=== PATIENT | male | born 1960 | race Caucasian/White ===

== ENCOUNTER 2018-05-31 11:46 | Inpatient (IN) | payer OTHER ==
[~2018-05-31] VITALS: Ht 185.4 cm; Wt 85.3 kg
[~2018-05-31 11:46] MED LIST: ASPI-983 PO; BIOT10005 PO; LORA-404 PO; MULT-517 PO
--- NOTE | 2018-05-31 12:28 | ED Neurological Problem ---
General Stated Complaint: DISORIENTED,AMS Source: patient Exam Limitations: no limitations History of Present Illness Date Seen by Provider: May 31, 2018 Time Seen by Provider: 12:02 Initial Comments Patient comes to the hospital with a chief complaint that he doesn't know what' s wrong. He says he was just in the hospital after a particularly bad alcoholic odom. He says he does not drink every day but he does drink on a binge basis. Wine beer. Says he got out he was feeling much better until yesterday about noon he started having tremors all over. He couldn't stop them. At 3:30 this morning he said he got up to go the bathroom and when he came back he rolled out of his bed. Says his last alcoholic drink was last night about 1900 he had one half glass of wine. He denies use of any recreational drugs although 2 days ago he does admit to having a single puff of marijuana. He says he landed on the floor all the way on his left side and he may have struck his head but he did not lose consciousness. He's having some soreness for the past day or so in his neck and he has a history of breaking his neck when he was younger. He is not having any weakness numbness or loss of control of bowel or bladder inability to walk. No fevers chills cough chest pain shortness of breath nausea vomiting diarrhea constipation or rash. Patient got up this morning to work out but just didn't feel up to it. He does take multivitamins and some testosterone supplements every day. He does not follow with a primary care provider. Allergies and Home Medications Allergies Coded Allergies: No Allergy Information Available (Unverified , 05/24/18) Home Medications Aspirin 81 Mg Tablet.dr, 81 MG PO DAILY, (Reported) Biotin 10,000 Mcg Capsule, 10,000 MCG PO DAILY, (Reported) Lorazepam 0.5 Mg Tablet, 0.5 MG PO TID PRN for ANXIETY Prescribed by: ESTIVEN AQUINO on 05/25/18 1034 Multivitamin 1 Each Tablet, 1 TAB PO DAILY, (Reported) Patient Home Medication List Home Medication List Reviewed: Yes Review of Systems Review of Systems Constitutional: No chills, No diaphoresis, No fever, No malaise Eyes: Denies Blindness, Denies Blurred Vision Ears, Nose, Mouth, Throat: denies ear pain, denies ear discharge Respiratory: No cough, No hemoptysis Cardiovascular: No chest pain, No Hx of Intervention, No palpitations, No syncope, No vascular heart diseas Gastrointestinal: No abdominal pain, No constipation, No diarrhea, No nausea, No vomiting Genitourinary: No discharge, No dysuria Musculoskeletal: No back pain, No joint pain; neck pain Skin: No pruritus, No rash Past Gapfnuc-Nmbnkt-Duagiz Hx Patient Social History Alcohol Use: Regular Use Alcohol Beverage of Choice: Wine Recreational Drug Use: Yes Drug of Choice: marijuana Smoking Status: Never a Smoker Type Used: Cigarettes Former Smoker, Quit: May 04, 2018 2nd Hand Smoke Exposure: No Recent Foreign Travel: No Contact w/Someone Who Travel: No Recent Hopitalizations: No Immunizations Up To Date Tetanus Booster (TDap): Unknown Seasonal Allergies Seasonal Allergies: No Past Medical History Surgeries: Yes Abdominal, Orthopedic Respiratory: No Cardiac: No Neurological: No Genitourinary: No Gastrointestinal: No Musculoskeletal: Yes (C-SPINE FRACTURE WHEN YOUNG. ) Endocrine: No HEENT: No Cancer: No Psychosocial: Yes (SUICIDAL IDEATION, ALCOHOLISM) Depression Integumentary: No Blood Disorders: No Adverse Reaction/Blood Tranf: No Family Medical History Patient reports no known family medical history. Hypertension Physical Exam Vital Signs Vital Signs - First Documented 05/31/18 05/31/18 11:53 14:36 Temp 98.8 Pulse 89 Resp 16 B/P (MAP) 114/76 (89) Pulse Ox 98 O2 Delivery Room Air Capillary Refill : Height, Weight, BMI Height: 6'0.00" Weight: 181lbs. 1.0oz. 82.656638jw; 24.6 BMI Method:Stated General Appearance: WD/WN, no apparent distress HEENT: PERRL/EOMI, normal ENT inspection, TMs normal, pharynx normal Neck: full range of motion, supple, normal inspection, tender midline ( posterior C6-C7) Respiratory: chest non-tender, lungs clear, normal breath sounds, no respiratory distress, no accessory muscle use Cardiovascular: normal peripheral pulses, regular rate, rhythm, no edema Peripheral Pulses: 2+ Radial Pulses (R), 2+ Radial Pulses (L) Gastrointestinal: normal bowel sounds, non tender, soft Back: normal inspection, no vertebral tenderness Extremities: normal range of motion, normal inspection, no pedal edema, normal capillary refill Neurologic/Psychiatric: no motor/sensory deficits, alert, normal mood/affect, oriented x 3 Crainal Nerves: normal hearing, normal speech, PERRL Coordination/Gait: normal finger to nose, normal gait Motor/Sensory: no motor deficit, no sensory deficit, no pronator drift Skin: normal color, warm/dry Progress/Results/Core Measures Results/Orders Lab Results Laboratory Tests Test 05/31/18 12:19 05/31/18 14:18 05/31/18 14:35 Range/Units White Blood Count 6.3 4.3-11.0 10^3/uL Red Blood Count 3.96 L 4.35-5.85 10^6/uL Hemoglobin 12.5 L 13.3-17.7 G/DL Hematocrit 36 L 40-54 % Mean Corpuscular Volume 92 80-99 FL Mean Corpuscular Hemoglobin 32 25-34 PG Mean Corpuscular Hemoglobin Concent 34 32-36 G/DL Red Cell Distribution Width 15.1 H 10.0-14.5 % Platelet Count 207 130-400 10^3/uL Mean Platelet Volume 8.6 7.4-10.4 FL Neutrophils (%) (Auto) 62 42-75 % Lymphocytes (%) (Auto) 20 12-44 % Monocytes (%) (Auto) 16 H 0-12 % Eosinophils (%) (Auto) 1 0-10 % Basophils (%) (Auto) 1 0-10 % Neutrophils # (Auto) 3.9 1.8-7.8 X 10^3 Lymphocytes # (Auto) 1.3 1.0-4.0 X 10^3 Monocytes # (Auto) 1.0 0.0-1.0 X 10^3 Eosinophils # (Auto) 0.1 0.0-0.3 10^3/uL Basophils # (Auto) 0.1 0.0-0.1 10^3/uL Sodium Level 139 135-145 MMOL/L Potassium Level 3.5 L 3.6-5.0 MMOL/L Chloride Level 103 98-107 MMOL/L Carbon Dioxide Level 26 21-32 MMOL/L Anion Gap 10 5-14 MMOL/L Blood Urea Nitrogen 14 7-18 MG/DL Creatinine 0.84 0.60-1.30 MG/DL Estimat Glomerular Filtration Rate > 60 BUN/Creatinine Ratio 17 Glucose Level 154 H 70-105 MG/DL Calcium Level 9.3 8.5-10.1 MG/DL Corrected Calcium 9.5 8.5-10.1 MG/DL Magnesium Level 2.3 1.8-2.4 MG/DL Total Bilirubin 0.6 0.1-1.0 MG/DL Aspartate Amino Transf (AST/SGOT) 53 H 5-34 U/L Alanine Aminotransferase (ALT/SGPT) 89 H 0-55 U/L Alkaline Phosphatase 104 40-136 U/L Total Protein 6.3 L 6.4-8.2 GM/DL Albumin 3.8 3.2-4.5 GM/DL Thyroid Stimulating Hormone (TSH) 0.91 0.35-4.94 UIU/ML Serum Alcohol < 10 <10 MG/DL Ammonia 45 H 11-32 UMOL/L My Orders Orders - MARIAJOSE PLASCENCIA Ct Head/Cervical Spine Wo (05/31/18 12:16) Saline Lock/Iv-Start (05/31/18 12:16) Alcohol (05/31/18 12:16) Cbc With Automated Diff (05/31/18 12:16) Comprehensive Metabolic Panel (05/31/18 12:16) Magnesium (05/31/18 12:16) Thyroid Stimulating Hormone (05/31/18 12:16) Ketorolac Injection (Toradol Injection) (05/31/18 12:30) Ammonia (05/31/18 13:29) Ua Culture If Indicated (05/31/18 14:09) Drug Screen Stat (Urine) (05/31/18 14:09) Acetaminophen (05/31/18 14:09) Salicylate (05/31/18 14:09) Ekg Tracing (05/31/18 14:09) Bh Status Checks/Observation Q15M (05/31/18 14:09) Thiamine Injection (Vitamin B-1 Injectio (05/31/18 14:45) Ns Iv 500 Ml (Sodium Chloride 0.9%) (05/31/18 14:56) Medications Given in ED Current Medications Medications Dose Ordered Sig/Ernie Route Start Time Stop Time Status Last Admin Dose Admin Ketorolac Tromethamine 30 mg ONCE ONCE IM 05/31/18 12:30 05/31/18 12:31 DC 05/31/18 12:54 30 MG Vital Signs/I&O 05/31/18 05/31/18 11:53 14:36 Temp 98.8 Pulse 89 84 Resp 16 16 B/P (MAP) 114/76 (89) 136/89 (105) Pulse Ox 98 O2 Delivery Room Air Room Air Progress Progress Note #1: Time: 12:29 Progress Note Patient has tremors and this seems to be the thing that some vexing him. He is neurologically intact. He did have a fall and is having some tenderness in his neck. We have discussed doing a CT to rule out occult intracranial hemorrhage and look at his cervical spine since she's having some tenderness midline. He is not having any radiculopathy symptoms. We'll check some basic labs look for electrolyte disorders. Not having any other focal symptoms. If he had a have a glass of wine over 12 hours ago I would expect him to have a negative alcohol level. I reviewed his admission and discharge note from May 24, last week. He indicates that he is having a lifetime history of drinking alcohol until suicide attempts and suicidal ideation in the past as well as he had grabbed a shot gun and threatened to shoot himself while having an apartment with his daughter and was brought in by PD. Does not seem that he was extremely cooperative or forthcoming with providers and he was given a small supply of Ativan and sent home to follow up outpatient. When asked the patient if he wanted something for his neck pain offered him a shot or tablets and he asked me how many tablets I was going to give him to go home with. He is also adamant that he does not want to a urine drug screen done today. Think we can rule out any medical concerns his tremulousness is probably consistent with ceasing use of alcohol and DVTs and we will point him in the direction of outpatient drug and alcohol treatment. Progress Note #2: Time: 14:42 Progress Note Nursing staff witnessed the patient yelling at the neighboring patient saying that he was talking about his private information and he was going to myah the hospital and doctors as well as beat up that other patient. There was no one in the room with the patient at the time. The daughter also showed up and gave some more history that the patient's been acting bizarrely and had a much stronger history of drinking than what he is letting on. If he is a full-blown alcoholic and that she found 48 double bottles of wine in his house 5 days after he moved in that were not there 5 days prior when they helped him move then. She says that he also tells his friends here and [place] that he's out spinning time with his daughters with the daughter say that he is telling the daughters he is spinning all his time with friends. She suspects he just sits at home and drinks alcohol all day. He's had a couple trips to rehabilitation over the years and always leaves prematurely. She says he's had hallucinations before since getting to [place] but no history of psychiatric diagnoses. At this time his ammonia levels elevated which could be causing a hepatic encephalopathy but I'm also suspicious for work encephalopathy since this is been going on for several weeks. I ordered 500 mg of thiamine to be given over 30 minutes in addition to lactulose. Spoke to internal medicine about admitting the patient. At this time the patient is also telling me that he has completely quit drinking and does not intend to restart. Lab advises me that the alcohol level is actually 0 and that the original lab value was incorrect. Apparently this is a calibration issue. Diagnostic Imaging Diagonstic Imaging: CT (c/o) Plain Films/CT/US/NM/MRI: c-spine, head Comments VIA [facility]. [place], [place] NAME: JULITO FLOREZ [facility] REC#: [id number] PT STATUS: REG ER : 1960 PHYSICIAN: MARIAJOSE PLASCENCIA MD ADMIT DATE: 05/31/18/ER Draft Date of Exam:05/31/18 CT HEAD/CERVICAL SPINE WO INDICATION: Tremors and fall with head and neck pain. CT BRAIN FINDINGS: Noncontrast brain CT is performed. There are no extra-axial fluid collections. No intracranial hemorrhage. No intracranial mass or mass effect. No midline shift. The ventricles are normal in size and position. There are no focal parenchymal abnormalities in the brain. Calvarial windows are unremarkable. CT CERVICAL SPINE FINDINGS: Axial slices are obtained with sagittal and coronal reconstructions without contrast. There are degenerative changes at C1-2 junction. There are diffuse degenerative changes throughout the cervical spine, most prominent at C4-5 and C5-6 with osteophyte formation anteriorly. There is diffuse mild facet degenerative change. IMPRESSION: CT brain was unremarkable. CT cervical spine demonstrates multilevel degenerative changes with no acute fracture or subluxation. Dictated on workstation # [id number] Dict: 05/31/18 1252 Trans: 05/31/18 1258 [id number] Interpreted by: JAZMINE COTA MD Electronically signed by: Reviewed: Reviewed by Me Departure Communication (Admissions) Time/Spoke to Admitting Phy: 14:[address] Potts and she agrees to take the patient. Impression Primary Impression: Hepatic encephalopathy Additional Impression: Wernicke encephalopathy syndrome Disposition: ADMITTED INPATIENT Condition: Stable Admissions Decision to Admit Reason: Admit from ER (General) Decision to Admit/Date: May 31, 2018 Time/Decision to Admit Time: 15:07 Departure-Patient Inst. Referrals: NO,LOCAL PHYSICIAN (PCP/Family) Primary Care Physician MARIAJOSE PLASCENCIA May 31, 2018 12:28
[2018-05-31 12:29] LABS: BASOPHILS # (AUTO) 0.1 10^3/uL (0.0-0.1); BASOPHILS % (AUTO) 1 % (0-10); EOSINOPHILS # (AUTO) 0.1 10^3/uL (0.0-0.3); EOSINOPHILS % (AUTO) 1 % (0-10); HEMATOCRIT 36 % (40-54); HEMOGLOBIN 12.5 G/DL (13.3-17.7); LYMPHOCYTES # (AUTO) 1.3 X 10^3 (1.0-4.0); LYMPHOCYTES % (AUTO) 20 % (12-44); MEAN CORPUSCULAR HEMOGLOBIN 32 PG (25-34); MEAN CORPUSCULAR HGB CONC 34 G/DL (32-36); MEAN CORPUSCULAR VOLUME 92 FL (80-99); MEAN PLATELET VOLUME 8.6 FL (7.4-10.4); MONOCYTES % (AUTO) 16 % (0-12); NEUTROPHILS # (AUTO) 3.9 X 10^3 (1.8-7.8); NEUTROPHILS % (AUTO) 62 % (42-75); PLATELET COUNT 207 10^3/uL (130-400); RED BLOOD COUNT 3.96 10^6/uL (4.35-5.85); RED CELL DISTRIBUTION WIDTH 15.1 % (10.0-14.5); WHITE BLOOD COUNT 6.3 10^3/uL (4.3-11.0)
[2018-05-31] MEDS ORDERED: KETOROLAC 30 MG/ML VIAL IM ONE (12:30)
[2018-05-31 12:52] LABS: ALANINE AMINOTRANSFERASE 89 U/L (0-55); ALBUMIN 3.8 GM/DL (3.2-4.5); ALKALINE PHOSPHATASE 104 U/L (40-136); BILIRUBIN,TOTAL 0.6 MG/DL (0.1-1.0); BUN/CREATININE RATIO 17; CALCIUM 9.3 MG/DL (8.5-10.1); CARBON DIOXIDE 26 MMOL/L (21-32); CHLORIDE 103 MMOL/L (98-107); CREATININE SERUM 0.84 MG/DL (0.60-1.30); GFR ESTIMATED > 60; GLUCOSE 154 MG/DL (70-105); MAGNESIUM 2.3 MG/DL (1.8-2.4); POTASSIUM 3.5 MMOL/L (3.6-5.0); SODIUM 139 MMOL/L (135-145); TOTAL PROTEIN 6.3 GM/DL (6.4-8.2)
--- NOTE | 2018-05-31 12:58 | Diagnostic Imaging Report ---
INDICATION: Tremors and fall with head and neck pain. CT BRAIN FINDINGS: Noncontrast brain CT is performed. There are no extra-axial fluid collections. No intracranial hemorrhage. No intracranial mass or mass effect. No midline shift. The ventricles are normal in size and position. There are no focal parenchymal abnormalities in the brain. Calvarial windows are unremarkable. CT CERVICAL SPINE FINDINGS: Axial slices are obtained with sagittal and coronal reconstructions without contrast. There are degenerative changes at C1-2 junction. There are diffuse degenerative changes throughout the cervical spine, most prominent at C4-5 and C5-6 with osteophyte formation anteriorly. There is diffuse mild facet degenerative change. IMPRESSION: CT brain was unremarkable. CT cervical spine demonstrates multilevel degenerative changes with no acute fracture or subluxation. Dictated by: Dictated on workstation # [id number]
[2018-05-31 14:36] VITALS: BP 136/89
[2018-05-31] MEDS ORDERED: THIAMINE 100 MG/ML 2 ML (VITAMIN B-1) VIAL IV ONE (14:45)
[2018-05-31 14:54] LABS: BILIRUBIN,URINE NEGATIVE (NEGATIVE); CLARITY,URINE CLEAR; COLOR,URINE YELLOW; GLUCOSE, URINE (UA) NEGATIVE (NEGATIVE); KETONES,URINE 2+ (NEGATIVE); LEUKOCYTE ESTERASE ,URINE 1+ (NEGATIVE); NITRITE,URINE NEGATIVE (NEGATIVE); PH,URINE 5 (5-9); PROTEIN,URINE 2+ (NEGATIVE); UROBILINOGEN,URINE NORMAL (NORMAL)
[2018-05-31] MEDS ORDERED: NS IV 500 ML 500 ML ONE (14:56)
[2018-05-31 15:06] LABS: BACTERIA,URINE TRACE /HPF; RBC,URINE RARE /HPF; SQUAMOUS EPITHELIAL CELL,UR RARE /HPF
[2018-05-31 15:08] LABS: AMPHETAMINE SCREEN, URINE NEGATIVE (NEGATIVE); BARBITURATE SCREEN URINE NEGATIVE (NEGATIVE); BENZODIAZEPINES SCREEN URINE NEGATIVE (NEGATIVE); CANNABINOID SCREEN, URINE POSITIVE (NEGATIVE); COCAINE SCREEN URINE NEGATIVE (NEGATIVE); METHADONE STAT NEGATIVE (NEGATIVE); METHAMPHETAMINE SCREEN URINE S NEGATIVE (NEGATIVE); OPIATE SCREEN URINE NEGATIVE (NEGATIVE); OXYCODONE STAT NEGATIVE (NEGATIVE); PROPOXYPHENE STAT NEGATIVE (NEGATIVE); TRICYCLIC ANTIDEPRESSANTS SCRE NEGATIVE (NEGATIVE)
[2018-05-31] MEDS ORDERED: LACTULOSE SYRUP 10GM/15ML (ENULOSE) 30ML UDC PO ONE (15:45)
[2018-05-31 16:02] LABS: SALICYLATE < 5.0 MG/DL (5.0-20.0)
[2018-05-31 16:05] LABS: ACETAMINOPHEN < 10 UG/ML (10-30)
[2018-05-31 17:20] VITALS: BP 138/75
[2018-05-31] MEDS ORDERED: 1/2 NS IV SOLUTION 1,000 ML IV PRN (17:37)
[2018-05-31] MEDS ORDERED: CATHETER FLUSH 10 ML SYR IV PRN (17:45)
[2018-05-31] MEDS ORDERED: ANTACID SUSP 30 ML UDC (MYLANTA) PO PRN (17:45)
[2018-05-31] MEDS ORDERED: ONDANSETRON 4 MG/2 ML (SDV) Z0FRAN IV PRN ×2 (17:45)
[2018-05-31] MEDS ORDERED: LORazepam INJ 2 MG/ML (ATIVAN) VIAL IV PRN (17:45)
[2018-05-31] MEDS ORDERED: D5 1/2 NS 1000 ML IV SOLUTION 1,000 ML IV PRN (17:45)
[2018-05-31] MEDS ORDERED: SENNA W/DOCUSATE (SENOKOT S) TABLET PO PRN (17:45)
[2018-05-31] MEDS ORDERED: ONDANSETRON 4 MG (ZOFRAN) ORAL DISSOLVE TAB SL PRN (17:45)
[2018-05-31] MEDS ORDERED: LORazepam INJ 2 MG/ML (ATIVAN) VIAL IM/IV PRN (17:45)
[2018-05-31] MEDS: KETOROLAC 15 MG/ML VIAL IV PRN (18:06)
[2018-05-31] MEDS: LORazepam 1 MG (ATIVAN) TAB PO PRN ×5 (18:06→23:52)
[2018-05-31 20:17] VITALS: BP 115/69
[2018-05-31] MEDS: LACTULOSE SYRUP 10GM/15ML (ENULOSE) 30ML UDC PO SCH (20:48)
[2018-05-31] MEDS ORDERED: THIAMINE INJECTION 500 MG in NS (IVPB) 50 ML IV SCH (21:00)
[2018-05-31] MEDS: CATHETER FLUSH 10 ML SYR IV SCH (22:13)
[2018-05-31] MEDS: THIAMINE IV SCH (22:13)
[2018-05-31] MEDS: NS IV SCH (22:13)
[2018-06-01] VITALS: BP 107/62
[2018-06-01 04:00] VITALS: BP 121/70
[2018-06-01] MEDS: LORazepam 1 MG (ATIVAN) TAB PO PRN ×2 (04:07→21:38)
[2018-06-01 05:24] LABS: BASOPHILS % (AUTO) 1 % (0-10); EOSINOPHILS # (AUTO) 0.2 10^3/uL (0.0-0.3); EOSINOPHILS % (AUTO) 3 % (0-10); HEMATOCRIT 34 % (40-54); HEMOGLOBIN 11.5 G/DL (13.3-17.7); LYMPHOCYTES # (AUTO) 1.6 X 10^3 (1.0-4.0); LYMPHOCYTES % (AUTO) 31 % (12-44); MEAN CORPUSCULAR HEMOGLOBIN 32 PG (25-34); MEAN CORPUSCULAR HGB CONC 34 G/DL (32-36); MEAN CORPUSCULAR VOLUME 92 FL (80-99); MEAN PLATELET VOLUME 8.5 FL (7.4-10.4); MONOCYTES # (AUTO) 0.8 X 10^3 (0.0-1.0); MONOCYTES % (AUTO) 16 % (0-12); NEUTROPHILS # (AUTO) 2.7 X 10^3 (1.8-7.8); NEUTROPHILS % (AUTO) 50 % (42-75); PLATELET COUNT 195 10^3/uL (130-400); RED BLOOD COUNT 3.63 10^6/uL (4.35-5.85); RED CELL DISTRIBUTION WIDTH 15.1 % (10.0-14.5); WHITE BLOOD COUNT 5.4 10^3/uL (4.3-11.0)
[2018-06-01 05:45] LABS: ALANINE AMINOTRANSFERASE 68 U/L (0-55); ALBUMIN 3.2 GM/DL (3.2-4.5); ALKALINE PHOSPHATASE 85 U/L (40-136); AMMONIA 19 UMOL/L (11-32); BILIRUBIN,TOTAL 0.5 MG/DL (0.1-1.0); BUN/CREATININE RATIO 16; CALCIUM 8.5 MG/DL (8.5-10.1); CARBON DIOXIDE 25 MMOL/L (21-32); CHLORIDE 104 MMOL/L (98-107); CREATININE SERUM 0.75 MG/DL (0.60-1.30); GFR ESTIMATED > 60; GLUCOSE 100 MG/DL (70-105); POTASSIUM 3.3 MMOL/L (3.6-5.0); SODIUM 138 MMOL/L (135-145); TOTAL PROTEIN 5.2 GM/DL (6.4-8.2)
[2018-06-01] MEDS: MULTIVIT W/MINERALS TAB (THERAGRAN M) PO SCH (07:09)
[2018-06-01] MEDS: KETOROLAC 15 MG/ML VIAL IV PRN (07:09)
[2018-06-01] MEDS: CATHETER FLUSH 10 ML SYR IV SCH ×3 (07:10→21:14)
[2018-06-01] MEDS ORDERED: POTASSIUM CL 10MEQ/50ML IVPB 50 ML IV SCH (07:15)
[2018-06-01] MEDS ORDERED: KCL 20 MEQ POWDER FOR ORAL SOLUTION PO NR (07:15)
[2018-06-01 08:00] VITALS: BP 106/55
[2018-06-01] MEDS: FOLIC ACID 1 MG TAB PO SCH (08:27)
[2018-06-01] MEDS: ASPIRIN 81 MG CHEW (CHILDREN'S ASA) PO SCH (08:27)
[2018-06-01] MEDS: LACTULOSE SYRUP 10GM/15ML (ENULOSE) 30ML UDC PO SCH ×3 (08:27→21:14)
[2018-06-01] MEDS: THIAMINE IV SCH ×3 (08:27→21:14)
[2018-06-01] MEDS: NS IV SCH ×3 (08:27→21:14)
--- NOTE | 2018-06-01 08:27 | History & Physical-Hospitalist ---
History of Present Illness HPI/Chief Complaint Pt is a 58yoCM with a PMH of alcohol abuse who presented to the ER yesterday for evaluation of tremors after a fall. He does not recall how he feel but he hit his back and neck and was worried he injured it since he has a previous neck injury from 40 years ago. During his stay in the hospital he was found to have auditory hallucinations in his room. He was yelling at a "person" in the room next door that he had heard talking about him. Nursing staff confirmed there was no person in the room or near the patient. Today he states he's been having auditory hallucination for the past week since he quit drinking. He has a long history of very heavy drinking since he was 20yo until the age of 42. Then he "cut back" to 4-5 beers and 2-3 glasses of wine per night. He states he was sober for 3 years ago (though admits to drinking occasionally during that time but "only a few beers here and there"). Roughly 3 weeks ago he resumed binge drinking and was drinking 2 bottles of wine per day. He was hospitalized 1 week ago for depression with suicidal ideation and withdraw. He was screened by mental health and recommended to follow up with AA which he states he's done. He also told me that he has been completely sober in the past week and has not had any alcohol. He told the ER physician he had a half glass of wine the night before admission (05/30) though. When confronted with this he states he did have a half glass of wine but that it was on Wednesday. He is requesting benzos as he believes them to be "non addictive" and will replace his alcohol use that he uses to treat his anxiety. He reports a history of withdrawal form benzos a few year ago where he had a withdrawal seizure. Source: patient Exam Limitations: other (poor historian with varying history) Date Seen 06/01/18 Time Seen by Provider: 08:11 Attending Physician Marco Antonio Potts MD PCP No,Local Physician Referring Physician Date of Admission May 31, 2018 at 3:19 pm Home Medications & Allergies Home Medications Reviewed patient Home Medication Reconciliation performed by pharmacy medication reconciliations pipe organ technician and/or nursing. Patients Allergies have been reviewed. Allergies Allergies Coded Allergies No Allergy Information Available (Unverified05/24/18) Past Slpfwen-Qnrfyl-Byizix Hx Past Med/Social Hx: Reviewed Nursing Past Med/Soc Hx Patient Social History Marrital Status: Alcohol Use: Regular Use Alcohol Beverage of Choice: Beer, Wine Recreational Drug Use: Yes Drug of Choice: marijuana Smoking Status: Former Smoker Former Smoker, Quit: May 04, 2018 Type Used: Cigarettes 2nd Hand Smoke Exposure: No Physical Abuse Screen: No Sexual Abuse: No Recent Foreign Travel: No Contact w/other who traveled: No Recent Hopitalizations: Yes Recent Infectious Disease Expo: No Immunizations Up To Date Tetanus Booster (TDap): Unknown Seasonal Allergies Seasonal Allergies: No Past Medical History Surgeries: Abdominal, Orthopedic Psychosocial: Anxiety, Depression History of Blood Disorders: No Adverse Reaction to Blood [place]: No Family History Reviewed Nursing Family Hx Patient reports no known family medical history. Hypertension Review of Systems Constitutional: No chills, No fever EENTM: No blurred vision, No double vision, No nose congestion, No throat pain Respiratory: No cough, No dyspnea on exertion, No short of breath Cardiovascular: No chest pain, No edema, No palpitations Gastrointestinal: No abdominal pain, No constipation, No diarrhea, No nausea, No vomiting Genitourinary: No dysuria, No frequency Musculoskeletal: No joint pain, No muscle pain Skin: No lesions, No rash Psychiatric/Neurological: Anxiety, Depressed, Tremors Physical Exam Physical Exam Vital Signs Vital Signs - First Documented 05/31/18 05/31/18 11:53 14:36 Temp 98.8 Pulse 89 Resp 16 B/P (MAP) 114/76 (89) Pulse Ox 98 O2 Delivery Room Air Capillary Refill : Less Than 3 Seconds Height, Weight, BMI Height: 6'1.00" Weight: 188lbs. 0.0oz. 85.115886am; 24.8 BMI Method:Stated General Appearance: No Apparent Distress, WD/WN, Anxious HEENT: PERRL/EOMI, Moist Mucous Membranes; No Scleral Icterus (L), No Scleral Icterus (R) Respiratory: Lungs Clear, No Respiratory Distress Cardiovascular: Regular Rate, Rhythm, No Murmur Gastrointestinal: Normal Bowel Sounds, Non Tender, Soft Extremity: No Pedal Edema Neurologic/Psychiatric: Alert, Oriented x3 Results Results/Procedures Labs Laboratory Tests 05/31/18 12:19 06/01/18 05:20 Patient resulted labs reviewed. Imaging: Reviewed Imaging Report Assessment/Plan Admission Diagnosis Encephalopathy Admission Status: Inpatient Order (span 2 midnights) Reason for Inpatient Admission: Will likely take more than two midnights to treat and stabilize in order for discharge Diagnosis/Problems Diagnosis/Problems (1) Wernicke encephalopathy syndrome Status: Acute Assessment & Plan: Unsure if Wernicke's or withdrawal symptoms but will treat preemptively Received 500mg of Thiamine in ER yesterday Continue 300mg daily (2) Alcohol abuse Assessment & Plan: Collision Repair Technician consulted patient reports desire to quit drinking but declined referrals to treatment center to both me and the social research assistant Continue MTV and Thiamine CIWA protocol (3) Hepatic encephalopathy Status: Acute Assessment & Plan: Ammonia level normal today Continue Lactulose Clinical Quality Measures DVT/VTE Risk/Contraindication: Risk Factor Score Per Nursin RFS Level Per Nursing on Admit: 1=Low/No VTE PPX MARCO ANTONIO POTTS MD Jun 01, 2018 8:27 am
--- NOTE | 2018-06-01 10:56 | Physical Therapy Evaluation ---
PT Evaluation-General Medical Diagnosis Admission Date May 31, 2018 at 15:19 Medical Diagnosis: encephalopathy Onset Date: May 31, 2018 Therapy Diagnosis Therapy Diagnosis: impaired mobility, balance Height/Weight Height (Feet): 6 Height (Inches): 1.00 Weight (Pounds): 188 Weight (Ounces): 0.0 Precautions Precautions/Isolations: Seizure, Fall Prevention, Standard Precautions Weight Bear Status Right Lower Extremity: Right Weight Bearing/Tolerated Left Lower Extremity: Left Weight Bearing/Tolerated Referral Physician: Janice Potts MD Reason for Referral: Evaluation/Treatment Medical History Additional Medical History anxiety, depression, surg (orthopedic, abdominal) Current History Patient came to ER with tremors and fall Social History Home: Single Level Current Living Status: Alone Entry Into Home: Stairs With Railing PT Steps Into Home: 2 Prior/Core FIM Prior Level of Function Functional [place] Measure 0=Not Assessed/NA 4=Minimal Assistance 1=Total Assistance 5=Supervision or Setup 2=Maximal Assistance 6=Modified [place] 3=Moderate Assistance 7=Complete [place] Bed Mobility: 7 Transfers (B,C,W/C) (FIM): 7 Gait: 7 PT Evaluation-Current Subjective Patient in bed pre tx, agrees to PT, patient has no complaints of pain. He is impulsive and has shaking/tremors. Pt/Family Goals to be independent at home Objective Patient Orientation: Person, Place, Situation ROM/Strength ROM Lower Extremities WNL Strength Lower Extremities 5/5 gross bilateral lower extremities Neuromuscular (Tone, Coordination, Reflexes) Fortune slide test for coordination fair both sides, patient has no facial asymmetry, he does say that he has had some visual blurriness but it has resolved a lot. Sensory Vision: Functional Hearing: Functional Sensation Right Lower Extremit: Intact Sensation Left Lower Extremity: Intact Transfers Functional [place] Measure 0=Not Assessed/NA 4=Minimal Assistance 1=Total Assistance 5=Supervision or Setup 2=Maximal Assistance 6=Modified [place] 3=Moderate Assistance 7=Complete [place] Transfers (B, C, W/C) (FIM): 5 Scootin Rollin Supine to/from Sit: 6 Sit to/from Stand: 5 bed t/f WC(FIM only if WC use): 5 Impulsive, patient moves quickly, needs cues for safety. Gait Mode of Locomotion: Walk Anticipated Mode of Locomotion: Walk Gait (FIM): 5 Distance: 250' Gait Level of Assist: 5 Gait Persons Needed: 1 Gait Assistive Device: None Comments/Gait Description Patient ambulates briskly and with slightly uncoordinated steps, has a slightly deviating path. Balance Sitting Static: Normal Sitting Dynamic: Normal Standing Static: Fair Standing Dynamic: Fair Treatment Patient was toileted twice for a BM and performed sitting exercises x20 (LAQ, hip flexion, standing calf raises), sit to stand x10 Assessment/Needs Patient has impaired coordination, balance, is impulsive and displays decreased safety awareness. Patient is at risk for a fall. Patient in bed post tx with nurse call, phone, tray, bed alarm on. Rehab Potential: Fair PT Short Term Goals Short Term Goals Time Frame: Jun 08, 2018 Transfers (B,C,W/C) (FIM): 7 Gait (FIM): 7 Gait Distance Comment: 500' Gait Assistive Device: None PT Plan Problem List Problem List: Activity Tolerance, Functional Strength, Safety, Balance, Gait, Transfer Treatment/Plan Treatment Plan: Continue Plan of Care Treatment Plan: Education, Functional Activity Danna, Functional Strength, Gait , Safety, Therapeutic Exercise, Transfers Treatment Duration: Jun 08, 2018 Frequency: 6 times per week Estimated Hrs Per Day: .25 hour per day (15-30') Patient and/or Family Agrees t: Yes Safety Risks/Education Patient Education: Gait Training, Transfer Techniques, Correct Positioning, Safety Issues Teaching Recipient: Patient Teaching Methods: Demonstration, Discussion Response to Teaching: Reinforcement Needed Discharge Recommendations Plan Patient will perform bed mobility and transfer training, balance and endurance training, stair training, gait training, and education to improve functional mobility and independence at home. Therapy D/C Recommendations: Home w/ Family Support Time/GCodes Time In: 1025 Time Out: 1045 Total Billed Treatment Time: 20 Total Billed Treatment 1 visit DAVID 20' CHRISTOPHER WILLOUGHBY PT Jun 01, 2018 10:56
[2018-06-01 12:00] VITALS: BP 111/54
[2018-06-01] MEDS: IBUPROFEN 600 MG (MOTRIN) TAB PO SCH ×3 (13:57→23:29)
[2018-06-01 16:00] VITALS: BP 109/75
[2018-06-01] MEDS ORDERED: IBUPROFEN 600 MG (MOTRIN) TAB PO SCH (18:00)
[2018-06-01 19:51] VITALS: BP 116/73
[2018-06-02 00:07] VITALS: BP 110/63
[2018-06-02 04:44] VITALS: BP 120/77
[2018-06-02 05:39] LABS: BASOPHILS # (AUTO) 0.1 10^3/uL (0.0-0.1); BASOPHILS % (AUTO) 1 % (0-10); EOSINOPHILS # (AUTO) 0.2 10^3/uL (0.0-0.3); EOSINOPHILS % (AUTO) 3 % (0-10); HEMATOCRIT 36 % (40-54); HEMOGLOBIN 12.3 G/DL (13.3-17.7); LYMPHOCYTES # (AUTO) 1.9 X 10^3 (1.0-4.0); LYMPHOCYTES % (AUTO) 32 % (12-44); MEAN CORPUSCULAR HEMOGLOBIN 32 PG (25-34); MEAN CORPUSCULAR HGB CONC 34 G/DL (32-36); MEAN CORPUSCULAR VOLUME 93 FL (80-99); MEAN PLATELET VOLUME 8.9 FL (7.4-10.4); MONOCYTES # (AUTO) 0.9 X 10^3 (0.0-1.0); MONOCYTES % (AUTO) 15 % (0-12); NEUTROPHILS # (AUTO) 2.8 X 10^3 (1.8-7.8); NEUTROPHILS % (AUTO) 48 % (42-75); PLATELET COUNT 250 10^3/uL (130-400); RED BLOOD COUNT 3.89 10^6/uL (4.35-5.85); RED CELL DISTRIBUTION WIDTH 15.4 % (10.0-14.5); WHITE BLOOD COUNT 5.8 10^3/uL (4.3-11.0)
[2018-06-02 05:58] LABS: BUN/CREATININE RATIO 11; CALCIUM 8.4 MG/DL (8.5-10.1); CARBON DIOXIDE 25 MMOL/L (21-32); CHLORIDE 106 MMOL/L (98-107); CREATININE SERUM 0.75 MG/DL (0.60-1.30); GFR ESTIMATED > 60; GLUCOSE 103 MG/DL (70-105); POTASSIUM 3.4 MMOL/L (3.6-5.0); SODIUM 137 MMOL/L (135-145)
[2018-06-02] MEDS: CATHETER FLUSH 10 ML SYR IV SCH (06:02)
[2018-06-02] MEDS: IBUPROFEN 600 MG (MOTRIN) TAB PO SCH (06:02)
[2018-06-02] MEDS: MULTIVIT W/MINERALS TAB (THERAGRAN M) PO SCH (06:02)
[2018-06-02 07:31] VITALS: BP 116/73
--- NOTE | 2018-06-02 08:27 | Discharge Summary-Hospitalist ---
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 reports desire to quit drinking but declined referrals to treatment center to both me and the child welfare social worker Continue MTV and Thiamine CIWA protocol Today would like information on AA and Restore (3) Hepatic encephalopathy Status: Acute Assessment & Plan: Ammonia level normal today Continue Lactulose Discharge Summary Discharge Physical Exam Allergies: Coded Allergies: No Allergy Information Available (Unverified , 05/24/18) Vitals & I&Os General Appearance: No Apparent Distress, WD/WN Respiratory: Lungs Clear Cardiovascular: Regular Rate, Rhythm Neurologic/Psychiatric: Alert Hospital Course Pt was admitted with concerns for Wernicke's Encephalopathy. He was treated with high dose thiamine and monitoring for alcohol withdrawal. He completed his TID dosing while inpatient and was arranged to have daily outpatient thiamine injections. He was offered resources for alcohol abuse treatment but declined. He was discharged home in improved and stable condition. Labs (last 24 hrs) Patient resulted labs reviewed. Pending Labs Imaging: Reviewed Imaging Report Discussion & Recommendations Discharge Planning: >30 minutes discharge planning Discharge Home Medications: Active Scripts Active Ativan (Lorazepam) 0.5 Mg Tablet 0.5 Mg PO TID PRN Reported Biotin 10,000 Mcg Capsule 10,000 Mcg PO DAILY Men's Multi-Vitamin (Multivitamin) 1 Each Tablet 1 Tab PO DAILY Aspirin EC (Aspirin) 81 Mg Tablet. 81 Mg PO DAILY Instructions to patient/family Please see electronic discharge instructions given to patient. Clinical Quality Measures DVT/VTE Risk/Contraindication: Risk Factor Score Per Nursin RFS Level Per Nursing on Admit: 1=Low/No VTE PPX MARCO ANTONIO STEELE MD Jun 02, 2018 08:27
[2018-06-02] MEDS: FOLIC ACID 1 MG TAB PO SCH (08:35)
[2018-06-02] MEDS: THIAMINE IV SCH (08:35)
[2018-06-02] MEDS: NS IV SCH (08:35)
[2018-06-02] MEDS: ASPIRIN 81 MG CHEW (CHILDREN'S ASA) PO SCH (08:35)
[2018-06-02] MEDS: LACTULOSE SYRUP 10GM/15ML (ENULOSE) 30ML UDC PO SCH (08:35)
--- NOTE | 2018-06-02 09:23 | Discharge Inst-Simple/Standard ---
Discharge Inst-Standard Patient Instructions/Follow Up Plan of Care/Instructions/FU: Please follow up with day surgery (register at the surgery center) daily for the next 5 days to complete your Thiamine treatment. Please follow up with [facility] to establish care. Please quit drinking alcohol and continue to follow up with AA. Please follow up with MACARENA Dominguez at [facility] on 05/28 at 1:20pm. If you cannot make that appointment please call [phone] Activity as Tolerated: Yes Discharge Diet: No Restrictions Return to The Hospital For: Confusion, tremors, seizures, if you feel you are getting worse. MARCO ANTONIO STEELE MD Jun 02, 2018 9:21 am
== END 2018-06-02 11:41 | disposition home or self-care (01) | DRG 897 ==
LOC: EDUNIT# 11:46 → ER 11:49 → 4TH 15:19
PROVIDERS: ADMIT Family Medicine; ATTEND Family Medicine
DX: F10.231 Alcohol dependence with withdrawal delirium (principal); E51.2 Wernicke's encephalopathy; K72.90 Hepatic failure, unspecified without coma; R44.0 Auditory hallucinations; F12.90 Cannabis use, unspecified, uncomplicated; F41.9 Anxiety disorder, unspecified; F32.9 Major depressive disorder, single episode, unspecified; Z87.891 Personal history of nicotine dependence; Z91.5 Personal history of self-harm; S19.9XXA Unspecified injury of neck, initial encounter; W06.XXXA Fall from bed, initial encounter; Y92.003 Bedroom of unspecified non-institutional (private) residence as the place of occurrence of the external cause
CPT/HCPCS: 36415; 70450; 72125; 80048; 80053; 80306; 80320; 80329; 81000; 82140; 83735; 84443; 85025; 93005; 96372; 96374

== ENCOUNTER 2018-06-07 08:35 | Outpatient (RCR) | payer OTHER ==
[2018-06-03 11:07] VITALS: BP 128/83
[2018-06-03] MEDS: THIAMINE 100 MG/ML 2 ML (VITAMIN B-1) VIAL IM SCH (11:07)
[2018-06-04 09:00] VITALS: BP 129/95
[2018-06-04] MEDS: THIAMINE 100 MG/ML 2 ML (VITAMIN B-1) VIAL IM SCH (09:14)
[2018-06-05] MEDS: THIAMINE 100 MG/ML 2 ML (VITAMIN B-1) VIAL IM SCH (07:58)
[2018-06-05 08:00] VITALS: BP 128/105
[2018-06-06 08:15] VITALS: BP 120/77
[2018-06-06] MEDS: THIAMINE 100 MG/ML 2 ML (VITAMIN B-1) VIAL IM SCH (08:15)
[~2018-06-07] VITALS: Ht 185.4 cm; Wt 85.3 kg
[2018-06-07 08:50] VITALS: BP 114/75
[2018-06-07] MEDS: THIAMINE 100 MG/ML 2 ML (VITAMIN B-1) VIAL IM SCH (08:50)
== END 2018-06-26 | disposition home or self-care (01) ==
LOC: SDC 08:35
PROVIDERS: ATTEND Family Medicine
DX: E51.2 Wernicke's encephalopathy (principal)
CPT/HCPCS: 96372

== ENCOUNTER 2019-08-29 12:53 | Emergency (ER) | payer SELFPAY ==
[~2019-08-29] VITALS: Ht 185 cm; Wt 95.0 kg
[2019-08-29] MEDS ORDERED: CEPH500T PO (13:54)
[2019-08-29] MEDS ORDERED: HYDR-34 PO (13:54)
--- NOTE | 2019-08-29 13:55 | ED Upper Extremity ---
General Chief Complaint: Laceration Stated Complaint: R THUMB LAC Source: patient Exam Limitations: no limitations History of Present Illness Date Seen by Provider: Aug 29, 2019 Time Seen by Provider: 13:49 Initial Comments To ER with laceration to the tip of the right thumb through the nail plate into the nailbed after shutting his accidentally in a storm door just prior to arrival.. Tetanus is up-to-date within the past 3 years. Onset: just prior to arrival Severity: moderate Pain/Injury Location: right thumb Method of Injury: unknown Modifying Factors: Worse With Movement Allergies and Home Medications Allergies Coded Allergies: No Allergy Information Available (Unverified , 05/24/18) Home Medications Aspirin 81 Mg Tablet.dr, 81 MG PO DAILY, (Reported) Biotin 10,000 Mcg Capsule, 10,000 MCG PO DAILY, (Reported) Cephalexin 500 Mg Tablet, 500 MG PO TID Prescribed by: INNA ANNE on 08/29/19 1354 Hydrocodone Bit/Acetaminophen 1 Ea Tablet, 1 EACH PO Q6H PRN for PAIN-MODERATE (5-7) Prescribed by: INNA ANNE on 08/29/19 1354 Lorazepam 0.5 Mg Tablet, 0.5 MG PO TID PRN for ANXIETY Prescribed by: ESTIVEN AQUINO on 05/25/18 1034 Multivitamin 1 Each Tablet, 1 TAB PO DAILY, (Reported) Patient Home Medication List Home Medication List Reviewed: Yes Review of Systems Constitutional: see HPI EENTM: see HPI Respiratory: no symptoms reported Cardiovascular: no symptoms reported Genitourinary: no symptoms reported Musculoskeletal: no symptoms reported Skin: see HPI Psychiatric/Neurological: No Symptoms Reported Past Uihizor-Pqbbfj-Avssxw Hx Patient Social History Alcohol Beverage of Choice: Beer, Wine Drug of Choice: marijuana Type Used: Cigarettes Former Smoker, Quit: May 04, 2018 2nd Hand Smoke Exposure: No Recent Foreign Travel: No Contact w/Someone Who Travel: No Recent Hopitalizations: Yes Immunizations Up To Date Tetanus Booster (TDap): Unknown Seasonal Allergies Seasonal Allergies: No Past Medical History Surgeries: Yes Abdominal, Orthopedic Respiratory: No Cardiac: No Neurological: No Genitourinary: No Gastrointestinal: No Musculoskeletal: Yes (C-SPINE FRACTURE WHEN YOUNG. ) Endocrine: No HEENT: No Cancer: No Psychosocial: Yes (SUICIDAL IDEATION, ALCOHOLISM) Anxiety, Depression Integumentary: No Blood Disorders: No Adverse Reaction/Blood Tranf: No Family Medical History Patient reports no known family medical history. Hypertension Physical Exam Vital Signs Capillary Refill : Height, Weight, BMI Height: 6'1.00" Weight: 188lbs. 0.0oz. 85.858589hw; 24.8 BMI Method:Stated General Appearance: WD/WN, no apparent distress HEENT: PERRL/EOMI, normal ENT inspection Respiratory: no respiratory distress, no accessory muscle use Shoulder: normal inspection, non-tender Elbow/Forearm: normal inspection, non-tender Wrist: Yes normal inspection, Yes non-tender Hand: Right, laceration (there is a laceration through the mid aspect all the way across the nail plate on the right thumb, this is down into the nail bed. I recommended an x-ray, he doesn't want this because he doesn't think it's broken. He also states that he just retired and doesn't have insurance. He has brisk capillary refill of the tip of the finger, throbbing sensation in regards to pain. I did recommend that we numb the finger up, remove the entire nail plate, suture the nailbed laceration. He is concerned about finances given the lack of insurance, he is aware of the financial assistance available here, prefer not to do that. Alternatively he asked what we can do. Advised him we could just splint this as is, antibiotics, pain medication and allow this to heal via secondary intention over the course of the next few weeks. He would prefer that treatment plan. As such this was wrapped with Xeroform, tube gauze. We will then provide him with a splint to go home hydrocodone for pain and antibiotics being Keflex.) Neurologic/Tendon: normal tendon functions (he can flex the thumb at the IP joint), responds to pain Neurologic/Psychiatric: alert, normal mood/affect, oriented x 3 Skin: normal color, warm/dry Departure Impression Primary Impression: Finger laceration Qualified Codes: S61.111A - Laceration without foreign body of right thumb with damage to nail, initial encounter Disposition: HOME, SELF-CARE Condition: Stable Departure-Patient Inst. Decision time for Depature: 13:52 Referrals: DELFINO SALTER,LOCAL PHYSICIAN (PCP) Primary Care Physician Patient Instructions: Wound Care Add. Discharge Instructions: 1. Keep a dressing over this for the next 10 days. Wear the splint for the next 10 days to 2 weeks. Follow-up with primary care within the next week for recheck of this. Return to ER for any fevers increased swelling or other concerns. All discharge instructions reviewed with patient and/or family. Voiced understanding. Scripts Hydrocodone Bit/Acetaminophen (LORTAB 7.5 MG TABLET) 1 Ea Tablet 1 EACH PO Q6H PRN for PAIN-MODERATE (5-7), #14 TAB 0 Refills Prov: INNA ANNE APRN 08/29/19 Cephalexin (Cephalexin) 500 Mg Tablet 500 MG PO TID, #20 TAB 0 Refills Prov: INNA ANNE APRN 08/29/19 Images Extremities-Upper 1 - Laceration INNA ANNE APRN Aug 29, 2019 13:54 POS
[2019-08-29] MEDS ORDERED: HYDROcodone/APAP 5 MG/325 MG (LORTAB) TAB PO ONE (14:00)
[2019-08-29 14:06] VITALS: BP 142/68
--- OUTSIDE RECORDS SUMMARY | 2019-09-23 19:39 | XMS REPORT ---
Author Author Ruiz STEWARD Organization [facility] Address [address] [place] [address] Care Team Providers Care Environmental Permitting Specialist Name Role Phone SAM STEWARD Unavailable PROBLEMS Type Condition ICD9-CM Code UGS63-[id number] Code Onset Dates Condition S tatus SNOMED Code Problem Erectile dysfunction, unspecified erectile dysfunction typ e N52.9 Active 224473452 Problem Grieving F43.21 Active 895493255 Problem RYAN (generalized anxiety disorder) F41.1 Active 45773165 ALLERGIES No Information ENCOUNTERS Encounter Location Date Diagnosis [place] [address] [address] [facility] [id number] [address] [place] [phone] Aug, RYAN (generalized anxiety dis order) F41.1 [place] [address] [address] [facility] [id number] [address] [place] [phone] Jun, RYAN (generalized anxiety dis order) F41.1 [place] [address] [address] [facility] [id number] [address] [place] [phone] Jun, Grieving F43.21 and Erectile dysfunction, unspecified erectile dysfunction type N52.9 [place] [address] [address] [facility] [id number] [address] [place] [phone] May, RYAN (generalized anxiety dis order) F41.1 [place] [address] [address] [facility] [id number] [address] [place] [phone] May, [place] [address] [address] [facility] [id number] [address] [place] [phone] May, RYAN (generalized anxiety dis order) F41.1 and Hospital discharge follow-up Z09 IMMUNIZATIONS No Known Immunizations SOCIAL HISTORY Never Assessed REASON FOR VISIT controlled med refill PLAN OF CARE VITAL SIGNS MEDICATIONS Medication Instructions Dosage Frequency Start Date End Date Duration S tatus Klonopin 2 MG Orally twice a day 1 tablet 12h 11 May, 2018 2 8 days Active RESULTS No Results PROCEDURES No Known procedures INSTRUCTIONS MEDICATIONS ADMINISTERED No Known Medications MEDICAL (GENERAL) HISTORY Type Description Date Medical History broken neck Medical History broken both collar bone Medical History hernia surgery Surgical History hernia surgery 01/11/2018 Hospitalization History depression 06/01/2018
--- OUTSIDE RECORDS SUMMARY | 2019-09-23 19:39 | XMS REPORT ---
Author Author Ruiz ZULUAGA Organization [facility] Address [address] [place] [address] Care Team Providers Care Medical Assistant Prn Name Role Phone DONALD ZULUAGA Unavailable PROBLEMS Type Condition ICD9-CM Code [id number] Code Onset Dates Condition S tatus SNOMED Code Problem RYAN (generalized anxiety disorder) F41.1 Active [id number] ALLERGIES No Information ENCOUNTERS Encounter Location Date Diagnosis [facility] [address] [place] [id number] [place] [phone] May, [facility] [address] [place] [id number] [place] [phone] May, [facility] [address] [place] [id number] [place] [phone] May, RYAN (generalized anxiety dis order) F41.1 and Hospital discharge follow-up Z09 IMMUNIZATIONS No Known Immunizations SOCIAL HISTORY Never Assessed REASON FOR VISIT medication refill PLAN OF CARE VITAL SIGNS MEDICATIONS Medication Instructions Dosage Frequency Start Date End Date Duration S tatus Meloxicam 7.5 mg Orally Once a day 1 tablet 24h 12 May, 2018 Jul, 30 day(s) Active RESULTS No Results PROCEDURES No Known procedures INSTRUCTIONS MEDICATIONS ADMINISTERED No Known Medications MEDICAL (GENERAL) HISTORY Type Description Date Medical History broken neck Medical History broken both collar bone Medical History hernia surgery Surgical History hernia surgery 01/11/2018 Hospitalization History depression 06/01/2018
--- OUTSIDE RECORDS SUMMARY | 2019-09-23 19:39 | XMS REPORT | Continuity of Care Document ---
Author Organization Unknown Address Unknown Phone Unavailable Allergies Active Description Code Type Severity Reaction Onset Reported/Identified Relationship to Patient Clinical Status Yes No Allergy Information Available [id number] Drug Allergy Unknown N/A 018 Medications There is no data. Problems Date Dx Coded Attending Type Code Diagnosis Diagnosed By 05/25/2018 CAIO GONZALEZ MD Ot E87 .6 HYPOKALEMIA 05/25/2018 CAIO GONZALEZ MD Ot F10.220 ALCOHOL DEPENDENCE WITH INTOXICATION, UN 05/25/2018 CAIO GONZALEZ MD Ot F10.239 ALCOHOL DEPENDENCE WITH WITHDRAWAL, UNSP 05/25/2018 CAIO GONZALEZ MD Ot F32 .9 MAJOR DEPRESSIVE DISORDER, SINGLE EPISOD 05/25/2018 CAIO GONZALEZ MD Ot R45.851 SUICIDAL IDEATIONS 05/25/2018 CAIO GONZALEZ MD Ot Z87.891 PERSONAL HISTORY OF NICOTINE DEPENDENCE 05/25/2018 CAIO GONZALEZ MD Ot E87 .6 HYPOKALEMIA 05/25/2018 CAIO GONZALEZ MD Ot F10.220 ALCOHOL DEPENDENCE WITH INTOXICATION, UN 05/25/2018 CAIO GONZALEZ MD Ot F10.239 ALCOHOL DEPENDENCE WITH WITHDRAWAL, UNSP 05/25/2018 CAIO GONZALEZ MD Ot F32 .9 MAJOR DEPRESSIVE DISORDER, SINGLE EPISOD 05/25/2018 CAIO GONZALEZ MD Ot R45.851 SUICIDAL IDEATIONS 05/25/2018 CAIO GONZALEZ MD Ot Z87.891 PERSONAL HISTORY OF NICOTINE DEPENDENCE 06/02/2018 MARCO ANTONIO STEELE MD Ot E51. 2 WERNICKE'S ENCEPHALOPATHY 06/02/2018 MARCO ANTONIO STEELE MD Ot F10.231 ALCOHOL DEPENDENCE WITH WITHDRAWAL DELIR 06/02/2018 MARCO ANTONIO STEELE MD Ot F12. 90 CANNABIS USE, UNSPECIFIED, UNCOMPLICATED 06/02/2018 MARCO ANTONIO STEELE MD Ot F32. 9 MAJOR DEPRESSIVE DISORDER, SINGLE EPISOD 06/02/2018 MARCO ANTONIO STEELE MD Ot F41. 9 ANXIETY DISORDER, UNSPECIFIED 06/02/2018 MARCO ANTONIO STEELE MD Ot K72. 90 HEPATIC FAILURE, UNSPECIFIED WITHOUT COM 06/02/2018 MARCO ANTONIO STEELE MD Ot R44. 0 AUDITORY HALLUCINATIONS 06/02/2018 MARCO ANTONIO STEELE MD Ot S19.9XXA UNSPECIFIED INJURY OF NECK, INITIAL ENCO 06/02/2018 MARCO ANTONIO STEELE MD Ot W06.XXXA FALL FROM BED, INITIAL ENCOUNTER 06/02/2018 MARCO ANTONIO STELEE MD Ot Y92.003 [facility]OM OF [facility] NON-INSTITUT (PRIVATE) R 06/02/2018 MARCO ANTONIO STEELE MD, Ot Z87.891 PERSONAL HISTORY OF NICOTINE DEPENDENCE 06/02/2018 MARCO ANTONIO STEELE MD Ot Z91. 5 PERSONAL HISTORY OF SELF-HARM 06/14/2018 MARCO ANTONIO STEELE MD Ot E51. 2 WERNICKE'S ENCEPHALOPATHY 06/26/2018 MARCO ANTONIO STEELE MD Ot E51. 2 WERNICKE'S ENCEPHALOPATHY 09/16/2018 MARCO ANTONIO STEELE MD Ot E51. 2 WERNICKE'S ENCEPHALOPATHY 08/29/2019 MARCO ANTONIO STEELE MD, Ot E51. 2 WERNICKE'S ENCEPHALOPATHY 09/04/2019 INNA ANNE APRN Ot F32 .9 MAJOR DEPRESSIVE DISORDER, SINGLE EPISOD 09/04/2019 INNA ANNE APRN Ot F41 .9 ANXIETY DISORDER, UNSPECIFIED 09/04/2019 INNA ANNE APRN Ot M79.644 PAIN IN RIGHT FINGER(S) 09/04/2019 INNA ANNE APRN Ot S61.111A LACERATION W/O FB OF RIGHT THUMB W DAMAG 09/04/2019 INNA ANNE APRN Ot W23.1XXA CAUGHT, CRUSH, JAMMED, OR PINCHED BETW S 09/04/2019 INNA ANNE APRN Ot Z79.82 [facility] (CURRENT) USE OF ASPIRIN 09/04/2019 INNA ANNE APRN Ot Z82.49 FAMILY HX OF ISCHEM HEART DIS AND OTH DI 09/04/2019 INNA ANNE APRN Ot Z87.891 PERSONAL HISTORY OF NICOTINE DEPENDENCE Procedures There is no data. Results Test Result Range Complete urinalysis with reflex to cultu re - 05/24/18 20:30 Urine color determination YELLOW NRG Urine clarity determination CLEAR NR G Urine pH measurement by test strip 6 5-9 Specific gravity of urine by test strip 1.015 1.016-1.022 Urine protein assay by test strip, semi-quantitative 2+ NEGATIVE Urine glucose detection by automated test strip NE GATIVE NEGATIVE Erythrocytes detection in urine sediment by light micr oscopy 3+ NEGATIVE Urine ketones detection by automated test strip 1+ NEGATIVE Urine nitrite detection by test strip NEGATIVE NEGATIVE Urine total bilirubin detection by test strip NEGA TIVE NEGATIVE Urine urobilinogen measurement by automated test strip (mass/volume) NORMAL NORMAL Urine leukocyte esterase detection by dipstick NEG ATIVE NEGATIVE Automated urine sediment erythrocyte cou nt by microscopy (number/high power field) [HPF] NRG Automated urine sediment leukocyte count by microscopy (number/high power field) [HPF] NRG Bacteria detection in urine sediment by light microsco py NEGATIVE NRG Crystals detection in urine sediment by light microsco py NONE NRG Casts detection in urine sediment by light microscopy NONE NRG Mucus detection in urine sediment by light microscopy NEGATIVE NRG Complete urinalysis with reflex to culture NO NRG Urine drug screening test - 05/24/18 20: 30 Urine phencyclidine detection by screening method NEGATIVE NEGATIVE Urine benzodiazepines detection by screening method NEGATIVE NEGATIVE Urine cocaine detection NEGATIVE NEGATI VE Urine amphetamines detection by screening method N EGATIVE NEGATIVE Urine methamphetamine detection by screening method NEGATIVE NEGATIVE Urine cannabinoids detection by screening method N EGATIVE NEGATIVE Urine opiates detection by screening method NEGATI VE NEGATIVE Urine barbiturates detection NEGATIVE N EGATIVE Screening urine tricyclic antidepressants detection NEGATIVE NEGATIVE Urine methadone detection by screening method NEGA TIVE NEGATIVE Urine oxycodone detection NEGATIVE NEGA TIVE Urine propoxyphene detection NEGATIVE N EGATIVE Complete blood count (CBC) with automate d white blood cell (WBC) differential - 05/24/18 20:50 Blood leukocytes automated count (number/volume) 12.8 10*3/uL 4.3-11.0 Blood erythrocytes automated count (number/volume) 5.33 10*6/uL 4.35-5.85 Venous blood hemoglobin measurement (mass/volume) 16.7 g/dL 13.3-17.7 Blood hematocrit (volume fraction) 46 % 40-54 Automated erythrocyte mean corpuscular volume 86 [ foz_us] 80-99 Automated erythrocyte mean corpuscular h emoglobin (mass per erythrocyte) 31 pg 25-34 Automated erythrocyte mean corpuscular h emoglobin concentration measurement (mass/volume) 36 g/dL 32-36 Automated erythrocyte distribution width ratio 14. 3 % 10.0- 14.5 Automated blood platelet count (count/volume) 180 10*3/uL 130-400 Automated blood platelet mean volume measurement 9.6 [foz_us] 7.4-10.4 Automated blood neutrophils/100 leukocytes 66 % 42-75 Automated blood lymphocytes/100 leukocytes 28 % 12-44 Blood monocytes/100 leukocytes 6 % 0-12 Automated blood eosinophils/100 leukocytes 0 % 0-10 Automated blood basophils/100 leukocytes 0 % 0-10 Blood neutrophils automated count (number/volume) 8.4 10*3 1.8-7.8 Blood lymphocytes automated count (number/volume) 3.5 10*3 1.0-4.0 Blood monocytes automated count (number/volume) 0. 8 10*3 0.0-1.0 Automated eosinophil count 0.0 10*3/uL 0 .0-0.3 Automated blood basophil count (count/volume) 0.0 10*3/uL 0.0-0.1 Comprehensive metabolic panel - 05/24/18 20:50 Serum or plasma sodium measurement (moles/volume) 141 mmol/L 135-145 Serum or plasma potassium measurement (moles/volume) 3.8 mmol/L 3.6-5.0 Serum or plasma chloride measurement (moles/volume) 97 mmol/L 98-107 Carbon dioxide 24 mmol/L 21-32 Serum or plasma anion gap determination (moles/volume) 20 mmol/L 5-14 Serum or plasma urea nitrogen measurement (mass/volume ) 14 mg/dL 7-18 Serum or plasma creatinine measurement (mass/volume) 0.83 mg/dL 0.60-1.30 Serum or plasma urea nitrogen/creatinine mass ratio 17 NRG Serum or plasma creatinine measurement w ith calculation of estimated glomerular filtration rate > NRG Serum or plasma glucose measurement (mass/volume) 139 mg/dL 70-105 Serum or plasma calcium measurement (mass/volume) 9.0 mg/dL 8.5-10.1 Serum or plasma total bilirubin measurement (mass/volu me) 0.5 mg/dL 0.1-1.0 Serum or plasma alkaline phosphatase toyin surement (enzymatic activity/volume) 103 U/L 40-136 Serum or plasma aspartate aminotransfera se measurement (enzymatic activity/volume) 105 U/L 5-34 Serum or plasma alanine aminotransferase measurement (enzymatic activity/volume) 115 U/L 0-55 Serum or plasma protein measurement (mass/volume) 7.4 g/dL 6.4-8.2 Serum or plasma albumin measurement (mass/volume) 4.4 g/dL 3.2-4.5 CALCIUM CORRECTED 8.7 mg/dL 8.5-10.1 Serum or plasma thyrotropin measurement by detection limit <=0.05 miu/l (units/volume) - 05/24/18 20:50 Serum or plasma thyrotropin measurement by detection limit <=0.05 miu/l (units/volume) 0.64 u[iU]/mL 0.35-4.94 Serum or plasma salicylates measurement (mass/volume) - 05/24/18 20:50 Serum or plasma salicylates measurement (mass/volume) < mg/dL 5.0-20.0 Serum or plasma acetaminophen measuremen t (mass/volume) - 05/24/18 20:50 Serum or plasma acetaminophen measurement (mass/volume ) < ug/mL 10-30 Serum or plasma ethanol measurement (mas s/volume) - 05/24/18 20:50 Serum or plasma ethanol measurement (mass/volume) 374 mg/dL <10 Methicillin resistant Staphylococcus aur eus (MRSA) screening culture - 05/25/18 05:49 Methicillin resistant Staphylococcus aureus (MRSA) scr eening culture NEG NRG Complete blood count (CBC) with automate d white blood cell (WBC) differential - 05/31/18 12:19 Blood leukocytes automated count (number/volume) 6.3 10*3/uL 4.3-11.0 Blood erythrocytes automated count (number/volume) 3.96 10*6/uL 4.35-5.85 Venous blood hemoglobin measurement (mass/volume) 12.5 g/dL 13.3-17.7 Blood hematocrit (volume fraction) 36 % 40-54 Automated erythrocyte mean corpuscular volume 92 [ foz_us] 80-99 Automated erythrocyte mean corpuscular h emoglobin (mass per erythrocyte) 32 pg 25-34 Automated erythrocyte mean corpuscular h emoglobin concentration measurement (mass/volume) 34 g/dL 32-36 Automated erythrocyte distribution width ratio 15. 1 % 10.0- 14.5 Automated blood platelet count (count/volume) 207 10*3/uL 130-400 Automated blood platelet mean volume measurement 8.6 [foz_us] 7.4-10.4 Automated blood neutrophils/100 leukocytes 62 % 42-75 Automated blood lymphocytes/100 leukocytes 20 % 12-44 Blood monocytes/100 leukocytes 16 % 0-12 Automated blood eosinophils/100 leukocytes 1 % 0-10 Automated blood basophils/100 leukocytes 1 % 0-10 Blood neutrophils automated count (number/volume) 3.9 10*3 1.8-7.8 Blood lymphocytes automated count (number/volume) 1.3 10*3 1.0-4.0 Blood monocytes automated count (number/volume) 1. 0 10*3 0.0-1.0 Automated eosinophil count 0.1 10*3/uL 0 .0-0.3 Automated blood basophil count (count/volume) 0.1 10*3/uL 0.0-0.1 Comprehensive metabolic panel - 05/31/18 12:19 Serum or plasma sodium measurement (moles/volume) 139 mmol/L 135-145 Serum or plasma potassium measurement (moles/volume) 3.5 mmol/L 3.6-5.0 Serum or plasma chloride measurement (moles/volume) 103 mmol/L 98-107 Carbon dioxide 26 mmol/L 21-32 Serum or plasma anion gap determination (moles/volume) 10 mmol/L 5-14 Serum or plasma urea nitrogen measurement (mass/volume ) 14 mg/dL 7-18 Serum or plasma creatinine measurement (mass/volume) 0.84 mg/dL 0.60-1.30 Serum or plasma urea nitrogen/creatinine mass ratio 17 NRG Serum or plasma creatinine measurement w ith calculation of estimated glomerular filtration rate > NRG Serum or plasma glucose measurement (mass/volume) 154 mg/dL 70-105 Serum or plasma calcium measurement (mass/volume) 9.3 mg/dL 8.5-10.1 Serum or plasma total bilirubin measurement (mass/volu me) 0.6 mg/dL 0.1-1.0 Serum or plasma alkaline phosphatase toyin surement (enzymatic activity/volume) 104 U/L 40-136 Serum or plasma aspartate aminotransfera se measurement (enzymatic activity/volume) 53 U/L 5-34 Serum or plasma alanine aminotransferase measurement (enzymatic activity/volume) 89 U/L 0-55 Serum or plasma protein measurement (mass/volume) 6.3 g/dL 6.4-8.2 Serum or plasma albumin measurement (mass/volume) 3.8 g/dL 3.2-4.5 CALCIUM CORRECTED 9.5 mg/dL 8.5-10.1 Magnesium - 05/31/18 12:19 Magnesium 2.3 mg/dL 1.8-2.4 THYROID STIMULATING HORMONE - 05/31/18 1 2:19 THYROID STIMULATING HORMONE 0.91 u[iU]/mL 0.35-4.94 Serum or plasma ethanol measurement (mas s/volume) - 05/31/18 12:19 Serum or plasma ethanol measurement (mass/volume) < mg/dL <10 Serum or plasma salicylates measurement (mass/volume) - 05/31/18 12:19 Serum or plasma salicylates measurement (mass/volume) < mg/dL 5.0-20.0 Serum or plasma acetaminophen measuremen t (mass/volume) - 05/31/18 12:19 Serum or plasma acetaminophen measurement (mass/volume ) < ug/mL 10-30 Ammonia - 05/31/18 14:18 Ammonia 45 umol/L 11-32 Complete urinalysis with reflex to cultu re - 05/31/18 14:35 Urine color determination YELLOW NRG Urine clarity determination CLEAR NR G Urine pH measurement by test strip 5 5-9 Specific gravity of urine by test strip 1.025 1.016-1.022 Urine protein assay by test strip, semi-quantitative 2+ NEGATIVE Urine glucose detection by automated test strip NE GATIVE NEGATIVE Erythrocytes detection in urine sediment by light micr oscopy NEGATIVE NEGATIVE Urine ketones detection by automated test strip 2+ NEGATIVE Urine nitrite detection by test strip NEGATIVE NEGATIVE Urine total bilirubin detection by test strip NEGA TIVE NEGATIVE Urine urobilinogen measurement by automated test strip (mass/volume) NORMAL NORMAL Urine leukocyte esterase detection by dipstick 1+ NEGATIVE Automated urine sediment erythrocyte cou nt by microscopy (number/high power field) RARE NRG Automated urine sediment leukocyte count by microscopy (number/high power field) [HPF] NRG Bacteria detection in urine sediment by light microsco py TRACE NRG Squamous epithelial cells detection in u rine sediment by light microscopy RARE NRG Crystals detection in urine sediment by light microsco py NONE NRG Casts detection in urine sediment by light microscopy NONE NRG Mucus detection in urine sediment by light microscopy MODERATE NRG Complete urinalysis with reflex to culture NO NRG Urine drug screening test - 05/31/18 14: 35 Urine phencyclidine detection by screening method NEGATIVE NEGATIVE Urine benzodiazepines detection by screening method NEGATIVE NEGATIVE Urine cocaine detection NEGATIVE NEGATI VE Urine amphetamines detection by screening method N EGATIVE NEGATIVE Urine methamphetamine detection by screening method NEGATIVE NEGATIVE Urine cannabinoids detection by screening method P OSITIVE NEGATIVE Urine opiates detection by screening method NEGATI VE NEGATIVE Urine barbiturates detection NEGATIVE N EGATIVE Screening urine tricyclic antidepressants detection NEGATIVE NEGATIVE Urine methadone detection by screening method NEGA TIVE NEGATIVE Urine oxycodone detection NEGATIVE NEGA TIVE Urine propoxyphene detection NEGATIVE N EGATIVE Complete blood count (CBC) with automate d white blood cell (WBC) differential - 06/01/18 05:20 Blood leukocytes automated count (number/volume) 5.4 10*3/uL 4.3-11.0 Blood erythrocytes automated count (number/volume) 3.63 10*6/uL 4.35-5.85 Venous blood hemoglobin measurement (mass/volume) 11.5 g/dL 13.3-17.7 Blood hematocrit (volume fraction) 34 % 40-54 Automated erythrocyte mean corpuscular volume 92 [ foz_us] 80-99 Automated erythrocyte mean corpuscular h emoglobin (mass per erythrocyte) 32 pg 25-34 Automated erythrocyte mean corpuscular h emoglobin concentration measurement (mass/volume) 34 g/dL 32-36 Automated erythrocyte distribution width ratio 15. 1 % 10.0- 14.5 Automated blood platelet count (count/volume) 195 10*3/uL 130-400 Automated blood platelet mean volume measurement 8.5 [foz_us] 7.4-10.4 Automated blood neutrophils/100 leukocytes 50 % 42-75 Automated blood lymphocytes/100 leukocytes 31 % 12-44 Blood monocytes/100 leukocytes 16 % 0-12 Automated blood eosinophils/100 leukocytes 3 % 0-10 Automated blood basophils/100 leukocytes 1 % 0-10 Blood neutrophils automated count (number/volume) 2.7 10*3 1.8-7.8 Blood lymphocytes automated count (number/volume) 1.6 10*3 1.0-4.0 Blood monocytes automated count (number/volume) 0. 8 10*3 0.0-1.0 Automated eosinophil count 0.2 10*3/uL 0 .0-0.3 Automated blood basophil count (count/volume) 0.0 10*3/uL 0.0-0.1 Comprehensive metabolic panel - 06/01/18 05:20 Serum or plasma sodium measurement (moles/volume) 138 mmol/L 135-145 Serum or plasma potassium measurement (moles/volume) 3.3 mmol/L 3.6-5.0 Serum or plasma chloride measurement (moles/volume) 104 mmol/L 98-107 Carbon dioxide 25 mmol/L 21-32 Serum or plasma anion gap determination (moles/volume) 9 mmol/L 5-14 Serum or plasma urea nitrogen measurement (mass/volume ) 12 mg/dL 7-18 Serum or plasma creatinine measurement (mass/volume) 0.75 mg/dL 0.60-1.30 Serum or plasma urea nitrogen/creatinine mass ratio 16 NRG Serum or plasma creatinine measurement w ith calculation of estimated glomerular filtration rate > NRG Serum or plasma glucose measurement (mass/volume) 100 mg/dL 70-105 Serum or plasma calcium measurement (mass/volume) 8.5 mg/dL 8.5-10.1 Serum or plasma total bilirubin measurement (mass/volu me) 0.5 mg/dL 0.1-1.0 Serum or plasma alkaline phosphatase toyin surement (enzymatic activity/volume) 85 U/L 40-136 Serum or plasma aspartate aminotransfera se measurement (enzymatic activity/volume) 34 U/L 5-34 Serum or plasma alanine aminotransferase measurement (enzymatic activity/volume) 68 U/L 0-55 Serum or plasma protein measurement (mass/volume) 5.2 g/dL 6.4-8.2 Serum or plasma albumin measurement (mass/volume) 3.2 g/dL 3.2-4.5 CALCIUM CORRECTED 9.1 mg/dL 8.5-10.1 Ammonia - 06/01/18 05:20 Ammonia 19 umol/L 11-32 Complete blood count (CBC) with automate d white blood cell (WBC) differential - 06/02/18 05:15 Blood leukocytes automated count (number/volume) 5.8 10*3/uL 4.3-11.0 Blood erythrocytes automated count (number/volume) 3.89 10*6/uL 4.35-5.85 Venous blood hemoglobin measurement (mass/volume) 12.3 g/dL 13.3-17.7 Blood hematocrit (volume fraction) 36 % 40-54 Automated erythrocyte mean corpuscular volume 93 [ foz_us] 80-99 Automated erythrocyte mean corpuscular h emoglobin (mass per erythrocyte) 32 pg 25-34 Automated erythrocyte mean corpuscular h emoglobin concentration measurement (mass/volume) 34 g/dL 32-36 Automated erythrocyte distribution width ratio 15. 4 % 10.0- 14.5 Automated blood platelet count (count/volume) 250 10*3/uL 130-400 Automated blood platelet mean volume measurement 8.9 [foz_us] 7.4-10.4 Automated blood neutrophils/100 leukocytes 48 % 42-75 Automated blood lymphocytes/100 leukocytes 32 % 12-44 Blood monocytes/100 leukocytes 15 % 0-12 Automated blood eosinophils/100 leukocytes 3 % 0-10 Automated blood basophils/100 leukocytes 1 % 0-10 Blood neutrophils automated count (number/volume) 2.8 10*3 1.8-7.8 Blood lymphocytes automated count (number/volume) 1.9 10*3 1.0-4.0 Blood monocytes automated count (number/volume) 0. 9 10*3 0.0-1.0 Automated eosinophil count 0.2 10*3/uL 0 .0-0.3 Automated blood basophil count (count/volume) 0.1 10*3/uL 0.0-0.1 Whole blood basic metabolic panel - 03/14 05:15 Serum or plasma sodium measurement (moles/volume) 137 mmol/L 135-145 Serum or plasma potassium measurement (moles/volume) 3.4 mmol/L 3.6-5.0 Serum or plasma chloride measurement (moles/volume) 106 mmol/L 98-107 Carbon dioxide 25 mmol/L 21-32 Serum or plasma anion gap determination (moles/volume) 6 mmol/L 5-14 Serum or plasma urea nitrogen measurement (mass/volume ) 8 mg/dL 7-18 Serum or plasma creatinine measurement (mass/volume) 0.75 mg/dL 0.60-1.30 Serum or plasma urea nitrogen/creatinine mass ratio 11 NRG Serum or plasma creatinine measurement w ith calculation of estimated glomerular filtration rate > NRG Serum or plasma glucose measurement (mass/volume) 103 mg/dL 70-105 Serum or plasma calcium measurement (mass/volume) 8.4 mg/dL 8.5-10.1 Encounters ACCT No. Visit Date/Time Discharge Status Pt. Type Provider Facility Loc./Unit Complaint [id number] 08/29/2019 12:55:00 019 14:10:00 DIS Outpatient INNA ANNE APRN [facility] ER R THUMB LAC [id number] 06/27/2018 01:10:00 018 23:59:59 CLS Preadmit MARCO ANTONIO STEELE MD [facility] [id number] 06/07/2018 08:35:00 018 00:01:00 DIS Outpatient MARCO ANTONIO STEELE MD [facility] [id number] 05/31/2018 15:19:00 018 11:41:00 DIS Inpatient MARCO ANTONIO STEELE MD [facility] 4TH WENICKE'S ENCEPHALOPATH Y;HEPATIC ENCEPHALOPATHY;- [id number] 05/24/2018 23:55:00 018 10:34:00 DIS Inpatient CAIO GONZALEZ MD [facility] ICU SUICIDAL IDEATION;ALCOH OL INTOXICATION
--- OUTSIDE RECORDS SUMMARY | 2019-09-23 19:39 | XMS REPORT ---
Author Author Ruiz ZULUAGA Organization [facility] Address [address] [place] [address] Care Team Providers Care Gate Agent Name Role Phone DONALD ZULUAGA Unavailable PROBLEMS Type Condition ICD9-CM Code [id number] Code Onset Dates Condition S tatus SNOMED Code Problem Erectile dysfunction, unspecified erectile dysfunction typ e N52.9 Active 687579697 Problem Grieving F43.21 Active [id number] Problem RYAN (generalized anxiety disorder) F41.1 Active [id number] ALLERGIES No Information ENCOUNTERS Encounter Location Date Diagnosis [place] [id number] [id number] Jun, RYAN (generalized anxiety dis order) F41.1 [facility] [address] [address] 03 Jun, 2018 Grieving F43.21 and Erectile dysfunction, unspecified erectile dysfunction type N52.9 [facility] [address] [place] [id number] [place] [id number] May, RYAN (generalized anxiety dis order) F41.1 [place] [id number] [place] [id number] [place] [phone] May, [facility] [address] [address] May, RYAN (generalized anxiety dis order) F41.1 and Hospital discharge follow-up Z09 IMMUNIZATIONS No Known Immunizations SOCIAL HISTORY Never Assessed REASON FOR VISIT Medication Refill Request PLAN OF CARE VITAL SIGNS MEDICATIONS Medication [...]
--- OUTSIDE RECORDS SUMMARY | 2019-09-23 19:39 | XMS REPORT ---
Author Author Ruiz ZULUAGA Organization [facility] Address [address] [place] [address] Care Team Providers Care Label Sewer Name Role Phone DONALD ZULUAGA Unavailable PROBLEMS Type Condition ICD9-CM Code ESS09-ZT Code Onset Dates Condition S tatus SNOMED Code Problem RYAN (generalized anxiety disorder) F41.1 Active [id number] ALLERGIES No Known Allergies ENCOUNTERS Encounter Location Date Diagnosis [facility] [address] [phone] May, [facility] [address] [place] [id number] [place] [phone] May, [facility] [address] [place] [id number] [place] [phone] May, RYAN (generalized anxiety dis order) F41.1 and Hospital discharge follow-up Z09 IMMUNIZATIONS No Known Immunizations SOCIAL HISTORY Never Assessed REASON FOR VISIT [facility] follow up-OSWALDO watts PLAN OF CARE Activity Details Follow Up 6 Months Reason: Pending Test - PANEL (PROFILE 1) VITAL SIGNS Weight 186.0 lbs 2018-06-07 Temperature 97.9 degrees Fahrenheit 2018-06-07 Heart Rate 76 bpm 2018-06-07 Respiratory Rate 18 2018-06-07 Oximetry on room air:95 % 2018-06-07 Blood pressure systolic 110 mmHg 2018-06-07 Blood pressure diastolic 74 mmHg 2018-06-07 MEDICATIONS Medication Instructions Dosage Frequency Start Date End Date Duration S tatus Klonopin 2 MG Orally twice a day 1 tablet 12h 11 May, 2018 1 4 days Active RESULTS No Results PROCEDURES Procedure Date Ordered Result Body Site 09 PANEL (PROFILE 1) Jun 07, 2018 INSTRUCTIONS MEDICATIONS ADMINISTERED No Known Medications MEDICAL (GENERAL) HISTORY Type Description Date Medical History broken neck Medical History broken both collar bone Medical History hernia surgery Surgical History hernia surgery 01/11/2018 Hospitalization History depression 06/01/2018
--- OUTSIDE RECORDS SUMMARY | 2019-09-23 19:39 | XMS REPORT ---
Author Author Ruiz ZULUAGA Organization [facility] Address [address] [place] [address] Care Team Providers Care Equipment Coordinator Name Role Phone DONALD ZULUAGA Unavailable PROBLEMS Type Condition ICD9-CM Code [id number] Code Onset Dates Condition S tatus SNOMED Code Problem Erectile dysfunction, unspecified erectile dysfunction typ e N52.9 Active 252576355 Problem Grieving F43.21 Active 455641476 Problem RYAN (generalized anxiety disorder) F41.1 Active 57619005 ALLERGIES No Information ENCOUNTERS Encounter Location Date Diagnosis [facility] [address] [address] 03 Jun, 2018 Grieving F43.21 and Erectile dysfunction, unspecified erectile dysfunction type N52.9 [facility] [address] [place] [id number] [address] [place] [id number] 28 May, 2018 RYAN (generalized anxiety dis order) F41.1 [facility] [address] [id number] [address] [place] [id number] 12 May, 2018 [facility] [address] [id number] [address] [place] [phone] May, RYAN (generalized anxiety dis order) F41.1 and Hospital discharge follow-up Z09 IMMUNIZATIONS No Known Immunizations SOCIAL HISTORY Never Assessed REASON FOR VISIT Medication refill request PLAN OF CARE VITAL SIGNS MEDICATIONS Medication Instructions Dosage Frequency Start Date End Date Duration S tatus Klonopin 2 MG Orally twice a day 1 tablet 12h May, 1 4 days Active RESULTS No Results PROCEDURES No Known procedures INSTRUCTIONS MEDICATIONS ADMINISTERED No Known Medications MEDICAL (GENERAL) HISTORY Type Description Date Medical History broken neck Medical History broken both collar bone Medical History hernia surgery Surgical History hernia surgery 01/11/2018 Hospitalization History depression 06/01/2018
--- OUTSIDE RECORDS SUMMARY | 2019-09-23 19:39 | XMS REPORT ---
Author Author Ruiz ZULUAGA Organization [facility] [place] Address [address] [place] [address] Care Team Providers Care Organ Installer Name Role Phone DONALD ZULUAGA Unavailable PROBLEMS Type Condition ICD9-CM Code [id number] Code Onset Dates Condition S tatus SNOMED Code Problem Erectile dysfunction, unspecified erectile dysfunction typ e N52.9 Active 471004773 Problem Grieving F43.21 Active 329739188 Problem RYAN (generalized anxiety disorder) F41.1 Active [id number] ALLERGIES No Known Allergies ENCOUNTERS Encounter Location Date Diagnosis [facility] [place] [address] [phone] Jun, Grieving F43.21 and Erectile dysfunction, unspecified erectile dysfunction type N52.9 [facility] [place] [address] [phone] 28 May, 2018 RYAN (generalized anxiety dis order) F41.1 [facility] [place] [id number] [place] [phone] May, [facility] [place] [address] [phone] May, RYAN (generalized anxiety dis order) F41.1 and Hospital discharge follow-up Z09 IMMUNIZATIONS No Known Immunizations SOCIAL HISTORY Never Assessed REASON FOR VISIT personal-would not disclose-OSWALDO watts, mother , patient states that he is having a hard time focusing and concentration want to know if he can get on adde rall. and want to discuss about getting on viagra PLAN OF CARE Activity Details Follow Up prn Reason: VITAL SIGNS Height 72 in 2018-06-29 Weight 185.2 lbs 2018-06-29 Temperature 97.5 degrees Fahrenheit 2018-06-29 Heart Rate 88 bpm 2018-06-29 Respiratory Rate 18 2018-06-29 Oximetry on room air:97 % 2018-06-29 BMI 25.11 kg/m2 2018-06-29 Blood pressure systolic 110 mmHg 2018-06-29 Blood pressure diastolic 80 mmHg 2018-06-29 MEDICATIONS Medication Instructions Dosage Frequency Start Date End Date Duration S tat Klonopin 2 MG Orally twice a day 1 tablet 12h May, 1 4 days Active Sildenafil Citrate 100 mg Orally as directed /2-1 tab 0.5- 1hr before sexual activity Jun, Dec, 30 days Active RESULTS No Results PROCEDURES No Known procedures INSTRUCTIONS MEDICATIONS ADMINISTERED No Known Medications MEDICAL (GENERAL) HISTORY Type Description Date Medical History broken neck Medical History broken both collar bone Medical History hernia surgery Surgical History hernia surgery 01/11/2018 Hospitalization History depression 06/01/2018
== END 2019-08-29 14:10 | disposition home or self-care (01) ==
LOC: EDUNIT# 12:53 → ER 12:55
DX: S61.111A Laceration without foreign body of right thumb with damage to nail, initial encounter (principal); F41.9 Anxiety disorder, unspecified; F32.9 Major depressive disorder, single episode, unspecified; Z79.82 Long term (current) use of aspirin; Z87.891 Personal history of nicotine dependence; Z82.49 Family history of ischemic heart disease and other diseases of the circulatory system; W23.1XXA Caught, crushed, jammed, or pinched between stationary objects, initial encounter
CPT/HCPCS: 99283

== ENCOUNTER 2020-06-13 07:36 | Observation (INO) | payer SELFPAY ==
[~2020-06-13] VITALS: Ht 182.9 cm; Wt 82.3 kg
[~2020-06-13 07:36] MED LIST changes: +ASPI-1238 PO; -ASPI-983 PO; +CEPH500T PO; +HYDR-34 PO
[2020-06-13] MEDS ORDERED: LACTATED RINGERS 1,000 ML IV ONE (08:47)
[2020-06-13] MEDS ORDERED: ONDANSETRON 4 MG/2 ML (SDV) Z0FRAN IVP ONE (09:00)
[2020-06-13 09:08] LABS: BASOPHILS % (AUTO) 0 % (0-10); EOSINOPHILS % (AUTO) 0 % (0-10); HEMATOCRIT 48 % (40-54); HEMOGLOBIN 17.4 G/DL (13.3-17.7); LYMPHOCYTES # (AUTO) 2.7 X 10^3 (1.0-4.0); LYMPHOCYTES % (AUTO) 11 % (12-44); MEAN CORPUSCULAR HEMOGLOBIN 29 PG (25-34); MEAN CORPUSCULAR HGB CONC 36 G/DL (32-36); MEAN CORPUSCULAR VOLUME 82 FL (80-99); MEAN PLATELET VOLUME 9.6 FL (7.4-10.4); MONOCYTES # (AUTO) 1.4 X 10^3 (0.0-1.0); MONOCYTES % (AUTO) 6 % (0-12); NEUTROPHILS # (AUTO) 19.9 X 10^3 (1.8-7.8); NEUTROPHILS % (AUTO) 83 % (42-75); PLATELET COUNT 259 10^3/uL (130-400)
[2020-06-13 09:12] LABS: BILIRUBIN,URINE NEGATIVE (NEGATIVE); CLARITY,URINE CLEAR; COLOR,URINE YELLOW; GLUCOSE, URINE (UA) 1+ (NEGATIVE); KETONES,URINE NEGATIVE (NEGATIVE); LEUKOCYTE ESTERASE ,URINE NEGATIVE (NEGATIVE); NITRITE,URINE NEGATIVE (NEGATIVE); PROTEIN,URINE 2+ (NEGATIVE)
[2020-06-13 09:25] LABS: BACTERIA,URINE NEGATIVE /HPF; HYALINE CASTS, URINE 0-2 /LPF; SQUAMOUS EPITHELIAL CELL,UR 0-2 /HPF; WBC,URINE 0-2 /HPF
[2020-06-13 09:29] LABS: ALANINE AMINOTRANSFERASE 127 U/L (0-55); ALBUMIN 3.7 GM/DL (3.2-4.5); ALKALINE PHOSPHATASE 84 U/L (40-136); AMMONIA 41 UMOL/L (11-32); AMYLASE 72 U/L (25-125); BUN/CREATININE RATIO 45; CALCIUM 7.8 MG/DL (8.5-10.1); CARBON DIOXIDE 19 MMOL/L (21-32); CHLORIDE 91 MMOL/L (98-107); CREATININE SERUM 0.84 MG/DL (0.60-1.30); GFR ESTIMATED > 60; GLUCOSE 189 MG/DL (70-105); LIPASE 23 U/L (8-78); MAGNESIUM 2.3 MG/DL (1.6-2.4); POTASSIUM 3.1 MMOL/L (3.6-5.0); SALICYLATE < 5.0 MG/DL (5.0-20.0); SODIUM 134 MMOL/L (135-145); TOTAL PROTEIN 6.4 GM/DL (6.4-8.2)
[2020-06-13] MEDS ORDERED: LORazepam INJ 2 MG/ML (ATIVAN) VIAL IVP ONE (09:30)
[2020-06-13 09:34] LABS: INR 1.1 (0.8-1.4); PROTHROMBIN TIME PATIENT 14.7 SEC (12.2-14.7)
[2020-06-13 09:35] LABS: ACETAMINOPHEN < 10 UG/ML (10-30); BAND NEUTROPHILS 2 %; HYPERSEGMENTED NEUT SLIGHT; LYMPHOCYTES % (MANUAL) 12 %; MONOCYTES % (MANUAL) 5 %; NEUTROPHILS % (MANUAL) 81 %; RBC MORPH NORMAL
[2020-06-13 09:44] LABS: AMPHETAMINE SCREEN, URINE NEGATIVE (NEGATIVE); BARBITURATE SCREEN URINE NEGATIVE (NEGATIVE); BENZODIAZEPINES SCREEN URINE NEGATIVE (NEGATIVE); CANNABINOID SCREEN, URINE NEGATIVE (NEGATIVE); COCAINE SCREEN URINE NEGATIVE (NEGATIVE); METHADONE STAT NEGATIVE (NEGATIVE); METHAMPHETAMINE SCREEN URINE S NEGATIVE (NEGATIVE); OPIATE SCREEN URINE NEGATIVE (NEGATIVE); OXYCODONE STAT NEGATIVE (NEGATIVE); PROPOXYPHENE STAT NEGATIVE (NEGATIVE); TRICYCLIC ANTIDEPRESSANTS SCRE NEGATIVE (NEGATIVE)
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
--- NOTE | 2020-06-13 10:09 | NUR ---
CALLED FOR ROOM DR DRAKE HERE TO SEE PATIENT.
[2020-06-13] MEDS ORDERED: 1/2 NS IV SOLUTION 1,000 ML IV PRN (10:14)
[2020-06-13] MEDS ORDERED: THIAMINE INJECTION 100 MG, FOLIC ACID INJECTION 1 MG, MAGNESIUM SULFATE 2 GM, VITAMIN M... IV SCH ×5 (10:14)
[2020-06-13] MEDS ORDERED: D5 1/2 NS 1000 ML IV SOLUTION 1,000 ML IV PRN (10:15)
[2020-06-13] MEDS ORDERED: LORazepam INJ 2 MG/ML (ATIVAN) VIAL IM/IV PRN (10:15)
[2020-06-13] MEDS ORDERED: ANTACID SUSP 30 ML UDC (MYLANTA) PO PRN (10:15)
[2020-06-13] MEDS ORDERED: SENNA W/DOCUSATE (SENOKOT S) TABLET PO PRN (10:15)
[2020-06-13] MEDS ORDERED: ONDANSETRON 4 MG (ZOFRAN) ORAL DISSOLVE TAB SL PRN (10:15)
--- NOTE | 2020-06-13 10:36 | NUR ---
NURSE TO CALL FOR REPORT
--- NOTE | 2020-06-13 10:36 | NUR ---
Nicole serna in [facility] - 06/13/20 at 1036 by PMCCLURE NURSE TO CALL REPORT
[2020-06-13] MEDS: THIAMINE INJECTION 100 MG, FOLIC ACID INJECTION 1 MG, VITAMIN MULTI INJECTION 10 ML, MA... IV SCH ×10 (10:46→10:57)
[2020-06-13] MEDS ORDERED: ENOXAPARIN 40 MG/0.4 ML (LOVENOX) SYR SC SCH (11:00)
[2020-06-13] MEDS: LORazepam 1 MG (ATIVAN) TAB PO PRN ×6 (11:21→23:37)
[2020-06-13 12:00] VITALS: BP 133/83
--- NOTE | 2020-06-13 12:38 | History & Physical ---
HPI History of Present Illness: 60 yo male came to ER due to symptoms of alcohol withdrawal. He was recently at inpatient rehab near [place] and had a relapse, states he has been drinking a pint per day for about 7 days, last drink yesterday at 9 am. He is currently very shaky and anxious and has hiccups, nausea and vomiting. He has never had seizures or delirium tremens with withdrawal. He does not want to go back to inpatient, states he just needs to get off alcohol and will stay off. Source: patient Date seen by provider: Jun 13, 2020 Time Seen by Provider: 10:00 Attending Physician Shy Haro MD [place] [place] Consult Date of Admission Jun 13, 2020 at 09:57 Home Medications Home Medications Reviewed patient Home Medication Reconciliation performed by pharmacy medication reconciliations collection technician and/or nursing. Patients Allergies have been reviewed. Allergies Coded Allergies: No Allergy Information Available (Unverified , 05/24/18) NGP-[id number]-Jpvkbk Hx Patient Social History Alcohol Use: Regular Use (HEAVY, DAILY USE) Recreational Drug Use: Yes (THC) Drug of Choice: marijuana Smoking Status: Former Smoker Type Used: Cigarettes 2nd Hand Smoke Exposure: No Recent Foreign Travel: No Contact w/other who traveled: No Recent Hopitalizations: Yes Recent Infectious Disease Expo: No Immunizations Up To Date Tetanus Booster (TDap): Less than 5yrs Past Medical History PMHx: Alcoholism SurgHx: Neck/back fracture surgery Family Medical History Significant Family History: Hypertension Review of Systems ([facility]) Constitutional: No fever EENTM: No nose congestion, No throat pain Respiratory: No cough; short of breath (reports wearing a mask is making him feel short of breath) Cardiovascular: No chest pain Gastrointestinal: No abdominal pain, No constipation, No diarrhea Genitourinary: No dysuria Musculoskeletal: No joint pain Psychiatric/Neurological: Anxiety Reviewed Test Results Reviewed Test Results Lab Laboratory Tests Test 06/13/20 08:47 06/13/20 08:53 Range/Units Urine Color YELLOW Urine Clarity CLEAR Urine pH 6.0 5-9 Urine Specific [place] 1.025 H 1.016-1.022 Urine Protein 2+ H NEGATIVE Urine Glucose (UA) 1+ H NEGATIVE Urine Ketones NEGATIVE NEGATIVE Urine Nitrite NEGATIVE NEGATIVE Urine Bilirubin NEGATIVE NEGATIVE Urine Urobilinogen 0.2 < = 1.0 MG/DL Urine Leukocyte Esterase NEGATIVE NEGATIVE Urine RBC (Auto) 3+ H NEGATIVE Urine RBC 2-5 H /HPF Urine WBC 0-2 /HPF Urine Squamous Epithelial Cells 0-2 /HPF Urine Crystals NONE /LPF Urine Bacteria NEGATIVE /HPF Urine Casts PRESENT /LPF Urine Hyaline Casts 0-2 H /LPF Urine Mucus SMALL H /LPF Urine Culture Indicated NO Urine Opiates Screen NEGATIVE NEGATIVE Urine Oxycodone Screen NEGATIVE NEGATIVE Urine Methadone Screen NEGATIVE NEGATIVE Urine Propoxyphene Screen NEGATIVE NEGATIVE Urine Barbiturates Screen NEGATIVE NEGATIVE Ur Tricyclic Antidepressants Screen NEGATIVE NEGATIVE Urine Phencyclidine Screen NEGATIVE NEGATIVE Urine Amphetamines Screen NEGATIVE NEGATIVE Urine Methamphetamines Screen NEGATIVE NEGATIVE Urine Benzodiazepines Screen NEGATIVE NEGATIVE Urine Cocaine Screen NEGATIVE NEGATIVE Urine Cannabinoids Screen NEGATIVE NEGATIVE White Blood Count 24.0 H 4.3-11.0 10^3/uL Red Blood Count 5.93 H 4.35-5.85 10^6/uL Hemoglobin 17.4 13.3-17.7 G/DL Hematocrit 48 40-54 % Mean Corpuscular Volume 82 80-99 FL Mean Corpuscular Hemoglobin 29 25-34 PG Mean Corpuscular Hemoglobin Concent 36 32-36 G/DL Red Cell Distribution Width 14.5 10.0-14.5 % Platelet Count 259 130-400 10^3/uL Mean Platelet Volume 9.6 7.4-10.4 FL Neutrophils (%) (Auto) 83 H 42-75 % Lymphocytes (%) (Auto) 11 L 12-44 % Monocytes (%) (Auto) 6 0-12 % Eosinophils (%) (Auto) 0 0-10 % Basophils (%) (Auto) 0 0-10 % Neutrophils # (Auto) 19.9 H 1.8-7.8 X 10^3 Lymphocytes # (Auto) 2.7 1.0-4.0 X 10^3 Monocytes # (Auto) 1.4 H 0.0-1.0 X 10^3 Eosinophils # (Auto) 0.0 0.0-0.3 10^3/uL Basophils # (Auto) 0.0 0.0-0.1 10^3/uL Neutrophils % (Manual) 81 % Lymphocytes % (Manual) 12 % Monocytes % (Manual) 5 % Band Neutrophils 2 % Hypersegmented Neutrophils SLIGHT Blood Morphology Comment NORMAL Prothrombin Time 14.7 12.2-14.7 SEC INR Comment 1.1 0.8-1.4 Activated Partial Thromboplast Time 26 24-35 SEC Sodium Level 134 L 135-145 MMOL/L Potassium Level 3.1 L 3.6-5.0 MMOL/L Chloride Level 91 L 98-107 MMOL/L Carbon Dioxide Level 19 L 21-32 MMOL/L Anion Gap 24 H 5-14 MMOL/L Blood Urea Nitrogen 38 H 7-18 MG/DL Creatinine 0.84 0.60-1.30 MG/DL Estimat Glomerular Filtration Rate > 60 BUN/Creatinine Ratio 45 Glucose Level 189 H 70-105 MG/DL Calcium Level 7.8 L 8.5-10.1 MG/DL Corrected Calcium 8.0 L 8.5-10.1 MG/DL Magnesium Level 2.3 1.6-2.4 MG/DL Total Bilirubin 1.0 0.1-1.0 MG/DL Aspartate Amino Transf (AST/SGOT) 111 H 5-34 U/L Alanine Aminotransferase (ALT/SGPT) 127 H 0-55 U/L Alkaline Phosphatase 84 40-136 U/L Ammonia 41 H 11-32 UMOL/L Total Protein 6.4 6.4-8.2 GM/DL Albumin 3.7 3.2-4.5 GM/DL Amylase Level 72 25-125 U/L Lipase 23 8-78 U/L Salicylates Level < 5.0 L 5.0-20.0 MG/DL Acetaminophen Level < 10 L 10-30 UG/ML Serum Alcohol 123 H <10 MG/DL Physical Exam-([facility]) Physical Exam Vital Signs VS - Last 72 Hours, by Label 06/13/20 06/13/20 08:18 11:00 Temp 36.7 Pulse 80 82 Resp 18 18 B/P (MAP) 123/89 (100) 128/90 Pulse Ox 98 98 O2 Delivery Room Air Capillary Refill : Less Than 3 Seconds General Appearance: mild distress Respiratory: lungs clear, normal breath sounds Cardiovascular: regular rate, rhythm, no murmur Gastrointestinal: normal bowel sounds, non tender, soft Extremities: no pedal edema Neurologic/Psychiatric: alert, other (oriented to self and location) Skin: warm/dry Assessment/Plan Assessment/Plan Admission Status: Observation (1) Alcohol withdrawal Status: Acute Assessment & Plan: Lorazepam per [facility] protocol. Qualifiers: Qualified Codes: F10.230 - Alcohol dependence with withdrawal, uncomplicated (2) Hyperammonemia Status: Acute Assessment & Plan: No clear indication of encephalopathy, monitor. (3) Leukocytosis Status: Acute Assessment & Plan: Unclear etiology, no sign of infection, monitor. (4) High anion gap metabolic acidosis Status: Acute Assessment & Plan: Likely secondary to alcoholic ketoacidosis. Monitor, IVF. (5) Hypokalemia Status: Acute Assessment & Plan: Replace and follow. (6) Hyponatremia Status: Acute Assessment & Plan: Secondary to combination of volume depletion and alcoholism, IVF and follow. (7) Elevated liver enzymes Status: Acute Assessment & Plan: Check hepatitis panel. (8) Hematuria Status: Acute Assessment & Plan: Unknown etiology, check CT abdomen/pelvis. Qualifiers: Qualified Codes: R31.29 - Other microscopic hematuria (9) Hypocalcemia Status: Acute (10) DVT prophylaxis Status: Acute Assessment & Plan: Enoxaparin Clinical Quality Measures DVT/VTE Risk/Contraindication: Risk Factor Score Per Nursin RFS Level Per Nursing on Admit: 4+=Very High SHY HARO MD Jun 13, 2020 12:38
[2020-06-13] MEDS ORDERED: FLU QUADRIvalent (3YOA+) 60 mcg/0.5 ml 2020-21 (AFLURIA) IM ONE (13:00)
[2020-06-13 13:25] VITALS: BP 133/83
[2020-06-13] MEDS ORDERED: MULT-1136 PO (14:46)
--- NOTE | 2020-06-13 14:47 | NUR ---
SPOKE WITH THE PT TO COMPLETE THE MED REC PT DENIES TAKING ANY PRESCRIPTION MEDS OTC MEDS: [employer] ASPIRIN 81 BIOTIN
[2020-06-13 15:34] VITALS: BP 138/84
--- NOTE | 2020-06-13 15:53 | Diagnostic Imaging Report ---
PROCEDURE: CT abdomen and pelvis without contrast. TECHNIQUE: Multiple contiguous axial images were obtained through the abdomen and pelvis without the use of intravenous contrast. Auto Exposure Controls were utilized during the CT exam to meet ALARA standards for radiation dose reduction. INDICATION: Hematuria. COMPARISON: No prior studies are available for comparison. FINDINGS: The lung bases are clear. Distal esophagus does show some circumferential wall thickening near the GE junction, indeterminate. Liver and gallbladder are unremarkable. No biliary ductal dilatation is seen. Pancreas and spleen are unremarkable. No adrenal mass is detected. No renal calculi are detected. There is no hydronephrosis. No ureteral or bladder calculi are seen. Aorta is calcified but nonaneurysmal. Small and large bowel loops are normal in caliber. Appendix is unremarkable. There is no free fluid or fluid collection identified. Prostate is unremarkable. There are fat-containing inguinal hernias bilaterally. IMPRESSION: 1. No evidence of urinary tract calculi or obstruction. 2. Small fat-containing inguinal hernias bilaterally. 3. Apparent circumferential wall thickening of the distal esophagus near the GE junction. Endoscopy would be useful for further evaluation, if clinically indicated. Dictated by: Dictated on workstation # [id number]
[2020-06-13] MEDS: NS IV 1000 ML 1,000 ML IV SCH (16:33)
[2020-06-13] MEDS: ONDANSETRON 4 MG/2 ML (SDV) Z0FRAN IV PRN ×2 (17:57→21:53)
[2020-06-13 19:51] VITALS: BP 114/71
[2020-06-13] MEDS: LORazepam INJ 2 MG/ML (ATIVAN) VIAL IV PRN (20:39)
[2020-06-13 21:21] VITALS: BP 107/71
[2020-06-13 22:20] LABS: HEPATITIS C ANTIBODY C Non-Reactive (Non-Reactive)
[2020-06-13 23:51] VITALS: BP 115/68
[2020-06-14] MEDS: LORazepam INJ 2 MG/ML (ATIVAN) VIAL IV PRN ×6 (02:27→12:46)
[2020-06-14] MEDS: ONDANSETRON 4 MG/2 ML (SDV) Z0FRAN IV PRN ×2 (02:27→07:38)
[2020-06-14] MEDS: NS IV 1000 ML 1,000 ML IV SCH ×2 (02:27→06:09)
[2020-06-14 04:19] VITALS: BP 125/62
[2020-06-14] MEDS: LORazepam 1 MG (ATIVAN) TAB PO PRN (06:16)
[2020-06-14] MEDS ORDERED: MULTIVIT W/MINERALS TAB (THERAGRAN M) PO SCH (07:00)
[2020-06-14 08:00] VITALS: BP 97/56
--- NOTE | 2020-06-14 08:43 | Progress Note ---
ALON CHAMBERS,MED STUDENT 06/14/20 0843: Subjective Subjective/Events-last exam Patient seen and examined this morning. He is feeling better than yesterday. He states that he is still having nausea and vomiting and has not been able to hold much food down. Review of Systems General: No Chills, No Fatigue HEENT: No Head Aches Pulmonary: No Dyspnea; Cough Cardiovascular: No: Chest Pain Gastrointestinal: Nausea, Vomiting, Diarrhea; No: Abdominal Pain Genitourinary: No Dysuria, No Hematuria Neurological: Other (tremor); No: Weakness Objective Exam Last Set of Vital Signs Vital Signs Date Time Temp Pulse Resp B/P (MAP) Pulse Ox O2 Delivery O2 Flow Rate FiO2 06/14/20 07:00 91 06/14/20 04:19 36.2 19 125/62 (83) 98 Room Air Capillary Refill : Less Than 3 SecondsLess Than 3 Seconds I&O Intake and Output 06/14/20 00:00 Intake Total 2220 ml Balance 2220 ml Intake Oral 1220 ml IV Total 1000 ml # Voids 4 # Bowel Movements 6 Daily Weight Change No No General: Alert, No Acute Distress HEENT: EOMI Lungs: Clear to Auscultation, Normal Air Movement Heart: Regular Rate, No Murmurs Abdomen: Normal Bowel Sounds, No Tenderness Extremities: No Edema Psych/Mental Status: Mental Status NL, Mood NL Results/Procedures Lab Laboratory Tests 06/13/20 08:47: Urine Color YELLOW, Urine Clarity CLEAR, Urine pH 6.0, Urine Specific [place] 1.025H, Urine Protein 2+H, Urine Glucose (UA) 1+H, Urine Ketones NEGATIVE, Urine Nitrite NEGATIVE, Urine Bilirubin NEGATIVE, Urine Urobilinogen 0.2, Urine Leukocyte Esterase NEGATIVE, Urine RBC (Auto) 3+H, Urine RBC 2-5H, Urine WBC 0- 2, Urine Squamous Epithelial Cells 0-2, Urine Crystals NONE, Urine Bacteria NEGATIVE, Urine Casts PRESENT, Urine Hyaline Casts 0-2H, Urine Mucus SMALLH, Urine Culture Indicated NO, Urine Opiates Screen NEGATIVE, Urine Oxycodone Screen NEGATIVE, Urine Methadone Screen NEGATIVE, Urine Propoxyphene Screen NEGATIVE, Urine Barbiturates Screen NEGATIVE, Ur Tricyclic Antidepressants Screen NEGATIVE, Urine Phencyclidine Screen NEGATIVE, Urine Amphetamines Screen NEGATIVE, Urine Methamphetamines Screen NEGATIVE, Urine Benzodiazepines Screen NEGATIVE, Urine Cocaine Screen NEGATIVE, Urine Cannabinoids Screen NEGATIVE 06/13/20 08:53: White Blood Count 24.0H, Red Blood Count 5.93H, Hemoglobin 17.4, Hematocrit 48, Mean Corpuscular Volume 82, Mean Corpuscular Hemoglobin 29, Mean Corpuscular Hemoglobin Concent 36, Red Cell Distribution Width 14.5, Platelet Count 259, Mean Platelet Volume 9.6, Neutrophils (%) (Auto) 83H, Lymphocytes (%) (Auto) 11L , Monocytes (%) (Auto) 6, Eosinophils (%) (Auto) 0, Basophils (%) (Auto) 0, Neutrophils # (Auto) 19.9H, Lymphocytes # (Auto) 2.7, Monocytes # (Auto) 1.4H, Eosinophils # (Auto) 0.0, Basophils # (Auto) 0.0, Neutrophils % (Manual) 81, Lymphocytes % (Manual) 12, Monocytes % (Manual) 5, Band Neutrophils 2, Hypersegmented Neutrophils SLIGHT, Blood Morphology Comment NORMAL, Prothrombin Time 14.7, INR Comment 1.1, Activated Partial Thromboplast Time 26, Sodium Level 134L, Potassium Level 3.1L, Chloride Level 91L, Carbon Dioxide Level 19L, Anion Gap 24H, Blood Urea Nitrogen 38H, Creatinine 0.84, Estimat Glomerular Filtration Rate > 60, BUN/Creatinine Ratio 45, Glucose Level 189H, Calcium Level 7.8L, Corrected Calcium 8.0L, Magnesium Level 2.3, Total Bilirubin 1.0, Aspartate Amino Transf (AST/SGOT) 111H, Alanine Aminotransferase (ALT/SGPT) 127H, Alkaline Phosphatase 84, Ammonia 41H, Total Protein 6.4, Albumin 3.7, Amylase Level 72, Lipase 23, Salicylates Level < 5.0L, Acetaminophen Level < 10L, Serum Alcohol 123H 06/13/20 13:07: Hepatitis A IgM Antibody Non-Reactive, Hepatitis B Surface Antigen Non-Reactive, Hepatitis B Core IgM Antibody Non-Reactive, Hepatitis C Antibody Non-Reactive 06/13/20 13:43: Glucometer 164H 06/13/20 15:45: Glucometer 151H 06/13/20 23:33: Glucometer 102 06/14/20 00:01: Glucometer 107 06/14/20 06:10: Glucometer 101 Assessment/Plan Assessment/Plan Assessment & Plan Alcohol withdrawal- Ativan per CIWA protocol Hematuria- CT showed no obstruction or calculus, will likely need a cystoscopy to evaluate in future Esophageal circumferential wall thickening- seen on CT, will likely need endoscopic evaluation in future Hypokalemia- improved from yesterday but still low, replace Elevated liver enzymes- improved from yesterday but still elevated, likely secondary to chronic alcohol use DVT prophylaxis- enoxaparin Clinical Quality Measures DVT/VTE Risk/Contraindication: Risk Factor Score Per Nursin RFS Level Per Nursing on Admit: 4+=Very High SHY DRAKE MD 06/14/20 1534: Supervisory-Addendum Brief Verification & Attestation Participated in pt care: history, MDM, physical Personally performed: exam, history, MDM, supervision of care Care discussed with: Medical Student Procedures: n/a I personally saw and examined patient today. ALON CHAMBERS,MED STUDENT Jun 14, 2020 08:43 SHY DRAKE MD Jun 14, 2020 15:34
[2020-06-14] MEDS ORDERED: THIAMINE INJECTION 100 MG, FOLIC ACID INJECTION 1 MG, MAGNESIUM SULFATE 2 GM, VITAMIN M... IV SCH ×5 (09:00)
[2020-06-14] MEDS ORDERED: FOLIC ACID 1 MG TAB PO SCH (09:00)
[2020-06-14 09:02] LABS: HEMOGLOBIN 13.7 G/DL (13.3-17.7); MEAN PLATELET VOLUME 9.6 FL (7.4-10.4); WHITE BLOOD COUNT 10.9 10^3/uL (4.3-11.0)
[2020-06-14 09:13] LABS: ALBUMIN 3.1 GM/DL (3.2-4.5)
[2020-06-14 09:14] LABS: CHLORIDE 96 MMOL/L (98-107); POTASSIUM 3.5 MMOL/L (3.6-5.0); SODIUM 133 MMOL/L (135-145)
[2020-06-14 09:15] LABS: CALCIUM 7.6 MG/DL (8.5-10.1)
[2020-06-14 09:16] LABS: GLUCOSE 100 MG/DL (70-105); TOTAL PROTEIN 5.4 GM/DL (6.4-8.2)
[2020-06-14 09:17] LABS: CARBON DIOXIDE 28 MMOL/L (21-32)
[2020-06-14 09:18] LABS: BILIRUBIN,TOTAL 1.4 MG/DL (0.1-1.0)
[2020-06-14 09:20] LABS: ALKALINE PHOSPHATASE 83 U/L (40-136); CREATININE SERUM 0.81 MG/DL (0.60-1.30); GFR ESTIMATED > 60
[2020-06-14 09:21] LABS: BUN/CREATININE RATIO 27
[2020-06-14 09:23] LABS: ALANINE AMINOTRANSFERASE 78 U/L (0-55)
--- NOTE | 2020-06-14 11:04 | NUR ---
PT CONTINUING TO BE RESTLESS AND FIDGETY, HE REPORTS HE WANTS TO GO SMOKE CIGARETTES. THIS RN ASKED HOW MUCH HE SMOKED DAILY, HE SAID A PPD. RN ORDERED NICOTINE PATCH PER NURSING PROTOCOL.
[2020-06-14] MEDS ORDERED: NICOTINE 21 MG (NICODERM) PATCH TD SCH (11:07)
--- NOTE | 2020-06-14 12:30 | NUR ---
this nurse to pt's room to help calm pt down. he is insisting that he needs to go and do some work. pt is very confused and thinks he is at [facility]. he is somewhat combative and belligerent insisting that he is going to go and does not need help. Dr Yates was contacted as this nurse and a sitter where walking with the pt. he was taken to the icu area for safer environment while waiting for doctors orders. Dr Yates instructed this nurse to contact the pt's S/O and see if she would be willing to have him leave in her custody. Pt may be more aggressive and belligerent due to us trying to keep him here. S/O was contacted and she agreed to take pt home with her. discharge instructions where given verbally as the pt was unwilling to wait for the paper work this nurse took the pt to the exit via wheel chair and helped S/O put pt safely in the truck and buckled him in.
[2020-06-14] MEDS ORDERED: HALOPERIDOL 5 MG/ML (HALDOL) VIAL ONE (12:38)
[2020-06-14] MEDS ORDERED: HALOPERIDOL 5 MG/ML (HALDOL) VIAL IM ONE (12:45)
--- NOTE | 2020-06-14 12:55 | NUR ---
"RD ASSESSMENT PMHx: alcoholism PT INTERACTION: Pt was awake and pleasant during nutrition assessment. Note pt was confused at times during assessment, and needed redirection. Pt states current appetite is good. Note avg PO intake <25% x2meal, per chart review. Pt states following a regular diet at home, and has no issues with chewing/swallowing food. Pt states some recent issues with nausea, but not vomiting, constipation, or diarrhea. Note last BM was 06/13, and pt currently on bowel regimen of senna PRN, per chart review. Pt states no recent wt changes. Note recent 28# wt loss x10mon, per chart review. ABNORMAL NUTRITION-RELATED LAB VALUES LOW: Na 134; K 3.1; Cl 91; Ca 7.8 HIGH: BUN 84; glu 189; AST 111; ALT 127 Est. kcal needs: 2050 kcal | 25 kcal/kg Est. Pro needs: 66 g Pro | 0.8 g Pro/kg PES STATEMENT: Inadequate oral intake (NI-2.1) related to loss of appetite | nausea as evidenced by pt interview | avg PO intake <25% x2meal INTERVENTION: Continue with current diet order of Regular diet. Add Ensure Enlive (vary) to meals TID, for increased kcal intake. Provides 350 kcal and 13 g Pro per serving. Will continue to follow and reassess as pt needs, intake, and status change. MONITOR/EVALUATE: PO Intake; Plan of Care; Hydration Status; Weight Status; Lab Values Sarah Carrillo, MS, RD, LD"
--- NOTE | 2020-06-14 13:30 | NUR ---
TODAY THIS RN DID TAKE CARE OF PT THAT IS GOING THRU ALCOHOL DETOX. FIRST CIWA SCALE DONE AT APPROX 0750 AND PT DID QUALIFY FOR 2 MG OF ATIVAN. HE ALSO WAS NAUSEATED PRIOR TO THIS AND ZOFRAN WAS ADMIN. PT ASKED SAME QUESTIONS OVER AND OVER. HE WAS VERY POLITE AT THIS POINT AND TRIED TO CONVINCE US HE WAS NOT CONFUSED AND HAD BEEN THRU 'DETOX' BEFORE. PT ASKED FOR ATIVAN AFTER IT WAS ADMIN IV (D/T NAUSEA), HE SAID WOULD SAY HE FORGOT AND RN REMINDED HIM THAT IN AN HOUR I WOULD ASK HIM THE CWIA SCALE QUESTIONS AGAIN. BY MID MORNING PT REQUIRED A ONE ON ONE SITTER DUE TO GETTING OUT OF BED OR CHAIR AND TELLING NURSES HE HAD THINGS TO DO. HE HAD BEEN RECEIVING HIS DOSES OF ATIVAN WHICH WAS MAKING HIM UNSTEADY ON HIS FEET. BED ALARM WAS ALSO ON WHILE SITTER IN ROOM. 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 SITTER AND RN ATTEMPTED TO KEEP HIM OCCUPIED AND DIVERT ATTENTION WITH CONVERSATION AND TV. PT GREW MORE RESTLESS MORNING WORE ON. HE WOULD CONTINUALLY PICK AT HIS IV SITE THAT THIS RN COVERED WITH STEPHANIE BANDAGE, HE WOULD TELL US HE UNDERSTOOD THEN WENT RIGHT BACK TO PICKING AT IT. DR WELLS DID ROUNDS THEN ALERTED THAT PT WAS GETTING MORE CONFUSED AND THAT THIS RN WAS CONCERNED ABOUT THE AMOUNT OF ATIVAN HE WAS REQUIRING. DR WELLS REPORTED TO KEEP CIWA SCALE GOING AND TO USE ATIVAN 'LIGHTLY' SO HE WOULD NOT HAVE TOO MUCH IN SYSTEM. ABOUT 1233 DR DEVINE, CANS [employer] TESTER THIS WEEKEND AT [facility] FOR DR WELLS, SHE WAS ALERTED THAT PT WAS CONTINUED TO GET MORE AGITATED AND THAT ROUTE DELIVERY SUPERVISOR, NANCY DICK WAS NOW IN PTS ROOM ASSISTING WITH CARE AND WANTED HIM TRANSFERRED OFF UNIT B/C MED SURG WAS NOT ABLE TO HANDLE HIM AT THIS TIME D/T LEVEL OF CARE HE WAS REQUIRING. PT AT THIS TIME WAS INSISTING TO STAND AND GIVING VARIOUS STORIES ON WHERE AND WHAT HE NEEDED TO DO. WE HAD HIM TALK TO HIS GIRLFRIEND, AUREA, TO SEE IF THIS WOULD CALM HIM. DR DEVINE SAID TO GIVE HIM 3 MG OF HALDOL IM TO SEE IF THIS WOULD HELP. NANCY DICK, ROUTE DELIVERY SUPERVISOR, ASKED THIS RN TO DO ANOTHER CIWA SCALE AT THIS TIME TO SEE HOW MUCH ATIVAN HE COULD HAVE. THIS RN CALLED GIRLFRIEND EARLIER IN SHIFT AND SHE REPORTED TO THIS RN THAT PT HAD A 9 DAY DRINKING MARTINES OF FIREBALL [employer]ISKEY. SHE ALSO TOLD THIS RN THAT PT CAN BE MANIPULATIVE AND THAT HE WOULD TAKE ASK US FOR ANYTHING TO GET HIM 'HIGH'. SHE ALSO SAID THAT HIS TOLERANCE WAS EXTREMELY HIGH. AUREA REPORTED THAT HE HAD HAD 90'S CLEAN THEN RECENTLY RELAPSED ON HIS BIRTHDAY. PT REPORTED TO THIS RN EARLIER IN SHIFT HE ONLY WANTED CONTACT WITH AUREA, NO ONE ELSE. RN TOOK OFF CONTACT ON LIST THAT WAS LISTED HIS DAUGHTER. BY 1240 PT WAS WALKING HALLS WITH NANCY DICK AND TITI HIGUERA. DR DEVINE AGAIN WAS CONTACTED BY THIS RN BC ROUTE DELIVERY SUPERVISOR WANTED TO MOVE HIM TO ICU D/T HIGHER LEVEL OF CARE NEEDED. NANCY CALLED DR DEVINE AFTER RN DID. PT WAS DISCHARGED BY NANCY IN CARE OF GIRLFRIEND, AUREA AT APPROX 1315.
--- NOTE | 2020-06-14 14:41 | NUR ---
CM/SS: Visited with pt as to drug and alcohol needs as per consult Plan: Undetermined at this time Summary: Pt is in bed and having issues with remaining there as well as continues to pull on his IV and continues to attempt to get out of bed. Pt has a one on one and he is unable to follow directions. Pt is able to give this worker some information reporting that he has been in treatment previously and it helped. Pt has family, but does not want them to be contacted and only wants his friend Ines to be contacted. This worker is given her phone number from the nurse and will follow up.
--- NOTE | 2020-06-14 15:00 | Discharge Summary ---
Discharge Summary Hospital Course Problems/Diagnosis: (1) Alcohol withdrawal Status: Acute Assessment & Plan: Lorazepam per [facility] protocol. On 06/14 patient was more a gitated and walking halls, mildly confused, requesting discharge, girlfriend wanted to take him home and planned to watch him closely. Qualifiers: Qualified Codes: F10.230 - Alcohol dependence with withdrawal, uncomplicated (2) Hyperammonemia Status: Acute Assessment & Plan: No clear indication of encephalopathy. (3) Leukocytosis Status: Resolved Resolution Date/Time: 06/14/20 @ 15:36 Assessment & Plan: Unclear etiology, no sign of infection, monitor. (4) High anion gap metabolic acidosis Status: Resolved Resolution Date/Time: 06/14/20 @ 15:36 Assessment & Plan: Likely secondary to alcoholic ketoacidosis. Monitor, IVF. (5) Hypokalemia Status: Acute Assessment & Plan: Replaced (6) Hyponatremia Status: Acute Assessment & Plan: Secondary to combination of volume depletion and alcoholism, IVF and follow. (7) Elevated liver enzymes Status: Acute Assessment & Plan: Hepatitis panel negative. (8) Hematuria Status: Acute Assessment & Plan: Unknown etiology, CT abdomen/pelvis without renal pathology, may need cystoscopy outpatient. Qualifiers: Qualified Codes: R31.29 - Other microscopic hematuria (9) Hypocalcemia Status: Acute (10) Esophageal thickening Status: Acute Assessment & Plan: Noted incidentally on CT, will likely need EGD outpatient. Hospital Course Date of Admission: Jun 13, 2020 at 09:57 Admission Diagnosis : See problem list Family Physician/Provider: [place]/[facility] Date of Discharge: 06/14/20 Discharge Diagnosis: See problem list Hospital Course: See problem list Labs and Pending Lab Test: Laboratory Tests 06/13/20 15:45: Glucometer 151H 06/13/20 23:33: Glucometer 102 06/14/20 00:01: Glucometer 107 06/14/20 06:10: Glucometer 101 06/14/20 08:57: White Blood Count 10.9, Red Blood Count 4.68, Hemoglobin 13.7#, Hematocrit 39L, Mean Corpuscular Volume 84, Mean Corpuscular Hemoglobin 29, Mean Corpuscular Hemoglobin Concent 35, Red Cell Distribution Width 14.1, Platelet Count 152, Mean Platelet Volume 9.6, Sodium Level 133L, Potassium Level 3.5L, Chloride Level 96L, Carbon Dioxide Level 28, Anion Gap 9, Blood Urea Nitrogen 22H, Creatinine 0.81, Estimat Glomerular Filtration Rate > 60, BUN/Creatinine Ratio 27, Glucose Level 100, Calcium Level 7.6L, Corrected Calcium 8.3L, Total Bilirubin 1.4H, Aspartate Amino Transf (AST/SGOT) 81H, Alanine Aminotransferase (ALT/SGPT) 78H, Alkaline Phosphatase 83, Total Protein 5.4L, Albumin 3.1L Home Meds Active Reported Multivitamin 1 Each Tablet 1 Each PO DAILY Biotin 10,000 Mcg Capsule 10,000 Mcg PO DAILY Aspirin EC (Aspirin) 81 Mg Tablet. 81 Mg PO DAILY Assessment/Pt DC Instructions Someone will call you with a follow up appointment at [facility]. Discharge Diet: No Restrictions Orders-Post D/C & Referrals Pneu Vac Indicated: Yes Discharge Physical Examination Allergies: Coded Allergies: No Allergy Information Available (Unverified , 05/24/18) General Appearance: No Apparent Distress Respiratory: Lungs Clear, Normal Breath Sounds Cardiovascular: Regular Rate, Rhythm, No Murmur Gastrointestinal: Normal Bowel Sounds, Non Tender, Soft Neurologic/Psychiatric: Alert, Other (oriented to self only) Clinical Quality Measures DVT/VTE Risk/Contraindication: Risk Factor Score Per Nursin RFS Level Per Nursing on Admit: 4+=Very High SHY DRAKE MD Jun 14, 2020 14:59
[2020-06-15] MEDS ORDERED: NICOTINE PATCH REMOVAL TP SCH (08:59)
== END 2020-06-14 13:15 | disposition designated cancer center or children's hospital (05) ==
LOC: EDUNIT# 07:36 → ER 07:37 → INTOOBSV 09:57 → 4TH 09:57
PROVIDERS: ADMIT Family Medicine; ATTEND Internal Medicine
DX: F10.230 Alcohol dependence with withdrawal, uncomplicated (principal); E72.20 Disorder of urea cycle metabolism, unspecified; D72.829 Elevated white blood cell count, unspecified; E87.6 Hypokalemia; E87.1 Hypo-osmolality and hyponatremia; R74.8 Abnormal levels of other serum enzymes; R31.29 Other microscopic hematuria; E83.51 Hypocalcemia; K22.8 Other specified diseases of esophagus; F41.9 Anxiety disorder, unspecified; F32.9 Major depressive disorder, single episode, unspecified; Z79.82 Long term (current) use of aspirin; Z79.899 Other long term (current) drug therapy; Z87.891 Personal history of nicotine dependence
CPT/HCPCS: 74176; 80053 ×2; 80074; 80306; 81000; 82140; 82150; 82962 ×2; 83690; 83735; 85007; 85027 ×2; 85610; 85730; 93005; 99284; G0378; G0480 ×3; 36415; 80320; 80329; 96361; 96374; 96375

== ENCOUNTER 2020-06-15 04:39 | Emergency (ER) | payer SELFPAY ==
[~2020-06-15] VITALS: Ht 183 cm; Wt 82.3 kg
[~2020-06-15 04:39] MED LIST changes: +MULT-1136 PO
[2020-06-15] MEDS ORDERED: LACTATED RINGERS 1,000 ML IV ONE (04:53)
[2020-06-15 04:59] LABS: BASOPHILS % (AUTO) 0 % (0-10); EOSINOPHILS # (AUTO) 0.1 10^3/uL (0.0-0.3); EOSINOPHILS % (AUTO) 1 % (0-10); HEMATOCRIT 38 % (40-54); HEMOGLOBIN 13.1 G/DL (13.3-17.7); LYMPHOCYTES # (AUTO) 2.7 X 10^3 (1.0-4.0); LYMPHOCYTES % (AUTO) 31 % (12-44); MEAN CORPUSCULAR HEMOGLOBIN 29 PG (25-34); MEAN CORPUSCULAR HGB CONC 35 G/DL (32-36); MEAN CORPUSCULAR VOLUME 84 FL (80-99); MEAN PLATELET VOLUME 9.9 FL (7.4-10.4); MONOCYTES # (AUTO) 0.8 X 10^3 (0.0-1.0); MONOCYTES % (AUTO) 9 % (0-12); NEUTROPHILS % (AUTO) 58 % (42-75); PLATELET COUNT 144 10^3/uL (130-400); WHITE BLOOD COUNT 8.5 10^3/uL (4.3-11.0)
--- NOTE | 2020-06-15 05:04 | ED Trauma-Multisystem ---
General Chief Complaint: Trauma-Non Activation Stated Complaint: FALL Nursing Triage Note: brought in by [facility] s/p fall down approx. 10steps. pt with etoh (2 beers) tonight. right scalp laceration. Source of Information: Patient Exam Limitations: No Limitations History of Present Illness Date Seen by Provider: Jun 15, 2020 Time Seen by Provider: 04:43 Initial Comments Here by EMS reports patient had fall at home. Apparently fell down several steps to the basement. EMS reports that the steps went down on a few and then turned and went down. He was up afterwards. Onset within the last hour. Apparently patient is alcoholic and was actually seen here a few days ago for detox but patient became quite agitated and left. He has remained agitated or somewhat confused since per report. Patient states he only drank 2 beers but he also reports that he fell at 9 PM. Fall occurred around 4 AM. Patient does seem to be confabulating some and appears confused. Follows commands appropriately. Denies fever, chills, nausea, vomiting or diarrhea. Denies pain anywhere other than the area of injury to the right side of the head. Does have 3-4 cm laceration to the right scalp above mormon area. Several small scattered wounds to the hands consistent with the fall. These are all superficial. Location Injury Occurred: home Occurred: This Morning (approximately one hour ago) Severity: Moderate Pain/Injury Location: Head, Upper Extremity Method of Injury: Fall Modifying Factors: Rest Loss of Consciousness: No Loss of Consciousness Associated Symptoms (Fall): No Abdominal Pain, No Chest Pain; Confusion, Headache; No Muscle Spasms, No Nausea/Vomiting, No Neck Pain, No Shortness of Air Allergies and Home Medications Allergies Coded Allergies: No Allergy Information Available (Unverified , 05/24/18) Home Medications Aspirin 81 Mg Tablet.dr, 81 MG PO DAILY, (Reported) Biotin 10,000 Mcg Capsule, 10,000 MCG PO DAILY, (Reported) Multivitamin 1 Each Tablet, 1 EACH PO DAILY, (Reported) Patient Home Medication List Home Medication List Reviewed: Yes Review of Systems Review of Systems Constitutional: see HPI; No chills, No fever Eyes: No Symptoms Reported Ears: No Symptoms Reported Nose: No Symptoms Reported Mouth: No Symptoms Reported Throat: No Symptoms to Report Respiratory: No cough, No phlegm Gastrointestinal: No abdominal pain, No nausea, No vomiting Genitourinary: no symptoms reported Musculoskeletal: No back pain, No neck pain Skin: change in color All Other Systems Reviewed Negative Unless Noted: Yes Past Vejuhtq-Kmthsh-Vokqtg Hx Past Med/Social Hx: Reviewed Nursing Past Med/Soc Hx Patient Social History Alcohol Use: Regular Use Number of Drinks Today: II Alcohol Beverage of Choice: Beer, Wine, Other Recreational Drug Use: Yes Drug of Choice: marijuana Smoking Status: Former Smoker Type Used: Cigarettes Former Smoker, Quit: May 04, 2018 2nd Hand Smoke Exposure: No Recent Foreign Travel: No Contact w/Someone Who Travel: No Recent Infectious Disease Expo: No Recent Hopitalizations: Yes Physical Abuse: No Sexual Abuse: No Mistreated: No Fear: No Immunizations Up To Date Tetanus Booster (TDap): Less than 5yrs Seasonal Allergies Seasonal Allergies: No Past Medical History Surgeries: Yes (INGUINAL HERNIA REPAIR;BILAT CLAVICLE FX/ORIF;C-SPINE FX/FUSION AGE 17) Abdominal, Orthopedic Respiratory: No Cardiac: No Neurological: Yes (HEPATIC ENCEPHALOPATHY) Genitourinary: No Gastrointestinal: Yes (S/P INGUINAL HERNIA REPAIR;HEPATIC ENCEPHALOPATHY) Abdominal Hernia, Liver Disease/Jaundice Musculoskeletal: Yes (C-SPINE FRACTURE /ORIF AGE 17; BILAT CLAVICLE FX/ORIF) Fractures Endocrine: No HEENT: No Cancer: No Psychosocial: Yes (SUICIDAL IDEATION, ALCOHOLISM) Anxiety, Depression Integumentary: No Blood Disorders: No Adverse Reaction/Blood Tranf: No Family Medical History Reviewed Nursing Family Hx Patient reports no known family medical history. Hypertension Physical Exam Vital Signs Vital Signs - First Documented 06/15/20 04:41 Temp 36.7 Pulse 98 Resp 18 B/P (MAP) 135/93 (107) Pulse Ox 96 O2 Delivery Room Air Height, Weight, BMI Height: 6'1.00" Weight: 188lbs. 0.0oz. 85.286013eo; 24.00 BMI Method:Stated General Appearance: WD/WN, Other Head: Other Ears, Nose, Throat: Hearing Grossly Normal, No Evidence of ENT Injury, No Dental Injury Neck: Non Tender, Supple Cardiovascular: No Murmur, Tachycardia Respiratory: Lungs Clear, Normal Breath Sounds Back: Normal Inspection, No CVA Tenderness, No Vertebral Tenderness Extremity: Normal Range of Motion, Non Tender Neurologic/Psychiatric: Alert, Oriented x3 Skin: Warm/Dry, Other (scattered abrasions to the hands. Laceration as above) Lucas Coma Score Best Eye Response (Lucas): (4) Open Spontaneously Best Verbal Response (Lucas): (4) Confused Conversation Best Motor Response (Lucas): (6) Obeys Commands Procedures/Interventions Wound Location: Scalp Other Wound Location Right for head lateral aspect Wound Length (cm): 4 Wound's Depth, Shape: stellate Wound Explored: contaminated Irrigated w/ Saline (ccs): 50 Betadine Prep?: Yes Anesthesia: Lidocaine w/ Epi Volume Anesthetic (ccs): 10 Wound Debrided: minimal Staple Repair: Stapler 35W Number of Sutures: 11 Layer Closure?: 1 Number Deep Layer Sutures: 0 Sterile Dressing Applied?: Yes Progress Closed with sarai after thorough cleaning and anesthesia. Covered with ointment and dressing. Tolerated procedure well with no complications. Progress/Results/Core Measures Results/Orders Lab Results Laboratory Tests Test 06/15/20 04:45 06/15/20 05:50 Range/Units White Blood Count 8.5 4.3-11.0 10^3/uL Red Blood Count 4.51 4.35-5.85 10^6/uL Hemoglobin 13.1 L 13.3-17.7 G/DL Hematocrit 38 L 40-54 % Mean Corpuscular Volume 84 80-99 FL Mean Corpuscular Hemoglobin 29 25-34 PG Mean Corpuscular Hemoglobin Concent 35 32-36 G/DL Red Cell Distribution Width 14.2 10.0-14.5 % Platelet Count 144 130-400 10^3/uL Mean Platelet Volume 9.9 7.4-10.4 FL Neutrophils (%) (Auto) 58 42-75 % Lymphocytes (%) (Auto) 31 12-44 % Monocytes (%) (Auto) 9 0-12 % Eosinophils (%) (Auto) 1 0-10 % Basophils (%) (Auto) 0 0-10 % Neutrophils # (Auto) 5.0 1.8-7.8 X 10^3 Lymphocytes # (Auto) 2.7 1.0-4.0 X 10^3 Monocytes # (Auto) 0.8 0.0-1.0 X 10^3 Eosinophils # (Auto) 0.1 0.0-0.3 10^3/uL Basophils # (Auto) 0.0 0.0-0.1 10^3/uL Sodium Level 133 L 135-145 MMOL/L Potassium Level 3.0 L 3.6-5.0 MMOL/L Chloride Level 95 L 98-107 MMOL/L Carbon Dioxide Level 26 21-32 MMOL/L Anion Gap 12 5-14 MMOL/L Blood Urea Nitrogen 31 H 7-18 MG/DL Creatinine 0.77 0.60-1.30 MG/DL Estimat Glomerular Filtration Rate > 60 BUN/Creatinine Ratio 40 Glucose Level 102 70-105 MG/DL Calcium Level 8.2 L 8.5-10.1 MG/DL Corrected Calcium 8.8 8.5-10.1 MG/DL Magnesium Level 2.2 1.6-2.4 MG/DL Total Bilirubin 0.8 0.1-1.0 MG/DL Aspartate Amino Transf (AST/SGOT) 91 H 5-34 U/L Alanine Aminotransferase (ALT/SGPT) 79 H 0-55 U/L Alkaline Phosphatase 93 40-136 U/L Ammonia 34 H 11-32 UMOL/L Total Protein 5.5 L 6.4-8.2 GM/DL Albumin 3.2 3.2-4.5 GM/DL TSH Strawberry Testing 1.23 0.35-4.94 UIU/ML Salicylates Level < 5.0 L 5.0-20.0 MG/DL Acetaminophen Level < 10 L 10-30 UG/ML Serum Alcohol < 10 <10 MG/DL Urine Color YELLOW Urine Clarity CLEAR Urine pH 6.0 5-9 Urine Specific [place] <=1.005 1.016-1.022 Urine Protein NEGATIVE NEGATIVE Urine Glucose (UA) NEGATIVE NEGATIVE Urine Ketones TRACE H NEGATIVE Urine Nitrite NEGATIVE NEGATIVE Urine Bilirubin NEGATIVE NEGATIVE Urine Urobilinogen 0.2 < = 1.0 MG/DL Urine Leukocyte Esterase NEGATIVE NEGATIVE Urine RBC (Auto) 1+ H NEGATIVE Urine RBC 0-2 /HPF Urine WBC NONE /HPF Urine Squamous Epithelial Cells RARE /HPF Urine Crystals NONE /LPF Urine Bacteria NEGATIVE /HPF Urine Casts NONE /LPF Urine Mucus SMALL H /LPF Urine Culture Indicated NO Urine Opiates Screen NEGATIVE NEGATIVE Urine Oxycodone Screen NEGATIVE NEGATIVE Urine Methadone Screen NEGATIVE NEGATIVE Urine Propoxyphene Screen NEGATIVE NEGATIVE Urine Barbiturates Screen NEGATIVE NEGATIVE Ur Tricyclic Antidepressants Screen NEGATIVE NEGATIVE Urine Phencyclidine Screen NEGATIVE NEGATIVE Urine Amphetamines Screen NEGATIVE NEGATIVE Urine Methamphetamines Screen NEGATIVE NEGATIVE Urine Benzodiazepines Screen POSITIVE H NEGATIVE Urine Cocaine Screen NEGATIVE NEGATIVE Urine Cannabinoids Screen NEGATIVE NEGATIVE My Orders Orders - MICHAEL ARCOS MD Acetaminophen (06/15/20 04:53) Alcohol (06/15/20 04:53) Ammonia (06/15/20 04:53) Cbc With Automated Diff (06/15/20 04:53) Comprehensive Metabolic Panel (06/15/20 04:53) Drug Screen Stat (Urine) (06/15/20 04:53) Magnesium (06/15/20 04:53) Salicylate (06/15/20 04:53) Thyroid Analyzer (06/15/20 04:53) Ua Culture If Indicated (06/15/20 04:53) Ed Iv/Invasive Line Start (06/15/20 04:53) Lactated Ringers (Lr 1000 Ml Iv Solution (06/15/20 04:53) Ct Head/Cervical Spine Wo (06/15/20 04:53) Ekg Tracing (06/15/20 04:53) Lidocaine/Epi 1% 1:100,000 (Xylocaine /E (06/15/20 06:00) Lidocaine/Epi 2% 1:100,000 (Xylocaine/Ep (06/15/20 06:00) Ketorolac Injection (Toradol Injection) (06/15/20 06:40) Olanzapine Orally Dissolve Tab (Zyprexa (06/15/20 06:45) Medications Given in ED Current Medications Medications Dose Ordered Sig/Ernie Route Start Time Stop Time Status Last Admin Dose Admin Lactated Ringer's 1,000 ml @ 0 mls/hr Q0M ONCE IV 06/15/20 04:53 06/15/20 04:55 DC 06/15/20 04:57 0 MLS/HR Lidocaine/ Epinephrine 20 ml ONCE ONCE INJ 06/15/20 06:00 06/15/20 06:01 DC 06/15/20 06:08 20 ML Olanzapine 5 mg ONCE ONCE PO 06/15/20 06:45 06/15/20 06:46 DC 06/15/20 06:47 5 MG Vital Signs/I&O 06/15/20 04:41 Temp 36.7 Pulse 98 Resp 18 B/P (MAP) 135/93 (107) Pulse Ox 96 O2 Delivery Room Air Blood Pressure Mean: 107 Progress Progress Note : Progress Note Seen and evaluated. IV, labs, CT head and neck ordered. LR 1 L bolus. Monitor patient. 0705: Wound was repaired with sarai. CT is negative. I had several long conversations with the patient and his fiance regarding my belief that he should stay in the hospital given the head injury and alcohol withdrawal with confusion. Patient is alert to self and place and situation and is adamant that he is not going to stay. He has spoken with his fiance as well. Despite both of our attempts, patient does not want to be admitted. He was given Toradol 30 mg IV as well as Zyprexa 5 mg by mouth for pain and mild psychosis. He has not slept for a few days so this may help. Patient did ask for narcotics which was denied. He states that he is not in a drink anymore and will restart AA. Discharged home with return precautions. Patient and fiance (via phone) verbalize understanding instructions and agreement with plan. Initial ECG Impression Date: Jun 15, 2020 Initial ECG Impression Time: 04:48 Initial ECG Rate: 94 Initial ECG Rhythm: Normal Sinus Initial ECG Comparisson: Unchanged (plan/01/12.) Comment Sinus rhythm with incomplete left bundle branch block. No evidence of this eleva tion MO. Interpreted by me. Diagnostic Imaging Diagonstic Imaging: CT Plain Films/CT/US/NM/MRI: c-spine, head Comments No acute hemorrhage, hydrocephalus or mass effect. No acute fracture or subluxation of the C-spine. Reviewed: Reviewed by Me Departure Impression Primary Impression: Head injury, acute, without loss of consciousness Qualified Codes: S09.90XA - Unspecified injury of head, initial encounter Additional Impressions: Laceration of scalp Qualified Codes: S01.01XA - Laceration without foreign body of scalp, initial encounter Alcohol abuse Disposition: HOME, SELF-CARE Condition: Stable Departure-Patient Inst. Decision time for Depature: 07:02 Referrals: [facility] (PCP/Family) Primary Care Physician Patient Instructions: Laceration Repair With [place] (DC), Concussion, Adult (DC) Add. Discharge Instructions: All discharge instructions reviewed with patient and/or family. Voiced understanding. Do not drink alcohol. You need to rest today. [place] out in 7 days. You may return to the emergency department to have sarai removed. You may shower but do not scrub vigorously. You may put antibiotic ointments and dressing over the wound as needed for the next several days and then cover with dry dressing. You may take Tylenol 1000 mg every 8 hours as needed for pain. He may take ibuprofen 600 mg every 8 hours as needed for pain. Drink plenty of fluids. Eat a normal diet. Follow-up with your Dr. in 2-3 days for recheck. Return for worse pain, weakness, vision or balance problems, difficulty with walking or other concerns as needed. MICHAEL ARCOS MD Jun 15, 2020 05:04
[2020-06-15 05:10] LABS: ALBUMIN 3.2 GM/DL (3.2-4.5); CHLORIDE 95 MMOL/L (98-107); SODIUM 133 MMOL/L (135-145)
[2020-06-15 05:11] LABS: CALCIUM 8.2 MG/DL (8.5-10.1)
[2020-06-15 05:12] LABS: AMMONIA 34 UMOL/L (11-32); GLUCOSE 102 MG/DL (70-105)
[2020-06-15 05:13] LABS: CARBON DIOXIDE 26 MMOL/L (21-32); TOTAL PROTEIN 5.5 GM/DL (6.4-8.2)
[2020-06-15 05:14] LABS: BILIRUBIN,TOTAL 0.8 MG/DL (0.1-1.0)
[2020-06-15 05:16] LABS: ALKALINE PHOSPHATASE 93 U/L (40-136); CREATININE SERUM 0.77 MG/DL (0.60-1.30); GFR ESTIMATED > 60
[2020-06-15 05:18] LABS: BUN/CREATININE RATIO 40
[2020-06-15 05:19] LABS: ALANINE AMINOTRANSFERASE 79 U/L (0-55); SALICYLATE < 5.0 MG/DL (5.0-20.0)
[2020-06-15 05:20] LABS: MAGNESIUM 2.2 MG/DL (1.6-2.4)
[2020-06-15 05:23] LABS: ACETAMINOPHEN < 10 UG/ML (10-30)
[2020-06-15 05:40] LABS: TSH (THYROID ANALYZER) 1.23 UIU/ML (0.35-4.94)
[2020-06-15 05:58] LABS: BILIRUBIN,URINE NEGATIVE (NEGATIVE); CLARITY,URINE CLEAR; COLOR,URINE YELLOW; GLUCOSE, URINE (UA) NEGATIVE (NEGATIVE); KETONES,URINE TRACE (NEGATIVE); LEUKOCYTE ESTERASE ,URINE NEGATIVE (NEGATIVE); NITRITE,URINE NEGATIVE (NEGATIVE); PROTEIN,URINE NEGATIVE (NEGATIVE)
[2020-06-15] MEDS ORDERED: LIDOCAINE/EPI 2% 1:100,00 (XYLOCAINE) 20 ML VIAL INJ ONE (06:00)
[2020-06-15] MEDS ORDERED: LIDOCAINE/EPI 1%-1:100,000 (XYLOCAINE) 20ML INJ ONE (06:00)
[2020-06-15 06:10] LABS: AMPHETAMINE SCREEN, URINE NEGATIVE (NEGATIVE); BARBITURATE SCREEN URINE NEGATIVE (NEGATIVE); BENZODIAZEPINES SCREEN URINE POSITIVE (NEGATIVE); CANNABINOID SCREEN, URINE NEGATIVE (NEGATIVE); COCAINE SCREEN URINE NEGATIVE (NEGATIVE); METHADONE STAT NEGATIVE (NEGATIVE); METHAMPHETAMINE SCREEN URINE S NEGATIVE (NEGATIVE); OPIATE SCREEN URINE NEGATIVE (NEGATIVE); OXYCODONE STAT NEGATIVE (NEGATIVE); PROPOXYPHENE STAT NEGATIVE (NEGATIVE); RBC,URINE 0-2 /HPF; TRICYCLIC ANTIDEPRESSANTS SCRE NEGATIVE (NEGATIVE)
[2020-06-15 06:11] LABS: BACTERIA,URINE NEGATIVE /HPF; SQUAMOUS EPITHELIAL CELL,UR RARE /HPF
[2020-06-15] MEDS ORDERED: KETOROLAC 30 MG/ML VIAL IVP STA (06:40)
[2020-06-15] MEDS ORDERED: OLANZapine 5 MG ODT (ZyPREXA ZYDIS) PO ONE (06:45)
--- NOTE | 2020-06-15 06:58 | Diagnostic Imaging Report ---
PROCEDURE: CT head and CT cervical spine without contrast. TECHNIQUE: Multiple contiguous axial images were obtained through the brain and cervical spine without the use of intravenous contrast. Sagittal and coronal reformations through the cervical spine were then performed. Auto Exposure Controls were utilized during the CT exam to meet ALARA standards for radiation dose reduction. INDICATION: Head and neck injury with pain. COMPARISON: 05/31/2018. DISCUSSION: Head: No adverse interval change. No acute intracranial hemorrhage, mass, midline shift, or hydrocephalus. The ventricles and sulci are normal in size and configuration for age. The orbits, sinuses, mastoid air cells, and calvarium are unremarkable. Right-sided scalp laceration noted. Punctate foreign body noted within the laceration bed measuring 2 mm. Cervical spine: Degenerative disease within the cervical spine is stable. There is no acute fracture or subluxation identified. Alignment is anatomic. Paraspinal soft tissues are unremarkable. IMPRESSION: 1. Right-sided scalp laceration with punctate foreign body. 2. No acute intracranial abnormality. 3. Stable degenerative disease within the cervical spine. No acute fracture identified. 4. Agree with preliminary report. Dictated by: Dictated on workstation # [id number]
[2020-06-15 07:10] VITALS: BP 159/75
== END 2020-06-15 07:10 | disposition home or self-care (01) ==
LOC: EDUNIT# 04:39 → ER 04:41
DX: S01.01XA Laceration without foreign body of scalp, initial encounter (principal); S60.512A Abrasion of left hand, initial encounter; S60.511A Abrasion of right hand, initial encounter; S09.90XA Unspecified injury of head, initial encounter; F10.10 Alcohol abuse, uncomplicated; Z82.49 Family history of ischemic heart disease and other diseases of the circulatory system; Z87.891 Personal history of nicotine dependence; Z79.82 Long term (current) use of aspirin; W10.9XXA Fall (on) (from) unspecified stairs and steps, initial encounter
CPT/HCPCS: 12002; 70450; 72125; 80053; 80306; 81000; 82140; 83735; 84443; 85025; 99284; G0480 ×3; 36415; 80320; 80329

== ENCOUNTER 2020-06-28 22:18 | Emergency (ER) | payer SELFPAY ==
[~2020-06-28] VITALS: Ht 182.9 cm; Wt 81.8 kg
--- NOTE | 2020-06-28 22:42 | ED General ---
General Stated Complaint: SUBSTANCE ISSUES Source of Information: Patient Exam Limitations: No Limitations History of Present Illness Date Seen by Provider: Jun 28, 2020 Time Seen by Provider: 22:30 Initial Comments The patient is a 60-year-old male who presents for help with his alcoholism. He states that he drank an entire bottle of Fireball today. He is here with family members who encouraged him to be evaluated and essentially want the emergency department to help make him feel better so that they can take him to a rehabilitation center in the morning. The patient agrees that this is the plan. He reports feeling anxious and a little nauseous. He is never had DTs or seizures from alcohol withdrawal. He is alert and oriented 4, calm, and appears to be in no distress at this time. He denies any other complaints. Timing/Duration: 1 Day Associated Systoms: Nausea/Vomiting (nausea, anxiety) Allergies and Home Medications Allergies Coded Allergies: No Allergy Information Available (Unverified , 05/24/18) Home Medications Aspirin 81 Mg Tablet.dr, 81 MG PO DAILY, (Reported) Biotin 10,000 Mcg Capsule, 10,000 MCG PO DAILY, (Reported) Multivitamin 1 Each Tablet, 1 EACH PO DAILY, (Reported) Patient Home Medication List Home Medication List Reviewed: Yes Review of Systems Review of Systems Constitutional: no symptoms reported EENTM: no symptoms reported Respiratory: no symptoms reported Cardiovascular: no symptoms reported Gastrointestinal: nausea Genitourinary: no symptoms reported Musculoskeletal: no symptoms reported Skin: no symptoms reported Psychiatric/Neurological: No Symptoms Reported Hematologic/Lymphatic: No Symptoms Reported Immunological/Allergic: no symptoms reported All Other Systems Reviewed Negative Unless Noted: Yes Past Tzaxdit-Edkfko-Faysux Hx Past Med/Social Hx: Reviewed Nursing Past Med/Soc Hx Patient Social History Alcohol Beverage of Choice: Beer, Wine, Other Drug of Choice: marijuana Type Used: Cigarettes Former Smoker, Quit: May 04, 2018 2nd Hand Smoke Exposure: No Recent Foreign Travel: No Contact w/Someone Who Travel: No Recent Hopitalizations: Yes Immunizations Up To Date Tetanus Booster (TDap): Less than 5yrs Seasonal Allergies Seasonal Allergies: No Past Medical History Surgeries: Yes (INGUINAL HERNIA REPAIR;BILAT CLAVICLE FX/ORIF;C-SPINE FX/FUSION AGE 17) Abdominal, Orthopedic Respiratory: No Cardiac: No Neurological: Yes (HEPATIC ENCEPHALOPATHY) Genitourinary: No Gastrointestinal: Yes (S/P INGUINAL HERNIA REPAIR;HEPATIC ENCEPHALOPATHY) Abdominal Hernia, Liver Disease/Jaundice Musculoskeletal: Yes (C-SPINE FRACTURE /ORIF AGE 17; BILAT CLAVICLE FX/ORIF) Fractures Endocrine: No HEENT: No Cancer: No Psychosocial: Yes (SUICIDAL IDEATION, ALCOHOLISM) Anxiety, Depression Integumentary: No Blood Disorders: No Adverse Reaction/Blood Tranf: No Family Medical History Patient reports no known family medical history. Hypertension Physical Exam Vital Signs Vital Signs - First Documented 06/28/20 22:30 Temp 36.7 Pulse 106 Resp 12 B/P (MAP) 139/88 (105) Pulse Ox 97 O2 Delivery Room Air Capillary Refill : Height, Weight, BMI Height: 6'1.00" Weight: 188lbs. 0.0oz. 85.336727fh; 24.00 BMI Method:Stated General Appearance: No Apparent Distress, WD/WN, Anxious Eyes: Bilateral Eye Normal Inspection, Bilateral Eye PERRL, Bilateral Eye EOMI HEENT: PERRL/EOMI, Pharynx Normal Neck: Full Range of Motion, Supple Respiratory: Lungs Clear, No Accessory Muscle Use, No Respiratory Distress Cardiovascular: Regular Rate, Rhythm, No Edema, Normal Peripheral Pulses Gastrointestinal: Normal Bowel Sounds, No Pulsatile Mass, Non Tender, Soft Extremity: Normal Capillary Refill, Normal Inspection, Non Tender Neurologic/Psychiatric: Alert, Oriented x3, No Motor/Sensory Deficits, Normal Mood/Affect, Other (smells of ETOH, appears slightly intoxicated) Skin: Normal Color, Warm/Dry Progress/Results/Core Measures Suspected Sepsis SIRS Temperature: Pulse: Respiratory Rate: Laboratory Tests 06/28/20 21:50: White Blood Count 17.3H Blood Pressure / Mean: Laboratory Tests 06/28/20 21:50: Creatinine 0.72, Platelet Count 843H, Total Bilirubin 0.3 Results/Orders Lab Results Laboratory Tests Test 06/28/20 21:50 Range/Units White Blood Count 17.3 H 4.3-11.0 10^3/uL Red Blood Count 5.39 4.35-5.85 10^6/uL Hemoglobin 16.0 13.3-17.7 G/DL Hematocrit 45 40-54 % Mean Corpuscular Volume 84 80-99 FL Mean Corpuscular Hemoglobin 30 25-34 PG Mean Corpuscular Hemoglobin Concent 35 32-36 G/DL Red Cell Distribution Width 15.2 H 10.0-14.5 % Platelet Count 843 H 130-400 10^3/uL Mean Platelet Volume 8.2 7.4-10.4 FL Immature Granulocyte % (Auto) 0 % Neutrophils (%) (Auto) 69 42-75 % Lymphocytes (%) (Auto) 25 12-44 % Monocytes (%) (Auto) 6 0-12 % Eosinophils (%) (Auto) 0 0-10 % Basophils (%) (Auto) 1 0-10 % Neutrophils # (Auto) 11.9 H 1.8-7.8 X 10^3 Lymphocytes # (Auto) 4.3 H 1.0-4.0 X 10^3 Monocytes # (Auto) 1.0 0.0-1.0 X 10^3 Eosinophils # (Auto) 0.0 0.0-0.3 10^3/uL Basophils # (Auto) 0.1 0.0-0.1 10^3/uL Immature Granulocyte # (Auto) 0.1 0.0-0.1 10^3/uL Neutrophils % (Manual) 71 % Lymphocytes % (Manual) 25 % Monocytes % (Manual) 4 % Toxic Granulation 4+ Sodium Level 139 135-145 MMOL/L Potassium Level 3.4 L 3.6-5.0 MMOL/L Chloride Level 95 L 98-107 MMOL/L Carbon Dioxide Level 29 21-32 MMOL/L Anion Gap 15 H 5-14 MMOL/L Blood Urea Nitrogen 21 H 7-18 MG/DL Creatinine 0.72 0.60-1.30 MG/DL Estimat Glomerular Filtration Rate > 60 BUN/Creatinine Ratio 29 Glucose Level 171 H 70-105 MG/DL Calcium Level 8.3 L 8.5-10.1 MG/DL Corrected Calcium 8.5 8.5-10.1 MG/DL Magnesium Level 2.0 1.6-2.4 MG/DL Total Bilirubin 0.3 0.1-1.0 MG/DL Aspartate Amino Transf (AST/SGOT) 21 5-34 U/L Alanine Aminotransferase (ALT/SGPT) 35 0-55 U/L Alkaline Phosphatase 99 40-136 U/L Total Protein 6.5 6.4-8.2 GM/DL Albumin 3.7 3.2-4.5 GM/DL Serum Alcohol 307 *H <10 MG/DL My Orders Orders - NE,STACEY B DO Ed Iv/Invasive Line Start (06/28/20 22:36) Cbc With Automated Diff (06/28/20 22:36) Comprehensive Metabolic Panel (06/28/20 22:36) Alcohol (06/28/20 22:36) Ondansetron Injection (Zofran Injectio (06/28/20 22:45) Lorazepam Injection (Ativan Injection) (06/28/20 22:45) Magnesium (06/28/20 22:37) Manual Differential (06/28/20 21:50) Haloperidol Injection (Haldol Injectio (06/28/20 23:30) Medications Given in ED Current Medications Medications Dose Ordered Sig/Ernie Route Start Time Stop Time Status Last Admin Dose Admin Haloperidol Lactate 5 mg ONCE ONCE IM 06/28/20 23:30 06/28/20 23:31 DC 06/28/20 23:26 5 MG Lorazepam 2 mg ONCE ONCE IVP 06/28/20 22:45 06/28/20 22:46 DC 06/28/20 22:48 2 MG Ondansetron HCl 4 mg ONCE ONCE IVP 06/28/20 22:45 06/28/20 22:46 DC 06/28/20 22:48 4 MG Vital Signs/I&O 06/28/20 22:30 Temp 36.7 Pulse 106 Resp 12 B/P (MAP) 139/88 (105) Pulse Ox 97 O2 Delivery Room Air Capillary Refill : Progress Note : Progress Note @2340 - the patient is clinically intoxicated however family is willing to come pick him up and take him home and they will take him to a rehabilitation facility in the morning. The patient has no new complaints other than repeatedly demanding medications to help him sleep. There is no concern for acute withdrawal at this time. Advised the patient to stop abusing alcohol and to actually go to the treatment facility tomorrow. Departure Impression Primary Impression: Alcohol intoxication Disposition: 01 HOME, SELF-CARE Condition: Stable Departure-Patient Inst. Decision time for Depature: 23:42 Referrals: COUNTS INCLUDE 234 BEDS AT THE [facility] (PCP/Family) Primary Care Physician Patient Instructions: Alcohol Abuse and Alcoholism (DC) Add. Discharge Instructions: Go to the alcohol treatment facility tomorrow as previously arranged. Return to the emergency department for new or worsening symptoms. STACEY OLIVIA DO Jun 28, 2020 22:42
[2020-06-28] MEDS ORDERED: LORazepam INJ 2 MG/ML (ATIVAN) VIAL IVP ONE (22:45)
[2020-06-28] MEDS ORDERED: ONDANSETRON 4 MG/2 ML (SDV) Z0FRAN IVP ONE (22:45)
[2020-06-28 22:53] LABS: HEMATOCRIT 45 % (40-54); MEAN CORPUSCULAR HEMOGLOBIN 30 PG (25-34); MEAN CORPUSCULAR HGB CONC 35 G/DL (32-36); MEAN CORPUSCULAR VOLUME 84 FL (80-99); MEAN PLATELET VOLUME 8.2 FL (7.4-10.4); PLATELET COUNT 843 10^3/uL (130-400); WHITE BLOOD COUNT 17.3 10^3/uL (4.3-11.0)
[2020-06-28 22:54] LABS: BASOPHILS # (AUTO) 0.1 10^3/uL (0.0-0.1); BASOPHILS % (AUTO) 1 % (0-10); EOSINOPHILS % (AUTO) 0 % (0-10); LYMPHOCYTES # (AUTO) 4.3 X 10^3 (1.0-4.0); LYMPHOCYTES % (AUTO) 25 % (12-44); MONOCYTES % (AUTO) 6 % (0-12); NEUTROPHILS # (AUTO) 11.9 X 10^3 (1.8-7.8); NEUTROPHILS % (AUTO) 69 % (42-75)
[2020-06-28 23:11] LABS: ALKALINE PHOSPHATASE 99 U/L (40-136); BILIRUBIN,TOTAL 0.3 MG/DL (0.1-1.0); BUN/CREATININE RATIO 29; CALCIUM 8.3 MG/DL (8.5-10.1); CARBON DIOXIDE 29 MMOL/L (21-32); CHLORIDE 95 MMOL/L (98-107); CREATININE SERUM 0.72 MG/DL (0.60-1.30); GFR ESTIMATED > 60; GLUCOSE 171 MG/DL (70-105); POTASSIUM 3.4 MMOL/L (3.6-5.0); SODIUM 139 MMOL/L (135-145)
[2020-06-28 23:12] LABS: ALANINE AMINOTRANSFERASE 35 U/L (0-55); ALBUMIN 3.7 GM/DL (3.2-4.5); TOTAL PROTEIN 6.5 GM/DL (6.4-8.2)
[2020-06-28 23:13] LABS: LYMPHOCYTES % (MANUAL) 25 %; MONOCYTES % (MANUAL) 4 %; NEUTROPHILS % (MANUAL) 71 %; TOXIC GRANULATION/VACUOLAZATIO 4+
[2020-06-28] MEDS ORDERED: HALOPERIDOL 5 MG/ML (HALDOL) VIAL IM ONE (23:30)
--- NOTE | 2020-06-28 23:42 | NUR ---
Pt's daughter is going to pick him up around 0530 to take him to a rehab facility in [place]. She asked if we can keep him here until then. We told her yes.
[2020-06-28] MEDS: NS IV 1000 ML 1,000 ML IV SCH (23:59)
[2020-06-29] MEDS: NS IV 1000 ML 1,000 ML IV SCH (01:06)
[2020-06-29] MEDS ORDERED: FAMOTIDINE 20 MG (PEPCID) TABLET ONE (05:03)
[2020-06-29] MEDS ORDERED: ANTACID SUSP 30 ML UDC (MYLANTA) PO ONE (05:15)
[2020-06-29] MEDS ORDERED: LIDOCAINE 2% VISCOUS 15 ML UDC PO ONE (05:15)
[2020-06-29] MEDS ORDERED: FAMOTIDINE 20 MG (PEPCID) TABLET PO ONE (05:15)
[2020-06-29] MEDS ORDERED: LORazepam INJ 2 MG/ML (ATIVAN) VIAL IVP ONE (05:45)
--- NOTE | 2020-06-29 05:52 | NUR ---
116/79 95% on room air 92 pulse 20 resp 36.4 5 pain
[2020-06-29 06:04] VITALS: BP 116/79
== END 2020-06-29 06:04 | disposition home or self-care (01) ==
LOC: EDUNIT# 22:18 → ER FS 22:21
DX: F10.129 Alcohol abuse with intoxication, unspecified (principal); F41.9 Anxiety disorder, unspecified; Z82.49 Family history of ischemic heart disease and other diseases of the circulatory system; Z87.891 Personal history of nicotine dependence; Z79.82 Long term (current) use of aspirin
CPT/HCPCS: 36415; 80053; 83735; 85007; 85027; 99284; G0480; 80320

== ENCOUNTER 2020-10-15 12:16 | Inpatient (IN) | payer OTHER ==
[~2020-10-15] VITALS: Ht 182 cm; Wt 91.5 kg
--- NOTE | 2020-10-15 12:29 | ED General ---
General Chief Complaint: Altered Mental Status Stated Complaint: FALL; INTOXICATED History of Present Illness Date Seen by Provider: Oct 15, 2020 Time Seen by Provider: 12:26 Initial Comments 60-year-old male with past medical history significant for alcoholism and multiple relapses after detox presents via EMS when his daughters called this morning as he was not making any sense, confused and laying on the front porch as well as threatening to kill his daughters. Patient had been sober 45 days ago, but family states he's been drinking heavily for the past 2 weeks and not acting himself. On arrival, patient awake, alert and somewhat coherent. Answers questions, but confused. Allergies and Home Medications Allergies Coded Allergies: No Allergy Information Available (Unverified , 05/24/18) Home Medications Aspirin 81 Mg Tablet.dr, 81 MG PO DAILY, (Reported) Biotin 10,000 Mcg Capsule, 10,000 MCG PO DAILY, (Reported) Multivitamin 1 Each Tablet, 1 EACH PO DAILY, (Reported) Patient Home Medication List Home Medication List Reviewed: Yes Review of Systems Review of Systems Constitutional: see HPI, malaise Respiratory: No cough, No short of breath Cardiovascular: No chest pain, No edema Gastrointestinal: No abdominal pain, No nausea, No vomiting Psychiatric/Neurological: Emotional Problems; Denies Seizure; Tremors, Weakness Past Pfcclwp-Azygkv-Gcwdwm Hx Past Med/Social Hx: Reviewed Nursing Past Med/Soc Hx Patient Social History Alcohol Beverage of Choice: Beer, Wine, Other Drug of Choice: marijuana Type Used: Cigarettes Former Smoker, Quit: May 04, 2018 2nd Hand Smoke Exposure: No Recent Hopitalizations: Yes Immunizations Up To Date Tetanus Booster (TDap): Less than 5yrs Seasonal Allergies Seasonal Allergies: No Past Medical History Surgeries: Yes (INGUINAL HERNIA REPAIR;BILAT CLAVICLE FX/ORIF;C-SPINE FX/FUSION AGE 17) Abdominal, Orthopedic Respiratory: No Cardiac: No Neurological: Yes (HEPATIC ENCEPHALOPATHY) Genitourinary: No Gastrointestinal: Yes (S/P INGUINAL HERNIA REPAIR;HEPATIC ENCEPHALOPATHY) Abdominal Hernia, Liver Disease/Jaundice Musculoskeletal: Yes (C-SPINE FRACTURE /ORIF AGE 17; BILAT CLAVICLE FX/ORIF) Fractures Endocrine: No HEENT: No Cancer: No Psychosocial: Yes (SUICIDAL IDEATION, ALCOHOLISM) Anxiety, Depression Integumentary: No Blood Disorders: No Adverse Reaction/Blood Tranf: No Family Medical History Patient reports no known family medical history. Hypertension Physical Exam Vital Signs Vital Signs - First Documented 10/15/20 12:52 Temp 35.4 Pulse 92 Resp 30 B/P (MAP) 93/48 (63) Pulse Ox 94 Capillary Refill : Height, Weight, BMI Height: 6'1.00" Weight: 188lbs. 0.0oz. 85.341423da; 24.00 BMI Method:Stated General Appearance: No Apparent Distress, Chronically ill Eyes: Bilateral Eye Normal Inspection, Bilateral Eye PERRL, Bilateral Eye EOMI HEENT: PERRL/EOMI, Normal ENT Inspection Neck: Non Tender, Supple Respiratory: Chest Non Tender, Lungs Clear Cardiovascular: Regular Rate, Rhythm, No Edema, Normal Peripheral Pulses Gastrointestinal: Non Tender, Soft Extremity: Normal Capillary Refill, Non Tender Neurologic/Psychiatric: Alert, No Motor/Sensory Deficits Skin: Normal Color, Warm/Dry Focused Exam Lactate Level 10/15/20 12:37: Lactic Acid Level 7.69*H 10/15/20 14:45: Lactic Acid Level 1.52 Lactic Acid Level Progress/Results/Core Measures Suspected Sepsis SIRS Temperature: Pulse: Respiratory Rate: Laboratory Tests 10/15/20 12:37: White Blood Count 6.7 Blood Pressure / Mean: 10/15/20 12:37: Lactic Acid Level 7.69*H 10/15/20 14:45: Lactic Acid Level 1.52 Laboratory Tests 10/15/20 12:37: Creatinine 1.85H, Platelet Count 408H, Total Bilirubin 1.7H 10/15/20 17:14: Creatinine 1.51H 10/15/20 19:56: Results/Orders Lab Results Laboratory Tests Test 10/15/20 12:37 10/15/20 13:30 10/15/20 14:45 10/15/20 17:14 Range/Units White Blood Count 6.7 4.3-11.0 10^3/uL Red Blood Count 4.06 L 4.35-5.85 10^6/uL Hemoglobin 11.5 L 13.3-17.7 G/DL Hematocrit 34 L 40-54 % Mean Corpuscular Volume 83 80-99 FL Mean Corpuscular Hemoglobin 28 25-34 PG Mean Corpuscular Hemoglobin Concent 34 32-36 G/DL Red Cell Distribution Width 16.1 H 10.0-14.5 % Platelet Count 408 H 130-400 10^3/uL Mean Platelet Volume 9.7 7.4-10.4 FL Immature Granulocyte % (Auto) 1 % Neutrophils (%) (Auto) 72 42-75 % Lymphocytes (%) (Auto) 18 12-44 % Monocytes (%) (Auto) 9 0-12 % Eosinophils (%) (Auto) 0 0-10 % Basophils (%) (Auto) 0 0-10 % Neutrophils # (Auto) 4.8 1.8-7.8 X 10^3 Lymphocytes # (Auto) 1.2 1.0-4.0 X 10^3 Monocytes # (Auto) 0.6 0.0-1.0 X 10^3 Eosinophils # (Auto) 0.0 0.0-0.3 10^3/uL Basophils # (Auto) 0.0 0.0-0.1 10^3/uL Immature Granulocyte # (Auto) 0.0 0.0-0.1 10^3/uL Neutrophils % (Manual) 54 % Lymphocytes % (Manual) 18 % Monocytes % (Manual) 10 % Eosinophils % (Manual) 0 % Basophils % (Manual) 0 % Band Neutrophils 18 % Sodium Level 130 L 131 L 135-145 MMOL/L Potassium Level 3.0 L 2.5 *L 3.6-5.0 MMOL/L Chloride Level 74 L 83 L 98-107 MMOL/L Carbon Dioxide Level 15 L 18 L 21-32 MMOL/L Anion Gap 41 H 30 H 5-14 MMOL/L Blood Urea Nitrogen 60 H 56 H 7-18 MG/DL Creatinine 1.85 H 1.51 H 0.60-1.30 MG/DL Estimat Glomerular Filtration Rate 38 48 BUN/Creatinine Ratio 32 37 Glucose Level 91 92 70-105 MG/DL Lactic Acid Level 7.69 *H 1.52 0.50-2.00 MMOL/L Calcium Level 7.8 L 6.7 L 8.5-10.1 MG/DL Corrected Calcium 8.5 8.5-10.1 MG/DL Magnesium Level 2.7 H 1.6-2.4 MG/DL Total Bilirubin 1.7 H 0.1-1.0 MG/DL Aspartate Amino Transf (AST/SGOT) 599 H 5-34 U/L Alanine Aminotransferase (ALT/SGPT) 323 H 0-55 U/L Alkaline Phosphatase 260 H 40-136 U/L Ammonia 82 H 11-32 UMOL/L Troponin I < 0.30 <0.30 NG/ML Total Protein 6.4 6.4-8.2 GM/DL Albumin 3.1 L 3.2-4.5 GM/DL Lipase 27 8-78 U/L Serum Alcohol < 10 <10 MG/DL Urine Color YELLOW Urine Clarity SLT CLOUDY Urine pH 5.5 5-9 Urine Specific [place] 1.025 H 1.016-1.022 Urine Protein 1+ H NEGATIVE Urine Glucose (UA) NEGATIVE NEGATIVE Urine Ketones 2+ H NEGATIVE Urine Nitrite NEGATIVE NEGATIVE Urine Bilirubin 2+ H NEGATIVE Urine Urobilinogen 0.2 < = 1.0 MG/DL Urine Leukocyte Esterase NEGATIVE NEGATIVE Urine RBC (Auto) 3+ H NEGATIVE Urine RBC 0-2 /HPF Urine WBC 5-10 H /HPF Urine Squamous Epithelial Cells NONE /HPF Urine Crystals PRESENT H /LPF Urine Amorphous Sediment FEW MARZENA URATES H /LPF Urine Bacteria MODERATE H /HPF Urine Casts PRESENT /LPF Urine Hyaline Casts 2-5 H /LPF Urine Mucus SMALL H /LPF Urine Culture Indicated YES Urine Opiates Screen NEGATIVE NEGATIVE Urine Oxycodone Screen NEGATIVE NEGATIVE Urine Methadone Screen NEGATIVE NEGATIVE Urine Propoxyphene Screen NEGATIVE NEGATIVE Urine Barbiturates Screen NEGATIVE NEGATIVE Ur Tricyclic Antidepressants Screen NEGATIVE NEGATIVE Urine Phencyclidine Screen NEGATIVE NEGATIVE Urine Amphetamines Screen NEGATIVE NEGATIVE Urine Methamphetamines Screen NEGATIVE NEGATIVE Urine Benzodiazepines Screen NEGATIVE NEGATIVE Urine Cocaine Screen NEGATIVE NEGATIVE Urine Cannabinoids Screen NEGATIVE NEGATIVE Test 10/15/20 19:56 Range/Units My Orders Orders - ENRICO LOUIS DO Ed Iv/Invasive Line Start (10/15/20 12:29) Cbc With Automated Diff (10/15/20 12:29) Ammonia (10/15/20 12:29) Alcohol (10/15/20 12:29) Comprehensive Metabolic Panel (10/15/20 12:29) Lactic Acid Analyzer (10/15/20 12:29) Lipase (10/15/20 12:29) Magnesium (10/15/20 12:29) Troponin I Fs (10/15/20 12:29) Urinalysis (10/15/20 12:29) Drug Screen Stat (Urine) (10/15/20 12:29) Lorazepam Injection (Ativan Injection) (10/15/20 12:30) Chest 1 View Ap/Pa Only (10/15/20 12:34) Ns Iv 1000 Ml (Sodium Chloride 0.9%) (10/15/20 12:45) Manual Differential (10/15/20 12:37) Urine Culture (10/15/20 13:30) Potassium Cl 10meq/50ml Ivpb (Kcl 10 Meq (10/15/20 14:00) Ct Head Wo (10/15/20 14:04) Lorazepam Injection (Ativan Injection) (10/15/20 15:45) Ns Iv 1000 Ml (Sodium Chloride 0.9%) (10/15/20 15:45) Lorazepam Injection (Ativan Injection) (10/15/20 16:15) Potassium Cl 10meq/50ml Ivpb (Kcl 10 Meq (10/15/20 16:30) Ns Iv 1000 Ml (Sodium Chloride 0.9%) (10/15/20 16:45) Basic Metabolic Panel (10/15/20 17:08) Potassium Cl 10meq/50ml Ivpb (Kcl 10 Meq (10/15/20 18:00) Norepinephrine 4 Mg/250 Ml (Norepinephri (10/15/20 18:30) Potassium Cl 10meq/50ml Ivpb (Kcl 10 Meq (10/15/20 18:45) Potassium Cl 10meq/50ml Ivpb (Kcl 10 Meq (10/15/20 19:45) Basic Metabolic Panel (10/15/20 19:41) Medications Given in ED Current Medications Medications Dose Ordered Sig/Ernie Route Start Time Stop Time Status Last Admin Dose Admin Lorazepam 0.5 mg ONCE ONCE IVP 10/15/20 15:45 10/15/20 15:46 DC 10/15/20 15:48 0.5 MG Lorazepam 1 mg ONCE ONCE IVP 10/15/20 12:30 10/15/20 12:31 DC 10/15/20 13:09 1 MG Lorazepam 1 mg ONCE ONCE IVP 10/15/20 16:15 10/15/20 16:16 DC 10/15/20 16:24 1 MG Potassium Chloride 50 ml @ 50 mls/hr ONCE ONCE IV 10/15/20 14:00 10/15/20 14:59 DC 10/15/20 14:11 50 MLS/HR Potassium Chloride 50 ml @ 50 mls/hr ONCE ONCE IV 10/15/20 16:30 10/15/20 17:29 DC 10/15/20 16:35 50 MLS/HR Potassium Chloride 50 ml @ 50 mls/hr ONCE ONCE IV 10/15/20 18:00 10/15/20 18:59 DC 10/15/20 18:15 50 MLS/HR Potassium Chloride 50 ml @ 50 mls/hr ONCE ONCE IV 10/15/20 18:45 10/15/20 19:44 DC 10/15/20 18:55 50 MLS/HR Potassium Chloride 50 ml @ 50 mls/hr ONCE ONCE IV 10/15/20 19:45 10/15/20 20:44 10/15/20 19:48 50 MLS/HR Vital Signs/I&O 10/15/20 12:52 Temp 35.4 Pulse 92 Resp 30 B/P (MAP) 93/48 (63) Pulse Ox 94 Capillary Refill : Progress Note : Time: 18:25 Progress Note Patient 6 hours in this ER as we wait for a bed to open up in [place]. Meanwhile, he has been stable, resting comfortably. Blood pressure has been low, but stable and responding to fluids w improvement in repeat labs w exception of further drop in K. Continuing to give IV K , 10meq / hour. Patient resting, easily aroused and without complaint. Oxygen sats @ 99-100% and without any respiratory distress. Still anticipating bed assignment to transfer to [facility]. Diagnostic Imaging Diagonstic Imaging: Xray Plain Films/CT/US/NM/MRI: chest Comments FINDINGS: Heart size and pulmonary vascularity are within normal limits. There is mild air trapping, bilaterally. There is focal increased density in left lung base with mild air bronchograms indicating focal infiltrate. No definite pleural fluid is seen. IMPRESSION: Left basilar infiltrate which may represent pneumonitis or pneumonia. PA and lateral views of chest would be useful for follow-up. Dictated on workstation # [id number] Dict: 10/15/20 1254 Trans: 10/15/20 1311 [facility] [id number] Interpreted by: GENE VICENTE MD Electronically signed by: Departure Communication (Admissions) Time/Spoke to Admitting Phy: 15:[address] RODRIGUEZ who accepts for admission to a "step down bed" Impression Primary Impression: Altered mental status Qualified Codes: R41.82 - Altered mental status, unspecified Additional Impressions: Dehydration Alcohol withdrawal delirium Hyponatremia Hypokalemia Disposition: 30 STILL A PATIENT Condition: Improved Admissions Decision to Admit Reason: Admit from ER (General) Decision to Admit/Date: Oct 15, 2020 Time/Decision to Admit Time: 15:30 Departure-Patient Inst. Referrals: [facility]/K (PCP/Family) Primary Care Physician ENRICO LOUIS DO Oct 15, 2020 12:29
[2020-10-15] MEDS ORDERED: LORazepam INJ 2 MG/ML (ATIVAN) VIAL IVP ONE ×3 (12:30→16:15)
[2020-10-15] MEDS ORDERED: NS IV 1000 ML 1,000 ML IV SCH (12:45)
[2020-10-15 12:53] LABS: HEMATOCRIT 34 % (40-54); HEMOGLOBIN 11.5 G/DL (13.3-17.7); MEAN CORPUSCULAR HEMOGLOBIN 28 PG (25-34); MEAN CORPUSCULAR HGB CONC 34 G/DL (32-36); MEAN CORPUSCULAR VOLUME 83 FL (80-99); PLATELET COUNT 408 10^3/uL (130-400); WHITE BLOOD COUNT 6.7 10^3/uL (4.3-11.0)
[2020-10-15 12:54] LABS: BASOPHILS % (AUTO) 0 % (0-10); EOSINOPHILS % (AUTO) 0 % (0-10); LYMPHOCYTES # (AUTO) 1.2 X 10^3 (1.0-4.0); LYMPHOCYTES % (AUTO) 18 % (12-44); MEAN PLATELET VOLUME 9.7 FL (7.4-10.4); MONOCYTES # (AUTO) 0.6 X 10^3 (0.0-1.0); MONOCYTES % (AUTO) 9 % (0-12); NEUTROPHILS # (AUTO) 4.8 X 10^3 (1.8-7.8); NEUTROPHILS % (AUTO) 72 % (42-75)
--- NOTE | 2020-10-15 13:12 | Diagnostic Imaging Report ---
INDICATION: Mental status change. EXAMINATION: Portable AP view of the chest is obtained. COMPARISON: No previous studies available at this time for comparison. FINDINGS: Heart size and pulmonary vascularity are within normal limits. There is mild air trapping, bilaterally. There is focal increased density in left lung base with mild air bronchograms indicating focal infiltrate. No definite pleural fluid is seen. IMPRESSION: Left basilar infiltrate which may represent pneumonitis or pneumonia. PA and lateral views of chest would be useful for follow-up. Dictated by: Dictated on workstation # [id number]
[2020-10-15 13:17] LABS: BAND NEUTROPHILS 18 %; BASOPHILS % (MANUAL) 0 %; EOSINOPHILS % (MANUAL) 0 %; LYMPHOCYTES % (MANUAL) 18 %; MONOCYTES % (MANUAL) 10 %; NEUTROPHILS % (MANUAL) 54 %
[2020-10-15 13:19] LABS: CARBON DIOXIDE 15 MMOL/L (21-32); CHLORIDE 74 MMOL/L (98-107); SODIUM 130 MMOL/L (135-145)
[2020-10-15 13:20] LABS: ALANINE AMINOTRANSFERASE 323 U/L (0-55); ALKALINE PHOSPHATASE 260 U/L (40-136); BILIRUBIN,TOTAL 1.7 MG/DL (0.1-1.0); BUN/CREATININE RATIO 32; CALCIUM 7.8 MG/DL (8.5-10.1); CREATININE SERUM 1.85 MG/DL (0.60-1.30); GFR ESTIMATED 38; GLUCOSE 91 MG/DL (70-105); MAGNESIUM 2.7 MG/DL (1.6-2.4); TOTAL PROTEIN 6.4 GM/DL (6.4-8.2)
[2020-10-15 13:21] LABS: ALBUMIN 3.1 GM/DL (3.2-4.5); LIPASE 27 U/L (8-78)
[2020-10-15 13:48] LABS: AMPHETAMINE SCREEN, URINE NEGATIVE (NEGATIVE); BARBITURATE SCREEN URINE NEGATIVE (NEGATIVE); BENZODIAZEPINES SCREEN URINE NEGATIVE (NEGATIVE); CANNABINOID SCREEN, URINE NEGATIVE (NEGATIVE); COCAINE SCREEN URINE NEGATIVE (NEGATIVE); METHADONE STAT NEGATIVE (NEGATIVE); METHAMPHETAMINE SCREEN URINE S NEGATIVE (NEGATIVE); OPIATE SCREEN URINE NEGATIVE (NEGATIVE); OXYCODONE STAT NEGATIVE (NEGATIVE); PROPOXYPHENE STAT NEGATIVE (NEGATIVE); TRICYCLIC ANTIDEPRESSANTS SCRE NEGATIVE (NEGATIVE)
[2020-10-15 13:53] LABS: BILIRUBIN,URINE 2+ (NEGATIVE); CLARITY,URINE SLT CLOUDY; COLOR,URINE YELLOW; GLUCOSE, URINE (UA) NEGATIVE (NEGATIVE); KETONES,URINE 2+ (NEGATIVE); LEUKOCYTE ESTERASE ,URINE NEGATIVE (NEGATIVE); NITRITE,URINE NEGATIVE (NEGATIVE); PH,URINE 5.5 (5-9); PROTEIN,URINE 1+ (NEGATIVE)
[2020-10-15 13:54] LABS: AMORPHOUS SEDIMENT,UR FEW AMOR URATES /LPF; BACTERIA,URINE MODERATE /HPF; RBC,URINE 0-2 /HPF
[2020-10-15] MEDS ORDERED: POTASSIUM CL 10MEQ/50ML IVPB 50 ML IV ONE ×5 (14:00→19:45)
--- NOTE | 2020-10-15 14:36 | Diagnostic Imaging Report ---
INDICATION: Mental status change TECHNIQUE: Routine non contrast-enhanced axial images were obtained from the skull base to the vertex. Auto Exposure Controls were utilized during the CT exam to meet ALARA standards for radiation dose reduction COMPARISON: 06/15/2020 FINDINGS: The ventricles and cortical sulci are diffusely prominent, compatible with age-related volume loss. There are confluent areas of abnormal, low attenuation in the periventricular white matter. This is consistent with small chronic small vessel ischemic changes. There is no midline shift or mass-effect. No acute intra-axial hemorrhage is seen. There are no abnormal areas of increased or decreased density to suggest acute hemorrhage or edema. No extra-axial masses or collections are present. The bony calvarium is intact. The visualized paranasal sinuses show mild scattered mucosal thickening and air-fluid level within the left maxillary sinus. The mastoid air cells are clear. IMPRESSION: 1. No acute intracranial abnormality. No CT evidence of mass, acute infarct or intracranial hemorrhage. 2. Paranasal sinus disease as described above. Please correlate for underlying acute sinusitis. Dictated by: Dictated on workstation # [id number]
[2020-10-15] MEDS: NS IV 1000 ML 1,000 ML IV SCH ×6 (15:48→22:48)
[2020-10-15 16:00] LABS: AMMONIA 82 UMOL/L (11-32)
--- NOTE | 2020-10-15 16:29 | NUR ---
PER FAMILY REQUEST THEY WANT HIS CHART KEPT CONFIDENTIAL. THE ONLY ONES THAT CAN HAVE ACCESS ARE BELLE MILLER, AND YVONNE (ALL DAUGHTERS). PASSCODE TO GET PATIENT INFORMATION IS "REFRESHED." DO NOT GIVE INFORMATION TO EX-GIRLFRIEND AUREA XIE. BELLE PINEDA [phone] PAUL FREED [phone] YVONNE [facility] [phone]
[2020-10-15 17:45] LABS: CALCIUM 6.7 MG/DL (8.5-10.1); CREATININE SERUM 1.51 MG/DL (0.60-1.30)
[2020-10-15 17:47] LABS: POTASSIUM 2.5 MMOL/L (3.6-5.0)
[2020-10-15 20:22] LABS: POTASSIUM 2.6 MMOL/L (3.6-5.0)
[2020-10-15 20:23] LABS: CALCIUM 6.6 MG/DL (8.5-10.1); CREATININE SERUM 1.39 MG/DL (0.60-1.30)
[2020-10-15 21:12] VITALS: BP 98/55
[2020-10-15] MEDS ORDERED: NS W/KCL 20 MEQ/L 1,000 ML IV ONE (21:15)
[2020-10-15] MEDS ORDERED: LORazepam INJ 2 MG/ML (ATIVAN) VIAL ONE (21:18)
[2020-10-15] MEDS: LORazepam INJ 2 MG/ML (ATIVAN) VIAL IVP PRN (21:24)
--- NOTE | 2020-10-15 22:05 | NUR ---
UPDATED DAUGHTER BELLE ON PT CONDITION.
[2020-10-15] MEDS: NOREPINEPHRINE 4 MG/250 ML 250 ML IV SCH (22:06)
[2020-10-15] MEDS: NS W/KCL 20 MEQ/L 1,000 ML IV SCH (22:06)
--- NOTE | 2020-10-15 22:29 | NUR ---
UPDATED PT DAUGHTER PAUL.
[2020-10-15 23:19] VITALS: BP 89/59
[2020-10-16] VITALS (8 sets, daily range): BP systolic 87–104; BP diastolic 50–66
--- NOTE | 2020-10-16 01:39 | NUR ---
NOTIFIED DR RODRIGUEZ OF CHANGE IN PT CONDITION. PT INCREASED RR WITH PRODUCTIVE COUGH, O2 SATS DECREASING INTO LOW 80'S, BP 96/59 P 87, AFEBRILE-ATTEMPTED OXYMASK AT 15L-WENT TO VAPOTHERM 28L 75%. PT CONTINUES TO BE CONFUSED AND HALLUCINATING. ORDERS FOR ABG AND START ZOSYN.
[2020-10-16 01:58] LABS: ABG OXYGEN SATURATION 97 % (94-100); ABG PCO2 27 MMHG (35-45); ABG PH 7.48 (7.37-7.43); ABG PO2 94 MMHG (79-93); ABG TCO2 20.7 MMOL/L (21.0-31.0)
[2020-10-16 01:59] LABS: ALLENS TEST POSITIVE; INSPIRED O2 RA; PATIENT TEMP 37.6; VENTILATOR NO
[2020-10-16] MEDS ORDERED: NS (IVPB) 100 ML ONE (01:59)
[2020-10-16] MEDS ORDERED: PIPERACILLIN/TAZO 4.5 GM VIAL (ZOSYN) IV ONE (01:59)
[2020-10-16] MEDS: LORazepam INJ 2 MG/ML (ATIVAN) VIAL IVP PRN (02:09)
[2020-10-16] MEDS ORDERED: PIPERACILLIN/TAZOBACTAM (BULK) 4.5 GM in NS (IVPB) 100 ML IV ONE (02:30)
[2020-10-16] MEDS ORDERED: ANTACID SUSP 30 ML UDC (MYLANTA) PO PRN (03:15)
[2020-10-16] MEDS ORDERED: SENNA W/DOCUSATE (SENOKOT S) TABLET PO PRN (03:15)
[2020-10-16] MEDS ORDERED: 1/2 NS IV SOLUTION 1,000 ML IV PRN (03:15)
[2020-10-16] MEDS ORDERED: LORazepam 1 MG (ATIVAN) TAB PO PRN (03:15)
[2020-10-16] MEDS ORDERED: ONDANSETRON 4 MG/2 ML (SDV) Z0FRAN IV PRN (03:15)
[2020-10-16] MEDS ORDERED: ONDANSETRON 4 MG (ZOFRAN) ORAL DISSOLVE TAB SL PRN (03:15)
[2020-10-16] MEDS ORDERED: D5 1/2 NS 1000 ML IV SOLUTION 1,000 ML IV PRN (03:15)
[2020-10-16] MEDS ORDERED: LORazepam INJ 2 MG/ML (ATIVAN) VIAL IM/IV PRN (03:15)
[2020-10-16] MEDS: NOREPINEPHRINE 4 MG/250 ML 250 ML IV SCH ×3 (03:17→20:44)
[2020-10-16] MEDS: LORazepam INJ 2 MG/ML (ATIVAN) VIAL IV PRN ×6 (03:27→22:45)
[2020-10-16 03:52] LABS: BASOPHILS % (AUTO) 0 % (0-10); EOSINOPHILS % (AUTO) 0 % (0-10); HEMATOCRIT 27 % (40-54); HEMOGLOBIN 9.3 g/dL (13.3-17.7); LYMPHOCYTES % (AUTO) 19 % (12-44); MEAN CORPUSCULAR HEMOGLOBIN 29 pg (25-34); MEAN CORPUSCULAR HGB CONC 35 g/dL (32-36); MEAN CORPUSCULAR VOLUME 82 fL (80-99); MEAN PLATELET VOLUME 9.4 fL (9.0-12.2); MONOCYTES # (AUTO) 0.4 10^3/uL (0.0-1.0); MONOCYTES % (AUTO) 8 % (0-12); NEUTROPHILS # (AUTO) 3.6 10^3/uL (1.8-7.8); NEUTROPHILS % (AUTO) 71 % (42-75); PLATELET COUNT 329 10^3/uL (130-400); WHITE BLOOD COUNT 5.1 10^3/uL (4.3-11.0)
[2020-10-16 04:10] LABS: ALBUMIN 2.5 GM/DL (3.2-4.5)
[2020-10-16 04:11] LABS: CHLORIDE 96 MMOL/L (98-107); SODIUM 137 MMOL/L (135-145)
[2020-10-16 04:12] LABS: CALCIUM 7.1 MG/DL (8.5-10.1)
[2020-10-16 04:13] LABS: GLUCOSE 69 MG/DL (70-105); TOTAL PROTEIN 5.3 GM/DL (6.4-8.2)
[2020-10-16 04:14] LABS: CARBON DIOXIDE 19 MMOL/L (21-32)
[2020-10-16 04:15] LABS: BILIRUBIN,TOTAL 1.3 MG/DL (0.1-1.0)
[2020-10-16 04:16] LABS: ALKALINE PHOSPHATASE 174 U/L (40-136)
[2020-10-16 04:17] LABS: CREATININE SERUM 1.18 MG/DL (0.60-1.30); GFR ESTIMATED > 60
[2020-10-16 04:18] LABS: BUN/CREATININE RATIO 32
[2020-10-16 04:20] LABS: ALANINE AMINOTRANSFERASE 242 U/L (0-55)
[2020-10-16] MEDS: NS W/KCL 20 MEQ/L 1,000 ML IV SCH ×3 (04:20→17:00)
[2020-10-16 04:24] LABS: POTASSIUM 2.5 MMOL/L (3.6-5.0)
--- NOTE | 2020-10-16 04:57 | NUR ---
UPDATED PT DAUGHTER PAUL AT THIS TIME
[2020-10-16] MEDS ORDERED: NS IV 1000 ML 1,000 ML ONE (05:27)
[2020-10-16] MEDS ORDERED: POTASSIUM CL 10MEQ/50ML IVPB 200 ML IV ONE (05:27)
[2020-10-16] MEDS: POTASSIUM CL 10MEQ/50ML IVPB 50 ML IV SCH ×10 (05:30→22:00)
--- NOTE | 2020-10-16 08:38 | Diagnostic Imaging Report ---
INDICATION: Alcohol withdrawal, dehydration, and altered mental status. TECHNIQUE/COMPARISON: A frontal chest was obtained at 8:23 AM and compared to 10/15/2020. FINDINGS: The heart is borderline in size. There are worsening bibasilar infiltrates compared to the previous study. There is no pneumothorax or gross pleural fluid. IMPRESSION: Worsening bibasilar infiltrates compared to 10/15/2020. Dictated by: Dictated on workstation # [id number]
[2020-10-16] MEDS: PIPERACILLIN/TAZOBACTAM (BULK) 4.5 GM in NS (IVPB) 100 ML IV SCH ×2 (10:23→16:44)
--- NOTE | 2020-10-16 10:32 | NUR ---
CM/SS: Telephone call to Carolina, daughter of pt - [phone] - left message to call this worker back as her convenience.
--- NOTE | 2020-10-16 14:45 | NUR ---
DR RODRIGUEZ NOTIFIED THIS NURSE PT WILL NEED TO HAVE HIS POTASSIUM RECHECKED AND REPLACED. ORDER GIVEN TO REPEAT BMP AND REPLACE POTASSIUM PER PROTOCOL. SEE ORDER HX. Addendum: 10/16/20 at 1730 by ARTEM MCKEON RN DR RODRIGUEZ NOTIFIED THIS NURSE TO REPLACE PER PROTOCOL. NO NEED TO CALL DR RODRIGUEZ WITH POTASSIUM RESULTS.
--- NOTE | 2020-10-16 14:50 | History & Physical ---
HPI History of Present Illness: 60 yo M with extensive alcohol history that presented with altered mental status. Family states that he had been sober for about 60 days prior to 2 weeks ago and then went on binge and has been drinking heavily for the last 2 weeks. Patient is unable to give any history. Family is not sure if he has fell or hit his head but arms are covered in bruising Source: family Exam Limitations: clinical condition Date seen by provider: Oct 16, 2020 Time Seen by Provider: 08:45 Attending Physician Arsen Plascencia MD [facility], Later [facility] Consult Date of Admission Oct 15, 2020 at 20:50 Home Medications Home Medications Reviewed patient Home Medication Reconciliation performed by pharmacy medication reconciliations prepress technician and/or nursing. Patients Allergies have been reviewed. Allergies Coded Allergies: No Known Drug Allergies (Unverified , 10/16/20) [facility] Hx Patient Social History Drug of Choice: marijuana Smoking Status: Former Smoker 2nd Hand Smoke Exposure: No Recent Hopitalizations: Yes Alcohol Use?: Yes Have you traveled recently?: Unable to obtain Immunizations Up To Date Tetanus Booster (TDap): Less than 5yrs Past Medical History PMHx: Alcoholism SurgHx: Neck/back fracture surgery Family Medical History Significant Family History: Hypertension Family History: Patient reports no known family medical history. Review of Systems ([facility]) Constitutional: other Other Unable to obtained due to altered mental status Reviewed Test Results Reviewed Test Results Lab Laboratory Tests Test 10/15/20 17:14 10/15/20 19:56 10/16/20 01:52 10/16/20 03:10 Range/Units Sodium Level 131 L 133 L 137 135-145 MMOL/L Potassium Level 2.5 *L 2.6 L 2.5 *L 3.6-5.0 MMOL/L Chloride Level 83 L 87 L 96 L 98-107 MMOL/L Carbon Dioxide Level 18 L 19 L 19 L 21-32 MMOL/L Anion Gap 30 H 27 H 22 H 5-14 MMOL/L Blood Urea Nitrogen 56 H 50 H 38 H 7-18 MG/DL Creatinine 1.51 H 1.39 H 1.18 0.60-1.30 MG/DL Estimat Glomerular Filtration Rate 48 52 > 60 BUN/Creatinine Ratio 37 36 32 Glucose Level 92 91 69 L 70-105 MG/DL Calcium Level 6.7 L 6.6 L 7.1 L 8.5-10.1 MG/DL Blood Gas Puncture Site RIGHT RADIAL Blood Gas Patient Temperature 37.6 Arterial Blood pH 7.48 H 7.37-7.43 Arterial Blood Partial Pressure CO2 27 L 35-45 MMHG Arterial Blood Partial Pressure O2 94 H 79-93 MMHG Arterial Blood HCO3 20 L 23-27 MMOL/L Arterial Blood Total CO2 20.7 L 21.0-31.0 MMOL/L Arterial Blood Oxygen Saturation 97 94-100 % Arterial Blood Base Excess -3.0 L -2.5-2.5 MMOL/L Gautam Test POSITIVE Blood Gas Ventilator Setting NO Blood Gas Inspired Oxygen RA White Blood Count 5.1 4.3-11.0 10^3/uL Red Blood Count 3.24 L 4.30-5.52 10^6/uL Hemoglobin 9.3 L 13.3-17.7 g/dL Hematocrit 27 L 40-54 % Mean Corpuscular Volume 82 80-99 fL Mean Corpuscular Hemoglobin 29 25-34 pg Mean Corpuscular Hemoglobin Concent 35 32-36 g/dL Red Cell Distribution Width 16.1 H 10.0-14.5 % Platelet Count 329 130-400 10^3/uL Mean Platelet Volume 9.4 9.0-12.2 fL Immature Granulocyte % (Auto) 1 % Neutrophils (%) (Auto) 71 42-75 % Lymphocytes (%) (Auto) 19 12-44 % Monocytes (%) (Auto) 8 0-12 % Eosinophils (%) (Auto) 0 0-10 % Basophils (%) (Auto) 0 0-10 % Neutrophils # (Auto) 3.6 1.8-7.8 10^3/uL Lymphocytes # (Auto) 1.0 1.0-4.0 10^3/uL Monocytes # (Auto) 0.4 0.0-1.0 10^3/uL Eosinophils # (Auto) 0.0 0.0-0.3 10^3/uL Basophils # (Auto) 0.0 0.0-0.1 10^3/uL Immature Granulocyte # (Auto) 0.0 0.0-0.1 10^3/uL Corrected Calcium 8.3 L 8.5-10.1 MG/DL Total Bilirubin 1.3 H 0.1-1.0 MG/DL Aspartate Amino Transf (AST/SGOT) 311 H 5-34 U/L Alanine Aminotransferase (ALT/SGPT) 242 H 0-55 U/L Alkaline Phosphatase 174 H 40-136 U/L Total Protein 5.3 L 6.4-8.2 GM/DL Albumin 2.5 L 3.2-4.5 GM/DL Physical Exam-([facility]) Physical Exam Vital Signs VS - Last 72 Hours, by Label 10/15/20 10/15/20 10/15/20 10/15/20 12:52 20:06 21:00 21:08 Temp 35.4 Pulse 92 85 89 Resp 30 26 B/P (MAP) 93/48 (63) 85/48 Pulse Ox 94 100 O2 Delivery Room Air Nasal Cannula O2 Flow Rate 2.00 10/15/20 10/15/20 10/15/20 10/16/20 21:12 21:14 23:19 01:00 Temp 37.4 37.3 Pulse 80 88 91 Resp 20 24 B/P (MAP) 98/55 (69) 89/59 (69) Pulse Ox 92 96 O2 Delivery Nasal Cannula Nasal Cannula O2 Flow Rate 2.00 2.00 10/16/20 10/16/20 10/16/20 10/16/20 01:40 03:48 04:09 05:46 Temp 36.6 Pulse 90 Resp 20 B/P (MAP) 90/66 (74) Pulse Ox 92 97 O2 Delivery Vapotherm Vapotherm Vapotherm Vapotherm O2 Flow Rate 28.00 28.00 28.00 20.00 75.00 60.00 60.00 FiO2 75 10/16/20 10/16/20 10/16/20 10/16/20 06:29 06:50 07:45 08:00 Temp 36.5 Pulse 91 82 Resp 21 B/P (MAP) 96/60 (72) Pulse Ox 94 92 95 O2 Delivery Vapotherm Vapotherm Vapotherm O2 Flow Rate 20.00 28.00 75.00 FiO2 60 60 10/16/20 10/16/20 12:45 14:15 Pulse 80 B/P (MAP) 92/51 (65) Pulse Ox 94 O2 Delivery Vapotherm O2 Flow Rate 30.00 60.00 Capillary Refill : Less Than 3 Seconds General Appearance: moderate distress Respiratory: respiratory distress, crackles, wheezing Cardiovascular: normal peripheral pulses, no murmur, tachycardia Gastrointestinal: normal bowel sounds, non tender, soft; No guarding, No rebound Extremities: no pedal edema, no calf tenderness, normal capillary refill Neurologic/Psychiatric: disoriented x 3, other (moving all extremities) Skin: other (bruising present on bilateral UE) Lymphatic: no adenopathy Assessment/Plan Assessment/Plan Admission Status: Inpatient Order (span 2 midnights) Reason for Inpatient Admission: Requiring close monitoring and IV antibiotics (1) Altered mental status Status: Acute Assessment & Plan: - Sepsis vs EtOH withdraw vs Ammonia, continue to monitor Qualifiers: Qualified Codes: R41.82 - Altered mental status, unspecified (2) Acute and chronic respiratory failure with hypoxia Status: Acute Assessment & Plan: - Vapotherm, MAT protocol added, Consulted and spoke to Dr Figueroa to see patient (3) Acute renal failure Status: Acute Assessment & Plan: - Likely 2/2 to profound dehydration, continue to monitor (4) Alcohol withdrawal Status: Acute Assessment & Plan: - CIWS, Sz precautions, Start bananna bag, IV ativan PRN Qualifiers: Qualified Codes: F10.231 - Alcohol dependence with withdrawal delirium (5) Normocytic anemia Status: Acute Assessment & Plan: - No signs of acute bleeding, continue to monitor (6) Elevated liver enzymes Status: Chronic (7) Hypokalemia Status: Acute Assessment & Plan: - Replace and repeat BMP (8) Hyponatremia Status: Acute (9) DVT prophylaxis Status: Acute Assessment & Plan: - SCDs ARSEN PLASCENCIA MD Oct 16, 2020 14:50
[2020-10-16 15:23] LABS: BUN/CREATININE RATIO 24; CALCIUM 7.2 MG/DL (8.5-10.1); CARBON DIOXIDE 22 MMOL/L (21-32); CHLORIDE 103 MMOL/L (98-107); GFR ESTIMATED > 60; GLUCOSE 78 MG/DL (70-105); SODIUM 143 MMOL/L (135-145)
[2020-10-16 15:35] LABS: POTASSIUM 2.4 MMOL/L (3.6-5.0)
--- NOTE | 2020-10-16 16:06 | Pulmonary Consultation ---
History of Present Illness History of Present Illness Date Seen by Provider: Oct 16, 2020 Time Seen by Provider: 16:02 Date of Admission Allergies and Home Medications Allergies Coded Allergies: No Known Drug Allergies (Unverified , 10/16/20) Home Medications Aspirin 81 Mg Tablet.dr, 81 MG PO DAILY, (Reported) Biotin 10,000 Mcg Capsule, 10,000 MCG PO DAILY, (Reported) Multivitamin 1 Each Tablet, 1 EACH PO DAILY, (Reported) Past Ebxxdyi-Bxuknf-Jbvdcf Hx Past Med/Social Hx: Reviewed Nursing Past Med/Soc Hx Patient Social History Alcohol Use: Denies Use Number of Drinks Today: II Alcohol Beverage of Choice: Beer, Wine, Other Drug of Choice: marijuana Smoking Status: Former Smoker Type Used: Cigarettes Former Smoker, Quit: May 04, 2018 2nd Hand Smoke Exposure: No Recent Infectious Disease Expo: No Recent Hopitalizations: Yes Have you traveled recently?: Unable to obtain Alcohol Use?: Yes Immunizations Up To Date Tetanus Booster (TDap): Less than 5yrs Seasonal Allergies Seasonal Allergies: No Past Medical History Surgeries: Yes (INGUINAL HERNIA REPAIR;BILAT CLAVICLE FX/ORIF;C-SPINE FX/FUSION AGE 17) Abdominal, Orthopedic Respiratory: No Cardiac: No Neurological: Yes (HEPATIC ENCEPHALOPATHY) Genitourinary: No Gastrointestinal: Yes (S/P INGUINAL HERNIA REPAIR;HEPATIC ENCEPHALOPATHY) Abdominal Hernia, Liver Disease/Jaundice Musculoskeletal: Yes (C-SPINE FRACTURE /ORIF AGE 17; BILAT CLAVICLE FX/ORIF) Fractures Endocrine: No HEENT: No Cancer: No Psychosocial: Yes (SUICIDAL IDEATION, ALCOHOLISM) Anxiety, Depression Integumentary: No Blood Disorders: No Adverse Reaction/Blood Tranf: No Family Medical History Patient reports no known family medical history. Hypertension Review of Systems Time Seen by Provider: 16:06 Sepsis Event Evaluation Height, Weight, BMI Height: 6'1.00" Weight: 188lbs. 0.0oz. 85.069053nk; 25.96 BMI Method:Stated Exam Exam Vital Signs Date Time Temp Pulse Resp B/P (MAP) Pulse Ox O2 Delivery O2 Flow Rate FiO2 10/16/20 15:59 95 Vapotherm 30.00 50 10/16/20 15:34 36.8 89 19 96/63 (74) 93 Vapotherm 30.00 60.00 10/16/20 14:15 92/51 (65) 94 Vapotherm 30.00 60.00 10/16/20 12:45 80 10/16/20 12:00 37.3 80 16 87/50 (62) 98 Vapotherm 28.00 75.00 10/16/20 08:00 36.5 82 21 96/60 (72) 95 Vapotherm 28.00 75.00 10/16/20 07:45 92 Vapotherm 60 10/16/20 06:50 94 Vapotherm 20.00 60 10/16/20 06:29 91 10/16/20 05:46 Vapotherm 20.00 60.00 10/16/20 04:09 Vapotherm 28.00 60.00 10/16/20 03:48 36.6 90 20 90/66 (74) 97 Vapotherm 28.00 75.00 10/16/20 01:40 92 Vapotherm 28.00 75 10/16/20 01:00 91 10/15/20 23:19 37.3 88 24 89/59 (69) 96 Nasal Cannula 2.00 10/15/20 21:14 37.4 10/15/20 21:12 80 20 98/55 (69) 92 Nasal Cannula 2.00 10/15/20 21:08 89 10/15/20 21:00 Nasal Cannula 2.00 10/15/20 20:06 85 26 85/48 100 Room Air I & O 10/16/20 07:00 Intake Total 3325 ml Balance 3325 ml Height & Weight Height: 6'1.00" Weight: 188lbs. 0.0oz. 85.672948uk; 25.96 BMI Method:Stated General Appearance: No Apparent Distress, Chronically ill HEENT: PERRL/EOMI, Normal ENT Inspection Neck: Non Tender, Supple Respiratory: Chest Non Tender, Lungs Clear Cardiovascular: Regular Rate, Rhythm, No Edema, Normal Peripheral Pulses Capillary Refill: Less Than 3 Seconds Gastrointestinal: normal bowel sounds, non tender, soft; No guarding, No rebound Extremity: Normal Capillary Refill, Non Tender Neurologic/Psychiatric: Alert, No Motor/Sensory Deficits Skin: Normal Color, Warm/Dry Results Lab Laboratory Tests 10/15/20 12:37 10/15/20 17:14 10/15/20 19:56 10/16/20 03:10 10/16/20 15:00 Assessment/Plan Assessment/Plan Acute on chronic respiratory failure -Check ABG -Oxygen - currently on Vapotherm -Labs and radiology reviewed Metabolic encephalopathy -Monitor Hx of alcohol dependance -[facility]A protocol Acute renal failure Anemia -Monitor Hypokalemia -Dr. Plascencia managing FANTA MILLER DO Oct 16, 2020 16:06
[2020-10-16] MEDS: THIAMINE INJECTION 100 MG, FOLIC ACID INJECTION 1 MG, VITAMIN MULTI INJECTION 10 ML, MA... IV SCH ×5 (16:38)
--- NOTE | 2020-10-16 16:38 | NUR ---
CM/SS: Telephone Call - to [place] [phone] - daughter of pt. 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 Daughter is able to give some information to this worker as to some of pt's history related to alcohol use and him having been in alcohol treatment before. Daughter also expressed concern for pt related to his pt having hallucinations and paranoia. This may be related to alcohol use, however she does indicate that he had a psyc stay in the past. Pt currently lives at [address] [place] [address] in [place] - pt lives behind daughter. Daughter is encouraged to call with questions. She is also given an update on patients current status. This worker will follow up. TROY Lock is notified of the call to daughter.
[2020-10-16] MEDS: RT-ALBUTEROL/IPRATROPIUM 3 ML (DUONEB) VIAL INH SCH ×2 (19:14→21:39)
[2020-10-16] MEDS ORDERED: RT-ALBUTEROL/IPRATROPIUM 3 ML (DUONEB) VIAL INH PRN (20:00)
[2020-10-17] VITALS (21 sets, daily range): BP systolic 75–109; BP diastolic 44–72
[2020-10-17] MEDS: LORazepam INJ 2 MG/ML (ATIVAN) VIAL IV PRN ×5 (00:11→07:03)
[2020-10-17] MEDS: PIPERACILLIN/TAZOBACTAM (BULK) 4.5 GM in NS (IVPB) 100 ML IV SCH ×3 (00:30→15:31)
[2020-10-17] MEDS: NS W/KCL 20 MEQ/L 1,000 ML IV SCH ×4 (00:54→20:12)
[2020-10-17 01:12] LABS: BASOPHILS % (AUTO) 0 % (0-10); EOSINOPHILS % (AUTO) 0 % (0-10); HEMATOCRIT 26 % (40-54); HEMOGLOBIN 9.3 g/dL (13.3-17.7); LYMPHOCYTES # (AUTO) 1.1 10^3/uL (1.0-4.0); LYMPHOCYTES % (AUTO) 16 % (12-44); MEAN CORPUSCULAR HEMOGLOBIN 29 pg (25-34); MEAN CORPUSCULAR HGB CONC 35 g/dL (32-36); MEAN CORPUSCULAR VOLUME 84 fL (80-99); MEAN PLATELET VOLUME 8.9 fL (9.0-12.2); MONOCYTES # (AUTO) 0.4 10^3/uL (0.0-1.0); MONOCYTES % (AUTO) 6 % (0-12); NEUTROPHILS # (AUTO) 5.3 10^3/uL (1.8-7.8); NEUTROPHILS % (AUTO) 76 % (42-75); PLATELET COUNT 343 10^3/uL (130-400)
[2020-10-17 01:23] LABS: ALBUMIN 2.4 GM/DL (3.2-4.5); CHLORIDE 103 MMOL/L (98-107); SODIUM 142 MMOL/L (135-145)
[2020-10-17 01:24] LABS: CALCIUM 7.6 MG/DL (8.5-10.1)
[2020-10-17 01:25] LABS: GLUCOSE 164 MG/DL (70-105); TOTAL PROTEIN 5.2 GM/DL (6.4-8.2)
[2020-10-17 01:26] LABS: CARBON DIOXIDE 26 MMOL/L (21-32)
[2020-10-17 01:27] LABS: BILIRUBIN,TOTAL 0.7 MG/DL (0.1-1.0)
[2020-10-17 01:28] LABS: ALKALINE PHOSPHATASE 172 U/L (40-136)
[2020-10-17 01:29] LABS: CREATININE SERUM 0.93 MG/DL (0.60-1.30); GFR ESTIMATED > 60
[2020-10-17 01:30] LABS: BUN/CREATININE RATIO 16
[2020-10-17 01:32] LABS: ALANINE AMINOTRANSFERASE 194 U/L (0-55)
[2020-10-17] MEDS ORDERED: POTASSIUM CL 10MEQ/50ML IVPB 200 ML IV ONE (01:37)
[2020-10-17 01:38] LABS: POTASSIUM 2.4 MMOL/L (3.6-5.0)
[2020-10-17] MEDS: POTASSIUM CL 10MEQ/50ML IVPB 50 ML IV SCH ×14 (01:45→23:02)
[2020-10-17] MEDS: RT-ALBUTEROL/IPRATROPIUM 3 ML (DUONEB) VIAL INH SCH ×6 (02:10→22:09)
[2020-10-17] MEDS: KCL 20 MEQ TAB (K-DUR) PO SCH (04:49)
[2020-10-17] MEDS: MAGNESIUM 1 GM/100 ML IVPB 100 ML IV SCH (04:49)
[2020-10-17] MEDS: NOREPINEPHRINE 4 MG/250 ML 250 ML IV SCH ×3 (04:49→23:02)
--- NOTE | 2020-10-17 05:41 | Pulmonary Progress Note ---
Subjective Time Seen by a Provider: 05:40 Subjective/Events-last exam Pt is agitated Sepsis Event Evaluation Height, Weight, BMI Height: 6'1.00" Weight: 188lbs. 0.0oz. 85.229327xe; 25.96 BMI Method:Stated Focused Exam Lactate Level 10/15/20 12:37: Lactic Acid Level 7.69*H 10/15/20 14:45: Lactic Acid Level 1.52 Exam Exam Vital Signs Date Time Temp Pulse Resp B/P (MAP) Pulse Ox O2 Delivery O2 Flow Rate FiO2 10/17/20 04:30 37.0 99 20 100/57 (71) 91 Vapotherm 20.00 50.00 10/17/20 02:13 90 Vapotherm 20.00 45 10/17/20 01:00 90 10/16/20 23:37 37.2 87 22 104/65 (78) 96 Vapotherm 20.00 45.00 10/16/20 21:39 95 Vapotherm 30.00 50 10/16/20 20:00 Vapotherm 30.00 50 10/16/20 19:15 36.8 85 20 102/59 (73) 94 Vapotherm 30.00 50.00 10/16/20 19:12 95 Vapotherm 30.00 50 10/16/20 19:00 82 10/16/20 16:09 36.8 92 93 60 10/16/20 15:59 95 Vapotherm 30.00 50 10/16/20 15:34 36.8 89 19 96/63 (74) 93 Vapotherm 30.00 60.00 10/16/20 14:15 92/51 (65) 94 Vapotherm 30.00 60.00 10/16/20 12:45 80 10/16/20 12:00 37.3 80 16 87/50 (62) 98 Vapotherm 28.00 75.00 10/16/20 08:00 36.5 82 21 96/60 (72) 95 Vapotherm 28.00 75.00 10/16/20 07:45 92 Vapotherm 60 10/16/20 06:50 94 Vapotherm 20.00 60 10/16/20 06:29 91 10/16/20 05:46 Vapotherm 20.00 60.00 I & O 10/17/20 07:00 Intake Total 50 ml Output Total 2400 ml Balance -2350 ml Height & Weight Height: 6'1.00" Weight: 188lbs. 0.0oz. 85.205905vi; 25.96 BMI Method:Stated General Appearance: No Apparent Distress, Anxious, Chronically ill HEENT: PERRL/EOMI, Normal ENT Inspection Neck: Non Tender, Supple Respiratory: Chest Non Tender, Crackles, Decreased Breath Sounds Cardiovascular: Regular Rate, Rhythm, No Edema, Normal Peripheral Pulses Capillary Refill: Less Than 3 Seconds Gastrointestinal: normal bowel sounds, non tender, soft; No guarding, No rebound Extremity: Normal Capillary Refill, Non Tender Neurologic/Psychiatric: Alert, No Motor/Sensory Deficits Skin: Normal Color, Warm/Dry Results Lab Laboratory Tests 10/15/20 12:37 10/15/20 17:14 10/15/20 19:56 10/16/20 03:10 10/16/20 15:00 10/17/20 01:05 Assessment/Plan Assessment/Plan Acute on chronic respiratory failure -Oxygen - currently on Vapotherm -Repeat ABG -Labs and radiology reviewed Metabolic encephalopathy -Monitor -repeat ammonia level -Start lactulose and Rifaxamine Hx of alcohol dependance -CIWA protocol Acute renal failure Anemia -Monitor Hypokalemia -Replace and check mag and phos -Repeat Labs after replacement. Transfer to ICU and start Precedex gtt. FANTA MILLER DO Oct 17, 2020 05:41
[2020-10-17] MEDS ORDERED: POTASSIUM CL 10MEQ/50ML IVPB 50 ML IV SCH (05:45)
[2020-10-17 06:04] LABS: MAGNESIUM 2.4 MG/DL (1.6-2.4)
[2020-10-17] MEDS ORDERED: LACTULOSE 10 GM/15 ML 30 ML POUR BOTTLE FOR ENEMA PR SCH ×2 (06:15→09:00)
[2020-10-17] MEDS ORDERED: PANTOPRAZOLE 40 MG (PROTONIX) VIAL IV SCH (06:15)
[2020-10-17 06:20] LABS: PHOSPHORUS 0.8 MG/DL (2.3-4.7)
[2020-10-17 06:48] LABS: ALBUMIN 2.3 GM/DL (3.2-4.5); CHLORIDE 103 MMOL/L (98-107); SODIUM 142 MMOL/L (135-145)
[2020-10-17 06:49] LABS: AMMONIA 20 UMOL/L (11-32); CALCIUM 7.4 MG/DL (8.5-10.1)
[2020-10-17 06:50] LABS: GLUCOSE 134 MG/DL (70-105); TOTAL PROTEIN 5.1 GM/DL (6.4-8.2)
[2020-10-17 06:51] LABS: CARBON DIOXIDE 27 MMOL/L (21-32)
[2020-10-17 06:52] LABS: BILIRUBIN,TOTAL 0.7 MG/DL (0.1-1.0)
[2020-10-17] MEDS ORDERED: LACTATED RINGERS 1,000 ML IV ONE ×2 (06:53→12:45)
[2020-10-17 06:54] LABS: ALKALINE PHOSPHATASE 168 U/L (40-136); CREATININE SERUM 0.84 MG/DL (0.60-1.30); GFR ESTIMATED > 60
[2020-10-17 06:55] LABS: BUN/CREATININE RATIO 14
--- NOTE | 2020-10-17 06:55 | Diagnostic Imaging Report ---
INDICATION: Dyspnea Single AP view of the chest is obtained with comparison made to study of 10/16/2020. Heart size and pulmonary vascularity are within normal limits. Bilateral perihilar infiltrates have shown slight improvement. There is continued blunting of the costophrenic sulci. No new infiltrate is detected. IMPRESSION: Continued bilateral pulmonary infiltrates and possible mild pleural fluid with mild interval improvement. Dictated by: Dictated on workstation # [id number]
[2020-10-17 06:57] LABS: ALANINE AMINOTRANSFERASE 180 U/L (0-55)
[2020-10-17] MEDS: DexMEDEtomidine PRE MIX 100 ML IV SCH ×4 (06:59→21:20)
[2020-10-17] MEDS: LACTULOSE SYRUP 10GM/15ML (ENULOSE) 30ML UDC PO SCH ×3 (07:00→13:32)
[2020-10-17] MEDS: RIFAXIMIN 550 MG TABLET (XIFAXAN) PO SCH ×3 (07:00→21:27)
[2020-10-17] MEDS ORDERED: morphine INJ 4 MG/ML 1 ML (VIAL/SYRINGE) IVP PRN (07:00)
[2020-10-17 07:02] LABS: POTASSIUM 2.5 MMOL/L (3.6-5.0)
[2020-10-17] MEDS: LACTATED RINGERS 1,000 ML IV SCH ×3 (07:06→20:11)
[2020-10-17] MEDS: SPIRONOLACTONE 25 MG (ALDACTONE) TAB PO SCH ×2 (07:22→08:21)
[2020-10-17 07:37] LABS: ABG BASE EXCESS 4.3 MMOL/L (-2.5-2.5); ABG OXYGEN SATURATION 96 % (94-100); ABG PCO2 38 MMHG (35-45); ABG PH 7.47 (7.37-7.43); ABG PO2 78 MMHG (79-93); ABG TCO2 29.1 MMOL/L (21.0-31.0)
[2020-10-17 07:38] LABS: ALLENS TEST YES-POS
[2020-10-17 07:39] LABS: INSPIRED O2 20L 45%; PATIENT TEMP 36.9; VENTILATOR NO
--- NOTE | 2020-10-17 07:53 | NUR ---
labs results given to dr gallegos.
[2020-10-17] MEDS: PANTOPRAZOLE 40 MG (PROTONIX) VIAL IV SCH (08:14)
--- NOTE | 2020-10-17 09:24 | NUR ---
PT HAS DECREASED BP AND HAD TO INCREASE VAPOTHERM SETTINGS SINCE THIS RN ASSUMED CARE OF PT. DR MILLER NOTIFIED. NEW ORDERS RECEIVED.
[2020-10-17] MEDS ORDERED: LACTATED RINGERS 1,000 ML IV SCH (09:30)
--- NOTE | 2020-10-17 10:05 | NUR ---
TELE-ICU UPDATED ON PTS STATUS.
[2020-10-17] MEDS: THIAMINE INJECTION 100 MG, FOLIC ACID INJECTION 1 MG, VITAMIN MULTI INJECTION 10 ML, MA... IV SCH ×5 (10:07)
--- NOTE | 2020-10-17 10:26 | NUR ---
PTS O2 SATS UPPER 80S-LOW 90S ON VAPOTHERM 35L 75%, THIS RN SPOKE W/ DR MILLER. BIPAP ORDERS RECEIVED.
--- NOTE | 2020-10-17 10:42 | NUR ---
PT STARTED COUGHING WHILE ON BIPAP, WANTED MASK OFF. PT PLACED BACK ON VAPOTHERM 40L 100%
--- NOTE | 2020-10-17 11:00 | NUR ---
DR MILLER AT BEDSIDE. NEW ORDERS RECEIVED TO INTUBATE PT. THIS RN CALLED AND INFORMED PTS DAUGHTER PAUL WHO AGREES W/ TREATMENT PLAN. DEEP SIMMONS CONFIRMED W/ DAUGHTER.
--- NOTE | 2020-10-17 11:19 | NUR ---
TIMELINE NOTE: DR MILLER AT BEDSIDE ALONG W/ RT, NURSING STAFF-PREPARING TO INTUBATE PT 1119- 50MCG FENTANYL GIVEN IVP 1120-2MG VERSED IVP GIVEN 1124- 3MG VERSED GIVEN IVP 1128- 50 JAVAN GIVEN IVP 1126-PT INTUBATED BY DR MILLER, SIZE 8 ETT. 24 AT LIP. RT BAGGING, COLOR CHANGE NOTED. VENT SETTINGS:RR 24 TV 500 PEEP 5 FIO2 100% 1130- OG PLACED TO LIS BY NURSING STAFF. CHEST XRAY ORDERED 1130-PROPOFOL GTT STARTED-SEE IV SPREADSHEET
[2020-10-17 11:32] LABS: BUN/CREATININE RATIO 14; CALCIUM 7.2 MG/DL (8.5-10.1); CARBON DIOXIDE 27 MMOL/L (21-32); CHLORIDE 106 MMOL/L (98-107); CREATININE SERUM 0.73 MG/DL (0.60-1.30); GFR ESTIMATED > 60; GLUCOSE 156 MG/DL (70-105); SODIUM 143 MMOL/L (135-145)
[2020-10-17 11:35] LABS: POTASSIUM 2.5 MMOL/L (3.6-5.0)
--- NOTE | 2020-10-17 11:37 | Pulmonary Procedures ---
Pulmonary Procedures Date of Procedure Date of Service: Oct 17, 2020 Reason for Intubation: Respiratory failure Time of Intubation: 11:36 Intubation Method: orotracheal Tube Size: 8 Medications: Fentanyl, Propofol, Rocuronium, Versed Positive End Tide CO2: Yes Breath Sounds after Intubation: bilateral-equal Intubation Complications: no complications Post Intubation Xray: Yes FANTA MILLER DO Oct 17, 2020 11:36
[2020-10-17] MEDS: PROPOFOL DRIP (ICU) 100 ML IV SCH ×2 (11:44→17:42)
--- NOTE | 2020-10-17 11:45 | NUR ---
CHEST XRAY REVIEWED BY DR MILLER, RT ADVANCED ETT TO 27 AT [facility].
--- NOTE | 2020-10-17 11:52 | Diagnostic Imaging Report ---
INDICATION: Postintubation. Time of exam 11:42 a.m. Comparison is made with prior chest from 10/17/2020. ET tube has tip at level of the clavicular heads. OG tube passes below the diaphragm. There are infiltrates in both lung bases, most consolidated in the left base. Mid and upper lung feldman are clear. There is no pneumothorax. IMPRESSION: 1. ET tube placement, as described which appears to have the tip at the level of the clavicular heads. This could be advanced. 2. Bibasilar infiltrates. Dictated by: Dictated on workstation # [id number]
--- NOTE | 2020-10-17 12:28 | Diagnostic Imaging Report ---
INDICATION: ET tube position. COMPARISON with 11:42 a.m. FINDINGS: ET tube is present. Tip overlies the tracheal shadow at the level of the aortic arch. NG tube is present extending into the stomach. Bibasilar atelectasis and/or infiltrates with small pleural effusions remaining present. IMPRESSION: 1. Tubes and lines appear in good position. 2. Continued bibasilar atelectasis and/or infiltrates remain present. Dictated by: Dictated on workstation # [id number]
--- NOTE | 2020-10-17 12:37 | NUR ---
LOW BP 76/51, DR MILLER NOTIFIED. NEW ORDERS RECEIVED FOR LR BOLUS
[2020-10-17] MEDS: MIDAZOLAM DRIP PRE-MIX 100 ML IV SCH (12:44)
[2020-10-17 12:57] LABS: ABG BASE EXCESS 4.2 MMOL/L (-2.5-2.5); ABG OXYGEN SATURATION 100 % (94-100); ABG TCO2 29.1 MMOL/L (21.0-31.0)
[2020-10-17 13:02] LABS: ABG PCO2 40 MMHG (35-45); ABG PH 7.46 (7.37-7.43); ABG PO2 255 MMHG (79-93)
[2020-10-17 13:03] LABS: ALLENS TEST YES-POS; INSPIRED O2 100%; PATIENT TEMP 36.8; VENTILATOR YES
--- NOTE | 2020-10-17 13:29 | NUR ---
COVID AND FLU NEGATIVE, OK TO DC ISOLATION PER DR RODRIGUEZ
--- NOTE | 2020-10-17 13:52 | Occ Therapy Progress Note ---
Therapy Progress Note OT orders received and chart reviewed. Pt is currently intubated/sedated, OT will continue to monitor pt and initiate therapy when pt is more medically stable and able to actively participate in skilled therapy. REBECA YEAGER OT Oct 17, 2020 13:52
--- NOTE | 2020-10-17 14:37 | Physical Therapy Progress Note ---
Therapy Progress Note Patient currently sedated and intubated. PT will continue to monitor patient status. NANCY ALLEN PT Oct 17, 2020 14:37
[2020-10-17 15:03] LABS: ABG BASE EXCESS 4.5 MMOL/L (-2.5-2.5); ABG OXYGEN SATURATION 98 % (94-100); ABG PCO2 41 MMHG (35-45); ABG PH 7.45 (7.37-7.43); ABG PO2 103 MMHG (79-93); ABG TCO2 29.5 MMOL/L (21.0-31.0)
[2020-10-17 15:05] LABS: ALLENS TEST POS; INSPIRED O2 60%; PATIENT TEMP 37.1; VENTILATOR YES
[2020-10-17] MEDS ORDERED: ROCURONIUM 10 MG/ML 5 ML SYRINGE IV ONE (15:17)
[2020-10-17] MEDS ORDERED: fentaNYL INJECTION 100 MCG/2 ML AMP IV ONE (15:17)
[2020-10-17] MEDS ORDERED: MIDAZOLAM 5 MG/5 ML (VERSED) VIAL IJ ONE (15:17)
[2020-10-17] MEDS: inSUlin ASPART (NovoLOG) 1 UNIT/0.01 ML (CHARGE PER UNIT) SQ SCH ×2 (17:44→23:49)
--- NOTE | 2020-10-17 20:13 | Progress Note ---
Subjective Subjective/Events-last exam Patient agitated this AM, not answering questions appropriately. Review of Systems Unable to obtain due to clinical condition Focused Exam Lactate Level 10/15/20 12:37: Lactic Acid Level 7.69*H 10/15/20 14:45: Lactic Acid Level 1.52 10/17/20 11:07: Lactic Acid Level 0.98 Objective Exam Last Set of Vital Signs Vital Signs Date Time Temp Pulse Resp B/P (MAP) Pulse Ox O2 Delivery O2 Flow Rate FiO2 10/17/20 19:15 71 27 95 50 10/17/20 18:00 91/63 (72) Mechanical Ventilator 50.00 10/17/20 15:01 37.1 Capillary Refill : Less Than 3 Seconds I&O Intake and Output 10/17/20 00:00 Intake Total 150 ml Output Total 1750 ml Balance -1600 ml Intake Oral 0 ml IV Total 150 ml Output Urine Total 1750 ml # Voids 3 General: Moderate Distress Lungs: Other (diffuse crackles and increased work of breathing) Heart: Regular Rate, No Murmurs Abdomen: Soft, No Tenderness Extremities: Other (1+ pitting edema bilaterally) Results/Procedures Lab Laboratory Tests 10/17/20 01:05: White Blood Count 7.0, Red Blood Count 3.16L, Hemoglobin 9.3L, Hematocrit 26L, Mean Corpuscular Volume 84, Mean Corpuscular Hemoglobin 29, Mean Corpuscular Hemoglobin Concent 35, Red Cell Distribution Width 17.1H, Platelet Count 343, Mean Platelet Volume 8.9L, Immature Granulocyte % (Auto) 1, Neutrophils (%) (Auto) 76H, Lymphocytes (%) (Auto) 16, Monocytes (%) (Auto) 6, Eosinophils (%) (Auto) 0, Basophils (%) (Auto) 0, Neutrophils # (Auto) 5.3, Lymphocytes # (Auto) 1.1, Monocytes # (Auto) 0.4, Eosinophils # (Auto) 0.0, Basophils # (Auto) 0.0, Immature Granulocyte # (Auto) 0.1, Sodium Level 142, Potassium Level 2.4*L, Chloride Level 103, Carbon Dioxide Level 26, Anion Gap 13, Blood Urea Nitrogen 15, Creatinine 0.93, Estimat Glomerular Filtration Rate > 60, BUN/Creatinine Ratio 16, Glucose Level 164H, Calcium Level 7.6L, Corrected Calcium 8.9, Phosphorus Level 0.8*L, Magnesium Level 2.4, Total Bilirubin 0.7, Aspartate Ami no Transf (AST/SGOT) 179H, Alanine Aminotransferase (ALT/SGPT) 194H, Alkaline Phosphatase 172H, Total Protein 5.2L, Albumin 2.4L 10/17/20 06:30: Sodium Level 142, Potassium Level 2.5*L, Chloride Level 103, Carbon Dioxide Level 27, Anion Gap 12, Blood Urea Nitrogen 12, Creatinine 0.84, Estimat Glomerular Filtration Rate > 60, BUN/Creatinine Ratio 14, Glucose Level 134H, Calcium Level 7.4L, Corrected Calcium 8.8, Total Bilirubin 0.7, Aspartate Amino Transf (AST/SGOT) 157H, Alanine Aminotransferase (ALT/SGPT) 180H, Alkaline Phosphatase 168H, Total Protein 5.1L, Albumin 2.3L, Ammonia 20 10/17/20 07:28: Blood Gas Puncture Site L RAD, Blood Gas Patient Temperature 36.9, Arterial Blood pH 7.47H, Arterial Blood Partial Pressure CO2 38, Arterial Blood Partial Pressure O2 78L, Arterial Blood HCO3 28H, Arterial Blood Total CO2 29.1, Arterial Blood Oxygen Saturation 96, Arterial Blood Base Excess 4.3H, Gautam Test YES-POS, Blood Gas Ventilator Setting NO, Blood Gas Inspired Oxygen 20L 45% 10/17/20 11:07: Sodium Level 143, Potassium Level 2.5*L, Chloride Level 106, Carbon Dioxide Level 27, Anion Gap 10, Blood Urea Nitrogen 10, Creatinine 0.73, Estimat Glomerular Filtration Rate > 60, BUN/Creatinine Ratio 14, Glucose Level 156H, Calcium Level 7.2L, Lactic Acid Level 0.98, Triglycerides Level 57 10/17/20 11:17: Glucometer 154H 10/17/20 12:33: Coronavirus 2019 (GEOFFREY) Negative 10/17/20 12:50: Blood Gas Puncture Site LT RAD, Blood Gas Patient Temperature 36.8, Arterial Blood pH 7.46H, Arterial Blood Partial Pressure CO2 40, Arterial Blood Partial Pressure O2 255H, Arterial Blood HCO3 28H, Arterial Blood Total CO2 29.1, Arterial Blood Oxygen Saturation 100, Arterial Blood Base Excess 4.2H, Gautam Test YES-POS, Blood Gas Ventilator Setting YES, Blood Gas Inspired Oxygen 100% 10/17/20 14:50: Blood Gas Puncture Site LFT RAD, Blood Gas Patient Temperature 37.1, Arterial Blood pH 7.45H, Arterial Blood Partial Pressure CO2 41, Arterial Blood Partial Pressure O2 103H, Arterial Blood HCO3 28H, Arterial Blood Total CO2 29.5, Arterial Blood Oxygen Saturation 98, Arterial Blood Base Excess 4.5H, Gautam Test POS, Blood Gas Ventilator Setting YES, Blood Gas Inspired Oxygen 60% 10/17/20 17:24: Glucometer 166H Microbiology 10/17/20 Influenza Types A,B Antigen (ADRIANA) - Final, Complete 10/15/20 Urine Culture - Final, Complete NO GROWTH Assessment/Plan Assessment/Plan (1) Altered mental status Status: Acute Assessment & Plan: - Sepsis vs EtOH withdraw vs Ammonia, continue to monitor 10/17: Metabolic encephalopathy, Dr Figueroa consulted, appreciated recommendations, started on Lactulose and Xifaxan today Qualifiers: Qualified Codes: R41.82 - Altered mental status, unspecified (2) Acute and chronic respiratory failure with hypoxia Status: Acute Assessment & Plan: - Vapotherm, MAT protocol added, Consulted and spoke to Dr Figueroa to see patient 10/17: Dr Figueroa saw patient this AM and moved to ICU bed, later in the AM patien t became more agitated and patient was intubated and sedated (3) Acute renal failure Status: Acute Assessment & Plan: - Likely 2/2 to profound dehydration, continue to monitor (4) Alcohol withdrawal Status: Acute Assessment & Plan: - CIWS, Sz precautions, Start bananna bag, IV ativan PRN Qualifiers: Qualified Codes: F10.231 - Alcohol dependence with withdrawal delirium (5) Normocytic anemia Status: Acute Assessment & Plan: - No signs of acute bleeding, continue to monitor (6) Elevated liver enzymes Status: Chronic (7) Hypokalemia Status: Acute Assessment & Plan: - Replace and repeat BMP (8) Hyponatremia Status: Acute (9) DVT prophylaxis Status: Acute Assessment & Plan: - SCDs ARSEN RODRIGUEZ MD Oct 17, 2020 20:13
--- NOTE | 2020-10-17 21:04 | NUR ---
DAUGHTER BELLE GIVEN UPDATE ON PT
[2020-10-17 21:15] LABS: BUN/CREATININE RATIO 11; CALCIUM 7.4 MG/DL (8.5-10.1); CARBON DIOXIDE 27 MMOL/L (21-32); CHLORIDE 107 MMOL/L (98-107); CREATININE SERUM 0.73 MG/DL (0.60-1.30); GFR ESTIMATED > 60; GLUCOSE 125 MG/DL (70-105); POTASSIUM 3.1 MMOL/L (3.6-5.0); SODIUM 142 MMOL/L (135-145)
[2020-10-18] VITALS (30 sets, daily range): BP systolic 75–120; BP diastolic 56–88
[2020-10-18] MEDS: PIPERACILLIN/TAZOBACTAM (BULK) 4.5 GM in NS (IVPB) 100 ML IV SCH ×4 (00:06→23:47)
[2020-10-18] MEDS: DexMEDEtomidine PRE MIX 100 ML IV SCH ×7 (02:06→22:36)
[2020-10-18 02:29] LABS: ABG BASE EXCESS 4.3 MMOL/L (-2.5-2.5); ABG OXYGEN SATURATION 100 % (94-100); ABG PCO2 32 MMHG (35-45); ABG PH 7.53 (7.37-7.43); ABG PO2 99 MMHG (79-93); ABG TCO2 28.5 MMOL/L (21.0-31.0)
[2020-10-18 02:31] LABS: ALLENS TEST YES-POS; INSPIRED O2 45%; PATIENT TEMP 35.6; VENTILATOR YES
[2020-10-18] MEDS: RT-ALBUTEROL/IPRATROPIUM 3 ML (DUONEB) VIAL INH SCH ×6 (02:31→22:54)
[2020-10-18] MEDS: LACTATED RINGERS 1,000 ML IV SCH ×2 (02:37→22:36)
[2020-10-18] MEDS: MIDAZOLAM DRIP PRE-MIX 100 ML IV SCH ×2 (02:40→08:08)
[2020-10-18 03:23] LABS: BASOPHILS # (AUTO) 0.1 10^3/uL (0.0-0.1); BASOPHILS % (AUTO) 1 % (0-10); EOSINOPHILS # (AUTO) 0.1 10^3/uL (0.0-0.3); EOSINOPHILS % (AUTO) 1 % (0-10); HEMATOCRIT 28 % (40-54); HEMOGLOBIN 9.5 g/dL (13.3-17.7); LYMPHOCYTES # (AUTO) 1.9 10^3/uL (1.0-4.0); LYMPHOCYTES % (AUTO) 19 % (12-44); MEAN CORPUSCULAR HEMOGLOBIN 29 pg (25-34); MEAN CORPUSCULAR HGB CONC 34 g/dL (32-36); MEAN CORPUSCULAR VOLUME 86 fL (80-99); MEAN PLATELET VOLUME 8.9 fL (9.0-12.2); MONOCYTES % (AUTO) 9 % (0-12); NEUTROPHILS # (AUTO) 6.9 10^3/uL (1.8-7.8); NEUTROPHILS % (AUTO) 67 % (42-75); PLATELET COUNT 292 10^3/uL (130-400); WHITE BLOOD COUNT 10.3 10^3/uL (4.3-11.0)
[2020-10-18 03:42] LABS: ALBUMIN 2.1 GM/DL (3.2-4.5)
[2020-10-18 03:43] LABS: CHLORIDE 108 MMOL/L (98-107); POTASSIUM 3.3 MMOL/L (3.6-5.0); SODIUM 143 MMOL/L (135-145)
[2020-10-18 03:44] LABS: CALCIUM 7.5 MG/DL (8.5-10.1)
[2020-10-18] MEDS ORDERED: ENOXAPARIN 40 MG/0.4 ML (LOVENOX) SYR ONE (03:44)
--- NOTE | 2020-10-18 03:44 | Pulmonary Progress Note ---
Subjective Time Seen by a Provider: 03:37 Subjective/Events-last exam Sedated on vent. Sepsis Event Evaluation Height, Weight, BMI Height: 6'1.00" Weight: 188lbs. 0.0oz. 85.562945ie; 25.96 BMI Method:Stated Focused Exam Lactate Level 10/15/20 12:37: Lactic Acid Level 7.69*H 10/15/20 14:45: Lactic Acid Level 1.52 10/17/20 11:07: Lactic Acid Level 0.98 Exam Exam Vital Signs Date Time Temp Pulse Resp B/P (MAP) Pulse Ox O2 Delivery O2 Flow Rate FiO2 10/18/20 02:40 63 110/78 10/18/20 02:32 72 30 92 45 10/18/20 02:06 64 107/88 10/18/20 01:00 70 10/18/20 00:11 Mechanical Ventilator 45.00 10/17/20 23:40 36.9 10/17/20 23:00 74 26 107/71 (83) 91 Mechanical Ventilator 50.00 10/17/20 22:09 72 33 95 50 10/17/20 22:00 70 26 109/72 (84) 96 Mechanical Ventilator 50.00 10/17/20 21:20 71 99/64 10/17/20 21:00 72 104/67 (79) 95 Mechanical Ventilator 50.00 10/17/20 20:13 Mechanical Ventilator 50.00 10/17/20 20:00 73 19 103/68 (80) 95 Mechanical Ventilator 50.00 10/17/20 20:00 Mechanical Ventilator 50 10/17/20 19:15 71 27 95 50 10/17/20 19:00 76 37 99/68 (78) 94 Mechanical Ventilator 50.00 10/17/20 19:00 71 10/17/20 18:00 71 33 91/63 (72) 95 Mechanical Ventilator 50.00 10/17/20 17:44 Mechanical Ventilator 50.00 10/17/20 17:42 71 90/62 10/17/20 17:41 71 26 90/62 97 Mechanical Ventilator 50.00 10/17/20 17:00 71 21 98/66 (77) 97 Mechanical Ventilator 60.00 10/17/20 16:00 71 26 90/62 (71) 97 Mechanical Ventilator 60.00 10/17/20 15:01 37.1 10/17/20 15:00 73 18 87/63 (71) 96 Mechanical Ventilator 60.00 10/17/20 14:15 Mechanical Ventilator 60.00 10/17/20 14:13 77 24 86/52 94 Mechanical Ventilator 75.00 10/17/20 14:00 73 88/63 (71) 99 Mechanical Ventilator 75.00 10/17/20 13:47 98 24 100 75 10/17/20 13:45 Mechanical Ventilator 75.00 10/17/20 13:00 72 100/70 (80) 99 Vapotherm 40.00 100.00 10/17/20 12:44 77 24 86/52 10/17/20 12:33 76 10/17/20 12:00 36.8 77 24 86/52 (63) 94 Mechanical Ventilator 100.00 10/17/20 11:44 79 97/58 10/17/20 11:00 20 97/58 (71) 97 Vapotherm 40.00 100.00 10/17/20 10:42 Vapotherm 40.00 100.00 10/17/20 10:00 79 89/44 (59) 91 Vapotherm 20.00 75.00 10/17/20 09:25 Vapotherm 35.00 75.00 10/17/20 09:10 26 Vapotherm 30.00 60.00 10/17/20 09:00 78 75/50 (58) 89 Vapotherm 20.00 45.00 10/17/20 08:46 25.00 50.00 10/17/20 08:00 81 90/56 (67) 95 Vapotherm 20.00 45.00 10/17/20 08:00 Vapotherm 20.00 45 10/17/20 07:31 36.9 10/17/20 07:20 90 Vapotherm 20.00 45 10/17/20 07:20 Vapotherm 20.00 45.00 10/17/20 07:00 91 107/61 (76) 96 Vapotherm 20.00 45.00 10/17/20 06:59 37.0 99 20 100/57 91 20.00 10/17/20 06:55 93 10/17/20 04:30 37.0 99 20 100/57 (71) 91 Vapotherm 20.00 50.00 I & O 10/18/20 07:00 Intake Total 4955.2 ml Output Total 1300 ml Balance 3655.2 ml Height & Weight Height: 6'1.00" Weight: 188lbs. 0.0oz. 85.982333zp; 25.96 BMI Method:Stated General Appearance: Anxious, Chronically ill, Other (Sedated on vent ) HEENT: PERRL/EOMI, Normal ENT Inspection Neck: Non Tender, Supple Respiratory: Chest Non Tender, Crackles, Decreased Breath Sounds Cardiovascular: Regular Rate, Rhythm, No Edema, Normal Peripheral Pulses Capillary Refill: Less Than 3 Seconds Gastrointestinal: normal bowel sounds, non tender, soft; No guarding, No rebound Extremity: Normal Capillary Refill, Non Tender Neurologic/Psychiatric: No Motor/Sensory Deficits Skin: Normal Color, Warm/Dry Results Lab Laboratory Tests 10/16/20 15:00 10/17/20 01:05 10/17/20 06:30 10/17/20 11:07 10/17/20 20:35 10/18/20 03:02 Assessment/Plan Assessment/Plan Acute on chronic respiratory failure -Intubated 10/17 secondary to sedation from CIWA -Vent settings: 400/24/5 -Decrease VT to 350 and repeat ABG in 1hr. -Continue Versed, Precedex and Propofol -Labs and radiology reviewed Metabolic encephalopathy -Monitor - Continue Rifaxamine Hx of alcohol dependance -[facility] protocol UTI -Continue Zosyn Acute renal failure Anemia -Monitor Hypokalemia -Labs pending GI/DVT ppx -Lovenox and Protonix FANTA MILLER DO Oct 18, 2020 03:44
[2020-10-18 03:45] LABS: GLUCOSE 131 MG/DL (70-105); TOTAL PROTEIN 4.8 GM/DL (6.4-8.2)
[2020-10-18 03:46] LABS: CARBON DIOXIDE 27 MMOL/L (21-32)
[2020-10-18 03:47] LABS: BILIRUBIN,TOTAL 0.5 MG/DL (0.1-1.0)
[2020-10-18 03:48] LABS: ALKALINE PHOSPHATASE 152 U/L (40-136); PHOSPHORUS 1.7 MG/DL (2.3-4.7)
[2020-10-18 03:49] LABS: CREATININE SERUM 0.63 MG/DL (0.60-1.30); GFR ESTIMATED > 60
[2020-10-18 03:50] LABS: BUN/CREATININE RATIO 11
[2020-10-18 03:52] LABS: ALANINE AMINOTRANSFERASE 135 U/L (0-55); MAGNESIUM 1.9 MG/DL (1.6-2.4)
[2020-10-18] MEDS: ENOXAPARIN 40 MG/0.4 ML (LOVENOX) SYR SC SCH (03:53)
[2020-10-18] MEDS: NS W/KCL 20 MEQ/L 1,000 ML IV SCH ×4 (03:53→23:32)
[2020-10-18 03:57] LABS: INR 1.1 (0.8-1.4); PROTHROMBIN TIME PATIENT 14.5 SEC (12.2-14.7)
[2020-10-18 04:17] LABS: BILIRUBIN,URINE NEGATIVE (NEGATIVE); CLARITY,URINE SL CLOUDY; COLOR,URINE YELLOW; GLUCOSE, URINE (UA) NEGATIVE (NEGATIVE); KETONES,URINE NEGATIVE (NEGATIVE); LEUKOCYTE ESTERASE ,URINE NEGATIVE (NEGATIVE); NITRITE,URINE NEGATIVE (NEGATIVE); PH,URINE 5.5 (5-9); PROTEIN,URINE TRACE (NEGATIVE)
[2020-10-18] MEDS: POTASSIUM CL 10MEQ/50ML IVPB 50 ML IV SCH ×3 (04:29→06:20)
[2020-10-18] MEDS: KCL 20 MEQ TAB (K-DUR) PO SCH (04:37)
[2020-10-18] MEDS: inSUlin ASPART (NovoLOG) 1 UNIT/0.01 ML (CHARGE PER UNIT) SQ SCH ×4 (04:37→23:47)
[2020-10-18] MEDS: MAGNESIUM 1 GM/100 ML IVPB 100 ML IV SCH (04:37)
[2020-10-18 04:42] LABS: BACTERIA,URINE NEGATIVE /HPF; WBC,URINE RARE /HPF
[2020-10-18 04:43] LABS: URIC ACID CRYSTALS,URINE MODERATE /LPF
[2020-10-18 05:30] LABS: ABG BASE EXCESS 4.5 MMOL/L (-2.5-2.5); ABG OXYGEN SATURATION 98 % (94-100); ABG PCO2 42 MMHG (35-45); ABG PH 7.45 (7.37-7.43); ABG PO2 96 MMHG (79-93); ABG TCO2 29.9 MMOL/L (21.0-31.0); ALLENS TEST YES-POS; INSPIRED O2 45%; PATIENT TEMP 36.4; VENTILATOR YES
--- NOTE | 2020-10-18 06:12 | NUR ---
DAUGHTER GIVEN UPDATE
[2020-10-18] MEDS: PROPOFOL DRIP (ICU) 100 ML IV SCH ×3 (07:04→20:59)
--- NOTE | 2020-10-18 07:50 | Physical Therapy Progress Note ---
Therapy Progress Note Patient is sedated and intubated. PT will continue to monitor patient status. NANCY ALLEN PT Oct 18, 2020 07:50
--- NOTE | 2020-10-18 07:52 | Diagnostic Imaging Report ---
EXAMINATION: Chest radiograph, portable AP view. DATE: 10/18/2020 2:37 AM INDICATION: 60-year-old male, intubation. COMPARISON: October 17, 2020. FINDINGS: The endotracheal tube is approximately 6.7 cm above the melissa. The nasogastric tube is in the stomach. Stable overall appearance of the cardia mediastinal silhouette. There is no identified pneumothorax. There is mid and lower lung zone consolidation bilaterally which is essentially unchanged. IMPRESSION: 1. Grossly unchanged bilateral predominantly mid and lower lung zone opacification. 2. Support lines and tubes as above. Dictated by: Dictated on workstation # [id number]
[2020-10-18] MEDS: NOREPINEPHRINE 4 MG/250 ML 250 ML IV SCH ×3 (08:05→23:47)
[2020-10-18] MEDS: THIAMINE INJECTION 100 MG, FOLIC ACID INJECTION 1 MG, VITAMIN MULTI INJECTION 10 ML, MA... IV SCH ×5 (08:07)
[2020-10-18] MEDS: PANTOPRAZOLE 40 MG (PROTONIX) VIAL IV SCH (08:09)
[2020-10-18] MEDS: RIFAXIMIN 550 MG TABLET (XIFAXAN) PO SCH ×2 (08:10→20:59)
[2020-10-18] MEDS: SPIRONOLACTONE 25 MG (ALDACTONE) TAB PO SCH (08:10)
[2020-10-18] MEDS ORDERED: POTASSIUM PHOSPHATE INJ 30 MM in NS (IVPB) 250 ML IV ONE (09:00)
--- NOTE | 2020-10-18 12:57 | NUR ---
Daughter, Angela, updated at this time. Education provided on phone calls and pt's status at this time.
--- NOTE | 2020-10-18 13:57 | NUR ---
CM/SS: Telephone Call to daughter Carolina - [phone] - letting her know that this worker does not have any new information, and that over the weekend the nurses will continue to provide them with updates. Let her know that this worker will follow up with her on Wednesday. This worker also told her that they could facetime if they wanted to see pt. She thanked this worker for calling.
--- NOTE | 2020-10-18 15:41 | NUR ---
Received dietary consult for vent status. Note pt is currently intubated/sedated for detox. If pt is remain NPO for more than 3days, would recommend initiation of TF of [employer] via 60ml bolus feeds q4h with 30ml free water flushes before/after each bolus. Will continue to follow and reassess as pt needs, intake, and status change. Sarah Carrillo, MS RD LD [phone] cell
--- NOTE | 2020-10-18 16:07 | Progress Note ---
Subjective Subjective/Events-last exam Patient intubated and sedated Review of Systems Unable to obtain due to clinical condition Focused Exam Lactate Level 10/17/20 11:07: Lactic Acid Level 0.98 Objective Exam Last Set of Vital Signs Vital Signs Date Time Temp Pulse Resp B/P (MAP) Pulse Ox O2 Delivery O2 Flow Rate FiO2 10/18/20 15:57 64 10/18/20 15:45 36.3 10/18/20 15:00 25 81/56 (64) 93 Mechanical Ventilator 45.00 10/18/20 13:53 45 Capillary Refill : Less Than 3 Seconds I&O Intake and Output 10/18/20 00:00 Intake Total 5155.2 ml Output Total 1600 ml Balance 3555.2 ml Intake Oral 0 ml IV Total 5155.2 ml Output Urine Total 1600 ml # Bowel Movements 4 General: Other (Intubated and sedated, comfortable on vent this AM) Lungs: Other (decreased breath sounds) Heart: Regular Rate, No Murmurs Abdomen: Soft Extremities: No Edema, No Tenderness/Swelling, Other (brusing and scabs on LE and bruising present on UE bilaterally) Results/Procedures Lab Laboratory Tests 10/17/20 17:24: Glucometer 166H 10/17/20 20:35: Sodium Level 142, Potassium Level 3.1L, Chloride Level 107, Carbon Dioxide Level 27, Anion Gap 8, Blood Urea Nitrogen 8, Creatinine 0.73, Estimat Glomerular Filtration Rate > 60, BUN/Creatinine Ratio 11, Glucose Level 125H, Calcium Level 7.4L 10/17/20 23:05: Glucometer 129H 10/18/20 02:12: Blood Gas Puncture Site LEFT RADIAL, Blood Gas Patient Temperature 35.6, Arterial Blood pH 7.53H, Arterial Blood Partial Pressure CO2 32L, Arterial Blood Partial Pressure O2 99H, Arterial Blood HCO3 27, Arterial Blood Total CO2 28.5, Arterial Blood Oxygen Saturation 100, Arterial Blood Base Excess 4.3H, Gautam Test YES-POS, Blood Gas Ventilator Setting YES, Blood Gas Inspired Oxygen 45% 10/18/20 03:02: White Blood Count 10.3, Red Blood Count 3.28L, Hemoglobin 9.5L, Hematocrit 28L, Mean Corpuscular Volume 86, Mean Corpuscular Hemoglobin 29, Mean Corpuscular Hemoglobin Concent 34, Red Cell Distribution Width 17.9H, Platelet Count 292, Mean Platelet Volume 8.9L, Immature Granulocyte % (Auto) 4, Neutrophils (%) (Auto) 67, Lymphocytes (%) (Auto) 19, Monocytes (%) (Auto) 9, Eosinophils (%) (Auto) 1, Basophils (%) (Auto) 1, Neutrophils # (Auto) 6.9, Lymphocytes # (Auto) 1.9, Monocytes # (Auto) 1.0, Eosinophils # (Auto) 0.1, Basophils # (Auto) 0.1, Immature Granulocyte # (Auto) 0.4H, Prothrombin Time 14.5, INR Comment 1.1, Activated Partial Thromboplast Time 30, Sodium Level 143, Potassium Level 3.3L, Chloride Level 108H, Carbon Dioxide Level 27, Anion Gap 8, Blood Urea Nitrogen 7, Creatinine 0.63, Estimat Glomerular Filtration Rate > 60, BUN/Creatinine Ratio 11, Glucose Level 131H, Calcium Level 7.5L, Corrected Calcium 9.0, Phosphorus Level 1.7L, Magnesium Level 1.9, Total Bilirubin 0.5, Aspartate Amino Transf (AST/SGOT) 72H, Alanine Aminotransferase (ALT/SGPT) 135H, Alkaline Phosphatase 152H, Total Protein 4.8L, Albumin 2.1L 10/18/20 03:56: Urine Color YELLOW, Urine Clarity SL CLOUDY, Urine pH 5.5, Urine Specific [place] 1.025H, Urine Protein TRACEH, Urine Glucose (UA) NEGATIVE, Urine Ketones NEGATIVE, Urine Nitrite NEGATIVE, Urine Bilirubin NEGATIVE, Urine Urobilinogen 0.2, Urine Leukocyte Esterase NEGATIVE, Urine RBC (Auto) 1+H, Urine RBC 5-10H, Urine WBC RARE, Urine Squamous Epithelial Cells 2-5, Urine Crystals PRESENTH, Urine Uric Acid Crystals MODERATEH, Urine Bacteria NEGATIVE, Urine Casts PRESENT, Urine Granular Casts 5-10H, Urine Mucus SMALLH, Urine Culture Indicated NO 10/18/20 05:20: Blood Gas Puncture Site LEFT RADIAL, Blood Gas Patient Temperature 36.4, Kimberly rial Blood pH 7.45H, Arterial Blood Partial Pressure CO2 42, Arterial Blood Partial Pressure O2 96H, Arterial Blood HCO3 29H, Arterial Blood Total CO2 29.9, Arterial Blood Oxygen Saturation 98, Arterial Blood Base Excess 4.5H, Gautam Test YES-POS, Blood Gas Ventilator Setting YES, Blood Gas Inspired Oxygen 45% 10/18/20 11:42: Glucometer 131H Microbiology 10/17/20 MRSA Screen - Final, Complete MRSA not isolated 10/15/20 Urine Culture - Final, Complete NO GROWTH Assessment/Plan Assessment/Plan (1) Altered mental status Status: Acute Assessment & Plan: - Sepsis vs EtOH withdraw vs Ammonia, continue to monitor 10/17: Metabolic encephalopathy, Dr Figueroa consulted, appreciated recommendations, started on Lactulose and Xifaxan today 10/18: Intubated and sedated, labs improving Qualifiers: Qualified Codes: R41.82 - Altered mental status, unspecified (2) Acute and chronic respiratory failure with hypoxia Status: Acute Assessment & Plan: - Vapotherm, MAT protocol added, Consulted and spoke to Dr Figueroa to see patient 10/17: Dr Figueroa saw patient this AM and moved to ICU bed, later in the AM patient became more agitated and patient was intubated and sedated 10/18: Vented, Dr Figueroa managing (3) Alcohol withdrawal Status: Acute Assessment & Plan: - CIWS, Sz precautions, Start bananna bag, IV ativan PRN Qualifiers: Qualified Codes: F10.231 - Alcohol dependence with withdrawal delirium (4) Normocytic anemia Status: Acute Assessment & Plan: - No signs of acute bleeding, continue to monitor (5) Acute renal failure Status: Resolved Assessment & Plan: - Likely 2/2 to profound dehydration, continue to monitor (6) Elevated liver enzymes Status: Chronic Assessment & Plan: 10/18: Improving, Normal acute hepatitis panel in 05/2020 (7) Hypokalemia Status: Acute Assessment & Plan: - Replace and repeat BMP (8) Hyponatremia Status: Resolved (9) DVT prophylaxis Status: Acute Assessment & Plan: - ARSEN Li MD Oct 18, 2020 16:07
[2020-10-18] MEDS: LORazepam INJ 2 MG/ML (ATIVAN) VIAL IV PRN (16:11)
--- NOTE | 2020-10-18 19:30 | NUR ---
UPDATE GIVEN TO PT'S DAUGHTER AFTER PASSWORD VERIFIED
[2020-10-19] VITALS (30 sets, daily range): BP systolic 92–114; BP diastolic 63–76
[2020-10-19] MEDS: LORazepam INJ 2 MG/ML (ATIVAN) VIAL IV PRN (00:02)
[2020-10-19] MEDS: DexMEDEtomidine PRE MIX 100 ML IV SCH ×6 (01:37→20:06)
[2020-10-19 02:47] LABS: ABG BASE EXCESS 9.6 MMOL/L (-2.5-2.5); ABG PCO2 35 MMHG (35-45); ABG PH 7.58 (7.37-7.43); ABG PO2 129 MMHG (79-93); ABG TCO2 33.5 MMOL/L (21.0-31.0)
[2020-10-19 02:49] LABS: ABG OXYGEN SATURATION 99 % (94-100); ALLENS TEST YES-POS; INSPIRED O2 50%; PATIENT TEMP 37.6; VENTILATOR YES
[2020-10-19] MEDS: RT-ALBUTEROL/IPRATROPIUM 3 ML (DUONEB) VIAL INH SCH ×6 (02:51→22:24)
[2020-10-19 03:31] LABS: BASOPHILS # (AUTO) 0.1 10^3/uL (0.0-0.1); BASOPHILS % (AUTO) 1 % (0-10); EOSINOPHILS % (AUTO) 0 % (0-10); HEMATOCRIT 31 % (40-54); HEMOGLOBIN 10.1 g/dL (13.3-17.7); LYMPHOCYTES # (AUTO) 2.5 10^3/uL (1.0-4.0); LYMPHOCYTES % (AUTO) 22 % (12-44); MEAN CORPUSCULAR HEMOGLOBIN 28 pg (25-34); MEAN CORPUSCULAR HGB CONC 33 g/dL (32-36); MEAN CORPUSCULAR VOLUME 87 fL (80-99); MEAN PLATELET VOLUME 9.2 fL (9.0-12.2); MONOCYTES % (AUTO) 9 % (0-12); NEUTROPHILS # (AUTO) 6.7 10^3/uL (1.8-7.8); NEUTROPHILS % (AUTO) 60 % (42-75); PLATELET COUNT 324 10^3/uL (130-400); WHITE BLOOD COUNT 11.1 10^3/uL (4.3-11.0)
[2020-10-19 03:45] LABS: ALBUMIN 2.1 GM/DL (3.2-4.5); CHLORIDE 107 MMOL/L (98-107); POTASSIUM 4.1 MMOL/L (3.6-5.0); SODIUM 145 MMOL/L (135-145)
[2020-10-19 03:47] LABS: CALCIUM 7.7 MG/DL (8.5-10.1); TRIGLYCERIDES 77 MG/DL (<150)
[2020-10-19 03:48] LABS: GLUCOSE 111 MG/DL (70-105); TOTAL PROTEIN 5.1 GM/DL (6.4-8.2)
[2020-10-19 03:49] LABS: CARBON DIOXIDE 29 MMOL/L (21-32)
[2020-10-19 03:50] LABS: BILIRUBIN,TOTAL 0.5 MG/DL (0.1-1.0)
[2020-10-19 03:51] LABS: ALKALINE PHOSPHATASE 159 U/L (40-136); CREATININE SERUM 0.72 MG/DL (0.60-1.30); GFR ESTIMATED > 60; PHOSPHORUS 2.8 MG/DL (2.3-4.7)
[2020-10-19 03:53] LABS: BUN/CREATININE RATIO 7
[2020-10-19 03:54] LABS: ALANINE AMINOTRANSFERASE 104 U/L (0-55); MAGNESIUM 1.8 MG/DL (1.6-2.4)
[2020-10-19] MEDS: ENOXAPARIN 40 MG/0.4 ML (LOVENOX) SYR SC SCH (04:22)
[2020-10-19] MEDS: KCL 20 MEQ TAB (K-DUR) PO SCH (04:23)
[2020-10-19] MEDS: POTASSIUM CL 10MEQ/50ML IVPB 50 ML IV SCH (04:23)
[2020-10-19] MEDS: MAGNESIUM 1 GM/100 ML IVPB 100 ML IV SCH (04:23)
[2020-10-19] MEDS: inSUlin ASPART (NovoLOG) 1 UNIT/0.01 ML (CHARGE PER UNIT) SQ SCH ×3 (04:24→17:55)
--- NOTE | 2020-10-19 05:51 | Progress Note - Hospitalist ---
Subjective HPI/CC On Admission Date Seen by Provider: Oct 19, 2020 Time Seen by Provider: 11:00 Subjective/Events-last exam Patient remains intubated Monitoring UOP PEEP 5 RN has no concerns Reviewed meds and labs and eicu notes Focused Exam Lactate Level 10/17/20 11:07: Lactic Acid Level 0.98 Objective Exam Vital Signs Vital Signs Date Time Temp Pulse Resp B/P (MAP) Pulse Ox O2 Delivery O2 Flow Rate FiO2 10/20/20 06:00 65 20 103/69 (80) 95 Mechanical Ventilator 40.00 10/20/20 04:43 36.3 10/20/20 02:24 40 Capillary Refill : Less Than 3 Seconds General Appearance: No Apparent Distress, WD/WN, Chronically ill, Other (intubated) Respiratory: No Accessory Muscle Use, No Respiratory Distress, Decreased Breath Sounds Cardiovascular: Regular Rate, Rhythm Results/Procedures Lab Laboratory Tests 10/20/20 02:47 Patient resulted labs reviewed. Assessment/Plan Assessment and Plan Assess & Plan/Chief Complaint Assessment from Dr Figueroa with my modifications: Acute on chronic respiratory failure -Intubated 10/17 secondary to sedation from CIWA -Vent settings: 400/24/5 -Continue Versed, Precedex and Propofol -Labs and radiology reviewed Metabolic encephalopathy -Monitor - Continue Rifaxamine Hx of alcohol dependance -WA protocol UTI -Continue Zosyn Acute renal failure Anemia -Monitor Hypokalemia -Labs pending GI/DVT ppx -Lovenox and Protonix Plan: Maintain vent Monitor belleat ESTIVEN AQUINO DO Oct 19, 2020 05:51
--- NOTE | 2020-10-19 08:09 | Diagnostic Imaging Report ---
INDICATION: Pneumonia. Comparison is made with prior examination from 10/18/2020. FINDINGS: Heart size is normal. There is mild venous congestion. There are patchy bibasilar infiltrates although they appear improved. There is no pleural effusion or pneumothorax. Mediastinum is unremarkable. ET and NG tubes are in satisfactory position. IMPRESSION: Continued improvement in the patchy bibasilar pulmonary infiltrates with some mild central pulmonary venous congestion. Dictated by: Dictated on workstation # [id number]
[2020-10-19] MEDS: PROPOFOL DRIP (ICU) 100 ML IV SCH ×2 (08:13→15:54)
[2020-10-19] MEDS: SPIRONOLACTONE 25 MG (ALDACTONE) TAB PO SCH (08:19)
[2020-10-19] MEDS: PANTOPRAZOLE 40 MG (PROTONIX) VIAL IV SCH (08:19)
[2020-10-19] MEDS: PIPERACILLIN/TAZOBACTAM (BULK) 4.5 GM in NS (IVPB) 100 ML IV SCH ×2 (08:19→15:44)
[2020-10-19] MEDS: RIFAXIMIN 550 MG TABLET (XIFAXAN) PO SCH ×2 (08:19→20:06)
--- NOTE | 2020-10-19 11:08 | NUR ---
CALL PLACED TO PT DTR BELLE, UPDATE GIVEN, QUESTIONS ANSWERED. BELLE STATED SHE WOULD UPDATE SISTERS. REMINDED DTR OF CALL TIMES BETWEEN 11-2, DTR VOICED UNDERSTANDING.
--- NOTE | 2020-10-19 11:13 | Physical Therapy Progress Note ---
Therapy Progress Note Patient is sedated and intubated. PT will continue to monitor patient status. GEO KIRKLAND DPT Oct 19, 2020 11:13
[2020-10-19] MEDS: NOREPINEPHRINE 4 MG/250 ML 250 ML IV SCH ×2 (11:15→17:34)
[2020-10-19] MEDS: LACTATED RINGERS 1,000 ML IV SCH (13:55)
[2020-10-19] MEDS: MIDAZOLAM DRIP PRE-MIX 100 ML IV SCH (16:17)
--- NOTE | 2020-10-19 20:25 | NUR ---
UPDATE GIVEN TO PT'S DAUGHTER BELLE
[2020-10-20] VITALS (27 sets, daily range): BP systolic 91–149; BP diastolic 51–98
[2020-10-20] MEDS: PIPERACILLIN/TAZOBACTAM (BULK) 4.5 GM in NS (IVPB) 100 ML IV SCH ×3 (00:23→16:19)
[2020-10-20] MEDS: inSUlin ASPART (NovoLOG) 1 UNIT/0.01 ML (CHARGE PER UNIT) SQ SCH ×4 (00:23→18:07)
[2020-10-20] MEDS: DexMEDEtomidine PRE MIX 100 ML IV SCH ×6 (00:37→20:53)
[2020-10-20] MEDS: PROPOFOL DRIP (ICU) 100 ML IV SCH ×3 (00:39→20:54)
[2020-10-20] MEDS: RT-ALBUTEROL/IPRATROPIUM 3 ML (DUONEB) VIAL INH SCH ×6 (02:23→22:19)
[2020-10-20 03:01] LABS: BASOPHILS # (AUTO) 0.1 10^3/uL (0.0-0.1); BASOPHILS % (AUTO) 1 % (0-10); EOSINOPHILS # (AUTO) 0.1 10^3/uL (0.0-0.3); EOSINOPHILS % (AUTO) 0 % (0-10); HEMATOCRIT 29 % (40-54); HEMOGLOBIN 9.2 g/dL (13.3-17.7); LYMPHOCYTES # (AUTO) 2.5 10^3/uL (1.0-4.0); LYMPHOCYTES % (AUTO) 20 % (12-44); MEAN CORPUSCULAR HEMOGLOBIN 29 pg (25-34); MEAN CORPUSCULAR HGB CONC 32 g/dL (32-36); MEAN CORPUSCULAR VOLUME 89 fL (80-99); MEAN PLATELET VOLUME 9.3 fL (9.0-12.2); MONOCYTES # (AUTO) 0.9 10^3/uL (0.0-1.0); MONOCYTES % (AUTO) 7 % (0-12); NEUTROPHILS # (AUTO) 7.6 10^3/uL (1.8-7.8); NEUTROPHILS % (AUTO) 62 % (42-75); PLATELET COUNT 301 10^3/uL (130-400); WHITE BLOOD COUNT 12.4 10^3/uL (4.3-11.0)
[2020-10-20] MEDS: NOREPINEPHRINE 4 MG/250 ML 250 ML IV SCH ×3 (03:12→20:55)
[2020-10-20 03:21] LABS: ALBUMIN 1.9 GM/DL (3.2-4.5)
[2020-10-20 03:22] LABS: CHLORIDE 106 MMOL/L (98-107); POTASSIUM 3.9 MMOL/L (3.6-5.0); SODIUM 146 MMOL/L (135-145)
[2020-10-20 03:23] LABS: CALCIUM 7.4 MG/DL (8.5-10.1)
[2020-10-20 03:24] LABS: GLUCOSE 85 MG/DL (70-105)
[2020-10-20 03:25] LABS: CARBON DIOXIDE 29 MMOL/L (21-32)
[2020-10-20 03:26] LABS: BILIRUBIN,TOTAL 0.4 MG/DL (0.1-1.0)
[2020-10-20 03:27] LABS: ALKALINE PHOSPHATASE 136 U/L (40-136); PHOSPHORUS 3.1 MG/DL (2.3-4.7)
[2020-10-20 03:28] LABS: CREATININE SERUM 0.65 MG/DL (0.60-1.30); GFR ESTIMATED > 60
[2020-10-20 03:29] LABS: BUN/CREATININE RATIO 12
[2020-10-20 03:30] LABS: MAGNESIUM 1.6 MG/DL (1.6-2.4)
[2020-10-20 03:31] LABS: ALANINE AMINOTRANSFERASE 70 U/L (0-55)
[2020-10-20] MEDS: ENOXAPARIN 40 MG/0.4 ML (LOVENOX) SYR SC SCH (03:46)
[2020-10-20] MEDS: MAGNESIUM 1 GM/100 ML IVPB 100 ML IV SCH ×2 (03:47→06:39)
[2020-10-20] MEDS: POTASSIUM CL 10MEQ/50ML IVPB 50 ML IV SCH (06:39)
[2020-10-20] MEDS: KCL 20 MEQ TAB (K-DUR) PO SCH (06:40)
[2020-10-20] MEDS: PANTOPRAZOLE 40 MG (PROTONIX) VIAL IV SCH (08:04)
[2020-10-20] MEDS: SPIRONOLACTONE 25 MG (ALDACTONE) TAB PO SCH (08:05)
[2020-10-20] MEDS: RIFAXIMIN 550 MG TABLET (XIFAXAN) PO SCH ×2 (08:05→21:50)
--- NOTE | 2020-10-20 08:09 | Diagnostic Imaging Report ---
EXAMINATION: Chest radiograph, portable AP view. DATE: 10/20/2020 3:45 AM INDICATION: 60-year-old male, intubation. COMPARISON: October 19, 2020. FINDINGS: The endotracheal tube is approximately 7.5 cm above the melissa. The nasogastric tube is at the level of the stomach. Stable overall appearance of the cardiomediastinal silhouette. There is no identified pneumothorax. There is predominantly mid and lower lung zone consolidation bilaterally. The appearance is similar to the comparison study. IMPRESSION: 1. Grossly unchanged bilateral predominantly mid and lower lung zone consolidation. 2. Support lines and tubes as above. Dictated by: Dictated on workstation # [id number]
[2020-10-20] MEDS: LACTATED RINGERS 1,000 ML IV SCH ×2 (09:35→19:31)
--- NOTE | 2020-10-20 11:31 | NUR ---
CALL PLACED TO DTLucas ODONNELL AT THIS TIME, UPDATE GIVEN, QUESTIONS ANSWERED. DTR THANKED THIS NURSE FOR UPDATE.
--- NOTE | 2020-10-20 11:33 | Progress Note - Hospitalist ---
Subjective HPI/CC On Admission Date Seen by Provider: Oct 20, 2020 Time Seen by Provider: 11:30 Subjective/Events-last exam Remains intubated Hypotension noted May need pressors Monitoring closely Checked meds and labs Objective Exam Vital Signs Vital Signs Date Time Temp Pulse Resp B/P (MAP) Pulse Ox O2 Delivery O2 Flow Rate FiO2 10/20/20 19:50 65 33 95 30 10/20/20 18:00 139/85 (103) Mechanical Ventilator 50.00 10/20/20 11:42 36.9 Capillary Refill : Less Than 3 Seconds General Appearance: No Apparent Distress, WD/WN, Other (intubated) Respiratory: Lungs Clear Cardiovascular: Regular Rate, Rhythm Results/Procedures Lab Laboratory Tests 10/20/20 02:47 Patient resulted labs reviewed. Assessment/Plan Assessment and Plan Assess & Plan/Chief Complaint Assessment from Dr Figueroa with my modifications: Acute on chronic respiratory failure -Intubated 10/17 secondary to sedation from CIWA -Vent settings: 400/24/5 -Continue Versed, Precedex and Propofol -Labs and radiology reviewed Metabolic encephalopathy -Monitor - Continue Rifaxamine Hx of alcohol dependance -[facility] protocol UTI -Continue Zosyn Acute renal failure Anemia -Monitor Hypokalemia -Labs pending GI/DVT ppx -Lovenox and Protonix Plan: Maintain vent Monitor creat 10/20/20: Monitor BP Monitor O2 ESTIVEN Whatley DO Oct 20, 2020 11:33
[2020-10-20] MEDS: MIDAZOLAM DRIP PRE-MIX 100 ML IV SCH ×2 (14:21→21:52)
[2020-10-20] MEDS ORDERED: fentaNYL DRIP PRE-MIX 250 ML IV SCH (22:30)
[2020-10-21] VITALS (27 sets, daily range): BP systolic 81–159; BP diastolic 51–124
[2020-10-21] MEDS: DexMEDEtomidine PRE MIX 100 ML IV SCH ×2 (00:04→03:12)
[2020-10-21] MEDS: inSUlin ASPART (NovoLOG) 1 UNIT/0.01 ML (CHARGE PER UNIT) SQ SCH ×5 (00:38→23:09)
[2020-10-21] MEDS ORDERED: DEXTROSE 50% 50 ML (IMS) SYR IV ONE (00:45)
[2020-10-21] MEDS ORDERED: DEXTROSE 50% 50 ML (IMS) SYR ONE (00:55)
[2020-10-21] MEDS: PIPERACILLIN/TAZOBACTAM (BULK) 4.5 GM in NS (IVPB) 100 ML IV SCH ×3 (00:56→16:54)
[2020-10-21 03:26] LABS: ABG BASE EXCESS 7.2 MMOL/L (-2.5-2.5); ABG OXYGEN SATURATION 92 % (94-100); ABG PCO2 48 MMHG (35-45); ABG PH 7.43 (7.37-7.43); ABG PO2 66 MMHG (79-93); ABG TCO2 33.2 MMOL/L (21.0-31.0); ALLENS TEST YES-POS; INSPIRED O2 30%; VENTILATOR YES
[2020-10-21 03:27] LABS: PATIENT TEMP 36.4
[2020-10-21] MEDS: RT-ALBUTEROL/IPRATROPIUM 3 ML (DUONEB) VIAL INH SCH ×7 (03:37→22:03)
--- NOTE | 2020-10-21 03:51 | Pulmonary Progress Note ---
Subjective Time Seen by a Provider: 03:44 Sepsis Event Evaluation Height, Weight, BMI Height: 6'1.00" Weight: 188lbs. 0.0oz. 85.221063eq; 25.96 BMI Method:Stated Exam Exam Vital Signs Date Time Temp Pulse Resp B/P (MAP) Pulse Ox O2 Delivery O2 Flow Rate FiO2 10/21/20 03:37 76 31 92 30 10/21/20 03:12 36.4 78 22 101/60 Mechanical Ventilator 45.00 10/21/20 00:04 36.4 83 29 95/60 96 Mechanical Ventilator 55.00 10/20/20 23:22 81 98/51 (67) 93 Mechanical Ventilator 50.00 10/20/20 22:20 87 46 93 55 10/20/20 22:00 76 33 149/98 (115) 96 Mechanical Ventilator 50.00 10/20/20 21:52 70 24 153/80 10/20/20 21:00 71 129/89 (102) 93 Mechanical Ventilator 50.00 10/20/20 20:54 70 109/73 10/20/20 20:53 69 21 109/73 92 Mechanical Ventilator 30.00 10/20/20 20:00 36.4 10/20/20 20:00 70 36 145/88 (107) 95 Mechanical Ventilator 50.00 10/20/20 20:00 95 Mechanical Ventilator 30 10/20/20 19:50 65 33 95 30 10/20/20 19:00 60 18 131/87 (102) 95 Mechanical Ventilator 50.00 10/20/20 19:00 60 10/20/20 18:00 68 34 139/85 (103) 91 Mechanical Ventilator 50.00 10/20/20 17:32 62 138/89 10/20/20 17:00 64 17 138/90 (106) 91 Mechanical Ventilator 50.00 10/20/20 16:00 68 15 121/81 (94) 93 Mechanical Ventilator 50.00 10/20/20 15:00 72 34 116/71 (86) 91 Mechanical Ventilator 50.00 10/20/20 14:44 62 26 96 40 10/20/20 14:21 64 115/77 10/20/20 14:19 64 10/20/20 14:00 63 16 112/75 (87) 96 Mechanical Ventilator 50.00 10/20/20 13:00 65 32 123/80 (94) 95 Mechanical Ventilator 50.00 10/20/20 12:55 70 10/20/20 12:00 71 35 115/81 (92) 94 Mechanical Ventilator 50.00 10/20/20 11:42 36.9 10/20/20 11:00 71 16 103/68 (80) 93 Mechanical Ventilator 50.00 10/20/20 10:13 64 27 96 40 10/20/20 10:02 64 78/51 10/20/20 10:00 65 31 91/55 (67) 96 Mechanical Ventilator 50.00 10/20/20 09:58 50.00 10/20/20 09:28 66 96/66 10/20/20 09:00 66 21 91/63 (72) 93 Mechanical Ventilator 40.00 10/20/20 08:00 67 27 99/63 (75) 94 Mechanical Ventilator 40.00 10/20/20 08:00 95 Mechanical Ventilator 40 10/20/20 07:38 36.2 10/20/20 07:00 70 26 97/68 (78) 94 Mechanical Ventilator 40.00 10/20/20 07:00 70 10/20/20 06:49 64 29 93 40 10/20/20 06:00 65 20 103/69 (80) 95 Mechanical Ventilator 40.00 10/20/20 05:09 68 116/73 10/20/20 05:00 67 20 109/72 (84) 95 Mechanical Ventilator 40.00 10/20/20 04:43 36.3 10/20/20 04:00 65 20 118/79 (92) 93 Mechanical Ventilator 40.00 I & O 10/21/20 07:00 Intake Total 3135 ml Output Total 1400 ml Balance 1735 ml Height & Weight Height: 6'1.00" Weight: 188lbs. 0.0oz. 85.973727cm; 25.96 BMI Method:Stated General Appearance: No Apparent Distress, WD/WN, Other (intubated) HEENT: PERRL/EOMI, Normal ENT Inspection Neck: Non Tender, Supple Respiratory: Lungs Clear Cardiovascular: Regular Rate, Rhythm Capillary Refill: Less Than 3 Seconds Gastrointestinal: normal bowel sounds, non tender, soft; No guarding, No rebound Extremity: Normal Capillary Refill, Non Tender Neurologic/Psychiatric: No Motor/Sensory Deficits Skin: Normal Color, Warm/Dry Results Lab Laboratory Tests 10/20/20 02:47 Assessment/Plan Assessment/Plan Acute on chronic respiratory failure -Intubated 10/17 secondary to sedation from CIWA -Vent settings: -Will attempt to wean pt. -Continue Versed, Precedex and Propofol -- Hold sedation -Labs and radiology reviewed PNA with left infiltrate -Increasing leukocytosis -Repeat [place] cultures -Continue Zosyn Metabolic encephalopathy -Monitor - Continue Rifaxamine Hx of alcohol dependance -CIWA protocol UTI -Continue Zosyn Acute renal failure Anemia -Monitor GI/DVT ppx -Lovenox and Protonix FANTA MILLER DO Oct 21, 2020 03:51
[2020-10-21 03:53] LABS: BASOPHILS % (AUTO) 2 % (0-10); EOSINOPHILS % (AUTO) 2 % (0-10); HEMATOCRIT 27 % (40-54); HEMOGLOBIN 8.7 g/dL (13.3-17.7); LYMPHOCYTES # (AUTO) 0.6 10^3/uL (1.0-4.0); LYMPHOCYTES % (AUTO) 38 % (12-44); MEAN CORPUSCULAR HEMOGLOBIN 28 pg (25-34); MEAN CORPUSCULAR HGB CONC 32 g/dL (32-36); MEAN CORPUSCULAR VOLUME 88 fL (80-99); MEAN PLATELET VOLUME 9.6 fL (9.0-12.2); MONOCYTES # (AUTO) 0.2 10^3/uL (0.0-1.0); MONOCYTES % (AUTO) 9 % (0-12); NEUTROPHILS # (AUTO) 0.6 10^3/uL (1.8-7.8); NEUTROPHILS % (AUTO) 38 % (42-75); PLATELET COUNT 223 10^3/uL (130-400); WHITE BLOOD COUNT 1.7 10^3/uL (4.3-11.0)
[2020-10-21 04:04] LABS: ALBUMIN 1.9 GM/DL (3.2-4.5); CHLORIDE 103 MMOL/L (98-107); POTASSIUM 4.1 MMOL/L (3.6-5.0); SODIUM 141 MMOL/L (135-145)
[2020-10-21 04:05] LABS: CALCIUM 7.5 MG/DL (8.5-10.1)
[2020-10-21 04:06] LABS: GLUCOSE 140 MG/DL (70-105)
[2020-10-21 04:07] LABS: CARBON DIOXIDE 30 MMOL/L (21-32)
[2020-10-21 04:08] LABS: BILIRUBIN,TOTAL 0.3 MG/DL (0.1-1.0)
[2020-10-21 04:10] LABS: ALKALINE PHOSPHATASE 163 U/L (40-136); CREATININE SERUM 0.73 MG/DL (0.60-1.30); GFR ESTIMATED > 60; PHOSPHORUS 3.2 MG/DL (2.3-4.7)
[2020-10-21 04:11] LABS: BUN/CREATININE RATIO 18
[2020-10-21 04:13] LABS: ALANINE AMINOTRANSFERASE 56 U/L (0-55); MAGNESIUM 1.7 MG/DL (1.6-2.4)
[2020-10-21] MEDS: NOREPINEPHRINE 4 MG/250 ML 250 ML IV SCH ×3 (05:06→22:19)
[2020-10-21] MEDS: KCL 20 MEQ TAB (K-DUR) PO SCH (05:13)
[2020-10-21] MEDS: MAGNESIUM 1 GM/100 ML IVPB 100 ML IV SCH (05:13)
[2020-10-21] MEDS: POTASSIUM CL 10MEQ/50ML IVPB 50 ML IV SCH (05:13)
[2020-10-21] MEDS: ENOXAPARIN 40 MG/0.4 ML (LOVENOX) SYR SC SCH (05:27)
[2020-10-21 06:52] LABS: CLARITY,URINE CLEAR; COLOR,URINE YELLOW; GLUCOSE, URINE (UA) NEGATIVE (NEGATIVE); KETONES,URINE NEGATIVE (NEGATIVE); LEUKOCYTE ESTERASE ,URINE NEGATIVE (NEGATIVE); NITRITE,URINE NEGATIVE (NEGATIVE); PROTEIN,URINE 1+ (NEGATIVE)
[2020-10-21 06:58] LABS: BACTERIA,URINE NEGATIVE /HPF; BILIRUBIN,URINE 1+ (NEGATIVE); HYALINE CASTS, URINE 0-2 /LPF; RBC,URINE 0-2 /HPF; WBC,URINE RARE /HPF
--- NOTE | 2020-10-21 07:13 | Diagnostic Imaging Report ---
EXAMINATION: Chest 1 view HISTORY: Intubation COMPARISON: Chest radiograph 10/20/2020. FINDINGS: Heart size and pulmonary vasculature are stable. Endotracheal tube and enteric catheter are unchanged. Stable low lung volumes with bibasilar atelectasis or consolidation. The osseous structures are intact. No pneumothorax or pleural effusion. IMPRESSION: 1. Stable low lung volumes with bibasilar atelectasis or consolidation. No significant change from 10/20/2020. 2. Support lines and tubes are unchanged. Dictated by: Dictated on workstation # [id number]
[2020-10-21] MEDS: RIFAXIMIN 550 MG TABLET (XIFAXAN) PO SCH ×2 (07:53→21:46)
[2020-10-21] MEDS: PANTOPRAZOLE 40 MG (PROTONIX) VIAL IV SCH (07:53)
[2020-10-21] MEDS: SPIRONOLACTONE 25 MG (ALDACTONE) TAB PO SCH (07:53)
[2020-10-21 07:59] LABS: ABG BASE EXCESS 6.8 MMOL/L (-2.5-2.5); ABG OXYGEN SATURATION 99 % (94-100); ABG PCO2 44 MMHG (35-45); ABG PH 7.46 (7.37-7.43); ABG PO2 101 MMHG (79-93); ABG TCO2 32.1 MMOL/L (21.0-31.0)
[2020-10-21 08:01] LABS: ALLENS TEST YES-POS; INSPIRED O2 50%; VENTILATOR YES
--- NOTE | 2020-10-21 08:12 | Physical Therapy Progress Note ---
Therapy Progress Note Patient remains sedated and intubated. PT will continue to monitor patient status. NANCY ALLEN PT Oct 21, 2020 08:12
--- NOTE | 2020-10-21 08:26 | NUR ---
PATIENT EXTUBATED AT 0817, PLACED ON 10L HF NASAL CANNULA, RESTRAINTS REMOVED AT THAT TIME. PATIENT ABLE TO FOLLOW COMMANDS.
--- NOTE | 2020-10-21 10:20 | NUR ---
DTR BELLE UPDATED ON PATIENT STATUS AT THIS TIME. UPDATED PT WAS EXTUBATED THIS AM, BUT VERY CONFUSED, ANSWERED DTR QUESTIONS. DTR REQUESTED TO TALK WITH PATIENT. THIS RN ASSISTED PT WITH PHONE CONVERSATION. DTR VOICED APPRECIATION.
--- NOTE | 2020-10-21 10:57 | Progress Note - Hospitalist ---
MATT MARTÍNEZ MED STUDENT 10/21/20 1057: Subjective HPI/CC On Admission Date Seen by Provider: Oct 21, 2020 Time Seen by Provider: 08:45 Subjective/Events-last exam Pt recently extubated and alert w/ mild confusion. Is comfortable lying in bed, but is thirsty and asking for a red bull. No new complaints. Objective Exam Vital Signs Vital Signs Date Time Temp Pulse Resp B/P (MAP) Pulse Ox O2 Delivery O2 Flow Rate FiO2 10/21/20 08:30 Nasal Cannula 10.00 10/21/20 08:04 37.0 10/21/20 08:00 95 40 10/21/20 08:00 107 17 101/56 (71) Capillary Refill : Less Than 3 Seconds General Appearance: No Apparent Distress, WD/WN HEENT: PERRL/EOMI, Normal ENT Inspection Neck: Non Tender, Supple Respiratory: Decreased Breath Sounds, Wheezing Cardiovascular: Regular Rate, Rhythm, Normal Peripheral Pulses Gastrointestinal: Normal Bowel Sounds, Non Tender, Soft Back: Normal Inspection, No CVA Tenderness Extremity: Normal Capillary Refill, Normal Inspection Neurologic/Psychiatric: Alert, Other (confusion) Skin: Normal Color, Warm/Dry Results/Procedures Lab Laboratory Tests 10/21/20 03:05 Patient resulted labs reviewed. Assessment/Plan Assessment and Plan Assess & Plan/Chief Complaint Assessment from Dr Figueroa with my modifications: Acute on chronic respiratory failure -Extubated 10/21/20 -Continue Versed, Precedex and Propofol -Labs and radiology reviewed Metabolic encephalopathy -Monitor - Continue Rifaxamine Hx of alcohol dependance -[place] protocol UTI -Continue Zosyn Acute renal failure Anemia -Monitor Hypokalemia -Labs pending GI/DVT ppx -Lovenox and Protonix Plan: Maintain vent Monitor creat 10/20/20: Monitor BP Monitor O2 sats 10/21/20: Monitor respiratory status Culture/CXRs to monitor for pneumonia SHABANA SOTOMAYOR DO 10/22/20 0548: Subjective Subjective/Events-last exam Pt insisting on getting a Red Bull Just extubated today Difficult talking because of the endotracheal tube vocal cord dysfunction WC did decrease from 12.4 to 1.7 Pt is very disrespectful and angry Objective Exam General Appearance: No Apparent Distress, WD/WN, Anxious, Chronically ill Respiratory: Lungs Clear Cardiovascular: Regular Rate, Rhythm Neurologic/Psychiatric: Alert, Oriented x3 Assessment/Plan Assessment and Plan Assess & Plan/Chief Complaint Extubated Monitor anger Supervisory-Addendum Brief Verification & Attestation Participated in pt care: history, MDM, physical Personally performed: exam, history, MDM, supervision of care Care discussed with: Medical Student Procedures: n/a Results interpretation: Verified all documentation Verification and Attestation of Medical Student E/M Service A medical student performed and documented this service in my presence. I reviewed and verified all information documented by the medical student and made modifications to such information, when appropriate. I personally performed the physical exam and medical decision making. Shabana Sotomayor, Oct 22, 2020,05:47 MATT MARTÍNEZ MED STUDENT Oct 21, 2020 10:57 SHABANA SOTOMAYOR DO Oct 22, 2020 05:48
--- NOTE | 2020-10-21 11:55 | Physical Therapy Evaluation ---
PT Evaluation-General Medical Diagnosis Admission Date Oct 15, 2020 at 20:50 Medical Diagnosis: AMS/alcohol withdrawl, dehydration Onset Date: Oct 15, 2020 Therapy Diagnosis Therapy Diagnosis: generalized weakness/debility Height/Weight Height (Feet): 6 Height (Inches): 1.00 Weight (Pounds): 188 Weight (Ounces): 0.0 Precautions Precautions/Isolations: Aspiration, Fall Prevention, Standard Precautions, Pressure Ulcer Referral Physician: Temo Reason for Referral: Evaluation/Treatment Medical History Pertinent Medical History: Alcoholism Current History 60 yo M with extensive alcohol history that presented with altered mental status. Family states that he had been sober for about 60 days prior to 2 weeks ago and then went on binge and has been drinking heavily for the last 2 weeks. Patient is unable to give any history. Family is not sure if he has fell or hit his head but arms are covered in bruising Source: family Reviewed History: Yes Social History patient unable to give home environment history Prior Prior Level of Function SCALE: Activities may be completed with or without assistive devices. 4-Twalvilwdc-shcodsb completes the activity by him/herself with no assistance from a helper. 5-Set-up or Clean-up Assistance-helper sets up or cleans up; patient completes activity. [place] assists only prior to or following the activity. 4-Supervision or Touching Assistance-helper provides verbal cues and/or touching/steadying and/or contact guard assistance as patient completes activity. Assistance may be provided throughout the activity or intermittently. 3-Partial/Moderate Assistance-helper does LESS THAN HALF the effort. [place] lifts, holds or supports trunk or limbs, but provides less than half the effort. 2-Substantial/Maximal Assistance-helper does MORE THAN HALF the effort. [place] l ifts or holds trunk or limbs and provides more than half the effort. 4-Fxjpcyoks-yaqraq does ALL the effort. Patient does none of the effort to complete the activity. Or, the assistance of 2 or more helpers is required for the patient to complete the activity. If activity was not attempted, code reason: 7-Patient Refused. 9-Not Applicable-not attempted and the patient did not perform the activity before the current illness, exacerbation or injury. 10-Not Attempted due to Environmental Limitations-(lack of equipment, weather restraints, etc.). 88-Not Attempted due to Medical Conditions or Safety Concerns. Bed Mobility: 6 Transfers (B,C,W/C): 6 Gait: 6 Stairs: 6 Indoor Mobility (Ambulation): Independent Stairs: Independent Prior Devices Use: None PT Evaluation-Current Subjective Patient is very verbal and demanding water. PT attempted to redirect patient, however, patient became highly agitated. Objective Patient Orientation: Confused Attachments: Oxygen, [place] Catheter, IV rectal tube ROM/Strength ROM Lower Extremities bilateral LE WFL Strength Lower Extremities 3-/5 grossly bilateral LE Integumentary/Posture Integumentary refer to nursing notes Bladder Incontinence: Sibley Cath Neuromuscular (Tone, Coordination, Reflexes) diminished due to extubated this a.m. Sensory Vision: Functional Hearing: Functional Transfers Roll Left to Right (QC): 2 Gait Does the Patient Walk?: No and Walking Goal IS indicated Assessment/Needs 60 y.o. male, will benefit from skilled PT to address functional strength and mobility to improve current LOF. Patient extubated this morning. PT will continue assessment in a.m. Rehab Potential: Guarded Post Rehab Potential-Barriers: compliance PT [facility] Goals Medicare Specialist Goals PT Medicare Specialist Goals Time Frame: Nov 02, 2020 Roll Left & Right (QC): 6 Sit to Lying (QC): 6 Lying-Sitting on Side/Bed(QC): 6 Sit to Stand (QC): 6 Chair/Vil-re-Xjvck Xfer(QC): 6 Toilet Transfer (QC): 6 Car Transfer (QC): 6 Does the Patient Walk: Yes Walk 10 feet (QC): 6 Walk 50ft with 2 Turns (QC): 6 Walk 150 ft (QC): 6 PT Plan Problem List Problem List: Activity Tolerance, Functional Strength, Safety, Balance, Gait, Transfer, Bed Mobility Treatment/Plan Treatment Plan: Continue Plan of Care Treatment Plan: Bed Mobility, Education, Functional Activity Danna, Functional Strength, Gait, Safety, Therapeutic Exercise, Transfers Treatment Duration: Nov 02, 2020 Frequency: 6 times per week Estimated Hrs Per Day: .25 hour per day Time/GCodes Time In: 1122 Time Out: 1131 Total Billed Treatment Time: 9 Total Billed Treatment 1 visit EVModC 9 min NANCY ALLEN PT Oct 21, 2020 11:55
--- NOTE | 2020-10-21 14:59 | NUR ---
CM/SS: Daughter (Carolina) requested to talk with pt and this worker took the cell phone in room and called daughter Carolina. This worker messaged her prior and requested that she encourage pt to be cooperative, work with staff, and nice and not to cuss at staff as well. Daughter is able to talk to pt and does encouraged him to work with everyone so that he can get to feeling better. Pt does thank this worker for letting him talk with is daughter. This worker will follow up.
--- NOTE | 2020-10-21 15:21 | ST Dysphagia Evaluation ---
Speech Evaluation-General Medical Diagnosis AMS/alcohol withdrawl, dehydration Onset Date: Oct 15, 2020 Therapy Diagnosis Therapy Diagnosis: Oropharyngeal Dysphagia Precautions Precautions: Aspiration Precautions/Isolations: Aspiration Referral Referring Physician: Dr. Figueroa Medical History Pertinent Medical History: Alcoholism Reviewed History: Yes Speech PLF/Current-Dysphagia Prior Level of Function Patient's prior living conditions are unknown. Medical records indicate the patient was alcohol dependent. Subjective Patient was cooperative with the Bedside Dysphagia Evaluation. Oral Motor Skills Dentition: Natural, Tumbled, Stained Patient was NPO pending BDE. Oral Expression Ability: Moderate Impairment Patient was mumbling during the course of answering questions, speech was difficult to understand. Voice Voice Phonatory-Based Quality: Breathy, Hoarse, Weak Voice Pitch: Mildly Low Voice Loudness: Mildly Soft/Quiet Face Facial Symmetry: Symmetrical Oral-Facial Assessment Oral-Facial Dentition: Normal Labial Seal Description: Normal Smile: Normal Lingual Protrusion: Normal Lingual ROM: Normal Lingual Strength: Normal Pharynx Velopharyngeal Move.: Normal Volitional Dry Swallow: Yes Voluntary Cough: Yes Can Clear Throat Volitionally: Yes Dysphagia Evaluation Consistencies Presented: Regular, Thin Liquid, Mechanical Soft, Pureed Oral phase was within normal range of function for all consistencies presented. Pharyngeal phase was within normal range of function for all consistencies presented. Dietary Recommendations: Regular Liquid Recommendations: Thin Swallowing Precautions: Alternate Liquids/Solids, Double Swallow, Decreased Bolus 1/2 Tsp, Liquids from Straw, Small Bites and Sips, Sitting Upright 90 Degrees, Sitting 90 Degrees 30 Post Intake Dysphagia Evaluation Summary Patient was referred for a BDE by Dr. Figueroa who extubated the patient today. The patient was evaluated with the following presentations: thin liquids via 1/2 tsp x2 and via straw x3 without difficulty. Patient was also presented with 1/2 tsp bite size of puree, mechanical soft and regular without difficulty. The patient consumed the small cup of applesauce while I was present, stated "I haven't eaten in 5 days". Patient is recommended for regular consistency diet with thin liquids. This information was provided to his nurse as well as written on the white board in his room. Barriers to Learning Patient's cognition is noted to be decreased with some confusion noted. Speech-Plan Patient/Family Goals Patient/Family Goals: Patient's discharge plans are unknown at this time. Treatment Plan Speech Therapy Treatment Plan: Discontinue ST Treatment Duration: Oct 21, 2020 Frequency: 1 time per week Estimated Hrs Per Day: .25 hour per day Rehab Potential: Guarded Barriers to Learning: Patient's cognition is noted to be decreased with some confusion noted. Pt/Family Agrees to Plan: Yes Safety Risks/Education Teaching Recipient: Patient Teaching Methods: Discussion Response to Teaching: Verbalize Understanding, Reinforcement Needed Education Topics Provided: Safety strategies for oral intake, diet levels Time Speech Therapy Time In: 11:30 Speech Therapy Time Out: 11:50 Total Billed Time: 20 Billed Treatment Time 1, DRAGAN, DYST BREANN Alatorre Oct 21, 2020 15:21
--- NOTE | 2020-10-21 15:45 | NUR ---
SPOKE WITH THE PT (CALLED ROOM PHONE) TO COMPLETE THE MED REC PT WAS NOT ABLE TO GIVE ME ANY INFORMATION ABOUT RX OR OTC MEDS. I ASKED SEVERAL DIFFERENT WAYS AND HE KEPT STEERING THE CONVERSATION TOWARDS NEEDING SOMETHING TO DRINK, WANTING A SNICKERS BAR AND FEELING LIKE HE NEEDED A BREATHING TREATMENT. I WOULD ASK ABOUT MEDICATIONS RX OR OTC HE WOULD MUMBLE "NO NO NO" AND THEN WOULD KEEP ASKING FOR ONE OF THE REQUESTS I LISTED ABOVE. FOR THIS REASON I SET THE MED REC TO NO MEDICATIONS
[2020-10-21] MEDS: LORazepam INJ 2 MG/ML (ATIVAN) VIAL IVP PRN ×3 (16:48→21:46)
[2020-10-21] MEDS: LORazepam INJ 2 MG/ML (ATIVAN) VIAL IV PRN (23:10)
[2020-10-22] VITALS (23 sets, daily range): BP systolic 76–157; BP diastolic 42–89
[2020-10-22] MEDS: LORazepam INJ 2 MG/ML (ATIVAN) VIAL IV PRN ×7 (00:06→23:04)
[2020-10-22] MEDS: RT-ALBUTEROL/IPRATROPIUM 3 ML (DUONEB) VIAL INH SCH ×6 (02:14→21:19)
[2020-10-22] MEDS: PIPERACILLIN/TAZOBACTAM (BULK) 4.5 GM in NS (IVPB) 100 ML IV SCH ×4 (02:47→23:30)
[2020-10-22] MEDS ORDERED: IBUPROFEN TABLET 200 MG TAB PO ONE (03:15)
[2020-10-22 03:38] LABS: HEMOGLOBIN 8.8 g/dL (13.3-17.7); MEAN CORPUSCULAR VOLUME 84 fL (80-99)
[2020-10-22 03:40] LABS: BASOPHILS % (AUTO) 0 % (0-10); EOSINOPHILS # (AUTO) 0.1 10^3/uL (0.0-0.3); EOSINOPHILS % (AUTO) 1 % (0-10); HEMATOCRIT 26 % (40-54); LYMPHOCYTES # (AUTO) 1.7 10^3/uL (1.0-4.0); LYMPHOCYTES % (AUTO) 19 % (12-44); MEAN CORPUSCULAR HEMOGLOBIN 28 pg (25-34); MEAN CORPUSCULAR HGB CONC 34 g/dL (32-36); MEAN PLATELET VOLUME 9.6 fL (9.0-12.2); MONOCYTES # (AUTO) 0.5 10^3/uL (0.0-1.0); MONOCYTES % (AUTO) 6 % (0-12); NEUTROPHILS # (AUTO) 6.7 10^3/uL (1.8-7.8); NEUTROPHILS % (AUTO) 72 % (42-75); PLATELET COUNT 316 10^3/uL (130-400); WHITE BLOOD COUNT 9.3 10^3/uL (4.3-11.0)
[2020-10-22 03:48] LABS: ALBUMIN 2.1 GM/DL (3.2-4.5); CHLORIDE 100 MMOL/L (98-107); POTASSIUM 3.3 MMOL/L (3.6-5.0); SODIUM 132 MMOL/L (135-145)
[2020-10-22 03:49] LABS: CALCIUM 7.3 MG/DL (8.5-10.1)
[2020-10-22 03:50] LABS: GLUCOSE 112 MG/DL (70-105); TOTAL PROTEIN 5.4 GM/DL (6.4-8.2)
[2020-10-22 03:51] LABS: CARBON DIOXIDE 22 MMOL/L (21-32)
[2020-10-22 03:52] LABS: BILIRUBIN,TOTAL 0.5 MG/DL (0.1-1.0)
[2020-10-22 03:53] LABS: PHOSPHORUS 1.7 MG/DL (2.3-4.7)
[2020-10-22 03:54] LABS: ALKALINE PHOSPHATASE 211 U/L (40-136); CREATININE SERUM 0.58 MG/DL (0.60-1.30); GFR ESTIMATED > 60
[2020-10-22 03:55] LABS: BUN/CREATININE RATIO 12
[2020-10-22 03:57] LABS: ALANINE AMINOTRANSFERASE 75 U/L (0-55); MAGNESIUM 1.5 MG/DL (1.6-2.4)
--- NOTE | 2020-10-22 05:09 | Pulmonary Progress Note ---
Subjective Time Seen by a Provider: 05:04 Subjective/Events-last exam Pt is very confused Sepsis Event Evaluation Height, Weight, BMI Height: 6'1.00" Weight: 188lbs. 0.0oz. 85.921278ac; 25.96 BMI Method:Stated Exam Exam Vital Signs Date Time Temp Pulse Resp B/P (MAP) Pulse Ox O2 Delivery O2 Flow Rate FiO2 10/22/20 04:12 37.5 10/22/20 03:47 37.9 10/22/20 03:20 38.4 10/22/20 03:20 38.4 10/22/20 03:00 118 35 157/84 (108) 90 OxyMask 10.00 10/22/20 02:16 92 OxyMask 10.00 10/22/20 02:00 111 21 118/68 (85) 92 OxyMask 10.00 10/22/20 01:00 105 122/77 (92) 91 OxyMask 10.00 10/22/20 00:00 115 38 136/89 (105) 91 OxyMask 10.00 10/21/20 23:00 113 15 156/98 (117) 95 OxyMask 10.00 10/21/20 22:03 95 OxyMask 10.00 10/21/20 22:00 106 31 140/100 (113) 95 OxyMask 10.00 10/21/20 21:11 102 10/21/20 21:00 101 22 145/86 (105) 94 OxyMask 10.00 10/21/20 20:15 OxyMask 10.00 10/21/20 20:00 103 21 130/71 (90) 96 Nasal Cannula 5.00 10/21/20 20:00 95 OxyMask 10.00 10/21/20 19:39 36.8 10/21/20 19:30 90 High Flow N/C 7.00 10/21/20 19:00 102 159/84 (109) Nasal Cannula 5.00 10/21/20 18:00 31 149/81 (103) 95 Nasal Cannula 5.00 10/21/20 17:16 Nasal Cannula 5.00 10/21/20 17:05 98 High Flow N/C 10.00 10/21/20 17:00 26 104/86 (92) 95 Nasal Cannula 10.00 10/21/20 16:12 36.8 10/21/20 16:00 16 151/74 (99) 95 Nasal Cannula 10.00 10/21/20 15:00 98 20 93 Nasal Cannula 10.00 10/21/20 14:55 91 High Flow N/C 10.00 10/21/20 14:00 98 20 93 Nasal Cannula 10.00 10/21/20 13:00 102 42 142/124 (130) 94 Nasal Cannula 10.00 10/21/20 12:42 96 10/21/20 12:00 88 32 134/97 (109) 91 Nasal Cannula 10.00 10/21/20 11:33 92 High Flow N/C 10.00 10/21/20 11:00 99 19 117/71 (86) 83 Nasal Cannula 10.00 10/21/20 10:00 98 27 100/67 (78) 93 Nasal Cannula 10.00 10/21/20 09:00 101 25 108/60 (76) 93 Nasal Cannula 10.00 10/21/20 08:30 Nasal Cannula 10.00 10/21/20 08:04 37.0 10/21/20 08:00 95 Mechanical Ventilator 40 10/21/20 08:00 107 17 101/56 (71) 95 Mechanical Ventilator 40.00 10/21/20 07:00 108 35 113/65 (81) 96 Mechanical Ventilator 40.00 10/21/20 06:58 105 27 95 50 10/21/20 06:37 105 10/21/20 06:00 93 36 92/55 (67) 91 Mechanical Ventilator 40.00 10/21/20 05:15 100 33 94/56 (69) 93 Mechanical Ventilator 40.00 10/21/20 05:05 98 37 84/58 (67) 92 Mechanical Ventilator 40.00 I & O 10/22/20 07:00 Intake Total 1800 ml Output Total 3500 ml Balance -1700 ml Height & Weight Height: 6'1.00" Weight: 188lbs. 0.0oz. 85.068749ca; 25.96 BMI Method:Stated General Appearance: No Apparent Distress, WD/WN HEENT: PERRL/EOMI, Normal ENT Inspection Neck: Non Tender, Supple Respiratory: Decreased Breath Sounds, Wheezing Cardiovascular: Regular Rate, Rhythm, Normal Peripheral Pulses Capillary Refill: Less Than 3 Seconds Gastrointestinal: normal bowel sounds, non tender, soft; No guarding, No rebound Extremity: Normal Capillary Refill, Normal Inspection Neurologic/Psychiatric: Alert, Other (confusion) Skin: Normal Color, Warm/Dry Results Lab Laboratory Tests 10/21/20 03:05 10/22/20 03:25 Assessment/Plan Assessment/Plan Acute on chronic respiratory failure -Extubated yesterday -Labs and radiology reviewed PNA with left infiltrate -Repeat [place] cultures - pending -Continue Zosyn Metabolic encephalopathy -Monitor - Continue Rifaxamine Hx of alcohol dependance -[place] protocol -Add Precedex UTI -Continue Zosyn Acute renal failure Anemia -Monitor GI/DVT ppx -Lovenox and Protonix FANTA MILLER DO Oct 22, 2020 05:09
[2020-10-22] MEDS ORDERED: DexMEDEtomidine 250 ML DRIP 250 ML IV SCH (05:15)
[2020-10-22] MEDS ORDERED: POTASSIUM PHOSPHATE INJ 30 MM in NS (IVPB) 250 ML IV ONE ×2 (05:15→10:00)
[2020-10-22] MEDS: MAGNESIUM 1 GM/100 ML IVPB 100 ML IV SCH ×4 (05:45→07:59)
[2020-10-22] MEDS: LACTATED RINGERS 1,000 ML IV SCH (05:45)
[2020-10-22] MEDS: POTASSIUM CL 10MEQ/50ML IVPB 50 ML IV SCH ×3 (05:45→06:53)
[2020-10-22] MEDS: DexMEDEtomidine PRE MIX 100 ML IV SCH (05:47)
[2020-10-22] MEDS: KCL 20 MEQ TAB (K-DUR) PO SCH (05:52)
[2020-10-22] MEDS: ENOXAPARIN 40 MG/0.4 ML (LOVENOX) SYR SC SCH (05:52)
[2020-10-22] MEDS: inSUlin ASPART (NovoLOG) 1 UNIT/0.01 ML (CHARGE PER UNIT) SQ SCH ×4 (05:53→19:54)
[2020-10-22] MEDS: NOREPINEPHRINE 4 MG/250 ML 250 ML IV SCH ×3 (05:53→22:51)
--- NOTE | 2020-10-22 06:17 | Diagnostic Imaging Report ---
INDICATION: Fever. TECHNIQUE: Single view chest 3:58 AM. CORRELATION STUDY: 10/21/2020 FINDINGS: Interval extubation and removal of the gastric tube. Heart size remains enlarged. Mediastinum prominent. Opacities in the mid and lower lung feldman are again demonstrated. Overall appearing stable on the left and increased on the right. Somewhat irregular collection at the right lung base. Old healed left clavicle fracture. IMPRESSION: 1. Interval extubation. 2. Bilateral pulmonary opacities, favoring infiltrate versus potential atelectasis particularly at the mid and lower lung field. Overall likely relatively stable on the left and increased on the right. Dictated by: Dictated on workstation # [id number]
[2020-10-22] MEDS: PANTOPRAZOLE 40 MG (PROTONIX) VIAL IV SCH (08:00)
[2020-10-22] MEDS: SPIRONOLACTONE 25 MG (ALDACTONE) TAB PO SCH (08:00)
[2020-10-22] MEDS: RIFAXIMIN 550 MG TABLET (XIFAXAN) PO SCH ×2 (08:00→19:48)
--- NOTE | 2020-10-22 08:42 | Occupational Therapy Eval ---
OT Evaluation-General/PLF Medical Diagnosis Admission Date Oct 15, 2020 at 20:50 Medical Diagnosis: AMS/alcohol withdrawl, dehydration Onset Date: Oct 15, 2020 Therapy Diagnosis Therapy Diagnosis: Decreased ADL status Height/Weight Height (Feet): 6 Height (Inches): 1.00 Weight (Pounds): 188 Weight (Ounces): 0.0 Precautions Precautions/Isolations: Aspiration, Fall Prevention, Standard Precautions, Pressure Ulcer Weight Bear Status Weight Bearing Restriction: Weight Bearing/Tolerated Referral Physician: Temo Referral Reason: Activity Tolerance, Self Care, Evaluation/Treatment, Strengthening/ROM Medical History Pertinent Medical History: Alcoholism Current History H/o alcohol dependency. Sober 60 days, then, per family report, drank for 2 week s. Admits with AMS/ alcohol withdrawal, and dehydration. Bruises on arms/ legs, unsure of fall. Pt intubated 10/18-10/21. Extubated morning of 10/21. Reviewed History: Yes Social History Home: Single Level Current Living Status: Alone Entry Into Home: Stairs With Railing ADL-Prior Level of Function SCALE: Activities may be completed with or without assistive devices. 1-Tlswwrkzbk-xhxtckp completes the activity by him/herself with no assistance from a helper. 5-Set-up or Clean-up Assistance-helper sets up or cleans up; patient completes activity. [place] assists only prior to or following the activity. 4-Supervision or Touching Assistance-helper provides verbal cues and/or touching/steadying and/or contact guard assistance as patient completes activi ty. Assistance may be provided throughout the activity or intermittently. 3-Partial/Moderate Assistance-helper does LESS THAN HALF the effort. [place] lifts, holds or supports trunk or limbs, but provides less than half the effort. 2-Substantial/Maximal Assistance-helper does MORE THAN HALF the effort. [place] lifts or holds trunk or limbs and provides more than half the effort. 0-Qzjxotjte-pbgmwr does ALL the effort. Patient does none of the effort to complete the activity. Or, the assistance of 2 or more helpers is required for the patient to complete the activity. If activity was not attempted, code reason: 7-Patient Refused. 9-Not Applicable-not attempted and the patient did not perform the activity before the current illness, exacerbation or injury. 10-Not Attempted due to Environmental Limitations-(lack of equipment, weather restraints, etc.). 88-Not Attempted due to Medical Conditions or Safety Concerns. ADL PLOF Comments Pt states was IND with daily tasks, no use of AD. Pt unclear on whether pt drives. states daughter assists with grocery shopping/ cooking tasks. Self Care: Needed Some Help Functional Cognition: Independent Occupation: retired. OT Current Status Subjective Pt's nurse present in room upon entry. Pt is alert. Pt agrees to tx, stating desire/ eagerness to get out of bed. Pt denies pain. Mental Status/Objective Patient Orientation: Person Attachments: Sibley Catheter, IV, Oxygen (9L), Telemetry Current Glasses/Contacts: No Hearing Aids: No Dentures/Partials: No Hand Dominance: Right Upper Extremity ROM Decreased due to weakness, full PROM reached bilaterally. Upper Extremity Coordination Delayed, though functional Upper Extremity Sensation DNT Upper Extremity Strength Decreased bilaterally: shoulder flexion 2/5, elbow flexion 3/5, wrist/ hand 4/5. Edema: slight UE ADL-Treatment Eating (QC): 4 (requires encouragement and supervision during tasks. Encouragement for head elevation and safety during feeding. ) Upper Body Dressing (QC): 1 (per nursing unit clerk, pt did not assist in bathing on this date. Pt is given cloth and instructions to wash face, pt able to reach all areas of face, though, per clinical judgment, will require Ax2 for bottom care when in stance post BM/ for bathing.) Lower Body Dressing (QC): 1 (per clinical judgment, pt will need Ax2 at this time to safely sit to stand/ address pant hike. ) On/Off Footwear (QC): 2 (Pt able to slightly extend knees / able to flex hips to allow OT to place socks on. ) Other Treatments Pt agrees to get out of bed. Able to answer some hx questions/ home environment questions. Pt bed mob with max A. Sits EOB ~3 min, supervision throughout. Unable to maintain erect posture EOB. Pt is concerned of lines/ IVs throughout tx, stating he needs them/ ensure not to pull them out. Pt is ensured they will stay in tact. Pt SPT to recliner with PT assist (see PT notes). Sits in recliner with neck forward flexed, requires cues for elongation. Pt is instructed in UE AROM for active strengthening tasks. Pt return demonstrates, cues for completing only 2 reps at a time based on current abilities/ ( O2 maintains 90% during overhead tasks, though desire SUP during overhead abilities). Pt's 02 decreases to high 80's% during treatment as 02 is doffed/ donned to align pt/ cords. Pt sits in recliner with food in front of him, able to self feed 2x (shepherd, water cup). Pt left with nurse aide with all needs met, call light in reach. Education OT Patient Education: Correct positioning, Exercise program, Home exercise program, Purpose of tx/functional activities, Safety issues Teaching Recipient: Patient Teaching Methods: Demonstration, Discussion Response to Teaching: Verbalize Understanding, Return Demonstration, Reinforcement Needed OT Short Term Goals Short Term Goals Eatin Oral hygiene: 5 Toileting hygiene: 2 Shower/bathe self: 2 Upper body dressin Lower body dressin Putting on/taking off footwear: 3 OT Mcc Goals Ehs Manager Goals Time Frame: Oct 29, 2020 Eating (QC): 6 Oral Hygiene (QC): 6 Toileting Hygiene (QC): 4 Shower/Bathe Self (QC): 4 Upper Body Dressing (QC): 6 Lower Body Dressing (QC): 3 On/Off Footwear (QC): 4 Additional Goals: 1-Demonstrate ADL Tasks, 2-Verbalize Understanding, 3-ImproveStrength/Danna 1=Demonstrate adherence to instructed precautions during ADL tasks. 2=Patient will verbalize/demonstrate understanding of assistive devices/modifications for ADL. 3=Patient will improve strength/tolerance for activity to enable patient to perf orm ADL's. OT Education/Plan Problem List/Assessment Assessment: Decreased Activ Tolerance, Decreased UE Strength, Dependent Transfers, Edema, Impaired Bed Mobility, Impaired Cognition, Impaired Coordination, Impaired Funct Balance, Impaired I ADL's, Impaired Self-Care Skills, Restricted Funct UE ROM Discharge Recommendations Plan/Recommendations: Continue POC Therapy Discharge Recommendati: Scheduled Assistance, Post Acute OT Treatment Plan/Plan of Care Treatment,Training & Education: Yes Patient would benefit from OT for education, treatment and training to promote independence in ADL's, mobility, safety and/or upper extremity function for ADL's. Plan of Care: ADL Retraining, Caregiver Training, Functional Mobility, UE Funct Exercise/Act, UE Neuromus Re-Ed/Coord Treatment Duration: Oct 29, 2020 Frequency: 5 times per week Estimated Hrs Per Day: .25 hour per day Agreement: Yes Rehab Potential: Fair Time/GCodes Start Time: 08:07 Stop Time: 08:25 Total Time Billed (hr/min): 18 Billed Treatment Time 1, EVM (18) KARTHIK SANDOVAL OTR Oct 22, 2020 08:42
--- NOTE | 2020-10-22 09:28 | Physical Therapy Daily Note ---
PT Daily Note-Current Subjective Patient more alert and cooperative on this date. Mental Status Patient Orientation: Person, Situation Attachments: Oxygen, Sibley Catheter, IV Transfers SCALE: Activities may be completed with or without assistive devices. 0-Jpdzdlykpz-ruxmfmd completes the activity by him/herself with no assistance from a helper. 5-Set-up or Clean-up Assistance-helper sets up or cleans up; patient completes activity. [place] assists only prior to or following the activity. 4-Supervision or Touching Assistance-helper provides verbal cues and/or touching/steadying and/or contact guard assistance as patient completes ac tivity. Assistance may be provided throughout the activity or intermittently. 3-Partial/Moderate Assistance-helper does LESS THAN HALF the effort. [place] lifts, holds or supports trunk or limbs, but provides less than half the effort. 2-Substantial/Maximal Assistance-helper does MORE THAN HALF the effort. [place] lifts or holds trunk or limbs and provides more than half the effort. 1-Wysumixdt-xczryz does ALL the effort. Patient does none of the effort to complete the activity. Or, the assistance of 2 or more helpers is required for the patient to complete the activity. If activity was not attempted, code reason: 7-Patient Refused. 9-Not Applicable-not attempted and the patient did not perform the activity before the current illness, exacerbation or injury. 10-Not Attempted due to Environmental Limitations-(lack of equipment, weather restraints, etc.). 88-Not Attempted due to Medical Conditions or Safety Concerns. Lying to Sitting/Side of Bed(Q: 3 Sit to Stand (QC): 2 Chair/Ize-jf-Eymwc Xfer(QC): 2 PT assist with sit to stand and SPT bed to recliner (patient has difficulty with standing erect. Noted cervical flexion in stand and seated position.) Gait Training Does the Patient Walk?: No and Walking Goal IS indicated Exercises Seated Therapy Exercises: Ankle pumps, Long arc quads, Hip flexion Seated Reps: 12 (education with patient on performing PRN in recliner. ) Treatments live sitter present/[place] with OT due to complexity of patient status Assessment Patient tolerates minimal activity and requires redirection to remain on task. PT to increase activity as tolerated by patient. PT Longterm Goals Department [employer] Chair Goals PT Longterm Goals Time Frame: Nov 02, 2020 Roll Left & Right (QC): 6 Sit to Lying (QC): 6 Lying-Sitting on Side/Bed(QC): 6 Sit to Stand (QC): 6 Chair/Cvp-kj-Ebsmy Xfer(QC): 6 Toilet Transfer (QC): 6 Car Transfer (QC): 6 Does the Patient Walk: Yes Walk 10 feet (QC): 6 Walk 50ft with 2 Turns (QC): 6 Walk 150 ft (QC): 6 PT Plan Treatment/Plan Treatment Plan: Continue Plan of Care Treatment Plan: Bed Mobility, Education, Functional Activity Danna, Functional Strength, Gait, Safety, Therapeutic Exercise, Transfers Treatment Duration: Nov 02, 2020 Frequency: 6 times per week Estimated Hrs Per Day: .25 hour per day Patient and/or Family Agrees t: Yes Time/GCodes Time In: 802 Time Out: 815 Total Billed Treatment Time: 13 Total Billed Treatment 1 visit FA 13 min NANCY ALLEN PT Oct 22, 2020 09:28
--- NOTE | 2020-10-22 10:00 | Progress Note - Hospitalist ---
MATT MARTÍNEZ MED STUDENT 10/22/20 1000: Subjective HPI/CC On Admission Date Seen by Provider: Oct 22, 2020 Time Seen by Provider: 08:15 Subjective/Events-last exam Pt comfortable sitting up in chair More alert and less confused since yesterday SOB and cough has subsided Pt has began drinking and eating small amounts Objective Exam Vital Signs Vital Signs Date Time Temp Pulse Resp B/P (MAP) Pulse Ox O2 Delivery O2 Flow Rate FiO2 10/22/20 08:00 88 12 102/69 (80) 94 OxyMask 10.00 10/22/20 05:47 37.0 10/21/20 08:00 40 Capillary Refill : Less Than 3 Seconds General Appearance: No Apparent Distress, WD/WN HEENT: PERRL/EOMI, Normal ENT Inspection Neck: Non Tender, Supple Respiratory: Chest Non Tender, Lungs Clear Cardiovascular: Regular Rate, Rhythm, Normal Peripheral Pulses Gastrointestinal: Normal Bowel Sounds, Non Tender, Soft Back: Normal Inspection, No CVA Tenderness Extremity: Normal Capillary Refill, Normal Inspection Neurologic/Psychiatric: Alert, Oriented x3, No Motor/Sensory Deficits Skin: Normal Color, Warm/Dry Results/Procedures Lab Laboratory Tests 10/22/20 03:25 Patient resulted labs reviewed. Assessment/Plan Assessment and Plan Assess & Plan/Chief Complaint Assessment from Dr Figueroa with my modifications: Acute on chronic respiratory failure -Extubated 10/21/20 -Continue Versed, Precedex and Propofol -Labs and radiology reviewed Metabolic encephalopathy -Monitor - Continue Rifaxamine Hx of alcohol dependance -[facility] protocol UTI -Continue Zosyn Acute renal failure Anemia -Monitor Hypokalemia -Labs pending GI/DVT ppx -Lovenox and Protonix Plan: Maintain vent Monitor creat 10/20/20: Monitor BP Monitor O2 sats 10/21/20: Monitor respiratory status Culture/CXRs to monitor for pneumonia 10/22/20: PT/OT SHABANA AQUINO DO 10/23/20 0537: Subjective Subjective/Events-last exam Pt requires one on one Pt appears to be much improved Talking better Able to eat and drink a bit Sibley catheter in place Lethargy still currently present Assessment/Plan Assessment and Plan Assess & Plan/Chief Complaint 10/22/20: PT OT Monitor closely DC catheter soon Supervisory-Addendum Brief Verification & Attestation Participated in pt care: history, MDM, physical Personally performed: exam, history, MDM, supervision of care Care discussed with: Medical Student Procedures: n/a Results interpretation: Verified all documentation Verification and Attestation of Medical Student E/M Service A medical student performed and documented this service in my presence. I reviewed and verified all information documented by the medical student and made modifications to such information, when appropriate. I personally performed the physical exam and medical decision making. Shabana Aquino, Oct 23, 2020,05:37 MATT MARTÍNEZ MED STUDENT Oct 22, 2020 10:00 SHABANA AQUINO DO Oct 23, 2020 05:37
--- NOTE | 2020-10-22 20:35 | NUR ---
SPOKE W AND UPDATED PT DAUGHTER BELLE. QUESTIONS AND CONCERNS WERE ADDRESSED AT THIS TIME.
[2020-10-23] VITALS (25 sets, daily range): BP systolic 92–116; BP diastolic 51–88
[2020-10-23] MEDS: LACTATED RINGERS 1,000 ML IV SCH (02:10)
[2020-10-23] MEDS: RT-ALBUTEROL/IPRATROPIUM 3 ML (DUONEB) VIAL INH SCH ×4 (02:27→19:25)
[2020-10-23] MEDS: LORazepam INJ 2 MG/ML (ATIVAN) VIAL IV PRN ×5 (03:13→20:01)
[2020-10-23] MEDS: ENOXAPARIN 40 MG/0.4 ML (LOVENOX) SYR SC SCH (03:13)
[2020-10-23 03:49] LABS: BASOPHILS % (AUTO) 0 % (0-10); EOSINOPHILS # (AUTO) 0.1 10^3/uL (0.0-0.3); EOSINOPHILS % (AUTO) 2 % (0-10); HEMATOCRIT 25 % (40-54); HEMOGLOBIN 8.3 g/dL (13.3-17.7); LYMPHOCYTES # (AUTO) 1.6 10^3/uL (1.0-4.0); LYMPHOCYTES % (AUTO) 18 % (12-44); MEAN CORPUSCULAR HEMOGLOBIN 29 pg (25-34); MEAN CORPUSCULAR HGB CONC 33 g/dL (32-36); MEAN CORPUSCULAR VOLUME 86 fL (80-99); MEAN PLATELET VOLUME 9.4 fL (9.0-12.2); MONOCYTES # (AUTO) 0.6 10^3/uL (0.0-1.0); MONOCYTES % (AUTO) 6 % (0-12); NEUTROPHILS # (AUTO) 6.5 10^3/uL (1.8-7.8); NEUTROPHILS % (AUTO) 71 % (42-75); PLATELET COUNT 319 10^3/uL (130-400); WHITE BLOOD COUNT 9.1 10^3/uL (4.3-11.0)
[2020-10-23 04:15] LABS: ALBUMIN 2.1 GM/DL (3.2-4.5); CHLORIDE 105 MMOL/L (98-107); POTASSIUM 4.1 MMOL/L (3.6-5.0); SODIUM 134 MMOL/L (135-145)
[2020-10-23 04:16] LABS: CALCIUM 7.3 MG/DL (8.5-10.1)
[2020-10-23 04:17] LABS: GLUCOSE 85 MG/DL (70-105)
[2020-10-23 04:18] LABS: TOTAL PROTEIN 5.2 GM/DL (6.4-8.2)
[2020-10-23 04:19] LABS: BILIRUBIN,TOTAL 0.4 MG/DL (0.1-1.0); CARBON DIOXIDE 23 MMOL/L (21-32)
[2020-10-23 04:21] LABS: ALKALINE PHOSPHATASE 181 U/L (40-136); CREATININE SERUM 0.58 MG/DL (0.60-1.30); GFR ESTIMATED > 60; PHOSPHORUS 2.4 MG/DL (2.3-4.7)
[2020-10-23 04:22] LABS: BUN/CREATININE RATIO 10
[2020-10-23 04:24] LABS: ALANINE AMINOTRANSFERASE 60 U/L (0-55)
[2020-10-23] MEDS: KCL 20 MEQ TAB (K-DUR) PO SCH (04:26)
[2020-10-23] MEDS: MAGNESIUM 1 GM/100 ML IVPB 100 ML IV SCH (04:26)
[2020-10-23] MEDS: POTASSIUM CL 10MEQ/50ML IVPB 50 ML IV SCH (04:26)
--- NOTE | 2020-10-23 04:56 | Pulmonary Progress Note ---
Subjective Time Seen by a Provider: 04:53 Subjective/Events-last exam Pt is still on Precedex. He has been requesting Ativan and asking for specific dose of Ativan. Sepsis Event Evaluation Height, Weight, BMI Height: 6'1.00" Weight: 188lbs. 0.0oz. 85.206955af; 25.96 BMI Method:Stated Exam Exam Vital Signs Date Time Temp Pulse Resp B/P (MAP) Pulse Ox O2 Delivery O2 Flow Rate FiO2 10/23/20 04:00 81 34 93/54 (67) 95 High Flow N/C 6.00 10/23/20 03:00 80 16 92/55 (67) 92 High Flow N/C 6.00 10/23/20 02:27 93 Nasal Cannula 3.00 10/23/20 02:15 78 10 102/61 (75) 95 High Flow N/C 6.00 10/23/20 02:08 High Flow N/C 6.00 10/23/20 01:00 79 29 99/60 (73) 96 High Flow N/C 8.00 10/23/20 01:00 79 10/23/20 00:26 High Flow N/C 8.00 10/23/20 00:00 80 20 95/51 (66) 92 OxyMask 8.00 10/22/20 23:12 36.6 10/22/20 23:03 81 27 96/59 (71) 93 OxyMask 8.00 10/22/20 22:00 81 21 106/64 (78) 95 OxyMask 8.00 10/22/20 21:19 93 OxyMask 8.00 10/22/20 21:00 81 32 95/52 (66) 95 OxyMask 8.00 10/22/20 20:14 82 18 100/60 (73) 93 OxyMask 8.00 10/22/20 20:00 95 OxyMask 8.00 10/22/20 19:41 OxyMask 8.00 10/22/20 19:00 37.0 10/22/20 19:00 86 38 100/62 (75) 92 OxyMask 8.00 10/22/20 19:00 86 10/22/20 18:59 37.0 10/22/20 18:20 96 OxyMask 7.00 10/22/20 18:00 86 40 105/60 (75) OxyMask 8.00 10/22/20 17:00 85 26 86/54 (65) OxyMask 8.00 10/22/20 16:14 85 26 86/54 (65) OxyMask 8.00 10/22/20 15:18 37.0 10/22/20 15:00 82 15 105/62 (76) 96 OxyMask 8.00 10/22/20 14:30 96 OxyMask 8.00 10/22/20 14:00 102/58 (73) 94 OxyMask 8.00 10/22/20 13:00 78 18 98/61 (73) 95 OxyMask 8.00 10/22/20 12:00 77 30 76/42 (53) 96 OxyMask 8.00 10/22/20 11:05 OxyMask 8.00 10/22/20 11:00 78 25 89/59 (69) 95 OxyMask 10.00 10/22/20 10:57 96 OxyMask 9.00 10/22/20 10:00 65 15 97 OxyMask 10.00 10/22/20 09:00 84 33 98/66 (77) 96 OxyMask 10.00 10/22/20 08:00 88 12 102/69 (80) 94 OxyMask 10.00 10/22/20 08:00 95 OxyMask 6.00 10/22/20 07:40 95 OxyMask 10.00 10/22/20 07:00 98 22 106/69 (81) 97 OxyMask 10.00 10/22/20 06:26 95 10/22/20 06:00 101 26 121/78 (92) 98 OxyMask 10.00 10/22/20 05:47 37.0 98 18 117/78 94 OxyMask 10.00 10/22/20 05:00 104 19 113/75 (88) 99 OxyMask 10.00 I & O 10/23/20 07:00 Intake Total 1530 ml Output Total 2700 ml Balance -1170 ml Height & Weight Height: 6'1.00" Weight: 188lbs. 0.0oz. 85.779620kw; 25.96 BMI Method:Stated General Appearance: No Apparent Distress, WD/WN HEENT: PERRL/EOMI, Normal ENT Inspection Neck: Non Tender, Supple Respiratory: Chest Non Tender, Lungs Clear Cardiovascular: Regular Rate, Rhythm, Normal Peripheral Pulses Capillary Refill: Less Than 3 Seconds Gastrointestinal: normal bowel sounds, non tender, soft; No guarding, No rebound Extremity: Normal Capillary Refill, Normal Inspection Neurologic/Psychiatric: Alert, Oriented x3, No Motor/Sensory Deficits Skin: Normal Color, Warm/Dry Results Lab Laboratory Tests 10/22/20 03:25 10/23/20 03:04 Assessment/Plan Assessment/Plan Acute on chronic respiratory failure - resolved -S/p extubation -Labs and radiology reviewed PNA with left infiltrate -Repeat Downing cultures - pending Zosyn Metabolic encephalopathy -Start Risperdol and haldol -Monitor - Continue Rifaxamine Hx of alcohol dependance -CIWA protocol -Precedex - D/C -Pt has drug seeking behavior. He is requesting Ativan by specific dose. -D/C CIWA protocol and PRecedex -Will order PRN Ativan 1mg Q 4 PRN -D/C morphine -He was admitted on 10/15 -UDS and ETOH was negative UTI -Continue Zosyn Acute renal failure Anemia -Monitor GI/DVT ppx -Lovenox and Protonix FANTA MILLER DO Oct 23, 2020 04:56
[2020-10-23] MEDS ORDERED: risperiDONE 1 MG (RisperDAL) TAB ONE (05:55)
[2020-10-23] MEDS: inSUlin ASPART (NovoLOG) 1 UNIT/0.01 ML (CHARGE PER UNIT) SQ SCH ×4 (05:56→20:47)
[2020-10-23] MEDS: risperiDONE 1 MG (RisperDAL) TAB PO SCH ×2 (05:59→20:01)
--- NOTE | 2020-10-23 06:41 | NUR ---
PT DAUGHTER BELLE UPDATED ON PT AT THIS TIME. ALL QUESTIONS AND CONCERNS ADDRESSED.
--- NOTE | 2020-10-23 08:26 | Diagnostic Imaging Report ---
INDICATION: Intubation COMPARISON: 10/22/2020 TECHNIQUE: Single radiograph of the chest dated 10/23/2020. FINDINGS: The cardiac silhouette is stable. No endotracheal tube is identified despite indication being intubation. Bilateral pulmonary infiltrates are again identified, greatest within the mid to lower lungs. These appear minimally improved since the prior examination. Tiny bibasilar pleural effusions are suspected. No pneumothorax. No acute osseous abnormality. IMPRESSION: Slightly improved bilateral pulmonary infiltrates with associated trace pleural effusions. Otherwise, similar examination. Dictated by: Dictated on workstation # [id number]
--- NOTE | 2020-10-23 08:53 | Physical Therapy Daily Note ---
PT Daily Note-Current Subjective Patient in bed pre tx, agrees to PT, has no complaints of pain. Appearance Patient in recliner post tx with nurse call, to continue with OT Mental Status Patient Orientation: Person, Place, Situation Attachments: Oxygen, Sibley Catheter Transfers SCALE: Activities may be completed with or without assistive devices. 2-Wcueuloyqs-xijpech completes the activity by him/herself with no assistance from a helper. 5-Set-up or Clean-up Assistance-helper sets up or cleans up; patient completes activity. Nursery assists only prior to or following the activity. 4-Supervision or Touching Assistance-helper provides verbal cues and/or touching/steadying and/or contact guard assistance as patient completes activity. Assistance may be provided throughout the activity or intermittently. 3-Partial/Moderate Assistance-helper does LESS THAN HALF the effort. Nursery lifts, holds or supports trunk or limbs, but provides less than half the effort. 2-Substantial/Maximal Assistance-helper does MORE THAN HALF the effort. Nursery lifts or holds trunk or limbs and provides more than half the effort. 5-Tjtstqtjk-vycegq does ALL the effort. Patient does none of the effort to complete the activity. Or, the assistance of 2 or more helpers is required for the patient to complete the activity. If activity was not attempted, code reason: 7-Patient Refused. 9-Not Applicable-not attempted and the patient did not perform the activity before the current illness, exacerbation or injury. 10-Not Attempted due to Environmental Limitations-(lack of equipment, weather restraints, etc.). 88-Not Attempted due to Medical Conditions or Safety Concerns. Roll Left & Right (QC): 3 Lying to Sitting/Side of Bed(Q: 3 Sit to Stand (QC): 3 Chair/Wsj-le-Zwlby Xfer(QC): 3 Patient supine to sit with min assist, min assist to stand and perform transfer to recliner using a rolling walker. Patient is very shaky, has to sit at the edge of the bed for several minutes, very anxious, cues for purse lip breathing, O2 goes down to 87% but comes back up to 90% with purse lip breathing, once he gets to the recliner his O2 comes up to 92% but has very shallow quick breathing, he says he breathes like that when he is anxious, cued to slow breathing and take deeper breaths, he calms back down after a minute. Gait Training Distance: 3' Gait Assistive Device: FWW min A Treatments bed mobility and transfers, Assessment Current Status: Fair Progress improved supine to sit and transfer PT Instrument Maker Goals Instrument Maker Goals PT Prison Goals Time Frame: Nov 02, 2020 Roll Left & Right (QC): 6 Sit to Lying (QC): 6 Lying-Sitting on Side/Bed(QC): 6 Sit to Stand (QC): 6 Chair/Awo-of-Zgddv Xfer(QC): 6 Toilet Transfer (QC): 6 Car Transfer (QC): 6 Does the Patient Walk: Yes Walk 10 feet (QC): 6 Walk 50ft with 2 Turns (QC): 6 Walk 150 ft (QC): 6 PT Plan Problem List Problem List: Activity Tolerance, Functional Strength, Safety, Balance, Gait, Transfer, Bed Mobility, ROM Treatment/Plan Treatment Plan: Continue Plan of Care Treatment Plan: Bed Mobility, Education, Functional Activity Danna, Functional Strength, Gait, Safety, Therapeutic Exercise, Transfers Treatment Duration: Nov 02, 2020 Frequency: 6 times per week Estimated Hrs Per Day: .25 hour per day Patient and/or Family Agrees t: Yes Safety Risks/Education Patient Education: Gait Training, Transfer Techniques, Correct Positioning, Safety Issues Teaching Recipient: Patient Teaching Methods: Demonstration, Discussion Response to Teaching: Reinforcement Needed Time/GCodes Time In: 821 Time Out: 08 Total Billed Treatment Time: 13 Total Billed Treatment 1 visit FA 13' ALEKSEYBECKYCHRISTOPHER PT Oct 23, 2020 08:53
[2020-10-23] MEDS ORDERED: SODIUM PHOSPHATE INJ 30 MM in NS (IVPB) 250 ML INJ ONE (09:00)
[2020-10-23] MEDS: PIPERACILLIN/TAZOBACTAM (BULK) 4.5 GM in NS (IVPB) 100 ML IV SCH ×3 (09:17→23:32)
[2020-10-23] MEDS: SPIRONOLACTONE 25 MG (ALDACTONE) TAB PO SCH (09:18)
[2020-10-23] MEDS: PANTOPRAZOLE 40 MG (PROTONIX) VIAL IV SCH (09:18)
[2020-10-23] MEDS: RIFAXIMIN 550 MG TABLET (XIFAXAN) PO SCH ×2 (09:18→20:01)
--- NOTE | 2020-10-23 10:05 | Occupational Ther Daily Note ---
OT Current Status-Daily Note Subjective Pt alert, oriented to person/ place. Pt does not know situation, pt is educated on situation and questioned on support pt has for alcohol dependeency later in session. Pt states has meetings/ support via phone call and in person. Pt states, "I am never drinking again." Pt denies pain. Pt's 02 unable to maintain above 90%. Slowly increased from 3 L 9upon entry) to 9 L upon exit. Nursing is notified. Pt requires constant cues for breathing through nose/ deeper breaths. Mental Status/Objective Patient Orientation: Person, Place Attachments: Sibley Catheter, Oxygen, Telemetry ADL-Treatment Therapy Code Descriptions/Definitions Functional [place] Measure: 0=Not Assessed/NA 4=Minimal Assistance 1=Total Assistance 5=Supervision or Setup 2=Maximal Assistance 6=Modified [place] 3=Moderate Assistance 7=Complete IndependenceSCALE: Activities may be completed with or without assistive devices. 3-Lqtluhbgdj-ynwxybb completes the activity by him/herself with no assistance from a helper. 5-Set-up or Clean-up Assistance-helper sets up or cleans up; patient completes activity. Homer assists only prior to or following the activity. 4-Supervision or Touching Assistance-helper provides verbal cues and/or touching/steadying and/or contact guard assistance as patient completes ac tivity. Assistance may be provided throughout the activity or intermittently. 3-Partial/Moderate Assistance-helper does LESS THAN HALF the effort. Homer lifts, holds or supports trunk or limbs, but provides less than half the effort. 2-Substantial/Maximal Assistance-helper does MORE THAN HALF the effort. Homer lifts or holds trunk or limbs and provides more than half the effort. 1-Zbsclvnku-zbygzl does ALL the effort. Patient does none of the effort to complete the activity. Or, the assistance of 2 or more helpers is required for the patient to complete the activity. If activity was not attempted, code reason: 7-Patient Refused. 9-Not Applicable-not attempted and the patient did not perform the activity before the current illness, exacerbation or injury. 10-Not Attempted due to Environmental Limitations-(lack of equipment, weather restraints, etc.). 88-Not Attempted due to Medical Conditions or Safety Concerns. Eating (QC): 4 (SUP, cues for breathing in between swallows. Continues to be in low 80's during feeding, increased 02) Bathing Location: L Arm, R Arm, L Upper Leg, R Upper Leg, Chest, Abdomen, Perineal Area Shower/Bathe Self (QC): 3 (Pt requires s/u and max A for bottom care in sit. Pt completes UB/ chest/ face, denies completing LB at this time as he is fatigued. Denies OT completing of task as well. ) Upper Body Dressing (QC): 3 (min A gown donning/ doffing due to UE decreased strength and 02 levels. ) Toileting Hygiene (QC): 2 (max A bottom care, pt completes leni care in chair. ) Other Treatment Pt bed mob (supine to sit) with mod A. Sits EOB to regain breath, short/ shallow breaths. Pt states he is nervous/ excited. Encouraged to take breaths. At this point, 3L 02 donned, pt unable to recover while sitting EOB, continues in low 80's, is brought to 4L. Unable to recover with multiple minutes, is brought to 5L. Pt complets sit to stand from lowered EOB with assist, utilization of walker to chair with PT (see notes) as OT addresses bottom care (max A). Pt sits, requires cues for breaths. Pt unable to recover, brought up to 6L, continues in 80's. Pt states still "excited" and cannot calm down. Pt's HR WFL. Pt completes sponge bath with rest breaks while seated in recliner. During this time, 02 brought up once/ twice more as 02 not recovering during movement. Pt sits in recliner, pt's food placed in front of him. Pt is educated on use of pillow to prop RUE for increased success for feeding. Pt completes 3 bites (denies shepherd as too salty). Pt requires cues for breathing, brought to 9L, pts nurse notified as still not recovering with rest breaks in recliner, though, at 9L, now in high 80's rather than low 80's. Pt's nurse comes in, all needs met, call light in reach. Pt in recliner. Education OT Patient Education: Correct positioning, Exercise program, Home exercise program, Modified ADL techniques, Progress toward Goal/Update tx plan, Purpose of tx/functional activities, Safety issues, Transfer techniques Teaching Recipient: Patient Teaching Methods: Demonstration, Discussion Response to Teaching: Verbalize Understanding, Return Demonstration, Reinforcement Needed OT Short Term Goals Short Term Goals Eatin Oral hygiene: 5 Toileting hygiene: 2 Shower/bathe self: 2 Upper body dressin Lower body dressin Putting on/taking off footwear: 3 OT Boiler/Chiller Operator Goals Usp Goals Time Frame: Oct 29, 2020 Eating (QC): 6 Oral Hygiene (QC): 6 Toileting Hygiene (QC): 4 Shower/Bathe Self (QC): 4 Upper Body Dressing (QC): 6 Lower Body Dressing (QC): 3 On/Off Footwear (QC): 4 Additional Goals: 1-Demonstrate ADL Tasks, 2-Verbalize Understanding, 3- ImproveStrength/Danna 1=Demonstrate adherence to instructed precautions during ADL tasks. 2=Patient will verbalize/demonstrate understanding of assistive devices/modifications for ADL. 3=Patient will improve strength/tolerance for activity to enable patient to perform ADL's. OT Education/Plan Problem List/Assessment Assessment: Decreased Activ Tolerance, Decreased UE Strength, Dependent Transfers, Impaired Bed Mobility, Impaired Funct Balance, Impaired I ADL's, Impaired Self-Care Skills Discharge Recommendations Plan/Recommendations: Continue POC Therapy Discharge Recommendati: Scheduled Assistance, Post Acute OT Treatment Plan/Plan of Care Treatment,Training & Education: Yes Patient would benefit from OT for education, treatment and training to promote independence in ADL's, mobility, safety and/or upper extremity function for ADL's. Plan of Care: ADL Retraining, Caregiver Training, Functional Mobility, UE Funct Exercise/Act, UE Neuromus Re-Ed/Coord Treatment Duration: Oct 29, 2020 Frequency: 5 times per week Estimated Hrs Per Day: .25 hour per day Agreement: Yes Rehab Potential: Fair Time/GCodes Start Time: 08:22 Stop Time: 08:50 Total Time Billed (hr/min): 28 Billed Treatment Time 1, ADL 2 (28) KARTHIK SANDOVAL OTR Oct 23, 2020 10:05
--- NOTE | 2020-10-23 12:00 | Progress Note - Hospitalist ---
Subjective HPI/CC On Admission Date Seen by Provider: Oct 23, 2020 Time Seen by Provider: 10:00 Subjective/Events-last exam Pt doing pretty well More polite and respectful today Able to swallow a little bit Continues on one-on-one Review of Systems General: Fatigue, Malaise Objective Exam Vital Signs Vital Signs Date Time Temp Pulse Resp B/P (MAP) Pulse Ox O2 Delivery O2 Flow Rate FiO2 10/24/20 04:00 98 20 118/72 (87) 96 High Flow N/C 3.00 10/24/20 03:15 37.3 10/21/20 08:00 40 Capillary Refill : Less Than 3 Seconds General Appearance: No Apparent Distress, WD/WN, Chronically ill Respiratory: Lungs Clear Cardiovascular: Regular Rate, Rhythm Neurologic/Psychiatric: Alert, Oriented x3, No Motor/Sensory Deficits, Normal Mood/Affect Results/Procedures Lab Laboratory Tests 10/24/20 03:00 Patient resulted labs reviewed. Assessment/Plan Assessment and Plan Assess & Plan/Chief Complaint 10/22/20: PT OT Monitor closely DC catheter soon Monitor closely Supportive care ESTIVEN AQUINO DO Oct 23, 2020 12:00
--- NOTE | 2020-10-23 17:12 | NUR ---
CM/SS: Visited with pt as to paperwork his trust and estates attorney had drawn up related to [employer] for healthcare. Yarn Dyer had spoke with pt via phone earlier and this worker was sent the documents via email to be signed and notarized. Pt is alert and orientated today and verbalizes understanding what he is signing at this time. Documents are explained - he voices he knows as he was told by his trust and estates attorney earlier via phone and pt is able to sign the documents. Documents are notarized. Copy placed in pt's chart and copies given to ICU community service technician for medical records and for pt when he discharges. Copy also emailed to sakshi Edmonds. Talked with pt as to his discharge plan, related to drug and alcohol treatment or returning home. Pt wants to return home. Pt is open to talking with this worker more on tomorrow. Pt does indicate that he has insurance and he has card. This worker also reached out to sakshi Figueroa to see if she has a card as well. She will let this worker know. This worker will follow up.
--- NOTE | 2020-10-23 17:42 | NUR ---
CM/SS: Telephone Call from Daughter Carolina - she wants to ensure that pt will have some follow up related to his alcohol use and his mental health. Discussed process with having pt evaluated for services. This worker will follow up with pt as to his thoughts related to treatment and mental health follow up. All family would like pt to participate in in or outpatient services to address his alcohol use and mental health. This worker will follow up.
[2020-10-24] VITALS (13 sets, daily range): BP systolic 89–124; BP diastolic 52–88
[2020-10-24] MEDS: LORazepam INJ 2 MG/ML (ATIVAN) VIAL IV PRN (00:13)
[2020-10-24] MEDS: RT-ALBUTEROL/IPRATROPIUM 3 ML (DUONEB) VIAL INH SCH ×4 (02:56→19:08)
[2020-10-24] MEDS: ENOXAPARIN 40 MG/0.4 ML (LOVENOX) SYR SC SCH (03:16)
[2020-10-24 03:39] LABS: BASOPHILS # (AUTO) 0.1 10^3/uL (0.0-0.1); BASOPHILS % (AUTO) 1 % (0-10); EOSINOPHILS # (AUTO) 0.2 10^3/uL (0.0-0.3); EOSINOPHILS % (AUTO) 1 % (0-10); HEMATOCRIT 27 % (40-54); HEMOGLOBIN 8.8 g/dL (13.3-17.7); LYMPHOCYTES # (AUTO) 1.8 10^3/uL (1.0-4.0); LYMPHOCYTES % (AUTO) 15 % (12-44); MEAN CORPUSCULAR HEMOGLOBIN 28 pg (25-34); MEAN CORPUSCULAR HGB CONC 32 g/dL (32-36); MEAN CORPUSCULAR VOLUME 86 fL (80-99); MEAN PLATELET VOLUME 9.3 fL (9.0-12.2); MONOCYTES # (AUTO) 0.6 10^3/uL (0.0-1.0); MONOCYTES % (AUTO) 5 % (0-12); NEUTROPHILS # (AUTO) 8.8 10^3/uL (1.8-7.8); NEUTROPHILS % (AUTO) 74 % (42-75); PLATELET COUNT 423 10^3/uL (130-400); WHITE BLOOD COUNT 11.9 10^3/uL (4.3-11.0)
[2020-10-24 04:04] LABS: ALANINE AMINOTRANSFERASE 57 U/L (0-55); ALBUMIN 2.2 GM/DL (3.2-4.5); ALKALINE PHOSPHATASE 177 U/L (40-136); BILIRUBIN,TOTAL 0.5 MG/DL (0.1-1.0); BUN/CREATININE RATIO 11; CALCIUM 7.6 MG/DL (8.5-10.1); CARBON DIOXIDE 19 MMOL/L (21-32); CHLORIDE 105 MMOL/L (98-107); CREATININE SERUM 0.65 MG/DL (0.60-1.30); GFR ESTIMATED > 60; GLUCOSE 85 MG/DL (70-105); MAGNESIUM 1.9 MG/DL (1.6-2.4); PHOSPHORUS 2.9 MG/DL (2.3-4.7); POTASSIUM 3.8 MMOL/L (3.6-5.0); SODIUM 135 MMOL/L (135-145); TOTAL PROTEIN 5.6 GM/DL (6.4-8.2)
--- NOTE | 2020-10-24 04:08 | Pulmonary Progress Note ---
Subjective Time Seen by a Provider: 04:02 Subjective/Events-last exam No complications noted. Sepsis Event Evaluation Height, Weight, BMI Height: 6'1.00" Weight: 188lbs. 0.0oz. 85.832682fp; 25.96 BMI Method:Stated Exam Exam Vital Signs Date Time Temp Pulse Resp B/P (MAP) Pulse Ox O2 Delivery O2 Flow Rate FiO2 10/24/20 03:15 37.3 High Flow N/C 3.00 10/24/20 02:56 95 Nasal Cannula 3.00 10/24/20 01:00 102 10/23/20 23:30 37.6 90 High Flow N/C 3.00 10/23/20 23:00 94 26 116/64 (81) 93 High Flow N/C 2.00 10/23/20 22:00 96 24 111/59 (76) 93 High Flow N/C 2.00 10/23/20 21:00 94 21 116/60 (78) 99 High Flow N/C 2.00 10/23/20 20:00 97 High Flow N/C 2.00 10/23/20 20:00 98 22 113/62 (79) 97 High Flow N/C 2.00 10/23/20 19:25 97 Nasal Cannula 3.00 10/23/20 19:00 37.9 High Flow N/C 2.00 10/23/20 19:00 100 10/23/20 19:00 98 26 113/83 (93) 97 High Flow N/C 2.00 10/23/20 18:00 97 21 113/70 (84) 97 High Flow N/C 6.00 10/23/20 17:00 99 33 106/64 (78) 93 High Flow N/C 6.00 10/23/20 16:00 97 18 104/62 (76) 98 High Flow N/C 6.00 10/23/20 15:13 37.8 10/23/20 15:00 98 22 100/69 (79) 97 High Flow N/C 6.00 10/23/20 14:46 97 Nasal Cannula 3.00 10/23/20 14:00 104 29 100/56 (71) 95 High Flow N/C 6.00 10/23/20 13:00 105 24 95/53 (67) 96 High Flow N/C 6.00 10/23/20 12:29 103 10/23/20 12:00 101 17 113/69 (84) 94 High Flow N/C 6.00 10/23/20 11:01 37.2 10/23/20 11:00 102 105/88 (94) 94 High Flow N/C 6.00 10/23/20 10:15 High Flow N/C 6.00 10/23/20 10:00 98 31 111/71 (84) 100 High Flow N/C 10.00 10/23/20 09:25 High Flow N/C 10.00 10/23/20 09:00 16 105/70 (82) 87 High Flow N/C 15.00 10/23/20 08:00 110/68 (82) 92 High Flow N/C 6.00 10/23/20 08:00 95 High Flow N/C 6.00 10/23/20 07:27 92 Nasal Cannula 3.00 10/23/20 07:00 103/65 (78) 93 High Flow N/C 6.00 10/23/20 06:00 79 26 103/70 (81) 95 High Flow N/C 6.00 10/23/20 05:54 36.6 78 94 10/23/20 05:00 78 18 100/68 (79) 94 High Flow N/C 6.00 I & O 10/24/20 07:00 Intake Total 1240 ml Output Total 5075 ml Balance -3835 ml Height & Weight Height: 6'1.00" Weight: 188lbs. 0.0oz. 85.642191jc; 25.96 BMI Method:Stated General Appearance: No Apparent Distress, WD/WN HEENT: PERRL/EOMI, Normal ENT Inspection Neck: Non Tender, Supple Respiratory: Chest Non Tender, Lungs Clear Cardiovascular: Regular Rate, Rhythm, Normal Peripheral Pulses Capillary Refill: Less Than 3 Seconds Gastrointestinal: normal bowel sounds, non tender, soft; No guarding, No rebound Extremity: Normal Capillary Refill, Normal Inspection Neurologic/Psychiatric: Alert, Oriented x3, No Motor/Sensory Deficits Skin: Normal Color, Warm/Dry Results Lab Laboratory Tests 10/23/20 03:04 10/24/20 03:00 Assessment/Plan Assessment/Plan Acute on chronic respiratory failure - resolved -S/p extubation PNA with left infiltrate -Repeat Downing cultures - pending Zosyn Pulmonary edema probably secondary to IVF -Lasix Metabolic encephalopathy -Risperdol and haldol -Monitor - Continue Rifaxamine Hx of alcohol dependance -CIWA protocol -Precedex - D/C -Pt has drug seeking behavior. He is requesting Ativan by specific dose. -D/C CIWA protocol and PRecedex -Will order PRN Ativan 1mg Q 4 PRN -D/C morphine -He was admitted on 10/15 -UDS and ETOH was negative UTI -Continue Zosyn Acute renal failure Anemia -Monitor GI/DVT ppx -Lovenox and Protonix FANTA MILLER DO Oct 24, 2020 04:08
[2020-10-24] MEDS ORDERED: FUROSEMIDE 40 MG/4 ML INJ (LASIX) IVP ONE (04:15)
[2020-10-24] MEDS ORDERED: POTASSIUM CL 10MEQ/50ML IVPB 50 ML IV SCH (04:15)
[2020-10-24] MEDS: inSUlin ASPART (NovoLOG) 1 UNIT/0.01 ML (CHARGE PER UNIT) SQ SCH ×3 (04:22→15:16)
[2020-10-24] MEDS ORDERED: LORazepam 1 MG (ATIVAN) TAB ONE (04:24)
[2020-10-24] MEDS ORDERED: KCL 20 MEQ TAB (K-DUR) PO ONE ×2 (04:25→08:00)
[2020-10-24] MEDS: LORazepam 1 MG (ATIVAN) TAB PO PRN ×4 (04:34→19:36)
--- NOTE | 2020-10-24 07:01 | Diagnostic Imaging Report ---
INDICATION: Ventilator support. Time of exam 1:56 AM Correlation is made with prior chest 1 day earlier. Heart size is stable. There is central congestion. Bilateral perihilar and bibasilar infiltrates persist. No significant effusion is seen. There is no pneumothorax. IMPRESSION: No change in bilateral infiltrates since examination one day earlier. Dictated by: Dictated on workstation # [id number]
[2020-10-24] MEDS: PANTOPRAZOLE 40 MG (PROTONIX) VIAL IV SCH (09:04)
[2020-10-24] MEDS: PIPERACILLIN/TAZOBACTAM (BULK) 4.5 GM in NS (IVPB) 100 ML IV SCH ×2 (09:04→15:04)
[2020-10-24] MEDS: SPIRONOLACTONE 25 MG (ALDACTONE) TAB PO SCH (09:05)
[2020-10-24] MEDS: RIFAXIMIN 550 MG TABLET (XIFAXAN) PO SCH ×2 (09:05→19:36)
[2020-10-24] MEDS: risperiDONE 1 MG (RisperDAL) TAB PO SCH ×2 (09:05→19:36)
--- NOTE | 2020-10-24 12:00 | Physical Therapy Progress Note ---
Therapy Progress Note Patient on hold per RN due to increase O2 demand, agitation and anxiety. Will attempt in a.m. NANCY ALLEN PT Oct 24, 2020 12:00
--- NOTE | 2020-10-24 12:01 | Progress Note - Hospitalist ---
Subjective HPI/CC On Admission Date Seen by Provider: Oct 24, 2020 Time Seen by Provider: 11:30 Subjective/Events-last exam PT and OT will be started Anxiety is a major issue Overall severe alcoholism is noted Review of Systems General: Fatigue, Malaise Objective Exam Vital Signs Vital Signs Date Time Temp Pulse Resp B/P (MAP) Pulse Ox O2 Delivery O2 Flow Rate FiO2 10/25/20 04:00 94 20 101/64 (76) 94 High Flow N/C 4.00 10/24/20 23:59 37.3 10/21/20 08:00 40 Capillary Refill : Less Than 3 Seconds General Appearance: No Apparent Distress, WD/WN, Anxious, Chronically ill Respiratory: Lungs Clear Cardiovascular: Regular Rate, Rhythm Neurologic/Psychiatric: Alert Results/Procedures Lab Laboratory Tests 10/25/20 03:37 Patient resulted labs reviewed. Assessment/Plan Assessment and Plan Assess & Plan/Chief Complaint 10/22/20: PT OT Monitor closely DC catheter soon Monitor closely Supportive care 10/24/20: Monitor closely Severe alcoholism ESTIVEN AQUINO DO Oct 24, 2020 12:01
[2020-10-24] MEDS: HALOPERIDOL 5 MG/ML (HALDOL) VIAL IM PRN ×2 (12:07→19:37)
--- NOTE | 2020-10-24 14:41 | Occupational Ther Daily Note ---
OT Current Status-Daily Note Subjective Pt. does not report pain, but does report SOA. Please see note below. ADL-Treatment Therapy Code Descriptions/Definitions Functional [place] Measure: 0=Not Assessed/NA 4=Minimal Assistance 1=Total Assistance 5=Supervision or Setup 2=Maximal Assistance 6=Modified [place] 3=Moderate Assistance 7=Complete IndependenceSCALE: Activities may be completed with or without assistive devices. 0-Fbdnziqikj-tqhqdhm completes the activity by him/herself with no assistance from a helper. 5-Set-up or Clean-up Assistance-helper sets up or cleans up; patient completes activity. [place] assists only prior to or following the activity. 4-Supervision or Touching Assistance-helper provides verbal cues and/or touching/steadying and/or contact guard assistance as patient completes activity. Assistance may be provided throughout the activity or intermittently. 3-Partial/Moderate Assistance-helper does LESS THAN HALF the effort. [place] lifts, holds or supports trunk or limbs, but provides less than half the effort. 2-Substantial/Maximal Assistance-helper does MORE THAN HALF the effort. [place] lifts or holds trunk or limbs and provides more than half the effort. 7-Zifnoffox-jdiqsh does ALL the effort. Patient does none of the effort to complete the activity. Or, the assistance of 2 or more helpers is required for the patient to complete the activity. If activity was not attempted, code reason: 7-Patient Refused. 9-Not Applicable-not attempted and the patient did not perform the activity before the current illness, exacerbation or injury. 10-Not Attempted due to Environmental Limitations-(lack of equipment, weather restraints, etc.). 88-Not Attempted due to Medical Conditions or Safety Concerns. Oral Hygiene (QC): 3 (Min assist sitting on side of bed.) Other Treatment Nursing okay for OT to work with nursing. Pt. transferred supine-sit with min assist. He requests to brush teeth, and so OT has this set up for him. Pt. brushes teeth, but requires rest breaks, and cues, and then assist for balance sitting. OT monitors BP and oxygen. Pt. on 4L 02, but sats drop to 83%. BP at 105/62. Nursing is called to come in and assess, as pt. is coughing and sats are only rising to 86%. Pt. is encouraged to breathe deeply in through nose and out through mouth. Pt. transfers back to bed with mod assistance. Nursing comes in and pt. is transferred in bed for mobility with assist x 2. Nursing calls RT to assess pt. All needs are met before leaving room. Pt. reports he is comfortable in bed. 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 2=Patient will verbalize/demonstrate understanding of assistive walter maribell/modifications for ADL. 3=Patient will improve strength/tolerance for activity to enable patient to perform ADL's. OT Education/Plan Problem List/Assessment Assessment: Decreased Activ Tolerance, Dependent Transfers, Impaired I ADL's, Impaired Self-Care Skills Discharge Recommendations Plan/Recommendations: Continue POC Therapy Discharge Recommendati: 24 Hour Supervision Treatment Plan/Plan of Care Treatment,Training & Education: Yes Patient would benefit from OT for education, treatment and training to promote independence in ADL's, mobility, safety and/or upper extremity function for ADL's. Plan of Care: ADL Retraining, Caregiver Training, Functional Mobility, UE Funct Exercise/Act, UE Neuromus Re-Ed/Coord Treatment Duration: Oct 29, 2020 Frequency: 5 times per week Estimated Hrs Per Day: .25 hour per day Agreement: Yes Rehab Potential: Fair Time/GCodes Start Time: 10:05 Stop Time: 10:30 Total Time Billed (hr/min): 25 Billed Treatment Time 1, ADL x 10minutes, FA x 15minutes RAUDEL WAGNER OT Oct 24, 2020 14:41
--- NOTE | 2020-10-24 15:54 | NUR ---
"RD ASSESSMENT PMHx: hepatic encephalopathy; liver disease; ETOHism; PT INTERACTION: Note d/t to pt's recent issues with confusion, all diet information for nutrition assessment for LOS is per Lino RN or per chart review. Lino states current appetite appears good. Note avg PO intake 28% x3d, per chart review. Lino states some issues with diarrhea. Note last BM was 10/24, and pt currently on bowel regimen of senna PRN, per chart review. Note recent 21# wt gain x3mon, per chart review. Est. kcal needs: 0588-1089 kcal | 20-25 kcal/kg Est. Pro needs: 92-110 g Pro | 1.0-1.2 g Pro/kg PES STATEMENT: Inadequate oral intake (NI-2.1) related to loss of appetite, and diarrhea, as evidenced by chart review, and avg PO intake 28% x3d. INTERVENTION: Continue with current diet order of Regular diet. Add Ensure Enlive to meals TID, for increased kcal intake. Provides 350 kcal and 20 g Pro per serving. Will continue to follow and reassess as pt needs, intake, and status change. S ISABELA IBARRA, MS RD LD [phone] cell"
[2020-10-25] VITALS (8 sets, daily range): BP systolic 101–112; BP diastolic 56–78
[2020-10-25] MEDS: RT-ALBUTEROL/IPRATROPIUM 3 ML (DUONEB) VIAL INH SCH ×4 (02:09→18:36)
[2020-10-25 03:56] LABS: BASOPHILS # (AUTO) 0.1 10^3/uL (0.0-0.1); BASOPHILS % (AUTO) 1 % (0-10); EOSINOPHILS # (AUTO) 0.3 10^3/uL (0.0-0.3); EOSINOPHILS % (AUTO) 2 % (0-10); HEMATOCRIT 27 % (40-54); HEMOGLOBIN 8.8 g/dL (13.3-17.7); LYMPHOCYTES # (AUTO) 1.9 10^3/uL (1.0-4.0); LYMPHOCYTES % (AUTO) 15 % (12-44); MEAN CORPUSCULAR HEMOGLOBIN 28 pg (25-34); MEAN CORPUSCULAR HGB CONC 33 g/dL (32-36); MEAN CORPUSCULAR VOLUME 87 fL (80-99); MEAN PLATELET VOLUME 9.2 fL (9.0-12.2); MONOCYTES # (AUTO) 0.8 10^3/uL (0.0-1.0); MONOCYTES % (AUTO) 6 % (0-12); NEUTROPHILS # (AUTO) 10.1 10^3/uL (1.8-7.8); NEUTROPHILS % (AUTO) 75 % (42-75); PLATELET COUNT 485 10^3/uL (130-400); WHITE BLOOD COUNT 13.4 10^3/uL (4.3-11.0)
[2020-10-25] MEDS: ENOXAPARIN 40 MG/0.4 ML (LOVENOX) SYR SC SCH (04:17)
[2020-10-25] MEDS: LORazepam 1 MG (ATIVAN) TAB PO PRN ×3 (04:17→12:02)
[2020-10-25 04:36] LABS: ALBUMIN 2.4 GM/DL (3.2-4.5); CHLORIDE 101 MMOL/L (98-107); POTASSIUM 4.3 MMOL/L (3.6-5.0); SODIUM 131 MMOL/L (135-145)
[2020-10-25 04:39] LABS: GLUCOSE 94 MG/DL (70-105)
[2020-10-25 04:40] LABS: BILIRUBIN,TOTAL 0.5 MG/DL (0.1-1.0); CARBON DIOXIDE 20 MMOL/L (21-32)
[2020-10-25 04:42] LABS: ALKALINE PHOSPHATASE 171 U/L (40-136); CREATININE SERUM 0.68 MG/DL (0.60-1.30); GFR ESTIMATED > 60; PHOSPHORUS 2.9 MG/DL (2.3-4.7)
[2020-10-25 04:43] LABS: BUN/CREATININE RATIO 12
[2020-10-25 04:45] LABS: ALANINE AMINOTRANSFERASE 55 U/L (0-55); MAGNESIUM 1.9 MG/DL (1.6-2.4)
--- NOTE | 2020-10-25 04:49 | Pulmonary Progress Note ---
Subjective Time Seen by a Provider: 04:43 Subjective/Events-last exam Pt is doing better. He is asking for Ativan Q 4 Sepsis Event Evaluation Height, Weight, BMI Height: 6'1.00" Weight: 188lbs. 0.0oz. 85.212132qj; 25.96 BMI Method:Stated Exam Exam Vital Signs Date Time Temp Pulse Resp B/P (MAP) Pulse Ox O2 Delivery O2 Flow Rate FiO2 10/25/20 04:00 94 20 101/64 (76) 94 High Flow N/C 4.00 10/25/20 02:09 93 Nasal Cannula 3.00 10/25/20 01:00 100 10/25/20 00:00 106 29 111/75 (87) 93 High Flow N/C 4.00 10/24/20 23:59 37.3 High Flow N/C 4.00 10/24/20 20:00 97 High Flow N/C 3.00 10/24/20 20:00 92 19 105/55 (72) 93 High Flow N/C 3.00 10/24/20 19:35 36.8 10/24/20 19:08 94 Nasal Cannula 3.00 10/24/20 19:00 94 10/24/20 16:22 36.7 10/24/20 16:00 102 41 95/57 (70) 96 High Flow N/C 3.00 10/24/20 14:35 91 Nasal Cannula 3.00 10/24/20 12:37 101 10/24/20 12:00 105 36 114/78 (90) 100 High Flow N/C 3.00 10/24/20 12:00 36.4 10/24/20 09:24 92 Nasal Cannula 3.00 10/24/20 09:00 97 22 89/52 (64) 95 High Flow N/C 3.00 10/24/20 08:00 107 24 96/62 (73) 96 High Flow N/C 3.00 10/24/20 08:00 37.6 10/24/20 08:00 96 High Flow N/C 3.00 10/24/20 07:00 105 46 93/59 (70) 95 High Flow N/C 3.00 10/24/20 06:37 107 10/24/20 06:00 108 23 97/63 (74) 98 High Flow N/C 3.00 10/24/20 05:00 105 27 118/88 (65) 95 High Flow N/C 3.00 I & O 10/25/20 07:00 Intake Total 1875 ml Output Total 2700 ml Balance -825 ml Height & Weight Height: 6'1.00" Weight: 188lbs. 0.0oz. 85.474166og; 25.96 BMI Method:Stated General Appearance: No Apparent Distress, WD/WN, Chronically ill HEENT: PERRL/EOMI, Normal ENT Inspection Neck: Non Tender, Supple Respiratory: Lungs Clear Cardiovascular: Regular Rate, Rhythm Capillary Refill: Less Than 3 Seconds Gastrointestinal: normal bowel sounds, non tender, soft; No guarding, No errol ound Extremity: Normal Capillary Refill, Normal Inspection Neurologic/Psychiatric: Alert, Oriented x3, No Motor/Sensory Deficits, Normal Mood/Affect Skin: Normal Color, Warm/Dry Results Lab Laboratory Tests 10/24/20 03:00 10/25/20 03:37 Assessment/Plan Assessment/Plan Acute on chronic respiratory failure - resolved -S/p extubation -Pt will probably need oxygen upon discharge PNA with left infiltrate -Repeat Downing cultures - negative thus far Zosyn Pulmonary edema probably secondary to IVF -Repeat a BNP -IVF are SL Metabolic encephalopathy - much improved -Risperdol and haldol -Monitor - Continue Rifaxamine Hx of alcohol dependance -CIWA protocol -Precedex - D/C -Pt has drug seeking behavior. He is requesting Ativan by specific dose. -D/C CIWA protocol and PRecedex - PRN Ativan 1mg Q 4 PRN -Pt is asking for Ativan every 4hours. Will change to Q 6 -D/C morphine -He was admitted on 10/15 -UDS and ETOH was negative UTI -Continue Zosyn Acute renal failure Anemia -Monitor GI/DVT ppx -Lovenox and Protonix FANTA MILLER DO Oct 25, 2020 04:49
--- NOTE | 2020-10-25 08:41 | NUR ---
REC'D PER BED FROM ICU. SEE ASSESSMEMT.
--- NOTE | 2020-10-25 08:52 | NUR ---
0700-RECEIVED REPORT FROM TROY YEPEZ 0750-REPORT CALLED TO TROY WILLETT 0888-PT TRANSFERRED VIA BED BY THIS RN AND TROY DE LA GARZA TO 419 WITH PT BELONGINGS. PT TOLERATED WELL. 0840-PAUL CALLED AND GAVE PASSWORD. UPDATES GIVEN AND TRANSFERRED ROOM NUMBER PROVIDED. ALL QUESTIONS ANSWERED.
[2020-10-25] MEDS: PANTOPRAZOLE 40 MG (PROTONIX) VIAL IV SCH (08:59)
[2020-10-25] MEDS: PIPERACILLIN/TAZOBACTAM (BULK) 4.5 GM in NS (IVPB) 100 ML IV SCH ×4 (09:00→16:59)
[2020-10-25] MEDS: SPIRONOLACTONE 25 MG (ALDACTONE) TAB PO SCH (09:02)
[2020-10-25] MEDS: RIFAXIMIN 550 MG TABLET (XIFAXAN) PO SCH ×2 (09:02→20:31)
[2020-10-25] MEDS: risperiDONE 1 MG (RisperDAL) TAB PO SCH ×2 (09:04→20:31)
--- NOTE | 2020-10-25 11:30 | Physical Therapy Daily Note ---
PT Daily Note-Current Subjective Patient is in bed and agrees to PT. Currently on HF O2 NC 5-6L. Mental Status Patient Orientation: Normal For Age Attachments: Oxygen, Sibley Catheter, IV Transfers SCALE: Activities may be completed with or without assistive devices. 4-Cxpgckycut-navcokq completes the activity by him/herself with no assistance from a helper. 5-Set-up or Clean-up Assistance-helper sets up or cleans up; patient completes activity. [place] assists only prior to or following the activity. 4-Supervision or Touching Assistance-helper provides verbal cues and/or touching/steadying and/or contact guard assistance as patient completes activity. Assistance may be provided throughout the activity or intermittently. 3-Partial/Moderate Assistance-helper does LESS THAN HALF the effort. [place] lifts, holds or supports trunk or limbs, but provides less than half the effort. 2-Substantial/Maximal Assistance-helper does MORE THAN HALF the effort. [place] lifts or holds trunk or limbs and provides more than half the effort. 0-Hataujhzl-oghrmw does ALL the effort. Patient does none of the effort to complete the activity. Or, the assistance of 2 or more helpers is required for the patient to complete the activity. If activity was not attempted, code reason: 7-Patient Refused. 9-Not Applicable-not attempted and the patient did not perform the activity before the current illness, exacerbation or injury. 10-Not Attempted due to Environmental Limitations-(lack of equipment, weather restraints, etc.). 88-Not Attempted due to Medical Conditions or Safety Concerns. Lying to Sitting/Side of Bed(Q: 2 Sit to Stand (QC): 3 Chair/Yqr-ni-Qwuas Xfer(QC): 3 Gait Training Does the Patient Walk?: No and Walking Goal IS indicated Distance: 10' Walk 10 feet (QC): 3 Gait Assistive Device: FWW shuffle gait sequence Exercises Supine Ex: Ankle pumps, Quad Set, Heel Slides, Hip abd/add Supine Reps: 12 Seated Therapy Exercises: Ankle pumps, Long arc quads, Hip flexion Seated Reps: 15 Assessment Patient requires time to complete functional tasks. Patient also responds to calm approach to perform activity. Patient is able to self calm/deep breathe when SOA with VC's. PT to increase activity as tolerate by patient. 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 Goals PT Residential Goals Time Frame: Nov 02, 2020 Roll Left & Right (QC): 6 Sit to Lying (QC): 6 Lying-Sitting on Side/Bed(QC): 6 Sit to Stand (QC): 6 Chair/Dsc-jj-Gqfhe Xfer(QC): 6 Toilet Transfer (QC): 6 Car Transfer (QC): 6 Does the Patient Walk: Yes Walk 10 feet (QC): 6 Walk 50ft with 2 Turns (QC): 6 Walk 150 ft (QC): 6 PT Plan Treatment/Plan Treatment Plan: Continue Plan of Care Treatment Plan: Bed Mobility, Education, Functional Activity Danna, Functional Strength, Gait, Safety, Therapeutic Exercise, Transfers Treatment Duration: Nov 02, 2020 Frequency: 6 times per week Estimated Hrs Per Day: .25 hour per day Patient and/or Family Agrees t: Yes Time/GCodes Time In: 1057 Time Out: 1120 Total Billed Treatment Time: 23 Total Billed Treatment 1 visit EX 12 min FA 11min NANCY ALLEN PT Oct 25, 2020 11:29
--- NOTE | 2020-10-25 11:54 | Occupational Ther Daily Note ---
OT Current Status-Daily Note Subjective Pt transferred to 4th floor from 5th. Pt denies pain, states an increase in strength. However, pt denies OOB even with encouragement. Pt agrees to ther ex while in bed. 02 monitored throughout, pt on 4L and maintains >90% 02. Mental Status/Objective Patient Orientation: Person, Place, Situation Attachments: Sibley Catheter, Oxygen ADL-Treatment Therapy Code Descriptions/Definitions Functional [place] Measure: 0=Not Assessed/NA 4=Minimal Assistance 1=Total Assistance 5=Supervision or Setup 2=Maximal Assistance 6=Modified [place] 3=Moderate Assistance 7=Complete IndependenceSCALE: Activities may be completed with or without assistive devices. 7-Xrbjuamzfp-xzsohgw completes the activity by him/herself with no assistance from a helper. 5-Set-up or Clean-up Assistance-helper sets up or cleans up; patient completes activity. [place] assists only prior to or following the activity. 4-Supervision or Touching Assistance-helper provides verbal cues and/or touching/steadying and/or contact guard assistance as patient completes activity. Assistance may be provided throughout the activity or intermittently. 3-Partial/Moderate Assistance-helper does LESS THAN HALF the effort. [place] lifts, holds or supports trunk or limbs, but provides less than half the effort. 2-Substantial/Maximal Assistance-helper does MORE THAN HALF the effort. [place] lifts or holds trunk or limbs and provides more than half the effort. 9-Enwshzhsg-lwmezw does ALL the effort. Patient does none of the effort to complete the activity. Or, the assistance of 2 or more helpers is required for the patient to complete the activity. If activity was not attempted, code reason: 7-Patient Refused. 9-Not Applicable-not attempted and the patient did not perform the activity before the current illness, exacerbation or injury. 10-Not Attempted due to Environmental Limitations-(lack of equipment, weather restraints, etc.). 88-Not Attempted due to Medical Conditions or Safety Concerns. Eating (QC): 6 Shower/Bathe Self (QC): 7 Upper Body Dressing (QC): 7 Lower Body Dressing (QC): 7 Toileting Hygiene (QC): 7 Toilet Transfer (QC): 7 Other Treatment Denies ADLs/ OOB activities. UE HEP and theraband given to pt. Pt completes 5-7 reps bilaterally of 5/5 exercises with minimal cues for correct positioning. Pt completes with 02 monitored, >90% throughout. Pt coughs intermittently.. States fatigue. Pt is educated on rehab process, pt expresses interest. Pt is encouraged to rest when fatigued/ complete 5-7 reps then increase over weekend to 10 reps, completing 3x daily. Pt agrees. Pt left in bed with all needs met, call light in reach. Education OT Patient Education: Correct positioning, Exercise program, Home exercise program, Progress toward Goal/Update tx plan, Purpose of tx/functional activities, Rehab process, Safety issues Teaching Recipient: Patient Teaching Methods: Demonstration, Handout, Discussion Response to Teaching: Verbalize Understanding, Return Demonstration, Reinforcement Needed OT Short Term Goals Short Term Goals Eatin Oral hygiene: 5 Toileting hygiene: 2 Shower/bathe self: 2 Upper body dressin Lower body dressin Putting on/taking off footwear: 3 OT Bed Teacher Goals [facility] Goals Time Frame: Oct 29, 2020 Eating (QC): 6 Oral Hygiene (QC): 6 Toileting Hygiene (QC): 4 Shower/Bathe Self (QC): 4 Upper Body Dressing (QC): 6 Lower Body Dressing (QC): 3 On/Off Footwear (QC): 4 Additional Goals: 1-Demonstrate ADL Tasks, 2-Verbalize Understanding, 3- ImproveStrength/Danna 1=Demonstrate adherence to instructed precautions during ADL tasks. 2=Patient will verbalize/demonstrate understanding of assistive devices/modifications for ADL. 3=Patient will improve strength/tolerance for activity to enable patient to perform ADL's. OT Education/Plan Problem List/Assessment Assessment: Decreased Activ Tolerance, Decreased UE Strength, Dependent Transfers, Impaired Bed Mobility, Impaired Funct Balance, Impaired I ADL's, Impaired Self-Care Skills Discharge Recommendations Plan/Recommendations: Continue POC Therapy Discharge Recommendati: Post Acute OT Treatment Plan/Plan of Care Treatment,Training & Education: Yes Patient would benefit from OT for education, treatment and training to promote independence in ADL's, mobility, safety and/or upper extremity function for ADL's. Plan of Care: ADL Retraining, Caregiver Training, Functional Mobility, UE Funct Exercise/Act, UE Neuromus Re-Ed/Coord Treatment Duration: Oct 29, 2020 Frequency: 5 times per week Estimated Hrs Per Day: .25 hour per day Agreement: Yes Rehab Potential: Fair Time/GCodes Start Time: 10:00 Stop Time: 10:15 Total Time Billed (hr/min): 15 Billed Treatment Time 1, EX (15) KARTHIK SANDOVAL OTR Oct 25, 2020 11:54
--- NOTE | 2020-10-25 12:00 | NUR ---
CM/SS: Visited with pt as to his current status and plan for discharge Plan: Pt is from home and will likely return there with some outpatient drug and alcohol services. Summary: Pt is getting settled in the bed at the time of the visit. Pt has just moved to 4th floor. Pt reports that he is feeling better and that is hopes he can go home in a few days. Pt is open at this time to outpatient services related to alcohol treatment near [place]. He reports having insurance and the name is [facility]. Pt does not have a copy of his card with him at his time. He is ok for this worker to call his daughters and let them know he is ok at this time.
--- NOTE | 2020-10-25 12:06 | Progress Note - Hospitalist ---
Subjective HPI/CC On Admission Date Seen by Provider: Oct 25, 2020 Time Seen by Provider: 11:00 Subjective/Events-last exam Complaining of neck pain Trying to dictate how much Valium he will get and frequency Severe alcoholism States if he can "get the right amount of medicine for my anxiety I can stop drinking" Labs reviewed Review of Systems General: Fatigue, Malaise Pulmonary: Dyspnea Objective Exam Vital Signs Vital Signs Date Time Temp Pulse Resp B/P (MAP) Pulse Ox O2 Delivery O2 Flow Rate FiO2 10/26/20 03:27 36.5 101 21 99/60 (73) 94 High Flow N/C 7.00 10/21/20 08:00 40 Capillary Refill : Less Than 3 SecondsLess Than 3 Seconds General Appearance: No Apparent Distress, WD/WN, Anxious, Chronically ill Respiratory: No Accessory Muscle Use, No Respiratory Distress, Decreased Breath Sounds Cardiovascular: Regular Rate, Rhythm Results/Procedures Lab Laboratory Tests 10/26/20 05:53 Patient resulted labs reviewed. Assessment/Plan Assessment and Plan Assess & Plan/Chief Complaint 10/22/20: PT OT Monitor closely DC catheter soon Monitor closely Supportive care 10/24/20: Monitor closely Severe alcoholism 10/25/20: Valium for torticollis Severe ETOHism ESTIVEN AQUINO DO Oct 25, 2020 12:06
[2020-10-25] MEDS: DIAZEPAM 5 MG (VALIUM) TABLET PO PRN ×2 (12:49→18:59)
[2020-10-26] MEDS: PIPERACILLIN/TAZOBACTAM (BULK) 4.5 GM in NS (IVPB) 100 ML IV SCH ×3 (00:01→16:27)
[2020-10-26] MEDS: RT-ALBUTEROL/IPRATROPIUM 3 ML (DUONEB) VIAL INH SCH ×4 (01:38→19:25)
[2020-10-26] MEDS: ENOXAPARIN 40 MG/0.4 ML (LOVENOX) SYR SC SCH (03:07)
[2020-10-26 03:27] VITALS: BP 99/60
[2020-10-26] MEDS: LORazepam 1 MG (ATIVAN) TAB PO PRN ×3 (04:16→16:27)
[2020-10-26 06:00] LABS: BASOPHILS # (AUTO) 0.1 10^3/uL (0.0-0.1); BASOPHILS % (AUTO) 1 % (0-10); EOSINOPHILS # (AUTO) 0.3 10^3/uL (0.0-0.3); EOSINOPHILS % (AUTO) 2 % (0-10); HEMATOCRIT 26 % (40-54); HEMOGLOBIN 8.6 g/dL (13.3-17.7); LYMPHOCYTES # (AUTO) 2.4 10^3/uL (1.0-4.0); LYMPHOCYTES % (AUTO) 18 % (12-44); MEAN CORPUSCULAR HEMOGLOBIN 28 pg (25-34); MEAN CORPUSCULAR HGB CONC 33 g/dL (32-36); MEAN CORPUSCULAR VOLUME 86 fL (80-99); MONOCYTES # (AUTO) 0.8 10^3/uL (0.0-1.0); MONOCYTES % (AUTO) 6 % (0-12); NEUTROPHILS # (AUTO) 9.3 10^3/uL (1.8-7.8); NEUTROPHILS % (AUTO) 71 % (42-75); PLATELET COUNT 541 10^3/uL (130-400); WHITE BLOOD COUNT 13.1 10^3/uL (4.3-11.0)
[2020-10-26 06:21] LABS: ALBUMIN 2.5 GM/DL (3.2-4.5); CHLORIDE 99 MMOL/L (98-107); POTASSIUM 4.1 MMOL/L (3.6-5.0); SODIUM 131 MMOL/L (135-145)
[2020-10-26 06:22] LABS: CALCIUM 8.1 MG/DL (8.5-10.1)
[2020-10-26 06:23] LABS: GLUCOSE 92 MG/DL (70-105); TOTAL PROTEIN 6.3 GM/DL (6.4-8.2)
[2020-10-26 06:24] LABS: CARBON DIOXIDE 21 MMOL/L (21-32)
[2020-10-26 06:25] LABS: BILIRUBIN,TOTAL 0.6 MG/DL (0.1-1.0)
[2020-10-26 06:26] LABS: PHOSPHORUS 2.8 MG/DL (2.3-4.7)
[2020-10-26 06:27] LABS: ALKALINE PHOSPHATASE 149 U/L (40-136); CREATININE SERUM 0.68 MG/DL (0.60-1.30); GFR ESTIMATED > 60
[2020-10-26 06:28] LABS: BUN/CREATININE RATIO 12
[2020-10-26 06:30] LABS: ALANINE AMINOTRANSFERASE 47 U/L (0-55)
--- NOTE | 2020-10-26 07:29 | Pulmonary Progress Note ---
Subjective Time Seen by a Provider: 07:27 Sepsis Event Evaluation Height, Weight, BMI Height: 6'1.00" Weight: 188lbs. 0.0oz. 85.879821zm; 25.96 BMI Method:Stated Exam Exam Vital Signs Date Time Temp Pulse Resp B/P (MAP) Pulse Ox O2 Delivery O2 Flow Rate FiO2 10/26/20 03:27 36.5 101 21 99/60 (73) 94 High Flow N/C 7.00 10/26/20 01:38 92 Nasal Cannula 7.00 10/25/20 23:55 36.8 104 21 107/58 (74) 95 High Flow N/C 7.00 10/25/20 20:36 36.2 105 21 101/61 (74) 98 High Flow N/C 7.00 10/25/20 20:30 98 High Flow N/C 7.00 10/25/20 18:37 94 Nasal Cannula 7.00 10/25/20 16:00 36.6 110 24 112/56 (74) 95 High Flow N/C 4.00 10/25/20 15:47 95 Nasal Cannula 7.00 10/25/20 11:13 86 High Flow N/C 4.00 10/25/20 11:04 36.8 128 24 111/78 (89) 93 High Flow N/C 4.00 10/25/20 09:00 37.1 98 20 107/62 (77) 96 High Flow N/C 4.00 10/25/20 08:45 96 High Flow N/C 3.00 10/25/20 08:00 113 19 105/68 (80) High Flow N/C 4.00 I & O 10/26/20 07:00 Intake Total 1580 ml Output Total 2650 ml Balance -1070 ml Height & Weight Height: 6'1.00" Weight: 188lbs. 0.0oz. 85.878954rq; 25.96 BMI Method:Stated General Appearance: No Apparent Distress, WD/WN, Anxious, Chronically ill HEENT: PERRL/EOMI, Normal ENT Inspection Neck: Non Tender, Supple Respiratory: Lungs Clear Cardiovascular: Regular Rate, Rhythm Capillary Refill: Less Than 3 Seconds Gastrointestinal: normal bowel sounds, non tender, soft; No guarding, No rebo und Extremity: Normal Capillary Refill, Normal Inspection Neurologic/Psychiatric: Alert Skin: Normal Color, Warm/Dry Results Lab Laboratory Tests 10/25/20 03:37 10/26/20 05:53 Assessment/Plan Assessment/Plan Acute on chronic respiratory failure - resolved -S/p extubation -Pt will probably need oxygen upon discharge --Currently requiring NC at 7 l/min -Check CTA of chest PNA with left infiltrate and hypoxia -Repeat Downing cultures - negative thus far Zosyn Pulmonary edema probably secondary to IVF BNP - is normal -IVF are SL Metabolic encephalopathy - much improved -Risperdol and haldol -Monitor - Continue Rifaxamine Hx of alcohol dependance -CIWA protocol -Pt has drug seeking behavior. He is requesting Ativan by specific dose. -D/C CIWA protocol and PRecedex - PRN Ativan 1mg Q 4 PRN -D/C morphine -He was admitted on 10/15 -UDS and ETOH was negative UTI -Continue Zosyn Acute renal failure Anemia -Monitor GI/DVT ppx -Lovenox and Protonix FANTA MILLER DO Oct 26, 2020 07:29
[2020-10-26 08:00] VITALS: BP 103/58
--- NOTE | 2020-10-26 08:15 | Physical Therapy Daily Note ---
PT Daily Note-Current Subjective States that he is ready to get back to bed. States that he has already been up by himself walking and doing exercises by himself this morning. Transfers SCALE: Activities may be completed with or without assistive devices. 2-Odviwtqecu-bkvfzlh completes the activity by him/herself with no assistance from a helper. 5-Set-up or Clean-up Assistance-helper sets up or cleans up; patient completes activity. [place] assists only prior to or following the activity. 4-Supervision or Touching Assistance-helper provides verbal cues and/or t ouching/steadying and/or contact guard assistance as patient completes activity. Assistance may be provided throughout the activity or intermittently. 3-Partial/Moderate Assistance-helper does LESS THAN HALF the effort. [place] lifts, holds or supports trunk or limbs, but provides less than half the effort. 2-Substantial/Maximal Assistance-helper does MORE THAN HALF the effort. [place] lifts or holds trunk or limbs and provides more than half the effort. 2-Ttyqwlaox-lhdnfp does ALL the effort. Patient does none of the effort to complete the activity. Or, the assistance of 2 or more helpers is required for the patient to complete the activity. If activity was not attempted, code reason: 7-Patient Refused. 9-Not Applicable-not attempted and the patient did not perform the activity before the current illness, exacerbation or injury. 10-Not Attempted due to Environmental Limitations-(lack of equipment, weather restraints, etc.). 88-Not Attempted due to Medical Conditions or Safety Concerns. Roll Left & Right (QC): 5 Sit to Lying (QC): 5 Sit to Stand (QC): 5 Gait Training Does the Patient Walk?: Yes Distance: 5' Gait Persons Needed: 1 Gait Assistive Device: FWW Assessment Current Status: Good Progress The patient was very anxious today and only wanted to get back to bed. PT Nursing Home Goals Wharf Helper Goals PT Wharf Helper Goals Time Frame: Nov 02, 2020 Roll Left & Right (QC): 6 Sit to Lying (QC): 6 Lying-Sitting on Side/Bed(QC): 6 Sit to Stand (QC): 6 Chair/Snf-xu-Khwfd Xfer(QC): 6 Toilet Transfer (QC): 6 Car Transfer (QC): 6 Does the Patient Walk: Yes Walk 10 feet (QC): 6 Walk 50ft with 2 Turns (QC): 6 Walk 150 ft (QC): 6 PT Plan Treatment/Plan Treatment Plan: Continue Plan of Care Treatment Plan: Bed Mobility, Education, Functional Activity Danna, Functional Strength, Gait, Safety, Therapeutic Exercise, Transfers Treatment Duration: Nov 02, 2020 Frequency: 6 times per week Estimated Hrs Per Day: .25 hour per day Patient and/or Family Agrees t: Yes Time/GCodes Time In: 755 Time Out: 805 Total Billed Treatment Time: 10 Total Billed Treatment 1, FA x 10' TAYA YUSUF PT Oct 26, 2020 08:15
[2020-10-26] MEDS: DIAZEPAM 5 MG (VALIUM) TABLET PO PRN ×3 (08:23→22:56)
[2020-10-26] MEDS: risperiDONE 1 MG (RisperDAL) TAB PO SCH ×2 (08:23→19:42)
[2020-10-26] MEDS: RIFAXIMIN 550 MG TABLET (XIFAXAN) PO SCH ×2 (08:23→19:42)
[2020-10-26] MEDS: PANTOPRAZOLE 40 MG (PROTONIX) TAB PO SCH (08:23)
[2020-10-26] MEDS: SPIRONOLACTONE 25 MG (ALDACTONE) TAB PO SCH (08:23)
[2020-10-26] MEDS ORDERED: HOLD METFORMIN - RECEIVED CONTRAST 20 ML VIAL IV SCH (11:30)
[2020-10-26] MEDS ORDERED: CATHETER FLUSH 10 ML SYR IV PRN (11:30)
[2020-10-26] MEDS ORDERED: NS 100 ML (IVPB) BAG IV ONE (11:30)
[2020-10-26] MEDS ORDERED: IOHEXOL 350 MG/ML 100 ML (OMNIPAQUE 350) VIAL IV ONE (11:30)
--- NOTE | 2020-10-26 11:57 | Diagnostic Imaging Report ---
EXAMINATION: CT angiography of the chest. TECHNIQUE: Contrast enhanced thin section helical images were obtained through the chest with intravenous contrast timed for the optimal opacification of the arterial structures per CTA protocol. Post-processing, reconstructions and interpretation of angiographic images of the vessels was performed. 3D MIP reconstructions were performed and reviewed. All CT scans use one or more of the following dose optimizing techniques: automated exposure control, MA and/or KvP adjustment based on a patient size and exam type, or iterative reconstruction. HISTORY: Cough and chest pain COMPARISON: None available. FINDINGS: There is no pulmonary embolism. There is bibasilar consolidation, left greater than right with small left pleural effusion most consistent with pneumonia. Patchy areas of nodularity are present in the upper lobes, as well. No pneumothorax. No suspicious nodules. There is no axillary or supraclavicular lymphadenopathy. Mildly enlarged mediastinal lymph nodes are likely reactive. Heart size is normal. There are mild coronary artery calcifications. No pericardial effusion. Aorta is normal in caliber. Limited views of the upper abdomen show hepatic steatosis. There are no suspicious osseus lesions. There are right 8th through 12th rib fractures. IMPRESSION: 1. No pulmonary embolism. 2. Bibasilar consolidation with a small left pleural effusion consistent with pneumonia. 3. Right 8th through 12th rib fractures appear acute to subacute. Dictated by: Dictated on workstation # [id number]
[2020-10-26 12:00] VITALS: BP 107/60
--- NOTE | 2020-10-26 13:06 | Progress Note - Hospitalist ---
Subjective HPI/CC On Admission Date Seen by Provider: Oct 26, 2020 Time Seen by Provider: 11:30 Subjective/Events-last exam Tachypnea noted so Dr Figueroa ordered CT angiogram IV abx remain Very slow to recover Cath still in place Valium helpful for left torticollis 86% on room air Review of Systems Pulmonary: Dyspnea, Cough Objective Exam Vital Signs Vital Signs Date Time Temp Pulse Resp B/P (MAP) Pulse Ox O2 Delivery O2 Flow Rate FiO2 10/27/20 04:11 36.8 78 22 98/54 (69) 92 High Flow N/C 5.00 10/21/20 08:00 40 Capillary Refill : Less Than 3 SecondsLess Than 3 Seconds General Appearance: No Apparent Distress, WD/WN, Chronically ill Respiratory: No Accessory Muscle Use, No Respiratory Distress, Decreased Breath Sounds Cardiovascular: Regular Rate, Rhythm, No Edema, No Gallop, No JVD, No Murmur, Normal Peripheral Pulses Neurologic/Psychiatric: Alert, Oriented x3, No Motor/Sensory Deficits, Normal Mood/Affect Results/Procedures Lab Laboratory Tests 10/27/20 05:27 Patient resulted labs reviewed. Assessment/Plan Assessment and Plan Assess & Plan/Chief Complaint 10/22/20: PT OT Monitor closely DC catheter soon Monitor closely Supportive care 10/24/20: Monitor closely Severe alcoholism 10/25/20: Valium for torticollis Severe ETOHism 10/26/20: CTA Slow recovery ESTIVEN AQUINO DO Oct 26, 2020 13:06
[2020-10-26 15:34] VITALS: BP 107/71
[2020-10-26 19:31] VITALS: BP 104/67
--- NOTE | 2020-10-26 23:00 | NUR ---
WENT TO CHECKED ON PT AND FOUND GOWN AND SHEETS ON THE FLOOR COVER IN [facility]. PT WAS IN BED UPON ENTERING THE ROOM . PT REPORTED THAT WAS TRYING TO GET OUT OF BED TO GO TO THE BATHROOM. ACCORDING TO PT HE FELL AND LANDED HIS BOTTOM AND HIS LEFT SIDE. HE DENIED HITTING HIS HEAD AND PAIN. VS STABLE. DR AQUINO NOTIFIED ABOUT THE SITUATION. EDUCATED PT ABOUT USING CALL LIGHT FROM NOW ON, AND BED ALARM ON. WILL CONTINUO TO MONITOR
[2020-10-27] MEDS: PIPERACILLIN/TAZOBACTAM (BULK) 4.5 GM in NS (IVPB) 100 ML IV SCH (00:25)
[2020-10-27 00:27] VITALS: BP 109/65
[2020-10-27] MEDS: LORazepam 1 MG (ATIVAN) TAB PO PRN ×2 (02:43→16:59)
[2020-10-27] MEDS: RT-ALBUTEROL/IPRATROPIUM 3 ML (DUONEB) VIAL INH SCH ×4 (03:10→21:20)
[2020-10-27] MEDS: ENOXAPARIN 40 MG/0.4 ML (LOVENOX) SYR SC SCH (03:54)
[2020-10-27 04:11] VITALS: BP 98/54
[2020-10-27 05:41] LABS: BASOPHILS # (AUTO) 0.1 10^3/uL (0.0-0.1); BASOPHILS % (AUTO) 1 % (0-10); EOSINOPHILS # (AUTO) 0.3 10^3/uL (0.0-0.3); EOSINOPHILS % (AUTO) 3 % (0-10); HEMATOCRIT 26 % (40-54); HEMOGLOBIN 8.6 g/dL (13.3-17.7); LYMPHOCYTES # (AUTO) 1.6 10^3/uL (1.0-4.0); LYMPHOCYTES % (AUTO) 18 % (12-44); MEAN CORPUSCULAR HEMOGLOBIN 29 pg (25-34); MEAN CORPUSCULAR HGB CONC 34 g/dL (32-36); MEAN CORPUSCULAR VOLUME 86 fL (80-99); MEAN PLATELET VOLUME 9.2 fL (9.0-12.2); MONOCYTES # (AUTO) 0.6 10^3/uL (0.0-1.0); MONOCYTES % (AUTO) 7 % (0-12); NEUTROPHILS # (AUTO) 6.5 10^3/uL (1.8-7.8); NEUTROPHILS % (AUTO) 70 % (42-75); PLATELET COUNT 520 10^3/uL (130-400); WHITE BLOOD COUNT 9.2 10^3/uL (4.3-11.0)
[2020-10-27 06:12] LABS: ALBUMIN 2.5 GM/DL (3.2-4.5); CHLORIDE 99 MMOL/L (98-107); POTASSIUM 3.5 MMOL/L (3.6-5.0); SODIUM 133 MMOL/L (135-145)
[2020-10-27 06:13] LABS: CALCIUM 7.9 MG/DL (8.5-10.1)
[2020-10-27 06:15] LABS: GLUCOSE 152 MG/DL (70-105)
[2020-10-27 06:16] LABS: CARBON DIOXIDE 23 MMOL/L (21-32)
[2020-10-27 06:17] LABS: BILIRUBIN,TOTAL 0.3 MG/DL (0.1-1.0)
[2020-10-27 06:18] LABS: ALKALINE PHOSPHATASE 133 U/L (40-136); CREATININE SERUM 0.69 MG/DL (0.60-1.30); GFR ESTIMATED > 60; PHOSPHORUS 2.8 MG/DL (2.3-4.7)
[2020-10-27 06:20] LABS: BUN/CREATININE RATIO 10
[2020-10-27 06:21] LABS: ALANINE AMINOTRANSFERASE 43 U/L (0-55)
[2020-10-27 06:22] LABS: MAGNESIUM 1.9 MG/DL (1.6-2.4)
--- NOTE | 2020-10-27 07:08 | Pulmonary Progress Note ---
Subjective Time Seen by a Provider: 10:06 Sepsis Event Evaluation Height, Weight, BMI Height: 6'1.00" Weight: 188lbs. 0.0oz. 85.659898vk; 25.96 BMI Method:Stated Exam Exam Vital Signs Date Time Temp Pulse Resp B/P (MAP) Pulse Ox O2 Delivery O2 Flow Rate FiO2 10/27/20 04:11 36.8 78 22 98/54 (69) 92 High Flow N/C 5.00 10/27/20 03:10 90 Nasal Cannula 5.00 10/27/20 00:27 36.2 111 20 109/65 (80) 94 High Flow N/C 5.00 10/26/20 19:45 High Flow N/C 6.00 10/26/20 19:31 36.8 97 22 104/67 (79) 96 High Flow N/C 5.00 10/26/20 19:26 Nasal Cannula 5.00 10/26/20 15:34 37.0 95 20 107/71 (83) 92 High Flow N/C 5.00 10/26/20 15:32 88 Nasal Cannula 5.00 10/26/20 12:00 37.0 103 20 107/60 (76) 93 High Flow N/C 5.00 10/26/20 09:58 93 Nasal Cannula 5.00 10/26/20 08:00 95 High Flow N/C 5.00 10/26/20 08:00 36.7 106 16 103/58 (73) 95 High Flow N/C 5.00 I & O 10/27/20 06:59 Intake Total 1885 ml Output Total 3650 ml Balance -1765 ml Height & Weight Height: 6'1.00" Weight: 188lbs. 0.0oz. 85.913248dp; 25.96 BMI Method:Stated General Appearance: No Apparent Distress, WD/WN, Anxious, Chronically ill HEENT: PERRL/EOMI, Normal ENT Inspection Neck: Non Tender, Supple Respiratory: No Accessory Muscle Use, No Respiratory Distress, Decreased Breath Sounds Cardiovascular: Regular Rate, Rhythm Capillary Refill: Less Than 3 Seconds Gastrointestinal: normal bowel sounds, non tender, soft; No guarding, No rebou nd Extremity: Normal Capillary Refill, Normal Inspection Neurologic/Psychiatric: Alert Skin: Normal Color, Warm/Dry Results Lab Laboratory Tests 10/26/20 05:53 10/27/20 05:27 Assessment/Plan Assessment/Plan Acute on chronic respiratory failure - resolved -S/p extubation -Pt will probably need oxygen upon discharge --Currently requiring NC at 5 l/min - CTA of chest -shows bibasilar infiltrates with small effsuion -Continue Zosyn and monitor PNA with left infiltrate and hypoxia -Repeat Downing cultures - negative thus far Zosyn Rib fractures right 8-[address] scan Pulmonary edema probably secondary to IVF BNP - is normal -IVF are SL Metabolic encephalopathy - much improved -Risperdol and haldol -Monitor - Continue Rifaxamine Hx of alcohol dependance -CIWA protocol -Pt has drug seeking behavior. He is requesting Ativan by specific dose. -D/C CIWA protocol and PRecedex - PRN Ativan 1mg Q 4 PRN -D/C morphine -He was admitted on 10/15 -UDS and ETOH was negative UTI -Continue Zosyn Acute renal failure Anemia -Monitor GI/DVT ppx -Lovenox and Protonix FANTA MILLER DO Oct 27, 2020 07:08
[2020-10-27] MEDS ORDERED: KCL 20 MEQ TAB (K-DUR) PO ONE (07:15)
[2020-10-27 08:00] VITALS: BP 95/54
[2020-10-27] MEDS: SPIRONOLACTONE 25 MG (ALDACTONE) TAB PO SCH (09:15)
[2020-10-27] MEDS: risperiDONE 1 MG (RisperDAL) TAB PO SCH ×2 (09:15→20:41)
[2020-10-27] MEDS: RIFAXIMIN 550 MG TABLET (XIFAXAN) PO SCH ×2 (09:15→20:41)
[2020-10-27] MEDS: PANTOPRAZOLE 40 MG (PROTONIX) TAB PO SCH (09:15)
[2020-10-27 12:00] VITALS: BP 89/54
--- NOTE | 2020-10-27 12:31 | Progress Note - Hospitalist ---
Subjective HPI/CC On Admission Date Seen by Provider: Oct 27, 2020 Time Seen by Provider: 11:30 Subjective/Events-last exam Had a fall last night No injury Catheter will be removed today Overall feels good Review of Systems General: Fatigue, Malaise Objective Exam Vital Signs Vital Signs Date Time Temp Pulse Resp B/P (MAP) Pulse Ox O2 Delivery O2 Flow Rate FiO2 10/27/20 15:51 36.3 98 20 116/72 (87) 96 High Flow N/C 6.00 10/21/20 08:00 40 Capillary Refill : Less Than 3 SecondsLess Than 3 Seconds General Appearance: No Apparent Distress, WD/WN, Chronically ill Respiratory: Chest Non Tender, Lungs Clear, Normal Breath Sounds, No Accessory Muscle Use, No Respiratory Distress Cardiovascular: Regular Rate, Rhythm, No Edema, No Gallop, No JVD, No Murmur, Normal Peripheral Pulses Neurologic/Psychiatric: Alert, Oriented x3, No Motor/Sensory Deficits, Normal Mood/Affect Results/Procedures Lab Laboratory Tests 10/27/20 05:27 Patient resulted labs reviewed. Assessment/Plan Assessment and Plan Assess & Plan/Chief Complaint 10/22/20: PT OT Monitor closely DC catheter soon Monitor closely Supportive care 10/24/20: Monitor closely Severe alcoholism 10/25/20: Valium for torticollis Severe ETOHism 10/26/20: CTA Slow recovery 10/27/20: Monitor closely DC catheter PT OT GUILLERMO AQUINOESTIVEN LIMA Oct 27, 2020 12:31
[2020-10-27 15:51] VITALS: BP 116/72
[2020-10-27 20:28] VITALS: BP 120/60
[2020-10-28] VITALS (8 sets, daily range): BP systolic 101–133; BP diastolic 57–78
[2020-10-28] MEDS: DIAZEPAM 5 MG (VALIUM) TABLET PO PRN (02:29)
[2020-10-28] MEDS: RT-ALBUTEROL/IPRATROPIUM 3 ML (DUONEB) VIAL INH SCH ×4 (02:38→22:03)
[2020-10-28] MEDS: ENOXAPARIN 40 MG/0.4 ML (LOVENOX) SYR SC SCH (05:23)
[2020-10-28 05:54] LABS: BASOPHILS # (AUTO) 0.1 10^3/uL (0.0-0.1); BASOPHILS % (AUTO) 1 % (0-10); EOSINOPHILS # (AUTO) 0.3 10^3/uL (0.0-0.3); EOSINOPHILS % (AUTO) 4 % (0-10); HEMATOCRIT 27 % (40-54); HEMOGLOBIN 8.8 g/dL (13.3-17.7); LYMPHOCYTES % (AUTO) 26 % (12-44); MEAN CORPUSCULAR HEMOGLOBIN 28 pg (25-34); MEAN CORPUSCULAR HGB CONC 32 g/dL (32-36); MEAN CORPUSCULAR VOLUME 88 fL (80-99); MEAN PLATELET VOLUME 9.1 fL (9.0-12.2); MONOCYTES # (AUTO) 0.7 10^3/uL (0.0-1.0); MONOCYTES % (AUTO) 9 % (0-12); NEUTROPHILS # (AUTO) 4.5 10^3/uL (1.8-7.8); NEUTROPHILS % (AUTO) 58 % (42-75); PLATELET COUNT 623 10^3/uL (130-400); WHITE BLOOD COUNT 7.8 10^3/uL (4.3-11.0)
[2020-10-28 06:09] LABS: ALBUMIN 2.7 GM/DL (3.2-4.5); CHLORIDE 101 MMOL/L (98-107); POTASSIUM 3.9 MMOL/L (3.6-5.0); SODIUM 134 MMOL/L (135-145)
[2020-10-28 06:10] LABS: CALCIUM 8.3 MG/DL (8.5-10.1)
[2020-10-28 06:11] LABS: GLUCOSE 122 MG/DL (70-105)
[2020-10-28 06:12] LABS: TOTAL PROTEIN 6.5 GM/DL (6.4-8.2)
[2020-10-28 06:13] LABS: BILIRUBIN,TOTAL 0.3 MG/DL (0.1-1.0); CARBON DIOXIDE 25 MMOL/L (21-32)
[2020-10-28 06:15] LABS: ALKALINE PHOSPHATASE 124 U/L (40-136); CREATININE SERUM 0.67 MG/DL (0.60-1.30); GFR ESTIMATED > 60; PHOSPHORUS 3.1 MG/DL (2.3-4.7)
[2020-10-28 06:16] LABS: BUN/CREATININE RATIO 7
[2020-10-28 06:18] LABS: ALANINE AMINOTRANSFERASE 43 U/L (0-55)
[2020-10-28] MEDS: PANTOPRAZOLE 40 MG (PROTONIX) TAB PO SCH (07:56)
[2020-10-28] MEDS: LORazepam 1 MG (ATIVAN) TAB PO PRN ×3 (07:56→19:54)
[2020-10-28] MEDS: SPIRONOLACTONE 25 MG (ALDACTONE) TAB PO SCH (07:56)
[2020-10-28] MEDS: risperiDONE 1 MG (RisperDAL) TAB PO SCH ×2 (07:56→19:45)
[2020-10-28] MEDS: RIFAXIMIN 550 MG TABLET (XIFAXAN) PO SCH ×2 (07:56→19:45)
--- NOTE | 2020-10-28 09:17 | Pulmonary Progress Note ---
Subjective Time Seen by a Provider: 09:17 Sepsis Event Evaluation Height, Weight, BMI Height: 6'1.00" Weight: 188lbs. 0.0oz. 85.896390di; 25.96 BMI Method:Stated Exam Exam Vital Signs Date Time Temp Pulse Resp B/P (MAP) Pulse Ox O2 Delivery O2 Flow Rate FiO2 10/28/20 07:28 36.1 104 20 122/67 (85) 96 High Flow N/C 6.00 10/28/20 04:00 36.3 96 21 109/60 (76) 95 High Flow N/C 6.00 10/28/20 02:39 90 Nasal Cannula 7.00 10/28/20 00:32 36.3 95 22 107/65 (79) 94 High Flow N/C 6.00 10/27/20 21:20 94 Nasal Cannula 7.00 10/27/20 20:28 36.2 97 20 120/60 (80) 98 High Flow N/C 5.00 10/27/20 19:40 High Flow N/C 7.00 10/27/20 15:51 36.3 98 20 116/72 (87) 96 High Flow N/C 6.00 10/27/20 14:12 94 Nasal Cannula 7.00 10/27/20 12:00 36.3 58 20 89/54 (66) 92 High Flow N/C 6.00 10/27/20 09:20 92 Nasal Cannula 7.00 I & O 10/28/20 07:00 Intake Total 2540 ml Output Total 2500 ml Balance 40 ml Height & Weight Height: 6'1.00" Weight: 188lbs. 0.0oz. 85.995472ck; 25.96 BMI Method:Stated General Appearance: No Apparent Distress, WD/WN, Chronically ill HEENT: PERRL/EOMI, Normal ENT Inspection Neck: Non Tender, Supple Respiratory: Chest Non Tender, Lungs Clear, Normal Breath Sounds, No Accessory Muscle Use, No Respiratory Distress Cardiovascular: Regular Rate, Rhythm, No Edema, No Gallop, No JVD, No Murmur, Normal Peripheral Pulses Capillary Refill: Less Than 3 Seconds Gastrointestinal: normal bowel sounds, non tender, soft; No guarding, No rebound Extremity: Normal Capillary Refill, Normal Inspection Neurologic/Psychiatric: Alert, Oriented x3, No Motor/Sensory Deficits, Normal Mood/Affect Skin: Normal Color, Warm/Dry Results Lab Laboratory Tests 10/27/20 05:27 10/28/20 05:04 Assessment/Plan Assessment/Plan Acute on chronic respiratory failure - resolved -S/p extubation -Pt will probably need oxygen upon discharge --Currently requiring NC at 5 l/min - CTA of chest -shows bibasilar infiltrates with small effsuion -Continue Zosyn and monitor PNA with left infiltrate and hypoxia -Repeat [place] cultures - negative thus far Zosyn Rib fractures right 8-[address] scan Pulmonary edema probably secondary to IVF BNP - is normal -IVF are SL Metabolic encephalopathy - much improved -Risperdol and haldol -Monitor - Continue Rifaxamine Hx of alcohol dependance -CIWA protocol -Pt has drug seeking behavior. He is requesting Ativan by specific dose. -D/C CIWA protocol and PRecedex - PRN Ativan 1mg Q 4 PRN -D/C morphine -He was admitted on 10/15 -UDS and ETOH was negative UTI -Continue Zosyn Acute renal failure Anemia -Monitor GI/DVT ppx -Lovenox and Protonix FANTA MILLER DO Oct 28, 2020 09:17
--- NOTE | 2020-10-28 11:58 | Physical Therapy Daily Note ---
PT Daily Note-Current Subjective Patient agrees to PT. OT present. Mental Status Patient Orientation: Person, Time, Situation Attachments: Oxygen Transfers SCALE: Activities may be completed with or without assistive devices. 8-Syoomuylib-rkmnxbo completes the activity by him/herself with no assistance from a helper. 5-Set-up or Clean-up Assistance-helper sets up or cleans up; patient completes activity. [place] assists only prior to or following the activity. 4-Supervision or Touching Assistance-helper provides verbal cues and/or touching/steadying and/or contact guard assistance as patient completes activity. Assistance may be provided throughout the activity or intermittently. 3-Partial/Moderate Assistance-helper does LESS THAN HALF the effort. [place] lifts, holds or supports trunk or limbs, but provides less than half the effort. 2-Substantial/Maximal Assistance-helper does MORE THAN HALF the effort. [place] lifts or holds trunk or limbs and provides more than half the effort. 5-Kbtzjlwjk-dfpuzk does ALL the effort. Patient does none of the effort to complete the activity. Or, the assistance of 2 or more helpers is required for the patient to complete the activity. If activity was not attempted, code reason: 7-Patient Refused. 9-Not Applicable-not attempted and the patient did not perform the activity before the current illness, exacerbation or injury. 10-Not Attempted due to Environmental Limitations-(lack of equipment, weather restraints, etc.). 88-Not Attempted due to Medical Conditions or Safety Concerns. Sit to Lying (QC): 6 Lying to Sitting/Side of Bed(Q: 6 Sit to Stand (QC): 3 Chair/Ggd-ql-Kxavg Xfer(QC): 3 Patient is impulsive and unaware of safety concerns. Chair and bed alarms utilized for patient safety Gait Training Does the Patient Walk?: Yes Distance: 225' Walk 10 feet (QC): 3 Walk 50 ft with 2 Turns(QC): 3 Walk 150 ft (QC): 3 Gait Assistive Device: FWW NBOS/steady gait sequence Assessment Patient is up in recliner with chair alarm activated. PT to increase activity as tolerated by patient. PT Draw Machine Operator Goals Intermediate Goals PT Draw Machine Operator Goals Time Frame: Nov 02, 2020 Roll Left & Right (QC): 6 Sit to Lying (QC): 6 Lying-Sitting on Side/Bed(QC): 6 Sit to Stand (QC): 6 Chair/Mds-dt-Fjzam Xfer(QC): 6 Toilet Transfer (QC): 6 Car Transfer (QC): 6 Does the Patient Walk: Yes Walk 10 feet (QC): 6 Walk 50ft with 2 Turns (QC): 6 Walk 150 ft (QC): 6 PT Plan Treatment/Plan Treatment Plan: Continue Plan of Care Treatment Plan: Bed Mobility, Education, Functional Activity Danna, Functional Strength, Gait, Safety, Therapeutic Exercise, Transfers Treatment Duration: Nov 02, 2020 Frequency: 6 times per week Estimated Hrs Per Day: .25 hour per day Patient and/or Family Agrees t: Yes Time/GCodes Time In: 1038 Time Out: 1050 Total Billed Treatment Time: 12 Total Billed Treatment 1 visit GT 12min NANCY ALLEN PT Oct 28, 2020 11:58
--- NOTE | 2020-10-28 13:50 | Occupational Ther Daily Note ---
OT Current Status-Daily Note Subjective No pain reported. Appearance Pt. in bed. Alert. Agrees to work with therapy. Mental Status/Objective Patient Orientation: Person Attachments: Oxygen ADL-Treatment Therapy Code Descriptions/Definitions Functional [place] Measure: 0=Not Assessed/NA 4=Minimal Assistance 1=Total Assistance 5=Supervision or Setup 2=Maximal Assistance 6=Modified [place] 3=Moderate Assistance 7=Complete IndependenceSCALE: Activities may be completed with or without assistive devices. 1-Byfvvynxbk-ftnnkzd completes the activity by him/herself with no assistance from a helper. 5-Set-up or Clean-up Assistance-helper sets up or cleans up; patient completes activity. [place] assists only prior to or following the activity. 4-Supervision or Touching Assistance-helper provides verbal cues and/or touching/steadying and/or contact guard assistance as patient completes activity. Assistance may be provided throughout the activity or intermittently. 3-Partial/Moderate Assistance-helper does LESS THAN HALF the effort. [place] lifts, holds or supports trunk or limbs, but provides less than half the effort. 2-Substantial/Maximal Assistance-helper does MORE THAN HALF the effort. [place] lifts or holds trunk or limbs and provides more than half the effort. 9-Nrwukbhdy-uywlea does ALL the effort. Patient does none of the effort to complete the activity. Or, the assistance of 2 or more helpers is required for the patient to complete the activity. If activity was not attempted, code reason: 7-Patient Refused. 9-Not Applicable-not attempted and the patient did not perform the activity before the current illness, exacerbation or injury. 10-Not Attempted due to Environmental Limitations-(lack of equipment, weather restraints, etc.). 88-Not Attempted due to Medical Conditions or Safety Concerns. Oral Hygiene (QC): 7 (Pt. declines brushing teeth but states that he would like to brush them after lunch.) Other Treatment OT talks with pt while pt. at bed level. Pt. indicates that he remembers this therapist from last week, from last session together. Pt. states that he is feeling better, and agrees to get up. However, once OT begins to prompt him through the steps to sitting up, pt. has difficulty sequencing the task. Asks if OT will be here tomorrow, and he will just wait until then. OT gently explains that in order to regain his strength, he has to move and work with therapy. Pt. agrees. Transfers supine-sit with min assist. Pt. is able to sit on side of bed with no difficulty with balance. Pt. on 6L 02. PT comes into room and both therapists work with pt. due to need of skilled assistance x 2 for ambulation. Pt. stood at side of bed with CGA. Pt. used walker, but noted that he was "wobbly." Pt. ambulated down bond, (please see PT note for distance.) Required CGA and cues with walker, as well as oxygen follow. Sats taken during ambulation and were at 97%. Oxygen bumped to 4L. Pt. continued to walk, and sats taken again. They were at 95%. Nursing okay for therapy to move pt. to 4L. PT facilitated education for gait training and sequencing while OT facilitated education regarding safety. OT educates pt. to not get up on his own. Pt. shown again how to use call light and call nursing. Pt. verbalizes understanding. Pt. transferred to chair in room, with all needs met. Chair alarm set. Pt. with call light and water. Education OT Patient Education: Correct positioning, Modified ADL techniques, Progress toward Goal/Update tx plan, Purpose of tx/functional activities, Reviewed precautions, Rehab process, Transfer techniques Teaching Recipient: Patient Teaching Methods: Demonstration, Discussion Response to Teaching: Verbalize Understanding, Return Demonstration, Reinforcement Needed OT Short Term Goals Short Term Goals Eatin Oral hygiene: 5 Toileting hygiene: 2 Shower/bathe self: 2 Upper body dressin Lower body dressin Putting on/taking off footwear: 3 OT Sewage Reticulation Drafting Officer Goals Sewage Reticulation Drafting Officer Goals Time Frame: Oct 29, 2020 Eating (QC): 6 Oral Hygiene (QC): 6 Toileting Hygiene (QC): 4 Shower/Bathe Self (QC): 4 Upper Body Dressing (QC): 6 Lower Body Dressing (QC): 3 On/Off Footwear (QC): 4 Additional Goals: 1-Demonstrate ADL Tasks, 2-Verbalize Understanding, 3- ImproveStrength/[place] 1=Demonstrate adherence to instructed precautions during ADL tasks. 2=Patient will verbalize/demonstrate understanding of assistive devices/modifications for ADL. 3=Patient will improve strength/tolerance for activity to enable patient to perform ADL's. OT Education/Plan Problem List/Assessment Assessment: Decreased Activ Tolerance, Dependent Transfers, Impaired Cognition, Impaired Funct Balance, Impaired I ADL's, Impaired Self-Care Skills Discharge Recommendations Plan/Recommendations: Continue POC Therapy Discharge Recommendati: 24 Hour Supervision, Post Acute OT Treatment Plan/Plan of Care Treatment,Training & Education: Yes Patient would benefit from OT for education, treatment and training to promote independence in ADL's, mobility, safety and/or upper extremity function for ADL's. Plan of Care: ADL Retraining, Caregiver Training, Functional Mobility, UE Funct Exercise/Act, UE Neuromus Re-Ed/Coord Treatment Duration: Oct 29, 2020 Frequency: 5 times per week Estimated Hrs Per Day: .25 hour per day Agreement: Yes Rehab Potential: Fair Time/GCodes Start Time: 10:33 Stop Time: 10:50 Total Time Billed (hr/min): 17 Billed Treatment Time 1, FA x 17minutes Please see PT note for time in room. Please see note above for designated roles. RAUDEL WAGNER OT Oct 28, 2020 13:50
--- NOTE | 2020-10-28 15:16 | NUR ---
CM/SS: Visited with pt as to his current status, and his plan for discharge. Plan: Pt is from home and will likely return there - with outpatient alcohol service. Summary: Pt reports he is feeling pretty good today and reports he may be able to go home on Wednesday or . He is reminded that he can have visitors due to the change of policy. He reports he does not want to bother his girls and so he is fine here. He thanks this worker for following up with him again today. He is ok for this worker to reach out to one of his daughters. Telephone Call to [place] - [phone] - Message left as she did not answer.
--- NOTE | 2020-10-28 16:09 | NUR ---
IRF Evaluation Determination: Denied Chart review complete and findings discussed with Dr. Sotomayor. It was determined the patient is not expected to actively participate in, and benefit significantly from, the intensive rehabilitation therapy program. Thank you for this referral.
--- NOTE | 2020-10-28 19:00 | Progress Note ---
Subjective Subjective/Events-last exam Afebrile, reports feeling fairly well, did have to turn oxygen up some this morning with activity, but back down now. He is hopeful to get to go home soon. Objective Exam Last Set of Vital Signs Vital Signs Date Time Temp Pulse Resp B/P (MAP) Pulse Ox O2 Delivery O2 Flow Rate FiO2 10/28/20 16:18 35.9 104 20 133/67 (89) 94 Nasal Cannula 2.00 Capillary Refill : Less Than 3 SecondsLess Than 3 Seconds I&O Intake and Output 10/28/20 00:00 Intake Total 2345 ml Output Total 2350 ml Balance -5 ml Intake Oral 2345 ml Output Urine Total 2350 ml # Bowel Movements 2 General: Alert, No Acute Distress Lungs: Clear to Auscultation, Normal Air Movement Heart: Regular Rate, No Murmurs Abdomen: Normal Bowel Sounds, Soft Extremities: No Edema Neuro: Normal Speech Psych/Mental Status: Mental Status NL Results/Procedures Lab Laboratory Tests 10/28/20 05:04: White Blood Count 7.8, Red Blood Count 3.12L, Hemoglobin 8.8L, Hematocrit 27L, Mean Corpuscular Volume 88, Mean Corpuscular Hemoglobin 28, Mean Corpuscular Hemoglobin Concent 32, Red Cell Distribution Width 17.2H, Platelet Count 623H, Mean Platelet Volume 9.1, Immature Granulocyte % (Auto) 2, Neutrophils (%) (Auto) 58, Lymphocytes (%) (Auto) 26, Monocytes (%) (Auto) 9, Eosinophils (%) (Auto) 4, Basophils (%) (Auto) 1, Neutrophils # (Auto) 4.5, Lymphocytes # (Auto) 2.0, Monocytes # (Auto) 0.7, Eosinophils # (Auto) 0.3, Basophils # (Auto) 0.1, Immature Granulocyte # (Auto) 0.1, Sodium Level 134L, Potassium Level 3.9, Chloride Level 101, Carbon Dioxide Level 25, Anion Gap 8, Blood Urea Nitrogen 5L , Creatinine 0.67, Estimat Glomerular Filtration Rate > 60, BUN/Creatinine Ratio 7, Glucose Level 122H, Calcium Level 8.3L, Corrected Calcium 9.3, Phosphorus Level 3.1, Magnesium Level 2.0, Total Bilirubin 0.3, Aspartate Amino Transf (AST/SGOT) 39H, Alanine Aminotransferase (ALT/SGPT) 43, Alkaline Phosphatase 124, Total Protein 6.5, Albumin 2.7L Microbiology 10/21/20 Blood Culture - Final, Complete No growth 10/21/20 Gram Stain - Final, Complete 10/21/20 Sputum Culture - Final, Complete Usual upper respiratory oziel 10/15/20 Urine Culture - Final, Complete NO GROWTH Assessment/Plan Assessment/Plan (1) Altered mental status Status: Resolved Assessment & Plan: - Sepsis vs EtOH withdraw vs Ammonia, continue to monitor 10/17: Metabolic encephalopathy, Dr Figueroa consulted, appreciated recommendations, started on Lactulose and Xifaxan today 10/18: Intubated and sedated, labs improving 10/28 s/p mechanical ventilation and extubation, doing well and oriented appropriately today. CT head on admit without significant acute findings. Qualifiers: Qualified Codes: R41.82 - Altered mental status, unspecified (2) Alcohol withdrawal Status: Acute Assessment & Plan: -EtOH negative on admit 10/15, outside of window for dangerous withdrawal. Was on CIWA, banana bag previously. Still has ativan ordered prn anxiety, will not plan to continue on d/c. SW consulted for post- discharge rehab planning. Qualifiers: Qualified Codes: F10.231 - Alcohol dependence with withdrawal delirium (3) Normocytic anemia Status: Acute Assessment & Plan: Worsening, was normal a few months ago. Check iron studies and peripheral smear, stool occult blood. (4) Acute renal failure Status: Resolved Assessment & Plan: - Likely 2/2 to profound dehydration, resolved. (5) Elevated liver enzymes Status: Chronic Assessment & Plan: Improved since admit, suspect initially acute alcoholic hep atitis. Now stable at baseline with mild elevation. Hep panel negative 05/2020. (6) Hypokalemia Status: Resolved Assessment & Plan: - Replace and repeat BMP (7) Hyponatremia Status: Acute Assessment & Plan: Likely hypovolemic and alcohol related. Improved and then recurred, mild and improving. (8) Acute respiratory failure Status: Acute Assessment & Plan: s/p mechanical ventilation, currently on 6 lpm supplemental oxygen, wean as tolerated. Qualifiers: Qualified Codes: J96.01 - Acute respiratory failure with hypoxia (9) Esophageal thickening Status: Acute Assessment & Plan: Noted on CT done 05/2020 ER visit, needs to have endoscopy done outpatient for further work-up. (10) Left lower lobe pneumonia Status: Acute Assessment & Plan: Treated with zosyn 10/16-10/27 (11) Multiple rib fractures Status: Acute Assessment & Plan: Acute/subacute right 8-12, no significant issues currently (12) DVT prophylaxis Status: Acute Assessment & Plan: Enoxaparin SHY DRAKE MD Oct 28, 2020 19:00
[2020-10-29] MEDS: LORazepam 1 MG (ATIVAN) TAB PO PRN ×2 (01:32→13:59)
[2020-10-29] MEDS: RT-ALBUTEROL/IPRATROPIUM 3 ML (DUONEB) VIAL INH SCH ×3 (02:05→14:25)
[2020-10-29] MEDS: ENOXAPARIN 40 MG/0.4 ML (LOVENOX) SYR SC SCH (04:17)
[2020-10-29 04:19] VITALS: BP 101/59
[2020-10-29 05:18] LABS: BASOPHILS # (AUTO) 0.1 10^3/uL (0.0-0.1); LYMPHOCYTES # (AUTO) 2.3 10^3/uL (1.0-4.0); LYMPHOCYTES % (AUTO) 30 % (12-44); MEAN CORPUSCULAR HGB CONC 33 g/dL (32-36); MEAN CORPUSCULAR VOLUME 87 fL (80-99)
[2020-10-29 06:25] LABS: ANISOCYTOSIS SLIGHT; ATYPICAL LYMPHOCYTES 3 %; BAND NEUTROPHILS 1 %; BASOPHILS % (MANUAL) 2 %; EOSINOPHILS % (MANUAL) 3 %; LYMPHOCYTES % (MANUAL) 22 %; METAMYELOCYTES % 1 %; MICROCYTOSIS SLIGHT; MONOCYTES % (MANUAL) 6 %; NEUTROPHILS % (MANUAL) 62 %
[2020-10-29 07:04] LABS: ABSOLUTE RETIC # 92 10e9/uL (24-90); BASOPHILS % (AUTO) 1 % (0-10); EOSINOPHILS # (AUTO) 0.3 10^3/uL (0.0-0.3); EOSINOPHILS % (AUTO) 4 % (0-10); HEMATOCRIT 28 % (40-54); HEMOGLOBIN 9.1 g/dL (13.3-17.7); MEAN CORPUSCULAR HEMOGLOBIN 28 pg (25-34); MONOCYTES # (AUTO) 0.6 10^3/uL (0.0-1.0); MONOCYTES % (AUTO) 8 % (0-12); NEUTROPHILS # (AUTO) 4.3 10^3/uL (1.8-7.8); NEUTROPHILS % (AUTO) 56 % (42-75); PLATELET COUNT 665 10^3/uL (130-400); RETICULOCYTE % 2.86 % (0.50-2.40); WHITE BLOOD COUNT 7.8 10^3/uL (4.3-11.0)
[2020-10-29 08:00] VITALS: BP 125/65
--- NOTE | 2020-10-29 08:05 | Pulmonary Progress Note ---
Subjective Time Seen by a Provider: 08:03 Subjective/Events-last exam No complications noted. Sepsis Event Evaluation Height, Weight, BMI Height: 6'." Weight: 188lbs. 0.0oz. 85.455975mo; 25.96 BMI Method:Stated Exam Exam Vital Signs Date Time Temp Pulse Resp B/P (MAP) Pulse Ox O2 Delivery O2 Flow Rate FiO2 10/29/20 06:39 97 Nasal Cannula 3.00 10/29/20 04:19 37.2 94 20 101/59 (73) 94 Nasal Cannula 3.00 10/28/20 23:13 35.5 98 20 109/73 (85) 96 Nasal Cannula 3.00 10/28/20 22:55 93 Nasal Cannula 3.00 10/28/20 22:50 88 Nasal Cannula 2.00 10/28/20 22:03 92 Nasal Cannula 2.00 10/28/20 19:46 High Flow N/C 2.00 10/28/20 19:23 36.2 99 20 101/57 (72) 93 Nasal Cannula 2.00 10/28/20 16:18 35.9 104 20 133/67 (89) 94 Nasal Cannula 2.00 10/28/20 15:06 91 Nasal Cannula 2.00 10/28/20 14:45 35.8 102 93 10/28/20 14:45 93 High Flow N/C 3.00 10/28/20 12:00 35.8 102 18 112/78 (89) 97 High Flow N/C 6.00 10/28/20 11:16 94 High Flow N/C 4.00 I & O 10/29/20 07:00 Intake Total 960 ml Output Total 300 ml Balance 660 ml Height & Weight Height: 6'1.00" Weight: 188lbs. 0.0oz. 85.684668gd; 25.96 BMI Method:Stated General Appearance: No Apparent Distress, WD/WN, Chronically ill HEENT: PERRL/EOMI, Normal ENT Inspection Neck: Non Tender, Supple Respiratory: Chest Non Tender, Lungs Clear, Normal Breath Sounds, No Accessory Muscle Use, No Respiratory Distress Cardiovascular: Regular Rate, Rhythm, No Edema, No Gallop, No JVD, No Murmur, Normal Peripheral Pulses Capillary Refill: Less Than 3 Seconds Gastrointestinal: normal bowel sounds, non tender, soft; No guarding, No rebound Extremity: Normal Capillary Refill, Normal Inspection Neurologic/Psychiatric: Alert, Oriented x3, No Motor/Sensory Deficits, Normal Mood/Affect Skin: Normal Color, Warm/Dry Results Lab Laboratory Tests 10/28/20 05:04 10/29/20 05:06 Assessment/Plan Assessment/Plan Acute on chronic respiratory failure - resolved -S/p extubation -Pt will probably need oxygen upon discharge --Currently requiring NC at 3 l/min -- Continue to titrate down. PNA with left infiltrate and hypoxia -Repeat [place] cultures - negative thus far Zosyn Rib fractures right 8-[address] scan Pulmonary edema probably secondary to IVF BNP - is normal -IVF are SL Metabolic encephalopathy - much improved -Risperdol and haldol -Monitor - Continue Rifaxamine Hx of alcohol dependance -CIWA protocol -Pt has drug seeking behavior. He is requesting Ativan by specific dose. -D/C CIWA protocol and PRecedex - PRN Ativan 1mg Q 4 PRN -D/C morphine -He was admitted on 10/15 -UDS and ETOH was negative UTI Acute renal failure Anemia -Monitor GI/DVT ppx -Lovenox and Protonix FANTA MILLER DO Oct 29, 2020 08:05
[2020-10-29] MEDS: PANTOPRAZOLE 40 MG (PROTONIX) TAB PO SCH (08:28)
[2020-10-29] MEDS: RIFAXIMIN 550 MG TABLET (XIFAXAN) PO SCH (08:28)
[2020-10-29] MEDS: SPIRONOLACTONE 25 MG (ALDACTONE) TAB PO SCH (08:28)
[2020-10-29] MEDS: risperiDONE 1 MG (RisperDAL) TAB PO SCH (08:28)
--- NOTE | 2020-10-29 09:21 | Occupational Ther Daily Note ---
OT Current Status-Daily Note Subjective Pt sitting in bed with HOB slightly elevated. Pt agrees to OT tx session, though denies OOB as he just got back to bed. Pt agrees to sponge bath with warm wash cloths. Pt states slight pain in ribs, expresses fall and fractures. Pt states he would like medication first. Nursing notified. Mental Status/Objective Patient Orientation: Person, Place, Situation ADL-Treatment Therapy Code Descriptions/Definitions Functional [place] Measure: 0=Not Assessed/NA 4=Minimal Assistance 1=Total Assistance 5=Supervision or Setup 2=Maximal Assistance 6=Modified [place] 3=Moderate Assistance 7=Complete IndependenceSCALE: Activities may be completed with or without assistive devices. 5-Oakfanbpme-hmwuvtd completes the activity by him/herself with no assistance from a helper. 5-Set-up or Clean-up Assistance-helper sets up or cleans up; patient completes activity. [place] assists only prior to or following the activity. 4-Supervision or Touching Assistance-helper provides verbal cues and/or touching/steadying and/or contact guard assistance as patient completes activity. Assistance may be provided throughout the activity or intermittently. 3-Partial/Moderate Assistance-helper does LESS THAN HALF the effort. [place] lifts, holds or supports trunk or limbs, but provides less than half the effort. 2-Substantial/Maximal Assistance-helper does MORE THAN HALF the effort. [place] lifts or holds trunk or limbs and provides more than half the effort. 6-Ywmcmxics-gnebkb does ALL the effort. Patient does none of the effort to complete the activity. Or, the assistance of 2 or more helpers is required for the patient to complete the activity. If activity was not attempted, code reason: 7-Patient Refused. 9-Not Applicable-not attempted and the patient did not perform the activity before the current illness, exacerbation or injury. 10-Not Attempted due to Environmental Limitations-(lack of equipment, weather restraints, etc.). 88-Not Attempted due to Medical Conditions or Safety Concerns. Eating (QC): 6 Bathing Location: L Arm, R Arm, L Upper Leg, R Upper Leg, Chest, Abdomen, Perineal Area Shower/Bathe Self (QC): 3 (Pt does not wash feet nor bottom. But, per clinical judgment will require CGA for bottom care and max A feet) Upper Body Dressing (QC): 7 (denies, stating his gown is clean) On/Off Footwear: 2 (max A. Pt states unable to complete due to pain.) Toileting Hygiene (QC): 7 Other Treatment Pt agrees to tx, agrees to sponge bath. OT asks what he wants to use, options of cloths or bath wipes, pt states, "It doesn't matter." OT warms water up and brings all items in. Pt expresses, "Now what are we doing? I just took a sponge bath last night." Pt is educated on what he agreed to. Pt states, "I gave myself a sponge bath last night with the wipes, I'll just use the wipes." Pt then exp resses his gown is clean, denies new gown. Pt bed mob supine to EOB with increased time/ increased pain. Pt completes sponge bath EOB, denies standing or rolling for bottom care. Pt completes all reachable regions, requests OT assists with footwear. Pt sit to supine with increased time/ pain. Pt is educated on continuation of deep breathing to decrease PNA chances/ sitting upright. Pt's socks doffed/ donned max A. Pt reaches HOB with increased time, bed angled down and pt able to reach to bed rails, cues for use of LEs. Once reached HOB pt's HOB elevated to slight sitting position. Pt denies other needs. Call light in reach. Education OT Patient Education: Correct positioning, Exercise program, Home exercise program, Progress toward Goal/Update tx plan, Purpose of tx/functional activities, Rehab process Teaching Recipient: Patient Teaching Methods: Demonstration, Discussion Response to Teaching: Verbalize Understanding, Return Demonstration, Reinforcement Needed OT Short Term Goals Short Term Goals Eatin Oral hygiene: 5 Toileting hygiene: 2 Shower/bathe self: 2 Upper body dressin Lower body dressin Putting on/taking off footwear: 3 OT Golf Range Attendant Goals Golf Range Attendant Goals Time Frame: Oct 29, 2020 Eating (QC): 6 Oral Hygiene (QC): 6 Toileting Hygiene (QC): 4 Shower/Bathe Self (QC): 4 Upper Body Dressing (QC): 6 Lower Body Dressing (QC): 3 On/Off Footwear (QC): 4 Additional Goals: 1-Demonstrate ADL Tasks, 2-Verbalize Understanding, 3- ImproveStrength/Danna 1=Demonstrate adherence to instructed precautions during ADL tasks. 2=Patient will verbalize/demonstrate understanding of assistive devices/modifications for ADL. 3=Patient will improve strength/tolerance for activity to enable patient to perform ADL's. OT Education/Plan Problem List/Assessment Assessment: Decreased Activ Tolerance, Decreased UE Strength, Dependent Transfers, Impaired Bed Mobility, Impaired Funct Balance, Impaired I ADL's, Impaired Self-Care Skills Discharge Recommendations Plan/Recommendations: Continue POC Therapy Discharge Recommendati: Post Acute OT Treatment Plan/Plan of Care Treatment,Training & Education: Yes Patient would benefit from OT for education, treatment and training to promote independence in ADL's, mobility, safety and/or upper extremity function for ADL's. Plan of Care: ADL Retraining, Caregiver Training, Functional Mobility, UE Funct Exercise/Act, UE Neuromus Re-Ed/Coord Treatment Duration: Oct 29, 2020 Frequency: 5 times per week Estimated Hrs Per Day: .25 hour per day Agreement: Yes Rehab Potential: Fair Time/GCodes Start Time: 07:50 Stop Time: 08:04 Total Time Billed (hr/min): 14 Billed Treatment Time 1, ADL (14) KARTHIK SANDOVAL OTR Oct 29, 2020 09:21
[2020-10-29] MEDS ORDERED: KETOROLAC 30 MG/ML VIAL IVP PRN (09:45)
--- NOTE | 2020-10-29 09:48 | Physical Therapy Daily Note ---
PT Daily Note-Current Subjective Patient is alert and oriented on this date. Remembers this PT's name. Agrees to PT. Mental Status Patient Orientation: Normal For Age Attachments: Oxygen Transfers SCALE: Activities may be completed with or without assistive devices. 4-Hwjstncrvi-xawaacr completes the activity by him/herself with no assistance from a helper. 5-Set-up or Clean-up Assistance-helper sets up or cleans up; patient completes activity. [place] assists only prior to or following the activity. 4-Supervision or Touching Assistance-helper provides verbal cues and/or touching/steadying and/or contact guard assistance as patient completes activity. Assistance may be provided throughout the activity or intermittently. 3-Partial/Moderate Assistance-helper does LESS THAN HALF the effort. [place] lifts, holds or supports trunk or limbs, but provides less than half the effort. 2-Substantial/Maximal Assistance-helper does MORE THAN HALF the effort. [place] lifts or holds trunk or limbs and provides more than half the effort. 3-Keiisgufx-cspokz does ALL the effort. Patient does none of the effort to complete the activity. Or, the assistance of 2 or more helpers is required for the patient to complete the activity. If activity was not attempted, code reason: 7-Patient Refused. 9-Not Applicable-not attempted and the patient did not perform the activity before the current illness, exacerbation or injury. 10-Not Attempted due to Environmental Limitations-(lack of equipment, weather restraints, etc.). 88-Not Attempted due to Medical Conditions or Safety Concerns. Lying to Sitting/Side of Bed(Q: 6 Sit to Stand (QC): 5 Chair/Ogi-jt-Wvfnc Xfer(QC): 5 Gait Training Does the Patient Walk?: Yes Distance: 600' Walk 10 feet (QC): 5 Walk 50 ft with 2 Turns(QC): 5 Walk 150 ft (QC): 5 Gait Assistive Device: FWW safe and functional with no deviation/Good balance with FWW use Exercises Seated Therapy Exercises: Ankle pumps, Long arc quads, Chair press-ups, Hip flexion, Hip abd/add, Glut set Seated Reps: 15 Assessment SAO2 on 3L O2 NC 97% with activity. Patient much improved from yesterday. Continue to address functional mobility and strengthening to ensure safe return to home. PT Chcf Goals Chcf Goals PT Chcf Goals Time Frame: Nov 02, 2020 Roll Left & Right (QC): 6 Sit to Lying (QC): 6 Lying-Sitting on Side/Bed(QC): 6 Sit to Stand (QC): 6 Chair/Ame-bt-Vqvzh Xfer(QC): 6 Toilet Transfer (QC): 6 Car Transfer (QC): 6 Does the Patient Walk: Yes Walk 10 feet (QC): 6 Walk 50ft with 2 Turns (QC): 6 Walk 150 ft (QC): 6 PT Plan Treatment/Plan Treatment Plan: Continue Plan of Care Treatment Plan: Bed Mobility, Education, Functional Activity Danna, Functional Strength, Gait, Safety, Therapeutic Exercise, Transfers Treatment Duration: Nov 02, 2020 Frequency: 6 times per week Estimated Hrs Per Day: .25 hour per day Patient and/or Family Agrees t: Yes Time/GCodes Time In: 835 Time Out: 858 Total Billed Treatment Time: 23 Total Billed Treatment 1 visit FA 13 min EX 10 min NANCY ALLEN PT Oct 29, 2020 09:48
--- NOTE | 2020-10-29 10:33 | NUR ---
PT DID NOT REQUIRE O2 DURING THE WALK STUDY. PT SPO2 STAYED ABOVE 95% THE WHOLE TIME. Addendum: 10/29/20 at 1033 by CLAUDIA NEGRON RT Amended: Links added.
--- NOTE | 2020-10-29 11:44 | NUR ---
CM/SS: Telephone call from daughter Carolina - [phone] - she would like to see pt have counseling services at the time of discharge. She also report that pt has been going to but has not been as consistent with that. She would like the appointments in [place]. She just wants to also clarify if pt will be leaving today. This worker will follow up.
--- NOTE | 2020-10-29 11:48 | NUR ---
CM/SS: Visit with pt as per plan for discharge - pt is eager to go home. Pt is open to outpatient counseling appointment. Barrier to setting up appt is there is not insurance card on file. Both pt and family indicate he has insurance. This worker has requested the copy of the insurance card. Family is to be checking into this. [facility] is contacted about an appt. [phone]. They can schedule an intake once they have the insurance information. They can also do a sliding fee scale if needed. Pt is able to talk with them and he is open to going and talking with someone. Ragini will call and get the insurance info once discharged from the hospital. Pt seems pleased with the appointment information. Pt does indicates that he does have a ride home. This worker will follow up.
[2020-10-29] MEDS ORDERED: RT-ALBUINH IH (11:50)
[2020-10-29] MEDS ORDERED: PANT40TA52 PO (11:50)
[2020-10-29] MEDS ORDERED: SPIR25TA5 PO (11:50)
[2020-10-29] MEDS ORDERED: RIFA550T PO (11:50)
[2020-10-29 12:00] VITALS: BP 104/74
--- NOTE | 2020-10-29 14:49 | NUR ---
CM/SS: Copy of insurance card received - it is faxed to [facility] in [place] as well as [place] [facility].
--- NOTE | 2020-10-29 14:51 | NUR ---
CM/SS: Pt is reassured that daughters will be able to pick him up this evening. This worker calls daughter Angela and she and her sister can leaf size picker pt this evening. They will be here around 6pm. He will not need a voucher for a cab to take him to [place]. Pt expresses appreciation for this worker help in getting his service set up when he leaves the hospital.
[2020-10-29 16:00] VITALS: BP 108/78
--- NOTE | 2020-10-29 18:08 | Discharge Summary ---
Discharge Summary Hospital Course Problems/Diagnosis: (1) Altered mental status Status: Resolved Resolution Date/Time: 10/28/20 @ 18:56 Assessment & Plan: - Sepsis vs EtOH withdraw vs Ammonia, continue to monitor 10/17: Metabolic encephalopathy, Dr Figueroa consulted, appreciated recommendations, started on Lactulose and Xifaxan today 10/18: Intubated and sedated, labs improving 2/ s/p mechanical ventilation and extubation, doing well and oriented appropriately today. CT head on admit without significant acute findings. Qualifiers: Qualified Codes: R41.82 - Altered mental status, unspecified (2) Alcohol withdrawal Status: Acute Assessment & Plan: -EtOH negative on admit 10/15, outside of window for d angerous withdrawal. Was on CIWA, banana bag previously. Still has ativan ordered prn anxiety, will not plan to continue on d/c. SW consulted for post- discharge rehab planning. Qualifiers: Qualified Codes: F10.231 - Alcohol dependence with withdrawal delirium (3) Normocytic anemia Status: Acute Assessment & Plan: Worsening, was normal a few months ago. Check iron studies and peripheral smear, stool occult blood- pending at d/c (4) Acute renal failure Status: Resolved Resolution Date/Time: 10/18/20 @ 16:06 Assessment & Plan: - Likely 2/2 to profound dehydration, resolved. (5) Elevated liver enzymes Status: Chronic Assessment & Plan: Improved since admit, suspect initially acute alcoholic hepatitis. Now stable at baseline with mild elevation. Hep panel negative 05/2020. (6) Hypokalemia Status: Resolved Resolution Date/Time: 10/28/20 @ 19:02 Assessment & Plan: - Replace and repeat BMP (7) Hyponatremia Status: Acute Assessment & Plan: Likely hypovolemic and alcohol related. Improved and then recurred, mild and improving. (8) Acute respiratory failure Status: Resolved Resolution Date/Time: 10/29/20 @ 21:04 Assessment & Plan: s/p mechanical ventilation, currently on 6 lpm supplemental oxygen, wean as tolerated. Did not require oxygen even with exercise on day of d/c. Qualifiers: Qualified Codes: J96.01 - Acute respiratory failure with hypoxia (9) Esophageal thickening Status: Acute Assessment & Plan: Noted on CT done 05/2020 ER visit, needs to have endoscopy done outpatient for further work-up. (10) Left lower lobe pneumonia Status: Acute Assessment & Plan: Treated with zosyn 10/16-10/27 (11) Multiple rib fractures Status: Acute Assessment & Plan: Acute/subacute right 8-12, no significant issues currently Hospital Course Date of Admission: Oct 15, 2020 at 20:50 Admission Diagnosis : Family Physician/Provider: [place] Date of Discharge: 10/29/20 Discharge Diagnosis: See problem list Hospital Course: See problem list Labs and Pending Lab Test: Laboratory Tests 10/29/20 05:06: White Blood Count 7.8, Red Blood Count 3.20L, Hemoglobin 9.1L, Hematocrit 28L, Mean Corpuscular Volume 87, Mean Corpuscular Hemoglobin 28, Mean Corpuscular Hemoglobin Concent 33, Red Cell Distribution Width 17.2H, Platelet Count 665H, Mean Platelet Volume 9.0, Immature Granulocyte % (Auto) 1, Neutrophils (%) (Auto) 56, Lymphocytes (%) (Auto) 30, Monocytes (%) (Auto) 8, Eosinophils (%) (Auto) 4, Basophils (%) (Auto) 1, Neutrophils # (Auto) 4.3, Lymphocytes # (Auto) 2.3, Monocytes # (Auto) 0.6, Eosinophils # (Auto) 0.3, Basophils # (Auto) 0.1, Immature Granulocyte # (Auto) 0.1, Neutrophils % (Manual) 62, Lymphocytes % (Manual) 22, Monocytes % (Manual) 6, Eosinophils % (Manual) 3, Basophils % (Manual) 2, Metamyelocytes % 1, Band Neutrophils 1, Atypical Lymphocytes 3, Blast Cells , Percent Immature Platelet Fraction 1.2, Anisocytosis SLIGHT, Microcytosis SLIGHT, Macrocytosis SLIGHT, Absolute Reticulocyte Count 92H, Percent Reticulocyte Count 2.86H, Iron Level [Pending], Total Iron Binding Capacity [Pending], Unsaturated Iron Binding Capacity [Pending], Transferrin % Saturation [Pending], Ferritin [Pending] Microbiology 10/21/20 Blood Culture - Final, Complete No growth 10/21/20 Gram Stain - Final, Complete 10/21/20 Sputum Culture - Final, Complete Usual upper respiratory oziel 10/15/20 Urine Culture - Final, Complete NO GROWTH Home Meds Active Proair Hfa (Albuterol Sulfate) 1 Puff Puff 2 Puff IH Q4H PRN 1 PUFF = 90 MCG Pantoprazole Sodium 40 Mg Tablet.dr 40 Mg PO DAILY Spironolactone 25 Mg Tablet 25 Mg PO DAILY Xifaxan (Rifaximin) 550 Mg Tablet 550 Mg PO BID Assessment/Pt DC Instructions Follow up as noted in d/c info Discharge Diet: No Restrictions Activity as Tolerated: Yes Discharge Physical Examination Allergies: Coded Allergies: No Known Drug Allergies (Unverified , 10/16/20) General Appearance: No Apparent Distress, WD/WN Respiratory: Lungs Clear Cardiovascular: Regular Rate, Rhythm, No Murmur Extremity: No Pedal Edema Skin: Normal Color, Warm/Dry Neurologic/Psychiatric: Alert, Normal Mood/Affect SHY DRAKE MD Oct 29, 2020 18:08
--- NOTE | 2020-10-30 12:35 | Physician Query Clarification ---
PQ-Intro New Diagnosis Admission/Discharge Admission Date: Oct 15, 2020 at 20:50 Discharge Date: Oct 29, 2020 at 18:20 Dr. Haro, The medical record reflects the following clinical scenario: History/Risk Factors: alcoholism w/ withdrawal, metabolic encephalopathy, pneumonia, acute on chronic respiratory failure w/hypoxia, acute renal failure Clinical Findings: T 35,4, P 92, R 30, BP 93/48, WBC 6.7, lactic acid 7.69 Treatment: IV Piperacillin Question: What condition best reflects the above clinical scenario? Please document a response in the Progress Noter or Discharge Summary. 1. Sepsis 2. No sepsis 3. Other, with explanation of the clinical findings. 4. Clinically undetermined, no explanation for the clinical findings. PHYSICIAN RESPONSE What condition reflects above: Other, explanation/clinical finding (severe sepsis with acute renal insufficiency and markedly elevated lactic acid secondary to pneumonia) Please remember a lack of response to the above will prompt a phone page by [facility] /Coding staff. In responding to this query, please exercise your independent professional judgment. The purpose of this communication is to more accurately reflect the complexity of your patients condition. The fact that a question is asked does not imply that any particular answer is desired or expected. Thank you for your timely response to this clarification. Requestors name: [email or web address] THIS PHYSICIAN QUERY FORM IS A PERMANENT PART OF THE MEDICAL RECORD AL EDWARDS Oct 30, 2020 12:35 SHY HARO MD Oct 31, 2020 08:37
== END 2020-10-29 18:20 | disposition home or self-care (01) | DRG 871 ==
LOC: EDUNIT# 12:16 → ER FS 12:17 → EEVIPCON 12:17 → ER FS 20:06 → CSD 20:50 → EEVIPCON 20:50 → ICU 10-17 06:44 → 4TH 10-25 08:53
PROVIDERS: ADMIT Family Medicine; ATTEND Family Medicine
PROC: 5A1945Z Respiratory Ventilation, 24-96 Consecutive Hours (ICD-10-PCS; principal; 2020-10-17)
PROC: 0BH17EZ Insertion of Endotracheal Airway into Trachea, Via Natural or Artificial Opening (ICD-10-PCS; 2020-10-17)
DX: A41.9 Sepsis, unspecified organism (principal); J96.21 Acute and chronic respiratory failure with hypoxia; G93.41 Metabolic encephalopathy; J18.9 Pneumonia, unspecified organism; F10.231 Alcohol dependence with withdrawal delirium; S22.41XA Multiple fractures of ribs, right side, initial encounter for closed fracture; E87.1 Hypo-osmolality and hyponatremia; N17.9 Acute kidney failure, unspecified; N39.0 Urinary tract infection, site not specified; J81.1 Chronic pulmonary edema; R65.20 Severe sepsis without septic shock; Z20.822 Contact with and (suspected) exposure to COVID-19; E86.0 Dehydration; D64.9 Anemia, unspecified; E87.6 Hypokalemia; F41.9 Anxiety disorder, unspecified; F32.9 Major depressive disorder, single episode, unspecified; M43.6 Torticollis; Z87.891 Personal history of nicotine dependence; Z79.82 Long term (current) use of aspirin
CPT/HCPCS: 36415; 70450; 71045; 71275; 80048; 80053; 80306; 80320; 81000; 82140; 82274; 82728; 82805; 82962; 83540; 83605; 83690; 83735; 83880; 84100; 84145; 84478; 84484; 85007; 85025; 85027; 85045; 85055; 85610; 85730; 87040; 87070; 87081; 87088; 87205; 87635; 87804; 94002; 94003; 94640; 94664; 94760; 94761; 94799; 96361; 96374; 96376

== ENCOUNTER → 2020-12-19 | Outpatient (CLI) | payer OTHER ==
[~2020-12-19] MED LIST changes: +PANT40TA52 PO; +RIFA550T PO; +RT-ALBUINH IH; +SPIR25TA5 PO
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
== END ==
LOC: RAD FS 08:46
PROVIDERS: ATTEND Nurse Practitioner Family
DX: M89.8X1 Other specified disorders of bone, shoulder (principal)
CPT/HCPCS: 73000

== ENCOUNTER 2020-12-30 05:41 | Outpatient (RCR) | payer OTHER ==
[~2020-12-30] VITALS: Ht 182.9 cm; Wt 91.5 kg
== END 2020-12-31 09:52 | disposition home or self-care (01) ==
LOC: PREOP 05:41
PROVIDERS: ATTEND Surgery
DX: Z01.812 Encounter for preprocedural laboratory examination (principal); Z12.11 Encounter for screening for malignant neoplasm of colon; K22.8 Other specified diseases of esophagus

== ENCOUNTER → 2021-01-03 | Outpatient (CLI) | payer OTHER ==
[~2021-01-03] MED LIST changes: +ESCI20TA PO; +SUCR1TAB36 PO
== END ==
LOC: LAB FS 10:00
PROVIDERS: ATTEND Surgery
DX: Z01.812 Encounter for preprocedural laboratory examination (principal); K22.8 Other specified diseases of esophagus; Z20.822 Contact with and (suspected) exposure to COVID-19
CPT/HCPCS: 87635

== ENCOUNTER 2021-01-06 07:29 | Day surgery (SDC) | payer OTHER ==
[2021-01-06] VITALS (8 sets, daily range): BP systolic 100–123; BP diastolic 55–89
[~2021-01-06 07:29] MED LIST changes: -ESCI20TA PO; -SUCR1TAB36 PO
[2021-01-06] MEDS ORDERED: LACTATED RINGERS 1,000 ML IV ONE (07:36)
[2021-01-06] MEDS ORDERED: LACTATED RINGERS 1,000 ML IV STA (07:39)
[2021-01-06] MEDS ORDERED: MIDAZOLAM 2 MG/2 ML (VERSED) VIAL ONE (07:42)
[2021-01-06] MEDS ORDERED: PROPOFOL INJECTION 50 ML IV ONE (07:42)
[2021-01-06] MEDS ORDERED: HURRICAINE EXT TUBE (BENZOCAINE) XX PRN (07:45)
[2021-01-06] MEDS ORDERED: ESCI20TA PO (07:55)
--- NOTE | 2021-01-06 09:12 | Progress Note-Post Operative ---
Post-Operative Progess Note Surgeon (s)/Waste Disposal Plant Operator (s) Surgeon IBRAHIMA ISAAC DO Waste Disposal Plant Operator: none Pre-Operative Diagnosis Thickened Esophagus Post-Operative Diagnosis Duodenitis Gastritis Hiatal Hernia Esophageal ulcer Procedure & Operative Findings Date of Procedure 01/06/21 Procedure Performed/Findings EGD with bx Anesthesia Type IV sedation by EQUINE BREEDER Estimated Blood Loss Estimated blood loss (mL): scant Specimens/Packing Specimens Removed duodenal bx antral bx body of stomach bx GE jxn bx Esophageal bx IBRAHIMA ISAAC DO Jan 06, 2021 09:12
[2021-01-06] MEDS ORDERED: SUCR1TAB36 PO (09:13)
--- NOTE | 2021-01-06 09:13 | Endoscopy Discharge Instruct ---
Endo Procedure/Findings Findings 1.: Gastritis 2.: Velez's Esophagus, Other Findings (Esophageal ulcer) 3.: Hiatal Hernia 4.: Duodenal Ulcer Discharge Instructions - Activity: You might feel a little sleepy until tomorrow. This is due to the medicine you received to relax you. Until tomorrow, you should: NOT drive a car, operate machinery or power tools. NOT drink any alcoholic beverages. NOT make any important decisions or sign importortant papers. Do not return to work until tomorrow, unless otherwise instructed. Resume previous activities tomorrow. Diet: Start by taking liquids. If you tolerate liquids, advance to solid food. 1.: EGD in 6-8 weeks Notify Physician - If you experience excessive bleeding, unusual abdominal pain, fever, or chest pain, contact your doctor immediately. IBRAHIMA ISAAC DO Jan 06, 2021 09:13
--- NOTE | 2021-01-06 12:44 | Anesthesia-General Post-Op ---
MAC Patient Condition Mental Status/LOC: Same as Preop Cardiovascular: Satisfactory Nausea/Vomiting: Absent Respiratory: Satisfactory Pain: Controlled Complications: Absent Post Op Complications Complications None Follow Up Care/Instructions Patient Instructions None needed. Anesthesiology Discharge Order Discharge Order Patient is doing well, no complaints, stable vital signs, no apparent adverse anesthesia problems. No complications reported per nursing. VICKI MARTINEZ CRNA Jan 06, 2021 12:44
--- NOTE | 2021-01-07 05:07 | OPERATIVE REPORT ---
DATE OF SERVICE: PREOPERATIVE DIAGNOSIS: Thickening of esophagus on CT. POSTOPERATIVE DIAGNOSES: Duodenitis, gastritis, hiatal hernia and esophageal ulcer. PROCEDURE: EGD with biopsy. SURGEON: Artis Martinez DO PIG HANDLER: None. ANESTHESIA: IV sedation by the MACHINE FILLER SERVICER. SPECIMEN: Duodenal biopsy, antral biopsy, body of stomach biopsy, GE junction biopsy and esophageal biopsy x2. BLOOD LOSS: Scant. FLUIDS: Per anesthesia. POSTOPERATIVE CONDITION: Stable. INDICATION FOR PROCEDURE: The patient is a 60-year-old male who had a CT done that showed some thickening of the esophagus and needed an EGD. FINDINGS: The patient had duodenitis, gastritis, hiatal hernia and a large ulceration in his esophagus, the distal one third. PROCEDURE NOTE: After informed consent was obtained, the patient was brought to the endoscopy suite, placed in bed in left lateral decubitus position. He was administered IV sedation by the MACHINE FILLER SERVICER who then monitored his vitals the entire time, heart rate, blood pressure and pulse ox and scope was inserted down the mouth through the esophagus. On the way down, the esophagus noted some ulceration, looked like it was mostly healed, but still had scarring. Pushed through past this into the antrum, saw some gastritis, took a picture, pushed into the duodenum. Duodenum had some whitish stain of the villi and then in the second and third portion, but when I pulled back into the first portion, saw what looked like an ulcer or duodenitis, took a biopsy of this. Pulled back and did a biopsy of the antrum. Retroflexed the scope, saw hiatal hernia, took a picture and then did a biopsy of the body of stomach, pulled the scope into the GE junction, did a biopsy of the GE junction and then pulled the scope up to the esophageal ulcer and did two biopsies here as well took some pictures. Suctioned all the air out of stomach and then pulled the scope up the esophagus and out the mouth. The patient tolerated the procedure, recovered in endoscopy suite. Job ID: [id number] DocumentID: [id number] Dictated Date: 01/06/2021 21:44:01 Staff Anesthetist Date: 01/07/2021 05:06:42 Dictated By: ARTIS MARTINEZ DO
== END 2021-01-06 10:00 | disposition home or self-care (01) ==
LOC: ENDO 07:29
PROVIDERS: ATTEND Surgery
DX: K22.8 Other specified diseases of esophagus (principal); K22.10 Ulcer of esophagus without bleeding; K29.50 Unspecified chronic gastritis without bleeding; K44.9 Diaphragmatic hernia without obstruction or gangrene; K72.90 Hepatic failure, unspecified without coma; J30.9 Allergic rhinitis, unspecified; F32.9 Major depressive disorder, single episode, unspecified; F41.9 Anxiety disorder, unspecified; Z87.891 Personal history of nicotine dependence; Z20.822 Contact with and (suspected) exposure to COVID-19; Z79.899 Other long term (current) drug therapy

== ENCOUNTER 2021-03-09 08:52 | Inpatient (IN) | payer OTHER ==
[~2021-03-09] VITALS: Ht 185 cm; Wt 94.2 kg
[~2021-03-09 08:52] MED LIST changes: +ESCI20TA PO; +SUCR1TAB36 PO
--- NOTE | 2021-03-09 09:12 | ED Head Injury ---
General Chief Complaint: Trauma-Non Activation Stated Complaint: FALL - HEAD INJ BRUISED ALL OVER BODY History of Present Illness Date Seen by Provider: Mar 09, 2021 Time Seen by Provider: 09:00 Initial Comments 60-year-old male presents following a fall. Patient had a fall at some point over the last couple days. Unknown exactly when the fall happened or what he hit. Patient has an approximate 10 cm laceration on his posterior scalp with significant amount of blood. Patient's known alcoholic and has been actively drinking. Patient is unsure what his head on. Patient does not want any work- up or evaluation done. Patient was brought in by his family and is not happy that he is here. Patient reports his last drink was about an hour ago. Patient is on medication for alcohol induced liver medication but yet continues to drink. Patient has had 2 previous inpatient rehabilitation stays. Allergies and Home Medications Allergies Coded Allergies: No Known Drug Allergies (Unverified , 10/16/20) Home Medications Escitalopram Oxalate 20 Mg Tablet, 20 MG PO DAILY, (Reported) Pantoprazole Sodium 40 Mg Tablet.dr, 40 MG PO DAILY Prescribed by: SHY DRAKE on 10/29/20 1150 Rifaximin 550 Mg Tablet, 550 MG PO BID Prescribed by: SHY DRAKE on 10/29/20 1150 Spironolactone 25 Mg Tablet, 25 MG PO DAILY Prescribed by: SHY DRAKE on 10/29/20 1150 Sucralfate 1 Gm Tablet, 1 GM PO ACHS Prescribed by: IBRAHIMA ISAAC on 01/06/21 0913 Patient Home Medication List Home Medication List Reviewed: Yes Review of Systems Review of Systems Constitutional: see HPI; No chills, No fever Cardiovascular: no symptoms reported Gastrointestinal: no symptoms reported Genitourinary: no symptoms reported Musculoskeletal: no symptoms reported Skin: see HPI Past Pqxqtdr-Jbonpn-Epyrna Hx Patient Social History Alcohol Beverage of Choice: Beer, Wine, Other Drug of Choice: marijuana Type Used: Cigarettes Former Smoker, Quit: May 04, 2018 2nd Hand Smoke Exposure: No Recent Hopitalizations: Yes Immunizations Up To Date Tetanus Booster (TDap): Less than 5yrs Seasonal Allergies Seasonal Allergies: No Past Medical History Surgeries: Yes (INGUINAL HERNIA REPAIR;BILAT CLAVICLE FX/ORIF;C-SPINE FX/FUSION AGE 17) Abdominal, Orthopedic Respiratory: No Currently Using CPAP: No Currently Using BIPAP: No Cardiac: No Neurological: Yes (HEPATIC ENCEPHALOPATHY) Sexually Transmitted Disease: No HIV/AIDS: No Genitourinary: No Gastrointestinal: Yes (S/P INGUINAL HERNIA REPAIR;HEPATIC ENCEPHALOPATHY) Abdominal Hernia, Liver Disease/Jaundice Musculoskeletal: Yes (C-SPINE FRACTURE /ORIF AGE 17; BILAT CLAVICLE FX/ORIF) Fractures Endocrine: No HEENT: No Loss of Vision: Denies Hearing Impairment: Denies Cancer: No Psychosocial: Yes (SUICIDAL IDEATION, ALCOHOLISM) Anxiety, Depression Integumentary: No Blood Disorders: No Adverse Reaction/Blood Tranf: No Family Medical History Patient reports no known family medical history. Hypertension Physical Exam Vital Signs Vital Signs - First Documented 03/09/21 08:58 Temp 36.0 Pulse 91 Resp 26 B/P (MAP) 120/64 (82) Pulse Ox 95 O2 Delivery Room Air Capillary Refill : Height, Weight, BMI Height: 6'1.00" Weight: 188lbs. 0.0oz. 85.152628er; 27.35 BMI Method:Stated General Appearance: other (Mildly intoxicated) Cardiovascular: normal peripheral pulses, regular rate, rhythm Respiratory: lungs clear, normal breath sounds Gastrointestinal: non tender, soft Extremities: non-tender, normal inspection Psychiatric: other (Intoxicated but alert and orientated) Skin: jaundice, other (9 cm laceration on his posterior scalp with moderate amount of dried blood.) Procedures/Interventions Date of ETT Placement: Oct 17, 2020 Wound Location: Scalp Wound Length (cm): 9 Wound's Depth, Shape: stellate Betadine Prep?: Yes Staple Repair: Stapler 35W Number of Sutures: 5 Progress/Results/Core Measures Results/Orders Lab Results Laboratory Tests Test 03/09/21 09:20 03/09/21 10:35 03/09/21 11:10 Range/Units White Blood Count 13.2 H 4.3-11.0 10^3/uL Red Blood Count 4.36 4.35-5.85 10^6/uL Hemoglobin 12.8 L 13.3-17.7 G/DL Hematocrit 37 L 40-54 % Mean Corpuscular Volume 86 80-99 FL Mean Corpuscular Hemoglobin 29 25-34 PG Mean Corpuscular Hemoglobin Concent 34 32-36 G/DL Red Cell Distribution Width 15.9 H 10.0-14.5 % Platelet Count 221 130-400 10^3/uL Mean Platelet Volume 9.3 7.4-10.4 FL Immature Granulocyte % (Auto) 1 % Neutrophils (%) (Auto) 81 H 42-75 % Lymphocytes (%) (Auto) 13 12-44 % Monocytes (%) (Auto) 5 0-12 % Eosinophils (%) (Auto) 0 0-10 % Basophils (%) (Auto) 0 0-10 % Neutrophils # (Auto) 10.7 H 1.8-7.8 X 10^3 Lymphocytes # (Auto) 1.7 1.0-4.0 X 10^3 Monocytes # (Auto) 0.6 0.0-1.0 X 10^3 Eosinophils # (Auto) 0.0 0.0-0.3 10^3/uL Basophils # (Auto) 0.0 0.0-0.1 10^3/uL Immature Granulocyte # (Auto) 0.1 0.0-0.1 10^3/uL Sodium Level 137 135-145 MMOL/L Potassium Level 3.4 L 3.6-5.0 MMOL/L Chloride Level 88 L 98-107 MMOL/L Carbon Dioxide Level 15 L 21-32 MMOL/L Anion Gap 34 H 5-14 MMOL/L Blood Urea Nitrogen 21 H 7-18 MG/DL Creatinine 1.05 0.60-1.30 MG/DL Estimat Glomerular Filtration Rate > 60 BUN/Creatinine Ratio 20 Glucose Level 170 H 70-105 MG/DL Calcium Level 7.2 L 8.5-10.1 MG/DL Corrected Calcium 7.5 L 8.5-10.1 MG/DL Magnesium Level 2.3 1.6-2.4 MG/DL Total Bilirubin 0.8 0.1-1.0 MG/DL Aspartate Amino Transf (AST/SGOT) 76 H 5-34 U/L Alanine Aminotransferase (ALT/SGPT) 75 H 0-55 U/L Alkaline Phosphatase 144 H 40-136 U/L Total Protein 6.5 6.4-8.2 GM/DL Albumin 3.6 3.2-4.5 GM/DL Serum Alcohol 376 *H <10 MG/DL Blood Gas Puncture Site UNK Blood Gas Patient Temperature 36.9 Arterial Blood pH 7.35 L 7.37-7.43 Arterial Blood Partial Pressure CO2 28 L 35-45 MMHG Arterial Blood Partial Pressure O2 69 L 79-93 MMHG Arterial Blood HCO3 16 *L 23-27 MMOL/L Arterial Blood Total CO2 16.4 L 21.0-31.0 MMOL/L Arterial Blood Oxygen Saturation 93 L 94-100 % Arterial Blood Base Excess -8.7 L -2.5-2.5 MMOL/L Gautam Test NEG Blood Gas Ventilator Setting NO Blood Gas Inspired Oxygen ROOM AIR Lactic Acid Level 4.81 *H 0.50-2.00 MMOL/L My Orders Orders - RICARDO,SHANTELLE L DO Alcohol (03/09/21 09:14) Cbc With Automated Diff (03/09/21 09:14) Comprehensive Metabolic Panel (03/09/21 09:14) Magnesium (03/09/21 09:14) Ed Iv/Invasive Line Start (03/09/21 09:27) Lactated Ringers (Lr 1000 Ml Iv Solution (03/09/21 09:30) Ct Head Wo (03/09/21 10:07) Lactic Acid Analyzer (03/09/21 10:07) Creatine Kinase (03/09/21 10:07) Arterial Blood Gas (03/09/21 10:07) Lorazepam Injection (Ativan Injection) (03/09/21 10:15) Arterial Blood Gas (03/09/21 10:35) Lactated Ringers (Lr 1000 Ml Iv Solution (03/09/21 11:01) Ketorolac Injection (Toradol Injection) (03/09/21 11:15) Medications Given in ED Current Medications Medications Dose Ordered Sig/Ernie Route Start Time Stop Time Status Last Admin Dose Admin Ketorolac Tromethamine 15 mg ONCE ONCE IVP 03/09/21 11:15 03/09/21 11:16 DC 03/09/21 11:11 15 MG Lactated Ringer's 1,000 ml @ 0 mls/hr Q0M ONCE IV 03/09/21 09:30 03/09/21 09:31 DC 03/09/21 09:35 1,000 MLS/HR Lorazepam 0.5 mg ONCE ONCE IVP 03/09/21 10:15 03/09/21 10:16 DC 03/09/21 10:36 0.5 MG Ondansetron HCl 4 mg STK-MED ONCE .ROUTE 03/09/21 10:00 03/09/21 10:03 DC 03/09/21 10:06 4 MG Vital Signs/I&O 03/09/21 03/09/21 08:58 11:40 Temp 36.0 Pulse 91 88 Resp 26 20 B/P (MAP) 120/64 (82) 108/79 Pulse Ox 95 94 O2 Delivery Room Air Room Air Progress Progress Note : Progress Note Patient initially refused any treatment., Patient then initially agreed to labs and IV fluid. As patient stayed longer he felt that he would like to be admitted for withdrawal syndromes. Discussed with him that in order to do that we would need to do a CT of his head and had a few other labs to ensure that there is no other injuries or any else going on. Patient agreed to these. Patient did multiple times threatened just leave the ER. I had multiple discussions with patient that we are more than happy to admit him and help him with his condition. However patient will need to agree that he wants treatment and that he is willing to undergo the testing that we will need to treat him properly. Patient voiced understanding. Patient reports he is very anxious he was given some Ativan to help calm him down. Patient is very belligerent and angry throughout the stay. Diagnostic Imaging Diagonstic Imaging: CT Plain Films/CT/US/NM/MRI: head Comments CT HEAD WO EXAMINATION: CT head without contrast. TECHNIQUE: Multiple contiguous axial images were obtained through the brain without the use of intravenous contrast. All CT scans use one or more of the following dose optimizing techniques: automated exposure control, MA and/or KvP adjustment based on patient size and exam type or iterative reconstruction. HISTORY: Fall onto head with pain, intoxication COMPARISON: CT head 10/15/2020 FINDINGS: Mild diffuse cerebral volume loss with proportional enlargement of the ventricles and sulci. No abnormal attenuation of brain parenchyma is present. No acute intracranial hemorrhage or abnormal extra-axial fluid collections are present. No hyperdense vessel. There is a left posterior superior scalp hematoma and laceration. The calvarium is intact. The mastoid air cells are clear. The visualized paranasal sinuses are clear. The orbits are normal. IMPRESSION: 1. No acute intracranial abnormality. 2. Left superior posterior scalp laceration and hematoma without underlying calvarial fracture. 3. Mild volume loss. Reviewed: Reviewed by Me, Reviewed/Discussed Departure Communication (Admissions) Dr. Sotomayor will accept patient if he agrees to CT head, lactic acid, CPK and ABG. Patient did agree. CT head was obtained that showed no acute intracranial process per Impression Primary Impression: Alcohol dependence with intoxication, unspecified Qualified Codes: F10.220 - Alcohol dependence with intoxication, uncomplicated Additional Impressions: Scalp laceration Qualified Codes: S01.01XA - Laceration without foreign body of scalp, initial encounter Head injury due to trauma Qualified Codes: S09.90XA - Unspecified injury of head, initial encounter Disposition: 30 STILL A PATIENT Condition: Stable Admissions Decision to Admit Reason: Admit from ER (General) Decision to Admit/Date: Mar 09, 2021 Time/Decision to Admit Time: 10:00 Departure-Patient Inst. Referrals: [facility] (PCP) Primary Care Physician AARON REEVES APRN (Family) Primary Care Physician SHANTELLE RICARDO DO Mar 09, 2021 09:12
[2021-03-09 09:28] LABS: BASOPHILS % (AUTO) 0 % (0-10); EOSINOPHILS % (AUTO) 0 % (0-10); HEMATOCRIT 37 % (40-54); HEMOGLOBIN 12.8 G/DL (13.3-17.7); LYMPHOCYTES # (AUTO) 1.7 X 10^3 (1.0-4.0); LYMPHOCYTES % (AUTO) 13 % (12-44); MEAN CORPUSCULAR HEMOGLOBIN 29 PG (25-34); MEAN CORPUSCULAR HGB CONC 34 G/DL (32-36); MEAN CORPUSCULAR VOLUME 86 FL (80-99); MEAN PLATELET VOLUME 9.3 FL (7.4-10.4); MONOCYTES # (AUTO) 0.6 X 10^3 (0.0-1.0); MONOCYTES % (AUTO) 5 % (0-12); NEUTROPHILS # (AUTO) 10.7 X 10^3 (1.8-7.8); NEUTROPHILS % (AUTO) 81 % (42-75); PLATELET COUNT 221 10^3/uL (130-400); WHITE BLOOD COUNT 13.2 10^3/uL (4.3-11.0)
[2021-03-09] MEDS ORDERED: LACTATED RINGERS 1,000 ML IV ONE (09:30)
[2021-03-09 09:45] LABS: ALANINE AMINOTRANSFERASE 75 U/L (0-55); ALBUMIN 3.6 GM/DL (3.2-4.5); ALKALINE PHOSPHATASE 144 U/L (40-136); BILIRUBIN,TOTAL 0.8 MG/DL (0.1-1.0); BUN/CREATININE RATIO 20; CALCIUM 7.2 MG/DL (8.5-10.1); CARBON DIOXIDE 15 MMOL/L (21-32); CHLORIDE 88 MMOL/L (98-107); CREATININE SERUM 1.05 MG/DL (0.60-1.30); GFR ESTIMATED > 60; GLUCOSE 170 MG/DL (70-105); MAGNESIUM 2.3 MG/DL (1.6-2.4); POTASSIUM 3.4 MMOL/L (3.6-5.0); SODIUM 137 MMOL/L (135-145); TOTAL PROTEIN 6.5 GM/DL (6.4-8.2)
[2021-03-09] MEDS ORDERED: ONDANSETRON 4 MG/2 ML (SDV) Z0FRAN ONE (10:00)
[2021-03-09] MEDS ORDERED: LORazepam INJ 2 MG/ML (ATIVAN) VIAL IVP ONE (10:15)
[2021-03-09] MEDS ORDERED: LORazepam INJ 2 MG/ML (ATIVAN) VIAL ONE (10:20)
[2021-03-09 10:42] LABS: ABG BASE EXCESS -8.7 MMOL/L (-2.5-2.5); ABG PCO2 28 MMHG (35-45); ABG PH 7.35 (7.37-7.43); ABG PO2 69 MMHG (79-93); ABG TCO2 16.4 MMOL/L (21.0-31.0)
[2021-03-09 10:43] LABS: ABG OXYGEN SATURATION 93 % (94-100); ALLENS TEST NEG; INSPIRED O2 ROOM AIR; PATIENT TEMP 36.9; VENTILATOR NO
--- NOTE | 2021-03-09 10:58 | Diagnostic Imaging Report ---
EXAMINATION: CT head without contrast. TECHNIQUE: Multiple contiguous axial images were obtained through the brain without the use of intravenous contrast. All CT scans use one or more of the following dose optimizing techniques: automated exposure control, MA and/or KvP adjustment based on patient size and exam type or iterative reconstruction. HISTORY: Fall onto head with pain, intoxication COMPARISON: CT head 10/15/2020 FINDINGS: Mild diffuse cerebral volume loss with proportional enlargement of the ventricles and sulci. No abnormal attenuation of brain parenchyma is present. No acute intracranial hemorrhage or abnormal extra-axial fluid collections are present. No hyperdense vessel. There is a left posterior superior scalp hematoma and laceration. The calvarium is intact. The mastoid air cells are clear. The visualized paranasal sinuses are clear. The orbits are normal. IMPRESSION: 1. No acute intracranial abnormality. 2. Left superior posterior scalp laceration and hematoma without underlying calvarial fracture. 3. Mild volume loss. Dictated by: Dictated on workstation # [id number]
[2021-03-09] MEDS ORDERED: LACTATED RINGERS 1,000 ML IV STA (11:01)
[2021-03-09] MEDS ORDERED: KETOROLAC 30 MG/ML VIAL IVP ONE (11:15)
[2021-03-09] MEDS ORDERED: fentaNYL INJ 100 MCG/2 ML AMP ONE (12:23)
[2021-03-09] MEDS ORDERED: ONDANSETRON 4 MG/2 ML (SDV) Z0FRAN IV PRN (12:45)
[2021-03-09] MEDS: LACTATED RINGERS 1,000 ML IV SCH ×2 (12:54→22:12)
[2021-03-09] MEDS: fentaNYL INJ 100 MCG/2 ML AMP IVP PRN ×3 (12:54→23:19)
[2021-03-09] MEDS ORDERED: ANTACID SUSP 30 ML UDC (MYLANTA) PO PRN (13:30)
[2021-03-09] MEDS ORDERED: 1/2 NS IV SOLUTION 1,000 ML IV PRN (13:30)
[2021-03-09] MEDS ORDERED: ONDANSETRON 4 MG (ZOFRAN) ORAL DISSOLVE TAB SL PRN (13:30)
[2021-03-09] MEDS ORDERED: SENNA W/DOCUSATE (SENOKOT S) TABLET PO PRN (13:30)
[2021-03-09] MEDS ORDERED: D5 1/2 NS 1000 ML IV SOLUTION 1,000 ML IV PRN (13:30)
[2021-03-09] MEDS: LORazepam INJ 2 MG/ML (ATIVAN) VIAL IV PRN ×5 (13:44→23:26)
[2021-03-09 20:05] LABS: BASOPHILS % (AUTO) 0 % (0-10); EOSINOPHILS % (AUTO) 0 % (0-10); HEMATOCRIT 29 % (40-54); HEMOGLOBIN 10.1 g/dL (13.3-17.7); LYMPHOCYTES # (AUTO) 1.4 10^3/uL (1.0-4.0); LYMPHOCYTES % (AUTO) 15 % (12-44); MEAN CORPUSCULAR HEMOGLOBIN 30 pg (25-34); MEAN CORPUSCULAR HGB CONC 35 g/dL (32-36); MEAN CORPUSCULAR VOLUME 85 fL (80-99); MEAN PLATELET VOLUME 9.8 fL (9.0-12.2); MONOCYTES # (AUTO) 0.5 10^3/uL (0.0-1.0); MONOCYTES % (AUTO) 6 % (0-12); NEUTROPHILS # (AUTO) 7.3 10^3/uL (1.8-7.8); NEUTROPHILS % (AUTO) 79 % (42-75); PLATELET COUNT 142 10^3/uL (130-400); WHITE BLOOD COUNT 9.2 10^3/uL (4.3-11.0)
[2021-03-09 20:24] LABS: ALANINE AMINOTRANSFERASE 65 U/L (0-55); ALKALINE PHOSPHATASE 108 U/L (40-136); BUN/CREATININE RATIO 23; CALCIUM 7.4 MG/DL (8.5-10.1); CARBON DIOXIDE 20 MMOL/L (21-32); CHLORIDE 97 MMOL/L (98-107); CREATININE SERUM 0.88 MG/DL (0.60-1.30); GFR ESTIMATED > 60; GLUCOSE 194 MG/DL (70-105); POTASSIUM 3.2 MMOL/L (3.6-5.0); SODIUM 136 MMOL/L (135-145); TOTAL PROTEIN 5.6 GM/DL (6.4-8.2)
[2021-03-10] MEDS: LORazepam INJ 2 MG/ML (ATIVAN) VIAL IV PRN ×12 (02:51→22:58)
[2021-03-10 04:11] LABS: HEMOGLOBIN 9.1 g/dL (13.3-17.7)
[2021-03-10 04:13] LABS: BASOPHILS % (AUTO) 1 % (0-10); EOSINOPHILS % (AUTO) 0 % (0-10); HEMATOCRIT 26 % (40-54); LYMPHOCYTES # (AUTO) 0.8 10^3/uL (1.0-4.0); LYMPHOCYTES % (AUTO) 19 % (12-44); MEAN CORPUSCULAR HEMOGLOBIN 30 pg (25-34); MEAN CORPUSCULAR HGB CONC 35 g/dL (32-36); MEAN CORPUSCULAR VOLUME 85 fL (80-99); MEAN PLATELET VOLUME 9.6 fL (9.0-12.2); MONOCYTES # (AUTO) 0.3 10^3/uL (0.0-1.0); MONOCYTES % (AUTO) 7 % (0-12); NEUTROPHILS # (AUTO) 3.2 10^3/uL (1.8-7.8); NEUTROPHILS % (AUTO) 73 % (42-75); PLATELET COUNT 125 10^3/uL (130-400); WHITE BLOOD COUNT 4.4 10^3/uL (4.3-11.0)
[2021-03-10] MEDS: fentaNYL INJ 100 MCG/2 ML AMP IVP PRN ×3 (04:15→13:23)
[2021-03-10 04:24] LABS: CHLORIDE 96 MMOL/L (98-107); POTASSIUM 3.3 MMOL/L (3.6-5.0); SODIUM 136 MMOL/L (135-145)
[2021-03-10 04:25] LABS: CALCIUM 7.6 MG/DL (8.5-10.1)
[2021-03-10 04:26] LABS: GLUCOSE 175 MG/DL (70-105)
[2021-03-10 04:27] LABS: CARBON DIOXIDE 27 MMOL/L (21-32)
[2021-03-10 04:29] LABS: PHOSPHORUS 1.1 MG/DL (2.3-4.7)
[2021-03-10 04:30] LABS: CREATININE SERUM 0.75 MG/DL (0.60-1.30); GFR ESTIMATED > 60
[2021-03-10 04:31] LABS: BUN/CREATININE RATIO 23
--- NOTE | 2021-03-10 06:33 | History & Physical-Hospitalist ---
History of Present Illness HPI/Chief Complaint CC: Alcohol withdrawal HPI: This is a 60yoWM who presented to the [facility] in alcohol withdrawal with a blood alcohol level of 436, Pt now is in alcohol withdrawal, he was acidotic, ABG was obtained, that was reviewed, IV fluids initiated because he was found down at home for a couple of days, he did have slight rhabdo with CPK of 930 so his lactic acid now is back to normal and he has received Ativan several times. Source: patient Exam Limitations: clinical condition (Alcohol withdrawal) Date Seen 03/10/21 Time Seen by a Provider: 09:30 Attending Physician Shabana Sotomayor DO [facility] Referring Physician Date of Admission Mar 09, 2021 at 12:12 Home Medications & Allergies Home Medications Reviewed patient Home Medication Reconciliation performed by pharmacy medication reconciliations orthotic technician and/or nursing. Patients Allergies have been reviewed. Allergies Allergies Coded Allergies No Known Drug Allergies (Unverified10/16/20) Past Bpkzlzx-Bammkn-Hdgdqw Hx Patient Social History Marrital Status: single Employed/Student: unemployed Tobacco Use?: No Smoking Status: Former Smoker Substance use?: No Alcohol Use?: Yes Alcohol type: Hard Liquor Alcohol Frequency: Daily Additional Alcohol Comments: 2- 5THS OF VODKA DAILY Pt feels they are or have been: No Immunizations Up To Date Tetanus Booster (TDap): Unknown Seasonal Allergies Seasonal Allergies: No Current Status Advance Directives: No Communicates: Verbally Primary Language: [place] Preferred Spoken Language: [place] Is interpretation needed?: No Implanted or Applied Medical D: None Past Medical History Surgeries: Abdominal, Orthopedic Currently Using CPAP: No Currently Using BIPAP: No Sexually Transmitted Disease: No HIV/AIDS: No Abdominal Hernia, Liver Disease/Jaundice Fractures Loss of Vision: Denies Hearing Impairment: Denies Anxiety, Depression Blood Disorders: No Adverse Reaction/Blood Tranf: No PMHx: Alcoholism SurgHx: Neck/back fracture surgery Family Medical History Patient reports no known family medical history. Hypertension Review of Systems Constitutional: see HPI Physical Exam Physical Exam Vital Signs Vital Signs - First Documented 03/09/21 03/10/21 08:58 00:50 Temp 36.0 Pulse 91 Resp 26 B/P (MAP) 120/64 (82) Pulse Ox 95 O2 Delivery Room Air O2 Flow Rate 2.00 Capillary Refill : Less Than 3 Seconds Height, Weight, BMI Height: 6'1.00" Weight: 188lbs. 0.0oz. 85.810136yw; 26.50 BMI Method:Stated General Appearance: Anxious, Chronically ill, Mild Distress Eyes: Right Eye Normal Inspection, Right Eye PERRL HEENT: PERRL/EOMI, Normal ENT Inspection, Pharynx Normal, Moist Mucous Membranes Neck: Full Range of Motion, Normal Inspection, Non Tender Respiratory: Chest Non Tender, Lungs Clear, Normal Breath Sounds, No Accessory Muscle Use, No Respiratory Distress Cardiovascular: Regular Rate, Rhythm, No Edema, No Gallop, No JVD, No Murmur, Normal Peripheral Pulses Gastrointestinal: Normal Bowel Sounds, No Organomegaly, No Pulsatile Mass, Non Tender, Soft Back: Normal Inspection, No CVA Tenderness, No Vertebral Tenderness Extremity: Normal Capillary Refill, Normal Inspection, Normal Range of Motion, Non Tender, No Calf Tenderness, No Pedal Edema Neurologic/Psychiatric: Alert, Oriented x3, No Motor/Sensory Deficits, Normal Mood/Affect Skin: Normal Color, Warm/Dry Lymphatic: No Adenopathy Results Results/Procedures Labs Laboratory Tests 03/09/21 09:20 03/09/21 19:53 03/10/21 03:47 Patient resulted labs reviewed. Assessment/Plan Admission Diagnosis Assessment: Alcohol withdrawal Alcoholic hepatitis Cirrhosis Plan: ICU care Severe alcohol withdrawal Prognosis poor long-term Admission Status: Inpatient Order (span 2 midnights) Reason for Inpatient Admission: Alcohol withdrawal Diagnosis/Problems Diagnosis/Problems (1) Alcohol withdrawal delirium Status: Acute SHABANA SOTOMAYOR DO Mar 10, 2021 06:33
[2021-03-10] MEDS: MAGNESIUM 1 GM/100 ML IVPB 100 ML IV SCH (06:47)
[2021-03-10] MEDS: POTASSIUM CL 10MEQ/50ML IVPB 50 ML IV SCH ×5 (06:47→09:52)
[2021-03-10] MEDS: KCL 20 MEQ TAB (K-DUR) PO SCH (06:48)
[2021-03-10] MEDS: LACTATED RINGERS 1,000 ML IV SCH (07:38)
--- NOTE | 2021-03-10 09:54 | Pulmonary Consultation ---
History of Present Illness History of Present Illness Date Seen by Provider: Mar 10, 2021 Time Seen by Provider: 09:53 Date of Admission Allergies and Home Medications Allergies Coded Allergies: No Known Drug Allergies (Unverified , 10/16/20) Home Medications Escitalopram Oxalate 20 Mg Tablet, 20 MG PO DAILY, (Reported) Pantoprazole Sodium 40 Mg Tablet.dr, 40 MG PO DAILY Prescribed by: SHY DRAKE on 10/29/20 1150 Rifaximin 550 Mg Tablet, 550 MG PO BID Prescribed by: SHY DRAKE on 10/29/20 1150 Spironolactone 25 Mg Tablet, 25 MG PO DAILY Prescribed by: SHY DRAKE on 10/29/20 1150 Sucralfate 1 Gm Tablet, 1 GM PO ACHS Prescribed by: IBRAHIMA ISAAC on 01/06/21 0913 Past Medical/Social/Family Hx Patient Social History Tobacco Use?: No Smoking Status: Former Smoker Substance use?: No Alcohol Use?: Yes Alcohol type: Hard Liquor Alcohol Frequency: Daily 2- 5THS OF VODKA DAILY Pt stated abuse/neglect: No Immunizations Up To Date Influenza Vaccine Up-to-Date: Yes; Up-to-Date Tetanus Booster (TDap): Unknown Current Status Advance Directives: No Communicates: Verbally Primary Language: Burmese Preferred Spoken Language: Burmese Is interpretation needed?: No Implanted or Applied Medical D: None Past Medical History PMHx: Alcoholism SurgHx: Neck/back fracture surgery Review of Systems Constitutional: see HPI Sepsis Event Evaluation Height, Weight, BMI Height: 6'1.00" Weight: 188lbs. 0.0oz. 85.785781qf; 26.50 BMI Method:Stated Exam Exam Patient acknowledged, consented, and participated in this virtual visit which was conducted using real time audio/video Vital Signs Date Time Temp Pulse Resp B/P (MAP) Pulse Ox O2 Delivery O2 Flow Rate FiO2 03/10/21 09:00 86 25 115/71 (86) 94 Nasal Cannula 3.00 03/10/21 08:00 86 33 94/77 (83) 96 Nasal Cannula 3.00 03/10/21 07:42 37.1 03/10/21 07:30 95 Room Air 03/10/21 07:00 92 37 99/75 (83) Nasal Cannula 3.00 03/10/21 06:42 108 03/10/21 06:41 Nasal Cannula 4.00 03/10/21 06:00 88 22 124/67 (86) Nasal Cannula 3.00 03/10/21 05:00 92 26 146/86 (110) 91 Nasal Cannula 3.00 03/10/21 04:12 37.4 03/10/21 04:00 94 Room Air 03/10/21 04:00 94 130/72 (81) 98 Nasal Cannula 3.00 03/10/21 03:00 105 32 155/83 (105) 90 Nasal Cannula 3.00 03/10/21 02:51 Nasal Cannula 3.00 03/10/21 02:00 138 16 118/82 (94) 93 Nasal Cannula 2.00 03/10/21 01:00 100 03/10/21 01:00 100 22 139/92 (108) 94 Nasal Cannula 2.00 03/10/21 00:50 105 36 91 Nasal Cannula 2.00 03/10/21 00:00 99 138/105 (116) 92 Room Air 03/09/21 23:35 94 Room Air 03/09/21 23:20 36.9 03/09/21 23:00 108 35 131/83 (99) 94 Room Air 03/09/21 22:12 111 33 113/70 (84) 93 Room Air 03/09/21 21:15 110 21 110/71 (84) 93 Room Air 03/09/21 21:00 106 14 85/66 (72) 94 Room Air 03/09/21 20:02 106 25 91/63 (72) 92 Room Air 03/09/21 20:00 99 Room Air 03/09/21 19:45 114 23 95/73 (80) 91 Room Air 03/09/21 19:30 112 20 102/75 (84) 94 Room Air 03/09/21 19:21 37.8 03/09/21 19:15 109 25 90/75 (80) Room Air 03/09/21 19:00 111 31 84/69 (74) 94 Room Air 03/09/21 19:00 111 03/09/21 18:00 104 22 100/68 (79) 94 Room Air 03/09/21 17:03 Room Air 03/09/21 17:00 108 23 100/70 (80) 92 Room Air 03/09/21 16:00 104 22 104/76 (85) 94 Room Air 03/09/21 15:56 37.2 03/09/21 15:00 104 22 95/53 (67) 94 Room Air 03/09/21 14:00 106 82/69 (73) 97 Room Air 03/09/21 13:00 94 26 101/60 (74) 98 Room Air 03/09/21 12:32 Room Air 03/09/21 12:32 98 03/09/21 12:30 97 26 105/57 (73) 98 Room Air 03/09/21 11:40 88 20 108/79 94 Room Air I & O 03/10/21 07:00 Intake Total 2090 ml Output Total 100 ml Balance 1990 ml Height & Weight Height: 6'1.00" Weight: 188lbs. 0.0oz. 85.361740jq; 26.50 BMI Method:Stated General Appearance: Anxious Capillary Refill: Less Than 3 Seconds Gastrointestinal: non tender, soft Results Lab Laboratory Tests 03/09/21 09:20 03/09/21 19:53 03/10/21 03:47 Assessment/Plan Assessment/Plan Available chart/ vitals / labs / Images reviewed Patient's information available about PMH, Shx, Fhx allergy reviewed in EMR. ROS as per chart and RN Patient admitted 03/09/21 - Adm w head lac., intoxicated. to undergo withdrawal Now in ICU, hemodynamically stable Video assessment done using teleICU camera, rest of exam as per RN Discussed with RN. + hallucinations, no sz Consultants: A/P ETOH abuse / intoxication / pending withdrawal syndrome -+ hallucinations. No seizures - monitor -Continue supportive care on [facility] protocol --cont benzo --2 doses phenobarb --, prn precedex -follow lytes -Thiamine and folate Anemia - most likely delutional , no sign of bleedien - monitor Lines : periph Sibley: OG: Nutrition: Po when awake enought VTE Prophylaxis: scd Stress Ulcer Prophylaxis: pepsid Glycemic Control: + Plans in collaboration with bedside consultants and IM MDs. Discussed with RN to reach out if any questions or concerns A total of 30 minutes of critical care time was devoted to this patient today, required to treat and/or prevent further deterioration of critical care condition ( as above ) . MOI HULL MD Mar 10, 2021 09:54
[2021-03-10] MEDS ORDERED: ASPI-1238 PO (10:44)
[2021-03-10] MEDS ORDERED: FLUO40CA PO (10:44)
[2021-03-10] MEDS ORDERED: MULT-1104 PO (10:44)
[2021-03-10] MEDS ORDERED: CETI10TA49 PO (10:45)
[2021-03-10] MEDS: FAMOTIDINE 20MG/2ML IV (PEPCID) IVP SCH (11:07)
[2021-03-10] MEDS: THIAMINE INJECTION 100 MG, FOLIC ACID INJECTION 1 MG, VITAMIN MULTI INJECTION 10 ML, MA... IV SCH ×5 (15:36)
[2021-03-11] MEDS: LORazepam INJ 2 MG/ML (ATIVAN) VIAL IV PRN ×10 (00:37→18:05)
[2021-03-11] MEDS: fentaNYL INJ 100 MCG/2 ML AMP IVP PRN ×4 (02:19→19:49)
[2021-03-11] MEDS: LACTATED RINGERS 1,000 ML IV SCH ×3 (02:19→13:15)
[2021-03-11 06:06] LABS: BASOPHILS % (AUTO) 1 % (0-10); EOSINOPHILS # (AUTO) 0.1 10^3/uL (0.0-0.3); EOSINOPHILS % (AUTO) 2 % (0-10); HEMATOCRIT 28 % (40-54); HEMOGLOBIN 9.3 g/dL (13.3-17.7); LYMPHOCYTES # (AUTO) 1.1 10^3/uL (1.0-4.0); LYMPHOCYTES % (AUTO) 30 % (12-44); MEAN CORPUSCULAR HEMOGLOBIN 30 pg (25-34); MEAN CORPUSCULAR HGB CONC 34 g/dL (32-36); MEAN CORPUSCULAR VOLUME 88 fL (80-99); MEAN PLATELET VOLUME 10.3 fL (9.0-12.2); MONOCYTES # (AUTO) 0.2 10^3/uL (0.0-1.0); MONOCYTES % (AUTO) 5 % (0-12); NEUTROPHILS # (AUTO) 2.4 10^3/uL (1.8-7.8); NEUTROPHILS % (AUTO) 62 % (42-75); PLATELET COUNT 128 10^3/uL (130-400); WHITE BLOOD COUNT 3.8 10^3/uL (4.3-11.0)
[2021-03-11 06:25] LABS: CHLORIDE 95 MMOL/L (98-107); POTASSIUM 3.1 MMOL/L (3.6-5.0); SODIUM 136 MMOL/L (135-145)
[2021-03-11 06:27] LABS: GLUCOSE 118 MG/DL (70-105)
[2021-03-11 06:29] LABS: CARBON DIOXIDE 33 MMOL/L (21-32)
[2021-03-11 06:31] LABS: GFR ESTIMATED > 60; PHOSPHORUS 1.5 MG/DL (2.3-4.7)
[2021-03-11 06:32] LABS: BUN/CREATININE RATIO 15
[2021-03-11 06:33] LABS: MAGNESIUM 2.4 MG/DL (1.6-2.4)
--- NOTE | 2021-03-11 06:38 | Progress Note - Hospitalist ---
Subjective HPI/CC On Admission Date Seen by Provider: Mar 11, 2021 Time Seen by Provider: 10:00 CC: Alcohol withdrawal HPI: This is a 60yoWM who presented to the [place] ER in alcohol withdrawal with a blood alcohol level of 436, Pt now is in alcohol withdrawal, he was acidotic, ABG was obtained, that was reviewed, IV fluids initiated because he was found down at home for a couple of days, he did have slight rhabdo with CPK of 930 so his lactic acid now is back to normal and he has received Ativan several times. Subjective/Events-last exam Pt incontinent requiring a diaper [place] alcohol withdrawal Checked labs Checked meds Review of Systems Neurological: Confusion Focused Exam Lactate Level 03/09/21 18:00: Lactic Acid Level 2.44*H 03/09/21 19:53: Lactic Acid Level 2.38*H 03/09/21 22:05: Lactic Acid Level 2.00 Objective Exam Vital Signs Vital Signs Date Time Temp Pulse Resp B/P (MAP) Pulse Ox O2 Delivery O2 Flow Rate FiO2 03/12/21 05:00 76 21 99/69 (80) 94 Nasal Cannula 2.00 03/12/21 04:12 36.4 Capillary Refill : Less Than 3 Seconds General Appearance: No Apparent Distress, WD/WN, Anxious, Chronically ill Respiratory: Lungs Clear Cardiovascular: Regular Rate, Rhythm Neurologic/Psychiatric: Disoriented Results/Procedures Lab Laboratory Tests 03/12/21 03:34 Patient resulted labs reviewed. Assessment/Plan Assessment and Plan Assess & Plan/Chief Complaint Assessment: Alcohol withdrawal Alcoholic hepatitis Cirrhosis Plan: ICU care Severe alcohol withdrawal Prognosis poor long-term 03/11/2021: Patient with severe alcohol withdrawal Monitor closely Diagnosis/Problems Diagnosis/Problems (1) Alcohol withdrawal delirium Status: Acute ESTIVEN AQUINO DO Mar 11, 2021 06:38
[2021-03-11] MEDS: POTASSIUM CL 10MEQ/50ML IVPB 50 ML IV SCH (06:41)
[2021-03-11] MEDS: MAGNESIUM 1 GM/100 ML IVPB 100 ML IV SCH (06:41)
[2021-03-11] MEDS: KCL 20 MEQ TAB (K-DUR) PO SCH (06:42)
[2021-03-11] MEDS ORDERED: POTASSIUM PHOSPHATE INJ 30 MM in NS (IVPB) 250 ML IV NR (07:00)
[2021-03-11] MEDS: ONDANSETRON 4 MG/2 ML (SDV) Z0FRAN IV PRN ×2 (08:01→19:49)
[2021-03-11] MEDS: THIAMINE INJECTION 100 MG, FOLIC ACID INJECTION 1 MG, VITAMIN MULTI INJECTION 10 ML, MA... IV SCH ×5 (08:19)
[2021-03-11] MEDS: FAMOTIDINE 20MG/2ML IV (PEPCID) IVP SCH (08:19)
--- NOTE | 2021-03-11 10:23 | Pulmonary Progress Note ---
Subjective Date Seen by a Provider: Mar 11, 2021 Time Seen by a Provider: 10:22 Sepsis Event Evaluation Height, Weight, BMI Height: 6'1.00" Weight: 188lbs. 0.0oz. 85.220461vb; 26.50 BMI Method:Stated Focused Exam Lactate Level 03/09/21 18:00: Lactic Acid Level 2.44*H 03/09/21 19:53: Lactic Acid Level 2.38*H 03/09/21 22:05: Lactic Acid Level 2.00 Exam Exam Patient acknowledged, consented, and participated in this virtual visit which was conducted using real time audio/video Vital Signs Date Time Temp Pulse Resp B/P (MAP) Pulse Ox O2 Delivery O2 Flow Rate FiO2 03/11/21 10:00 75 22 113/69 (84) 100 Nasal Cannula 3.00 03/11/21 09:00 77 85/76 (79) 99 Nasal Cannula 3.00 03/11/21 08:00 75 22 95/59 (71) 99 Nasal Cannula 3.00 03/11/21 07:20 36.1 03/11/21 07:00 79 22 92/70 (77) 100 Nasal Cannula 3.00 03/11/21 06:33 79 03/11/21 06:00 74 16 90/65 (73) 98 Nasal Cannula 3.00 03/11/21 05:00 76 15 110/72 (85) 98 Nasal Cannula 3.00 03/11/21 04:00 36.7 03/11/21 04:00 78 22 113/75 (88) 100 Nasal Cannula 3.00 03/11/21 03:12 100 Nasal Cannula 2.00 03/11/21 03:00 73 22 110/79 (89) 100 Nasal Cannula 3.00 03/11/21 02:00 72 26 109/76 (87) 97 Nasal Cannula 3.00 03/11/21 01:00 75 23 98/68 (78) 98 Nasal Cannula 3.00 03/11/21 01:00 75 03/11/21 00:00 73 26 103/65 (78) 98 Nasal Cannula 3.00 03/10/21 23:43 100 Nasal Cannula 2.00 03/10/21 23:00 73 23 100/71 (81) 98 Nasal Cannula 3.00 03/10/21 22:00 75 23 114/85 (95) 97 Nasal Cannula 3.00 03/10/21 21:30 76 23 107/78 (88) 96 Nasal Cannula 3.00 03/10/21 20:00 87 11 93/73 (80) 96 Nasal Cannula 3.00 03/10/21 19:38 100 Nasal Cannula 2.00 03/10/21 19:00 76 12 99/79 (86) 99 Nasal Cannula 3.00 03/10/21 19:00 76 03/10/21 18:00 84 22 101/64 (76) 97 Nasal Cannula 3.00 03/10/21 17:00 96 60 113/83 (93) 100 Nasal Cannula 3.00 03/10/21 16:00 79 21 113/88 (96) 100 Nasal Cannula 3.00 03/10/21 16:00 95 Room Air 03/10/21 15:37 36.3 03/10/21 15:00 80 42 115/86 (96) 100 Nasal Cannula 3.00 03/10/21 14:00 87 29 133/96 (108) 98 Nasal Cannula 3.00 03/10/21 13:13 Nasal Cannula 1.00 03/10/21 13:01 79 03/10/21 13:00 81 15 109/77 (88) 97 Nasal Cannula 3.00 03/10/21 12:00 81 8 119/80 (93) 98 Nasal Cannula 3.00 03/10/21 12:00 95 Room Air 03/10/21 11:20 36.8 03/10/21 11:00 90 30 119/77 (91) 96 Nasal Cannula 3.00 I & O 03/11/21 07:00 Intake Total 1500 ml Balance 1500 ml Height & Weight Height: 6'1.00" Weight: 188lbs. 0.0oz. 85.794511xc; 26.50 BMI Method:Stated General Appearance: Anxious, Chronically ill, Mild Distress HEENT: PERRL/EOMI, Normal ENT Inspection, Pharynx Normal, Moist Mucous Memb ranes Neck: Full Range of Motion, Normal Inspection, Non Tender Respiratory: Chest Non Tender, Lungs Clear, Normal Breath Sounds, No Accessory Muscle Use, No Respiratory Distress Cardiovascular: Regular Rate, Rhythm, No Edema, No Gallop, No JVD, No Murmur, Normal Peripheral Pulses Capillary Refill: Less Than 3 Seconds Gastrointestinal: non tender, soft Extremity: Normal Capillary Refill, Normal Inspection, Normal Range of Motion, Non Tender, No Calf Tenderness, No Pedal Edema Neurologic/Psychiatric: Alert, Oriented x3, No Motor/Sensory Deficits, Normal Mood/Affect Skin: Normal Color, Warm/Dry Lymphatic: No Adenopathy Results Lab Laboratory Tests 03/09/21 19:53 03/10/21 03:47 03/11/21 05:26 Assessment/Plan Assessment/Plan (Tele-ICU Physician , Progress Note ) Available chart/ vitals / labs / Images reviewed Video assessment done using teleICU camera, rest of exam as per RN Discussed with RN , AAO to person , Events overnight : Afebrile hemodynamically stable, no pressors, I/O = positive 1600 Drips: [id number] Consultants: Hospital course: 03/09/21 - Adm w head lac., intoxicated. to undergo withdrawal 03/09 Consultants: A/P ETOH abuse / intoxication / pending withdrawal syndrome -+ hallucinations. 03/10 and 03/11 , No seizures - monitor -Continue supportive care on [facility] protocol --cont benzo --sterted phenobarb 03/10 --not precedex -follow lytes -Thiamine and folate Anemia - most likely delutional , no sign of bleeding - monitor Lines : periph Sibley: OG: Nutrition: Po when awake enought VTE Prophylaxis: scd Stress Ulcer Prophylaxis: pepsid Glycemic Control: + Plans in collaboration with bedside consultants and IM MDs. Discussed with RN to reach out if any questions or concerns A total of 27 minutes of critical care time was devoted to this patient today, required to treat and/or prevent further deterioration of critical care condition ( as above ) . [id number] MOI HULL MD Mar 11, 2021 10:23
[2021-03-11 11:15] LABS: ALBUMIN 2.9 GM/DL (3.2-4.5)
[2021-03-11 11:18] LABS: TOTAL PROTEIN 5.6 GM/DL (6.4-8.2)
[2021-03-11 11:20] LABS: BILIRUBIN,TOTAL 1.5 MG/DL (0.1-1.0)
[2021-03-11 11:24] LABS: BILIRUBIN,DIRECT 0.9 MG/DL (0.0-0.3); BILIRUBIN,INDIRECT 0.6 MG/DL
[2021-03-12] MEDS: fentaNYL INJ 100 MCG/2 ML AMP IVP PRN ×6 (00:08→22:44)
[2021-03-12] MEDS: LACTATED RINGERS 1,000 ML IV SCH ×3 (00:49→20:14)
[2021-03-12] MEDS: ONDANSETRON 4 MG/2 ML (SDV) Z0FRAN IV PRN (02:40)
[2021-03-12] MEDS: LORazepam 1 MG (ATIVAN) TAB PO PRN ×2 (02:41→17:17)
[2021-03-12 03:42] LABS: BASOPHILS % (AUTO) 1 % (0-10); EOSINOPHILS # (AUTO) 0.1 10^3/uL (0.0-0.3); EOSINOPHILS % (AUTO) 2 % (0-10); HEMATOCRIT 28 % (40-54); HEMOGLOBIN 9.3 g/dL (13.3-17.7); LYMPHOCYTES # (AUTO) 1.5 10^3/uL (1.0-4.0); LYMPHOCYTES % (AUTO) 35 % (12-44); MEAN CORPUSCULAR HEMOGLOBIN 30 pg (25-34); MEAN CORPUSCULAR HGB CONC 34 g/dL (32-36); MEAN CORPUSCULAR VOLUME 89 fL (80-99); MEAN PLATELET VOLUME 9.4 fL (9.0-12.2); MONOCYTES # (AUTO) 0.3 10^3/uL (0.0-1.0); MONOCYTES % (AUTO) 7 % (0-12); NEUTROPHILS # (AUTO) 2.3 10^3/uL (1.8-7.8); NEUTROPHILS % (AUTO) 54 % (42-75); PLATELET COUNT 138 10^3/uL (130-400); WHITE BLOOD COUNT 4.2 10^3/uL (4.3-11.0)
[2021-03-12 03:55] LABS: CHLORIDE 95 MMOL/L (98-107); POTASSIUM 3.3 MMOL/L (3.6-5.0); SODIUM 136 MMOL/L (135-145)
[2021-03-12 03:56] LABS: CALCIUM 8.1 MG/DL (8.5-10.1)
[2021-03-12 03:57] LABS: GLUCOSE 112 MG/DL (70-105)
[2021-03-12 03:58] LABS: CARBON DIOXIDE 32 MMOL/L (21-32)
[2021-03-12 04:00] LABS: PHOSPHORUS 2.8 MG/DL (2.3-4.7)
[2021-03-12 04:01] LABS: GFR ESTIMATED > 60
[2021-03-12 04:02] LABS: BUN/CREATININE RATIO 17
[2021-03-12 04:03] LABS: MAGNESIUM 2.2 MG/DL (1.6-2.4)
[2021-03-12] MEDS: LORazepam INJ 2 MG/ML (ATIVAN) VIAL IV PRN ×3 (05:18→22:44)
[2021-03-12] MEDS: POTASSIUM CL 10MEQ/50ML IVPB 50 ML IV SCH ×4 (05:18→12:06)
--- NOTE | 2021-03-12 06:19 | Progress Note - Hospitalist ---
Subjective HPI/CC On Admission Date Seen by Provider: Mar 12, 2021 Time Seen by Provider: 09:30 CC: Alcohol withdrawal HPI: This is a 60yoWM who presented to the [place] ER in alcohol withdrawal with a blood alcohol level of 436, Pt now is in alcohol withdrawal, he was acidotic, ABG was obtained, that was reviewed, IV fluids initiated because he was found down at home for a couple of days, he did have slight rhabdo with CPK of 930 so his lactic acid now is back to normal and he has received Ativan several times. Subjective/Events-last exam Pt pretty lethargic from Ativan from alcohol withdrawal protocol Transferring to fourth floor Vitals and labs remain stable No falls Review of Systems General: Fatigue Neurological: Confusion Focused Exam Lactate Level Objective Exam Vital Signs Vital Signs Date Time Temp Pulse Resp B/P (MAP) Pulse Ox O2 Delivery O2 Flow Rate FiO2 03/13/21 04:18 36.1 77 20 120/75 (90) 92 Nasal Cannula 1.00 Capillary Refill : Less Than 3 Seconds General Appearance: No Apparent Distress, WD/WN, Chronically ill, Thin Respiratory: Lungs Clear Cardiovascular: Regular Rate, Rhythm Neurologic/Psychiatric: Alert, Disoriented Results/Procedures Lab Patient resulted labs reviewed. Assessment/Plan Assessment and Plan Assess & Plan/Chief Complaint Assessment: Alcohol withdrawal Alcoholic hepatitis Cirrhosis Plan: ICU care Severe alcohol withdrawal Prognosis poor long-term 03/11/2021: Patient with severe alcohol withdrawal Monitor closely 03/12/21: Monitor closely Prognosis poor given severity of etohism Diagnosis/Problems Diagnosis/Problems (1) Alcohol withdrawal delirium Status: Acute ESTIVEN AQUINO DO Mar 12, 2021 06:19
[2021-03-12] MEDS: KCL 20 MEQ TAB (K-DUR) PO SCH (07:08)
[2021-03-12] MEDS: MAGNESIUM 1 GM/100 ML IVPB 100 ML IV SCH (07:08)
[2021-03-12] MEDS: FAMOTIDINE 20MG/2ML IV (PEPCID) IVP SCH (09:16)
[2021-03-12] MEDS: THIAMINE INJECTION 100 MG, FOLIC ACID INJECTION 1 MG, VITAMIN MULTI INJECTION 10 ML, MA... IV SCH ×5 (09:16)
--- NOTE | 2021-03-12 10:11 | Pulmonary Progress Note ---
Subjective Date Seen by a Provider: Mar 12, 2021 Time Seen by a Provider: 10:07 Subjective/Events-last exam 60 M who has gone thru EtOH withdrawal, minimal sedation needs, is going to [facility] Hb has been slowly dropping now, no obvious bleeding will monitor Hb Sepsis Event Evaluation Height, Weight, BMI Height: 6'1.00" Weight: 188lbs. 0.0oz. 85.025762us; 26.50 BMI Method:Stated Focused Exam Lactate Level 03/09/21 18:00: Lactic Acid Level 2.44*H 03/09/21 19:53: Lactic Acid Level 2.38*H 03/09/21 22:05: Lactic Acid Level 2.00 Exam Exam Patient acknowledged, consented, and participated in this virtual visit which was conducted using real time audio/video Vital Signs Date Time Temp Pulse Resp B/P (MAP) Pulse Ox O2 Delivery O2 Flow Rate FiO2 03/12/21 09:00 70 22 115/64 (81) 89 Nasal Cannula 2.00 03/12/21 08:00 72 34 104/67 (79) 97 Nasal Cannula 2.00 03/12/21 08:00 95 Nasal Cannula 2.00 03/12/21 07:56 92 Nasal Cannula 2.00 03/12/21 07:51 35.8 03/12/21 07:00 70 19 108/77 (87) 100 Nasal Cannula 2.00 03/12/21 06:48 69 03/12/21 06:00 70 29 95/77 (83) 91 Nasal Cannula 2.00 03/12/21 05:00 76 21 99/69 (80) 94 Nasal Cannula 2.00 03/12/21 04:13 96 Nasal Cannula 2.00 03/12/21 04:12 36.4 03/12/21 04:00 74 20 102/67 (80) 99 Nasal Cannula 2.00 03/12/21 03:00 71 28 108/87 (96) 90 Nasal Cannula 2.00 03/12/21 02:00 70 16 111/67 (82) Nasal Cannula 2.00 03/12/21 01:00 71 17 108/67 (80) 100 Nasal Cannula 2.00 03/12/21 01:00 71 03/12/21 00:12 36.2 Nasal Cannula 2.00 03/12/21 00:11 96 Nasal Cannula 2.00 03/12/21 00:00 74 12 109/70 (85) 99 Nasal Cannula 2.00 03/11/21 23:00 71 16 100/64 (80) 100 Nasal Cannula 2.00 03/11/21 22:00 70 20 111/73 (90) 94 Nasal Cannula 2.00 03/11/21 21:00 75 18 103/66 (83) 100 Nasal Cannula 2.00 03/11/21 20:12 36.4 03/11/21 20:00 96 Nasal Cannula 2.00 03/11/21 20:00 76 20 109/67 (84) 100 Nasal Cannula 2.00 03/11/21 19:39 74 17 105/57 (68) 97 Nasal Cannula 2.00 03/11/21 19:00 73 17 103/64 (81) 98 Nasal Cannula 2.00 03/11/21 19:00 73 03/11/21 19:00 Nasal Cannula 2.00 03/11/21 18:00 76 14 84/47 (59) 98 Nasal Cannula 3.00 03/11/21 17:00 71 20 112/70 (84) 99 Nasal Cannula 3.00 03/11/21 16:50 95 Nasal Cannula 3.00 03/11/21 16:00 74 21 116/73 (87) 95 Nasal Cannula 3.00 03/11/21 15:56 100 Nasal Cannula 2.00 03/11/21 15:00 75 21 96/71 (79) 98 Nasal Cannula 3.00 03/11/21 14:00 75 17 117/68 (84) 99 Nasal Cannula 3.00 03/11/21 13:00 69 20 95/67 (76) 99 Nasal Cannula 3.00 03/11/21 12:40 69 03/11/21 12:00 100 Nasal Cannula 2.00 03/11/21 12:00 70 24 101/67 (78) 98 Nasal Cannula 3.00 03/11/21 11:00 73 20 98/67 (77) 99 Nasal Cannula 3.00 I & O 03/12/21 07:00 Intake Total 3100 ml Balance 3100 ml Height & Weight Height: 6'1.00" Weight: 188lbs. 0.0oz. 85.783791ci; 26.50 BMI Method:Stated General Appearance: No Apparent Distress, WD/WN, Anxious, Chronically ill HEENT: PERRL/EOMI, Normal ENT Inspection, Pharynx Normal, Moist Mucous Membranes Neck: Full Range of Motion, Normal Inspection, Non Tender Respiratory: Lungs Clear Cardiovascular: Regular Rate, Rhythm Capillary Refill: Less Than 3 Seconds Gastrointestinal: non tender, soft Extremity: Normal Capillary Refill, Normal Inspection, Normal Range of Motion, Non Tender, No Calf Tenderness, No Pedal Edema Neurologic/Psychiatric: Disoriented Skin: Normal Color, Warm/Dry Lymphatic: No Adenopathy Results Lab Laboratory Tests 03/11/21 05:26 03/12/21 03:34 Assessment/Plan Assessment/Plan looks like worst is over, will monitor Hb, going to [facility] Critical Care: Critically Ill Patient Time spent with patient (mins): 10 PAT LOZANO MD Mar 12, 2021 10:11
[2021-03-13] MEDS: LORazepam INJ 2 MG/ML (ATIVAN) VIAL IV PRN ×2 (01:46→06:04)
[2021-03-13] MEDS: LACTATED RINGERS 1,000 ML IV SCH ×3 (01:52→20:46)
[2021-03-13] MEDS: fentaNYL INJ 100 MCG/2 ML AMP IVP PRN ×2 (03:06→06:37)
--- NOTE | 2021-03-13 05:49 | Progress Note - Hospitalist ---
Subjective HPI/CC On Admission Date Seen by Provider: Mar 13, 2021 Time Seen by Provider: 11:00 CC: Alcohol withdrawal HPI: This is a 60yoWM who presented to the [place] ER in alcohol withdrawal with a blood alcohol level of 436, Pt now is in alcohol withdrawal, he was acidotic, ABG was obtained, that was reviewed, IV fluids initiated because he was found down at home for a couple of days, he did have slight rhabdo with CPK of 930 so his lactic acid now is back to normal and he has received Ativan several times. Subjective/Events-last exam Patient more alert Lays in bed most of the time Eating a little bit more PT and OT will be started Poor prognosis long-term given the severity of his alcoholism Hemoglobin 8.9 DC fentanyl and start hydrocodone 10 every 4 as needed Review of Systems General: Fatigue, Malaise Objective Exam Vital Signs Vital Signs Date Time Temp Pulse Resp B/P (MAP) Pulse Ox O2 Delivery O2 Flow Rate FiO2 03/13/21 16:56 36.6 79 20 120/79 (93) 95 Room Air 03/13/21 04:18 1.00 Capillary Refill : Less Than 3 Seconds General Appearance: No Apparent Distress, WD/WN, Chronically ill Respiratory: Lungs Clear Cardiovascular: Regular Rate, Rhythm Neurologic/Psychiatric: Alert, Depressed Affect Results/Procedures Lab Laboratory Tests 03/13/21 05:45 Patient resulted labs reviewed. Assessment/Plan Assessment and Plan Assess & Plan/Chief Complaint Assessment: Alcohol withdrawal Alcoholic hepatitis Cirrhosis Plan: ICU care Severe alcohol withdrawal Prognosis poor long-term 03/11/2021: Patient with severe alcohol withdrawal Monitor closely 03/12/21: Monitor closely Prognosis poor given severity of etohism 03/13/2021: Alcohol withdrawal protocol PT and OT Poor prognosis given severity of alcoholism Critical Care Critically Ill Patient Diagnosis/Problems Diagnosis/Problems (1) Alcohol withdrawal delirium Status: Acute ESTIVEN AQUINO DO Mar 13, 2021 05:49
[2021-03-13] MEDS: MULTIVIT W/MINERALS TAB (THERAGRAN M) PO SCH (06:05)
[2021-03-13 06:16] LABS: BASOPHILS % (AUTO) 1 % (0-10); EOSINOPHILS # (AUTO) 0.1 10^3/uL (0.0-0.3); EOSINOPHILS % (AUTO) 2 % (0-10); HEMATOCRIT 27 % (40-54); HEMOGLOBIN 8.9 g/dL (13.3-17.7); LYMPHOCYTES # (AUTO) 1.6 10^3/uL (1.0-4.0); LYMPHOCYTES % (AUTO) 31 % (12-44); MEAN CORPUSCULAR HEMOGLOBIN 30 pg (25-34); MEAN CORPUSCULAR HGB CONC 34 g/dL (32-36); MEAN CORPUSCULAR VOLUME 88 fL (80-99); MEAN PLATELET VOLUME 9.3 fL (9.0-12.2); MONOCYTES # (AUTO) 0.6 10^3/uL (0.0-1.0); MONOCYTES % (AUTO) 11 % (0-12); NEUTROPHILS # (AUTO) 2.7 10^3/uL (1.8-7.8); NEUTROPHILS % (AUTO) 52 % (42-75); PLATELET COUNT 167 10^3/uL (130-400); WHITE BLOOD COUNT 5.1 10^3/uL (4.3-11.0)
[2021-03-13 06:36] LABS: ALBUMIN 2.6 GM/DL (3.2-4.5); CHLORIDE 96 MMOL/L (98-107); POTASSIUM 3.5 MMOL/L (3.6-5.0); SODIUM 134 MMOL/L (135-145)
[2021-03-13 06:37] LABS: CALCIUM 7.9 MG/DL (8.5-10.1)
[2021-03-13 06:38] LABS: GLUCOSE 94 MG/DL (70-105)
[2021-03-13 06:39] LABS: TOTAL PROTEIN 4.9 GM/DL (6.4-8.2)
[2021-03-13 06:40] LABS: BILIRUBIN,TOTAL 0.6 MG/DL (0.1-1.0); CARBON DIOXIDE 29 MMOL/L (21-32)
[2021-03-13 06:42] LABS: ALKALINE PHOSPHATASE 82 U/L (40-136); CREATININE SERUM 0.53 MG/DL (0.60-1.30); GFR ESTIMATED > 60
[2021-03-13 06:43] LABS: BUN/CREATININE RATIO 13
[2021-03-13 06:45] LABS: ALANINE AMINOTRANSFERASE 57 U/L (0-55)
[2021-03-13] MEDS: LORazepam INJ 2 MG/ML (ATIVAN) VIAL IM/IV PRN ×2 (08:33→10:00)
[2021-03-13] MEDS: FAMOTIDINE 20MG/2ML IV (PEPCID) IVP SCH (08:55)
[2021-03-13] MEDS: ASPIRIN E.C. 81 MG (ECOTRIN) TAB PO SCH (08:55)
[2021-03-13] MEDS: LORATADINE (CLARITIN) 10 MG TAB PO SCH (08:55)
[2021-03-13] MEDS: FLUoxetine HCL 20 MG (PROzac) CAP PO SCH (08:55)
[2021-03-13] MEDS: LORazepam 1 MG (ATIVAN) TAB PO PRN ×2 (15:06→20:46)
--- NOTE | 2021-03-13 15:07 | Physical Therapy Evaluation ---
PT Evaluation-General Medical Diagnosis Admission Date Mar 09, 2021 at 12:12 Medical Diagnosis: ETOH abuse/withdrawal/detox Onset Date: Mar 09, 2021 Therapy Diagnosis Therapy Diagnosis: debility/weakness Height/Weight Height (Feet): 6 Height (Inches): 1.00 Weight (Pounds): 188 Weight (Ounces): 0.0 Precautions Precautions/Isolations: Fall Prevention, Standard Precautions Referral Physician: Светлана Reason for Referral: Evaluation/Treatment Medical History Pertinent Medical History: Alcoholism Additional Medical History liver disease Current History ER secondary to fall with head laceration Reviewed History: Yes Social History Home: Single Level Current Living Status: Alone Entry Into Home: Stairs With Railing PT Steps Into Home: 3 Prior Prior Level of Function SCALE: Activities may be completed with or without assistive devices. 5-Lwpyjtzejw-gatjbpt completes the activity by him/herself with no assistance from a helper. 5-Set-up or Clean-up Assistance-helper sets up or cleans up; patient completes activity. [place] assists only prior to or following the activity. 4-Supervision or Touching Assistance-helper provides verbal cues and/or touching/steadying and/or contact guard assistance as patient completes activity. Assistance may be provided throughout the activity or intermittently. 3-Partial/Moderate Assistance-helper does LESS THAN HALF the effort. [place] lifts, holds or supports trunk or limbs, but provides less than half the effort. 2-Substantial/Maximal Assistance-helper does MORE THAN HALF the effort. [place] lifts or holds trunk or limbs and provides more than half the effort. 2-Pkgnfjppt-fbjbxl does ALL the effort. Patient does none of the effort to complete the activity. Or, the assistance of 2 or more helpers is required for the patient to complete the activity. If activity was not attempted, code reason: 7-Patient Refused. 9-Not Applicable-not attempted and the patient did not perform the activity before the current illness, exacerbation or injury. 10-Not Attempted due to Environmental Limitations-(lack of equipment, weather restraints, etc.). 88-Not Attempted due to Medical Conditions or Safety Concerns. Bed Mobility: 6 Transfers (B,C,W/C): 6 Gait: 6 Stairs: 6 Indoor Mobility (Ambulation): Independent Stairs: Independent Prior Devices Use: None PT Evaluation-Current Subjective Patient agrees to PT. In bed with 4 rails up and alarm activated prior to and after PT session. Pain Numeric Pain Scale: 10-Worst Possible Pain Location: Right, Left Location Body Site: Side Pain Description: Sharp Objective Patient Orientation: Person, Situation Attachments: IV ROM/Strength ROM Lower Extremities bilateral LE WFL Strength Lower Extremities 4-/5 grossly bilateral LE Integumentary/Posture Bowel Incontinence: No Bladder Incontinence: Yes Posture cervical flexion Neuromuscular (Tone, Coordination, Reflexes) grossly intact Sensory Vision: Functional Hearing: Functional Transfers Roll Left to Right (QC): 6 Sit to Lying (QC): 6 Lying to Sitting/Side of Bed(Q: 6 Sit to Stand (QC): 4 Chair/Ges-lv-Glnbc Xfer(QC): 7 Gait Does the Patient Walk?: Yes Mode of Locomotion: Walk Anticipated Mode of Locomotion: Walk Walk 10 feet (QC): 4 Walk 50 ft with 2 Turns(QC): 4 Walk 150 ft (QC): 4 Distance: 250' Gait Assistive Device: FWW Comments/Gait Description functional gait sequence with multiple standing recovery periods due to fatigue Balance Sitting Static: Normal Sitting Dynamic: Normal Standing Static: Fair Standing Dynamic: Fair Picking up an Object (QC): 6 (patient donned socks ) Assessment/Needs 60 y.o. male, will benefit from skilled PT to address functional strength and mobility to improve current LOF to safely return to home at maximum LOF. Rehab Potential: Fair Post Rehab Potential-Barriers: compliance PT Assisted Goals Assisted Goals PT Assisted Goals Time Frame: Mar 21, 2021 Roll Left & Right (QC): 6 Sit to Lying (QC): 6 Lying-Sitting on Side/Bed(QC): 6 Sit to Stand (QC): 6 Chair/Ilx-zo-Gjmyn Xfer(QC): 6 Toilet Transfer (QC): 6 Does the Patient Walk: Yes Walk 10 feet (QC): 6 Walk 50ft with 2 Turns (QC): 6 Walk 150 ft (QC): 6 PT Plan Problem List Problem List: Activity Tolerance, Functional Strength, Safety, Balance, Gait, Transfer Treatment/Plan Treatment Plan: Continue Plan of Care Treatment Plan: Education, Functional Activity Danna, Functional Strength, Gait, Safety, Therapeutic Exercise, Transfers Treatment Duration: Mar 21, 2021 Frequency: 6 times per week Estimated Hrs Per Day: .25 hour per day Time/GCodes Time In: 1425 Time Out: 1440 Total Billed Treatment Time: 15 Total Billed Treatment 1 visit EVModC 15 min NANCY ALLEN PT Mar 13, 2021 15:06
--- NOTE | 2021-03-13 15:07 | Occupational Therapy Eval ---
OT Evaluation-General/PLF Medical Diagnosis Admission Date Mar 09, 2021 at 12:12 Medical Diagnosis: ETOH abuse, withdrawl, detox Onset Date: Mar 09, 2021 Therapy Diagnosis Therapy Diagnosis: decreased ADL Status Height/Weight Height (Feet): 6 Height (Inches): 1.00 Weight (Pounds): 188 Weight (Ounces): 0.0 Precautions Precautions/Isolations: Fall Prevention, Standard Precautions Referral Physician: Светлана Referral Reason: Evaluation/Treatment Medical History Pertinent Medical History: Alcoholism Additional Medical History abdominal hernia, fractures, liver disease Current History Pt's daughter check on him after not hearing from him for several days. When pt opened door, noted large amount of blood on kitchen floor and in bed. Pt appears to have fallen in kitchen, hitting his head with a laceration on back of his head. Social History Home: Single Level Current Living Status: Alone Entry Into Home: Stairs With Railing ADL-Prior Level of Function SCALE: Activities may be completed with or without assistive devices. 7-Bqgaxgjdik-syxaiik completes the activity by him/herself with no assistance from a helper. 5-Set-up or Clean-up Assistance-helper sets up or cleans up; patient completes activity. [place] assists only prior to or following the activity. 4-Supervision or Touching Assistance-helper provides verbal cues and/or touching/steadying and/or contact guard assistance as patient completes acti vity. Assistance may be provided throughout the activity or intermittently. 3-Partial/Moderate Assistance-helper does LESS THAN HALF the effort. [place] lifts, holds or supports trunk or limbs, but provides less than half the effort. 2-Substantial/Maximal Assistance-helper does MORE THAN HALF the effort. [place] lifts or holds trunk or limbs and provides more than half the effort. 3-Weqivhhse-doukgh does ALL the effort. Patient does none of the effort to complete the activity. Or, the assistance of 2 or more helpers is required for the patient to complete the activity. If activity was not attempted, code reason: 7-Patient Refused. 9-Not Applicable-not attempted and the patient did not perform the activity before the current illness, exacerbation or injury. 10-Not Attempted due to Environmental Limitations-(lack of equipment, weather restraints, etc.). 88-Not Attempted due to Medical Conditions or Safety Concerns. ADL PLOF Comments Pt reports being IND with ADLs and functional mobility at OF, no AE/AD. He has a walk in shower with a small threshold, and a bench. He indicates he rents the house and is unable to make major modifications to the home. Self Care: Independent Functional Cognition: Independent DME/Equipment: Bath Bench, Shower OT Current Status Subjective Pt laying in bed, just finishing with PT tx. Pt agreeable to OT evaluation and tx. Mental Status/Objective Patient Orientation: Person, Place, Situation Attachments: IV Current Hand Dominance: Right Upper Extremity ROM WFL, BUE shoulder flexion to approx 140 degrees. Upper Extremity Coordination WFL Upper Extremity Sensation WFL, pt denies tingling/numbness Upper Extremity Strength grossly 3+/5 ADL-Treatment Eating (QC): 5 (Set up assist to take drink.) Oral Hygiene (QC): 7 Shower/Bathe Self (QC): 7 On/Off Footwear (QC): 6 (Per PT, pt able to don bilateral gripper socks prior to ambualtion) Toileting Hygiene (QC): 7 Other Treatments Pt laying in bed, just returned to room from ambulating with physical therapy. OT educated pt on purpose and benefit of OT, he verbalized understanding. Pt provided information about PLOF and home set up, and participated in UE screen. OT encouraged pt to participate in ADLs, but pt declined. Pt states need for a drink, OT encouraged pt to grab drink from tray table, he grabs a cup off of table and hands to OT to pour out. OT again encouraged pt to reach for his water cup and take a drink, he does not follow instruction. Once OT placed cup in hand, pt able to take a drink. Pt agreeable to UE exercise in order to increase BUE strength and activity tolerance to increase safety and independence with ADL function and functional tasks. Pt completed x10 reps BUE shoulder flexion, and x10 reps BUE horizontal abduction requiring skilled verbal cues. Pt has hiccups throughout exercises. He stops exercises, asks for a cup of ice. OT provides pt with ice and pours drink for him, handing pt cup. Pt able to take drink, then place on tray table. Pt declined further exercises. Post tx, pt laying in bed, call light in reach and all needs met, bed alarm activated. 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 2=Patient will verbalize/demonstrate understanding of assistive devices/modifications for ADL. 3=Patient will improve strength/tolerance for activity to enable patient to perf orm ADL's. OT Education/Plan Problem List/Assessment Assessment: Decreased Activ Tolerance, Decreased Safety Aware, Decreased UE Strength, Impaired I ADL's, Impaired Self-Care Skills Discharge Recommendations Plan/Recommendations: Continue POC Treatment Plan/Plan of Care Patient would benefit from OT for education, treatment and training to promote independence in ADL's, mobility, safety and/or upper extremity function for ADL's. Plan of Care: ADL Retraining, Functional Mobility, UE Funct Exercise/Act Treatment Duration: Mar 21, 2021 Frequency: 5 times per week Estimated Hrs Per Day: .25 hour per day Rehab Potential: Guarded Time/GCodes Start Time: 14:42 Stop Time: 14:57 Total Time Billed (hr/min): 15 Billed Treatment Time 1, REBECA CHOW OT Mar 13, 2021 15:07
[2021-03-14] MEDS: LORazepam 1 MG (ATIVAN) TAB PO PRN (01:43)
[2021-03-14] MEDS: MULTIVIT W/MINERALS TAB (THERAGRAN M) PO SCH (05:24)
[2021-03-14] MEDS: LACTATED RINGERS 1,000 ML IV SCH (05:33)
--- NOTE | 2021-03-14 05:56 | PM&R Progress Note ---
Subjective HPI/CC On Admission Date Seen by Provider: Mar 14, 2021 CC: Alcohol withdrawal HPI: This is a 60yoWM who presented to the [place] ER in alcohol withdrawal with a blood alcohol level of 436, Pt now is in alcohol withdrawal, he was acidotic, ABG was obtained, that was reviewed, IV fluids initiated because he was found down at home for a couple of days, he did have slight rhabdo with CPK of 930 so his lactic acid now is back to normal and he has received Ativan several times. Objective Exam Vital Signs Vital Signs Date Time Temp Pulse Resp B/P (MAP) Pulse Ox O2 Delivery O2 Flow Rate FiO2 03/14/21 04:16 36.2 75 18 119/78 (92) 92 Room Air 03/13/21 04:18 1.00 Capillary Refill : Less Than 3 Seconds General Appearance: No Apparent Distress, WD/WN, Chronically ill HEENT: PERRL/EOMI, Normal ENT Inspection, Pharynx Normal, Moist Mucous Membranes Neck: Full Range of Motion, Normal Inspection, Non Tender Respiratory: Lungs Clear Cardiovascular: Regular Rate, Rhythm Gastrointestinal: Normal Bowel Sounds, No Organomegaly, No Pulsatile Mass, Non Tender, Soft Back: Normal Inspection, No CVA Tenderness, No Vertebral Tenderness Extremity: Normal Capillary Refill, Normal Inspection, Normal Range of Motion, Non Tender, No Calf Tenderness, No Pedal Edema Neurologic/Psychiatric: Alert, Depressed Affect Skin: Normal Color, Warm/Dry Lymphatic: No Adenopathy Results/Procedures Lab Patient resulted labs reviewed. FIM Transfers Therapy Code Descriptions/Definitions Functional [place] Measure: 0=Not Assessed/NA 4=Minimal Assistance 1=Total Assistance 5=Supervision or Setup 2=Maximal Assistance 6=Modified [place] 3=Moderate Assistance 7=Complete IndependenceSCALE: Activities may be completed with or without assistive devices. 9-Aavleykccc-nwjyuie completes the activity by him/herself with no assistance from a helper. 5-Set-up or Clean-up Assistance-helper sets up or cleans up; patient completes activity. [place] assists only prior to or following the activity. 4-Supervision or Touching Assistance-helper provides verbal cues and/or touching/steadying and/or contact guard assistance as patient completes activity. Assistance may be provided throughout the activity or intermittently. 3-Partial/Moderate Assistance-helper does LESS THAN HALF the effort. [place] lifts, holds or supports trunk or limbs, but provides less than half the effort. 2-Substantial/Maximal Assistance-helper does MORE THAN HALF the effort. [place] lifts or holds trunk or limbs and provides more than half the effort. 4-Venpicihr-oevlaw does ALL the effort. Patient does none of the effort to complete the activity. Or, the assistance of 2 or more helpers is required for the patient to complete the activity. If activity was not attempted, code reason: 7-Patient Refused. 9-Not Applicable-not attempted and the patient did not perform the activity before the current illness, exacerbation or injury. 10-Not Attempted due to Environmental Limitations-(lack of equipment, weather restraints, etc.). 88-Not Attempted due to Medical Conditions or Safety Concerns. Roll Left to Right (QC): 6 Sit to Lying (QC): 6 Sit to Stand (QC): 4 Chair/Ugf-of-Tnbkb Xfer(QC): 7 Gait Training Does the Patient Walk?: Yes Walk 10 feet (QC): 4 Walk 50 ft with 2 Turns(QC): 4 Walk 150 ft (QC): 4 Gait Assistive Device: FWW Balance Picking up an Object (QC): 6 (patient donned socks ) ADL-Treatment Eating (QC): 5 (Set up assist to take drink.) Oral Hygiene (QC): 7 Shower/Bathe Self (QC): 7 On/Off Footwear (QC): 6 (Per PT, pt able to don bilateral gripper socks prior to ambualtion) Toileting Hygiene (QC): 7 Assessment/Plan Assessment and Plan Assess & Plan/Chief Complaint Assessment: Alcohol withdrawal Alcoholic hepatitis Cirrhosis Plan: ICU care Severe alcohol withdrawal Prognosis poor long-term 03/11/2021: Patient with severe alcohol withdrawal Monitor closely 03/12/21: Monitor closely Prognosis poor given severity of etohism 03/13/2021: Alcohol withdrawal protocol PT and OT Poor prognosis given severity of alcoholism (1) Alcohol withdrawal delirium Status: Acute Critical Care Critical Care: Critically Ill Patient ESTIVEN AQUINO DO Mar 14, 2021 05:56
--- NOTE | 2021-03-14 05:57 | Progress Note - Hospitalist ---
Subjective HPI/CC On Admission Date Seen by Provider: Mar 14, 2021 Time Seen by Provider: 11:00 CC: Alcohol withdrawal HPI: This is a 60yoWM who presented to the [place] ER in alcohol withdrawal with a blood alcohol level of 436, Pt now is in alcohol withdrawal, he was acidotic, ABG was obtained, that was reviewed, IV fluids initiated because he was found down at home for a couple of days, he did have slight rhabdo with CPK of 930 so his lactic acid now is back to normal and he has received Ativan several times. Subjective/Events-last exam Patient doing a little better Still very weak Working with therapy Bruising of right flank Wants to stay here several more days Review of Systems General: Fatigue, Malaise Objective Exam Vital Signs Vital Signs Date Time Temp Pulse Resp B/P (MAP) Pulse Ox O2 Delivery O2 Flow Rate FiO2 03/15/21 04:13 37.2 78 20 134/81 (98) 94 Room Air 03/14/21 20:40 1.00 Capillary Refill : Less Than 3 Seconds General Appearance: No Apparent Distress, WD/WN, Chronically ill Respiratory: Lungs Clear Cardiovascular: Regular Rate, Rhythm Neurologic/Psychiatric: Alert, Oriented x3 Results/Procedures Lab Laboratory Tests 03/14/21 06:38 Patient resulted labs reviewed. Assessment/Plan Assessment and Plan Assess & Plan/Chief Complaint Assessment: Alcohol withdrawal Alcoholic hepatitis Cirrhosis Plan: ICU care Severe alcohol withdrawal Prognosis poor long-term 03/11/2021: Patient with severe alcohol withdrawal Monitor closely 03/12/21: Monitor closely Prognosis poor given severity of etohism 03/13/2021: Alcohol withdrawal protocol PT and OT Poor prognosis given severity of alcoholism 03/13/2021: PT and OT Home soon Critical Care Critically Ill Patient Diagnosis/Problems Diagnosis/Problems (1) Alcohol withdrawal delirium Status: Acute ESTIVEN AQUINO DO Mar 14, 2021 05:57
[2021-03-14 06:47] LABS: BASOPHILS % (AUTO) 1 % (0-10); EOSINOPHILS # (AUTO) 0.1 10^3/uL (0.0-0.3); EOSINOPHILS % (AUTO) 2 % (0-10); HEMATOCRIT 26 % (40-54); HEMOGLOBIN 9.1 g/dL (13.3-17.7); LYMPHOCYTES # (AUTO) 1.6 10^3/uL (1.0-4.0); LYMPHOCYTES % (AUTO) 33 % (12-44); MEAN CORPUSCULAR HEMOGLOBIN 30 pg (25-34); MEAN CORPUSCULAR HGB CONC 35 g/dL (32-36); MEAN CORPUSCULAR VOLUME 88 fL (80-99); MEAN PLATELET VOLUME 8.8 fL (9.0-12.2); MONOCYTES # (AUTO) 0.8 10^3/uL (0.0-1.0); MONOCYTES % (AUTO) 16 % (0-12); NEUTROPHILS # (AUTO) 2.1 10^3/uL (1.8-7.8); NEUTROPHILS % (AUTO) 42 % (42-75); PLATELET COUNT 186 10^3/uL (130-400); WHITE BLOOD COUNT 4.9 10^3/uL (4.3-11.0)
[2021-03-14 07:15] LABS: ALBUMIN 2.6 GM/DL (3.2-4.5); CHLORIDE 97 MMOL/L (98-107); POTASSIUM 3.3 MMOL/L (3.6-5.0); SODIUM 132 MMOL/L (135-145)
[2021-03-14 07:17] LABS: CALCIUM 7.9 MG/DL (8.5-10.1)
[2021-03-14 07:18] LABS: GLUCOSE 97 MG/DL (70-105); TOTAL PROTEIN 4.9 GM/DL (6.4-8.2)
[2021-03-14 07:19] LABS: CARBON DIOXIDE 28 MMOL/L (21-32)
[2021-03-14 07:20] LABS: BILIRUBIN,TOTAL 0.6 MG/DL (0.1-1.0)
[2021-03-14 07:21] LABS: ALKALINE PHOSPHATASE 75 U/L (40-136); CREATININE SERUM 0.57 MG/DL (0.60-1.30); GFR ESTIMATED > 60
[2021-03-14 07:22] LABS: BUN/CREATININE RATIO 11
[2021-03-14 07:24] LABS: ALANINE AMINOTRANSFERASE 52 U/L (0-55)
[2021-03-14] MEDS: FLUoxetine HCL 20 MG (PROzac) CAP PO SCH (08:39)
[2021-03-14] MEDS: LORATADINE (CLARITIN) 10 MG TAB PO SCH (08:39)
[2021-03-14] MEDS: ASPIRIN E.C. 81 MG (ECOTRIN) TAB PO SCH (08:39)
[2021-03-14] MEDS: FAMOTIDINE 20MG/2ML IV (PEPCID) IVP SCH (08:40)
--- NOTE | 2021-03-14 09:33 | Physical Therapy Daily Note ---
PT Daily Note-Current Subjective Patient is more alert on this date. Mental Status Patient Orientation: Normal For Age Attachments: IV Transfers SCALE: Activities may be completed with or without assistive devices. 4-Nhlzbkmlsg-heyfvtj completes the activity by him/herself with no assistance from a helper. 5-Set-up or Clean-up Assistance-helper sets up or cleans up; patient completes activity. [place] assists only prior to or following the activity. 4-Supervision or Touching Assistance-helper provides verbal cues and/or touching/steadying and/or contact guard assistance as patient completes activity. Assistance may be provided throughout the activity or intermittently. 3-Partial/Moderate Assistance-helper does LESS THAN HALF the effort. [place] lifts, holds or supports trunk or limbs, but provides less than half the effort. 2-Substantial/Maximal Assistance-helper does MORE THAN HALF the effort. [place] lifts or holds trunk or limbs and provides more than half the effort. 5-Doargyrgw-petspl does ALL the effort. Patient does none of the effort to complete the activity. Or, the assistance of 2 or more helpers is required for the patient to complete the activity. If activity was not attempted, code reason: 7-Patient Refused. 9-Not Applicable-not attempted and the patient did not perform the activity before the current illness, exacerbation or injury. 10-Not Attempted due to Environmental Limitations-(lack of equipment, weather restraints, etc.). 88-Not Attempted due to Medical Conditions or Safety Concerns. Lying to Sitting/Side of Bed(Q: 4 Sit to Stand (QC): 4 Chair/Jqs-wb-Mdstl Xfer(QC): 4 Gait Training Does the Patient Walk?: Yes Distance: 250' Walk 10 feet (QC): 4 Walk 50 ft with 2 Turns(QC): 4 Walk 150 ft (QC): 4 Gait Assistive Device: FWW CGA for safety due to occasional unsteady gait Assessment Patient instructed to call for assistance to use restroom due to instability. Chair alarm activated. Patient improving, however, balance remains an issue. PT Respiratory Services Manager Goals [facility] Goals PT [facility] Goals Time Frame: Mar 21, 2021 Roll Left & Right (QC): 6 Sit to Lying (QC): 6 Lying-Sitting on Side/Bed(QC): 6 Sit to Stand (QC): 6 Chair/Wnb-ra-Ziqll Xfer(QC): 6 Toilet Transfer (QC): 6 Does the Patient Walk: Yes Walk 10 feet (QC): 6 Walk 50ft with 2 Turns (QC): 6 Walk 150 ft (QC): 6 PT Plan Treatment/Plan Treatment Plan: Continue Plan of Care Treatment Plan: Education, Functional Activity Danna, Functional Strength, Gait, Safety, Therapeutic Exercise, Transfers Treatment Duration: Mar 21, 2021 Frequency: 6 times per week Estimated Hrs Per Day: .25 hour per day Time/GCodes Time In: 902 Time Out: 917 Total Billed Treatment Time: 15 Total Billed Treatment 1 visit FA 15 min NANCY ALLEN PT Mar 14, 2021 09:33
--- NOTE | 2021-03-14 10:43 | Occupational Ther Daily Note ---
OT Current Status-Daily Note Subjective Pt laying in bed, agreeable to OT tx. Pt states he feels better today, but doesn't quite feel strong enough to return home alone. ADL-Treatment Therapy Code Descriptions/Definitions Functional [place] Measure: 0=Not Assessed/NA 4=Minimal Assistance 1=Total Assistance 5=Supervision or Setup 2=Maximal Assistance 6=Modified [place] 3=Moderate Assistance 7=Complete IndependenceSCALE: Activities may be completed with or without assistive devices. 6-Yvupnrwbhx-hqmzafg completes the activity by him/herself with no assistance from a helper. 5-Set-up or Clean-up Assistance-helper sets up or cleans up; patient completes activity. [place] assists only prior to or following the activity. 4-Supervision or Touching Assistance-helper provides verbal cues and/or touching/steadying and/or contact guard assistance as patient completes activity. Assistance may be provided throughout the activity or intermittently. 3-Partial/Moderate Assistance-helper does LESS THAN HALF the effort. [place] lifts, holds or supports trunk or limbs, but provides less than half the effort. 2-Substantial/Maximal Assistance-helper does MORE THAN HALF the effort. [place] lifts or holds trunk or limbs and provides more than half the effort. 5-Nfcdrsoqb-oypumq does ALL the effort. Patient does none of the effort to complete the activity. Or, the assistance of 2 or more helpers is required for the patient to complete the activity. If activity was not attempted, code reason: 7-Patient Refused. 9-Not Applicable-not attempted and the patient did not perform the activity before the current illness, exacerbation or injury. 10-Not Attempted due to Environmental Limitations-(lack of equipment, weather restraints, etc.). 88-Not Attempted due to Medical Conditions or Safety Concerns. Eating (QC): 6 (IND with pudding) Oral Hygiene (QC): 5 (set up at tray table.) Shower/Bathe Self (QC): 7 Toileting Hygiene (QC): 5 (clean up of urinal) Other Treatment Pt laying in bed, agreeable to OT tx. Pt declined completing shower at this time, but agreeable to brushing his teeth and washing his face. Pt completed both with set up assistance. OT emptied pt's urinal. Pt has pudding on table, states he is able to open independently. Post tx, pt laying in bed, call light i n reach and all needs met. 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 2=Patient will verbalize/demonstrate understanding of assistive devices/modifications for ADL. 3=Patient will improve strength/tolerance for activity to enable patient to perform ADL's. OT Education/Plan Problem List/Assessment Assessment: Decreased Activ Tolerance, Decreased Safety Aware, Decreased UE Strength, Impaired I ADL's, Impaired Self-Care Skills Discharge Recommendations Plan/Recommendations: Continue POC Treatment Plan/Plan of Care Patient would benefit from OT for education, treatment and training to promote independence in ADL's, mobility, safety and/or upper extremity function for ADL's. Plan of Care: ADL Retraining, Functional Mobility, UE Funct Exercise/Act Treatment Duration: Mar 21, 2021 Frequency: 5 times per week Estimated Hrs Per Day: .25 hour per day Rehab Potential: Guarded Time/GCodes Start Time: 10:23 Stop Time: 10:33 Total Time Billed (hr/min): 10 Billed Treatment Time 1, ADL REBECA YEAGER OT Mar 14, 2021 10:43
[2021-03-15] MEDS: ONDANSETRON 4 MG/2 ML (SDV) Z0FRAN IV PRN (05:38)
[2021-03-15] MEDS: MULTIVIT W/MINERALS TAB (THERAGRAN M) PO SCH (05:38)
[2021-03-15 06:27] LABS: BASOPHILS % (AUTO) 1 % (0-10); EOSINOPHILS # (AUTO) 0.1 10^3/uL (0.0-0.3); EOSINOPHILS % (AUTO) 2 % (0-10); HEMATOCRIT 30 % (40-54); LYMPHOCYTES # (AUTO) 1.5 10^3/uL (1.0-4.0); LYMPHOCYTES % (AUTO) 29 % (12-44); MEAN CORPUSCULAR HEMOGLOBIN 30 pg (25-34); MEAN CORPUSCULAR HGB CONC 34 g/dL (32-36); MEAN CORPUSCULAR VOLUME 91 fL (80-99); MONOCYTES % (AUTO) 20 % (0-12); NEUTROPHILS % (AUTO) 41 % (42-75); PLATELET COUNT 232 10^3/uL (130-400)
[2021-03-15 06:39] LABS: ALBUMIN 2.9 GM/DL (3.2-4.5); CHLORIDE 96 MMOL/L (98-107); SODIUM 132 MMOL/L (135-145)
[2021-03-15 06:40] LABS: CALCIUM 7.9 MG/DL (8.5-10.1)
[2021-03-15 06:41] LABS: GLUCOSE 107 MG/DL (70-105); TOTAL PROTEIN 5.4 GM/DL (6.4-8.2)
[2021-03-15 06:42] LABS: CARBON DIOXIDE 26 MMOL/L (21-32)
[2021-03-15 06:43] LABS: BILIRUBIN,TOTAL 0.6 MG/DL (0.1-1.0)
[2021-03-15 06:45] LABS: ALKALINE PHOSPHATASE 82 U/L (40-136); CREATININE SERUM 0.63 MG/DL (0.60-1.30); GFR ESTIMATED > 60
[2021-03-15 06:46] LABS: BUN/CREATININE RATIO 8
[2021-03-15 06:48] LABS: ALANINE AMINOTRANSFERASE 46 U/L (0-55)
[2021-03-15 07:11] LABS: ANISOCYTOSIS MODERATE; EOSINOPHILS % (MANUAL) 3 %; LYMPHOCYTES % (MANUAL) 27 %; METAMYELOCYTES % 1 %; MONOCYTES % (MANUAL) 18 %; MYELOCYTES % 2 %; NEUTROPHILS % (MANUAL) 49 %
[2021-03-15] MEDS: FAMOTIDINE 20MG/2ML IV (PEPCID) IVP SCH (08:18)
[2021-03-15] MEDS: ASPIRIN E.C. 81 MG (ECOTRIN) TAB PO SCH (08:19)
[2021-03-15] MEDS: LORATADINE (CLARITIN) 10 MG TAB PO SCH (08:19)
[2021-03-15] MEDS: FLUoxetine HCL 20 MG (PROzac) CAP PO SCH (08:19)
[2021-03-15] MEDS ORDERED: KCL 20 MEQ TAB (K-DUR) PO ONE (08:45)
[2021-03-15] MEDS ORDERED: POTA10TA6 PO (11:57)
[2021-03-15] MEDS ORDERED: OXC5T PO (11:57)
--- NOTE | 2021-03-15 11:58 | Discharge Summary ---
Discharge Summary Hospital Course Was the Problem List Reviewed?: Yes Problems/Dx: (1) Alcohol withdrawal delirium Status: Acute Hospital Course Date of Admission: Mar 09, 2021 at 12:12 Admission Diagnosis : Family Physician/Provider: Jayla Thompson Aprn Date of Discharge: 03/15/21 Discharge Diagnosis: Alcohol withdrawal, found down at home, multiple bruises with muscle pain Hospital Course: Patient had a lengthy hospital course most of it in the ICU due to the severity of his alcohol withdrawal. Patient ultimately stabilized and was able to be transferred down to fourth floor. Poor prognosis remains to the severity of his alcoholism. He was able to eat and drink bowels are moving ambulating in the halls 20 times daily and he was deemed ready for discharge which he wanted to stay here for a few more days but he did not require hospital stay he was discharged in improved condition. Labs and Pending Lab Test: Laboratory Tests 03/15/21 06:12: White Blood Count 5.0, Red Blood Count 3.29L, Hemoglobin 10.0L, Hematocrit 30L, Mean Corpuscular Volume 91, Mean Corpuscular Hemoglobin 30, Mean Corpuscular Hemoglobin Concent 34, Red Cell Distribution Width 17.4H, Platelet Count 232, Mean Platelet Volume 9.0, Immature Granulocyte % (Auto) 7, Neutrophils (%) (Auto) 41L, Lymphocytes (%) (Auto) 29, Monocytes (%) (Auto) 20H, Eosinophils (%) (Auto) 2, Basophils (%) (Auto) 1, Neutrophils # (Auto) 2.0, Lymphocytes # (Auto) 1.5, Monocytes # (Auto) 1.0, Eosinophils # (Auto) 0.1, Basophils # (Auto) 0.0, Immature Granulocyte # (Auto) 0.4H, Neutrophils % (Manual) 49, Lymphocytes % (Manual) 27, Monocytes % (Manual) 18, Eosinophils % (Manual) 3, Metamyelocytes % 1, Myelocytes % 2, Anisocytosis MODERATE, Sodium Level 132L, Potassium Level 3.0L, Chloride Level 96L, Carbon Dioxide Level 26, Anion Gap 10, Blood Urea Nitrogen 5L, Creatinine 0.63, Estimat Glomerular Filtration Rate > 60, BUN/Creatinine Ratio 8, Glucose Level 107H, Calcium Level 7.9L, Corrected Calcium 8.8, Total Bilirubin 0.6, Aspartate Amino Transf (AST/SGOT) 24, Alanine Aminotransferase (ALT/SGPT) 46, Alkaline Phosphatase 82, Total Protein 5.4L, Albumin 2.9L Microbiology 03/09/21 MRSA Screen - Final, Complete MRSA not isolated Home Meds Active Klor-Con 10 (Potassium Chloride) 10 Meq Tablet.er 10 Meq PO TID Oxyir Tablet (Oxycodone HCl) 5 Mg Tab 5 Mg PO Q4H PRN Reported Zyrtec (Cetirizine HCl) 10 Mg Tablet 10 Mg PO DAILY Men's 50 Plus Multivitamin Tab (Multivit-Min/Folic/Vit K/Lycop) 1 Each Tablet 1 Each PO DAILY Aspirin EC (Aspirin) 81 Mg Tablet.dr 81 Mg PO DAILY Fluoxetine HCl 40 Mg Capsule 40 Mg PO DAILY Assessment/Pt Instructions [facility] in 1 week Discharge Planning: <30 minutes discharge planning Discharge Instructions Discharge Diet: No Restrictions Discharge Physical Examination Vital Signs Vital Signs Date Time Temp Pulse Resp B/P (MAP) Pulse Ox O2 Delivery O2 Flow Rate FiO2 03/15/21 08:00 36.4 74 16 110/74 (86) 96 Room Air 03/14/21 20:40 1.00 General Appearance: No Apparent Distress, WD/WN Allergies: Coded Allergies: No Known Drug Allergies (Unverified , 10/16/20) Discharge Summary Date of Admission Mar 09, 2021 at 12:12 Date of Discharge Discharge Date: Mar 15, 2021 Admission Diagnosis Assessment: Alcohol withdrawal Alcoholic hepatitis Cirrhosis Plan: ICU care Severe alcohol withdrawal Prognosis poor long-term Discharge Diagnosis Assessment: Alcohol withdrawal Alcoholic hepatitis Cirrhosis Plan: ICU care Severe alcohol withdrawal Prognosis poor long-term 03/11/2021: Patient with severe alcohol withdrawal Monitor closely 03/12/21: Monitor closely Prognosis poor given severity of etohism 03/13/2021: Alcohol withdrawal protocol PT and OT Poor prognosis given severity of alcoholism 03/13/2021: PT and OT Home soon (1) Alcohol withdrawal delirium Status: Acute ESTIVEN AQUINO DO Mar 15, 2021 11:58
[2021-03-15] MEDS: KCL 10 MEQ TAB (MICRO K) PO SCH ×2 (13:21→13:23)
--- NOTE | 2021-03-15 13:28 | Physical Therapy Daily Note ---
PT Daily Note-Current Subjective Pt reports he has already been around and made 6 laps. Pt agrees to therapy. Pt denies pain. Mental Status Patient Orientation: Person, Place, Situation Transfers SCALE: Activities may be completed with or without assistive devices. 4-Tsuslbjkev-jihilfg completes the activity by him/herself with no assistance from a helper. 5-Set-up or Clean-up Assistance-helper sets up or cleans up; patient completes activity. [place] assists only prior to or following the activity. 4-Supervision or Touching Assistance-helper provides verbal cues and/or touching/steadying and/or contact guard assistance as patient completes activity. Assistance may be provided throughout the activity or intermittently. 3-Partial/Moderate Assistance-helper does LESS THAN HALF the effort. [place] lifts, holds or supports trunk or limbs, but provides less than half the effort. 2-Substantial/Maximal Assistance-helper does MORE THAN HALF the effort. [place] lifts or holds trunk or limbs and provides more than half the effort. 9-Swswrqspz-npubdn does ALL the effort. Patient does none of the effort to complete the activity. Or, the assistance of 2 or more helpers is required for the patient to complete the activity. If activity was not attempted, code reason: 7-Patient Refused. 9-Not Applicable-not attempted and the patient did not perform the activity before the current illness, exacerbation or injury. 10-Not Attempted due to Environmental Limitations-(lack of equipment, weather restraints, etc.). 88-Not Attempted due to Medical Conditions or Safety Concerns. Treatments Tranfers and gait (I). Pt amb in hallway x 250ft with SBA. Assessment Current Status: Excellent Progress Pt (I) with functional mobility. Pt back to bed with call light and all needs met. PT Vest Maker Goals Vest Maker Goals PT Mcc Goals Time Frame: Mar 21, 2021 Roll Left & Right (QC): 6 Sit to Lying (QC): 6 Lying-Sitting on Side/Bed(QC): 6 Sit to Stand (QC): 6 Chair/Iio-uz-Ygpec Xfer(QC): 6 Toilet Transfer (QC): 6 Does the Patient Walk: Yes Walk 10 feet (QC): 6 Walk 50ft with 2 Turns (QC): 6 Walk 150 ft (QC): 6 PT Plan Treatment/Plan Treatment Plan: Continue Plan of Care Treatment Plan: Education, Functional Activity Danna, Functional Strength, Gait, Safety, Therapeutic Exercise, Transfers Treatment Duration: Mar 21, 2021 Frequency: 6 times per week Estimated Hrs Per Day: .25 hour per day Time/GCodes Time In: 1215 Time Out: 1225 Total Billed Treatment Time: 10 Total Billed Treatment 1, gait 10' KIARA ASCENCIO CPTA Mar 15, 2021 13:28
[2021-03-15 13:30] VITALS: BP 126/84
== END 2021-03-15 13:45 | disposition home or self-care (01) | DRG 897 ==
LOC: EDUNIT# 08:52 → ER FS 08:56 → ICU 12:12 → 4TH 03-12 11:25
PROVIDERS: ADMIT Internal Medicine; ATTEND Internal Medicine
PROC: 0HQ0XZZ Repair Scalp Skin, External Approach (ICD-10-PCS; principal; 2021-03-09)
DX: F10.229 Alcohol dependence with intoxication, unspecified (principal); M62.82 Rhabdomyolysis; S01.01XA Laceration without foreign body of scalp, initial encounter; W19.XXXA Unspecified fall, initial encounter; K70.10 Alcoholic hepatitis without ascites; K70.30 Alcoholic cirrhosis of liver without ascites; F41.9 Anxiety disorder, unspecified; F32.9 Major depressive disorder, single episode, unspecified; D64.9 Anemia, unspecified; Z87.891 Personal history of nicotine dependence
CPT/HCPCS: 36410; 36415; 70450; 76937; 80048; 80053; 80076; 80320; 82150; 82550; 82805; 83605; 83735; 84100; 85007; 85025; 85027; 87081; 99291

== ENCOUNTER 2021-03-19 07:07 | Inpatient (IN) | payer OTHER ==
[~2021-03-19] VITALS: Ht 182 cm; Wt 96.1 kg
[~2021-03-19 07:07] MED LIST changes: +CETI10TA49 PO; +FLUO40CA PO; +MULT-1104 PO; +OXC5T PO; +POTA10TA6 PO
[2021-03-19] MEDS ORDERED: LACTATED RINGERS 1,000 ML IV ONE ×3 (07:15→12:07)
[2021-03-19] MEDS ORDERED: THIAMINE INJECTION 100 MG, FOLIC ACID INJECTION 1 MG, VITAMIN MULTI INJECTION 10 ML, MA... IV STA ×5 (07:15)
[2021-03-19] MEDS ORDERED: ONDANSETRON 4 MG/2 ML (SDV) Z0FRAN IVP ONE (07:30)
[2021-03-19] MEDS ORDERED: LORazepam INJ 2 MG/ML (ATIVAN) VIAL IVP ONE ×2 (07:30→09:30)
[2021-03-19 07:45] LABS: BASOPHILS # (AUTO) 0.2 10^3/uL (0.0-0.1); BASOPHILS % (AUTO) 1 % (0-10); EOSINOPHILS % (AUTO) 0 % (0-10); HEMATOCRIT 43 % (40-54); HEMOGLOBIN 14.1 g/dL (13.3-17.7); LYMPHOCYTES # (AUTO) 2.8 10^3/uL (1.0-4.0); LYMPHOCYTES % (AUTO) 9 % (12-44); MEAN CORPUSCULAR HEMOGLOBIN 30 pg (25-34); MEAN CORPUSCULAR HGB CONC 33 g/dL (32-36); MEAN CORPUSCULAR VOLUME 90 fL (80-99); MEAN PLATELET VOLUME 8.5 fL (9.0-12.2); MONOCYTES # (AUTO) 2.3 10^3/uL (0.0-1.0); MONOCYTES % (AUTO) 8 % (0-12); NEUTROPHILS # (AUTO) 25.5 10^3/uL (1.8-7.8); NEUTROPHILS % (AUTO) 82 % (42-75); PLATELET COUNT 642 10^3/uL (130-400)
[2021-03-19 07:49] LABS: WHITE BLOOD COUNT 31.1 10^3/uL (4.3-11.0)
[2021-03-19] MEDS ORDERED: CEFEPIME 1 GM/10 ML (MAXIPIME) VIAL ONE (07:54)
[2021-03-19 07:59] LABS: INR 1.1 (0.8-1.4); PROTHROMBIN TIME PATIENT 14.4 SEC (12.2-14.7)
[2021-03-19] MEDS ORDERED: CEFEPIME INJECTION 1,000 MG in WATER (STERILE) FOR INJECTION 10 ML IV ONE ×2 (08:00→09:00)
[2021-03-19] MEDS ORDERED: fentaNYL INJ 100 MCG/2 ML AMP ONE (08:09)
[2021-03-19 08:10] LABS: CHLORIDE 97 MMOL/L (98-107); POTASSIUM 3.3 MMOL/L (3.6-5.0); SODIUM 137 MMOL/L (135-145)
[2021-03-19 08:11] LABS: AMMONIA 46 UMOL/L (11-32)
[2021-03-19 08:12] LABS: CALCIUM 7.5 MG/DL (8.5-10.1)
[2021-03-19 08:13] LABS: GLUCOSE 193 MG/DL (70-105); TOTAL PROTEIN 6.2 GM/DL (6.4-8.2)
[2021-03-19 08:14] LABS: CARBON DIOXIDE 15 MMOL/L (21-32)
[2021-03-19 08:15] LABS: BILIRUBIN,TOTAL 0.5 MG/DL (0.1-1.0)
[2021-03-19 08:16] LABS: ALKALINE PHOSPHATASE 186 U/L (40-136)
[2021-03-19 08:17] LABS: CREATININE SERUM 0.75 MG/DL (0.60-1.30); GFR ESTIMATED > 60
[2021-03-19 08:18] LABS: BUN/CREATININE RATIO 5
[2021-03-19 08:20] LABS: ALANINE AMINOTRANSFERASE 42 U/L (0-55); CREATINE KINASE 1385 U/L (30-200)
--- NOTE | 2021-03-19 08:26 | ED General ---
General Chief Complaint: Substance Abuse Stated Complaint: WITHDRAWAL Source of Information: Patient Exam Limitations: No Limitations History of Present Illness Date Seen by Provider: Mar 19, 2021 Time Seen by Provider: 07:05 Initial Comments Patient ER by private conveyance with chief complaint he is withdrawing. Is been having chills sweating shaking increased work of breathing cough congestion. He has multiple right rib fractures related to recent falls. He was recently discharged in the past 4 days from alcohol withdrawal and started drinking again soon as he got home. His last drink was whiskey, sometime last night. He has allover body pain and would like some Ativan. He denies having any other significant medical history and says he had a work-up outpatient on his liver and was told that everything was okay. Allergies and Home Medications Allergies Coded Allergies: No Known Drug Allergies (Unverified , 10/16/20) Home Medications Aspirin 81 Mg Tablet.dr, 81 MG PO DAILY, (Reported) Last Action: Reviewed Cetirizine HCl 10 Mg Tablet, 10 MG PO DAILY, (Reported) Last Action: Reviewed Fluoxetine HCl 40 Mg Capsule, 40 MG PO DAILY, (Reported) Last Action: Reviewed Multivit-Min/Folic/Vit K/Lycop 1 Each Tablet, 1 EACH PO DAILY, (Reported) Last Action: Reviewed Patient Home Medication List Home Medication List Reviewed: Yes Review of Systems Review of Systems Constitutional: chills, diaphoresis, malaise, weakness EENTM: No ear discharge, No ear pain, No blurred vision Respiratory: cough, phlegm, short of breath Cardiovascular: see HPI; No chest pain, No palpitations Gastrointestinal: abdominal pain, nausea Genitourinary: No discharge, No dysuria Musculoskeletal: No back pain, No joint pain, No joint swelling Skin: No change in color, No pruritus, No rash Psychiatric/Neurological: Denies Anxiety, Denies Depressed All Other Systems Reviewed Negative Unless Noted: Yes Past Djczztt-Gftjtv-Nsoysv Hx Patient Social History Alcohol Use: Regular Use Alcohol Beverage of Choice: Beer, Whiskey, Wine, Other Drug of Choice: marijuana Smoking Status: Current Everyday Smoker Type Used: Cigarettes Former Smoker, Quit: May 04, 2018 2nd Hand Smoke Exposure: No Recent Hopitalizations: Yes Immunizations Up To Date Tetanus Booster (TDap): Less than 5yrs Seasonal Allergies Seasonal Allergies: No Past Medical History Surgeries: Yes (INGUINAL HERNIA REPAIR;BILAT CLAVICLE FX/ORIF;C-SPINE FX/FUSION AGE 17) Abdominal, Orthopedic Respiratory: No Currently Using CPAP: No Currently Using BIPAP: No Cardiac: No Neurological: Yes (HEPATIC ENCEPHALOPATHY) Sexually Transmitted Disease: No HIV/AIDS: No Genitourinary: No Gastrointestinal: Yes (S/P INGUINAL HERNIA REPAIR;HEPATIC ENCEPHALOPATHY) Abdominal Hernia, Liver Disease/Jaundice Musculoskeletal: Yes (C-SPINE FRACTURE /ORIF AGE 17; BILAT CLAVICLE FX/ORIF) Fractures Endocrine: No HEENT: No Loss of Vision: Denies Hearing Impairment: Denies Cancer: No Psychosocial: Yes (SUICIDAL IDEATION, ALCOHOLISM) Anxiety, Depression Integumentary: No Blood Disorders: No Adverse Reaction/Blood Tranf: No Family Medical History Patient reports no known family medical history. Hypertension Physical Exam-Suspected Sepsis Physical Exam Vital Signs Vital Signs - First Documented 03/19/21 03/19/21 03/19/21 07:10 07:25 15:32 Temp 36.4 Pulse 127 Resp 36 B/P (MAP) 145/104 (118) Pulse Ox 94 O2 Delivery Room Air O2 Flow Rate 2.00 FiO2 100 Capillary Refill : Height, Weight, BMI Height: 6'1.00" Weight: 188lbs. 0.0oz. 85.997665ip; 26.50 BMI Method:Stated General Appearance: Anxious, Chronically ill, Moderate Distress Eyes: Bilateral Eye Normal Inspection, Bilateral Eye PERRL, Bilateral Eye EOMI HEENT: PERRL/EOMI, TMs Normal; No Moist Mucous Membranes Neck: Full Range of Motion, Normal Inspection Respiratory: Accessory Muscle Use, Crackles (Bilateral bases), Respiratory Distress Cardiovascular: Regular Rate, Rhythm, Normal Peripheral Pulses, Tachycardia Gastrointestinal: Normal Bowel Sounds, Non Tender, Soft Extremity: Normal Inspection, No Pedal Edema, Slow Capillary Refill (3 seconds) Neurologic/Psychiatric: Alert, Oriented x3, Other (Anxious affect) Skin: normal color, diaphoresis, damp Focused Exam Sepsis Stage: Septic Shock Possible Source: Pulmonary Lactate Level 03/19/21 07:32: Lactic Acid Level 10.27*H 03/19/21 12:29: Lactic Acid Level 6.51*H 03/19/21 14:20: Lactic Acid Level 5.85*H Time of Focused Exam: 11:00 Respiratory: No Accessory Muscle Use, Rales, Respiratory Distress (Mild with oxygen at 8 L he is maintaining sats 94 to 96% and respiratory rate of 22) Cardiovascular: Normal Peripheral Pulses, Tachycardia (110) Capillary Refill: Less Than 3 Seconds Peripheral Pulses: 2+ Radial Pulses (R), 2+ Radial Pulses (L) Skin: normal color, warm/dry Lactic Acid Level Laboratory Tests Test 03/19/21 12:29 03/19/21 14:20 Lactic Acid Level 6.51 MMOL/L (0.50-2.00) *H 5.85 MMOL/L (0.50-2.00) *H Within 3hrs of presentation: Admin fluids, Admin ABX, Blood cultures prior to ABX's, Focus exam, Lactate level Procedures/Interventions Lumen: triple Central Line Procedure: betadine prep (Chlorhexidine), sterile drapes applied, sterile dressing applied Position: internal jugular (R) Anesthesia: Lidocaine Volume Anesthetic (ccs): 3 Complications: none Post Position: sutured, good blood return, position confirmed w/ CXR Risks, benefits and alternatives were discussed with the patient and the patient consented to the procedure. The patient was positioned in the usual format and using the usual sterile garments and drapes the patient was dressed out. The skin was thoroughly cleaned with the supplied chlorhexidine prep. After the prep had dried a sterile drape was placed. The 15 cm 7 [place] triple-lumen catheter was flushed with sterile saline. We used ultrasound guidance to pass the introducer needle into the right internal jugular without difficulty. A guidewire was placed easily without difficulty. No ectopy was seen on the monitor. The supplied 11 blade scalpel was used to make a 2 mm incision at the inferior portion of the introducer needle. The introducer needle was replaced with the dilator. The dilator was taken out and the patient had the central lumen of the triple lumen catheter threaded over the guidewire and placed at 13.5 cm. The guidewire was removed and the triple-lumen catheter was stitched in place using the supplied braided stitch at 2 different points. The catheter withdrew blood and flushed easily. A sterile dressing was placed over the catheter. The patient tolerated the procedure well. A chest x-ray was obtained that demonstrated no pneumothorax and a new interval central catheter over the shadow of the right internal jugular down the superior vena cava and terminating just proximal to the right atria. Date of ETT Placement: Oct 17, 2020 Progress/Results/Core Measures Suspected Sepsis SIRS Temperature: Pulse: Respiratory Rate: Laboratory Tests 03/19/21 07:32: White Blood Count 31.1*H Blood Pressure / Mean: 03/19/21 07:32: Lactic Acid Level 10.27*H 03/19/21 12:29: Lactic Acid Level 6.51*H 03/19/21 14:20: Lactic Acid Level 5.85*H Laboratory Tests 03/19/21 07:32: INR Comment 1.1, Platelet Count 642H 03/19/21 07:37: Creatinine 0.75, Total Bilirubin 0.5 Results/Orders Lab Results Laboratory Tests Test 03/19/21 07:32 03/19/21 07:37 03/19/21 09:36 03/19/21 12:29 Range/Units White Blood Count 31.1 *H 4.3-11.0 10^3/uL Red Blood Count 4.75 4.30-5.52 10^6/uL Hemoglobin 14.1 # 13.3-17.7 g/dL Hematocrit 43 40-54 % Mean Corpuscular Volume 90 80-99 fL Mean Corpuscular Hemoglobin 30 25-34 pg Mean Corpuscular Hemoglobin Concent 33 32-36 g/dL Red Cell Distribution Width 18.8 H 10.0-14.5 % Platelet Count 642 H 130-400 10^3/uL Mean Platelet Volume 8.5 L 9.0-12.2 fL Immature Granulocyte % (Auto) 1 % Neutrophils (%) (Auto) 82 H 42-75 % Lymphocytes (%) (Auto) 9 L 12-44 % Monocytes (%) (Auto) 8 0-12 % Eosinophils (%) (Auto) 0 0-10 % Basophils (%) (Auto) 1 0-10 % Neutrophils # (Auto) 25.5 H 1.8-7.8 10^3/uL Lymphocytes # (Auto) 2.8 1.0-4.0 10^3/uL Monocytes # (Auto) 2.3 H 0.0-1.0 10^3/uL Eosinophils # (Auto) 0.0 0.0-0.3 10^3/uL Basophils # (Auto) 0.2 H 0.0-0.1 10^3/uL Immature Granulocyte # (Auto) 0.3 H 0.0-0.1 10^3/uL Neutrophils % (Manual) 78 % Lymphocytes % (Manual) 8 % Monocytes % (Manual) 4 % Eosinophils % (Manual) 1 % Basophils % (Manual) 0 % Band Neutrophils 9 % Anisocytosis SLIGHT Prothrombin Time 14.4 12.2-14.7 SEC INR Comment 1.1 0.8-1.4 Activated Partial Thromboplast Time 22 L 24-35 SEC Lactic Acid Level 10.27 *H 6.51 *H 0.50-2.00 MMOL/L Sodium Level 137 135-145 MMOL/L Potassium Level 3.3 L 3.6-5.0 MMOL/L Chloride Level 97 L 98-107 MMOL/L Carbon Dioxide Level 15 L 21-32 MMOL/L Anion Gap 25 H 5-14 MMOL/L Blood Urea Nitrogen 4 L 7-18 MG/DL Creatinine 0.75 0.60-1.30 MG/DL Estimat Glomerular Filtration Rate > 60 BUN/Creatinine Ratio 5 Glucose Level 193 H 70-105 MG/DL Calcium Level 7.5 L 8.5-10.1 MG/DL Corrected Calcium 8.3 L 8.5-10.1 MG/DL Total Bilirubin 0.5 0.1-1.0 MG/DL Aspartate Amino Transf (AST/SGOT) 36 H 5-34 U/L Alanine Aminotransferase (ALT/SGPT) 42 0-55 U/L Alkaline Phosphatase 186 H 40-136 U/L Ammonia 46 H 11-32 UMOL/L Total Creatine Kinase 1385 H 30-200 U/L Total Protein 6.2 L 6.4-8.2 GM/DL Albumin 3.0 L 3.2-4.5 GM/DL Serum Alcohol 181 H <10 MG/DL Urine Color YELLOW Urine Clarity CLEAR Urine pH 6.0 5-9 Urine Specific [place] 1.025 H 1.016-1.022 Urine Protein TRACE H NEGATIVE Urine Glucose (UA) 2+ H NEGATIVE Urine Ketones NEGATIVE NEGATIVE Urine Nitrite NEGATIVE NEGATIVE Urine Bilirubin NEGATIVE NEGATIVE Urine Urobilinogen 0.2 < = 1.0 MG/DL Urine Leukocyte Esterase NEGATIVE NEGATIVE Urine RBC (Auto) TRACE-I NEGATIVE Urine RBC 0-2 /HPF Urine WBC RARE /HPF Urine Squamous Epithelial Cells RARE /HPF Urine Crystals NONE /LPF Urine Bacteria NEGATIVE /HPF Urine Casts PRESENT /LPF Urine Hyaline Casts 5-10 H /LPF Urine Mucus SMALL H /LPF Urine Culture Indicated NO Urine Opiates Screen NEGATIVE NEGATIVE Urine Oxycodone Screen NEGATIVE NEGATIVE Urine Methadone Screen NEGATIVE NEGATIVE Urine Propoxyphene Screen NEGATIVE NEGATIVE Urine Barbiturates Screen POSITIVE H NEGATIVE Ur Tricyclic Antidepressants Screen NEGATIVE NEGATIVE Urine Phencyclidine Screen NEGATIVE NEGATIVE Urine Amphetamines Screen NEGATIVE NEGATIVE Urine Methamphetamines Screen NEGATIVE NEGATIVE Urine Benzodiazepines Screen POSITIVE H NEGATIVE Urine Cocaine Screen NEGATIVE NEGATIVE Urine Cannabinoids Screen NEGATIVE NEGATIVE Test 03/19/21 13:58 03/19/21 14:20 Range/Units Blood Gas Puncture Site LT RAD Blood Gas Patient Temperature 36.6 Arterial Blood pH 7.50 H 7.37-7.43 Arterial Blood Partial Pressure CO2 28 L 35-45 MMHG Arterial Blood Partial Pressure O2 58 L 79-93 MMHG Arterial Blood HCO3 22 L 23-27 MMOL/L Arterial Blood Total CO2 22.5 21.0-31.0 MMOL/L Arterial Blood Oxygen Saturation 92 L 94-100 % Arterial Blood Base Excess -1.3 -2.5-2.5 MMOL/L Gautam Test YES-POS Blood Gas Ventilator Setting NO Blood Gas Inspired Oxygen 10 L Lactic Acid Level 5.85 *H 0.50-2.00 MMOL/L My Orders Orders - MARIAJOSE PLASCENCIA Thiamine Injection (Vitamin B-1 Injectio (03/19/21 07:15) Cbc With Automated Diff (03/19/21 07:15) Comprehensive Metabolic Panel (03/19/21 07:15) Ua Culture If Indicated (03/19/21 07:15) Drug Screen Stat (Urine) (03/19/21 07:15) Creatine Kinase (03/19/21 07:15) Alcohol (03/19/21 07:15) Ammonia (03/19/21 07:15) Protime With Inr (03/19/21 07:15) Partial Thromboplastin Time (03/19/21 07:15) Ed Iv/Invasive Line Start (03/19/21 07:15) Lactated Ringers (Lr 1000 Ml Iv Solution (03/19/21 07:15) Lorazepam Injection (Ativan Injection) (03/19/21 07:30) Ondansetron Injection (Zofran Injectio (03/19/21 07:30) Blood Culture (03/19/21 07:23) Chest 1 View, Ap/Pa Only (03/19/21 07:23) Ed Iv/Invasive Line Start (03/19/21 07:23) Ed Iv/Invasive Line Start (03/19/21 07:23) Vital Signs Adult Sepsis Patie Q15M (03/19/21 07:23) O2 (03/19/21 07:23) Remove Rings In Anticipation O (03/19/21 07:23) Lactic Acid Analyzer (03/19/21 07:23) Lactated Ringers (Lr 1000 Ml Iv Solution (03/19/21 07:30) Manual Differential (03/19/21 07:32) Cefepime Injection (Maxipime Injection) (03/19/21 07:54) Cefepime Injection (Maxipime Injection) (03/19/21 08:00) Fentanyl Inj (Sublimaze Injection) (03/19/21 08:09) Cefepime Injection (Maxipime Injection) (03/19/21 09:00) Vancomycin Injection (Vancomycin Injecti (03/19/21 09:00) Lorazepam Injection (Ativan Injection) (03/19/21 09:30) S[place]y Cath (03/19/21 09:23) Lorazepam Injection (Ativan Injection) (03/19/21 09:24) Medications Given in ED Current Medications Medications Dose Ordered Sig/Ernie Route Start Time Stop Time Status Last Admin Dose Admin Cefepime HCl 1000 mg/Sterile Water 10 ml @ 200 mls/hr ONCE ONCE IV 03/19/21 08:00 03/19/21 08:02 DC 03/19/21 08:02 200 MLS/HR Fentanyl Citrate 100 mcg STK-MED ONCE .ROUTE 03/19/21 08:09 03/19/21 08:12 DC 03/19/21 08:28 50 MCG Lactated Ringer's 1,000 ml @ 0 mls/hr Q0M ONCE IV 03/19/21 07:15 03/19/21 07:17 DC 03/19/21 07:54 1,000 MLS/HR Lactated Ringer's 1,000 ml @ 0 mls/hr Q0M ONCE IV 03/19/21 07:30 03/19/21 07:31 DC 03/19/21 07:55 1,000 MLS/HR Lorazepam 2 mg ONCE ONCE IVP 03/19/21 07:30 03/19/21 07:31 DC 03/19/21 07:53 2 MG Lorazepam 2 mg ONCE ONCE IVP 03/19/21 09:30 03/19/21 09:31 DC 03/19/21 09:32 2 MG Ondansetron HCl 8 mg ONCE ONCE IVP 03/19/21 07:30 03/19/21 07:31 DC 03/19/21 07:53 8 MG Vancomycin HCl 1500 mg/Sodium Chloride 500 ml @ 257 mls/hr ONCE ONCE IV 03/19/21 09:00 03/19/21 10:56 DC 03/19/21 09:12 257 MLS/HR Vital Signs/I&O 03/19/21 03/19/21 03/19/21 03/19/21 07:10 07:25 11:02 11:15 Temp 36.4 Pulse 127 116 Resp 36 36 B/P (MAP) 145/104 (118) 117/81 (118) Pulse Ox 94 91 93 O2 Delivery Room Air Nasal Cannula OxyMask OxyMask O2 Flow Rate 2.00 8.00 8.00 03/19/21 03/19/21 03/19/21 03/19/21 11:30 11:47 11:49 12:00 Pulse 114 116 Resp 33 36 B/P (MAP) 120/78 (92) 130/87 (101) Pulse Ox 94 94 O2 Delivery OxyMask OxyMask OxyMask OxyMask O2 Flow Rate 8.00 8.00 10.00 10.00 03/19/21 03/19/21 03/19/21 03/19/21 12:00 12:34 14:30 14:37 Temp 37.0 37.0 Pulse 116 Pulse Ox 94 94 O2 Delivery OxyMask Vapotherm O2 Flow Rate 10.00 15.00 100.00 03/19/21 03/19/21 03/19/21 03/19/21 15:32 15:41 15:51 15:53 Temp 35.6 Pulse Ox 92 93 O2 Delivery Vapotherm Vapotherm Vapotherm O2 Flow Rate 15.00 30.00 30.00 100.00 FiO2 100 100 Capillary Refill : Progress Note #1: Time: 08:24 Progress Note We elected to put a central line in and do a septic work-up as the patient had tachycardia, tachypnea and congestion auscultated in his lungs bilaterally. Concern for pneumonia with his history of recent rib fractures and alcoholism. Cefepime was called for as well as blood cultures. 3 L of fluid including a banana bag were ordered which is greater than 30 mL/kg. He has poor peripheral vascular access so a central line was used. We noted him to have exquisitely flaccid, collapsed internal jugular on ultrasound on inspiration. Progress Note #2: Time: 09:02 Progress Note Patient has significant rhabdomyolysis, but has a good blood pressure. Cefepime vancomycin and a banana bag initiated. Very poor prognosis we will seek ICU admission. Diagnostic Imaging Diagonstic Imaging: Xray Plain Films/CT/US/NM/MRI: chest Comments [facility] [place], [place] NAME: JULITO FLOREZ [facility] REC#: [id number] PT STATUS: REG ER : 1960 PHYSICIAN: MARIAJOSE PLASCENCIA MD ADMIT DATE: 03/19/21/ER Draft Date of Exam:03/19/21 CHEST 1 VIEW, AP/PA ONLY INDICATION: Central line placement. TIME OF EXAM: 8:19 AM. COMPARISON: 10/24/2020. FINDINGS: The right IJ line has its tip overlying the SVC. No pneumothorax is identified. Right-sided 5th and 6th posterior rib fractures are noted. There also appear to be left-sided approximately 3rd, 4th, and 5th posterolateral rib fractures. There is some infiltrate in the left base as well as a small left effusion. There may be trace pleural fluid on the right. IMPRESSION: 1. Right-sided line placement with the tip overlying the SVC. No pneumothorax is seen. 2. Bilateral rib fractures. There is some infiltrate in the left base as well as trace bilateral effusions. Dictated on workstation # [id number] Dict: 03/19/21829 Trans: 03/19/21 [id number] Interpreted by: FRANKIE FAROOQ MD Electronically signed by: Reviewed: Reviewed by Me Departure Communication (Admissions) Time/Spoke to Admitting Phy: 09:00 Discussed the case with Dr. Haro and she agrees to admit the patient to the ICU for septic shock with broad-spectrum antibiotic. Called to give report to clerical grader eICU however they were unavailable as they were rounding. Impression Primary Impression: Septic shock Additional Impressions: Pneumonia Qualified Codes: J18.9 - Pneumonia, unspecified organism Alcohol withdrawal Qualified Codes: F10.230 - Alcohol dependence with withdrawal, uncomplicated Rhabdomyolysis Qualified Codes: M62.82 - Rhabdomyolysis Disposition: ADMITTED INPATIENT Condition: Critical Admissions Decision to Admit Reason: Admit from ER (General) Decision to Admit/Date: Mar 19, 2021 Time/Decision to Admit Time: 09:00 Departure-Patient Inst. Referrals: [facility] (PCP) Primary Care Physician AARON REEVES APRN (Family) Primary Care Physician Patient Instructions: ALCOHOL AND SUBSTANCE ABUSE MARIAJOSE PLASCENCIA Mar 19, 2021 08:26
--- NOTE | 2021-03-19 08:35 | Diagnostic Imaging Report ---
INDICATION: Central line placement. TIME OF EXAM: 8:19 AM. COMPARISON: 10/24/2020. FINDINGS: The right IJ line has its tip overlying the SVC. No pneumothorax is identified. Right-sided 5th and 6th posterior rib fractures are noted. There also appear to be left-sided approximately 3rd, 4th, and 5th posterolateral rib fractures. There is some infiltrate in the left base as well as a small left effusion. There may be trace pleural fluid on the right. IMPRESSION: 1. Right-sided line placement with the tip overlying the SVC. No pneumothorax is seen. 2. Bilateral rib fractures. There is some infiltrate in the left base as well as trace bilateral effusions. Dictated by: Dictated on workstation # [id number]
[2021-03-19 08:38] LABS: ANISOCYTOSIS SLIGHT; BAND NEUTROPHILS 9 %; BASOPHILS % (MANUAL) 0 %; EOSINOPHILS % (MANUAL) 1 %; LYMPHOCYTES % (MANUAL) 8 %; MONOCYTES % (MANUAL) 4 %; NEUTROPHILS % (MANUAL) 78 %
[2021-03-19] MEDS ORDERED: VANCOMYCIN INJECTION 1,500 MG in NS IV 500 ML 500 ML IV ONE (09:00)
[2021-03-19] MEDS ORDERED: LORazepam INJ 2 MG/ML (ATIVAN) VIAL ONE ×2 (09:24→12:06)
[2021-03-19 09:52] LABS: BILIRUBIN,URINE NEGATIVE (NEGATIVE); CLARITY,URINE CLEAR; COLOR,URINE YELLOW; GLUCOSE, URINE (UA) 2+ (NEGATIVE); KETONES,URINE NEGATIVE (NEGATIVE); LEUKOCYTE ESTERASE ,URINE NEGATIVE (NEGATIVE); NITRITE,URINE NEGATIVE (NEGATIVE); PROTEIN,URINE TRACE (NEGATIVE)
[2021-03-19 09:55] LABS: AMPHETAMINE SCREEN, URINE NEGATIVE (NEGATIVE); BARBITURATE SCREEN URINE POSITIVE (NEGATIVE); BENZODIAZEPINES SCREEN URINE POSITIVE (NEGATIVE); CANNABINOID SCREEN, URINE NEGATIVE (NEGATIVE); COCAINE SCREEN URINE NEGATIVE (NEGATIVE); METHADONE STAT NEGATIVE (NEGATIVE); METHAMPHETAMINE SCREEN URINE S NEGATIVE (NEGATIVE); OPIATE SCREEN URINE NEGATIVE (NEGATIVE); OXYCODONE STAT NEGATIVE (NEGATIVE); PROPOXYPHENE STAT NEGATIVE (NEGATIVE); TRICYCLIC ANTIDEPRESSANTS SCRE NEGATIVE (NEGATIVE)
[2021-03-19] MEDS ORDERED: VANCOMYCIN 1250 MG/NS 250 ML IVPB IV SCH ×2 (10:00)
[2021-03-19 10:03] LABS: BACTERIA,URINE NEGATIVE /HPF; RBC,URINE 0-2 /HPF; SQUAMOUS EPITHELIAL CELL,UR RARE /HPF; WBC,URINE RARE /HPF
--- NOTE | 2021-03-19 11:53 | Tele-ICU Progress Note ---
Subjective Date Seen by a Provider: Mar 19, 2021 Time Seen by a Provider: 11:50 Sepsis Event Evaluation Height, Weight, BMI Height: 6'1.00" Weight: 188lbs. 0.0oz. 85.046083ej; 24.45 BMI Method:Stated Focused Exam Lactate Level 03/19/21 07:32: Lactic Acid Level 10.27*H Exam Exam Patient acknowledged, consented, and participated in this virtual visit which was conducted using real time audio/video Vital Signs Date Time Temp Pulse Resp B/P (MAP) Pulse Ox O2 Delivery O2 Flow Rate FiO2 03/19/21 07:25 91 Nasal Cannula 2.00 03/19/21 07:10 36.4 127 36 145/104 (118) 94 Room Air Height & Weight Height: 6'1.00" Weight: 188lbs. 0.0oz. 85.332489ri; 24.45 BMI Method:Stated General Appearance: Anxious, Mild Distress, Other Respiratory: Lungs Clear Cardiovascular: Tachycardia Capillary Refill: Less Than 3 Seconds Gastrointestinal: normal bowel sounds, non tender Results Lab Laboratory Tests 03/19/21 07:32 03/19/21 07:37 Assessment/Plan Assessment/Plan eICU admit note 60 yo M, just discharged for EtOH withdrawal, stared drinking again and comes back again in EtOH withdrawal. Hx of recent rib Fx, c/o diffse body pain, Has HR 127, BP 145/101 LA is 10, WBC 31, zhn 14-probably dehydrated, CK 1385, ammonia 46, ETOH level 181 Started on IV LR, IV Ativan, IV Vanco/Cefepime Had central line place due to poor venous access, CXR did not show PMNTX, infiltrate in LLL, has bilateral rib Fx Has received 3 l IVF, will need to follow closely, repeat CK, Lactate CBC IV Ativan, PRN Cristo Lozano MD Critical Care: Critically Ill Patient Time spent with patient (mins): 10 PAT LOZANO MD Mar 19, 2021 11:53
[2021-03-19] MEDS ORDERED: ONDANSETRON 4 MG/2 ML (SDV) Z0FRAN IV PRN ×2 (12:15→12:45)
[2021-03-19] MEDS ORDERED: CATHETER FLUSH 10 ML SYR IV PRN ×2 (12:30→14:00)
[2021-03-19] MEDS ORDERED: EPINEPHrine 1 MG INJECTION 4 MG in NS (IVPB) 248 ML IV SCH (12:30)
[2021-03-19] MEDS: LACTATED RINGERS 1,000 ML IV SCH ×2 (12:32→18:08)
[2021-03-19] MEDS: fentaNYL INJ 100 MCG/2 ML AMP IV PRN ×3 (12:37→20:01)
[2021-03-19] MEDS ORDERED: LORazepam INJ 2 MG/ML (ATIVAN) VIAL IM/IV PRN (12:45)
[2021-03-19] MEDS ORDERED: ANTACID SUSP 30 ML UDC (MYLANTA) PO PRN (12:45)
[2021-03-19] MEDS ORDERED: ONDANSETRON 4 MG (ZOFRAN) ORAL DISSOLVE TAB SL PRN (12:45)
[2021-03-19] MEDS ORDERED: SENNA W/DOCUSATE (SENOKOT S) TABLET PO PRN (12:45)
[2021-03-19] MEDS ORDERED: D5 1/2 NS 1000 ML IV SOLUTION 1,000 ML IV PRN (12:45)
[2021-03-19] MEDS ORDERED: 1/2 NS IV SOLUTION 1,000 ML IV PRN (12:45)
[2021-03-19] MEDS: NOREPINEPHRINE 8 MG/250 ML 250 ML IV SCH (12:46)
[2021-03-19] MEDS: VASOPRESSIN INJECTION 20 UNIT in NS (IVPB) 100 ML IV SCH ×2 (12:46→21:08)
--- NOTE | 2021-03-19 13:45 | History & Physical ---
HPI History of Present Illness: 60 yo male came to ER due to withdrawal symptoms that started last night. He was recently discharged from the hospital for the same. He states his last drink was yesterday 03/18 at about 3 pm. Last night he had chills, body aches, sweatiness, nausea and anxiety. He has had some recent falls and rib fractures as well. He has felt that his chest was congested since last night. No sore throat or nasal congestion. Has had diarrhea for about a week. Denies blood in stool, denies vomiting, but has had dry heaves. Source: patient, family Date seen by provider: Mar 19, 2021 Time Seen by Provider: 13:20 Attending Physician Shy Haro MD [facility] Consult Date of Admission Mar 19, 2021 at 10:30 Home Medications Home Medications Reviewed patient Home Medication Reconciliation performed by pharmacy medication reconciliations circuit board repair technician and/or nursing. Patients Allergies have been reviewed. Allergies Coded Allergies: No Known Drug Allergies (Unverified , 10/16/20) ANM-Wjrfow-Icvfno Hx Patient Social History Drug of Choice: marijuana Smoking Status: Former Smoker 2nd Hand Smoke Exposure: No Recent Hopitalizations: Yes Alcohol Use?: Yes Have you traveled recently?: No Immunizations Up To Date Tetanus Booster (TDap): Less than 5yrs Past Medical History PMHx: Alcoholism Cirrhosis SurgHx: Neck/back fracture surgery Family Medical History Significant Family History: Hypertension Review of Systems (CHC) Constitutional: chills, diaphoresis, malaise EENTM: No nose congestion Respiratory: No cough; phlegm, short of breath Cardiovascular: No chest pain Gastrointestinal: No abdominal pain; diarrhea, loss of appetite, nausea; No vomiting Genitourinary: No decreased output, No dysuria Musculoskeletal: No joint pain; muscle pain Skin: No rash Psychiatric/Neurological: Anxiety Reviewed Test Results Reviewed Test Results Lab Laboratory Tests Test 03/19/21 07:32 03/19/21 07:37 03/19/21 09:36 03/19/21 12:29 Range/Units White Blood Count 31.1 *H 4.3-11.0 10^3/uL Red Blood Count 4.75 4.30-5.52 10^6/uL Hemoglobin 14.1 # 13.3-17.7 g/dL Hematocrit 43 40-54 % Mean Corpuscular Volume 90 80-99 fL Mean Corpuscular Hemoglobin 30 25-34 pg Mean Corpuscular Hemoglobin Concent 33 32-36 g/dL Red Cell Distribution Width 18.8 H 10.0-14.5 % Platelet Count 642 H 130-400 10^3/uL Mean Platelet Volume 8.5 L 9.0-12.2 fL Immature Granulocyte % (Auto) 1 % Neutrophils (%) (Auto) 82 H 42-75 % Lymphocytes (%) (Auto) 9 L 12-44 % Monocytes (%) (Auto) 8 0-12 % Eosinophils (%) (Auto) 0 0-10 % Basophils (%) (Auto) 1 0-10 % Neutrophils # (Auto) 25.5 H 1.8-7.8 10^3/uL Lymphocytes # (Auto) 2.8 1.0-4.0 10^3/uL Monocytes # (Auto) 2.3 H 0.0-1.0 10^3/uL Eosinophils # (Auto) 0.0 0.0-0.3 10^3/uL Basophils # (Auto) 0.2 H 0.0-0.1 10^3/uL Immature Granulocyte # (Auto) 0.3 H 0.0-0.1 10^3/uL Neutrophils % (Manual) 78 % Lymphocytes % (Manual) 8 % Monocytes % (Manual) 4 % Eosinophils % (Manual) 1 % Basophils % (Manual) 0 % Band Neutrophils 9 % Anisocytosis SLIGHT Prothrombin Time 14.4 12.2-14.7 SEC INR Comment 1.1 0.8-1.4 Activated Partial Thromboplast Time 22 L 24-35 SEC Lactic Acid Level 10.27 *H 6.51 *H 0.50-2.00 MMOL/L Sodium Level 137 135-145 MMOL/L Potassium Level 3.3 L 3.6-5.0 MMOL/L Chloride Level 97 L 98-107 MMOL/L Carbon Dioxide Level 15 L 21-32 MMOL/L Anion Gap 25 H 5-14 MMOL/L Blood Urea Nitrogen 4 L 7-18 MG/DL Creatinine 0.75 0.60-1.30 MG/DL Estimat Glomerular Filtration Rate > 60 BUN/Creatinine Ratio 5 Glucose Level 193 H 70-105 MG/DL Calcium Level 7.5 L 8.5-10.1 MG/DL Corrected Calcium 8.3 L 8.5-10.1 MG/DL Total Bilirubin 0.5 0.1-1.0 MG/DL Aspartate Amino Transf (AST/SGOT) 36 H 5-34 U/L Alanine Aminotransferase (ALT/SGPT) 42 0-55 U/L Alkaline Phosphatase 186 H 40-136 U/L Ammonia 46 H 11-32 UMOL/L Total Creatine Kinase 1385 H 30-200 U/L Total Protein 6.2 L 6.4-8.2 GM/DL Albumin 3.0 L 3.2-4.5 GM/DL Serum Alcohol 181 H <10 MG/DL Urine Color YELLOW Urine Clarity CLEAR Urine pH 6.0 5-9 Urine Specific [place] 1.025 H 1.016-1.022 Urine Protein TRACE H NEGATIVE Urine Glucose (UA) 2+ H NEGATIVE Urine Ketones NEGATIVE NEGATIVE Urine Nitrite NEGATIVE NEGATIVE Urine Bilirubin NEGATIVE NEGATIVE Urine Urobilinogen 0.2 < = 1.0 MG/DL Urine Leukocyte Esterase NEGATIVE NEGATIVE Urine RBC (Auto) TRACE-I NEGATIVE Urine RBC 0-2 /HPF Urine WBC RARE /HPF Urine Squamous Epithelial Cells RARE /HPF Urine Crystals NONE /LPF Urine Bacteria NEGATIVE /HPF Urine Casts PRESENT /LPF Urine Hyaline Casts 5-10 H /LPF Urine Mucus SMALL H /LPF Urine Culture Indicated NO Urine Opiates Screen NEGATIVE NEGATIVE Urine Oxycodone Screen NEGATIVE NEGATIVE Urine Methadone Screen NEGATIVE NEGATIVE Urine Propoxyphene Screen NEGATIVE NEGATIVE Urine Barbiturates Screen POSITIVE H NEGATIVE Ur Tricyclic Antidepressants Screen NEGATIVE NEGATIVE Urine Phencyclidine Screen NEGATIVE NEGATIVE Urine Amphetamines Screen NEGATIVE NEGATIVE Urine Methamphetamines Screen NEGATIVE NEGATIVE Urine Benzodiazepines Screen POSITIVE H NEGATIVE Urine Cocaine Screen NEGATIVE NEGATIVE Urine Cannabinoids Screen NEGATIVE NEGATIVE Radiology CXR 03/19: IMPRESSION: 1. Right-sided line placement with the tip overlying the SVC. No pneumothorax is seen. 2. Bilateral rib fractures. There is some infiltrate in the left base as well as trace bilateral effusions. Physical Exam-(CHC) Physical Exam Vital Signs VS - Last 72 Hours, by Label 03/19/21 03/19/21 03/19/21 03/19/21 07:10 07:25 11:02 11:15 Temp 36.4 Pulse 127 116 Resp 36 36 B/P (MAP) 145/104 (118) 117/81 (118) Pulse Ox 94 91 93 O2 Delivery Room Air Nasal Cannula OxyMask OxyMask O2 Flow Rate 2.00 8.00 8.00 03/19/21 03/19/21 03/19/21 03/19/21 11:30 11:30 11:47 11:49 Pulse 114 114 Resp 33 33 B/P (MAP) 120/78 (92) 120/78 (92) Pulse Ox 94 94 O2 Delivery OxyMask OxyMask OxyMask OxyMask O2 Flow Rate 8.00 8.00 8.00 10.00 03/19/21 03/19/21 03/19/21 03/19/21 12:00 12:00 12:34 13:00 Temp 37.0 Pulse 116 114 Resp 36 28 B/P (MAP) 130/87 (101) 120/80 (93) Pulse Ox 94 94 92 O2 Delivery OxyMask OxyMask OxyMask O2 Flow Rate 10.00 10.00 8.00 03/19/21 03/19/21 03/19/21 03/19/21 14:00 14:30 14:37 15:00 Temp 37.0 Pulse 116 116 118 Resp 28 27 B/P (MAP) 129/95 (106) 134/82 (99) Pulse Ox 91 94 91 O2 Delivery OxyMask Vapotherm Vapotherm O2 Flow Rate 8.00 15.00 15.00 100.00 100.00 03/19/21 03/19/21 03/19/21 03/19/21 15:32 15:41 15:51 15:53 Temp 35.6 Pulse Ox 92 93 O2 Delivery Vapotherm Vapotherm Vapotherm O2 Flow Rate 15.00 30.00 30.00 100.00 FiO2 100 100 03/19/21 03/19/21 16:00 17:00 Pulse 112 110 Resp 22 24 B/P (MAP) 133/90 (104) 141/85 (103) Pulse Ox 92 96 O2 Delivery Vapotherm Vapotherm O2 Flow Rate 30.00 30.00 100.00 100.00 Capillary Refill : Less Than 3 Seconds General Appearance: mild distress HEENT: PERRL/EOMI Respiratory: rales; No wheezing; other (tachypnea) Cardiovascular: no murmur, tachycardia Gastrointestinal: normal bowel sounds, non tender, distended Extremities: no pedal edema Neurologic/Psychiatric: hand tile 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 Check abdominal CT with diarrhea and bloating and history of cirrhosis. (2) Left lower lobe pneumonia Status: Acute Assessment & Plan: Cefepime and vancomycin. (3) Acute respiratory failure Status: Acute Assessment & Plan: On oxymask, will try vapotherm. Has required intubation in past. Qualifiers: Qualified Codes: J96.01 - Acute respiratory failure with hypoxia (4) Multiple rib fractures Status: Chronic (5) Rhabdomyolysis Status: Acute Assessment & Plan: Elevated CK, but creatinine okay, IVF and monitor. Qualifiers: Qualified Codes: M62.82 - Rhabdomyolysis (6) Alcohol withdrawal Status: Acute Assessment & Plan: Ativan per CIWA protocol. Qualifiers: Qualified Codes: F10.230 - Alcohol dependence with withdrawal, uncomplicated (7) High anion gap metabolic acidosis Status: Acute Assessment & Plan: Suspect alcoholic ketoacidosis. Check ABG. Cr okay, continue IVF. (8) DVT prophylaxis Status: Acute Assessment & Plan: Enoxaparin SHY HARO MD Mar 19, 2021 13:45
[2021-03-19] MEDS ORDERED: HOLD METFORMIN - RECEIVED CONTRAST 20 ML VIAL IV SCH (14:00)
[2021-03-19] MEDS ORDERED: IOHEXOL 350 MG/ML 100 ML (OMNIPAQUE 350) VIAL IV ONE (14:00)
[2021-03-19] MEDS ORDERED: NS 100 ML (IVPB) BAG IV ONE (14:00)
[2021-03-19 14:08] LABS: ABG BASE EXCESS -1.3 MMOL/L (-2.5-2.5); ABG OXYGEN SATURATION 92 % (94-100); ABG PCO2 28 MMHG (35-45); ABG PO2 58 MMHG (79-93); ABG TCO2 22.5 MMOL/L (21.0-31.0)
[2021-03-19 14:10] LABS: ALLENS TEST YES-POS; INSPIRED O2 10 L; PATIENT TEMP 36.6; VENTILATOR NO
[2021-03-19] MEDS: CEFEPIME 1,000 MG/SWFI 10 ML IV PUSH IV SCH ×4 (14:19→19:36)
[2021-03-19] MEDS: LORazepam INJ 2 MG/ML (ATIVAN) VIAL IV PRN ×5 (14:28→21:08)
[2021-03-19 14:37] VITALS: BP 130/87
[2021-03-19] MEDS ORDERED: RT-ALBUTEROL/IPRATROPIUM 3 ML (DUONEB) VIAL INH PRN (15:00)
[2021-03-19] MEDS: RT-ALBUTEROL/IPRATROPIUM 3 ML (DUONEB) VIAL INH SCH ×2 (15:31→20:08)
--- NOTE | 2021-03-19 17:15 | Diagnostic Imaging Report ---
EXAMINATION: CT abdomen with intravenous contrast. TECHNIQUE: Multiple contiguous axial images were obtained through the abdomen after the administration of intravenous contrast. All CT scans use one or more of the following dose optimizing techniques: automated exposure control, MA and/or KvP adjustment based on patient size and exam type or iterative reconstruction. HISTORY: Abdominal pain and bloating, cirrhosis. COMPARISON: None available. FINDINGS: Evaluation is somewhat limited secondary to patient respiratory motion throughout the exam. Lung bases: There are moderate bilateral pleural effusions with adjacent atelectasis or consolidation in the lung bases. Solid organs: The liver is normal without focal lesion. The gallbladder is normal. There is no biliary ductal dilation. Pancreas is normal. Spleen is normal. Adrenal glands are normal. The kidneys are normal without hydronephrosis. Bowel: No bowel obstruction. Peritoneum: There is mild ascites. No suspicious lymphadenopathy. Vasculature: Calcification of the aorta without aneurysm. Musculoskeletal: Degenerative changes of the spine without suspicious osseous lesion or compression fracture. There are multiple bilateral rib fractures, many of which appear displaced and acute. A few of the fractures demonstrate some healing suggesting subacute fractures. IMPRESSION: 1. No acute abnormality in the abdomen. 2. Mild ascites. 3. Moderate bilateral pleural effusions with adjacent atelectasis or pneumonia. 4. Multiple bilateral rib fractures, many of which are displaced and appear acute. Recommend correlation with any recent history of trauma. Dictated by: Dictated on workstation # [id number]
[2021-03-19] MEDS: ENOXAPARIN 40 MG/0.4 ML (LOVENOX) SYR SQ SCH (18:07)
[2021-03-19] MEDS: POTASSIUM CL 10MEQ/50ML IVPB 50 ML IV SCH ×4 (18:36→20:39)
[2021-03-19] MEDS: MAGNESIUM OXIDE (MAG-OX)400 MG TAB PO SCH (21:08)
[2021-03-19] MEDS: VANCOMYCIN 1250 MG/NS 250 ML IVPB IV SCH ×2 (21:16)
[2021-03-20] MEDS: CEFEPIME 1,000 MG/SWFI 10 ML IV PUSH IV SCH ×8 (01:22→21:28)
[2021-03-20] MEDS: LACTATED RINGERS 1,000 ML IV SCH ×4 (01:23→19:18)
[2021-03-20] MEDS: RT-ALBUTEROL/IPRATROPIUM 3 ML (DUONEB) VIAL INH SCH ×4 (02:08→21:43)
[2021-03-20] MEDS: LORazepam INJ 2 MG/ML (ATIVAN) VIAL IV PRN ×9 (02:27→22:59)
[2021-03-20] MEDS: fentaNYL INJ 100 MCG/2 ML AMP IV PRN ×5 (04:19→22:59)
[2021-03-20 04:27] LABS: BASOPHILS # (AUTO) 0.1 10^3/uL (0.0-0.1); BASOPHILS % (AUTO) 1 % (0-10); EOSINOPHILS % (AUTO) 0 % (0-10); HEMATOCRIT 33 % (40-54); LYMPHOCYTES # (AUTO) 1.9 10^3/uL (1.0-4.0); LYMPHOCYTES % (AUTO) 11 % (12-44); MEAN CORPUSCULAR HEMOGLOBIN 31 pg (25-34); MEAN CORPUSCULAR HGB CONC 34 g/dL (32-36); MEAN CORPUSCULAR VOLUME 90 fL (80-99); MEAN PLATELET VOLUME 8.4 fL (9.0-12.2); MONOCYTES % (AUTO) 6 % (0-12); NEUTROPHILS # (AUTO) 14.3 10^3/uL (1.8-7.8); NEUTROPHILS % (AUTO) 82 % (42-75); PLATELET COUNT 322 10^3/uL (130-400); WHITE BLOOD COUNT 17.5 10^3/uL (4.3-11.0)
[2021-03-20 05:00] LABS: CHLORIDE 96 MMOL/L (98-107); POTASSIUM 4.1 MMOL/L (3.6-5.0); SODIUM 132 MMOL/L (135-145)
[2021-03-20 05:01] LABS: CALCIUM 7.5 MG/DL (8.5-10.1); GLUCOSE 124 MG/DL (70-105)
[2021-03-20 05:03] LABS: CARBON DIOXIDE 24 MMOL/L (21-32)
[2021-03-20 05:05] LABS: CREATININE SERUM 0.66 MG/DL (0.60-1.30); GFR ESTIMATED > 60; PHOSPHORUS 2.9 MG/DL (2.3-4.7)
[2021-03-20 05:06] LABS: BUN/CREATININE RATIO 11
[2021-03-20 05:07] LABS: MAGNESIUM 1.9 MG/DL (1.6-2.4)
[2021-03-20] MEDS: VASOPRESSIN INJECTION 20 UNIT in NS (IVPB) 100 ML IV SCH ×2 (05:13→13:30)
[2021-03-20] MEDS: NOREPINEPHRINE 8 MG/250 ML 250 ML IV SCH (05:13)
[2021-03-20] MEDS: MULTIVIT W/MINERALS TAB (THERAGRAN M) PO SCH (05:47)
[2021-03-20] MEDS: THIAMINE 100 MG (VITAMIN B-1) TAB PO SCH (05:47)
[2021-03-20] MEDS ORDERED: KCL 20 MEQ TAB (K-DUR) PO SCH (06:00)
[2021-03-20] MEDS ORDERED: MAGNESIUM 1 GM/100 ML IVPB 100 ML IV SCH (06:00)
[2021-03-20] MEDS ORDERED: POTASSIUM CL 10MEQ/50ML IVPB 50 ML IV SCH (06:00)
[2021-03-20] MEDS: FOLIC ACID 1 MG TAB PO SCH (07:55)
[2021-03-20] MEDS: MAGNESIUM OXIDE (MAG-OX)400 MG TAB PO SCH ×2 (07:55→21:28)
[2021-03-20] MEDS: FLUoxetine HCL 20 MG (PROzac) CAP PO SCH (07:55)
--- NOTE | 2021-03-20 08:41 | Diagnostic Imaging Report ---
INDICATION: Septic shock and pneumonia. Time of exam: 3:31 AM Correlation is made with prior chest from one day earlier. Bilateral perihilar and bibasilar infiltrates with moderate bilateral effusions are noted. These have increased since yesterday. There is no pneumothorax identified. IMPRESSION: Increasing bilateral infiltrates and pleural effusions when compared with examination one day earlier. Dictated by: Dictated on workstation # [id number]
[2021-03-20] MEDS ORDERED: NON-FORMULARY MEDICATION 1 EA EA (Fluoxetine HCl 40 MG) PO SCH (09:00)
[2021-03-20] MEDS: HYDROcodone/APAP 5 MG/325 MG (LORTAB) TAB PO PRN ×2 (10:00→23:42)
[2021-03-20] MEDS: VANCOMYCIN 1250 MG/NS 250 ML IVPB IV SCH ×2 (10:09)
--- NOTE | 2021-03-20 10:17 | Tele-ICU Progress Note ---
Subjective Date Seen by a Provider: Mar 20, 2021 Time Seen by a Provider: 10:16 Sepsis Event Evaluation Height, Weight, BMI Height: 6'1.00" Weight: 188lbs. 0.0oz. 85.179656qm; 24.45 BMI Method:Stated Focused Exam Lactate Level 03/20/21 00:03: Lactic Acid Level 2.51*H 03/20/21 04:17: Lactic Acid Level 3.33*H 03/20/21 08:10: Lactic Acid Level 2.63*H Time of Focused Exam: 11:00 Lactic Acid Level Laboratory Tests Test 03/20/21 08:10 Lactic Acid Level 2.63 MMOL/L (0.50-2.00) *H Exam Exam Patient acknowledged, consented, and participated in this virtual visit which was conducted using real time audio/video Vital Signs Date Time Temp Pulse Resp B/P (MAP) Pulse Ox O2 Delivery O2 Flow Rate FiO2 03/20/21 08:04 36.5 03/20/21 07:00 90 03/20/21 06:45 93 Vapotherm 30.00 50 03/20/21 06:00 87 17 125/89 (101) 95 Vapotherm 30.00 60.00 03/20/21 05:00 92 21 145/82 (103) 96 Vapotherm 30.00 60.00 03/20/21 04:00 37.0 03/20/21 04:00 94 26 149/83 (105) 93 Vapotherm 30.00 60.00 03/20/21 04:00 94 Vapotherm 30.00 60 03/20/21 03:00 93 23 124/82 (96) 94 Vapotherm 30.00 60.00 03/20/21 02:08 93 Vapotherm 30.00 60 03/20/21 02:00 95 20 139/84 (102) 92 Vapotherm 30.00 60.00 03/20/21 01:21 94 Vapotherm 30.00 60.00 03/20/21 01:00 93 03/20/21 01:00 91 20 125/77 (93) 94 Vapotherm 30.00 70.00 03/20/21 00:15 96 Vapotherm 30.00 70.00 03/20/21 00:00 92 21 120/85 (97) 97 Vapotherm 30.00 80.00 6/24/21 00:00 36.8 03/19/21 23:59 98 Vapotherm 30.00 80 03/19/21 23:00 93 25 138/88 (105) 97 Vapotherm 30.00 80.00 03/19/21 22:45 96 Vapotherm 30.00 80.00 03/19/21 22:00 98 25 138/88 (105) 98 Vapotherm 30.00 90.00 03/19/21 21:19 97 Vapotherm 30.00 90.00 03/19/21 21:00 100 25 135/80 (98) 97 Vapotherm 30.00 100.00 03/19/21 20:08 97 Vapotherm 30.00 100 03/19/21 20:00 98 Vapotherm 30.00 100 03/19/21 20:00 107 17 137/87 (104) 98 Vapotherm 30.00 100.00 03/19/21 19:53 36.4 03/19/21 19:00 109 36 135/91 (106) 98 Vapotherm 30.00 100.00 03/19/21 19:00 106 03/19/21 18:00 108 28 139/85 (103) 98 Vapotherm 30.00 100.00 03/19/21 17:00 110 24 141/85 (103) 96 Vapotherm 30.00 100.00 03/19/21 16:00 112 22 133/90 (104) 92 Vapotherm 30.00 100.00 03/19/21 15:53 93 Vapotherm 30.00 100 03/19/21 15:51 35.6 03/19/21 15:41 Vapotherm 30.00 100.00 03/19/21 15:32 92 Vapotherm 15.00 100 03/19/21 15:00 118 27 134/82 (99) 91 Vapotherm 15.00 100.00 03/19/21 14:37 37.0 116 94 03/19/21 14:30 Vapotherm 15.00 100.00 03/19/21 14:00 116 28 129/95 (106) 91 OxyMask 8.00 03/19/21 13:00 114 28 120/80 (93) 92 OxyMask 8.00 03/19/21 12:49 116 03/19/21 12:34 37.0 03/19/21 12:00 94 OxyMask 10.00 03/19/21 12:00 116 36 130/87 (101) 94 OxyMask 10.00 03/19/21 11:49 OxyMask 10.00 03/19/21 11:47 OxyMask 8.00 03/19/21 11:30 114 33 120/78 (92) 94 OxyMask 8.00 03/19/21 11:30 114 33 120/78 (92) 94 OxyMask 8.00 03/19/21 11:15 OxyMask 8.00 03/19/21 11:02 116 36 117/81 (118) 93 OxyMask 8.00 I & O 03/20/21 07:00 Intake Total 8247.7 ml Output Total 1175 ml Balance 7072.7 ml Height & Weight Height: 6'1.00" Weight: 188lbs. 0.0oz. 85.387327sw; 24.45 BMI Method:Stated General Appearance: Anxious, Chronically ill, Moderate Distress HEENT: PERRL/EOMI, TMs Normal; No Moist Mucous Membranes Neck: Full Range of Motion, Normal Inspection Respiratory: No Accessory Muscle Use, Rales, Respiratory Distress (Mild with oxygen at 8 L he is maintaining sats 94 to 96% and respiratory rate of 22) Cardiovascular: Normal Peripheral Pulses, Tachycardia (110) Capillary Refill: Less Than 3 Seconds Peripheral Pulses: 2+ Radial Pulses (R), 2+ Radial Pulses (L) Gastrointestinal: normal bowel sounds, non tender, distended Extremity: Normal Inspection, No Pedal Edema, Slow Capillary Refill (3 seconds) Neurologic/Psychiatric: Alert, Oriented x3, Other (Anxious affect) Results Lab Laboratory Tests 03/19/21 07:32 03/19/21 07:37 03/20/21 04:17 Assessment/Plan Assessment/Plan (Tele-ICU Physician , Progress Note ) Available chart/ vitals / labs / Images reviewed Video assessment done using teleICU camera, rest of exam as per RN Discussed with RN Events overnight : did well , no events Afebrile hemodynamically stable, no pressors, Drips: NS As per RN exam : clear lungs , no complaisn , no edema Consultants: Hospital course: 03/19 60 yo M, just discharged for EtOH withdrawal, stared drinking again and c omes back again in EtOH withdrawal. 03/20 - vapotherm 50 %30 L A/P Acute hypoxic resp failure - on Vapoterm 50% 30 l - cxr with bilat infiltrates / effusions - will try to wean off of , minitor volume status , cont ABX, repeat cxrr am LLL PNA , suspected - abx started 03/19 - cefepime and vanco Elevated lactate - -ct abd 03/19 - neg for ischemia - follow with hydration Anemia - suspect delutional Hx of recent rib Fx, miltiple , bilateral , with bilateral effusions on CT abd ETON abuse / withdrowal -no hallucinations No seizures - monitor -Continue supportive care on CIWA protocol --cont benzo --not on precedex Lines : 03/19 , (Central Line Necessity Reviewed)-central line place due to poor venous access [place]: + OG: Nutrition: po Analgesia: lortab Anxiety/ delirium as above VTE Prophylaxis: lovenox 40 Stress Ulcer Prophylaxis: food po Glycemic Control: + Plans in collaboration with bedside consultants and IM MDs. Discussed with RN to reach out if any questions or concerns A total of 27 minutes of critical care time was devoted to this patient today, required to treat and/or prevent further deterioration of critical care condition ( as above ) . MOI HULL MD Mar 20, 2021 10:17
--- NOTE | 2021-03-20 16:51 | Progress Note ---
Subjective Subjective/Events-last exam Afebrile, reports he is feeling much better. He is hopeful to go home soon. He states he is going to go to after discharge. He doesn't want to do inpatient treatment at this time. Focused Exam Lactate Level 03/20/21 04:17: Lactic Acid Level 3.33*H 03/20/21 08:10: Lactic Acid Level 2.63*H 03/20/21 16:10: Lactic Acid Level 1.40 Time of Focused Exam: 11:00 Lactic Acid Level Laboratory Tests Test 03/20/21 16:10 Lactic Acid Level 1.40 MMOL/L (0.50-2.00) Objective Exam Last Set of Vital Signs Vital Signs Date Time Temp Pulse Resp B/P (MAP) Pulse Ox O2 Delivery O2 Flow Rate FiO2 03/20/21 16:13 Vapotherm 30.00 40.00 03/20/21 16:00 94 40 03/20/21 16:00 96 41 136/90 (105) 03/20/21 12:40 37.1 Capillary Refill : Less Than 3 Seconds I&O Intake and Output 03/20/21 00:00 Intake Total 6607.7 ml Output Total 775 ml Balance 5832.7 ml Intake Oral 1700 ml IV Total 4907.7 ml Output Urine Total 775 ml Daily Weight Change No General: Alert, No Acute Distress Lungs: Clear to Auscultation, Normal Air Movement Heart: Regular Rate, No Murmurs Abdomen: Normal Bowel Sounds, Soft Neuro: Normal Speech Psych/Mental Status: Mental Status NL, Mood NL Results/Procedures Lab Laboratory Tests 03/19/21 16:57: Lactic Acid Level 4.04*H 03/19/21 17:03: Glucometer 128H 03/19/21 19:56: Lactic Acid Level 3.05*H 03/20/21 00:03: Lactic Acid Level 2.51*H 03/20/21 00:52: Glucometer 100 03/20/21 04:17: White Blood Count 17.5H, Red Blood Count 3.60L, Hemoglobin 11.0#L, Hematocrit 33L, Mean Corpuscular Volume 90, Mean Corpuscular Hemoglobin 31, Mean Corpuscular Hemoglobin Concent 34, Red Cell Distribution Width 18.3H, Platelet Count 322, Mean Platelet Volume 8.4L, Immature Granulocyte % (Auto) 0, Neutrophils (%) (Auto) 82H, Lymphocytes (%) (Auto) 11L, Monocytes (%) (Auto) 6, Eosinophils (%) (Auto) 0, Basophils (%) (Auto) 1, Neutrophils # (Auto) 14.3H, Lymphocytes # (Auto) 1.9, Monocytes # (Auto) 1.0, Eosinophils # (Auto) 0.0, Basophils # (Auto) 0.1, Immature Granulocyte # (Auto) 0.1, Sodium Level 132L, Potassium Level 4.1, Chloride Level 96L, Carbon Dioxide Level 24, Anion Gap 12, Blood Urea Nitrogen 7, Creatinine 0.66, Estimat Glomerular Filtration Rate > 60, BUN/Creatinine Ratio 11, Glucose Level 124H, Lactic Acid Level 3.33*H, Calcium Level 7.5L, Phosphorus Level 2.9, Magnesium Level 1.9 03/20/21 05:24: 03/20/21 08:10: Lactic Acid Level 2.63*H 03/20/21 16:10: Lactic Acid Level 1.40 Microbiology 03/19/21 MRSA Screen - Final, Complete MRSA not isolated 03/19/21 Blood Culture - Preliminary, Resulted Probable Coag Negative Staph Radiology CXR 03/19: IMPRESSION: 1. Right-sided line placement with the tip overlying the SVC. No pneumothorax is seen. 2. Bilateral rib fractures. There is some infiltrate in the left base as well as trace bilateral effusions. Assessment/Plan Assessment/Plan (1) Septic shock Status: Acute Assessment & Plan: Secondary to pneumonia possibly, started vanc and cefepime, received over 30 cc/kg bolus in ER, blood pressure okay, but lactate initially 10, trending down well with IVF. Check abdominal CT with diarrhea and bloating and history of cirrhosis. 12/18 CT abdomen with mild ascites, no acute findings. Lactic acid down to 2-3 this morning. (2) Left lower lobe pneumonia Status: Acute Assessment & Plan: Cefepime and vancomycin. (3) Acute respiratory failure Status: Acute Assessment & Plan: On oxymask, will try vapotherm. Has required intubation in past. 03/20- required up to 100% FiO2 yesterday, but is now stable on 40% FiO2. Qualifiers: Qualified Codes: J96.01 - Acute respiratory failure with hypoxia (4) Multiple rib fractures Status: Acute Assessment & Plan: Acute and chronic rib fractures, states his pain is improving. (5) Rhabdomyolysis Status: Acute Assessment & Plan: Elevated CK, but creatinine okay, IVF and monitor. Qualifiers: Qualified Codes: M62.82 - Rhabdomyolysis (6) Alcohol withdrawal Status: Acute Assessment & Plan: Ativan per [facility] protocol. Qualifiers: Qualified Codes: F10.230 - Alcohol dependence with withdrawal, uncomplicated (7) High anion gap metabolic acidosis Status: Resolved Assessment & Plan: Suspect alcoholic ketoacidosis. Check ABG. Cr okay, continue IVF. 03/20: resolved (8) DVT prophylaxis Status: Acute Assessment & Plan: Enoxaparin SHY DRAKE MD Mar 20, 2021 16:51
[2021-03-20] MEDS: ENOXAPARIN 40 MG/0.4 ML (LOVENOX) SYR SQ SCH (17:34)
[2021-03-21] MEDS: LORazepam INJ 2 MG/ML (ATIVAN) VIAL IV PRN ×12 (01:01→22:46)
[2021-03-21] MEDS: LACTATED RINGERS 1,000 ML IV SCH ×3 (01:52→16:28)
[2021-03-21] MEDS: fentaNYL INJ 100 MCG/2 ML AMP IV PRN ×2 (01:52→05:24)
[2021-03-21] MEDS: CEFEPIME 1,000 MG/SWFI 10 ML IV PUSH IV SCH ×8 (01:52→21:24)
[2021-03-21] MEDS: RT-ALBUTEROL/IPRATROPIUM 3 ML (DUONEB) VIAL INH SCH ×4 (02:25→21:06)
[2021-03-21 03:39] LABS: HEMATOCRIT 27 % (40-54); MEAN CORPUSCULAR HEMOGLOBIN 30 pg (25-34); MEAN CORPUSCULAR HGB CONC 33 g/dL (32-36); MEAN CORPUSCULAR VOLUME 91 fL (80-99); MEAN PLATELET VOLUME 9.1 fL (9.0-12.2); PLATELET COUNT 287 10^3/uL (130-400); WHITE BLOOD COUNT 11.4 10^3/uL (4.3-11.0)
[2021-03-21 04:08] LABS: ALBUMIN 2.2 GM/DL (3.2-4.5); CHLORIDE 94 MMOL/L (98-107); POTASSIUM 3.6 MMOL/L (3.6-5.0); SODIUM 131 MMOL/L (135-145)
[2021-03-21 04:09] LABS: CALCIUM 7.3 MG/DL (8.5-10.1)
[2021-03-21 04:11] LABS: GLUCOSE 87 MG/DL (70-105); TOTAL PROTEIN 4.5 GM/DL (6.4-8.2)
[2021-03-21 04:12] LABS: CARBON DIOXIDE 28 MMOL/L (21-32)
[2021-03-21 04:13] LABS: BILIRUBIN,TOTAL 0.7 MG/DL (0.1-1.0)
[2021-03-21 04:14] LABS: ALKALINE PHOSPHATASE 132 U/L (40-136); CREATININE SERUM 0.61 MG/DL (0.60-1.30); GFR ESTIMATED > 60
[2021-03-21 04:15] LABS: BUN/CREATININE RATIO 11
[2021-03-21 04:17] LABS: ALANINE AMINOTRANSFERASE 21 U/L (0-55); CREATINE KINASE 166 U/L (30-200)
--- NOTE | 2021-03-21 07:20 | Progress Note ---
Subjective Subjective/Events-last exam Becoming more agitated overnight, requiring increasing FiO2 overnight. Focused Exam Lactate Level 03/20/21 04:17: Lactic Acid Level 3.33*H 03/20/21 08:10: Lactic Acid Level 2.63*H 03/20/21 16:10: Lactic Acid Level 1.40 Time of Focused Exam: 11:00 Objective Exam Last Set of Vital Signs Vital Signs Date Time Temp Pulse Resp B/P (MAP) Pulse Ox O2 Delivery O2 Flow Rate FiO2 03/21/21 06:00 80 24 129/88 (102) 96 Vapotherm 30.00 60.00 03/21/21 04:05 36.4 03/21/21 04:00 60 Capillary Refill : Less Than 3 Seconds I&O Intake and Output 03/20/21 23:59 Intake Total 3940 ml Output Total 1150 ml Balance 2790 ml Intake Oral 2920 ml IV Total 1020 ml Output Urine Total 1150 ml # Bowel Movements 1 Results/Procedures Lab Laboratory Tests 03/20/21 08:10: Lactic Acid Level 2.63*H 03/20/21 16:10: Lactic Acid Level 1.40 03/21/21 03:10: White Blood Count 11.4H, Red Blood Count 2.99L, Hemoglobin 9.0L, Hematocrit 27L, Mean Corpuscular Volume 91, Mean Corpuscular Hemoglobin 30, Mean Corpuscular Hemoglobin Concent 33, Red Cell Distribution Width 17.3H, Platelet Count 287, Mean Platelet Volume 9.1, Sodium Level 131L, Potassium Level 3.6, Chloride Level 94L, Carbon Dioxide Level 28, Anion Gap 9, Blood Urea Nitrogen 7, Creatinine 0.61, Estimat Glomerular Filtration Rate > 60, BUN/Creatinine Ratio 11, Glucose Level 87, Calcium Level 7.3L, Corrected Calcium 8.7, Total Bilirubin 0.7, Aspartate Amino Transf (AST/SGOT) 23, Alanine Aminotransferase (ALT/SGPT) 21, Alkaline Phosphatase 132, Total Creatine Kinase 166, Total Protein 4.5L, Albumin 2.2L Microbiology 03/19/21 MRSA Screen - Final, Complete MRSA not isolated 03/19/21 Blood Culture - Preliminary, Resulted Probable Coag Negative Staph Radiology CXR 03/19: IMPRESSION: 1. Right-sided line placement with the tip overlying the SVC. No pneumothorax is seen. 2. Bilateral rib fractures. There is some infiltrate in the left base as well as trace bilateral effusions. Assessment/Plan Assessment/Plan (1) Septic shock Status: Resolved Assessment & Plan: Secondary to pneumonia possibly, started vanc and cefepime, received over 30 cc/kg bolus in ER, blood pressure okay, but lactate initially 10, trending down well with IVF. Check abdominal CT with diarrhea and bloating and history of cirrhosis. 12/18 CT abdomen with mild ascites, no acute findings. Lactic acid down to 2-3 this morning. (2) Left lower lobe pneumonia Status: Acute Assessment & Plan: Cefepime and vancomycin. (3) Acute respiratory failure Status: Acute Assessment & Plan: On oxymask, will try vapotherm. Has required intubation in past. 03/20- required up to 100% FiO2 yesterday, but is now stable on 40% FiO2. Qualifiers: Qualified Codes: J96.01 - Acute respiratory failure with hypoxia (4) Multiple rib fractures Status: Acute Assessment & Plan: Acute and chronic rib fractures, states his pain is improving. (5) Rhabdomyolysis Status: Resolved Assessment & Plan: Elevated CK, but creatinine okay, IVF and monitor. Qualifiers: Qualified Codes: M62.82 - Rhabdomyolysis (6) Alcohol withdrawal Status: Acute Assessment & Plan: Ativan per [facility] protocol. Qualifiers: Qualified Codes: F10.230 - Alcohol dependence with withdrawal, uncomplicated (7) High anion gap metabolic acidosis Status: Resolved Assessment & Plan: Suspect alcoholic ketoacidosis. Check ABG. Cr okay, continue IVF. 03/20: resolved (8) DVT prophylaxis Status: Acute Assessment & Plan: Enoxaparin SHY DRAKE MD Mar 21, 2021 07:20
[2021-03-21] MEDS: MULTIVIT W/MINERALS TAB (THERAGRAN M) PO SCH (08:11)
[2021-03-21] MEDS: FLUoxetine HCL 20 MG (PROzac) CAP PO SCH (08:11)
[2021-03-21] MEDS: MAGNESIUM OXIDE (MAG-OX)400 MG TAB PO SCH ×2 (08:11→21:37)
[2021-03-21] MEDS: THIAMINE 100 MG (VITAMIN B-1) TAB PO SCH (08:11)
[2021-03-21] MEDS: FOLIC ACID 1 MG TAB PO SCH (08:11)
[2021-03-21] MEDS ORDERED: DexMEDEtomidine 250 ML DRIP 250 ML IV SCH (11:30)
--- NOTE | 2021-03-21 11:33 | Progress Note ---
Subjective Subjective/Events-last exam Afebrile, but had worsening withdrawal symptoms requiring much more frequent ativan doses and increased oxygen requirement last night. Feeling a little better this morning. Focused Exam Lactate Level 03/20/21 04:17: Lactic Acid Level 3.33*H 03/20/21 08:10: Lactic Acid Level 2.63*H 03/20/21 16:10: Lactic Acid Level 1.40 Time of Focused Exam: 11:00 Objective Exam Last Set of Vital Signs Vital Signs Date Time Temp Pulse Resp B/P (MAP) Pulse Ox O2 Delivery O2 Flow Rate FiO2 03/21/21 11:00 84 17 121/83 (96) 94 Vapotherm 30.00 60.00 03/21/21 10:22 60 03/21/21 08:00 36.6 Capillary Refill : Less Than 3 Seconds I&O Intake and Output 03/21/21 00:00 Intake Total 3940 ml Output Total 1150 ml Balance 2790 ml Intake Oral 2920 ml IV Total 1020 ml Output Urine Total 1150 ml # Bowel Movements 1 General: Alert, Other (oriented to self and location and year, but not date) Lungs: Clear to Auscultation, Normal Air Movement Heart: Regular Rate, No Murmurs Abdomen: Normal Bowel Sounds, Soft Neuro: Normal Speech Psych/Mental Status: Mood NL Results/Procedures Lab Laboratory Tests 03/20/21 16:10: Lactic Acid Level 1.40 03/21/21 03:10: White Blood Count 11.4H, Red Blood Count 2.99L, Hemoglobin 9.0L, Hematocrit 27L, Mean Corpuscular Volume 91, Mean Corpuscular Hemoglobin 30, Mean Corpuscular Hemoglobin Concent 33, Red Cell Distribution Width 17.3H, Platelet Count 287, Mean Platelet Volume 9.1, Sodium Level 131L, Potassium Level 3.6, Chloride Level 94L, Carbon Dioxide Level 28, Anion Gap 9, Blood Urea Nitrogen 7, Creatinine 0.61, Estimat Glomerular Filtration Rate > 60, BUN/Creatinine Ratio 11, Glucose Level 87, Calcium Level 7.3L, Corrected Calcium 8.7, Total Bilirubin 0.7, Aspar umaña Amino Transf (AST/SGOT) 23, Alanine Aminotransferase (ALT/SGPT) 21, Alkaline Phosphatase 132, Total Creatine Kinase 166, Total Protein 4.5L, Albumin 2.2L Microbiology 03/19/21 MRSA Screen - Final, Complete MRSA not isolated 03/19/21 Blood Culture - Preliminary, Resulted Probable Coag Negative Staph Radiology CXR 03/19: IMPRESSION: 1. Right-sided line placement with the tip overlying the SVC. No pneumothorax is seen. 2. Bilateral rib fractures. There is some infiltrate in the left base as well as trace bilateral effusions. Assessment/Plan Assessment/Plan (1) Septic shock Status: Resolved Assessment & Plan: Secondary to pneumonia possibly, started vanc and cefepime, received over 30 cc/kg bolus in ER, blood pressure okay, but lactate initially 10, trending down well with IVF. Check abdominal CT with diarrhea and bloating and history of cirrhosis. 12/18 CT abdomen with mild ascites, no acute findings. Lactic acid down to 2-3 this morning. 12/19 lactic acid normalized yesterday (2) Left lower lobe pneumonia Status: Acute Assessment & Plan: Cefepime and vancomycin. (3) Acute respiratory failure Status: Acute Assessment & Plan: On oxymask, will try vapotherm. Has required intubation in past. 03/20- required up to 100% FiO2 yesterday, but is now stable on 40% FiO2. 03/21- increased FiO2 requirements again last night, will keep in ICU given severity of withdrawal and need for high cumulative ativan doses Qualifiers: Qualified Codes: J96.01 - Acute respiratory failure with hypoxia (4) Multiple rib fractures Status: Acute Assessment & Plan: Acute and chronic rib fractures, states his pain is improving. (5) Rhabdomyolysis Status: Resolved Assessment & Plan: Elevated CK, but creatinine okay, IVF and monitor. Qualifiers: Qualified Codes: M62.82 - Rhabdomyolysis (6) Alcohol withdrawal Status: Acute Assessment & Plan: Ativan per [facility] protocol. Qualifiers: Qualified Codes: F10.230 - Alcohol dependence with withdrawal, uncomplicated (7) High anion gap metabolic acidosis Status: Resolved Assessment & Plan: Suspect alcoholic ketoacidosis. Check ABG. Cr okay, continue IVF. 03/20: resolved (8) DVT prophylaxis Status: Acute Assessment & Plan: Enoxaparin SHY DRAKE MD Mar 21, 2021 11:33
--- NOTE | 2021-03-21 14:13 | Tele-ICU Progress Note ---
Subjective Date Seen by a Provider: Mar 21, 2021 Time Seen by a Provider: 09:30 Subjective/Events-last exam He is admitted with alcohol abuse and withdrawal symptoms. Currently on he CIWA protocol. He is still having tremors and agitation on and off. Reviewed with RN and video visit made. Hemodynamically stable Review of Systems Neurological: Incoordination, Confusion, Other (anxiety and tremors) Sepsis Event Evaluation Height, Weight, BMI Height: 6'1.00" Weight: 188lbs. 0.0oz. 85.851368eg; 24.45 BMI Method:Stated Focused Exam Lactate Level 03/20/21 04:17: Lactic Acid Level 3.33*H 03/20/21 08:10: Lactic Acid Level 2.63*H 03/20/21 16:10: Lactic Acid Level 1.40 Time of Focused Exam: 11:00 Exam Exam Patient acknowledged, consented, and participated in this virtual visit which was conducted using real time audio/video Vital Signs Date Time Temp Pulse Resp B/P (MAP) Pulse Ox O2 Delivery O2 Flow Rate FiO2 03/21/21 12:37 74 103/60 03/21/21 12:30 81 03/21/21 12:00 81 23 103/60 (74) 97 Vapotherm 30.00 60.00 03/21/21 12:00 95 Vapotherm 30.00 60 03/21/21 11:43 36.8 03/21/21 11:00 84 17 121/83 (96) 94 Vapotherm 30.00 60.00 03/21/21 10:22 94 Vapotherm 30.00 60 03/21/21 10:00 85 15 96/70 (79) 93 Vapotherm 30.00 60.00 03/21/21 09:00 86 24 113/67 (82) 96 Vapotherm 30.00 60.00 03/21/21 08:00 95 Vapotherm 30.00 60 03/21/21 08:00 36.6 03/21/21 08:00 79 14 96 Vapotherm 30.00 60.00 03/21/21 07:00 83 24 135/84 (101) 96 Vapotherm 30.00 60.00 03/21/21 07:00 77 03/21/21 06:00 80 24 129/88 (102) 96 Vapotherm 30.00 60.00 03/21/21 05:00 85 20 125/95 (105) 94 Vapotherm 30.00 60.00 03/21/21 04:05 36.4 03/21/21 04:00 92 Vapotherm 30.00 60 03/21/21 04:00 82 17 128/86 (100) 95 Vapotherm 30.00 60.00 03/21/21 03:00 87 26 120/73 (89) 95 Vapotherm 30.00 60.00 03/21/21 02:26 96 Vapotherm 25.00 60 03/21/21 02:00 85 16 140/88 (105) 96 Vapotherm 30.00 60.00 03/21/21 01:00 85 03/21/21 01:00 92 26 133/94 (107) 96 Vapotherm 30.00 60.00 03/21/21 00:15 36.0 03/21/21 00:00 87 21 127/88 (101) 97 Vapotherm 30.00 60.00 03/20/21 23:59 92 Vapotherm 30.00 60 03/20/21 23:11 Vapotherm 30.00 60.00 03/20/21 23:00 93 20 117/77 (90) 90 Vapotherm 25.00 45.00 03/20/21 22:00 82 20 119/88 (98) 92 Vapotherm 25.00 45.00 03/20/21 21:44 92 Vapotherm 25.00 45 03/20/21 21:00 84 115/79 (91) 93 Vapotherm 25.00 45.00 03/20/21 20:46 36.4 03/20/21 20:00 90 26 135/88 (104) 92 Vapotherm 25.00 45.00 03/20/21 20:00 92 Vapotherm 25.00 45 03/20/21 19:56 Vapotherm 25.00 45.00 03/20/21 19:00 92 17 135/88 (104) 96 Vapotherm 20.00 30.00 03/20/21 19:00 90 03/20/21 18:00 89 20 147/92 (110) 97 Vapotherm 20.00 30.00 03/20/21 17:56 36.2 03/20/21 17:51 Vapotherm 20.00 30.00 03/20/21 17:00 97 25 128/111 (117) 86 Vapotherm 30.00 40.00 03/20/21 16:13 Vapotherm 30.00 40.00 03/20/21 16:00 94 Vapotherm 30.00 40 03/20/21 16:00 96 41 136/90 (105) 91 Vapotherm 30.00 60.00 03/20/21 15:00 93 21 122/78 (93) 92 Vapotherm 30.00 60.00 03/20/21 14:13 91 Vapotherm 30.00 40 I & O 03/21/21 07:00 Intake Total 2600 ml Output Total 1400 ml Balance 1200 ml Height & Weight Height: 6'1.00" Weight: 188lbs. 0.0oz. 85.258346yx; 24.45 BMI Method:Stated General Appearance: Anxious, Chronically ill, Moderate Distress HEENT: PERRL/EOMI, TMs Normal; No Moist Mucous Membranes Neck: Full Range of Motion, Normal Inspection Respiratory: No Accessory Muscle Use, Rales, Respiratory Distress (Mild with oxygen at 8 L he is maintaining sats 94 to 96% and respiratory rate of 22) Cardiovascular: Normal Peripheral Pulses, Tachycardia (110) Capillary Refill: Less Than 3 Seconds Peripheral Pulses: 2+ Radial Pulses (R), 2+ Radial Pulses (L) Gastrointestinal: normal bowel sounds, non tender, distended Extremity: Normal Inspection, No Pedal Edema, Slow Capillary Refill (3 seconds) Neurologic/Psychiatric: Alert, Oriented x3, Other (Anxious affect) Other comments currently no signs of sepsis. staph epi probably contamination Results Lab Laboratory Tests 03/20/21 04:17 03/21/21 03:10 Meds reviewed Radiology reviewed Assessment/Plan Assessment/Plan This pantomimist reviewed the available chart, vitals labs and images. Video vi sit and assessment made. Discussed with the RN. As per RN exam there are no rales or rhonchi present heart sounds are normal. Extremity tremors present. Impression alcohol abuse disorder with delirium tremens. 2. Acute hypoxic respiratory failure improving 3. Questionable left lower lobe pneumonia started on cefepime and Vanco 4. History of recent fall and right-sided multiple rib fractures and there are small bilateral pleural effusion Recommendations 1. 1. We will start on a Precedex drip 2. CIWA protocol 3. We will start on thiamine and folic acid 4. DVT prophylaxis with Lovenox 5. Ulcer prophylaxis with the Protonix Critical Care: Critically Ill Patient Time spent with patient (mins): 25 Diagnosis/Problems Diagnosis/Problems (1) Anemia (2) Acute respiratory failure Status: Acute Qualifiers: Qualified Codes: J96.01 - Acute respiratory failure with hypoxia (3) Left lower lobe pneumonia Status: Acute (4) Alcohol dependence with intoxication, unspecified Status: Acute MARA IRVING MD Mar 21, 2021 14:13
[2021-03-21] MEDS: PANTOPRAZOLE 40 MG (PROTONIX) TAB PO SCH (14:57)
[2021-03-21] MEDS: ENOXAPARIN 40 MG/0.4 ML (LOVENOX) SYR SQ SCH (18:43)
[2021-03-21] MEDS ORDERED: NS IV 1000 ML 1,000 ML IV ONE (21:15)
[2021-03-22] MEDS: LORazepam INJ 2 MG/ML (ATIVAN) VIAL IV PRN ×4 (01:10→05:58)
[2021-03-22] MEDS: LACTATED RINGERS 1,000 ML IV SCH ×4 (01:10→19:31)
[2021-03-22] MEDS: CEFEPIME 1,000 MG/SWFI 10 ML IV PUSH IV SCH ×8 (01:10→19:27)
[2021-03-22] MEDS: RT-ALBUTEROL/IPRATROPIUM 3 ML (DUONEB) VIAL INH SCH ×4 (02:26→22:10)
[2021-03-22] MEDS: MULTIVIT W/MINERALS TAB (THERAGRAN M) PO SCH (05:57)
[2021-03-22] MEDS: THIAMINE 100 MG (VITAMIN B-1) TAB PO SCH (05:57)
[2021-03-22 06:18] LABS: HEMATOCRIT 27 % (40-54); HEMOGLOBIN 8.8 g/dL (13.3-17.7); MEAN CORPUSCULAR HEMOGLOBIN 30 pg (25-34); MEAN CORPUSCULAR HGB CONC 33 g/dL (32-36); MEAN CORPUSCULAR VOLUME 92 fL (80-99); MEAN PLATELET VOLUME 8.7 fL (9.0-12.2); PLATELET COUNT 302 10^3/uL (130-400); WHITE BLOOD COUNT 7.4 10^3/uL (4.3-11.0)
[2021-03-22 06:25] LABS: ALBUMIN 2.2 GM/DL (3.2-4.5); CHLORIDE 98 MMOL/L (98-107); POTASSIUM 3.7 MMOL/L (3.6-5.0); SODIUM 137 MMOL/L (135-145)
[2021-03-22 06:27] LABS: CALCIUM 7.4 MG/DL (8.5-10.1)
[2021-03-22 06:28] LABS: GLUCOSE 90 MG/DL (70-105); TOTAL PROTEIN 4.6 GM/DL (6.4-8.2)
[2021-03-22 06:29] LABS: CARBON DIOXIDE 29 MMOL/L (21-32)
[2021-03-22 06:30] LABS: BILIRUBIN,TOTAL 0.3 MG/DL (0.1-1.0)
[2021-03-22 06:31] LABS: ALKALINE PHOSPHATASE 118 U/L (40-136); PHOSPHORUS 3.1 MG/DL (2.3-4.7)
[2021-03-22 06:32] LABS: GFR ESTIMATED > 60
[2021-03-22 06:33] LABS: BUN/CREATININE RATIO 7
[2021-03-22 06:34] LABS: ALANINE AMINOTRANSFERASE 21 U/L (0-55); MAGNESIUM 1.9 MG/DL (1.6-2.4)
[2021-03-22] MEDS: MAGNESIUM OXIDE (MAG-OX)400 MG TAB PO SCH (07:38)
[2021-03-22] MEDS: FOLIC ACID 1 MG TAB PO SCH (07:38)
[2021-03-22] MEDS: PANTOPRAZOLE 40 MG (PROTONIX) TAB PO SCH (07:39)
[2021-03-22] MEDS: FLUoxetine HCL 20 MG (PROzac) CAP PO SCH (07:39)
--- NOTE | 2021-03-22 09:10 | Tele-ICU Progress Note ---
Progress Note video rounds completed 60 y/o male admitted with alcohol withdrawl symptoms Placed on prededex and CIWA protocol Currently comfortable and non aggitated Pulse 76 NSR BP: 133/92 Labs: hgb: 8.8 K: 3.7 Mg 1.9 PLAN: continue CIWA protocol Has received thimaine and on MVI Focused Exam Lactate Level 03/20/21 04:17: Lactic Acid Level 3.33*H 03/20/21 08:10: Lactic Acid Level 2.63*H 03/20/21 16:10: Lactic Acid Level 1.40 Height, Weight, BMI Height: 6'1.00" Weight: 188lbs. 0.0oz. 85.616654wj; 24.45 BMI Method:Stated Time of Focused Exam: 11:00 PAT PARHAM MD Mar 22, 2021 09:10
[2021-03-22] MEDS: LORazepam 1 MG (ATIVAN) TAB PO PRN ×8 (09:37→23:17)
[2021-03-22] MEDS: HYDROcodone/APAP 5 MG/325 MG (LORTAB) TAB PO PRN ×4 (10:39→23:17)
--- NOTE | 2021-03-22 11:22 | Progress Note - Hospitalist ---
Subjective HPI/CC On Admission Date Seen by Provider: Mar 22, 2021 Time Seen by Provider: 11:00 Subjective/Events-last exam Patient reports feeling like he can take a deeper breath and is less short of breath. He is really had no evidence for withdrawal but does report decreased anxiety with lorazepam and for this reason he has been requesting it. He had received a dose 1520 minutes before my arrival was not sedated and was alert and oriented and the staff have noted no evidence with oversedation. Mild cough predominantly nonproductive no chills or fever reported. Focused Exam Lactate Level 03/20/21 04:17: Lactic Acid Level 3.33*H 03/20/21 08:10: Lactic Acid Level 2.63*H 03/20/21 16:10: Lactic Acid Level 1.40 Time of Focused Exam: 11:00 Objective Exam Vital Signs Vital Signs Date Time Temp Pulse Resp B/P (MAP) Pulse Ox O2 Delivery O2 Flow Rate FiO2 03/22/21 10:36 94 Vapotherm 30.00 45 03/22/21 10:00 79 20 139/88 (105) 03/22/21 08:04 36.6 Capillary Refill : Less Than 3 Seconds General Appearance: Anxious Respiratory: No Accessory Muscle Use, Other (Scattered rhonchi with a few rales in the left base no wheezing noted.) Cardiovascular: Regular Rate, Rhythm, No Edema, No Gallop, No JVD, No Murmur, Normal Peripheral Pulses Gastrointestinal: Normal Bowel Sounds, No Organomegaly, No Pulsatile Mass, Non Tender, Soft Results/Procedures Lab Laboratory Tests 03/22/21 06:00 Patient resulted labs reviewed. Assessment/Plan Assessment and Plan Assess & Plan/Chief Complaint (1) Septic shock Status: Resolved Assessment & Plan: Secondary to pneumonia possibly, started vanc and cefepime, received over 30 cc/kg bolus in ER, blood pressure okay, but lactate initially 10, trending down well with IVF. Check abdominal CT with diarrhea and bloating and history of cirrhosis. 12/18 CT abdomen with mild ascites, no acute findings. Lactic acid down to 2-3 this morning. 12/19 lactic acid normalized yesterday (2) Left lower lobe pneumonia Status: Acute Assessment & Plan: Cefepime and vancomycin. (3) Acute respiratory failure Status: Acute Assessment & Plan: On oxymask, will try vapotherm. Has required intubation in past. 03/20- required up to 100% FiO2 yesterday, but is now stable on 40% FiO2. 03/21- increased FiO2 requirements again last night, will keep in ICU given severity of withdrawal and need for high cumulative ativan doses 03/22 symptomatic improvement although the patient is still requiring high flow oxygen Via Vapotherm to maintain saturations above 90%. We will have him set up in the chair. No evidence for alcohol withdrawal for a little over 24 hours now we will continue Ativan for anxiety as needed as long as her continues to be no evidence for sedation. Qualifiers: Qualified Codes: J96.01 - Acute respiratory failure with hypoxia (4) Multiple rib fractures Status: Acute Assessment & Plan: Acute and chronic rib fractures, states his pain is improving. (5) Rhabdomyolysis Status: Resolved Assessment & Plan: Elevated CK, but creatinine okay, IVF and monitor. Qualifiers: Qualified Codes: M62.82 - Rhabdomyolysis (6) Alcohol withdrawal Status: Acute Assessment & Plan: Ativan per [facility] protocol. Qualifiers: Qualified Codes: F10.230 - Alcohol dependence with withdrawal, uncomplicated (7) High anion gap metabolic acidosis Status: Resolved Assessment & Plan: Suspect alcoholic ketoacidosis. Check ABG. Cr okay, continue IVF. 03/20: resolved (8) DVT prophylaxis Status: Acute Assessment & Plan: Enoxaparin Critical Care Critically Ill Patient DELFINO MACIAS MD Mar 22, 2021 11:22
[2021-03-22 15:13] VITALS: BP 153/96
[2021-03-22] MEDS: ENOXAPARIN 40 MG/0.4 ML (LOVENOX) SYR SQ SCH (17:18)
[2021-03-23] MEDS: LACTATED RINGERS 1,000 ML IV SCH (01:25)
[2021-03-23] MEDS: LORazepam 1 MG (ATIVAN) TAB PO PRN ×11 (01:26→22:09)
[2021-03-23] MEDS: CEFEPIME 1,000 MG/SWFI 10 ML IV PUSH IV SCH ×8 (01:26→19:41)
[2021-03-23] MEDS: RT-ALBUTEROL/IPRATROPIUM 3 ML (DUONEB) VIAL INH SCH ×4 (02:34→21:38)
[2021-03-23] MEDS: HYDROcodone/APAP 5 MG/325 MG (LORTAB) TAB PO PRN ×5 (03:19→19:40)
[2021-03-23] MEDS: MULTIVIT W/MINERALS TAB (THERAGRAN M) PO SCH (05:54)
[2021-03-23 06:08] LABS: BASOPHILS # (AUTO) 0.1 10^3/uL (0.0-0.1); BASOPHILS % (AUTO) 1 % (0-10); EOSINOPHILS # (AUTO) 0.2 10^3/uL (0.0-0.3); EOSINOPHILS % (AUTO) 2 % (0-10); HEMATOCRIT 27 % (40-54); HEMOGLOBIN 8.8 g/dL (13.3-17.7); LYMPHOCYTES # (AUTO) 1.7 10^3/uL (1.0-4.0); LYMPHOCYTES % (AUTO) 25 % (12-44); MEAN CORPUSCULAR HEMOGLOBIN 30 pg (25-34); MEAN CORPUSCULAR HGB CONC 33 g/dL (32-36); MEAN CORPUSCULAR VOLUME 93 fL (80-99); MEAN PLATELET VOLUME 8.2 fL (9.0-12.2); MONOCYTES # (AUTO) 0.6 10^3/uL (0.0-1.0); MONOCYTES % (AUTO) 9 % (0-12); NEUTROPHILS # (AUTO) 4.2 10^3/uL (1.8-7.8); NEUTROPHILS % (AUTO) 61 % (42-75); PLATELET COUNT 306 10^3/uL (130-400); WHITE BLOOD COUNT 6.9 10^3/uL (4.3-11.0)
[2021-03-23 06:18] LABS: CHLORIDE 100 MMOL/L (98-107); POTASSIUM 3.8 MMOL/L (3.6-5.0); SODIUM 138 MMOL/L (135-145)
[2021-03-23 06:19] LABS: CALCIUM 7.4 MG/DL (8.5-10.1); GLUCOSE 93 MG/DL (70-105)
[2021-03-23 06:21] LABS: CARBON DIOXIDE 30 MMOL/L (21-32)
[2021-03-23 06:23] LABS: GFR ESTIMATED > 60; PHOSPHORUS 3.6 MG/DL (2.3-4.7)
[2021-03-23 06:24] LABS: BUN/CREATININE RATIO 8
[2021-03-23 06:26] LABS: MAGNESIUM 1.9 MG/DL (1.6-2.4)
[2021-03-23] MEDS: PANTOPRAZOLE 40 MG (PROTONIX) TAB PO SCH (07:28)
[2021-03-23] MEDS: FLUoxetine HCL 20 MG (PROzac) CAP PO SCH (07:28)
[2021-03-23] MEDS: FOLIC ACID 1 MG TAB PO SCH (07:35)
--- NOTE | 2021-03-23 09:50 | Tele-ICU Progress Note ---
Subjective Date Seen by a Provider: Mar 23, 2021 Time Seen by a Provider: 09:46 Subjective/Events-last exam Rounded virtually with RN Lynn. Patient stable overnight on 2.5 LPM NC. Resting comfortably in bed. VSS. Today's plan is to send to floor. Sepsis Event Evaluation Sepsis Stage: Sepsis Possible Source: Other Height, Weight, BMI Height: 6'1.00" Weight: 188lbs. 0.0oz. 85.211681er; 24.45 BMI Method:Stated Bedside Monitoring CVP Measures: Less than 8 ScvO2 measures: Greater than 70% Bedside Ultrasound Performed: No Passive Leg Raise/Fluid Bolus: Fluid Responsive Focused Exam Sepsis Stage: Sepsis Possible Source: Other Lactate Level 03/20/21 16:10: Lactic Acid Level 1.40 Time of Focused Exam: 11:00 Peripheral Pulses: 2+ Left Dors-Pedis (L), 2+ Radial Pulses (R) Lactic Acid Level See freetext note Within 3hrs of presentation: Other Exam Exam Patient acknowledged, consented, and participated in this virtual visit which was conducted using real time audio/video Vital Signs Date Time Temp Pulse Resp B/P (MAP) Pulse Ox O2 Delivery O2 Flow Rate FiO2 03/23/21 09:27 94 Vapotherm 15.00 25 03/23/21 09:13 Vapotherm 15.00 20.00 03/23/21 08:26 97 Vapotherm 25.00 40 03/23/21 08:17 Vapotherm 20.00 30.00 03/23/21 08:00 93 21 107/95 (99) 97 Vapotherm 25.00 40.00 03/23/21 07:36 Vapotherm 25.00 40.00 03/23/21 07:30 36.8 03/23/21 07:00 88 03/23/21 07:00 89 16 130/89 (103) 94 Vapotherm 25.00 45.00 03/23/21 06:00 86 28 108/85 (93) 95 Vapotherm 25.00 45.00 03/23/21 05:00 79 17 126/77 (93) 94 Vapotherm 25.00 45.00 03/23/21 04:00 93 Vapotherm 25.00 40 03/23/21 04:00 86 20 133/83 (100) 96 Vapotherm 25.00 45.00 03/23/21 03:00 91 23 134/77 (96) 95 Vapotherm 25.00 45.00 03/23/21 02:34 97 Vapotherm 25.00 40 03/23/21 02:00 78 17 140/86 (104) 95 Vapotherm 25.00 45.00 03/23/21 01:00 84 03/23/21 01:00 86 136/80 (98) 85 Vapotherm 25.00 45.00 03/23/21 00:00 85 97/81 (86) 95 Vapotherm 25.00 45.00 03/22/21 23:59 92 Vapotherm 25.00 40 03/22/21 23:13 Vapotherm 25.00 45.00 03/22/21 23:00 90 40 139/84 (102) 93 Vapotherm 20.00 30.00 03/22/21 22:11 95 Vapotherm 20.00 30 03/22/21 22:00 81 143/88 (106) 94 Vapotherm 20.00 30.00 03/22/21 21:27 Vapotherm 20.00 30.00 03/22/21 21:00 82 29 118/76 (90) Vapotherm 30.00 45.00 03/22/21 20:00 80 17 130/86 (101) 92 Vapotherm 30.00 45.00 03/22/21 20:00 94 Vapotherm 30.00 45 03/22/21 19:32 Vapotherm 30.00 45.00 03/22/21 19:18 36.7 03/22/21 19:00 90 03/22/21 19:00 92 129 24/92 (70) 113 Vapotherm 35.00 55.00 03/22/21 18:00 90 26 138/89 (105) 94 Vapotherm 35.00 55.00 03/22/21 17:00 55 136/81 (99) 94 Vapotherm 35.00 55.00 03/22/21 16:00 79 23 153/84 (107) 93 Vapotherm 35.00 55.00 03/22/21 15:37 36.6 03/22/21 15:13 36.4 82 90 03/22/21 15:13 92 Vapotherm 35.00 55 03/22/21 15:12 90 Vapotherm 35.00 55 03/22/21 15:00 81 10 153/96 (115) 93 Vapotherm 35.00 55.00 03/22/21 14:43 Vapotherm 35.00 55.00 03/22/21 14:00 80 25 133/77 (95) 92 Vapotherm 30.00 45.00 03/22/21 13:00 91 15 133/78 (96) 93 Vapotherm 30.00 45.00 03/22/21 12:56 81 03/22/21 12:15 36.4 03/22/21 12:00 84 26 123/76 (92) 92 Vapotherm 30.00 45.00 03/22/21 11:27 93 Vapotherm 30.00 45 03/22/21 11:00 82 25 132/74 (93) 90 Vapotherm 30.00 45.00 03/22/21 10:36 94 Vapotherm 30.00 45 03/22/21 10:00 79 20 139/88 (105) 91 Vapotherm 30.00 45.00 I & O 03/23/21 07:00 Intake Total 3350 ml Output Total 8775 ml Balance -5425 ml Height & Weight Height: 6'1.00" Weight: 188lbs. 0.0oz. 85.931125ie; 24.45 BMI Method:Stated General Appearance: Anxious HEENT: PERRL/EOMI, TMs Normal; No Moist Mucous Membranes Neck: Full Range of Motion, Normal Inspection Respiratory: No Accessory Muscle Use, Other (Scattered rhonchi with a few rales in the left base no wheezing noted.) Cardiovascular: Regular Rate, Rhythm, No Edema, No Gallop, No JVD, No Murmur, Normal Peripheral Pulses Capillary Refill: Less Than 3 Seconds Peripheral Pulses: 2+ Radial Pulses (R), 2+ Radial Pulses (L) Gastrointestinal: normal bowel sounds, non tender, distended Extremity: Normal Inspection, No Pedal Edema, Slow Capillary Refill (3 seconds) Neurologic/Psychiatric: Alert, Oriented x3, Other (Anxious affect) Other comments See freetext note Results Lab Laboratory Tests 03/22/21 06:00 03/23/21 06:00 Meds See freetext note Radiology See freetext note Procedures See freetext note Assessment/Plan Assessment/Plan See freetext note Critical Care: Critically Ill Patient Time spent with patient (mins): 10 Advance Care discuss with: patient Time spent on discussion(mins): 10 NIDIA MEAD MD Mar 23, 2021 09:50
--- NOTE | 2021-03-23 11:17 | Progress Note - Hospitalist ---
Subjective HPI/CC On Admission Date Seen by Provider: Mar 23, 2021 Time Seen by Provider: 11:14 Subjective/Events-last exam Patient feeling better less short of breath denies chest pain or hemoptysis. Focused Exam Lactate Level 03/20/21 16:10: Lactic Acid Level 1.40 Time of Focused Exam: 11:00 Objective Exam Vital Signs Vital Signs Date Time Temp Pulse Resp B/P (MAP) Pulse Ox O2 Delivery O2 Flow Rate FiO2 03/23/21 09:47 95 High Flow N/C 2.50 03/23/21 09:27 25 03/23/21 09:00 91 106/68 (81) 03/23/21 08:00 21 03/23/21 07:30 36.8 Capillary Refill : Less Than 3 Seconds General Appearance: No Apparent Distress, Chronically ill Respiratory: No Accessory Muscle Use, No Respiratory Distress, Other (Scattered rhonchi some diminishment in breath sounds in the bases unchanged from yesterday) Cardiovascular: Regular Rate, Rhythm, No Edema, No Gallop, No JVD, No Murmur Results/Procedures Lab Laboratory Tests 03/23/21 06:00 Patient resulted labs reviewed. Assessment/Plan Assessment and Plan Assess & Plan/Chief Complaint (1) Septic shock Status: Resolved Assessment & Plan: Secondary to pneumonia possibly, started vanc and cefepime, received over 30 cc/kg bolus in ER, blood pressure okay, but lactate initially 10, trending down well with IVF. Check abdominal CT with diarrhea and bloating and history of cirrhosis. 12/18 CT abdomen with mild ascites, no acute findings. Lactic acid down to 2-3 this morning. 12/19 lactic acid normalized yesterday 12/21 improved oxygenation status O2 now down to 2.5 L maintaining sats in the mid 90s with improved air movement and normalization of white count. While the patient did have a blood culture positive for staph epidermidis that was methicillin sensitive this is less likely to be the etiology of his underlying pneumonia more likely to be a contaminant he is responding to cefepime so we will continue. (2) Left lower lobe pneumonia Status: Acute Assessment & Plan: Cefepime and vancomycin. (3) Acute respiratory failure Status: Acute Assessment & Plan: On oxymask, will try vapotherm. Has required intubation in past. 03/20- required up to 100% FiO2 yesterday, but is now stable on 40% FiO2. 03/21- increased FiO2 requirements again last night, will keep in ICU given severity of withdrawal and need for high cumulative ativan doses 03/22 symptomatic improvement although the patient is still requiring high flow oxygen Via Vapotherm to maintain saturations above 90%. We will have him set up in the chair. No evidence for alcohol withdrawal for a little over 24 hours now we will continue Ativan for anxiety as needed as long as her continues to be no evidence for sedation. Qualifiers: Qualified Codes: J96.01 - Acute respiratory failure with hypoxia (4) Multiple rib fractures Status: Acute Assessment & Plan: Acute and chronic rib fractures, states his pain is improving. (5) Rhabdomyolysis Status: Resolved Assessment & Plan: Elevated CK, but creatinine okay, IVF and monitor. Qualifiers: Qualified Codes: M62.82 - Rhabdomyolysis (6) Alcohol withdrawal Status: Acute Assessment & Plan: Ativan per [facility] protocol. Qualifiers: Qualified Codes: F10.230 - Alcohol dependence with withdrawal, uncomplicated (7) High anion gap metabolic acidosis Status: Resolved Assessment & Plan: Suspect alcoholic ketoacidosis. Check ABG. Cr okay, continue IVF. 03/20: resolved (8) DVT prophylaxis Status: Acute Assessment & Plan: Enoxaparin Critical Care Critically Ill Patient DELFINO MACIAS MD Mar 23, 2021 11:17
[2021-03-23 11:30] VITALS: BP 125/77
[2021-03-23 16:02] VITALS: BP 147/89
[2021-03-23] MEDS: ENOXAPARIN 40 MG/0.4 ML (LOVENOX) SYR SQ SCH (18:09)
[2021-03-23 19:58] VITALS: BP 130/86
[2021-03-24 00:02] VITALS: BP 155/74
[2021-03-24] MEDS: HYDROcodone/APAP 5 MG/325 MG (LORTAB) TAB PO PRN ×6 (00:27→20:13)
[2021-03-24] MEDS: LORazepam 1 MG (ATIVAN) TAB PO PRN ×12 (00:27→22:46)
[2021-03-24] MEDS: CEFEPIME 1,000 MG/SWFI 10 ML IV PUSH IV SCH ×4 (02:44→08:28)
[2021-03-24 04:24] VITALS: BP 152/94
[2021-03-24 05:00] LABS: BASOPHILS # (AUTO) 0.1 10^3/uL (0.0-0.1); BASOPHILS % (AUTO) 2 % (0-10); EOSINOPHILS # (AUTO) 0.3 10^3/uL (0.0-0.3); EOSINOPHILS % (AUTO) 4 % (0-10); HEMATOCRIT 30 % (40-54); HEMOGLOBIN 9.8 g/dL (13.3-17.7); LYMPHOCYTES # (AUTO) 1.8 10^3/uL (1.0-4.0); LYMPHOCYTES % (AUTO) 24 % (12-44); MEAN CORPUSCULAR HEMOGLOBIN 31 pg (25-34); MEAN CORPUSCULAR HGB CONC 33 g/dL (32-36); MEAN CORPUSCULAR VOLUME 93 fL (80-99); MEAN PLATELET VOLUME 8.5 fL (9.0-12.2); MONOCYTES # (AUTO) 0.8 10^3/uL (0.0-1.0); MONOCYTES % (AUTO) 10 % (0-12); NEUTROPHILS # (AUTO) 4.4 10^3/uL (1.8-7.8); NEUTROPHILS % (AUTO) 59 % (42-75); PLATELET COUNT 336 10^3/uL (130-400); WHITE BLOOD COUNT 7.5 10^3/uL (4.3-11.0)
[2021-03-24 05:12] LABS: ALBUMIN 2.7 GM/DL (3.2-4.5); CHLORIDE 99 MMOL/L (98-107); POTASSIUM 4.1 MMOL/L (3.6-5.0); SODIUM 137 MMOL/L (135-145)
[2021-03-24 05:14] LABS: GLUCOSE 83 MG/DL (70-105)
[2021-03-24 05:15] LABS: TOTAL PROTEIN 5.6 GM/DL (6.4-8.2)
[2021-03-24 05:16] LABS: BILIRUBIN,TOTAL 0.4 MG/DL (0.1-1.0); CARBON DIOXIDE 26 MMOL/L (21-32)
[2021-03-24 05:18] LABS: ALKALINE PHOSPHATASE 144 U/L (40-136); CREATININE SERUM 0.64 MG/DL (0.60-1.30); GFR ESTIMATED > 60
[2021-03-24 05:19] LABS: BUN/CREATININE RATIO 9
[2021-03-24 05:21] LABS: ALANINE AMINOTRANSFERASE 18 U/L (0-55)
[2021-03-24] MEDS: MULTIVIT W/MINERALS TAB (THERAGRAN M) PO SCH (06:31)
--- NOTE | 2021-03-24 06:33 | Progress Note - Hospitalist ---
Subjective HPI/CC On Admission Date Seen by Provider: Mar 24, 2021 Time Seen by Provider: 09:30 Subjective/Events-last exam Pt doing a little better Very weak Hemoglobin 9.8 Ordering PT and OT Discontinue the catheter Very difficult situation considering the severe alcoholism Review of Systems General: Fatigue, Malaise Pulmonary: Dyspnea Focused Exam Time of Focused Exam: 11:00 Objective Exam Vital Signs Vital Signs Date Time Temp Pulse Resp B/P (MAP) Pulse Ox O2 Delivery O2 Flow Rate FiO2 03/25/21 04:27 36.6 88 20 146/92 (110) 94 High Flow N/C 1.50 03/23/21 09:27 25 Capillary Refill : Less Than 3 Seconds General Appearance: No Apparent Distress, WD/WN, Anxious, Chronically ill, Thin Respiratory: No Accessory Muscle Use, No Respiratory Distress, Decreased Breath Sounds Cardiovascular: Regular Rate, Rhythm Neurologic/Psychiatric: Alert, Oriented x3, Depressed Affect Results/Procedures Lab Patient resulted labs reviewed. Assessment/Plan Assessment and Plan Assess & Plan/Chief Complaint Assessment: Status post septic shock from pneumonia Severe alcoholism with alcohol withdrawal Anemia Plan: PT and OT Out of bed Strengthening Poor prognosis given severity of alcoholism Critical Care Critically Ill Patient ESTIVEN AQUINO DO Mar 24, 2021 06:33
[2021-03-24] MEDS: RT-ALBUTEROL/IPRATROPIUM 3 ML (DUONEB) VIAL INH SCH ×3 (07:17→20:42)
[2021-03-24 08:00] VITALS: BP 135/91
[2021-03-24] MEDS: FOLIC ACID 1 MG TAB PO SCH (08:27)
[2021-03-24] MEDS: PANTOPRAZOLE 40 MG (PROTONIX) TAB PO SCH (08:27)
[2021-03-24] MEDS: FLUoxetine HCL 20 MG (PROzac) CAP PO SCH (08:28)
[2021-03-24] MEDS: fentaNYL INJ 100 MCG/2 ML AMP IV PRN ×3 (10:39→21:52)
--- NOTE | 2021-03-24 11:50 | Physical Therapy Evaluation ---
PT Evaluation-General Medical Diagnosis Admission Date Mar 19, 2021 at 10:30 Medical Diagnosis: septic shock/pneumonia/ETOH withdrawal Onset Date: Mar 19, 2021 Therapy Diagnosis Therapy Diagnosis: debility Height/Weight Height (Feet): 6 Height (Inches): 1.00 Weight (Pounds): 188 Weight (Ounces): 0.0 Precautions Precautions/Isolations: Seizure, Fall Prevention, Standard Precautions Referral Physician: Светлана Reason for Referral: Evaluation/Treatment Medical History Pertinent Medical History: Alcoholism, Smoking Current History ER with shaking and chills Reviewed History: Yes Social History Home: Single Level Current Living Status: Alone Prior Prior Level of Function SCALE: Activities may be completed with or without assistive devices. 4-Tlnbatceqo-toqzwos completes the activity by him/herself with no assistance from a helper. 5-Set-up or Clean-up Assistance-helper sets up or cleans up; patient completes a ctivity. Lane assists only prior to or following the activity. 4-Supervision or Touching Assistance-helper provides verbal cues and/or touching/steadying and/or contact guard assistance as patient completes activity. Assistance may be provided throughout the activity or intermittently. 3-Partial/Moderate Assistance-helper does LESS THAN HALF the effort. Lane lifts, holds or supports trunk or limbs, but provides less than half the effort. 2-Substantial/Maximal Assistance-helper does MORE THAN HALF the effort. Lane lifts or holds trunk or limbs and provides more than half the effort. 6-Tmunrziqz-wurspc does ALL the effort. Patient does none of the effort to complete the activity. Or, the assistance of 2 or more helpers is required for the patient to complete the activity. If activity was not attempted, code reason: 7-Patient Refused. 9-Not Applicable-not attempted and the patient did not perform the activity before the current illness, exacerbation or injury. 10-Not Attempted due to Environmental Limitations-(lack of equipment, weather restraints, etc.). 88-Not Attempted due to Medical Conditions or Safety Concerns. Bed Mobility: 6 Transfers (B,C,W/C): 6 Gait: 6 Stairs: 6 Indoor Mobility (Ambulation): Independent Stairs: Independent Prior Devices Use: None PT Evaluation-Current Subjective Patient agrees to PT. Patient remembers this PT from previous stay. Objective Patient Orientation: Normal For Age ROM/Strength ROM Lower Extremities bilateral LE WFL Strength Lower Extremities 4/5 grossly bilateral LE Integumentary/Posture Bowel Incontinence: No Bladder Incontinence: No Posture WFL Neuromuscular (Tone, Coordination, Reflexes) grossly intact Sensory Vision: Functional Hearing: Functional Transfers Roll Left to Right (QC): 6 Lying to Sitting/Side of Bed(Q: 6 Sit to Stand (QC): 6 Chair/Eir-jz-Loizf Xfer(QC): 6 Gait Does the Patient Walk?: Yes Mode of Locomotion: Walk Anticipated Mode of Locomotion: Walk Walk 10 feet (QC): 5 Walk 50 ft with 2 Turns(QC): 5 Walk 150 ft (QC): 5 Distance: 500' Gait Assistive Device: FWW Comments/Gait Description safe and functional with no deviation Balance Sitting Static: Normal Sitting Dynamic: Normal Standing Static: Good Standing Dynamic: Good Assessment/Needs 60 y.o. male, will be seen short term by skilled PT to address functional mobility to ensure safe return to home at maximum LOF. Rehab Potential: Fair PT Short Term Goals Short Term Goals Time Frame: Mar 28, 2021 Roll Left & Right: 6 Sit to lyin Lying to sitting on side of be: 6 Sit to stand: 6 Chair/rzr-ef-rmyuf transfer: 6 Toilet transfer: 6 Walk 10 feet: 6 Walk 50 feet with two turns: 6 Walk 150 feet: 6 PT Plan Problem List Problem List: Activity Tolerance Treatment/Plan Treatment Plan: Continue Plan of Care Treatment Plan: Education, Functional Activity Danna, Functional Strength, Gait, Safety, Therapeutic Exercise, Transfers Treatment Duration: Mar 28, 2021 Frequency: 5 times per week Estimated Hrs Per Day: .25 hour per day Patient and/or Family Agrees t: Yes Time/GCodes Time In: 1120 Time Out: 1135 Total Billed Treatment Time: 15 Total Billed Treatment 1 visit EVModC 15 min NANCY ALLEN PT Mar 24, 2021 11:50
[2021-03-24 12:00] VITALS: BP 119/77
--- NOTE | 2021-03-24 15:11 | Occupational Therapy Eval ---
OT Evaluation-General/PLF Medical Diagnosis Admission Date Mar 19, 2021 at 10:30 Medical Diagnosis: septic shock/pneumonia/ETOH withdrawal Onset Date: Mar 19, 2021 Therapy Diagnosis Therapy Diagnosis: Decreased ADL skills Height/Weight Height (Feet): 6 Height (Inches): 1.00 Weight (Pounds): 188 Weight (Ounces): 0.0 Precautions Precautions/Isolations: Seizure, Fall Prevention, Standard Precautions Weight Bear Status Weight Bearing Restriction: Weight Bearing/Tolerated Referral Physician: Светлана Referral Reason: Activity Tolerance, Self Care, Evaluation/Treatment, Strengthening/ROM Medical History Pertinent Medical History: Alcoholism, Smoking Additional Medical History Alcohol, cirrhosis, neck/back fx. Current History Pt. fell, sustaining bilateral rib fx. Did not seek medical attention for approximately 2 weeks. Came to ER with SOA. Pt. found to have pneumonia/septic shock. Pt. also in alcohol withdrawal. Reviewed History: Yes Social History Home: Single Level Current Living Status: Alone ADL-Prior Level of Function SCALE: Activities may be completed with or without assistive devices. 3-Opftcrcphy-ymdsiji completes the activity by him/herself with no assistance from a helper. 5-Set-up or Clean-up Assistance-helper sets up or cleans up; patient completes activity. [place] assists only prior to or following the activity. 4-Supervision or Touching Assistance-helper provides verbal cues and/or touching/steadying and/or contact guard assistance as patient completes activity. Assistance may be provided throughout the activity or intermittently. 3-Partial/Moderate Assistance-helper does LESS THAN HALF the effort. [place] lifts, holds or supports trunk or limbs, but provides less than half the effort. 2-Substantial/Maximal Assistance-helper does MORE THAN HALF the effort. [place] lifts or holds trunk or limbs and provides more than half the effort. 8-Gclphtenk-wnciuk does ALL the effort. Patient does none of the effort to complete the activity. Or, the assistance of 2 or more helpers is required for the patient to complete the activity. If activity was not attempted, code reason: 7-Patient Refused. 9-Not Applicable-not attempted and the patient did not perform the activity before the current illness, exacerbation or injury. 10-Not Attempted due to Environmental Limitations-(lack of equipment, weather restraints, etc.). 88-Not Attempted due to Medical Conditions or Safety Concerns. ADL PLOF Comments Pt. states that he is typically independent with daily tasks. He lives in [facility]. 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 He does not use an assistive device for ambulation. Pt. states that he typically works out and has no difficulty with strength. Self Care: Independent Functional Cognition: Independent DME/Equipment: Tub/Shower DME/Equipment Comments Pt. states that he has a tub/shower combo, and that he has fallen in the past in it. 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 Drive Self: Yes OT Current Status Subjective Pt. reports pain when he breathes deeply, but does not report pain level. Please see note below. Mental Status/Objective Patient Orientation: Person, Place, Time, Situation Current Upper Extremity ROM WFL ADL-Treatment Eating (QC): 6 Oral Hygiene (QC): 6 (Pt. performed earlier at sink independently per him.) Shower/Bathe Self (QC): 5 (Completed earlier at sink per him after set up from nursing.) On/Off Footwear (QC): 6 (Pt. able to doff/don slipper socks with increased time.) Toileting Hygiene (QC): 6 (Per pt., he is able to cleanse rear leni area after having BM.) Other Treatments Pt. finishing ambulation with PT when OT enters from evaluation. He is independently ambulating with his walker. Pt. and OT talk in depth regarding current status, and needs for home. Pt. is educated about possible need of adaptive equipment to make LE dressing easier. Pt. declines at this time, but is aware it exists. Pt. also educated about toilet tongs, as he reports that twisting to cleanse leni area can be painful from broken ribs. Pt. is also educated about a tub/transfer bench for easier access into/out of bathtub, as he reports he has fallen before. Pt. states that he wants to get better, and is motivated. Pt. ambulates around room independently with OT present. Pt. states that he has cleaned up at sink earlier today, as well as brushed teeth and hair. OT educates pt. about importance of doing deep breathing exercises, as well as using inspirometer. He verbalizes understanding, and OT re-iterates this multiple times due to his pneumonia, and likely cause being shallow breathing from broken painful ribs. Pt. states that he has been doing exercises. De monstrates ability to reach feet, and complete footwear activity. Pt. educated about adaptive equipment if bending over/bringing feet up to him remains difficult. Pt. verbalizes understanding. No further OT needs warranted at this time. Pt. has met all goals. Education OT Patient Education: Correct positioning, Modified ADL techniques, Progress toward Goal/Update tx plan, Purpose of tx/functional activities, Reviewed precautions, Rehab process, Transfer techniques, Use of adapted equipment Teaching Recipient: Patient Teaching Methods: Demonstration, Discussion Response to Teaching: Verbalize Understanding, Return Demonstration OT Bit Tripoler Goals Bit Tripoler Goals Time Frame: Mar 24, 2021 Additional Goals: 1-Demonstrate ADL Tasks, 2-Verbalize Understanding 1=Demonstrate adherence to instructed precautions during ADL tasks. 2=Patient will verbalize/demonstrate understanding of assistive devices/modifications for ADL. 3=Patient will improve strength/tolerance for activity to enable patient to perform ADL's. Pt. has been educated in possible adaptive equipment needs, and has verbalized understanding if difficulty persists with reaching feet for LE ADLs. Pt. has demonstrated independence with mobility, and reports independence/set up assist with bathing, toileting, and grooming. Goals met at this time and pt. has no further OT needs due to independence level. OT Education/Plan Problem List/Assessment Assessment: Decreased Activ Tolerance Discharge Recommendations Plan/Recommendations: Discharge/Goals Met Therapy Discharge Recommendati: Home & Family Treatment Plan/Plan of Care Treatment,Training & Education: Yes Plan of Care: OTHER Treatment Duration: Mar 24, 2021 Frequency: 1 time per week Estimated Hrs Per Day: .25 hour per day Agreement: Yes Rehab Potential: Good Time/GCodes Start Time: 11:30 Stop Time: 11:50 Total Time Billed (hr/min): 20 Billed Treatment Time 1, EVL x 20minutes Discharge RAUDEL WAGNER OT Mar 24, 2021 15:11
[2021-03-24 15:36] VITALS: BP 129/76
[2021-03-24] MEDS: ENOXAPARIN 40 MG/0.4 ML (LOVENOX) SYR SQ SCH (16:18)
[2021-03-24] MEDS: ceFAZolin 2 GM/50 ML (PRE-MIXED) IV SCH ×2 (16:27→21:52)
[2021-03-24 19:11] VITALS: BP 109/67
[2021-03-25] VITALS (7 sets, daily range): BP systolic 114–146; BP diastolic 68–92
[2021-03-25] MEDS: HYDROcodone/APAP 5 MG/325 MG (LORTAB) TAB PO PRN ×3 (00:50→07:42)
[2021-03-25] MEDS: LORazepam 1 MG (ATIVAN) TAB PO PRN ×10 (00:50→23:04)
[2021-03-25] MEDS: RT-ALBUTEROL/IPRATROPIUM 3 ML (DUONEB) VIAL INH SCH ×4 (02:02→22:39)
[2021-03-25] MEDS: ceFAZolin 2 GM/50 ML (PRE-MIXED) IV SCH ×3 (06:08→23:04)
[2021-03-25] MEDS: MULTIVIT W/MINERALS TAB (THERAGRAN M) PO SCH (06:08)
[2021-03-25 06:29] LABS: BASOPHILS # (AUTO) 0.1 10^3/uL (0.0-0.1); BASOPHILS % (AUTO) 2 % (0-10); EOSINOPHILS # (AUTO) 0.3 10^3/uL (0.0-0.3); EOSINOPHILS % (AUTO) 4 % (0-10); HEMATOCRIT 29 % (40-54); HEMOGLOBIN 9.1 g/dL (13.3-17.7); LYMPHOCYTES # (AUTO) 1.8 10^3/uL (1.0-4.0); LYMPHOCYTES % (AUTO) 27 % (12-44); MEAN CORPUSCULAR HEMOGLOBIN 30 pg (25-34); MEAN CORPUSCULAR HGB CONC 32 g/dL (32-36); MEAN CORPUSCULAR VOLUME 94 fL (80-99); MEAN PLATELET VOLUME 8.5 fL (9.0-12.2); MONOCYTES # (AUTO) 0.8 10^3/uL (0.0-1.0); MONOCYTES % (AUTO) 11 % (0-12); NEUTROPHILS # (AUTO) 3.6 10^3/uL (1.8-7.8); NEUTROPHILS % (AUTO) 53 % (42-75); PLATELET COUNT 340 10^3/uL (130-400); WHITE BLOOD COUNT 6.8 10^3/uL (4.3-11.0)
--- NOTE | 2021-03-25 06:31 | Progress Note - Hospitalist ---
Subjective HPI/CC On Admission Date Seen by Provider: Mar 25, 2021 Time Seen by Provider: 09:00 Subjective/Events-last exam Pt doing a lot better Walking with physical therapy Very shaky and weak Hemoglobin 9.1 Decrease pain medication Discharge soon Severe alcoholism precludes anything but a poor prognosis He informed licensed clinical social worker that his alcohol use does not really need to be discussed because there is not a problem Review of Systems General: Fatigue, Malaise Focused Exam Time of Focused Exam: 11:00 Objective Exam Vital Signs Vital Signs Date Time Temp Pulse Resp B/P (MAP) Pulse Ox O2 Delivery O2 Flow Rate FiO2 03/26/21 04:37 36.2 86 18 128/80 (96) 94 High Flow N/C 1.50 03/23/21 09:27 25 Capillary Refill : Less Than 3 Seconds General Appearance: No Apparent Distress, WD/WN, Anxious, Chronically ill Respiratory: Lungs Clear Cardiovascular: Regular Rate, Rhythm Neurologic/Psychiatric: Alert Results/Procedures Lab Laboratory Tests 03/25/21 06:16 Patient resulted labs reviewed. Assessment/Plan Assessment and Plan Assess & Plan/Chief Complaint Assessment: Status post septic shock from pneumonia Severe alcoholism with alcohol withdrawal Anemia Plan: PT and OT Out of bed Strengthening Poor prognosis given severity of alcoholism 03/25/2021: Decrease pain meds Severe alcoholism PT and OT Discharge soon Really needs to be in a prison so he does not drink alcohol Critical Care Critically Ill Patient ESTIVEN AQUINO DO Mar 25, 2021 06:31
[2021-03-25 06:35] LABS: ALBUMIN 2.7 GM/DL (3.2-4.5); CHLORIDE 100 MMOL/L (98-107); POTASSIUM 3.7 MMOL/L (3.6-5.0); SODIUM 136 MMOL/L (135-145)
[2021-03-25 06:37] LABS: CALCIUM 7.9 MG/DL (8.5-10.1)
[2021-03-25 06:38] LABS: GLUCOSE 85 MG/DL (70-105); TOTAL PROTEIN 5.4 GM/DL (6.4-8.2)
[2021-03-25 06:39] LABS: CARBON DIOXIDE 26 MMOL/L (21-32)
[2021-03-25 06:40] LABS: BILIRUBIN,TOTAL 0.3 MG/DL (0.1-1.0)
[2021-03-25 06:41] LABS: ALKALINE PHOSPHATASE 134 U/L (40-136); CREATININE SERUM 0.68 MG/DL (0.60-1.30); GFR ESTIMATED > 60
[2021-03-25 06:42] LABS: BUN/CREATININE RATIO 9
[2021-03-25 06:44] LABS: ALANINE AMINOTRANSFERASE 15 U/L (0-55)
[2021-03-25] MEDS: PANTOPRAZOLE 40 MG (PROTONIX) TAB PO SCH (07:43)
[2021-03-25] MEDS: FLUoxetine HCL 20 MG (PROzac) CAP PO SCH (07:43)
[2021-03-25] MEDS: FOLIC ACID 1 MG TAB PO SCH (07:43)
[2021-03-25] MEDS: fentaNYL INJ 100 MCG/2 ML AMP IV PRN ×2 (10:15→14:55)
--- NOTE | 2021-03-25 10:55 | Physical Therapy Daily Note ---
PT Daily Note-Current Subjective Patient reports he is up independently in room and hallway. RN confirms. Agrees to PT. Mental Status Patient Orientation: Normal For Age Transfers SCALE: Activities may be completed with or without assistive devices. 8-Mepycuzadq-sngmmsk completes the activity by him/herself with no assistance from a helper. 5-Set-up or Clean-up Assistance-helper sets up or cleans up; patient completes activity. [place] assists only prior to or following the activity. 4-Supervision or Touching Assistance-helper provides verbal cues and/or touching/steadying and/or contact guard assistance as patient completes activity. Assistance may be provided throughout the activity or intermittently. 3-Partial/Moderate Assistance-helper does LESS THAN HALF the effort. [place] lifts, holds or supports trunk or limbs, but provides less than half the effort. 2-Substantial/Maximal Assistance-helper does MORE THAN HALF the effort. [place] lifts or holds trunk or limbs and provides more than half the effort. 3-Uqmnjcfib-nvozzn does ALL the effort. Patient does none of the effort to complete the activity. Or, the assistance of 2 or more helpers is required for the patient to complete the activity. If activity was not attempted, code reason: 7-Patient Refused. 9-Not Applicable-not attempted and the patient did not perform the activity before the current illness, exacerbation or injury. 10-Not Attempted due to Environmental Limitations-(lack of equipment, weather restraints, etc.). 88-Not Attempted due to Medical Conditions or Safety Concerns. Sit to Stand (QC): 6 Gait Training Does the Patient Walk?: Yes Distance: 800' Walk 10 feet (QC): 6 Walk 50 ft with 2 Turns(QC): 6 Walk 150 ft (QC): 6 Gait Assistive Device: FWW FWW for energy conservation/functional gait sequence Assessment Patient is currently at independent [facility] with all gross motor skills safely. PT to dismiss patient from services at this time. PT Short Term Goals Short Term Goals Time Frame: Mar 28, 2021 Roll Left & Right: 6 Sit to lyin Lying to sitting on side of be: 6 Sit to stand: 6 Chair/dkq-ry-liutu transfer: 6 Toilet transfer: 6 Walk 10 feet: 6 Walk 50 feet with two turns: 6 Walk 150 feet: 6 PT Plan Treatment/Plan Treatment Plan: Discontinue PT, goals met Treatment Plan: Education, Functional Activity Danna, Functional Strength, Gait, Safety, Therapeutic Exercise, Transfers Treatment Duration: Mar 28, 2021 Frequency: 5 times per week Estimated Hrs Per Day: .25 hour per day Patient and/or Family Agrees t: Yes Time/GCodes Time In: 1034 Time Out: 1044 Total Billed Treatment Time: 10 Total Billed Treatment 1 visit FA 10 min NANCY ALLEN PT Mar 25, 2021 10:55
[2021-03-25] MEDS: ENOXAPARIN 40 MG/0.4 ML (LOVENOX) SYR SQ SCH (16:38)
[2021-03-26] MEDS: RT-ALBUTEROL/IPRATROPIUM 3 ML (DUONEB) VIAL INH SCH ×2 (02:21→08:50)
[2021-03-26] MEDS: LORazepam 1 MG (ATIVAN) TAB PO PRN ×4 (02:37→13:19)
[2021-03-26 04:37] VITALS: BP 128/80
[2021-03-26] MEDS: ceFAZolin 2 GM/50 ML (PRE-MIXED) IV SCH (06:12)
[2021-03-26] MEDS: MULTIVIT W/MINERALS TAB (THERAGRAN M) PO SCH (06:12)
[2021-03-26 06:30] LABS: BASOPHILS # (AUTO) 0.1 10^3/uL (0.0-0.1); BASOPHILS % (AUTO) 2 % (0-10); EOSINOPHILS # (AUTO) 0.4 10^3/uL (0.0-0.3); EOSINOPHILS % (AUTO) 6 % (0-10); HEMATOCRIT 28 % (40-54); HEMOGLOBIN 9.1 g/dL (13.3-17.7); LYMPHOCYTES # (AUTO) 1.8 10^3/uL (1.0-4.0); LYMPHOCYTES % (AUTO) 28 % (12-44); MEAN CORPUSCULAR HEMOGLOBIN 31 pg (25-34); MEAN CORPUSCULAR HGB CONC 32 g/dL (32-36); MEAN CORPUSCULAR VOLUME 94 fL (80-99); MEAN PLATELET VOLUME 8.3 fL (9.0-12.2); MONOCYTES # (AUTO) 0.9 10^3/uL (0.0-1.0); MONOCYTES % (AUTO) 15 % (0-12); NEUTROPHILS # (AUTO) 2.9 10^3/uL (1.8-7.8); NEUTROPHILS % (AUTO) 46 % (42-75); PLATELET COUNT 307 10^3/uL (130-400); WHITE BLOOD COUNT 6.3 10^3/uL (4.3-11.0)
[2021-03-26 06:42] LABS: ALBUMIN 2.7 GM/DL (3.2-4.5); CHLORIDE 101 MMOL/L (98-107); POTASSIUM 3.8 MMOL/L (3.6-5.0); SODIUM 135 MMOL/L (135-145)
[2021-03-26 06:43] LABS: CALCIUM 7.8 MG/DL (8.5-10.1)
[2021-03-26 06:44] LABS: GLUCOSE 86 MG/DL (70-105)
[2021-03-26 06:45] LABS: TOTAL PROTEIN 5.4 GM/DL (6.4-8.2)
[2021-03-26 06:46] LABS: BILIRUBIN,TOTAL 0.3 MG/DL (0.1-1.0); CARBON DIOXIDE 26 MMOL/L (21-32)
[2021-03-26 06:48] LABS: ALKALINE PHOSPHATASE 126 U/L (40-136); CREATININE SERUM 0.68 MG/DL (0.60-1.30); GFR ESTIMATED > 60
[2021-03-26 06:49] LABS: BUN/CREATININE RATIO 7
[2021-03-26 06:51] LABS: ALANINE AMINOTRANSFERASE 14 U/L (0-55)
[2021-03-26 08:00] VITALS: BP 125/59
[2021-03-26] MEDS: FLUoxetine HCL 20 MG (PROzac) CAP PO SCH (09:25)
[2021-03-26] MEDS: FOLIC ACID 1 MG TAB PO SCH (09:25)
[2021-03-26] MEDS: PANTOPRAZOLE 40 MG (PROTONIX) TAB PO SCH (09:25)
[2021-03-26] MEDS: fentaNYL INJ 100 MCG/2 ML AMP IV PRN (10:05)
[2021-03-26] MEDS ORDERED: FOLI1TAB33 PO (11:04)
[2021-03-26] MEDS ORDERED: PANT40TA52 PO (11:04)
--- NOTE | 2021-03-26 11:05 | Discharge Summary ---
Discharge Summary Hospital Course Was the Problem List Reviewed?: Yes Problems/Dx: (1) Acute respiratory failure Status: Acute Qualifiers: Qualified Codes: J96.01 - Acute respiratory failure with hypoxia (2) Anemia (3) Left lower lobe pneumonia Status: Acute (4) Alcohol dependence with intoxication, unspecified Status: Acute Hospital Course Date of Admission: Mar 19, 2021 at 10:30 Admission Diagnosis : Family Physician/Provider: Jayla Thompson Aprn Date of Discharge: 03/26/21 Discharge Diagnosis: Septic shock, pneumonia, severe alcoholism with alcohol withdrawal, chronic anemia Hospital Course: Hospital course: Pt had a complex hospital course for eight days when he was admitted for septic shock from pneumonia and alcoholism with alcohol withdrawal, a recurrent issue. He was able to be managed in the ICU with aggressive care, he was able to recover, transferred down to fourth floor, maintained on pain medication for the rib fractures and alcohol withdrawal. Multiple attempts to get him the help he needs to cease alcohol consumption has not been well received and he doesnt think he has a problem. Poor prognosis given considering the severe alcoholism. Labs and Pending Lab Test: Laboratory Tests 03/26/21 06:20: White Blood Count 6.3, Red Blood Count 2.98L, Hemoglobin 9.1L, Hematocrit 28L, Mean Corpuscular Volume 94, Mean Corpuscular Hemoglobin 31, Mean Corpuscular Hemoglobin Concent 32, Red Cell Distribution Width 18.0H, Platelet Count 307, Mean Platelet Volume 8.3L, Immature Granulocyte % (Auto) 4, Neutrophils (%) (Auto) 46, Lymphocytes (%) (Auto) 28, Monocytes (%) (Auto) 15H, Eosinophils (%) (Auto) 6, Basophils (%) (Auto) 2, Neutrophils # (Auto) 2.9, Lymphocytes # (Auto) 1.8, Monocytes # (Auto) 0.9, Eosinophils # (Auto) 0.4H, Basophils # (Auto) 0.1, Immature Granulocyte # (Auto) 0.2H, Sodium Level 135, Potassium Level 3.8, Chloride Level 101, Carbon Dioxide Level 26, Anion Gap 8, Blood Urea Nitrogen 5L , Creatinine 0.68, Estimat Glomerular Filtration Rate > 60, BUN/Creatinine Ratio 7, Glucose Level 86, Calcium Level 7.8L, Corrected Calcium 8.8, Total Bilirubin 0.3, Aspartate Amino Transf (AST/SGOT) 21, Alanine Aminotransferase (ALT/SGPT) 14, Alkaline Phosphatase 126, Total Protein 5.4L, Albumin 2.7L Microbiology 03/19/21 MRSA Screen - Final, Complete MRSA not isolated 03/19/21 Blood Culture - Final, Complete Staphylococcus epidermidis Home Meds Active Folic Acid 1 Mg Tablet 1 Mg PO DAILY Pantoprazole Sodium 40 Mg Tablet.dr 40 Mg PO DAILY Reported Zyrtec (Cetirizine HCl) 10 Mg Tablet 10 Mg PO DAILY Men's 50 Plus Multivitamin Tab (Multivit-Min/Folic/Vit K/Lycop) 1 Each Tablet 1 Each PO DAILY Aspirin EC (Aspirin) 81 Mg Tablet.dr 81 Mg PO DAILY Fluoxetine HCl 40 Mg Capsule 40 Mg PO DAILY Assessment/Pt Instructions PCP in 1 week Discharge Planning: <30 minutes discharge planning Discharge Physical Examination Vital Signs Vital Signs Date Time Temp Pulse Resp B/P (MAP) Pulse Ox O2 Delivery O2 Flow Rate FiO2 03/26/21 09:00 Room Air 03/26/21 08:51 92 03/26/21 08:00 36.6 73 17 125/59 (81) 03/26/21 04:37 1.50 03/23/21 09:27 25 General Appearance: No Apparent Distress, WD/WN Respiratory: Lungs Clear Cardiovascular: Regular Rate, Rhythm Neurologic/Psychiatric: Alert, Oriented x3 Allergies: Coded Allergies: No Known Drug Allergies (Unverified , 10/16/20) Discharge Summary Date of Admission Mar 19, 2021 at 10:30 Date of Discharge Discharge Date: Mar 26, 2021 Comfort Measures/ Advance Care discuss with: patient Time spent on discussion (min): 10 Discharge Diagnosis Assessment: Status post septic shock from pneumonia Severe alcoholism with alcohol withdrawal Anemia Plan: PT and OT Out of bed Strengthening Poor prognosis given severity of alcoholism 03/25/2021: Decrease pain meds Severe alcoholism PT and OT Discharge soon Really needs to be in a jail so he does not drink alcohol (1) Anemia (2) Acute respiratory failure Status: Acute Qualifiers: Qualified Codes: J96.01 - Acute respiratory failure with hypoxia (3) Left lower lobe pneumonia Status: Acute (4) Alcohol dependence with intoxication, unspecified Status: Acute ESTIVEN AQUINO DO Mar 26, 2021 11:05
[2021-03-26 14:40] VITALS: BP 109/63
== END 2021-03-26 14:40 | disposition home or self-care (01) | DRG 871 ==
LOC: EDUNIT# 07:07 → ER 07:09 → ICU 10:30 → 4TH 03-23 10:47
PROVIDERS: ADMIT Family Medicine; ATTEND Internal Medicine
PROC: 02HV33Z Insertion of Infusion Device into Superior Vena Cava, Percutaneous Approach (ICD-10-PCS; principal; 2021-03-19)
DX: A41.9 Sepsis, unspecified organism (principal); R65.21 Severe sepsis with septic shock; J18.9 Pneumonia, unspecified organism; J96.01 Acute respiratory failure with hypoxia; M62.82 Rhabdomyolysis; E87.2 Acidosis; F10.230 Alcohol dependence with withdrawal, uncomplicated; J90 Pleural effusion, not elsewhere classified; K74.60 Unspecified cirrhosis of liver; S22.41XD Multiple fractures of ribs, right side, subsequent encounter for fracture with routine healing; Y90.6 Blood alcohol level of 120-199 mg/100 ml; F41.9 Anxiety disorder, unspecified; F32.9 Major depressive disorder, single episode, unspecified; F10.229 Alcohol dependence with intoxication, unspecified; D64.9 Anemia, unspecified; Z79.82 Long term (current) use of aspirin; Z79.899 Other long term (current) drug therapy; Z87.891 Personal history of nicotine dependence
CPT/HCPCS: 36415; 36600; 51702; 71045; 74160; 80048; 80053; 80306; 80320; 81000; 82140; 82550; 82805; 82947; 83605; 83735; 84100; 85007; 85025; 85027; 85610; 85730; 86703; 87040; 87077; 87081; 87186; 94640; 94664; 94760; 96361; 96365; 96366; 96367; 96375; 96376

== ENCOUNTER → 2021-04-09 | Outpatient (CLI) | payer OTHER ==
[~2021-04-09] MED LIST changes: +FOLI1TAB33 PO
--- NOTE | 2021-04-09 12:49 | Diagnostic Imaging Report ---
EXAMINATION: Chest 2 view HISTORY: HX OF PNEUMONIA COMPARISON: Chest radiograph 03/20/2021 FINDINGS: Heart size and pulmonary vasculature are normal. There has been improved aeration of the lungs compared to 03/20/2021. There are coarse interstitial opacities within the lung bases. No focal consolidation. Minimal blunting left costophrenic angle. No pneumothorax. Degenerative changes of the thoracic spine. Osseous structures are otherwise intact. IMPRESSION: 1. Improved aeration of the lungs with left pleural thickening or trace pleural fluid. 2. Minimal coarse interstitial opacities in the lung bases which could represent residual pneumonia, scarring, or atelectasis. Dictated by: Dictated on workstation # [id number]
== END ==
LOC: RAD FS 11:45
PROVIDERS: ATTEND Nurse Practitioner Family
DX: Z87.01 Personal history of pneumonia (recurrent) (principal); Z87.81 Personal history of (healed) traumatic fracture
CPT/HCPCS: 71046

== ENCOUNTER 2021-04-15 12:13 | Emergency (ER) | payer OTHER ==
[2021-04-15 12:26] VITALS: BP 107/47
== END 2021-04-15 12:25 | disposition home or self-care (01) ==
LOC: EDUNIT# 12:13 → ER FS 12:16
DX: Z48.02 Encounter for removal of sutures (principal)

== ENCOUNTER 2021-06-07 18:49 | Emergency (ER) | payer SELFPAY ==
[~2021-06-07] VITALS: Ht 182.8 cm; Wt 81.6 kg
--- NOTE | 2021-06-07 18:56 | ED General ---
General Stated Complaint: AMS Source of Information: Patient, Family, Old Records History of Present Illness Date Seen by Provider: Jun 07, 2021 Time Seen by Provider: 18:52 Initial Comments 61-year-old male presenting with his daughters to the emergency department. He has a history of chronic alcoholism and has reportedly been drinking fireball in the last 4 to 5 days. He has had several falls in the last 5 days and is having pain in the left chest and middle of his back. He has had some confusion and is having auditory and visual hallucinations. He reports not had any alcohol since yesterday when he last drank 1/5 of fireball whiskey. He has had nausea but no vomiting. He reports having some black stools. He has had some epigastric tenderness along with his nausea. He has a history of liver disease and esophageal varices but denies having any hematemesis or bright red blood per rectum. His daughters report that he does have a breathalyzer in his truck and was able to blow on it to get his vehicle started so they felt it was true that he had not been drinking alcohol today. He has had similar episodes in the past and his daughters report he has had withdrawal seizures and dehydration before. Location Injury Occurred: home Timing/Duration: 5-6 Days (repeated falls over the last 5-6 days) Severity: Severe (pain in left chest wall and mid back) Modifying Factors: worse with Movement Associated Systoms: Chest Pain (left chest wall/rib pain), Cough; No Diaphoresis, No Fever/Chills; Headaches, Loss of Appetite, Malaise, Nausea/Vomiting; No Rash, No Seizure, No Shortness of Air; Weakness Allergies and Home Medications Allergies Coded Allergies: No Known Drug Allergies (Unverified , 10/16/20) Patient Home Medication List Home Medication List Reviewed: Yes Aspirin (Aspirin EC) 81 Mg Tablet.dr, 81 MG PO DAILY, (Reported) Entered as Reported by: JUANITA MCGARRY on 03/10/21 1044 Cetirizine HCl (Zyrtec) 10 Mg Tablet, 10 MG PO DAILY, (Reported) Entered as Reported by: JUANITA MCGARRY on 03/10/21 1045 Fluoxetine HCl (Fluoxetine HCl) 40 Mg Capsule, 40 MG PO DAILY, (Reported) Entered as Reported by: JUANITA MCGARRY on 03/10/21 1044 Folic Acid (Folic Acid) 1 Mg Tablet, 1 MG PO DAILY Prescribed by: ESTIVEN AQUINO on 03/26/21 1104 Multivit-Min/Folic/Vit K/Lycop (Men's 50 Plus Multivitamin Tab) 1 Each Tablet, 1 EACH PO DAILY, (Reported) Entered as Reported by: JUANITA MCGARRY on 03/10/21 1044 Pantoprazole Sodium (Pantoprazole Sodium) 40 Mg Tablet.dr, 40 MG PO DAILY Prescribed by: ESTIVEN AQUINO on 03/26/21 1104 Review of Systems Review of Systems Constitutional: No chills, No fever; malaise, weakness EENTM: No ear discharge, No blurred vision, No epistaxis, No nose congestion Respiratory: cough; No hemoptysis, No stridor, No wheezing Cardiovascular: chest pain (left sided after falling and thinks he broke some ribs) Gastrointestinal: abdominal pain (epigastric and RUQ); No hematemesis; loss of appetite, melena, nausea, vomiting Genitourinary: decreased output Musculoskeletal: back pain (middle of back after recurrent falls in last 5 days) Skin: other (multiple bruises in various stages of healing) Psychiatric/Neurological: Headache; Denies Seizure; Tremors, Weakness Hematologic/Lymphatic: Easy Bruising Past Okfojsv-Nslnbd-Pofmsp Hx Patient Social History Tobacco Use?: Yes Tobacco type used: Cigarettes Smoking Status: Current Everyday Smoker Alcohol Use?: Yes Alcohol type: Hard Liquor (Fireball Whiskey) Alcohol Frequency: Daily Immunizations Up To Date Tetanus Booster (TDap): Less than 5yrs Seasonal Allergies Seasonal Allergies: No Past Medical History Surgeries: Yes (INGUINAL HERNIA REPAIR;BILAT CLAVICLE FX/ORIF;C-SPINE FX/FUSION AGE 17) Abdominal, Orthopedic Respiratory: No Currently Using CPAP: No Currently Using BIPAP: No Cardiac: No Neurological: Yes (HEPATIC ENCEPHALOPATHY) Sexually Transmitted Disease: No HIV/AIDS: No Genitourinary: No Gastrointestinal: Yes (S/P INGUINAL HERNIA REPAIR;HEPATIC ENCEPHALOPATHY) Abdominal Hernia, Liver Disease/Jaundice Musculoskeletal: Yes (C-SPINE FRACTURE /ORIF AGE 17; BILAT CLAVICLE FX/ORIF) Fractures Endocrine: No HEENT: No Loss of Vision: Denies Hearing Impairment: Denies Cancer: No Psychosocial: Yes (SUICIDAL IDEATION, ALCOHOLISM) Anxiety, Depression Integumentary: No Blood Disorders: No Adverse Reaction/Blood Tranf: No Family Medical History Patient reports no known family medical history. Hypertension Physical Exam Vital Signs Vital Signs - First Documented 06/07/21 18:50 Temp 36.8 Pulse 85 Resp 26 B/P (MAP) 117/72 (87) Pulse Ox 100 O2 Delivery Room Air Capillary Refill : Height, Weight, BMI Height: 6'1.00" Weight: 188lbs. 0.0oz. 85.720695bh; 24.45 BMI Method:Estimated General Appearance: Chronically ill, Other (abrasion to left face, bruising to right forehead, disheveled appearance and unkempt) HEENT: PERRL/EOMI, TMs Normal; No Moist Mucous Membranes (slightly dry mucous membranes), No Photophobia; Other (Negative conner sign, negative raccoon sign, abrasion and contusion with ecchymosis to the right forehead, abrasion to the left side of his face, abrasion to the right parietal and occipital areas. No CSF otorrhea or rhinorrhea.) Neck: Full Range of Motion, Normal Inspection, Non Tender, Supple Respiratory: Normal Breath Sounds, No Accessory Muscle Use, No Respiratory Distress; No Rhonci, No Stridor; Other (tender to palpation left lateral ribs without crepitus) Cardiovascular: Regular Rate, Rhythm, Normal Peripheral Pulses Gastrointestinal: Normal Bowel Sounds, No Pulsatile Mass, Soft; No Distended, No Guarding, No Rebound; Tenderness (epigastric and RUQ tenderness to palpation) Rectal: Deferred (pt refused) Back: Vertebral Tenderness (mid back around lower thoracic and upper lumbar spine) Extremity: Normal Capillary Refill, No Calf Tenderness, Pedal Edema (trace BLE) Neurologic/Psychiatric: Alert, furniture dipper II-XII Norm as Tested, Disoriented (oriented to self and place), Sensory Deficit (decreased sensation to light touch in BLE/feet) Skin: Warm/Dry, Ecchymosis (multiple bruises in various stages of healing) Procedures/Interventions Date of ETT Placement: Oct 17, 2020 Progress/Results/Core Measures Suspected Sepsis SIRS Temperature: Pulse: Respiratory Rate: Laboratory Tests 06/07/21 19:08: White Blood Count 7.5 Blood Pressure / Mean: Laboratory Tests 06/07/21 19:08: Creatinine 1.57H, INR Comment 1.0, Platelet Count 331, Total Bilirubin 1.9H Results/Orders Lab Results Laboratory Tests Test 06/07/21 19:08 06/07/21 19:44 06/07/21 20:28 Range/Units White Blood Count 7.5 4.3-11.0 10^3/uL Red Blood Count 2.91 L 4.30-5.52 10^6/uL Hemoglobin 8.2 L 13.3-17.7 g/dL Hematocrit 25 L 40-54 % Mean Corpuscular Volume 85 80-99 fL Mean Corpuscular Hemoglobin 28 25-34 pg Mean Corpuscular Hemoglobin Concent 33 32-36 g/dL Red Cell Distribution Width 16.5 H 10.0-14.5 % Platelet Count 331 130-400 10^3/uL Mean Platelet Volume 8.8 L 9.0-12.2 fL Immature Granulocyte % (Auto) 2 % Neutrophils (%) (Auto) 59 42-75 % Lymphocytes (%) (Auto) 22 12-44 % Monocytes (%) (Auto) 17 H 0-12 % Eosinophils (%) (Auto) 0 0-10 % Basophils (%) (Auto) 0 0-10 % Neutrophils # (Auto) 4.5 1.8-7.8 X 10^3 Lymphocytes # (Auto) 1.6 1.0-4.0 X 10^3 Monocytes # (Auto) 1.3 H 0.0-1.0 X 10^3 Eosinophils # (Auto) 0.0 0.0-0.3 10^3/uL Basophils # (Auto) 0.0 0.0-0.1 10^3/uL Immature Granulocyte # (Auto) 0.1 0.0-0.1 10^3/uL Prothrombin Time 13.5 12.2-14.7 SEC INR Comment 1.0 0.8-1.4 Activated Partial Thromboplast Time 26 24-35 SEC Sodium Level 124 *L 135-145 MMOL/L Potassium Level 2.8 L 3.6-5.0 MMOL/L Chloride Level 81 L 98-107 MMOL/L Carbon Dioxide Level 21 21-32 MMOL/L Anion Gap 22 H 5-14 MMOL/L Blood Urea Nitrogen 36 H 7-18 MG/DL Creatinine 1.57 H 0.60-1.30 MG/DL Estimat Glomerular Filtration Rate 45 BUN/Creatinine Ratio 23 Glucose Level 236 H 70-105 MG/DL Calcium Level 8.2 L 8.5-10.1 MG/DL Corrected Calcium 8.7 8.5-10.1 MG/DL Total Bilirubin 1.9 H 0.1-1.0 MG/DL Aspartate Amino Transf (AST/SGOT) 90 H 5-34 U/L Alanine Aminotransferase (ALT/SGPT) 119 H 0-55 U/L Alkaline Phosphatase 120 40-136 U/L Ammonia 32 11-32 UMOL/L Total Protein 6.6 6.4-8.2 GM/DL Albumin 3.4 3.2-4.5 GM/DL Lipase 46 8-78 U/L Salicylates Level < 0.3 L 5.0-20.0 MG/DL Acetaminophen Level < 10 L 10-30 UG/ML Serum Alcohol < 10 <10 MG/DL Influenza Type A (RT-PCR) Not Detected Not Detecte Influenza Type B (RT-PCR) Not Detected Not Detecte SARS-CoV-2 RNA (RT-PCR) Not Detected Not Detecte Urine Color YELLOW Urine Clarity CLEAR Urine pH 6.0 5-9 Urine Specific [place] 1.020 1.016-1.022 Urine Protein NEGATIVE NEGATIVE Urine Glucose (UA) NEGATIVE NEGATIVE Urine Ketones 1+ H NEGATIVE Urine Nitrite NEGATIVE NEGATIVE Urine Bilirubin 2+ H NEGATIVE Urine Urobilinogen 1.0 < = 1.0 MG/DL Urine Leukocyte Esterase NEGATIVE NEGATIVE Urine RBC (Auto) TRACE-I NEGATIVE Urine RBC NONE /HPF Urine WBC NONE /HPF Urine Crystals NONE /LPF Urine Bacteria TRACE /HPF Urine Casts PRESENT /LPF Urine Hyaline Casts 10-25 H /LPF Urine Granular Casts 0-2 H /LPF Urine Mucus SMALL H /LPF Urine Culture Indicated NO Urine Opiates Screen NEGATIVE NEGATIVE Urine Oxycodone Screen NEGATIVE NEGATIVE Urine Methadone Screen NEGATIVE NEGATIVE Urine Propoxyphene Screen NEGATIVE NEGATIVE Urine Barbiturates Screen NEGATIVE NEGATIVE Ur Tricyclic Antidepressants Screen NEGATIVE NEGATIVE Urine Phencyclidine Screen NEGATIVE NEGATIVE Urine Amphetamines Screen POSITIVE H NEGATIVE Urine Methamphetamines Screen NEGATIVE NEGATIVE Urine Benzodiazepines Screen POSITIVE H NEGATIVE Urine Cocaine Screen NEGATIVE NEGATIVE Urine Cannabinoids Screen NEGATIVE NEGATIVE My Orders Orders - BLAKE MCCOY MD Ua Culture If Indicated (06/07/21 18:56) Cbc With Automated Diff (06/07/21 18:56) Comprehensive Metabolic Panel (06/07/21 18:56) Alcohol (06/07/21 18:56) Drug Screen Stat (Urine) (06/07/21 18:56) Acetaminophen (06/07/21 18:56) Salicylate (06/07/21 18:56) Ekg Tracing (06/07/21 18:56) Ed Iv/Invasive Line Start (06/07/21 18:56) Monitor-Rhythm Ecg Trace Only (06/07/21 18:56) Lipase (06/07/21 19:29) Ns Iv 1000 Ml (Sodium Chloride 0.9%) (06/07/21 19:29) Pantoprazole Injection (Protonix Injecti (06/07/21 19:29) Ct Head/Cervical Spine Wo (06/07/21 19:29) Ct Chest/Abdomen/Pelvis W (06/07/21 19:29) Iohexol Injection (Omnipaque 350 Mg/Ml 1 (06/07/21 19:45) Received Contrast (Hold Metformin- Contr (06/07/21 19:45) Ns (Ivpb) (Sodium Chloride 0.9% Ivpb Bag (06/07/21 19:45) Ammonia (06/07/21 19:36) Covid 19 Inhouse Test (06/07/21 19:42) Influenza A And B By Pcr (06/07/21 19:42) Isolation Central Supply Req (06/07/21 19:42) Potassium Cl 10meq/50ml Ivpb (Kcl 10 Meq (06/07/21 19:54) Protime With Inr (06/07/21 19:55) Partial Thromboplastin Time (06/07/21 19:55) Ns Iv 1000 Ml (Sodium Chloride 0.9%) (06/07/21 22:30) Medications Given in ED Current Medications Medications Dose Ordered Sig/Ernie Route Start Time Stop Time Status Last Admin Dose Admin Iohexol 100 ml ONCE ONCE IV 06/07/21 19:45 06/07/21 20:32 DC 06/07/21 20:28 50 ML Sodium Chloride 100 ml ONCE ONCE IV 06/07/21 19:45 06/07/21 20:32 DC 06/07/21 20:29 80 ML Vital Signs/I&O 06/07/21 06/07/21 18:50 23:11 Temp 36.8 Pulse 85 76 Resp 26 23 B/P (MAP) 117/72 (87) 113/60 Pulse Ox 100 98 O2 Delivery Room Air Room Air 06/08/21 00:00 Intake Total 1050 ml Balance 1050 ml Capillary Refill : Progress Note #1: Progress Note Obtain labs as well as urine and EKG. Order CT scan of his head, cervical spine, chest, abdomen, pelvis. Evaluate for internal hemorrhage, rib fractures, as well as pneumothorax or hemothorax. Abdomen/pelvis to evaluate for bowel perforation, pancreatitis or colitis or diverticulitis. Give IVF, protonix, Zofran. Progress Note #2: Progress Note Labs show stable CBC with chronic stable anemia. Chemistry with chronic recurrent elevated liver function tests. He does have critical value of low potassium at 2.8 and low sodium at 124. His BUN and creatinine are elevating along with dehydration. Advised patient and family that based on these results he would need to be admitted but I need to get the CT scan results to determine if he can be admitted locally or if he would need to go to a larger trauma center Progress Note #3: Progress Note CT scans came back showing no acute significant normality has had her cervical spine. There is no intracranial hemorrhage. His CT of the chest abdomen pelvis showed minimally displaced fractures of the left ribs on the sixth or 10th rib. He also had a T12 compression fracture approximately 50% of the superior endplate. There is no retropulsion or compression of the spinal cord. Discussed findings with Dr. Aquino the on-call physician for the [facility] service. She was comfortable taking the patient for alcohol withdrawal with delirium, hyponatremia, hypokalemia, dehydration with acute kidney injury. She requested a trauma consult to help manage his rib fractures and the T12 compression fracture. Plan discussed with Dr. Martinez the on-call trauma surgeon he stated he had no issue with helping to manage the rib fractures and follow the patient for that but he did not have any spine or orthopedic coverage this weekend and recommended at least checking with a trauma center that has spine coverage to see if there was treatment that would be done for his T12 compression fracture. If so he would need to go to the larger facility. If there is no immediate intervention or treatments other than pain control then he can likely be admitted locally. Updated and discussed with family and patient and they requested to check with [facility] initially. 2150 d/w [facility] transfer center about pt and case. They put me in touch with Dr. Balderas, ED provider at [facility], and she accepted pt for transfer and evaluation for his trauma injuries and compression fracture as well as medical issues of alcohol withdrawal with delirium, frequent falls, hyponatremia, hypokalemia, dehydration. She could not say for sure what the trauma service or spine specialists might do but without seeing the patient it would be difficult for them to provide a consult on the patient, thus the indication for transfer. ECG Initial ECG Impression Date: Jun 07, 2021 Initial ECG Impression Time: 19:00 Initial ECG Rate: 84 Initial ECG Rhythm: Normal Sinus Initial ECG Comparisson: Unchanged Comment Normal sinus rhythm with a heart rate of 84 bpm. MA interval 159 ms. QT interval 485 ms with a QTc interval of [address] elevation. Nonspecific intraventricular conduction delay. Appears similar to prior tracings. Diagnostic Imaging Diagonstic Imaging: CT Plain Films/CT/US/NM/MRI: c-spine, head Comments [facility], [place] NAME: JULITO FLOREZ [facility] REC#: [id number] PT STATUS: REG ER : 1960 PHYSICIAN: BLAKE MCCOY MD ADMIT DATE: 06/07/21/ER FS Signed Date of Exam:06/07/21 CT HEAD/CERVICAL SPINE WO PROCEDURE: CT head and CT cervical spine without contrast. TECHNIQUE: Multiple contiguous axial images were obtained through the brain and cervical spine without the use of intravenous contrast. Sagittal and coronal reformations through the cervical spine were then performed. Auto Exposure Controls were utilized during the CT exam to meet ALARA standards for radiation dose reduction. INDICATION: Fall. Left facial abrasion. Head and neck pain. COMPARISON: 03/09/2021. FINDINGS: CT HEAD: No large acute territorial ischemia, mass or hemorrhage. No midline shift or mass effect. The ventricles, cortical sulci and basilar cisterns are patent and unremarkable. The calvarium is intact. Scalp contusion is seen overlying the right forehead. The visualized paranasal sinuses are clear. CT CERVICAL SPINE: No acute fracture or dislocation is seen in the cervical spine. No focal osseous lesion. Vertebral body heights are well maintained. The craniocervical junction is well maintained. Mild degenerative changes are seen in the cervical spine with disc osteophyte complexes and uncovertebral arthropathy. Soft tissues of the neck are unremarkable. The included lung apices are clear. IMPRESSION: 1. No hemorrhage or focal intra-axial mass. No CT evidence of large acute territorial ischemia. 2. No acute fracture or dislocation in the cervical spine. 3. Scalp contusion overlying the right frontal region. No associated calvarial fracture. Dictated by: Dictated on workstation # [id number] Dict: 06/07/212029 Trans: 06/07/212035 PJE [id number] Interpreted by: ISABELA CAST DO Electronically signed by: ISABELA CAST DO 06/07/212035 Reviewed: Reviewed by Me Diagonstic Imaging: CT Plain Films/CT/US/NM/MRI: chest, abdomen, pelvis Comments [facility] [place] NAME: JULITO FLOREZ [facility] REC#: [id number] PT STATUS: REG ER : 1960 PHYSICIAN: BLAKE MCCOY MD ADMIT DATE: 06/07/21/ER FS Signed Date of Exam:06/07/21 CT CHEST/ABDOMEN/PELVIS W EXAMINATION: CT chest, abdomen and pelvis with intravenous contrast. TECHNIQUE: Multiple contiguous axial images were obtained through the chest, abdomen and pelvis after the uneventful administration of intravenous contrast. All CT scans use one or more of the following dose optimizing techniques: automated exposure control, MA and/or KvP adjustment based on patient size and exam type or iterative reconstruction. HISTORY: Fall. Torso bruising. Left-sided rib pain. COMPARISON: 03/19/2021. FINDINGS: CT CHEST: The heart size is within normal limits. No pericardial effusion is present. There is calcified aortic atherosclerotic plaque without aneurysm. There is no mediastinal, hilar or axillary lymphadenopathy. The lungs demonstrate no pulmonary nodule or mass. There is no focal area of consolidation. Bibasilar atelectasis is present. No central endobronchial obstructing lesion is identified. No pleural effusion or pneumothorax. The left 6th through 10th ribs demonstrate acute fractures. Multiple chronic rib fractures are seen, bilaterally. Acute compression fracture seen involving the superior endplate of T12 resulting in approximately 50% height loss. CT ABDOMEN AND PELVIS: The liver, spleen, pancreas, adrenal glands and kidneys have a normal appearance. The gallbladder is moderately distended. No cholelithiasis is seen. There is no pathologically enlarged mesenteric or retroperitoneal adenopathy. Small hiatal hernia is present. The bowel loops are nondilated. The appendix is visualized in the right lower quadrant and has a normal appearance. Scattered diverticula are seen in the descending and sigmoid colon without evidence of acute diverticulitis. There is no free fluid or free air. The osseous structures demonstrate no acute abnormality. Ureters and bladder have a normal appearance. There is no free air, loculated collection or adenopathy in the pelvis. IMPRESSION: 1. Acute minimally displaced fractures are seen involving the left 6th through 10th ribs. No associated pleural effusion or pneumothorax. 2. Acute compression fracture involving the superior endplate of T12 with 50% height loss. No evidence of retropulsion. 3. Small hiatal hernia. 4. No acute injury is seen in the abdomen or pelvis. No free fluid or free air. 5. Scattered diverticula in the descending and sigmoid colon without evidence of acute diverticulitis. Dictated by: Dictated on workstation # [id number] Dict: 06/07/212034 Trans: 06/07/212047 [facility] [id number] Interpreted by: ISABELA CAST DO Electronically signed by: ISABELA CAST DO 06/07/212047 Reviewed: Reviewed by Me Departure Impression Primary Impression: Hyponatremia Additional Impressions: Confusion Nausea Recurrent falls Alcoholism Hypokalemia Dehydration Acute kidney injury Alcohol withdrawal delirium Multiple fractures of ribs, left side, initial encounter for closed fracture Traumatic compression fracture of T12 thoracic vertebra Qualified Codes: S22.080A - Wedge compression fracture of t11-T12 vertebra, initial encounter for closed fracture Disposition: XFER SHT-TRM HOSP Condition: Stable Transfer Transfer Reason: Exceeds level of care (Trauma/Spine services) Time Spoke to Accepting Phy: 21:56 Transfer Progress Notes Through the [facility] access center I discussed the case with Dr. Balderas from the emergency department at [facility]. She accepted the patient in transfer for trauma evaluation Transfer Facility: [facility] Method of Transfer: EMS Departure-Patient Inst. [place] [facility] [place] [facility] [place] Primary Care Physician AARON REEVES APRN (Family) Primary Care Physician BLAKE MCCOY MD Jun 07, 2021 18:56
[2021-06-07 19:16] LABS: BASOPHILS % (AUTO) 0 % (0-10); EOSINOPHILS % (AUTO) 0 % (0-10); HEMATOCRIT 25 % (40-54); HEMOGLOBIN 8.2 g/dL (13.3-17.7); LYMPHOCYTES # (AUTO) 1.6 X 10^3 (1.0-4.0); LYMPHOCYTES % (AUTO) 22 % (12-44); MEAN CORPUSCULAR HEMOGLOBIN 28 pg (25-34); MEAN CORPUSCULAR HGB CONC 33 g/dL (32-36); MEAN CORPUSCULAR VOLUME 85 fL (80-99); MEAN PLATELET VOLUME 8.8 fL (9.0-12.2); MONOCYTES # (AUTO) 1.3 X 10^3 (0.0-1.0); MONOCYTES % (AUTO) 17 % (0-12); NEUTROPHILS # (AUTO) 4.5 X 10^3 (1.8-7.8); NEUTROPHILS % (AUTO) 59 % (42-75); PLATELET COUNT 331 10^3/uL (130-400); WHITE BLOOD COUNT 7.5 10^3/uL (4.3-11.0)
[2021-06-07] MEDS ORDERED: PANTOPRAZOLE 40 MG (PROTONIX) VIAL IV STA (19:29)
[2021-06-07] MEDS ORDERED: NS IV 1000 ML 1,000 ML IV STA (19:29)
[2021-06-07 19:41] LABS: ACETAMINOPHEN < 10 UG/ML (10-30); ALANINE AMINOTRANSFERASE 119 U/L (0-55); ALBUMIN 3.4 GM/DL (3.2-4.5); ALKALINE PHOSPHATASE 120 U/L (40-136); BILIRUBIN,TOTAL 1.9 MG/DL (0.1-1.0); BUN/CREATININE RATIO 23; CALCIUM 8.2 MG/DL (8.5-10.1); CARBON DIOXIDE 21 MMOL/L (21-32); CHLORIDE 81 MMOL/L (98-107); CREATININE SERUM 1.57 MG/DL (0.60-1.30); GFR ESTIMATED 45; GLUCOSE 236 MG/DL (70-105); POTASSIUM 2.8 MMOL/L (3.6-5.0); SALICYLATE < 0.3 MG/DL (5.0-20.0); TOTAL PROTEIN 6.6 GM/DL (6.4-8.2)
[2021-06-07 19:42] LABS: SODIUM 124 MMOL/L (135-145)
[2021-06-07] MEDS ORDERED: NS 100 ML (IVPB) BAG IV ONE (19:45)
[2021-06-07] MEDS ORDERED: HOLD METFORMIN - RECEIVED CONTRAST 20 ML VIAL IV SCH (19:45)
[2021-06-07] MEDS ORDERED: IOHEXOL 350 MG/ML 100 ML (OMNIPAQUE 350) VIAL IV ONE (19:45)
[2021-06-07] MEDS ORDERED: POTASSIUM CL 10MEQ/50ML IVPB 50 ML IV STA (19:54)
[2021-06-07 20:09] LABS: PROTHROMBIN TIME PATIENT 13.5 SEC (12.2-14.7)
--- NOTE | 2021-06-07 20:35 | Diagnostic Imaging Report ---
PROCEDURE: CT head and CT cervical spine without contrast. TECHNIQUE: Multiple contiguous axial images were obtained through the brain and cervical spine without the use of intravenous contrast. Sagittal and coronal reformations through the cervical spine were then performed. Auto Exposure Controls were utilized during the CT exam to meet ALARA standards for radiation dose reduction. INDICATION: Fall. Left facial abrasion. Head and neck pain. COMPARISON: 03/09/2021. FINDINGS: CT HEAD: No large acute territorial ischemia, mass or hemorrhage. No midline shift or mass effect. The ventricles, cortical sulci and basilar cisterns are patent and unremarkable. The calvarium is intact. Scalp contusion is seen overlying the right forehead. The visualized paranasal sinuses are clear. CT CERVICAL SPINE: No acute fracture or dislocation is seen in the cervical spine. No focal osseous lesion. Vertebral body heights are well maintained. The craniocervical junction is well maintained. Mild degenerative changes are seen in the cervical spine with disc osteophyte complexes and uncovertebral arthropathy. Soft tissues of the neck are unremarkable. The included lung apices are clear. IMPRESSION: 1. No hemorrhage or focal intra-axial mass. No CT evidence of large acute territorial ischemia. 2. No acute fracture or dislocation in the cervical spine. 3. Scalp contusion overlying the right frontal region. No associated calvarial fracture. Dictated by: Dictated on workstation # [id number]
[2021-06-07 20:39] LABS: BILIRUBIN,URINE 2+ (NEGATIVE); CLARITY,URINE CLEAR; COLOR,URINE YELLOW; GLUCOSE, URINE (UA) NEGATIVE (NEGATIVE); KETONES,URINE 1+ (NEGATIVE); LEUKOCYTE ESTERASE ,URINE NEGATIVE (NEGATIVE); NITRITE,URINE NEGATIVE (NEGATIVE); PROTEIN,URINE NEGATIVE (NEGATIVE)
[2021-06-07 20:40] LABS: BACTERIA,URINE TRACE /HPF; GRANULAR CASTS,URINE 0-2 /LPF
--- NOTE | 2021-06-07 20:47 | Diagnostic Imaging Report ---
EXAMINATION: CT chest, abdomen and pelvis with intravenous contrast. TECHNIQUE: Multiple contiguous axial images were obtained through the chest, abdomen and pelvis after the uneventful administration of intravenous contrast. All CT scans use one or more of the following dose optimizing techniques: automated exposure control, MA and/or KvP adjustment based on patient size and exam type or iterative reconstruction. HISTORY: Fall. Torso bruising. Left-sided rib pain. COMPARISON: 03/19/2021. FINDINGS: CT CHEST: The heart size is within normal limits. No pericardial effusion is present. There is calcified aortic atherosclerotic plaque without aneurysm. There is no mediastinal, hilar or axillary lymphadenopathy. The lungs demonstrate no pulmonary nodule or mass. There is no focal area of consolidation. Bibasilar atelectasis is present. No central endobronchial obstructing lesion is identified. No pleural effusion or pneumothorax. The left 6th through 10th ribs demonstrate acute fractures. Multiple chronic rib fractures are seen, bilaterally. Acute compression fracture seen involving the superior endplate of T12 resulting in approximately 50% height loss. CT ABDOMEN AND PELVIS: The liver, spleen, pancreas, adrenal glands and kidneys have a normal appearance. The gallbladder is moderately distended. No cholelithiasis is seen. There is no pathologically enlarged mesenteric or retroperitoneal adenopathy. Small hiatal hernia is present. The bowel loops are nondilated. The appendix is visualized in the right lower quadrant and has a normal appearance. Scattered diverticula are seen in the descending and sigmoid colon without evidence of acute diverticulitis. There is no free fluid or free air. The osseous structures demonstrate no acute abnormality. Ureters and bladder have a normal appearance. There is no free air, loculated collection or adenopathy in the pelvis. IMPRESSION: 1. Acute minimally displaced fractures are seen involving the left 6th through 10th ribs. No associated pleural effusion or pneumothorax. 2. Acute compression fracture involving the superior endplate of T12 with 50% height loss. No evidence of retropulsion. 3. Small hiatal hernia. 4. No acute injury is seen in the abdomen or pelvis. No free fluid or free air. 5. Scattered diverticula in the descending and sigmoid colon without evidence of acute diverticulitis. Dictated by: Dictated on workstation # [id number]
[2021-06-07 20:49] LABS: AMPHETAMINE SCREEN, URINE POSITIVE (NEGATIVE); BARBITURATE SCREEN URINE NEGATIVE (NEGATIVE); BENZODIAZEPINES SCREEN URINE POSITIVE (NEGATIVE); CANNABINOID SCREEN, URINE NEGATIVE (NEGATIVE); COCAINE SCREEN URINE NEGATIVE (NEGATIVE); METHADONE STAT NEGATIVE (NEGATIVE); METHAMPHETAMINE SCREEN URINE S NEGATIVE (NEGATIVE); OPIATE SCREEN URINE NEGATIVE (NEGATIVE); OXYCODONE STAT NEGATIVE (NEGATIVE); PROPOXYPHENE STAT NEGATIVE (NEGATIVE); TRICYCLIC ANTIDEPRESSANTS SCRE NEGATIVE (NEGATIVE)
[2021-06-07] MEDS ORDERED: NS IV 1000 ML 1,000 ML IV SCH (22:30)
[2021-06-07 23:11] VITALS: BP 113/60
== END 2021-06-07 23:17 | disposition short-term general hospital (02) ==
LOC: EDUNIT# 18:49 → ER FS 18:51
DX: S22.080A Wedge compression fracture of T11-T12 vertebra, initial encounter for closed fracture (principal); S22.32XA Fracture of one rib, left side, initial encounter for closed fracture; S00.83XA Contusion of other part of head, initial encounter; E87.1 Hypo-osmolality and hyponatremia; F10.231 Alcohol dependence with withdrawal delirium; R41.0 Disorientation, unspecified; R11.0 Nausea; R29.6 Repeated falls; E87.6 Hypokalemia; E86.0 Dehydration; N17.9 Acute kidney failure, unspecified; F41.9 Anxiety disorder, unspecified; F32.9 Major depressive disorder, single episode, unspecified; F17.210 Nicotine dependence, cigarettes, uncomplicated; Z20.822 Contact with and (suspected) exposure to COVID-19; Z79.899 Other long term (current) drug therapy; Z79.82 Long term (current) use of aspirin; W19.XXXA Unspecified fall, initial encounter
CPT/HCPCS: 36415; 70450; 71260; 72125; 74177; 80053; 80306; 81000; 82140; 83690; 85025; 85610; 85730; 87636; 93005; 93041; 99284; G0480 ×3; 80320; 80329

== ENCOUNTER 2022-03-20 08:54 | Inpatient (IN) | payer OTHER ==
[~2022-03-20] VITALS: Ht 185.4 cm; Wt 94.3 kg
[~2022-03-20 08:54] MED LIST changes: +POTA-160 PO; -POTA10TA6 PO
[2022-03-20] MEDS ORDERED: NS IV 1000 ML 1,000 ML IV SCH (09:00)
[2022-03-20] MEDS ORDERED: MIDAZOLAM 2 MG/2 ML (VERSED) VIAL IV ONE (09:00)
[2022-03-20] MEDS ORDERED: DIAZEPAM 5 MG (VALIUM) TABLET PO ONE (09:00)
--- NOTE | 2022-03-20 09:09 | ED Psychosocial ---
General Chief Complaint: Substance Abuse Stated Complaint: ALCOHOL INTOX Source: patient, EMS Exam Limitations: no limitations History of Present Illness Date Seen by Provider: Mar 20, 2022 Time Seen by Provider: 08:52 Initial Comments 61-year-old male with past medical history of alcohol use disorder that has not had a drink since last May coming in due to binge drinking and now wanting detox. He says its been about 5 days and drinking about 1/5 of alcohol roughly per day. Last drink was 2 hours ago per the patient. He says he is wanting to go through a full detox program. He says he relapsed because of multiple things going on including family dying and stress with the estate. Denies any chest pain, shortness of breath, abdominal pain, nausea, vomiting, diarrhea, weakness, numbness, fevers, chills, rash, or any other concerns. He says he had a fall roughly 3 days ago. Did not pass out, does not have a headache or any pain, does not take any blood thinners Allergies and Home Medications Allergies Coded Allergies: No Known Drug Allergies (Unverified , 10/16/20) Patient Home Medication List Home Medication List Reviewed: Yes Aspirin (Aspirin EC) 81 Mg Tablet., 81 MG PO DAILY, (Reported) Entered as Reported by: JUANITA MCGARRY on 03/10/21 1044 Cetirizine HCl (Zyrtec) 10 Mg Tablet, 10 MG PO DAILY, (Reported) Entered as Reported by: JUANITA MCGARRY on 03/10/21 1045 Fluoxetine HCl (Fluoxetine HCl) 40 Mg Capsule, 40 MG PO DAILY, (Reported) Entered as Reported by: JUANITA MCGARRY on 03/10/21 1044 Folic Acid (Folic Acid) 1 Mg Tablet, 1 MG PO DAILY Prescribed by: ESTIVEN AQUINO on 03/26/21 1104 Multivit-Min/Folic/Vit K/Lycop (Men's 50 Plus Multivitamin Tab) 1 Each Tablet, 1 EACH PO DAILY, (Reported) Entered as Reported by: JUANITA MCGARRY on 03/10/21 1044 Pantoprazole Sodium (Pantoprazole Sodium) 40 Mg Tablet.dr, 40 MG PO DAILY Prescribed by: ESTIVEN AQUINO on 03/26/21 1104 Review of Systems Constitutional: No fever EENTM: No blurred vision Respiratory: No cough Cardiovascular: No chest pain Gastrointestinal: No abdominal pain Genitourinary: no symptoms reported Musculoskeletal: no symptoms reported Skin: no symptoms reported Psychiatric/Neurological: Anxiety, Depressed All Other Systems Reviewed Negative Unless Noted: Yes Past Padaztq-Ziqgtz-Fuiuhp Hx Patient Social History Tobacco Use?: No Substance use?: No Alcohol Use?: Yes Alcohol type: Hard Liquor Alcohol Frequency: Daily Pt feels they are or have been: No Immunizations Up To Date Tetanus Booster (TDap): Less than 5yrs First/Initial COVID19 Vaccinat: Unknown Seasonal Allergies Seasonal Allergies: No Past Medical History Surgery/Hospitalization HX: Liver Issues, Esophogeal Varacies; Hx Alcoholism Surgeries: Yes (INGUINAL HERNIA REPAIR;BILAT CLAVICLE FX/ORIF;C-SPINE FX/FUSION AGE 17) Abdominal, Orthopedic Respiratory: No Currently Using CPAP: No Currently Using BIPAP: No Cardiac: No Neurological: Yes (HEPATIC ENCEPHALOPATHY) Sexually Transmitted Disease: No HIV/AIDS: No Genitourinary: No Gastrointestinal: Yes (S/P INGUINAL HERNIA REPAIR;HEPATIC ENCEPHALOPATHY) Abdominal Hernia, Liver Disease/Jaundice Musculoskeletal: Yes (C-SPINE FRACTURE /ORIF AGE 17; BILAT CLAVICLE FX/ORIF) Fractures Endocrine: No HEENT: No Loss of Vision: Denies Hearing Impairment: Denies Cancer: No Psychosocial: Yes (SUICIDAL IDEATION, ALCOHOLISM) Anxiety, Depression Integumentary: No Blood Disorders: No Adverse Reaction/Blood Tranf: No Family Medical History Patient reports no known family medical history. Hypertension Physical Exam Vital Signs - First Documented 03/20/22 08:54 Temp 36.8 Pulse 113 Resp 20 B/P (MAP) 120/89 (99) Pulse Ox 95 O2 Delivery Room Air Capillary Refill : Height, Weight, BMI Height: 6'1.00" Weight: 188lbs. 0.0oz. 85.528266ad; 24.00 BMI Method:Estimated General Appearance: WD/WN, other (Anxious) HEENT: PERRL/EOMI, normal ENT inspection, pharynx normal, other (Bruising above the left eye) Neck: non-tender, full range of motion, supple, normal inspection Respiratory: chest non-tender, lungs clear, normal breath sounds, no respiratory distress, no accessory muscle use Cardiovascular: regular rate, rhythm, no edema, no murmur Gastrointestinal: normal bowel sounds, non tender, soft; No distended, No guarding, No rebound Extremities: normal range of motion, non-tender, normal inspection, no pedal edema, no calf tenderness, normal capillary refill Neurologic/Psychiatric: no motor/sensory deficits, alert, normal mood/affect, oriented x 3 Behavior/Eye Contact: cooperative Thoughts/Hallucinations: normal thought pattern, no apparent hallucination Skin: normal color, warm/dry Lymphatic: no adenopathy Procedures/Interventions Date of ETT Placement: Oct 17, 2020 Progress/Results/Core Measures Results/Orders Lab Results Laboratory Tests Test 03/20/22 09:05 03/20/22 09:37 Range/Units White Blood Count 11.5 H 4.3-11.0 10^3/uL Red Blood Count 3.48 L 4.30-5.52 10^6/uL Hemoglobin 9.0 L 13.3-17.7 g/dL Hematocrit 27 L 40-54 % Mean Corpuscular Volume 77 L 80-99 fL Mean Corpuscular Hemoglobin 26 25-34 pg Mean Corpuscular Hemoglobin Concent 34 32-36 g/dL Red Cell Distribution Width 17.9 H 10.0-14.5 % Platelet Count 247 130-400 10^3/uL Mean Platelet Volume 8.9 L 9.0-12.2 fL Immature Granulocyte % (Auto) 1 % Neutrophils (%) (Auto) 62 42-75 % Lymphocytes (%) (Auto) 21 12-44 % Monocytes (%) (Auto) 15 H 0-12 % Eosinophils (%) (Auto) 1 0-10 % Basophils (%) (Auto) 1 0-10 % Neutrophils # (Auto) 7.1 1.8-7.8 10^3/uL Lymphocytes # (Auto) 2.4 1.0-4.0 10^3/uL Monocytes # (Auto) 1.7 H 0.0-1.0 10^3/uL Eosinophils # (Auto) 0.1 0.0-0.3 10^3/uL Basophils # (Auto) 0.1 0.0-0.1 10^3/uL Immature Granulocyte # (Auto) 0.1 0.0-0.1 10^3/uL Prothrombin Time 13.4 12.2-14.7 SEC INR Comment 1.0 0.8-1.4 Sodium Level 131 L 135-145 MMOL/L Potassium Level 2.4 *L 3.6-5.0 MMOL/L Chloride Level 86 L 98-107 MMOL/L Carbon Dioxide Level 22 21-32 MMOL/L Anion Gap 23 H 5-14 MMOL/L Blood Urea Nitrogen 15 7-18 MG/DL Creatinine 0.80 0.60-1.30 MG/DL Estimat Glomerular Filtration Rate 102 BUN/Creatinine Ratio 19 Glucose Level 115 H 70-105 MG/DL Calcium Level 8.6 8.5-10.1 MG/DL Corrected Calcium 8.8 8.5-10.1 MG/DL Magnesium Level 1.5 L 1.6-2.4 MG/DL Total Bilirubin 0.4 0.1-1.0 MG/DL Aspartate Amino Transf (AST/SGOT) 59 H 5-34 U/L Alanine Aminotransferase (ALT/SGPT) 65 H 0-55 U/L Alkaline Phosphatase 98 40-136 U/L Total Protein 6.6 6.4-8.2 GM/DL Albumin 3.8 3.2-4.5 GM/DL Salicylates Level < 0.3 L 5.0-20.0 MG/DL Acetaminophen Level < 10 L 10-30 UG/ML Serum Alcohol 134 H <10 MG/DL Urine Opiates Screen NEGATIVE NEGATIVE Urine Oxycodone Screen NEGATIVE NEGATIVE Urine Methadone Screen NEGATIVE NEGATIVE Urine Propoxyphene Screen NEGATIVE NEGATIVE Urine Barbiturates Screen NEGATIVE NEGATIVE Ur Tricyclic Antidepressants Screen NEGATIVE NEGATIVE Urine Phencyclidine Screen NEGATIVE NEGATIVE Urine Amphetamines Screen NEGATIVE NEGATIVE Urine Methamphetamines Screen NEGATIVE NEGATIVE Urine Benzodiazepines Screen NEGATIVE NEGATIVE Urine Cocaine Screen NEGATIVE NEGATIVE Urine Cannabinoids Screen NEGATIVE NEGATIVE My Orders Orders - DEMETRIUS JUDD MD Alcohol (03/20/22 09:00) Cbc With Automated Diff (03/20/22 09:00) Comprehensive Metabolic Panel (03/20/22 09:00) Drug Screen Stat (Urine) (03/20/22 09:00) Magnesium (03/20/22 09:00) Protime With Inr (03/20/22 09:00) Ed Iv/Invasive Line Start (03/20/22 09:00) Ekg Tracing (03/20/22 09:00) Ns Iv 1000 Ml (Sodium Chloride 0.9%) (03/20/22 09:00) Acetaminophen (03/20/22 09:00) Salicylate (03/20/22 09:00) Diazepam Tablet (Valium Tablet) (03/20/22 09:00) Midazolam Injection (Versed Injection) (03/20/22 09:00) Potassium Chloride (Tablet) (K Dur Table (03/20/22 09:45) Potassium Cl 10meq/50ml Ivpb (Kcl 10 Meq (03/20/22 09:39) Magnesium 1 Gm/100 Ml Ivpb (Magnesium Olivia (03/20/22 09:39) Ondansetron Injection (Zofran Injectio (03/20/22 09:45) Midazolam Injection (Versed Injection) (03/20/22 09:45) Medications Given in ED Current Medications Medications Dose Ordered Sig/Ernie Route Start Time Stop Time Status Last Admin Dose Admin Diazepam 10 mg ONCE ONCE PO 03/20/22 09:00 03/20/22 09:03 DC 03/20/22 09:13 10 MG Midazolam HCl 0.5 mg ONCE ONCE IV 03/20/22 09:00 03/20/22 09:03 DC 03/20/22 09:13 0.5 MG Midazolam HCl 0.5 mg ONCE PRN IV 03/20/22 09:45 03/20/22 10:05 0.5 MG Ondansetron HCl 4 mg ONCE ONCE IVP 03/20/22 09:45 03/20/22 09:46 DC 03/20/22 10:05 4 MG Potassium Chloride 40 meq ONCE ONCE PO 03/20/22 09:45 03/20/22 09:46 DC 03/20/22 10:05 40 MEQ Vital Signs/I&O 03/20/22 03/20/22 08:54 11:03 Temp 36.8 36.8 Pulse 113 98 Resp 20 20 B/P (MAP) 120/89 (99) 120/82 Pulse Ox 95 96 O2 Delivery Room Air Room Air Progress Progress Note : Progress Note 61-year-old male with above history coming in due to wanting detox. ABCs were intact and vitals were stable on presentation although he is just mildly tachycardic. Physical exam with the small bruise above his left eye. He says he fell 3 days ago, does not have a headache, and does not want any imaging. As stated if he has been drinking and had a fall, this could obviously hide any type of fracture or bleed. He is adamant that he does not want to pay for this at this time and is able to verbalize the risks back to me. Lab significant for potassium of 2.4 and magnesium low at 1.6. He was given IV potassium as well as IV magnesium. He was also given oral potassium. Called and discussed the case with Dr. Haro with [facility] who will admit the patient to the ICU for further evaluation and management as an inpatient for CIWA and IV electrolyte replacement. Initial ECG Impression Date: Mar 20, 2022 Initial ECG Impression Time: 09:43 Initial ECG Rate: 95 Initial ECG Rhythm: Normal Sinus Comment Narrow QRS, normal axis, no significant ST changes or T wave abnormalities Departure Impression Primary Impression: Alcohol use disorder Additional Impressions: Hypokalemia Hypomagnesemia Disposition: 30 STILL A PATIENT Condition: Stable Admissions Decision to Admit Reason: Admit from ER (General) Decision to Admit/Date: Mar 20, 2022 Time/Decision to Admit Time: 10:05 Transfer Method of Transfer: EMS Departure-Patient Inst. Referrals: AARON REEVES APRN (PCP) Primary Care Physician [facility] (Family) Primary Care Physician Patient Instructions: ALCOHOL AND SUBSTANCE ABUSE DEMETRIUS JUDD MD Mar 20, 2022 09:09
[2022-03-20 09:15] LABS: BASOPHILS # (AUTO) 0.1 10^3/uL (0.0-0.1); BASOPHILS % (AUTO) 1 % (0-10); EOSINOPHILS # (AUTO) 0.1 10^3/uL (0.0-0.3); EOSINOPHILS % (AUTO) 1 % (0-10); HEMATOCRIT 27 % (40-54); LYMPHOCYTES # (AUTO) 2.4 10^3/uL (1.0-4.0); LYMPHOCYTES % (AUTO) 21 % (12-44); MEAN CORPUSCULAR HEMOGLOBIN 26 pg (25-34); MEAN CORPUSCULAR HGB CONC 34 g/dL (32-36); MEAN CORPUSCULAR VOLUME 77 fL (80-99); MEAN PLATELET VOLUME 8.9 fL (9.0-12.2); MONOCYTES # (AUTO) 1.7 10^3/uL (0.0-1.0); MONOCYTES % (AUTO) 15 % (0-12); NEUTROPHILS # (AUTO) 7.1 10^3/uL (1.8-7.8); NEUTROPHILS % (AUTO) 62 % (42-75); PLATELET COUNT 247 10^3/uL (130-400); WHITE BLOOD COUNT 11.5 10^3/uL (4.3-11.0)
[2022-03-20 09:28] LABS: PROTHROMBIN TIME PATIENT 13.4 SEC (12.2-14.7)
[2022-03-20 09:37] LABS: SODIUM 131 MMOL/L (135-145)
[2022-03-20 09:38] LABS: CARBON DIOXIDE 22 MMOL/L (21-32); CHLORIDE 86 MMOL/L (98-107); POTASSIUM 2.4 MMOL/L (3.6-5.0)
[2022-03-20 09:39] LABS: ALANINE AMINOTRANSFERASE 65 U/L (0-55); ALBUMIN 3.8 GM/DL (3.2-4.5); ALKALINE PHOSPHATASE 98 U/L (40-136); BILIRUBIN,TOTAL 0.4 MG/DL (0.1-1.0); BUN/CREATININE RATIO 19; CALCIUM 8.6 MG/DL (8.5-10.1); GFR ESTIMATED 102; GLUCOSE 115 MG/DL (70-105); MAGNESIUM 1.5 MG/DL (1.6-2.4); SALICYLATE < 0.3 MG/DL (5.0-20.0); TOTAL PROTEIN 6.6 GM/DL (6.4-8.2)
[2022-03-20] MEDS ORDERED: POTASSIUM CL 10MEQ/50ML IVPB 50 ML IV STA (09:39)
[2022-03-20] MEDS ORDERED: MAGNESIUM 1 GM/100 ML IVPB 100 ML IV STA (09:39)
[2022-03-20 09:40] LABS: ACETAMINOPHEN < 10 UG/ML (10-30)
[2022-03-20] MEDS ORDERED: MIDAZOLAM 2 MG/2 ML (VERSED) VIAL IV PRN (09:45)
[2022-03-20] MEDS ORDERED: ONDANSETRON 4 MG/2 ML (SDV) Z0FRAN IVP ONE (09:45)
[2022-03-20] MEDS ORDERED: KCL 20 MEQ TAB (K-DUR) PO ONE (09:45)
[2022-03-20 09:57] LABS: AMPHETAMINE SCREEN, URINE NEGATIVE (NEGATIVE); BARBITURATE SCREEN URINE NEGATIVE (NEGATIVE); BENZODIAZEPINES SCREEN URINE NEGATIVE (NEGATIVE); CANNABINOID SCREEN, URINE NEGATIVE (NEGATIVE); COCAINE SCREEN URINE NEGATIVE (NEGATIVE); METHADONE STAT NEGATIVE (NEGATIVE); OPIATE SCREEN URINE NEGATIVE (NEGATIVE); OXYCODONE STAT NEGATIVE (NEGATIVE); PROPOXYPHENE STAT NEGATIVE (NEGATIVE); TRICYCLIC ANTIDEPRESSANTS SCRE NEGATIVE (NEGATIVE)
--- NOTE | 2022-03-20 12:17 | History & Physical-Hospitalist ---
History of Present Illness HPI/Chief Complaint CC: Severe alcohol withdrawal HPI: This is a 61yoWM known alcoholic who presents to the [facility] ER with alcohol withdrawal. He has abstained from alcohol several times in the past and he wants to quit. He has severe tremors and Ativan and Precedex will be started. Source: patient Exam Limitations: clinical condition Date Seen 03/20/22 Time Seen by a Provider: 13:00 Attending Physician Jayla Thompson Aprn PCP Admitting Physician: Attending Physician: Referring Physician Date of Admission Home Medications & Allergies Home Medications Reviewed patient Home Medication Reconciliation performed by pharmacy medication reconciliations plant health care technician and/or nursing. Patients Allergies have been reviewed. Allergies Allergies Coded Allergies No Known Drug Allergies (Unverified10/16/20) Past Bfjgksm-Qlkgcd-Pcudak Hx Patient Social History Marrital Status: single Employed/Student: unemployed Tobacco Use?: No Smoking Status: Current Everyday Smoker Substance use?: No Alcohol Use?: Yes Alcohol type: Hard Liquor Alcohol Frequency: Daily Additional Alcohol Comments: Reports relapse 1 week ago. Previously sober for 1.5 years Pt feels they are or have been: No Immunizations Up To Date First/Initial COVID19 Vaccinat: Unknown Tetanus Booster (TDap): Unknown Seasonal Allergies Seasonal Allergies: No Current Status Advance Directives: No Primary Language: [place] Preferred Spoken Language: [place] Past Medical History Surgeries: Abdominal, Orthopedic Currently Using CPAP: No Currently Using BIPAP: No Sexually Transmitted Disease: No HIV/AIDS: No Abdominal Hernia, Liver Disease/Jaundice Fractures Loss of Vision: Denies Hearing Impairment: Denies Anxiety, Depression Blood Disorders: No Adverse Reaction/Blood Tranf: No PMHx: Alcoholism Cirrhosis SurgHx: Neck/back fracture surgery Family Medical History Patient reports no known family medical history. Hypertension Review of Systems ROS-Unable to Obtain: severe tremors Constitutional: see HPI Physical Exam Physical Exam Vital Signs Vital Signs - First Documented 03/20/22 03/20/22 08:54 12:00 Temp 36.8 Pulse 113 Resp 20 B/P (MAP) 120/89 (99) Pulse Ox 95 O2 Delivery Room Air O2 Flow Rate 2.00 Capillary Refill : Less Than 3 Seconds Height, Weight, BMI Height: 6'1.00" Weight: 188lbs. 0.0oz. 85.955698qi; 27.00 BMI Method:Estimated General Appearance: Anxious, Chronically ill, Severe Distress, Other (tremors) Respiratory: Lungs Clear, Normal Breath Sounds Cardiovascular: Tachycardia Neurologic/Psychiatric: Alert, Oriented x3, No Motor/Sensory Deficits, Normal Mood/Affect Results Results/Procedures Labs Laboratory Tests 03/20/22 09:05 Patient resulted labs reviewed. Assessment/Plan Admission Diagnosis Assessment: Alcohol withdrawal Alcoholism Alcoholic hepatitis Plan: ICU Seizure risk is high Admission Status: Inpatient Order (span 2 midnights) Reason for Inpatient Admission: etoh withdrawal Diagnosis/Problems Diagnosis/Problems (1) Alcohol dependence with intoxication, unspecified Status: Acute (2) Alcoholism Status: Acute (3) Alcohol withdrawal delirium Status: Acute ESTIVEN AQUINO DO Mar 20, 2022 12:17
[2022-03-20] MEDS ORDERED: D5 1/2 NS 1000 ML IV SOLUTION 1,000 ML IV PRN (12:30)
[2022-03-20] MEDS ORDERED: LORazepam INJ 2 MG/ML (ATIVAN) VIAL IM/IV PRN (12:30)
[2022-03-20] MEDS ORDERED: ANTACID SUSP 30 ML UDC (MYLANTA) PO PRN ×2 (12:30)
[2022-03-20] MEDS ORDERED: ONDANSETRON 4 MG/2 ML (SDV) Z0FRAN IV PRN (12:30)
[2022-03-20] MEDS ORDERED: ONDANSETRON 4 MG (ZOFRAN) ORAL DISSOLVE TAB SL PRN (12:30)
[2022-03-20] MEDS ORDERED: MELATONIN 3 MG TABLET PO PRN (12:30)
[2022-03-20] MEDS ORDERED: SENNA W/DOCUSATE (SENOKOT S) TABLET PO PRN (12:30)
[2022-03-20] MEDS ORDERED: ONDANSETRON 4 MG (ZOFRAN) ORAL DISSOLVE TAB PO PRN (12:30)
[2022-03-20] MEDS ORDERED: BISACODYL 10 MG SUPP (DULCOLAX) PR PRN (12:30)
[2022-03-20] MEDS ORDERED: polyethylene glycoL POWDER 17 GM (MIRALAX) PACK PO PRN (12:30)
[2022-03-20] MEDS ORDERED: 1/2 NS IV SOLUTION 1,000 ML IV PRN (12:30)
[2022-03-20] MEDS ORDERED: diphenhydrAMINE 25 MG TAB (BENADRYL) PO PRN (12:30)
[2022-03-20] MEDS ORDERED: LORazepam 0.5 MG (ATIVAN) TABLET PO NR (12:45)
[2022-03-20] MEDS ORDERED: LORazepam INJ 2 MG/ML (ATIVAN) VIAL ONE (12:45)
[2022-03-20] MEDS: LORazepam INJ 2 MG/ML (ATIVAN) VIAL IV PRN ×4 (12:47→17:21)
[2022-03-20] MEDS: MAGNESIUM 1 GM/100 ML IVPB 100 ML IV SCH ×2 (13:15→15:41)
[2022-03-20] MEDS: POTASSIUM CL 10MEQ/50ML IVPB 50 ML IV SCH ×4 (13:15→19:58)
[2022-03-20] MEDS: ENOXAPARIN 40 MG/0.4 ML (LOVENOX) SYR SC SCH (13:15)
[2022-03-20] MEDS: THIAMINE INJECTION 100 MG, FOLIC ACID INJECTION 1 MG, VITAMIN MULTI INJECTION 10 ML, MA... IV SCH ×5 (13:55)
[2022-03-20] MEDS: ONDANSETRON 4 MG/2 ML (SDV) Z0FRAN IV PRN (15:04)
[2022-03-20 16:08] VITALS: BP 143/113
[2022-03-20] MEDS: DexMEDEtomidine 250 ML DRIP 250 ML IV PRN (16:12)
[2022-03-20] MEDS ORDERED: RT-ALBUTEROL/IPRATROPIUM 3 ML (DUONEB) VIAL INH PRN (16:15)
--- NOTE | 2022-03-20 17:10 | Tele-ICU Consult ---
History of Present Illness History of Present Illness Date Seen by Provider: Mar 20, 2022 Time Seen by Provider: 17:08 Date of Admission (Tele-ICU Physician , consultation) Available chart/ vitals / labs / Images reviewed H&P is from ER notes Patient's information available about PMH, Shx, Fhx allergy reviewed in EMR. ROS as per chart and RN report Now in ICU, hemodynamically stable Video assessment done using teleICU camera, rest of exam as per RN Discussed with RN. Consultants: A/P ETON abuse / withdrawal -no hallucinations No seizures - monitor -Continue supportive care on CIWA protocol --cont benzo -cont vitamins --not on precedex severe hypokalemia and hypoMG - being replaced s/p self-reported fall , and by ER exam " small bruise above his left eye" - as per notes - pateitn refused images Anemia - chronic, no acute bleeding Lines : (Central Line Necessity Reviewed) [place]: OG: Nutrition: Analgesia: Anxiety/ delirium VTE Prophylaxis: scd, lovenox as per PCP if deemed safe after a fall without imaging Stress Ulcer Prophylaxis: na Plans in collaboration with bedside consultants and IM MDs. Discussed with RN to reach out if any questions or concerns A total of 20minutes of critical care time was devoted to this patient today, required to treat and/or prevent further deterioration of critical care condition ( as above ) . Allergies and Home Medications Allergies Coded Allergies: No Known Drug Allergies (Unverified , 10/16/20) Home Medications Aspirin 81 Mg Tablet., 81 MG PO DAILY, (Reported) Cetirizine HCl 10 Mg Tablet, 10 MG PO DAILY, (Reported) Fluoxetine HCl 40 Mg Capsule, 40 MG PO DAILY, (Reported) Folic Acid 1 Mg Tablet, 1 MG PO DAILY Prescribed by: ESTIVEN AQUINO on 03/26/21 1104 Multivit-Min/Folic/Vit K/Lycop 1 Each Tablet, 1 EACH PO DAILY, (Reported) Pantoprazole Sodium 40 Mg Tablet., 40 MG PO DAILY Prescribed by: ESTIVEN AQUINO on 03/26/21 1104 Past Medical/Social/Family Hx Patient Social History Tobacco Use?: No Use of E-Cig and/or Vaping dev: No Substance use?: No Alcohol Use?: Yes Alcohol type: Hard Liquor Additional alcohol type: [place] Alcohol Frequency: Daily X4 DAYS PER PATIENT Pt stated abuse/neglect: No Immunizations Up To Date First/Initial COVID19 Vaccinat: Unknown Second COVID19 Vaccination Rajan: Unknown Tetanus Booster (TDap): Unknown Current Status Advance Directives: No Primary Language: Slovenian Preferred Spoken Language: Slovenian Is interpretation needed?: No Past Medical History PMHx: Alcoholism Cirrhosis SurgHx: Neck/back fracture surgery Review of Systems Constitutional: see HPI Focused Exam Height, Weight, BMI Height: 6'1.00" Weight: 188lbs. 0.0oz. 85.545260ot; 28.10 BMI Method:Estimated Exam Exam Patient acknowledged, consented, and participated in this virtual visit which was conducted using real time audio/video Vital Signs Date Time Temp Pulse Resp B/P (MAP) Pulse Ox O2 Delivery O2 Flow Rate FiO2 03/20/22 17:00 109 114/83 Room Air 03/20/22 16:12 108 143/113 03/20/22 16:08 36.8 108 97 03/20/22 16:00 107 31 140/97 95 Room Air 03/20/22 15:00 108 22 143/113 97 Room Air 03/20/22 14:00 100 12 150/77 97 Room Air 03/20/22 13:00 98 18 138/71 93 Room Air 03/20/22 12:59 99 03/20/22 12:55 96 Room Air 03/20/22 12:30 98 22 140/64 95 Room Air 03/20/22 11:03 36.8 98 20 120/82 96 Room Air 03/20/22 08:54 36.8 113 20 120/89 (99) 95 Room Air Height & Weight Height: 6'1.00" Weight: 188lbs. 0.0oz. 85.507159qz; 28.10 BMI Method:Estimated General Appearance: No Apparent Distress Capillary Refill: Less Than 3 Seconds Gastrointestinal: normal bowel sounds, non tender, soft; No distended, No guarding, No rebound Results Lab Laboratory Tests 03/20/22 09:05 Assessment/Plan Assessment/Plan . MOI HULL MD Mar 20, 2022 17:10
[2022-03-20] MEDS ORDERED: POTASSIUM CL 10MEQ/50ML IVPB 50 ML IV ONE (18:49)
[2022-03-20] MEDS: MAGNESIUM OXIDE (MAG-OX)400 MG TAB PO SCH (21:00)
[2022-03-20] MEDS: DOCUSATE SODIUM 100 MG (COLACE) CAP PO SCH (21:30)
[2022-03-21] MEDS: diphenhydrAMINE 50 MG/ML INJ (BENADRYL) IVP PRN ×2 (02:37→16:50)
[2022-03-21] MEDS: morphine INJ 4 MG/ML 1 ML (VIAL/SYRINGE) IV PRN (02:37)
[2022-03-21] MEDS: LORazepam INJ 2 MG/ML (ATIVAN) VIAL IV PRN ×4 (05:52→14:12)
--- NOTE | 2022-03-21 06:06 | Progress Note - Hospitalist ---
Subjective HPI/CC On Admission Date Seen by Provider: Mar 21, 2022 Time Seen by Provider: 10:00 CC: Severe alcohol withdrawal HPI: This is a 61yoWM known alcoholic who presents to the [facility] ER with alcohol withdrawal. He has abstained from alcohol several times in the past and he wants to quit. He has severe tremors and Ativan and Precedex will be started. Subjective/Events-last exam Patient requiring Precedex Oxygen level and CO2 will be monitored closely Patient not oriented High risk for intubation Chest x-ray ordered due to congestion Review of Systems General: Fatigue Pulmonary: Cough Neurological: Confusion Objective Exam Vital Signs Vital Signs Date Time Temp Pulse Resp B/P (MAP) Pulse Ox O2 Delivery O2 Flow Rate FiO2 03/22/22 06:00 57 23 118/50 93 OxyMask 10.00 03/21/22 19:35 37.1 Capillary Refill : Less Than 3 Seconds General Appearance: No Apparent Distress, WD/WN, Chronically ill Respiratory: Decreased Breath Sounds Cardiovascular: Tachycardia Neurologic/Psychiatric: Alert, Disoriented Results/Procedures Lab Laboratory Tests 03/21/22 16:00 03/22/22 04:52 Patient resulted labs reviewed. Assessment/Plan Assessment and Plan Assess & Plan/Chief Complaint Assessment: Alcohol withdrawal Alcoholism Alcoholic hepatitis Hypokalemia Plan: ICU Seizure risk is high Precedex Check chest x-ray Diagnosis/Problems Diagnosis/Problems (1) Alcohol dependence with intoxication, unspecified Status: Acute (2) Alcoholism Status: Acute (3) Alcohol withdrawal delirium Status: Acute ESTIVEN AQUINO DO Mar 21, 2022 06:06
[2022-03-21 06:29] LABS: BASOPHILS # (AUTO) 0.1 10^3/uL (0.0-0.1); BASOPHILS % (AUTO) 1 % (0-10); EOSINOPHILS # (AUTO) 0.2 10^3/uL (0.0-0.3); EOSINOPHILS % (AUTO) 2 % (0-10); HEMATOCRIT 27 % (40-54); HEMOGLOBIN 8.4 g/dL (13.3-17.7); LYMPHOCYTES % (AUTO) 13 % (12-44); MEAN CORPUSCULAR HEMOGLOBIN 26 pg (25-34); MEAN CORPUSCULAR HGB CONC 31 g/dL (32-36); MEAN CORPUSCULAR VOLUME 83 fL (80-99); MEAN PLATELET VOLUME 9.6 fL (9.0-12.2); MONOCYTES # (AUTO) 0.7 10^3/uL (0.0-1.0); MONOCYTES % (AUTO) 9 % (0-12); NEUTROPHILS # (AUTO) 5.4 10^3/uL (1.8-7.8); NEUTROPHILS % (AUTO) 74 % (42-75); PLATELET COUNT 216 10^3/uL (130-400); WHITE BLOOD COUNT 7.4 10^3/uL (4.3-11.0)
[2022-03-21 06:46] LABS: ALBUMIN 3.1 GM/DL (3.2-4.5)
[2022-03-21 06:47] LABS: CALCIUM 7.7 MG/DL (8.5-10.1)
[2022-03-21 06:49] LABS: TOTAL PROTEIN 5.6 GM/DL (6.4-8.2)
[2022-03-21 06:51] LABS: BILIRUBIN,TOTAL 0.6 MG/DL (0.1-1.0)
[2022-03-21 06:52] LABS: CREATININE SERUM 0.94 MG/DL (0.60-1.30)
[2022-03-21 06:55] LABS: MAGNESIUM 2.2 MG/DL (1.6-2.4)
[2022-03-21] MEDS: KCL 20 MEQ TAB (K-DUR) PO SCH (07:42)
[2022-03-21] MEDS: MAGNESIUM 1 GM/100 ML IVPB 100 ML IV SCH (07:42)
[2022-03-21] MEDS: POTASSIUM CL 10MEQ/50ML IVPB 50 ML IV SCH (07:42)
[2022-03-21] MEDS ORDERED: KCL 20 MEQ TAB (K-DUR) PO ONE ×3 (08:00→12:00)
[2022-03-21] MEDS: MAGNESIUM OXIDE (MAG-OX)400 MG TAB PO SCH ×2 (08:21→20:37)
[2022-03-21] MEDS: FOLIC ACID 1 MG TAB PO SCH (08:21)
[2022-03-21] MEDS: DOCUSATE SODIUM 100 MG (COLACE) CAP PO SCH ×2 (08:21→20:37)
[2022-03-21] MEDS: THIAMINE INJECTION 100 MG, FOLIC ACID INJECTION 1 MG, VITAMIN MULTI INJECTION 10 ML, MA... IV SCH ×5 (10:30)
[2022-03-21] MEDS: DexMEDEtomidine 250 ML DRIP 250 ML IV PRN (10:31)
--- NOTE | 2022-03-21 11:19 | Tele-ICU Progress Note ---
Subjective Date Seen by a Provider: Mar 21, 2022 Time Seen by a Provider: 11:05 Subjective/Events-last exam Available chart/vitals/labs/images reviewed. Video assessment done using telemetry ICU camera, rest of exam as per RN. Discussion with the RN, exam as per RN. Coordination with bed side im physicians Hospital course Patient admitted with alcohol intoxication and going through alcohol withdrawal syndrome. He is on a Precedex. He is still is confused Sepsis Event Evaluation Height, Weight, BMI Height: 6'1.00" Weight: 188lbs. 0.0oz. 85.725608oc; 28.10 BMI Method:Estimated Exam Exam Patient acknowledged, consented, and participated in this virtual visit which was conducted using real time audio/video Vital Signs Date Time Temp Pulse Resp B/P (MAP) Pulse Ox O2 Delivery O2 Flow Rate FiO2 03/21/22 11:00 64 29 86/55 98 OxyMask 10.00 03/21/22 10:31 64 85/54 03/21/22 10:00 64 27 81/52 91 OxyMask 10.00 03/21/22 09:00 65 25 81/53 94 OxyMask 10.00 03/21/22 08:14 OxyMask 10.00 03/21/22 08:09 92 OxyMask 10.00 03/21/22 08:00 67 25 86/59 94 Room Air 03/21/22 07:00 67 03/21/22 07:00 68 14 99/59 98 Room Air 03/21/22 06:00 72 25 90/61 98 Room Air 03/21/22 05:00 86 23 102/60 94 Room Air 03/21/22 04:00 82 23 98/67 95 Room Air 03/21/22 04:00 96 OxyMask 3.00 03/21/22 03:00 68 25 103/63 96 Room Air 03/21/22 02:19 95 OxyMask 6.00 03/21/22 02:00 61 23 102/71 95 Room Air 03/21/22 01:00 60 03/21/22 01:00 56 25 85/64 96 Room Air 03/21/22 00:00 60 22 89/57 94 Room Air 03/21/22 00:00 96 OxyMask 3.00 03/20/22 23:00 64 22 90/60 95 Room Air 03/20/22 22:22 96 OxyMask 6.00 03/20/22 22:00 66 21 93/62 97 Room Air 03/20/22 21:00 70 21 96/67 98 Room Air 03/20/22 20:12 96 OxyMask 3.00 03/20/22 20:00 75 26 104/70 99 Room Air 03/20/22 19:00 76 03/20/22 19:00 75 22 106/69 100 Room Air 03/20/22 18:35 98 OxyMask 6.00 03/20/22 18:00 90 24 108/82 97 Room Air 03/20/22 17:00 109 114/83 Room Air 03/20/22 16:12 108 143/113 03/20/22 16:08 36.8 108 97 03/20/22 16:00 OxyMask 5.00 03/20/22 16:00 107 31 140/97 95 Room Air 03/20/22 15:00 108 22 143/113 97 Room Air 03/20/22 14:00 100 12 150/77 97 Room Air 03/20/22 13:00 98 18 138/71 93 Room Air 03/20/22 12:59 99 03/20/22 12:55 96 Room Air 03/20/22 12:30 98 22 140/64 95 Room Air 03/20/22 12:00 Nasal Cannula 2.00 I & O 03/21/22 07:00 Intake Total 1570 ml Output Total 2000 ml Balance -430 ml Height & Weight Height: 6'1.00" Weight: 188lbs. 0.0oz. 85.707621aq; 28.10 BMI Method:Estimated General Appearance: Anxious, Chronically ill, Severe Distress, Other (tremors) Respiratory: Lungs Clear, Normal Breath Sounds Cardiovascular: Tachycardia Capillary Refill: Less Than 3 Seconds Gastrointestinal: normal bowel sounds, non tender, soft; No distended, No guarding, No rebound Neurologic/Psychiatric: Alert, Oriented x3, No Motor/Sensory Deficits, Normal Mood/Affect Other comments pe per rn Results Lab Laboratory Tests 03/20/22 09:05 03/21/22 05:37 Assessment/Plan Assessment/Plan 1. Acute alcohol intoxication 2. History of alcohol abuse 3. Alcohol withdrawal syndrome. Recommendations 1. Continue Precedex and wean as tolerated 2. He will be given thiamine folic acid and multivitamins. 3. CIWA protocol 4. DVT and ulcer prophylaxis.. Critical Care: Critically Ill Patient Time spent with patient (mins): 15 MARA IRVING MD Mar 21, 2022 11:19
[2022-03-21] MEDS ORDERED: FAMOTIDINE 20 MG (PEPCID) TABLET PO PRN (12:00)
[2022-03-21] MEDS: ENOXAPARIN 40 MG/0.4 ML (LOVENOX) SYR SC SCH (12:06)
--- NOTE | 2022-03-21 12:08 | Diagnostic Imaging Report ---
CLINICAL INDICATION: Patient with hypoxia. EXAM: Portable chest x-ray, upright view. COMPARISON: Portable chest x-ray dated 03/20/2021. FINDINGS: There is cardiomegaly. The pulmonary vasculature is within normal limits. There is improved aeration of both lungs compared to the prior study. There are residual bilateral lung base infiltrates (left side more than the right) which have decreased in the interim. The previously seen pleural effusions have resolved. There is no pleural effusion or pneumothorax. Left rib fractures are again seen which may be chronic. Previously seen right-sided central line has been removed. IMPRESSION: 1: There are bilateral lung infiltrates (left side more than the right) which have significantly improved in the interim. Previously seen bilateral pleural effusions have resolved. 2: There is cardiomegaly. The pulmonary vasculature is within normal limits. Dictated by: Dictated on workstation # [id number]
[2022-03-21] MEDS: LORazepam 0.5 MG (ATIVAN) TABLET PO PRN (16:59)
[2022-03-21] MEDS: LORazepam 1 MG (ATIVAN) TAB PO PRN (18:34)
[2022-03-22] MEDS: diphenhydrAMINE 50 MG/ML INJ (BENADRYL) IVP PRN ×2 (01:43→16:07)
[2022-03-22] MEDS: ONDANSETRON 4 MG/2 ML (SDV) Z0FRAN IV PRN (01:43)
[2022-03-22] MEDS: LORazepam 1 MG (ATIVAN) TAB PO PRN ×4 (01:43→11:42)
[2022-03-22] MEDS: morphine INJ 4 MG/ML 1 ML (VIAL/SYRINGE) IV PRN (04:38)
[2022-03-22] MEDS: DexMEDEtomidine 250 ML DRIP 250 ML IV PRN ×2 (04:39→16:18)
[2022-03-22 05:07] LABS: BASOPHILS % (AUTO) 0 % (0-10); EOSINOPHILS # (AUTO) 0.3 10^3/uL (0.0-0.3); EOSINOPHILS % (AUTO) 4 % (0-10); HEMATOCRIT 26 % (40-54); HEMOGLOBIN 8.2 g/dL (13.3-17.7); LYMPHOCYTES # (AUTO) 2.1 10^3/uL (1.0-4.0); LYMPHOCYTES % (AUTO) 31 % (12-44); MEAN CORPUSCULAR HEMOGLOBIN 26 pg (25-34); MEAN CORPUSCULAR HGB CONC 31 g/dL (32-36); MEAN CORPUSCULAR VOLUME 84 fL (80-99); MEAN PLATELET VOLUME 9.3 fL (9.0-12.2); MONOCYTES # (AUTO) 0.8 10^3/uL (0.0-1.0); MONOCYTES % (AUTO) 11 % (0-12); NEUTROPHILS # (AUTO) 3.7 10^3/uL (1.8-7.8); NEUTROPHILS % (AUTO) 53 % (42-75); PLATELET COUNT 204 10^3/uL (130-400)
[2022-03-22 05:25] LABS: ALBUMIN 2.9 GM/DL (3.2-4.5); POTASSIUM 3.9 MMOL/L (3.6-5.0)
[2022-03-22 05:26] LABS: CALCIUM 8.3 MG/DL (8.5-10.1)
[2022-03-22 05:27] LABS: TOTAL PROTEIN 5.5 GM/DL (6.4-8.2)
[2022-03-22 05:29] LABS: BILIRUBIN,TOTAL 0.4 MG/DL (0.1-1.0)
[2022-03-22 05:31] LABS: CREATININE SERUM 0.86 MG/DL (0.60-1.30)
[2022-03-22 05:34] LABS: MAGNESIUM 2.3 MG/DL (1.6-2.4)
[2022-03-22] MEDS: POTASSIUM CL 10MEQ/50ML IVPB 50 ML IV SCH (06:52)
[2022-03-22] MEDS: MAGNESIUM 1 GM/100 ML IVPB 100 ML IV SCH (06:53)
[2022-03-22] MEDS: KCL 20 MEQ TAB (K-DUR) PO SCH (06:57)
--- NOTE | 2022-03-22 07:32 | Progress Note - Hospitalist ---
Subjective HPI/CC On Admission Date Seen by Provider: Mar 22, 2022 Time Seen by Provider: 10:30 CC: Severe alcohol withdrawal HPI: This is a 61yoWM known alcoholic who presents to the [facility] ER with alcohol withdrawal. He has abstained from alcohol several times in the past and he wants to quit. He has severe tremors and Ativan and Precedex will be started. Subjective/Events-last exam Patient still on Precedex Alcohol withdrawal is severe Supportive care will continue Lungs remain clear Oxygen maintained Check meds and labs Review of Systems General: Fatigue Neurological: Confusion Objective Exam Vital Signs Vital Signs Date Time Temp Pulse Resp B/P (MAP) Pulse Ox O2 Delivery O2 Flow Rate FiO2 03/22/22 19:55 100 OxyMask 5.00 03/22/22 19:46 60 03/22/22 19:41 36.4 03/22/22 18:00 134/61 03/22/22 09:00 19 Capillary Refill : Less Than 3 Seconds General Appearance: WD/WN, Anxious, Chronically ill, Mild Distress Respiratory: Lungs Clear, Normal Breath Sounds Cardiovascular: Tachycardia Neurologic/Psychiatric: Alert, Oriented x3, Depressed Affect, Disoriented Results/Procedures Lab Laboratory Tests 03/22/22 04:52 Patient resulted labs reviewed. Assessment/Plan Assessment and Plan Assess & Plan/Chief Complaint Assessment: Alcohol withdrawal Alcoholism Alcoholic hepatitis Hypokalemia Plan: ICU Seizure risk is high Precedex Check chest x-ray Critical Care Critically Ill Patient Diagnosis/Problems Diagnosis/Problems (1) Alcohol dependence with intoxication, unspecified Status: Acute (2) Alcoholism Status: Acute (3) Alcohol withdrawal delirium Status: Acute ESTIVEN AQUINO DO Mar 22, 2022 07:32
[2022-03-22] MEDS: FOLIC ACID 1 MG TAB PO SCH (07:37)
[2022-03-22] MEDS: DOCUSATE SODIUM 100 MG (COLACE) CAP PO SCH ×2 (07:37→20:01)
[2022-03-22] MEDS: MAGNESIUM OXIDE (MAG-OX)400 MG TAB PO SCH ×2 (07:37→20:01)
[2022-03-22] MEDS: THIAMINE INJECTION 100 MG, FOLIC ACID INJECTION 1 MG, VITAMIN MULTI INJECTION 10 ML, MA... IV SCH ×5 (09:21)
--- NOTE | 2022-03-22 09:50 | Tele-ICU Progress Note ---
Subjective Date Seen by a Provider: Mar 22, 2022 Time Seen by a Provider: 09:47 Subjective/Events-last exam Available chart/vitals/labs/images reviewed. Video assessment done using telemetry ICU camera, rest of exam as per RN. Discussion with the RN, exam as per RN. Hospital course Patient resting comfortably while receiving Precedex at 0.7 mcg and banana bag. He does not offer any complaints. Video visit made Review of Systems ROS PER RN Sepsis Event Evaluation Height, Weight, BMI Height: 6'1.00" Weight: 188lbs. 0.0oz. 85.625149up; 28.10 BMI Method:Estimated Exam Exam Patient acknowledged, consented, and participated in this virtual visit which was conducted using real time audio/video Vital Signs Date Time Temp Pulse Resp B/P (MAP) Pulse Ox O2 Delivery O2 Flow Rate FiO2 03/22/22 09:00 54 19 117/66 95 Nasal Cannula 4.00 03/22/22 08:27 97 Nasal Cannula 4.00 03/22/22 08:11 36.3 03/22/22 08:00 55 20 123/51 95 Nasal Cannula 4.00 03/22/22 07:35 Nasal Cannula 4.00 03/22/22 07:16 Nasal Cannula 4.00 03/22/22 07:00 57 18 126/51 95 OxyMask 10.00 03/22/22 07:00 56 03/22/22 06:00 57 23 118/50 93 OxyMask 10.00 03/22/22 05:00 56 24 122/55 96 OxyMask 10.00 03/22/22 04:39 58 90/57 03/22/22 04:08 99 OxyMask 10.00 03/22/22 04:00 56 28 107/43 OxyMask 10.00 03/22/22 03:00 57 24 110/44 95 OxyMask 10.00 03/22/22 02:21 Nasal Cannula 4.00 03/22/22 02:00 60 26 105/46 95 OxyMask 10.00 03/22/22 01:00 60 03/22/22 01:00 56 23 106/55 90 OxyMask 10.00 03/22/22 00:00 99 OxyMask 10.00 03/22/22 00:00 60 21 109/48 93 OxyMask 10.00 03/21/22 23:00 61 22 114/50 97 OxyMask 10.00 03/21/22 22:25 100 Nasal Cannula 4.00 03/21/22 22:00 58 23 109/51 94 OxyMask 10.00 03/21/22 21:00 60 23 109/48 95 OxyMask 10.00 03/21/22 20:00 59 24 111/48 94 OxyMask 10.00 03/21/22 20:00 99 OxyMask 10.00 03/21/22 19:35 37.1 03/21/22 19:00 70 03/21/22 19:00 64 33 83/56 98 OxyMask 10.00 03/21/22 18:56 93 Room Air 03/21/22 18:00 58 24 89/54 94 OxyMask 10.00 03/21/22 17:00 60 13 95/65 95 OxyMask 10.00 03/21/22 16:00 58 34 84/55 98 OxyMask 10.00 03/21/22 15:47 36.9 03/21/22 15:38 97 OxyMask 10.00 03/21/22 15:25 99 OxyMask 10.00 03/21/22 15:00 58 25 97/62 97 OxyMask 10.00 03/21/22 14:00 60 95/64 98 OxyMask 10.00 03/21/22 13:00 63 31 99/67 100 OxyMask 10.00 03/21/22 12:53 68 03/21/22 12:36 36.7 03/21/22 12:17 97 OxyMask 10.00 03/21/22 12:00 63 28 87/52 100 OxyMask 10.00 03/21/22 11:00 64 29 86/55 98 OxyMask 10.00 03/21/22 10:31 64 85/54 03/21/22 10:00 64 27 81/52 91 OxyMask 10.00 I & O 03/22/22 07:00 Intake Total 3245.2 ml Output Total 1100 ml Balance 2145.2 ml Height & Weight Height: 6'1.00" Weight: 188lbs. 0.0oz. 85.023831cp; 28.10 BMI Method:Estimated General Appearance: No Apparent Distress, WD/WN, Chronically ill Respiratory: Decreased Breath Sounds Cardiovascular: Tachycardia Capillary Refill: Less Than 3 Seconds Gastrointestinal: normal bowel sounds, non tender, soft; No distended, No guarding, No rebound Neurologic/Psychiatric: Alert, Disoriented Results Lab Laboratory Tests 03/21/22 05:37 03/21/22 16:00 03/22/22 04:52 Assessment/Plan Assessment/Plan 1. Acute alcohol intoxication 2. History of alcohol abuse 3. Alcohol withdrawal syndrome. Recommendations 1. Continue Precedex and wean as tolerated 2. He will be given thiamine folic acid and multivitamins. 3. CIWA protocol 4. DVT and ulcer prophylaxis.. Video visit made and discussed with agricultural lendernetwork planner: Critically Ill Patient Time spent with patient (mins): 15 MARA IRVING MD Mar 22, 2022 09:50
[2022-03-22] MEDS: ENOXAPARIN 40 MG/0.4 ML (LOVENOX) SYR SC SCH (11:42)
[2022-03-22] MEDS: LORazepam 0.5 MG (ATIVAN) TABLET PO PRN ×2 (11:56→16:08)
[2022-03-22] MEDS: GABAPENTIN 300 MG (NEURONTIN) CAP PO SCH ×2 (12:23→20:01)
[2022-03-22] MEDS: BACLOFEN 10 MG (LIORESAL) TAB PO SCH ×2 (12:24→20:01)
[2022-03-22] MEDS: DIAZEPAM INJ 10 MG/2 ML (VALIUM) SYR IVP PRN (13:08)
[2022-03-22] MEDS ORDERED: HALOPERIDOL 5 MG/ML (HALDOL) VIAL IV ONE (13:45)
[2022-03-23] MEDS: DexMEDEtomidine 250 ML DRIP 250 ML IV PRN ×2 (02:52→23:05)
[2022-03-23 03:50] VITALS: BP 130/59
[2022-03-23 05:36] LABS: BASOPHILS % (AUTO) 1 % (0-10); EOSINOPHILS # (AUTO) 0.2 10^3/uL (0.0-0.3); EOSINOPHILS % (AUTO) 4 % (0-10); HEMATOCRIT 30 % (40-54); LYMPHOCYTES # (AUTO) 1.9 10^3/uL (1.0-4.0); LYMPHOCYTES % (AUTO) 31 % (12-44); MEAN CORPUSCULAR HEMOGLOBIN 26 pg (25-34); MEAN CORPUSCULAR HGB CONC 30 g/dL (32-36); MEAN CORPUSCULAR VOLUME 85 fL (80-99); MEAN PLATELET VOLUME 9.1 fL (9.0-12.2); MONOCYTES # (AUTO) 0.8 10^3/uL (0.0-1.0); MONOCYTES % (AUTO) 13 % (0-12); NEUTROPHILS # (AUTO) 3.1 10^3/uL (1.8-7.8); NEUTROPHILS % (AUTO) 50 % (42-75); PLATELET COUNT 251 10^3/uL (130-400); WHITE BLOOD COUNT 6.1 10^3/uL (4.3-11.0)
[2022-03-23 05:58] LABS: POTASSIUM 4.8 MMOL/L (3.6-5.0)
[2022-03-23 05:59] LABS: CALCIUM 8.3 MG/DL (8.5-10.1)
[2022-03-23 06:00] LABS: TOTAL PROTEIN 5.9 GM/DL (6.4-8.2)
[2022-03-23 06:02] LABS: BILIRUBIN,TOTAL 0.4 MG/DL (0.1-1.0)
[2022-03-23 06:04] LABS: CREATININE SERUM 0.79 MG/DL (0.60-1.30)
[2022-03-23 06:06] LABS: MAGNESIUM 2.1 MG/DL (1.6-2.4)
[2022-03-23] MEDS: MAGNESIUM 1 GM/100 ML IVPB 100 ML IV SCH (06:11)
[2022-03-23] MEDS: KCL 20 MEQ TAB (K-DUR) PO SCH (06:11)
[2022-03-23] MEDS: POTASSIUM CL 10MEQ/50ML IVPB 50 ML IV SCH (06:11)
--- NOTE | 2022-03-23 06:13 | Progress Note - Hospitalist ---
Subjective HPI/CC On Admission Date Seen by Provider: Mar 23, 2022 Time Seen by Provider: 09:00 CC: Severe alcohol withdrawal HPI: This is a 61yoWM known alcoholic who presents to the [facility] ER with alcohol withdrawal. He has abstained from alcohol several times in the past and he wants to quit. He has severe tremors and Ativan and Precedex will be started. Subjective/Events-last exam Patient still in alcohol withdrawal Precedex maintained Blood pressure improved Eating and drinking okay Confusion still persist Review of Systems General: Fatigue, Malaise Objective Exam Vital Signs Vital Signs Date Time Temp Pulse Resp B/P (MAP) Pulse Ox O2 Delivery O2 Flow Rate FiO2 03/23/22 20:03 80 32 123/69 91 Nasal Cannula 4.00 03/23/22 20:00 36.4 Capillary Refill : Less Than 3 Seconds General Appearance: No Apparent Distress, WD/WN, Chronically ill Respiratory: Lungs Clear, Normal Breath Sounds Cardiovascular: Regular Rate, Rhythm Neurologic/Psychiatric: Alert, Disoriented Results/Procedures Lab Laboratory Tests 03/23/22 05:25 Patient resulted labs reviewed. Assessment/Plan Assessment and Plan Assess & Plan/Chief Complaint Assessment: Alcohol withdrawal Alcoholism Alcoholic hepatitis Hypokalemia Plan: ICU Seizure risk is high Precedex Monitor BP Critical Care Critically Ill Patient Diagnosis/Problems Diagnosis/Problems (1) Alcohol dependence with intoxication, unspecified Status: Acute (2) Alcoholism Status: Acute (3) Alcohol withdrawal delirium Status: Acute ESTIVEN AQUINO DO Mar 23, 2022 06:13
[2022-03-23] MEDS ORDERED: LORazepam 1 MG (ATIVAN) TAB PO PRN (08:30)
[2022-03-23] MEDS: FOLIC ACID 1 MG TAB PO SCH (09:13)
[2022-03-23] MEDS: GABAPENTIN 300 MG (NEURONTIN) CAP PO SCH ×3 (09:13→21:15)
[2022-03-23] MEDS: BACLOFEN 10 MG (LIORESAL) TAB PO SCH ×3 (09:13→21:15)
[2022-03-23] MEDS: DOCUSATE SODIUM 100 MG (COLACE) CAP PO SCH ×2 (09:13→21:15)
[2022-03-23] MEDS: MAGNESIUM OXIDE (MAG-OX)400 MG TAB PO SCH (09:13)
--- NOTE | 2022-03-23 09:54 | Tele-ICU Progress Note ---
Subjective Date Seen by a Provider: Mar 23, 2022 Time Seen by a Provider: 09:54 Subjective/Events-last exam (Tele-ICU Physician , Progress Note ) Available chart/ vitals / labs / Images reviewed Video assessment done using teleICU camera, rest of exam as per RN Discussed with RN , EXAM PER RN Events overnight : Afebrile FiO2 - 3l I/O = even Drips: Pressors: , hemodynamically stable Consultants: A/P ETON abuse / withdrawal -no hallucinations No seizures - monitor -Continue supportive care on CIWA protocol ( cont benzo prn , add PO valium , try to wean off precedex ) -cont vitamins --cont gabapentin s/p self-reported fall , and by ER exam " small bruise above his left eye" - as per notes - pateitn refused images Anemia - chronic, no acute bleeding - follow Hypoxia - 3 L o2 - statt IS Lines : (Central Line Necessity Reviewed) S[place]: OG: Nutrition: Analgesia: Anxiety/ delirium VTE Prophylaxis: scd Stress Ulcer Prophylaxis: h2bl Plans in collaboration with bedside consultants and IM MDs. Discussed with RN to reach out if any questions or concerns A total of 20minutes of critical care time was devoted to this patient today, required to treat and/or prevent further deterioration of critical care condition ( as above ) . Sepsis Event Evaluation Height, Weight, BMI Height: 6'1.00" Weight: 188lbs. 0.0oz. 85.725328jx; 28.10 BMI Method:Estimated Exam Exam Patient acknowledged, consented, and participated in this virtual visit which was conducted using real time audio/video Vital Signs Date Time Temp Pulse Resp B/P (MAP) Pulse Ox O2 Delivery O2 Flow Rate FiO2 03/23/22 09:00 52 21 168/67 100 OxyMask 3.00 03/23/22 08:00 100 OxyMask 3.00 03/23/22 08:00 53 20 120/75 96 OxyMask 3.00 03/23/22 07:54 36.1 03/23/22 07:42 52 03/23/22 07:00 53 20 159/66 100 OxyMask 5.00 03/23/22 06:00 52 19 156/65 99 OxyMask 5.00 03/23/22 05:08 57 29 103/61 88 OxyMask 5.00 03/23/22 04:00 100 OxyMask 5.00 03/23/22 04:00 55 144/60 98 OxyMask 5.00 03/23/22 03:50 61 100 03/23/22 03:00 61 130/59 100 OxyMask 5.00 03/23/22 02:52 60 114/64 03/23/22 02:34 100 4.00 03/23/22 02:00 59 154/63 99 OxyMask 5.00 03/23/22 01:00 60 03/23/22 01:00 60 146/61 98 OxyMask 5.00 03/23/22 00:00 61 148/66 97 OxyMask 5.00 03/23/22 00:00 100 OxyMask 5.00 03/23/22 00:00 36.5 03/22/22 23:00 60 134/63 98 OxyMask 5.00 03/22/22 22:48 98 OxyMask 4.00 03/22/22 22:00 58 116/68 96 OxyMask 5.00 03/22/22 21:00 59 120/61 97 OxyMask 5.00 03/22/22 20:00 58 131/63 98 OxyMask 5.00 03/22/22 19:55 100 OxyMask 5.00 03/22/22 19:46 60 03/22/22 19:41 36.4 03/22/22 19:00 58 03/22/22 19:00 58 128/57 96 OxyMask 5.00 03/22/22 18:42 98 OxyMask 4.00 03/22/22 18:00 60 134/61 98 OxyMask 5.00 03/22/22 17:00 60 126/60 98 OxyMask 5.00 03/22/22 16:27 100 OxyMask 5.00 03/22/22 16:18 68 108/65 03/22/22 16:00 68 108/65 100 OxyMask 5.00 03/22/22 15:47 36.5 03/22/22 15:00 58 131/62 100 OxyMask 5.00 03/22/22 15:00 100 OxyMask 4.00 03/22/22 14:11 OxyMask 5.00 03/22/22 14:00 62 109/49 Nasal Cannula 4.00 03/22/22 13:00 58 03/22/22 13:00 55 105/48 97 Nasal Cannula 4.00 03/22/22 12:00 36.3 03/22/22 12:00 59 135/47 98 Nasal Cannula 4.00 03/22/22 11:51 97 Nasal Cannula 4.00 03/22/22 11:00 54 129/67 93 Nasal Cannula 4.00 03/22/22 10:53 Nasal Cannula 4.00 03/22/22 10:00 54 130/53 Nasal Cannula 4.00 I & O 03/23/22 06:59 Intake Total 2805.2 ml Output Total 2550 ml Balance 255.2 ml Height & Weight Height: 6'1.00" Weight: 188lbs. 0.0oz. 85.895145ya; 28.10 BMI Method:Estimated General Appearance: WD/WN, Anxious, Chronically ill, Mild Distress Respiratory: Lungs Clear, Normal Breath Sounds Cardiovascular: Tachycardia Capillary Refill: Less Than 3 Seconds Gastrointestinal: normal bowel sounds, non tender, soft; No distended, No guarding, No rebound Neurologic/Psychiatric: Alert, Oriented x3, Depressed Affect, Disoriented Results Lab Laboratory Tests 03/21/22 16:00 03/22/22 04:52 03/23/22 05:25 Assessment/Plan Assessment/Plan 1 MOI HULL MD Mar 23, 2022 09:54
[2022-03-23] MEDS: DIAZEPAM INJ 10 MG/2 ML (VALIUM) SYR IVP PRN (11:10)
[2022-03-23] MEDS: DIAZEPAM 5 MG (VALIUM) TABLET PO SCH ×2 (14:38→21:15)
[2022-03-23] MEDS: ENOXAPARIN 40 MG/0.4 ML (LOVENOX) SYR SC SCH (14:38)
[2022-03-23] MEDS ORDERED: DIAZEPAM INJ 10 MG/2 ML (VALIUM) SYR IVP PRN (18:00)
[2022-03-23] MEDS ORDERED: DIAZEPAM INJ 10 MG/2 ML (VALIUM) SYR ONE (18:06)
[2022-03-23] MEDS: LORazepam 1 MG (ATIVAN) TAB PO PRN (19:31)
[2022-03-23] MEDS: morphine INJ 4 MG/ML 1 ML (VIAL/SYRINGE) IV PRN (23:54)
[2022-03-23] MEDS: diphenhydrAMINE 50 MG/ML INJ (BENADRYL) IVP PRN (23:54)
[2022-03-24] MEDS: morphine INJ 4 MG/ML 1 ML (VIAL/SYRINGE) IV PRN ×3 (01:00→23:08)
[2022-03-24 05:18] LABS: BASOPHILS # (AUTO) 0.1 10^3/uL (0.0-0.1); BASOPHILS % (AUTO) 1 % (0-10); EOSINOPHILS # (AUTO) 0.2 10^3/uL (0.0-0.3); EOSINOPHILS % (AUTO) 2 % (0-10); HEMATOCRIT 29 % (40-54); HEMOGLOBIN 9.1 g/dL (13.3-17.7); LYMPHOCYTES # (AUTO) 2.5 10^3/uL (1.0-4.0); LYMPHOCYTES % (AUTO) 26 % (12-44); MEAN CORPUSCULAR HEMOGLOBIN 26 pg (25-34); MEAN CORPUSCULAR HGB CONC 31 g/dL (32-36); MEAN CORPUSCULAR VOLUME 84 fL (80-99); MONOCYTES # (AUTO) 1.4 10^3/uL (0.0-1.0); MONOCYTES % (AUTO) 15 % (0-12); NEUTROPHILS # (AUTO) 5.5 10^3/uL (1.8-7.8); NEUTROPHILS % (AUTO) 57 % (42-75); PLATELET COUNT 309 10^3/uL (130-400); WHITE BLOOD COUNT 9.7 10^3/uL (4.3-11.0)
[2022-03-24 05:43] LABS: ALBUMIN 2.9 GM/DL (3.2-4.5); POTASSIUM 4.4 MMOL/L (3.6-5.0)
[2022-03-24 05:44] LABS: CALCIUM 8.2 MG/DL (8.5-10.1)
[2022-03-24 05:45] LABS: TOTAL PROTEIN 5.8 GM/DL (6.4-8.2)
[2022-03-24 05:47] LABS: BILIRUBIN,TOTAL 0.4 MG/DL (0.1-1.0)
[2022-03-24 05:49] LABS: CREATININE SERUM 0.81 MG/DL (0.60-1.30)
[2022-03-24 05:51] LABS: MAGNESIUM 1.8 MG/DL (1.6-2.4)
--- NOTE | 2022-03-24 06:02 | Progress Note - Hospitalist ---
Subjective HPI/CC On Admission Date Seen by Provider: Mar 24, 2022 Time Seen by Provider: 09:00 CC: Severe alcohol withdrawal HPI: This is a 61yoWM known alcoholic who presents to the [facility] ER with alcohol withdrawal. He has abstained from alcohol several times in the past and he wants to quit. He has severe tremors and Ativan and Precedex will be started. Subjective/Events-last exam Patient doing a lot better Moving to fourth floor PT and OT will be ordered Less anxious Alcohol withdraw appears to be dissipating Review of Systems General: Fatigue, Malaise Objective Exam Vital Signs Vital Signs Date Time Temp Pulse Resp B/P (MAP) Pulse Ox O2 Delivery O2 Flow Rate FiO2 03/24/22 20:00 38.3 18 18 155/80 (105) 95 Room Air 03/24/22 10:00 4.00 Capillary Refill : Less Than 3 Seconds General Appearance: No Apparent Distress, WD/WN, Chronically ill Respiratory: Lungs Clear, Normal Breath Sounds Cardiovascular: Regular Rate, Rhythm Neurologic/Psychiatric: Alert, Oriented x3, No Motor/Sensory Deficits, Normal Mood/Affect Results/Procedures Lab Laboratory Tests 03/24/22 04:09 Patient resulted labs reviewed. Assessment/Plan Assessment and Plan Assess & Plan/Chief Complaint Assessment: Alcohol withdrawal Alcoholism Alcoholic hepatitis Hypokalemia Plan: Move to 4th floor Seizure risk is less DC Monitor BP PT OT Critical Care Critically Ill Patient Diagnosis/Problems Diagnosis/Problems (1) Alcohol dependence with intoxication, unspecified Status: Acute (2) Alcoholism Status: Acute (3) Alcohol withdrawal delirium Status: Acute ESTIVEN AQUINO DO Mar 24, 2022 06:02
[2022-03-24] MEDS: POTASSIUM CL 10MEQ/50ML IVPB 50 ML IV SCH (06:46)
[2022-03-24] MEDS: KCL 20 MEQ TAB (K-DUR) PO SCH (06:47)
[2022-03-24] MEDS: MAGNESIUM 1 GM/100 ML IVPB 100 ML IV SCH (06:47)
[2022-03-24] MEDS: GABAPENTIN 300 MG (NEURONTIN) CAP PO SCH ×3 (08:49→20:21)
[2022-03-24] MEDS: DIAZEPAM 5 MG (VALIUM) TABLET PO SCH ×3 (08:49→20:21)
[2022-03-24] MEDS: BACLOFEN 10 MG (LIORESAL) TAB PO SCH ×3 (08:49→20:21)
[2022-03-24] MEDS: FOLIC ACID 1 MG TAB PO SCH (08:49)
[2022-03-24] MEDS: DOCUSATE SODIUM 100 MG (COLACE) CAP PO SCH ×2 (09:00→20:21)
--- NOTE | 2022-03-24 09:13 | Tele-ICU Progress Note ---
Subjective Date Seen by a Provider: Mar 24, 2022 Time Seen by a Provider: 09:12 Review of Systems ROS PER RN Sepsis Event Evaluation Height, Weight, BMI Height: 6'1.00" Weight: 188lbs. 0.0oz. 85.266839gh; 28.10 BMI Method:Estimated Exam Exam Patient acknowledged, consented, and participated in this virtual visit which was conducted using real time audio/video Vital Signs Date Time Temp Pulse Resp B/P (MAP) Pulse Ox O2 Delivery O2 Flow Rate FiO2 03/24/22 09:00 93 18 97/55 80 Nasal Cannula 4.00 03/24/22 08:00 77 21 102/57 92 Nasal Cannula 4.00 03/24/22 08:00 37.1 03/24/22 07:29 95 Room Air 03/24/22 07:00 70 19 102/58 96 Nasal Cannula 4.00 03/24/22 06:39 84 03/24/22 06:00 73 22 96/61 93 Nasal Cannula 4.00 03/24/22 05:00 79 19 118/81 96 Nasal Cannula 4.00 03/24/22 04:00 100 OxyMask 3.00 03/24/22 04:00 37.2 03/24/22 04:00 70 22 105/58 95 Nasal Cannula 4.00 03/24/22 03:00 67 18 102/59 91 Nasal Cannula 4.00 03/24/22 02:00 67 23 98/55 92 Nasal Cannula 4.00 03/24/22 01:00 66 03/24/22 01:00 66 28 99/57 89 Nasal Cannula 4.00 03/24/22 00:00 100 OxyMask 3.00 03/24/22 00:00 68 29 110/57 97 Nasal Cannula 4.00 03/23/22 23:45 37.4 03/23/22 23:05 75 03/23/22 23:00 65 30 90/55 95 Nasal Cannula 4.00 03/23/22 22:00 71 23 98/59 98 Nasal Cannula 4.00 03/23/22 21:00 80 28 96/59 95 Nasal Cannula 4.00 03/23/22 20:03 80 32 123/69 91 Nasal Cannula 4.00 03/23/22 20:00 81 35 123/69 88 OxyMask 3.00 03/23/22 20:00 36.4 03/23/22 19:46 100 OxyMask 3.00 03/23/22 19:00 96 03/23/22 19:00 96 26 114/75 95 OxyMask 3.00 03/23/22 18:00 105 24 100/73 91 OxyMask 3.00 03/23/22 17:00 94 14 111/58 92 OxyMask 3.00 03/23/22 16:00 76 19 138/81 93 OxyMask 3.00 03/23/22 16:00 100 Nasal Cannula 3.00 03/23/22 15:39 36.8 03/23/22 15:00 70 19 132/79 100 OxyMask 3.00 03/23/22 14:00 61 19 139/60 94 OxyMask 3.00 03/23/22 13:00 58 03/23/22 13:00 59 23 126/48 91 OxyMask 3.00 03/23/22 12:00 58 19 126/48 94 OxyMask 3.00 03/23/22 12:00 36.0 03/23/22 12:00 100 OxyMask 3.00 03/23/22 11:00 51 20 126/58 92 OxyMask 3.00 03/23/22 10:00 53 19 167/65 99 OxyMask 3.00 I & O 03/24/22 07:00 Intake Total 1950 ml Output Total 2250 ml Balance -300 ml Height & Weight Height: 6'1.00" Weight: 188lbs. 0.0oz. 85.151983xd; 28.10 BMI Method:Estimated General Appearance: No Apparent Distress, WD/WN, Chronically ill Respiratory: Lungs Clear, Normal Breath Sounds Cardiovascular: Regular Rate, Rhythm Capillary Refill: Less Than 3 Seconds Gastrointestinal: normal bowel sounds, non tender, soft; No distended, No guarding, No rebound Neurologic/Psychiatric: Alert, Disoriented Results Lab Laboratory Tests 03/23/22 05:25 03/24/22 04:09 Assessment/Plan Assessment/Plan 1. Acute alcohol intoxication 2. History of alcohol abuse 3. Alcohol withdrawal syndrome. Recommendations 1. Continue Precedex and wean as tolerated 2. He will be given thiamine folic acid and multivitamins. 3. CIWA protocol 4. DVT and ulcer prophylaxis.. Video visit made and discussed with agricultural systems specialist MARA IRVING MD Mar 24, 2022 09:13
[2022-03-24] MEDS ORDERED: IBUP-2185 PO (09:53)
[2022-03-24] MEDS ORDERED: ACET-2267 PO ×2 (09:53)
[2022-03-24] MEDS ORDERED: CYAN-23 PO (09:53)
[2022-03-24] MEDS ORDERED: BIOT25007 PO (09:53)
[2022-03-24] MEDS ORDERED: IBUP-2473 PO (09:53)
--- NOTE | 2022-03-24 11:30 | Occupational Therapy Eval ---
OT Evaluation-General/PLF Medical Diagnosis Admission Date Mar 20, 2022 at 12:05 Medical Diagnosis: alcohol withdrawal Onset Date: Mar 20, 2022 Therapy Diagnosis Therapy Diagnosis: n/a Height/Weight Height (Feet): 6 Height (Inches): 1.00 Weight (Pounds): 188 Weight (Ounces): 0.0 Precautions Precautions/Isolations: Standard Precautions Referral Referral Reason: Evaluation/Treatment Medical History Pertinent Medical History: Alcoholism, Smoking Current History Pt presents to hospital for alcohol withdrawal. Per patient, he lives alone in a single story home. 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 He does not use any AD at baseline. Reviewed History: Yes Social History Home: Single Level Current Living Status: Alone Entry Into Home: Stairs With Railing ADL-Prior Level of Function SCALE: Activities may be completed with or without assistive devices. 9-Qrvzltiiru-plsmjcp completes the activity by him/herself with no assistance from a helper. 5-Set-up or Clean-up Assistance-helper sets up or cleans up; patient completes activity. [place] assists only prior to or following the activity. 4-Supervision or Touching Assistance-helper provides verbal cues and/or touching/steadying and/or contact guard assistance as patient completes activity. Assistance may be provided throughout the activity or intermittently. 3-Partial/Moderate Assistance-helper does LESS THAN HALF the effort. [place] lifts, holds or supports trunk or limbs, but provides less than half the effort. 2-Substantial/Maximal Assistance-helper does MORE THAN HALF the effort. [place] lifts or holds trunk or limbs and provides more than half the effort. 3-Ojzgqqkud-ytmsha does ALL the effort. Patient does none of the effort to complete the activity. Or, the assistance of 2 or more helpers is required for the patient to complete the activity. If activity was not attempted, code reason: 7-Patient Refused. 9-Not Applicable-not attempted and the patient did not perform the activity before the current illness, exacerbation or injury. 10-Not Attempted due to Environmental Limitations-(lack of equipment, weather restraints, etc.). 88-Not Attempted due to Medical Conditions or Safety Concerns. Self Care: Independent Functional Cognition: Independent DME/Equipment: Bath Chair, Tub/Shower Drive Self: Yes OT Current Status Subjective Pt denies pain, agreeable to eval. Appearance Pt left sitting in recliner, chair alarm set, all needs within reach, RN in room. Mental Status/Objective Patient Orientation: Person, Place, Situation Attachments: IV, Telemetry Current Hand Dominance: Right Upper Extremity ROM WNL Upper Extremity Strength not formally tested, appear WNL ADL-Treatment Eating (QC): 6 Lower Body Dressing (QC): 6 On/Off Footwear (QC): 6 Toileting Hygiene (QC): 6 (per clinical judgment) Supine>sit: Indep. Pt ambulated within bond (>500 feet) with supervision, no AD. No LOB or safety concerns observed. Pt initially ambulated with wide stance, but improves with distance/time. Pt denies any self care concerns. No further OT services warranted at this time. Education OT Patient Education: Purpose of tx/functional activities, Rehab process Teaching Recipient: Patient Teaching Methods: Discussion Response to Teaching: Verbalize Understanding, Return Demonstration OT Intermediate Goals Intermediate Goals 1=Demonstrate adherence to instructed precautions during ADL tasks. 2=Patient will verbalize/demonstrate understanding of assistive devices/modifications for ADL. 3=Patient will improve strength/tolerance for activity to enable patient to perform ADL's. OT Education/Plan Problem List/Assessment Assessment: No Skilled OT Needs ID'd Discharge Recommendations Plan/Recommendations: Discontinue OT Therapy Discharge Recommendati: Home & Family Treatment Plan/Plan of Care Treatment,Training & Education: Yes Patient would benefit from OT for education, treatment and training to promote independence in ADL's, mobility, safety and/or upper extremity function for ADL's. Plan of Care: Functional Mobility Treatment Duration: Mar 24, 2022 Frequency: 1 time per week Estimated Hrs Per Day: .25 hour per day Agreement: Yes Time/GCodes Start Time: 10:45 Stop Time: 10:54 Total Time Billed (hr/min): 9 Billed Treatment Time 1 visit Carrie Rivas OT Mar 24, 2022 11:30
--- NOTE | 2022-03-24 11:32 | Physical Therapy Evaluation ---
PT Evaluation-General Medical Diagnosis Admission Date Mar 20, 2022 at 12:05 Medical Diagnosis: alcohol intoxication Onset Date: Mar 20, 2022 Therapy Diagnosis Therapy Diagnosis: debility/weakness Height/Weight Height (Feet): 6 Height (Inches): 1.00 Weight (Pounds): 188 Weight (Ounces): 0.0 Precautions Precautions/Isolations: Fall Prevention, Standard Precautions Referral Physician: Светлана Reason for Referral: Evaluation/Treatment Medical History Pertinent Medical History: Alcoholism, Smoking Current History EMS secondary to binge drinking Reviewed History: Yes Social History Home: Single Level Current Living Status: Alone Entry Into Home: Stairs With Railing PT Steps Into Home: 3 Prior Prior Level of Function SCALE: Activities may be completed with or without assistive devices. 5-Dvlteuzmhm-lmoiwre completes the activity by him/herself with no assistance from a helper. 5-Set-up or Clean-up Assistance-helper sets up or cleans up; patient completes activity. [place] assists only prior to or following the activity. 4-Supervision or Touching Assistance-helper provides verbal cues and/or touching/steadying and/or contact guard assistance as patient completes activity. Assistance may be provided throughout the activity or intermittently. 3-Partial/Moderate Assistance-helper does LESS THAN HALF the effort. [place] lifts, holds or supports trunk or limbs, but provides less than half the effort. 2-Substantial/Maximal Assistance-helper does MORE THAN HALF the effort. [place] lifts or holds trunk or limbs and provides more than half the effort. 5-Sfprszsfo-mjrekg does ALL the effort. Patient does none of the effort to complete the activity. Or, the assistance of 2 or more helpers is required for the patient to complete the activity. If activity was not attempted, code reason: 7-Patient Refused. 9-Not Applicable-not attempted and the patient did not perform the activity before the current illness, exacerbation or injury. 10-Not Attempted due to Environmental Limitations-(lack of equipment, weather restraints, etc.). 88-Not Attempted due to Medical Conditions or Safety Concerns. Bed Mobility: 6 Transfers (B,C,W/C): 6 Gait: 6 Stairs: 6 Indoor Mobility (Ambulation): Independent Stairs: Independent Prior Devices Use: None PT Evaluation-Current Subjective Patient agrees to PT. Objective Patient Orientation: Normal For Age ROM/Strength ROM Lower Extremities bilateral LE WFL Strength Lower Extremities 4/5 grossly bilateral LE all planes Integumentary/Posture Bowel Incontinence: No Bladder Incontinence: No Posture WFL Neuromuscular (Tone, Coordination, Reflexes) grossly intact Sensory Vision: Functional Hearing: Functional Transfers Roll Left to Right (QC): 6 Lying to Sitting/Side of Bed(Q: 6 Sit to Stand (QC): 6 Chair/Hix-my-Ighob Xfer(QC): 6 Gait Does the Patient Walk?: Yes Mode of Locomotion: Walk Anticipated Mode of Locomotion: Walk Walk 10 feet (QC): 6 Walk 50 ft with 2 Turns(QC): 6 Walk 150 ft (QC): 6 Distance: 500' Gait Assistive Device: None Comments/Gait Description WBOS gait sequence initially with correcting during session Balance Sitting Static: Normal Sitting Dynamic: Normal Standing Static: Normal Standing Dynamic: Normal Assessment/Needs 61 y.o. male, is currently at independent [facility] with all gross motor skills and does not require skilled PT intervention. Rehab Potential: Fair PT Plan Treatment/Plan Treatment Plan: Discontinue PT, goals met Treatment Duration: Mar 24, 2022 Frequency: 1 time per week Estimated Hrs Per Day: .25 hour per day Patient and/or Family Agrees t: Yes Time/GCodes Time In: 1043 Time Out: 1053 Total Billed Treatment Time: 10 Total Billed Treatment 1 visit EVModC 10 min NANCY ALLEN PT Mar 24, 2022 11:32
[2022-03-24] MEDS: ENOXAPARIN 40 MG/0.4 ML (LOVENOX) SYR SC SCH (12:45)
[2022-03-24 16:00] VITALS: BP 121/70
[2022-03-24 20:00] VITALS: BP 155/80
[2022-03-24] MEDS: ACETAMINOPHEN 325 MG TABLET PO PRN (20:21)
[2022-03-24 23:11] VITALS: BP 117/68
[2022-03-25 03:39] VITALS: BP 134/84
[2022-03-25] MEDS: morphine INJ 4 MG/ML 1 ML (VIAL/SYRINGE) IV PRN ×2 (03:39→08:09)
--- NOTE | 2022-03-25 06:00 | Progress Note - Hospitalist ---
Subjective HPI/CC On Admission Date Seen by Provider: Mar 25, 2022 Time Seen by Provider: 09:00 CC: Severe alcohol withdrawal HPI: This is a 61yoWM known alcoholic who presents to the [facility] ER with alcohol withdrawal. He has abstained from alcohol several times in the past and he wants to quit. He has severe tremors and Ativan and Precedex will be started. Subjective/Events-last exam Pt is doing a lot better Discontinue morphine since he is asking for it every 4 hours Oxycodone doesn't help him Ambulating around Unsure what the plan is we may need to discharge back home and help alcohol cess ation programs Review of Systems General: Fatigue, Malaise Objective Exam Vital Signs Vital Signs Date Time Temp Pulse Resp B/P (MAP) Pulse Ox O2 Delivery O2 Flow Rate FiO2 03/25/22 16:00 37.2 90 18 126/79 (95) 97 Room Air 03/24/22 10:00 4.00 Capillary Refill : Less Than 3 Seconds General Appearance: No Apparent Distress, WD/WN, Chronically ill Respiratory: Lungs Clear, Normal Breath Sounds Cardiovascular: Regular Rate, Rhythm Neurologic/Psychiatric: Alert, Oriented x3, No Motor/Sensory Deficits, Normal Mood/Affect Results/Procedures Lab Laboratory Tests 03/25/22 05:48 Patient resulted labs reviewed. Assessment/Plan Assessment and Plan Assess & Plan/Chief Complaint Assessment: Alcohol withdrawal Alcoholism Alcoholic hepatitis Hypokalemia Plan: Move to 4th floor Seizure risk is less DC Monitor BP PT OT Critical Care Critically Ill Patient Diagnosis/Problems Diagnosis/Problems (1) Alcohol dependence with intoxication, unspecified Status: Acute (2) Alcoholism Status: Acute (3) Alcohol withdrawal delirium Status: Acute ESTIVEN AQUINO DO Mar 25, 2022 06:00
[2022-03-25 06:35] LABS: BASOPHILS # (AUTO) 0.1 10^3/uL (0.0-0.1); BASOPHILS % (AUTO) 1 % (0-10); EOSINOPHILS # (AUTO) 0.1 10^3/uL (0.0-0.3); EOSINOPHILS % (AUTO) 2 % (0-10); HEMATOCRIT 33 % (40-54); HEMOGLOBIN 10.3 g/dL (13.3-17.7); LYMPHOCYTES # (AUTO) 2.4 10^3/uL (1.0-4.0); LYMPHOCYTES % (AUTO) 34 % (12-44); MEAN CORPUSCULAR HEMOGLOBIN 26 pg (25-34); MEAN CORPUSCULAR HGB CONC 31 g/dL (32-36); MEAN CORPUSCULAR VOLUME 84 fL (80-99); MEAN PLATELET VOLUME 8.9 fL (9.0-12.2); MONOCYTES % (AUTO) 14 % (0-12); NEUTROPHILS # (AUTO) 3.4 10^3/uL (1.8-7.8); NEUTROPHILS % (AUTO) 49 % (42-75); PLATELET COUNT 366 10^3/uL (130-400)
[2022-03-25 06:44] LABS: ALBUMIN 3.3 GM/DL (3.2-4.5); POTASSIUM 4.3 MMOL/L (3.6-5.0)
[2022-03-25 06:46] LABS: CALCIUM 8.6 MG/DL (8.5-10.1)
[2022-03-25 06:47] LABS: TOTAL PROTEIN 6.4 GM/DL (6.4-8.2)
[2022-03-25 06:49] LABS: BILIRUBIN,TOTAL 0.4 MG/DL (0.1-1.0)
[2022-03-25 06:50] LABS: CREATININE SERUM 0.82 MG/DL (0.60-1.30)
[2022-03-25 06:54] LABS: MAGNESIUM 1.9 MG/DL (1.6-2.4)
[2022-03-25] MEDS: GABAPENTIN 300 MG (NEURONTIN) CAP PO SCH ×3 (08:09→21:19)
[2022-03-25] MEDS: FOLIC ACID 1 MG TAB PO SCH (08:09)
[2022-03-25] MEDS: DOCUSATE SODIUM 100 MG (COLACE) CAP PO SCH ×2 (08:09→21:19)
[2022-03-25] MEDS: BACLOFEN 10 MG (LIORESAL) TAB PO SCH ×3 (08:09→21:19)
[2022-03-25] MEDS: DIAZEPAM 5 MG (VALIUM) TABLET PO SCH (08:09)
[2022-03-25 08:35] VITALS: BP 105/59
[2022-03-25] MEDS ORDERED: DIAZEPAM 5 MG (VALIUM) TABLET PO PRN (09:30)
[2022-03-25 11:40] VITALS: BP 102/62
[2022-03-25] MEDS: ENOXAPARIN 40 MG/0.4 ML (LOVENOX) SYR SC SCH (12:56)
[2022-03-25 16:00] VITALS: BP 126/79
[2022-03-25] MEDS: ACETAMINOPHEN 325 MG TABLET PO PRN (17:04)
[2022-03-25 20:00] VITALS: BP 141/82
[2022-03-25 23:19] VITALS: BP 143/83
[2022-03-26 03:51] VITALS: BP 130/84
[2022-03-26 06:37] LABS: ALBUMIN 3.3 GM/DL (3.2-4.5)
[2022-03-26 06:38] LABS: POTASSIUM 4.6 MMOL/L (3.6-5.0)
[2022-03-26 06:39] LABS: CALCIUM 8.6 MG/DL (8.5-10.1)
[2022-03-26 06:40] LABS: TOTAL PROTEIN 6.6 GM/DL (6.4-8.2)
[2022-03-26 06:42] LABS: BILIRUBIN,TOTAL 0.3 MG/DL (0.1-1.0)
[2022-03-26 06:44] LABS: CREATININE SERUM 0.84 MG/DL (0.60-1.30)
[2022-03-26 06:47] LABS: BASOPHILS # (AUTO) 0.1 10^3/uL (0.0-0.1); BASOPHILS % (AUTO) 1 % (0-10); EOSINOPHILS # (AUTO) 0.2 10^3/uL (0.0-0.3); EOSINOPHILS % (AUTO) 2 % (0-10); HEMATOCRIT 31 % (40-54); HEMOGLOBIN 9.7 g/dL (13.3-17.7); LYMPHOCYTES # (AUTO) 2.4 10^3/uL (1.0-4.0); LYMPHOCYTES % (AUTO) 31 % (12-44); MEAN CORPUSCULAR HEMOGLOBIN 26 pg (25-34); MEAN CORPUSCULAR HGB CONC 31 g/dL (32-36); MEAN CORPUSCULAR VOLUME 83 fL (80-99); MEAN PLATELET VOLUME 8.9 fL (9.0-12.2); MONOCYTES # (AUTO) 0.9 10^3/uL (0.0-1.0); MONOCYTES % (AUTO) 12 % (0-12); NEUTROPHILS # (AUTO) 4.1 10^3/uL (1.8-7.8); NEUTROPHILS % (AUTO) 53 % (42-75); PLATELET COUNT 416 10^3/uL (130-400); WHITE BLOOD COUNT 7.7 10^3/uL (4.3-11.0)
[2022-03-26 06:47] LABS: MAGNESIUM 1.8 MG/DL (1.6-2.4)
[2022-03-26 08:09] VITALS: BP 122/84
[2022-03-26] MEDS: DOCUSATE SODIUM 100 MG (COLACE) CAP PO SCH (08:31)
[2022-03-26] MEDS: BACLOFEN 10 MG (LIORESAL) TAB PO SCH (08:31)
[2022-03-26] MEDS: FOLIC ACID 1 MG TAB PO SCH (08:31)
[2022-03-26] MEDS: GABAPENTIN 300 MG (NEURONTIN) CAP PO SCH (08:31)
[2022-03-26] MEDS: ACETAMINOPHEN 325 MG TABLET PO PRN (08:35)
[2022-03-26] MEDS ORDERED: BACL10TA PO (11:15)
[2022-03-26] MEDS ORDERED: DIAZ5TAB49 PO (11:15)
[2022-03-26] MEDS ORDERED: OXC5T PO (11:15)
[2022-03-26] MEDS ORDERED: GABA-490 PO (11:15)
--- NOTE | 2022-03-26 11:17 | Discharge Summary ---
Discharge Summary Hospital Course Was the Problem List Reviewed?: Yes Problems/Dx: (1) Alcohol dependence with intoxication, unspecified Status: Acute (2) Alcoholism Status: Acute (3) Alcohol withdrawal delirium Status: Acute Hospital Course Date of Admission: Mar 20, 2022 at 12:05 Admission Diagnosis : Family Physician/Provider: Jayla Thompson Aprn Date of Discharge: 03/26/22 Discharge Diagnosis: alcohol withdrawal Hospital Course: Pt had an uneventful hospital course for 7 days after he was admitted for alcoh ol detox. He was placed in the ICU for several days. He required Precedex and Benzodiazepines. He ultimately recovered. Transferred down to 4th floor. He was ambulatory and was doing well. He was discharged in improved condition. Labs and Pending Lab Test: Laboratory Tests 03/26/22 05:44: Sodium Level 133L, Potassium Level 4.6, Chloride Level 104, Carbon Dioxide Level 18L, Anion Gap 11, Blood Urea Nitrogen 14, Creatinine 0.84, Estimat Glomerular Filtration Rate 100, BUN/Creatinine Ratio 17, Glucose Level 98, Calcium Level 8.6, Corrected Calcium 9.2, Magnesium Level 1.8, Total Bilirubin 0.3, Aspartate Amino Transf (AST/SGOT) 25, Alanine Aminotransferase (ALT/SGPT) 38, Alkaline Phosphatase 93, Total Protein 6.6, Albumin 3.3 03/26/22 06:36: White Blood Count 7.7, Red Blood Count 3.73L, Hemoglobin 9.7L, Hematocrit 31L, Mean Corpuscular Volume 83, Mean Corpuscular Hemoglobin 26, Mean Corpuscular Hemoglobin Concent 31L, Red Cell Distribution Width 20.1H, Platelet Count 416H, Mean Platelet Volume 8.9L, Immature Granulocyte % (Auto) 1, Neutrophils (%) (Auto) 53, Lymphocytes (%) (Auto) 31, Monocytes (%) (Auto) 12, Eosinophils (%) (Auto) 2, Basophils (%) (Auto) 1, Neutrophils # (Auto) 4.1, Lymphocytes # (Auto) 2.4, Monocytes # (Auto) 0.9, Eosinophils # (Auto) 0.2, Basophils # (Auto) 0.1, Immature Granulocyte # (Auto) 0.1 Microbiology 03/20/22 MRSA Screen - Final, Complete MRSA not isolated Home Meds Active Baclofen 10 Mg Tablet 10 Mg PO TID Gabapentin 400 Mg Capsule 400 Mg PO TID Diazepam 5 Mg Tablet 5 Mg PO TID PRN Oxyir Tablet (Oxycodone HCl) 5 Mg Tab 5 Mg PO Q4HR PRN Reported Tylenol Extra Strength (Acetaminophen) 500 Mg Tablet 500-1,000 Mg PO Q8H PRN Ibuprofen 200 Mg Capsule 400-600 Mg PO Q8H PRN Tylenol Extra Strength (Acetaminophen) 500 Mg Tablet 1,000 Mg PO DAILY TAKES 2 (500MG) TABS Ibuprofen 200 Mg Tablet 800 Mg PO DAILY TAKES 4 (200MG) TABS Vitamin B-12 (Cyanocobalamin (Vitamin B-12)) 1,000 Mcg Capsule 1,000 Mcg PO DAILY Biotin 2,500 Mcg Capsule 2,500 Mcg PO DAILY Men's 50 Plus Multivitamin Tab (Multivit-Min/Folic/Vit K/Lycop) 1 Each Tablet 1 Each PO DAILY Aspirin EC (Aspirin) 81 Mg Tablet.dr 81 Mg PO DAILY Assessment/Pt Instructions PCP 1 week Discharge Planning: <30 minutes discharge planning Discharge Instructions Discharge Diet: No Restrictions Discharge Physical Examination Vital Signs Vital Signs Date Time Temp Pulse Resp B/P (MAP) Pulse Ox O2 Delivery O2 Flow Rate FiO2 03/26/22 08:09 37.0 89 18 122/84 (97) 96 Room Air 03/24/22 10:00 4.00 General Appearance: No Apparent Distress, WD/WN, Chronically ill Allergies: Coded Allergies: No Known Drug Allergies (Unverified , 10/16/20) Discharge Summary Date of Admission Mar 20, 2022 at 12:05 Date of Discharge Discharge Date: Mar 26, 2022 Admission Diagnosis Assessment: Alcohol withdrawal Alcoholism Alcoholic hepatitis Plan: ICU Seizure risk is high Discharge Diagnosis Assessment: Alcohol withdrawal Alcoholism Alcoholic hepatitis Hypokalemia Plan: Move to 4th floor Seizure risk is less DC Monitor BP PT OT (1) Alcohol dependence with intoxication, unspecified Status: Acute (2) Alcoholism Status: Acute (3) Alcohol withdrawal delirium Status: Acute ESTIVEN AQUINO DO Mar 26, 2022 11:17
[2022-03-26 11:23] VITALS: BP 125/85
[2022-03-26 11:31] VITALS: BP 125/85
== END 2022-03-26 11:32 | disposition home or self-care (01) | DRG 897 ==
LOC: EDUNIT# 08:54 → ER FS 08:55 → ICU 12:05 → 4TH 03-24 11:16
PROVIDERS: ADMIT Internal Medicine; ATTEND Internal Medicine
DX: F10.221 Alcohol dependence with intoxication delirium (principal); F10.231 Alcohol dependence with withdrawal delirium; K70.10 Alcoholic hepatitis without ascites; Y90.6 Blood alcohol level of 120-199 mg/100 ml; E87.6 Hypokalemia; E83.42 Hypomagnesemia; Z79.82 Long term (current) use of aspirin; Z79.899 Other long term (current) drug therapy; K72.90 Hepatic failure, unspecified without coma; F41.9 Anxiety disorder, unspecified; F32.A Depression, unspecified; F17.210 Nicotine dependence, cigarettes, uncomplicated; D64.9 Anemia, unspecified; R09.02 Hypoxemia
CPT/HCPCS: 36415; 71045; 80053; 80306; 80320; 80329; 82947; 83735; 84132; 85025; 85610; 87081; 93005; 94760; 96374; 96375; 96376